=== PATIENT | female | born 1975 | race Caucasian/White ===

== ENCOUNTER → 2016-07-06 | Emergency (ER) | payer BC ==
[~2016-07-06] VITALS: Ht 167.6 cm; Wt 104.3 kg
[~2016-07-06] MED LIST: ASPI325T OR; ASPI81CH PO; ASPI81TA83 OR; ATOR1TAB21 PO; ESTR3TA OR; LIPI80TA OR; LOPR50TA OR; TRAM50TA2 OR
[2016-07-06 12:13] VITALS: BP 155/103
== END | disposition left against medical advice (07) ==
LOC: M ED 15:48
DX: R05 Cough (principal); Z53.29 Procedure and treatment not carried out because of patient's decision for other reasons

== ENCOUNTER → 2016-10-04 | Outpatient (CLI) | payer BC ==
--- NOTE | 2016-10-05 08:20 | REP ---
RIGHT FOOT, FOUR VIEWS: HISTORY: Sprain. There is no acute fracture or dislocation. The joint spaces are normal in appearance. IMPRESSION: There is no acute fracture or dislocation. Signed by Ag Sharma MD 10/05/2016 08:35 A
== END ==
LOC: M WUC 10:56
PROVIDERS: ATTEND Physician Assistant
DX: S93.601A Unspecified sprain of right foot, initial encounter (principal); W18.30XA Fall on same level, unspecified, initial encounter; Y92.009 Unspecified place in unspecified non-institutional (private) residence as the place of occurrence of the external cause

== ENCOUNTER 2016-12-19 13:51 | Emergency (ER) | payer BC ==
[~2016-12-19] VITALS: Ht 167.6 cm; Wt 110.7 kg
[2016-12-19] MEDS ORDERED: CIPR-250 PO (14:12)
[2016-12-19] MEDS ORDERED: NORCO, ANEXSIA 5/325MG TABLET (HYDROcodone/ACETAMINOPHEN) PO ONE (16:45)
[2016-12-19] MEDS ORDERED: ONDANSETRON 4 MG ORAL DISINTEGRATING TAB (S0181) PO ONE (16:45)
[2016-12-19 16:54] LABS: BASO % 0.5 % (0.0-1.0); EOS # 0.2 K/mm3 (0.0-0.50); EOS % 2.6 % (0.0-3.0); LARGE UNSTAINED CELL # 0.2 K/mm3 (0.0-0.4); LARGE UNSTAINED CELL % 1.9 % (0.0-4.0); LYMPH # 2.9 K/mm3 (1.5-4.5); LYMPH % 27.5 % (24.0-44.0); MEAN CORPUSCULAR HGB CONC 35.2 g/dl (32.0-36.5); MEAN CORPUSCULAR VOLUME 93.9 fl (80.0-96.0); MONO # 0.7 K/mm3 (0.0-0.8); MONO % 6.7 % (0.0-5.0); NEUTROPHILS % 60.8 % (36.0-66.0); PLATELET COUNT, AUTOMATED 378 k/mm3 (150-450); RED CELL DISTRIBUTION WIDTH 13.5 % (11.5-14.5); WHITE BLOOD COUNT 9.8 K/mm3 (4.0-10.0)
[2016-12-19 17:34] LABS: ANION GAP 10 MEQ/L (8-16); BLOOD UREA NITROGEN 9 MG/DL (7-18); CALCIUM LEVEL 8.8 MG/DL (8.5-10.1); CARBON DIOXIDE LEVEL 23 MEQ/L (21-32); CHLORIDE LEVEL 110 MEQ/L (98-107); CREATININE FOR GFR 0.68 MG/DL (0.55-1.02); GLOMERULAR FILTRATION RATE > 60.0 (>58); GLUCOSE, FASTING 105 MG/DL (70-105); POTASSIUM SERUM 4.2 MEQ/L (3.5-5.1); SODIUM LEVEL 143 MEQ/L (136-145)
[2016-12-19 17:47] VITALS: BP 124/85
[2016-12-19] MEDS ORDERED: ULTR50TA8 PO (18:33)
--- NOTE | 2016-12-19 19:02 | REP ---
Left upper quadrant sonography: History: Evaluate spleen, left kidney. History of splenic cyst. Comparison is made with the CT study of the abdomen from 12/18/2015, [facility] exam. This study showed a 14 mm left adrenal nodule and some irregularity which appears to be old post-traumatic in the spleen along its superior surface. Sonographic findings: Renal cortical echogenicity pattern is normal in the left kidney. Left renal dimensions are 10.6 x 5.6 x 5.4 cm. No renal cyst, hydronephrosis, or mass is seen. The spleen appears homogeneous sonographically measuring 9.9 x 9.2 x 5.1 cm. No splenic irregularity can be resolved sonographically to correspond with the CT finding. The left adrenal gland could not be seen. Signed by Saúl Fernandez MD 12/19/2016 07:41 P
== END 2016-12-19 18:41 | disposition home or self-care (01) ==
LOC: M ED 13:51
DX: R10.9 Unspecified abdominal pain (principal); I25.2 Old myocardial infarction; I10 Essential (primary) hypertension; E78.00 Pure hypercholesterolemia, unspecified; F32.9 Major depressive disorder, single episode, unspecified; Z79.82 Long term (current) use of aspirin; Z79.899 Other long term (current) drug therapy; Z88.0 Allergy status to penicillin; Z91.040 Latex allergy status; Z90.49 Acquired absence of other specified parts of digestive tract; Z90.79 Acquired absence of other genital organ(s)

== ENCOUNTER 2017-01-02 21:25 | Emergency (ER) | payer BC ==
[~2017-01-02] VITALS: Ht 167.6 cm; Wt 92.7 kg
[2017-01-02 21:25] VITALS: BP 136/92
[~2017-01-02 21:25] MED LIST changes: +CIPR-250 PO; +ULTR50TA8 PO
[2017-01-02] MEDS ORDERED: BACTRIM 160MG/800MG DS TAB PO ONE (22:15)
[2017-01-02] MEDS ORDERED: CLINDAMYCIN 150 MG CAP PO ONE (22:15)
[2017-01-02] MEDS ORDERED: SULF1TAB23 PO (22:30)
[2017-01-02] MEDS ORDERED: CLIN150C14 PO (22:30)
== END 2017-01-02 22:39 | disposition home or self-care (01) ==
LOC: M ED 21:25
DX: S61.232A Puncture wound without foreign body of right middle finger without damage to nail, initial encounter (principal); S61.252A Open bite of right middle finger without damage to nail, initial encounter; W55.01XA Bitten by cat, initial encounter; Y92.019 Unspecified place in single-family (private) house as the place of occurrence of the external cause; Y93.89 Activity, other specified; Y99.8 Other external cause status; Z79.899 Other long term (current) drug therapy; Z79.82 Long term (current) use of aspirin; Z91.040 Latex allergy status; Z88.0 Allergy status to penicillin

== ENCOUNTER 2017-10-16 08:42 | Day surgery (SDC) | payer BC ==
[2017-10-16] MEDS: NS 1,000 ML IV (09:30)
[2017-10-16] MEDS ORDERED: LIDOCAINE 2% INJ 100 MG/5 ML SDV (FOR ANES.) As Ordered (10:09)
[2017-10-16] MEDS ORDERED: PROPOFOL 200 MG/20 ML VIAL As Ordered (10:09)
== END 2017-10-16 11:36 | disposition home or self-care (01) ==
LOC: M OPP 08:42
DX: K64.8 Other hemorrhoids (principal); D12.4 Benign neoplasm of descending colon; K52.9 Noninfective gastroenteritis and colitis, unspecified; R93.3 Abnormal findings on diagnostic imaging of other parts of digestive tract; E78.00 Pure hypercholesterolemia, unspecified; F17.210 Nicotine dependence, cigarettes, uncomplicated; Z79.82 Long term (current) use of aspirin; Z79.899 Other long term (current) drug therapy; Z91.040 Latex allergy status; Z88.0 Allergy status to penicillin; Z90.49 Acquired absence of other specified parts of digestive tract; Z90.711 Acquired absence of uterus with remaining cervical stump; Z87.59 Personal history of other complications of pregnancy, childbirth and the puerperium
CPT/HCPCS: 45385

== ENCOUNTER 2017-11-30 17:18 | Emergency (ER) | payer BC | END 2017-11-30 20:18 | disposition home or self-care (01) | LOC: M ED 17:18 | DX: M54.5 Low back pain (principal); I10 Essential (primary) hypertension; I25.2 Old myocardial infarction; F32.9 Major depressive disorder, single episode, unspecified; F17.200 Nicotine dependence, unspecified, uncomplicated; Z88.0 Allergy status to penicillin; Z91.040 Latex allergy status; Z79.899 Other long term (current) drug therapy; Z79.82 Long term (current) use of aspirin | CPT/HCPCS: 72131 ==

== ENCOUNTER 2017-12-06 14:05 | Emergency (ER) | payer BC | END 2017-12-06 15:13 | disposition home or self-care (01) | LOC: M ED 14:05 | DX: M54.41 Lumbago with sciatica, right side (principal); M51.36 Other intervertebral disc degeneration, lumbar region; I10 Essential (primary) hypertension; I25.2 Old myocardial infarction; E78.00 Pure hypercholesterolemia, unspecified; Z91.040 Latex allergy status; Z88.0 Allergy status to penicillin; Z79.899 Other long term (current) drug therapy; Z79.82 Long term (current) use of aspirin | CPT/HCPCS: 99282 ==

== ENCOUNTER 2018-01-10 12:34 | Emergency (ER) | payer BC ==
[2018-01-10] MEDS: KETOROLAC 60 MG/2 ML VIAL (J1885) IM (13:42)
[2018-01-10] MEDS: predniSONE 20 MG TAB PO (13:42)
== END 2018-01-10 14:10 | disposition home or self-care (01) ==
LOC: M ED 12:34
DX: M54.5 Low back pain (principal); M51.9 Unspecified thoracic, thoracolumbar and lumbosacral intervertebral disc disorder; I25.10 Atherosclerotic heart disease of native coronary artery without angina pectoris; I25.2 Old myocardial infarction; Z88.0 Allergy status to penicillin; Z91.040 Latex allergy status; Z79.899 Other long term (current) drug therapy; Z79.82 Long term (current) use of aspirin
CPT/HCPCS: J1885

== ENCOUNTER 2018-02-09 10:50 | Emergency (ER) | payer BC ==
[2018-02-09 11:50] LABS: BASO # 0.1 10^3/uL (0.0-0.2); BASO % 0.5 % (0.0-1.0); EOS # 0.2 10^3/uL (0.0-0.50); EOS % 1.5 % (0.0-3.0); HEMATOCRIT 41.8 % (36.0-47.0); HEMOGLOBIN 14.4 g/dl (12.0-15.5); IMMATURE GRANULOCYTE % 0.4 % (0-3.0); LYMPH % 26.9 % (24.0-44.0); MEAN CORPUSCULAR HEMOGLOBIN 32.1 pg (27.0-33.0); MEAN CORPUSCULAR HGB CONC 34.4 g/dl (32.0-36.5); MEAN CORPUSCULAR VOLUME 93.3 fl (80.0-96.0); MONO # 0.9 10^3/uL (0.0-0.8); MONO % 8.4 % (0.0-5.0); NEUTROPHILS % 62.3 % (36.0-66.0); PLATELET COUNT, AUTOMATED 366 10^3/uL (150-450); RED BLOOD COUNT 4.48 10^6/uL (4.00-5.40); RED CELL DISTRIBUTION WIDTH 13.3 % (11.5-14.5); WHITE BLOOD COUNT 11.3 10^3/uL (4.0-10.0)
[2018-02-09 12:03] LABS: INR 0.96; PROTHROMBIN TIME 12.9 SECONDS (12.1-14.4)
[2018-02-09 12:04] LABS: PARTIAL THROMBOPLASTIN TIME 28.1 SECONDS (25.4-37.6)
[2018-02-09 12:28] LABS: ALBUMIN 3.2 GM/DL (3.2-5.2); ALKALINE PHOSPHATASE 94 U/L (45-117); ALT/SGPT 22 U/L (12-78); ANION GAP 7 MEQ/L (8-16); AST/SGOT 19 U/L (7-37); BILIRUBIN,DIRECT < 0.1 MG/DL (0.0-0.2); BILIRUBIN,TOTAL 0.2 MG/DL (0.2-1.0); BLOOD UREA NITROGEN 11 MG/DL (7-18); CALCIUM LEVEL 8.5 MG/DL (8.5-10.1); CARBON DIOXIDE LEVEL 25 MEQ/L (21-32); CHLORIDE LEVEL 109 MEQ/L (98-107); CPK CREATINE PHOSPHOKINASE 120 U/L (26-192); GLOMERULAR FILTRATION RATE > 60.0 (>58); GLUCOSE, FASTING 97 MG/DL (70-100); MB/CK RELATIVE INDEX 0.83 (< OR =4); POTASSIUM SERUM 3.7 MEQ/L (3.5-5.1); SODIUM LEVEL 141 MEQ/L (136-145); TOTAL PROTEIN 7.2 GM/DL (6.4-8.2); TROPONIN I < 0.02 NG/ML (< 0.10)
[2018-02-09 14:48] LABS: KETONE, URINE AUTO RFX NEGATIVE (NEGATIVE)
[2018-02-09 14:49] LABS: LEUKOCYTE ESTERASE UR AUTO RFX NEGATIVE (NEGATIVE); MICROSCOPIC INDICATED? RFX NO (NO); NITRITE, URINE AUTO RFX NEGATIVE (NEGATIVE); RBC, URINE AUTO RFX 0 /HPF (0-3); WBC, URINE AUTO RFX 1 /HPF (0-3)
[2018-02-09 17:42] LABS: CK-MB VALUE MASS < 1.0 NG/ML (<3.6); CPK CREATINE PHOSPHOKINASE 115 U/L (26-192); MB/CK RELATIVE INDEX 0.87 (< OR =4); TROPONIN I < 0.02 NG/ML (< 0.10)
== END 2018-02-09 18:29 | disposition home or self-care (01) ==
LOC: M ED 10:50
DX: R42 Dizziness and giddiness (principal); R20.2 Paresthesia of skin; I25.2 Old myocardial infarction; M48.00 Spinal stenosis, site unspecified; M51.9 Unspecified thoracic, thoracolumbar and lumbosacral intervertebral disc disorder; Z72.0 Tobacco use; Z79.82 Long term (current) use of aspirin; Z79.899 Other long term (current) drug therapy; Z88.0 Allergy status to penicillin; Z91.040 Latex allergy status
CPT/HCPCS: 70551

== ENCOUNTER → 2018-02-24 | Outpatient (REF) | payer BC ==
[2018-02-24 17:37] LABS: PLATELET COUNT, AUTOMATED 451 10^3/uL (150-450)
[2018-02-24 17:39] LABS: INR 0.95; PROTHROMBIN TIME 12.8 SECONDS (12.1-14.4)
[2018-02-24 17:40] LABS: PARTIAL THROMBOPLASTIN TIME 29.1 SECONDS (25.4-37.6)
== END ==
LOC: M LABNEURO 12:03
DX: Z01.812 Encounter for preprocedural laboratory examination (principal); D69.1 Qualitative platelet defects

== ENCOUNTER 2018-04-07 21:13 | Emergency (ER) | payer MEDICAID, BC | END 2018-04-07 22:37 | disposition home or self-care (01) | LOC: M ED 21:13 | DX: M48.00 Spinal stenosis, site unspecified (principal); W19.XXXA Unspecified fall, initial encounter; Y92.090 Kitchen in other non-institutional residence as the place of occurrence of the external cause; M54.9 Dorsalgia, unspecified; F17.210 Nicotine dependence, cigarettes, uncomplicated; Z88.0 Allergy status to penicillin; Z91.040 Latex allergy status | CPT/HCPCS: 99284 ==

== ENCOUNTER 2018-05-12 13:01 | Emergency (ER) | payer BC, OTHER ==
[~2018-05-12] VITALS: Ht 167.6 cm; Wt 109.1 kg
[~2018-05-12 13:01] MED LIST changes: +ATOR80TA59 PO; +CLIN150C14 PO; +GABA-843 PO; +MOBI4TAB PO; +NORCOTAB PO; +PRED10TA2 PO; +PRED20TA PO; +SULF1TAB93 PO; +VARE1TA PO; +ZANA4TAB PO
--- NOTE | 2018-05-12 13:32 | REP ---
Portable chest x-ray: Single view. History: Chest pain. Comparison chest x-ray: February 09, 2018. Findings: EKG monitoring electrodes overlie the chest. The lungs are well inflated and clear. The pleural angles are sharp. Heart size is normal. Pulmonary vasculature is not increased. No significant bony abnormality is seen. Impression: No active disease. Electronically Signed by Saúl Fernandez MD 05/12/2018 01:24 P
[2018-05-12 13:45] LABS: BASO # 0.1 10^3/uL (0.0-0.2); BASO % 0.5 % (0.0-1.0); EOS # 0.2 10^3/uL (0.0-0.50); EOS % 1.6 % (0.0-3.0); HEMATOCRIT 42.9 % (36.0-47.0); HEMOGLOBIN 14.9 g/dl (12.0-15.5); LYMPH # 3.1 10^3/uL (1.5-4.5); LYMPH % 25.4 % (24.0-44.0); MEAN CORPUSCULAR HEMOGLOBIN 32.5 pg (27.0-33.0); MEAN CORPUSCULAR HGB CONC 34.7 g/dl (32.0-36.5); MEAN CORPUSCULAR VOLUME 93.5 fl (80.0-96.0); MONO # 0.9 10^3/uL (0.0-0.8); NEUTROPHILS # 7.8 10^3/uL (1.8-7.7); PLATELET COUNT, AUTOMATED 428 10^3/uL (150-450); RED BLOOD COUNT 4.59 10^6/uL (4.00-5.40); WHITE BLOOD COUNT 12.1 10^3/uL (4.0-10.0)
[2018-05-12 13:54] LABS: INR 0.91; PROTHROMBIN TIME 12.3 SECONDS (12.1-14.4)
[2018-05-12] MEDS ORDERED: methylPREDNISolone INJ 125 MG/2 ML VIAL (J2930) IV ONE (14:00)
[2018-05-12] MEDS ORDERED: IPRATROPIUM 0.5MG/ALBUTEROL 2.5MG INH SOL UD 3ML (DUONEB)(J7620) NEB ONE (14:00)
[2018-05-12 14:25] LABS: ALBUMIN 3.4 GM/DL (3.2-5.2); ALT/SGPT 27 U/L (12-78); BILIRUBIN,DIRECT < 0.1 MG/DL (0.0-0.2); BILIRUBIN,TOTAL 0.3 MG/DL (0.2-1.0); BLOOD UREA NITROGEN 8 MG/DL (7-18); CALCIUM LEVEL 8.3 MG/DL (8.5-10.1); CARBON DIOXIDE LEVEL 24 MEQ/L (21-32); CHLORIDE LEVEL 105 MEQ/L (98-107); CK-MB VALUE MASS < 1.0 NG/ML (<3.6); CPK CREATINE PHOSPHOKINASE 130 U/L (26-192); CREATININE FOR GFR 0.74 MG/DL (0.55-1.30); GLOMERULAR FILTRATION RATE > 60.0 (>58); GLUCOSE, FASTING 119 MG/DL (70-100); LIPASE 88 U/L (73-393); MB/CK RELATIVE INDEX 0.77 (< OR =4); NT-PRO BNP 20 PG/ML (<125); POTASSIUM SERUM 4.3 MEQ/L (3.5-5.1); SODIUM LEVEL 136 MEQ/L (136-145); TROPONIN I < 0.02 NG/ML (< 0.10)
[2018-05-12] MEDS ORDERED: ISOVUE-370 76% 100ML VIAL (Q9967) As Ordered ONE (14:36)
[2018-05-12] MEDS ORDERED: ALBU17IN2 INH (15:31)
[2018-05-12] MEDS ORDERED: ZITHTAB PO (15:31)
[2018-05-12] MEDS ORDERED: PRED10TA2 PO (15:31)
--- NOTE | 2018-05-12 15:36 | REP ---
CT pulmonary angiogram: With IV contrast. History: Chest pain. Tachycardia. Rule out pulmonary embolus. Comparison studies: Comparison CT study July 11, 2011 Contrast dose: 75 cc's of Isovue [address] technique: Helical scanning is acquired and overlapping 1.5 mm and contiguous 3 mm axial images are reformatted. In addition, maximum intensity projection and multiplanar re-formation images are generated in sagittal and coronal imaging projections. CT pulmonary angiographic findings: There is good opacification of the pulmonary arterial tree and there is no CT evidence of pulmonary embolism. The thoracic aorta enhances homogeneously. It is normal in coarse and caliber. No aneurysm or dissection is seen. No hilar or mediastinal mass or adenopathy is observed. No pleural or pericardial effusion is seen. There is some vascular calcification including left coronary artery vascular calcification. There are several noncalcified tiny subcentimeter pulmonary nodules all of which are unchanged from the [address] The largest of these is in the left lower lobe measuring 5 mm in diameter. No infiltrate is seen. No bony destructive lesion. Impression: No CT evidence of pulmonary embolus. Some vascular calcification. Stable pulmonary nodules. No active disease. Electronically Signed by Saúl Fernandez MD 05/12/2018 05:56 P
--- NOTE | 2018-05-12 15:39 | ECGEPIP ---
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
[2018-05-12 15:50] VITALS: BP 135/59
--- NOTE | 2018-05-13 15:46 | ED PDOC ---
Post-Departure Follow-Up dr uribe faxed formal report of cta for fu Keo Hernandez MD May 13, 2018 15:46
== END 2018-05-12 15:53 | disposition home or self-care (01) ==
LOC: M ED 13:01
DX: J40 Bronchitis, not specified as acute or chronic (principal); F17.210 Nicotine dependence, cigarettes, uncomplicated; E78.5 Hyperlipidemia, unspecified; Z88.0 Allergy status to penicillin; Z79.899 Other long term (current) drug therapy; Z79.82 Long term (current) use of aspirin; Z91.040 Latex allergy status
CPT/HCPCS: 71045; 71275; 80048; 80076; 82550; 82553; 83690; 83880; 84443; 84484; 85025; 85610; 93005; 93041; 94640; 94760; 96374; 99285; J2930; Q9967

== ENCOUNTER 2018-06-22 20:33 | Emergency (ER) | payer BC, OTHER ==
[~2018-06-22] VITALS: Ht 167.6 cm; Wt 109.1 kg
[~2018-06-22 20:33] MED LIST changes: +ALBU17IN2 INH; +ZITHTAB PO
[2018-06-22] MEDS ORDERED: PRED20TA PO (23:27)
[2018-06-22] MEDS ORDERED: predniSONE 20 MG TAB PO ONE (23:30)
[2018-06-22] MEDS ORDERED: tiZANidine 4 MG TAB PO ONE (23:30)
[2018-06-22 23:53] VITALS: BP 138/72
== END 2018-06-22 23:53 | disposition home or self-care (01) ==
LOC: M ED 20:33
DX: M54.42 Lumbago with sciatica, left side (principal); I10 Essential (primary) hypertension; I25.2 Old myocardial infarction; G47.33 Obstructive sleep apnea (adult) (pediatric); M48.00 Spinal stenosis, site unspecified; M51.9 Unspecified thoracic, thoracolumbar and lumbosacral intervertebral disc disorder; F17.200 Nicotine dependence, unspecified, uncomplicated; Z88.0 Allergy status to penicillin; Z91.040 Latex allergy status; Z79.82 Long term (current) use of aspirin; Z79.899 Other long term (current) drug therapy

== ENCOUNTER 2018-07-08 12:03 | Emergency (ER) | payer BC ==
[~2018-07-08] VITALS: Ht 167.6 cm; Wt 109.1 kg
[2018-07-08] MEDS ORDERED: GABA800T4 (12:15)
[2018-07-08 13:41] LABS: BASO # 0.1 10^3/uL (0.0-0.2); BASO % 0.5 % (0.0-1.0); EOS # 0.1 10^3/uL (0.0-0.50); EOS % 1.3 % (0.0-3.0); HEMATOCRIT 43.5 % (36.0-47.0); HEMOGLOBIN 14.6 g/dl (12.0-15.5); LYMPH # 2.6 10^3/uL (1.5-4.5); MEAN CORPUSCULAR HGB CONC 33.6 g/dl (32.0-36.5); MEAN CORPUSCULAR VOLUME 95.4 fl (80.0-96.0); MONO # 0.7 10^3/uL (0.0-0.8); MONO % 6.8 % (0.0-5.0); NEUTROPHILS # 6.8 10^3/uL (1.8-7.7); NEUTROPHILS % 66.1 % (36.0-66.0); PLATELET COUNT, AUTOMATED 394 10^3/uL (150-450); RED BLOOD COUNT 4.56 10^6/uL (4.00-5.40); WHITE BLOOD COUNT 10.3 10^3/uL (4.0-10.0)
--- NOTE | 2018-07-08 14:10 | REP ---
Acute abdominal series: Three views. History: Abdomen pain. Comparison chest x-rays from May 12, 2018. Findings: Today's upright chest radiograph is normal. There is no evidence of infiltrate or free subdiaphragmatic air. Heart is not enlarged. Supine and erect views of the abdomen show clips in the right upper quadrant consistent with previous cholecystectomy. There is some mild vascular calcification. Degenerative spondylosis changes are noted in the lumbar spine. No other bony abnormality is seen. Flank stripes and psoas margins are symmetric. Bowel gas pattern is normal. Impression: Unremarkable acute abdominal series. Clips in right upper quadrant post cholecystectomy. Electronically Signed by Saúl Fernandez MD 07/08/2018 02:02 P
[2018-07-08 14:12] LABS: BLOOD UREA NITROGEN 13 MG/DL (7-18); CALCIUM LEVEL 8.6 MG/DL (8.5-10.1); CARBON DIOXIDE LEVEL 24 MEQ/L (21-32); CHLORIDE LEVEL 107 MEQ/L (98-107); CPK CREATINE PHOSPHOKINASE 108 U/L (26-192); CREATININE FOR GFR 0.65 MG/DL (0.55-1.30); GLOMERULAR FILTRATION RATE > 60.0 (>58); GLUCOSE, FASTING 107 MG/DL (70-100); LIPASE 119 U/L (73-393); MB/CK RELATIVE INDEX 0.93 (< OR =4); POTASSIUM SERUM 4.3 MEQ/L (3.5-5.1); SODIUM LEVEL 139 MEQ/L (136-145); TROPONIN I < 0.02 NG/ML (< 0.10)
[2018-07-08 15:27] VITALS: BP 130/84
--- NOTE | 2018-07-09 07:00 | ECGEPIP ---
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
== END 2018-07-08 15:29 | disposition home or self-care (01) ==
LOC: M ED 12:03
DX: R10.12 Left upper quadrant pain (principal); R11.0 Nausea; E78.5 Hyperlipidemia, unspecified; I25.2 Old myocardial infarction; K57.92 Diverticulitis of intestine, part unspecified, without perforation or abscess without bleeding; F17.210 Nicotine dependence, cigarettes, uncomplicated; Z88.0 Allergy status to penicillin; Z91.040 Latex allergy status; Z79.899 Other long term (current) drug therapy; Z79.82 Long term (current) use of aspirin

== ENCOUNTER → 2018-09-17 | Outpatient (REF) | payer BC ==
[~2018-09-17] MED LIST changes: -ASPI81CH PO; +ASPI81CH49 PO; +GABA800T4; +HYDR-3715 PO; -NORCOTAB PO
[2018-09-17 14:55] LABS: ALBUMIN 3.3 GM/DL (3.2-5.2); ALT/SGPT 17 U/L (12-78); BILIRUBIN,TOTAL 0.5 MG/DL (0.2-1.0); BLOOD UREA NITROGEN 8 MG/DL (7-18); CALCIUM LEVEL 8.3 MG/DL (8.5-10.1); CARBON DIOXIDE LEVEL 23 MEQ/L (21-32); CHLORIDE LEVEL 108 MEQ/L (98-107); CHOLESTEROL LEVEL 138 MG/DL (<200); CHOLESTEROL RISK RATIO 4.058 (<5); CREATININE FOR GFR 0.67 MG/DL (0.55-1.30); GLOMERULAR FILTRATION RATE > 60.0 (>58); GLUCOSE, FASTING 108 MG/DL (70-100); HDL CHOLESTEROL 34 MG/DL (>40); LDL CHOLESTEROL 71 MG/DL (<100); NON-HDL-C 104 MG/DL; POTASSIUM SERUM 3.9 MEQ/L (3.5-5.1); SODIUM LEVEL 139 MEQ/L (136-145); TOTAL PROTEIN 7.1 GM/DL (6.4-8.2); TRIGLYCERIDES LEVEL 164 MG/DL (<150)
== END ==
LOC: M LAB REF 12:54
PROVIDERS: ATTEND Family Medicine Addiction Medicine
DX: I25.2 Old myocardial infarction (principal)

== ENCOUNTER 2018-10-08 07:44 | Day surgery (SDC) | payer BC ==
[~2018-10-08] VITALS: Ht 167.6 cm; Wt 115.2 kg
[~2018-10-08 07:44] MED LIST changes: +CYMB1CAP4 PO; +LR 1,000 ML IV ONE; +LevoFLOXacin IV 500 MG in APPROPRIATE DILUENT 1 EA IV ONE
[2018-10-08] MEDS ORDERED: LIDOCAINE 1% SDV INJ 30 ML VIAL As Ordered ONE (09:37)
[2018-10-08] MEDS ORDERED: BUPIVACAINE HCL 0.25% 30 ML VIAL As Ordered ONE ×2 (09:37→10:27)
[2018-10-08] MEDS ORDERED: MIDAZOLAM INJ 2 MG/2 ML VIAL (J2250) As Ordered ONE (10:17)
[2018-10-08] MEDS ORDERED: dexameTHASONE 4 MG/ML 1ML VIAL (J1100) As Ordered ONE (10:17)
[2018-10-08] MEDS ORDERED: ROCURONIUM BROMIDE 50 MG/5 ML VIAL As Ordered ONE ×2 (10:17→10:24)
[2018-10-08] MEDS ORDERED: PROPOFOL 200 MG/20 ML VIAL As Ordered ONE (10:17)
[2018-10-08] MEDS ORDERED: LIDOCAINE 2% INJ 100 MG/5 ML SDV (FOR ANES.) As Ordered ONE (10:17)
[2018-10-08] MEDS ORDERED: fentaNYL 100 MCG/2 ML INJECTION (J3010) As Ordered ONE ×2 (10:17→10:24)
[2018-10-08] MEDS ORDERED: ONDANSETRON 4MG/2ML VIAL (J2405) As Ordered ONE ×3 (10:19→11:34)
[2018-10-08] MEDS ORDERED: PHENYLephrine HCL 500 MCG/5 ML (100MCG/ML) SYRINGE (J2370) As Ordered ONE (10:25)
[2018-10-08] MEDS ORDERED: SUGAMMADEX SODIUM 500 MG/5 ML VIAL (BRIDION) As Ordered ONE (10:51)
[2018-10-08] MEDS ORDERED: KETOROLAC 60 MG/2 ML VIAL (J1885) As Ordered ONE (10:51)
[2018-10-08] MEDS ORDERED: PERCOCET 5MG/325MG TAB As Ordered ONE (11:34)
[2018-10-08] MEDS: PERCOCET 5MG/325MG TAB PO PRN ×2 (11:40→12:22)
[2018-10-08] MEDS ORDERED: KETOROLAC 30 MG/ML VIAL (J1885) IV PRN (12:00)
[2018-10-08] MEDS ORDERED: NORCO, ANEXSIA 5/325MG TABLET (HYDROcodone/ACETAMINOPHEN) PO PRN ×2 (12:00)
[2018-10-08] MEDS ORDERED: ONDANSETRON 4MG/2ML VIAL (J2405) IV PRN ×2 (12:00→12:15)
[2018-10-08] MEDS ORDERED: LR 1,000 ML IV SCH (12:15)
[2018-10-08] MEDS ORDERED: fentaNYL 100 MCG/2 ML INJECTION (J3010) IV PRN (12:15)
[2018-10-08 12:50] VITALS: BP 137/84
== END 2018-10-08 12:53 | disposition home or self-care (01) ==
LOC: M SDC 07:44
PROVIDERS: ATTEND Surgery
DX: K42.9 Umbilical hernia without obstruction or gangrene (principal); E78.00 Pure hypercholesterolemia, unspecified; I25.2 Old myocardial infarction; F32.9 Major depressive disorder, single episode, unspecified; F17.210 Nicotine dependence, cigarettes, uncomplicated; G47.30 Sleep apnea, unspecified; Z88.0 Allergy status to penicillin; Z91.040 Latex allergy status; Z79.82 Long term (current) use of aspirin; Z79.899 Other long term (current) drug therapy
CPT/HCPCS: 49652; C1781; J1100; J1885; J1956; J2250; J2370; J2405; J3010

== ENCOUNTER 2018-10-15 17:25 | Emergency (ER) | payer BC ==
[~2018-10-15] VITALS: Ht 167.6 cm; Wt 111.4 kg
[~2018-10-15 17:25] MED LIST changes: -LR 1,000 ML IV ONE; -LevoFLOXacin IV 500 MG in APPROPRIATE DILUENT 1 EA IV ONE
[2018-10-15] MEDS ORDERED: HYDR-3713 PO (17:48)
[2018-10-15] MEDS ORDERED: DULO1CAP PO (17:48)
[2018-10-15] MEDS ORDERED: ACET-861 PO (17:48)
[2018-10-15] MEDS ORDERED: NITR0.4S14 SL (17:48)
[2018-10-15] MEDS ORDERED: NORT10CA2 PO (17:48)
[2018-10-15] MEDS ORDERED: NS 1,000 ML IV ONE (18:30)
[2018-10-15 18:38] LABS: BASO # 0.1 10^3/uL (0.0-0.2); BASO % 0.5 % (0.0-1.0); EOS # 0.2 10^3/uL (0.0-0.50); EOS % 1.7 % (0.0-3.0); HEMATOCRIT 43.8 % (36.0-47.0); HEMOGLOBIN 15.2 g/dl (12.0-15.5); LYMPH # 3.5 10^3/uL (1.5-4.5); LYMPH % 26.1 % (24.0-44.0); MEAN CORPUSCULAR HEMOGLOBIN 33.3 pg (27.0-33.0); MEAN CORPUSCULAR HGB CONC 34.7 g/dl (32.0-36.5); MEAN CORPUSCULAR VOLUME 96.1 fl (80.0-96.0); MONO % 7.1 % (0.0-5.0); NEUTROPHILS # 8.5 10^3/uL (1.8-7.7); NEUTROPHILS % 64.1 % (36.0-66.0); PLATELET COUNT, AUTOMATED 394 10^3/uL (150-450); RED BLOOD COUNT 4.56 10^6/uL (4.00-5.40); WHITE BLOOD COUNT 13.3 10^3/uL (4.0-10.0)
[2018-10-15 19:14] LABS: BLOOD UREA NITROGEN 13 MG/DL (7-18); CARBON DIOXIDE LEVEL 29 MEQ/L (21-32); CHLORIDE LEVEL 102 MEQ/L (98-107); CREATININE FOR GFR 0.78 MG/DL (0.55-1.30); GLOMERULAR FILTRATION RATE > 60.0 (>58); GLUCOSE, FASTING 113 MG/DL (70-100); POTASSIUM SERUM 3.5 MEQ/L (3.5-5.1); SODIUM LEVEL 138 MEQ/L (136-145)
[2018-10-15 19:15] LABS: ALBUMIN 3.4 GM/DL (3.2-5.2); ALT/SGPT 19 U/L (12-78); AMYLASE 28 U/L (25-115); BILIRUBIN,DIRECT < 0.1 MG/DL (0.0-0.2); BILIRUBIN,TOTAL 0.2 MG/DL (0.2-1.0); CALCIUM LEVEL 8.7 MG/DL (8.5-10.1); LIPASE 78 U/L (73-393); TOTAL PROTEIN 7.7 GM/DL (6.4-8.2)
[2018-10-15] MEDS ORDERED: ISOVUE-370 76% 100ML VIAL (Q9967) As Ordered ONE (19:18)
--- NOTE | 2018-10-15 20:07 | REPVR ---
EXAM: CT Abdomen and Pelvis With Contrast EXAM DATE/TIME: 10/15/2018 7:20 PM CLINICAL HISTORY: 43 years old, female; Abdominal pain; Periumbilical; Additional info: Right abd pain pod 7 umbilical hernia repair TECHNIQUE: Imaging protocol: Axial computed tomography images of the abdomen and pelvis with intravenous contrast. Coronal and sagittal reformatted images were created and reviewed. Radiation optimization: All CT scans at this facility use at least one of these dose optimization techniques: automated exposure control; mA and/or kV adjustment per patient size (includes targeted exams where dose is matched to clinical indication); or iterative reconstruction. Contrast material: ISOVUE 370; Contrast volume: 100 ml; Contrast route: IV; COMPARISON: No relevant prior studies available. FINDINGS: ABDOMEN: Liver: There is a diffuse decrease in hepatic parenchymal density, consistent with fatty infiltration. Gallbladder and bile ducts: There has been a cholecystectomy. Pancreas: Normal. No ductal dilation. Spleen: Normal. No splenomegaly. Adrenals: There is a focal hypodense mass in the left adrenal gland measures 1.8 x 1.6 cm in, consistent in appearance and density with a benign adrenal adenoma. Kidneys and ureters: Normal. No hydronephrosis. Stomach and bowel: Normal. No obstruction. No mucosal thickening. Appendix: No evidence of appendicitis. PELVIS: Bladder: Unremarkable as visualized. Reproductive: There has been a hysterectomy. ABDOMEN and PELVIS: Intraperitoneal space: Normal. No free air. No significant fluid collection. Bones/joints: This moderate to severe central spinal stenosis L3-4, and mild to moderate central spinal stenosis at L4-5. Soft tissues: Postoperative changes demonstrated in the anterior abdominal wall status post umbilical hernia repair. A small narrow neck umbilical hernia appears to be present. Vasculature: The aorta demonstrates mild atherosclerotic calcification. Lymph nodes: Normal. No enlarged lymph nodes. IMPRESSION: 1. There has been a hysterectomy. 2. There is a diffuse decrease in hepatic parenchymal density, consistent with fatty infiltration. 3. There has been a cholecystectomy. 4. Postoperative changes demonstrated in the anterior abdominal wall status post umbilical hernia repair. A small narrow neck umbilical hernia appears to be present, which should be correlated clinically. Electronically signed by: Mayco Riggins On 10/15/2018 20:07:21 PM
[2018-10-15 20:31] VITALS: BP 112/59
--- NOTE | 2018-10-18 12:35 | ED PDOC ---
Post-Departure Follow-Up dr uribe and dr arias faxed formal report of ct abd/p for fu Keo Hernandez MD Oct 18, 2018 12:35
== END 2018-10-15 21:00 | disposition home or self-care (01) ==
LOC: M ED 18:12
DX: G89.18 Other acute postprocedural pain (principal); K76.0 Fatty (change of) liver, not elsewhere classified; Z88.0 Allergy status to penicillin; Z91.040 Latex allergy status; Z79.899 Other long term (current) drug therapy; Z79.82 Long term (current) use of aspirin
CPT/HCPCS: 36415; 74177; 80048; 80076; 82150; 83605; 83690; 85025; 99284; Q9967

== ENCOUNTER → 2018-12-20 | Outpatient (REF) | payer BC, MEDICAID ==
[~2018-12-20] MED LIST changes: +ACET-861 PO; -ALBU17IN2 INH; +DULO1CAP4 PO; +HYDR-3713 PO; +NITR0.4S14 SL; +NORT10CA2 PO; +PROV108A INH
[2018-12-20 13:28] LABS: BASO # 0.1 10^3/uL (0.0-0.2); BASO % 0.5 % (0.0-1.0); EOS # 0.2 10^3/uL (0.0-0.50); EOS % 1.6 % (0.0-3.0); HEMATOCRIT 44.6 % (36.0-47.0); HEMOGLOBIN 14.6 g/dl (12.0-15.5); LYMPH # 2.8 10^3/uL (1.5-4.5); LYMPH % 25.4 % (24.0-44.0); MEAN CORPUSCULAR HEMOGLOBIN 32.1 pg (27.0-33.0); MEAN CORPUSCULAR HGB CONC 32.7 g/dl (32.0-36.5); MONO # 0.8 10^3/uL (0.0-0.8); MONO % 7.5 % (0.0-5.0); NEUTROPHILS % 64.5 % (36.0-66.0); PLATELET COUNT, AUTOMATED 419 10^3/uL (150-450); RED BLOOD COUNT 4.55 10^6/uL (4.00-5.40); WHITE BLOOD COUNT 10.9 10^3/uL (4.0-10.0)
[2018-12-20 13:41] LABS: ALBUMIN 3.3 GM/DL (3.2-5.2); ALT/SGPT 15 U/L (12-78); BILIRUBIN,TOTAL 0.2 MG/DL (0.2-1.0); BLOOD UREA NITROGEN 14 MG/DL (7-18); CALCIUM LEVEL 8.9 MG/DL (8.5-10.1); CARBON DIOXIDE LEVEL 24 MEQ/L (21-32); CHLORIDE LEVEL 109 MEQ/L (98-107); CHOLESTEROL LEVEL 139 MG/DL (<200); CHOLESTEROL RISK RATIO 4.633 (<5); CREATININE FOR GFR 0.74 MG/DL (0.55-1.30); FREE T4 0.87 NG/DL (0.76-1.46); GLOMERULAR FILTRATION RATE > 60.0 (>58); GLUCOSE, FASTING 107 MG/DL (70-100); HDL CHOLESTEROL 30 MG/DL (>40); LDL CHOLESTEROL 54 MG/DL (<100); NON-HDL-C 109 MG/DL; POTASSIUM SERUM 4.2 MEQ/L (3.5-5.1); SODIUM LEVEL 140 MEQ/L (136-145); TOTAL PROTEIN 6.8 GM/DL (6.4-8.2); TRIGLYCERIDES LEVEL 277 MG/DL (<150)
[2018-12-20 13:45] LABS: HEMOGLOBIN A1c 6.4 %
[2018-12-20 13:56] LABS: TOTAL 25(OH) VITAMIN D 22.5 NG/ML (30.0-100.0)
== END ==
LOC: M LAB REF 12:42
PROVIDERS: ATTEND Nurse Practitioner Family
DX: Z00.01 Encounter for general adult medical examination with abnormal findings (principal)

== ENCOUNTER → 2019-03-22 | Outpatient (REF) | payer MEDICAID ==
[2019-03-22 12:19] LABS: BASO # 0.1 10^3/uL (0.0-0.2); BASO % 0.5 % (0.0-1.0); EOS # 0.2 10^3/uL (0.0-0.5); EOS % 2.1 % (0.0-3.0); HEMATOCRIT 44.4 % (36.0-47.0); HEMOGLOBIN 14.6 g/dl (12.0-15.5); LYMPH # 2.9 10^3/uL (1.5-5.0); LYMPH % 26.3 % (24.0-44.0); MEAN CORPUSCULAR HEMOGLOBIN 31.9 pg (27.0-33.0); MEAN CORPUSCULAR HGB CONC 32.9 g/dl (32.0-36.5); MEAN CORPUSCULAR VOLUME 96.9 fl (80.0-96.0); MONO # 0.8 10^3/uL (0.0-0.8); MONO % 7.3 % (0.0-5.0); NEUTROPHILS # 6.9 10^3/uL (1.5-8.5); NEUTROPHILS % 63.3 % (36.0-66.0); PLATELET COUNT, AUTOMATED 448 10^3/uL (150-450); RED BLOOD COUNT 4.58 10^6/uL (4.00-5.40)
[2019-03-22 12:44] LABS: ALBUMIN 3.6 GM/DL (3.2-5.2); ALT/SGPT 21 U/L (12-78); BILIRUBIN,TOTAL 0.4 MG/DL (0.2-1.0); BLOOD UREA NITROGEN 10 MG/DL (7-18); CARBON DIOXIDE LEVEL 25 MEQ/L (21-32); CHLORIDE LEVEL 108 MEQ/L (98-107); CHOLESTEROL LEVEL 164 MG/DL (<200); CHOLESTEROL RISK RATIO 4.555 (<5); CREATININE FOR GFR 0.73 MG/DL (0.55-1.30); GLOMERULAR FILTRATION RATE > 60.0 (>58); GLUCOSE, FASTING 107 MG/DL (70-100); HDL CHOLESTEROL 36 MG/DL (>40); LDL CHOLESTEROL 78 MG/DL (<100); NON-HDL-C 128 MG/DL; POTASSIUM SERUM 4.5 MEQ/L (3.5-5.1); SODIUM LEVEL 139 MEQ/L (136-145); TOTAL PROTEIN 7.3 GM/DL (6.4-8.2); TRIGLYCERIDES LEVEL 251 MG/DL (<150)
== END ==
LOC: M LAB REF 11:46
PROVIDERS: ATTEND Nurse Practitioner Family
DX: Z00.01 Encounter for general adult medical examination with abnormal findings (principal)

== ENCOUNTER 2019-05-22 10:44 | Emergency (ER) | payer MEDICAID, OTHER ==
[~2019-05-22] VITALS: Ht 167.6 cm; Wt 109.1 kg
[2019-05-22] MEDS ORDERED: METF-791 (10:58)
[2019-05-22] MEDS ORDERED: PROAAER10 (10:58)
[2019-05-22] MEDS ORDERED: VOLT1GEL15 (10:58)
[2019-05-22] MEDS ORDERED: GABA-845 (10:58)
[2019-05-22] MEDS ORDERED: ACETAMINOPHEN 500 MG TAB PO ONE (11:15)
[2019-05-22] MEDS ORDERED: KETOROLAC 30 MG/ML VIAL (J1885) IM ONE (12:00)
[2019-05-22 12:10] VITALS: BP 130/76
== END 2019-05-22 12:12 | disposition home or self-care (01) ==
LOC: EDBD 10:44 → M ED 10:44
DX: S39.012A Strain of muscle, fascia and tendon of lower back, initial encounter (principal); Y93.29 Activity, other involving ice and snow; Y92.89 Other specified places as the place of occurrence of the external cause; G47.33 Obstructive sleep apnea (adult) (pediatric); E78.5 Hyperlipidemia, unspecified; I25.10 Atherosclerotic heart disease of native coronary artery without angina pectoris; M48.00 Spinal stenosis, site unspecified; Z88.0 Allergy status to penicillin; Z91.040 Latex allergy status; Z79.899 Other long term (current) drug therapy
CPT/HCPCS: 96372; 99284; J1885

== ENCOUNTER → 2019-11-30 03:02 | Emergency (ER) | payer OTHER ==
[~2019-11-30 03:02] MED LIST changes: +GABA-845; +METF-838; +PREG50CA PO; +PROAAER10; +VOLT1GEL15
[2020-01-08 08:18] LABS: APPEARANCE, URINE CLEAR (CLEAR); BACTERIA, URINE AUTO NEGATIVE (NEGATIVE); BILIRUBIN, URINE AUTO NEGATIVE (NEGATIVE); BLOOD, URINE BLOOD NEGATIVE (NEGATIVE); COLOR, URINE YELLOW (YELLOW); GLUCOSE, URINE (UA) AUTO NEGATIVE (NEGATIVE); KETONE, URINE AUTO NEGATIVE (NEGATIVE); LEUKOCYTE ESTERASE, URINE AUTO NEGATIVE (NEGATIVE); MUCUS, URINE SMALL (NEGATIVE); NITRITE, URINE AUTO NEGATIVE (NEGATIVE); PROTEIN, URINE AUTO NEGATIVE (NEGATIVE); RBC, URINE AUTO 2 /HPF (0-3); SPECIFIC GRAVITY URINE AUTO 1.019 (1.002-1.035); SQUAMOUS EPITHELIAL CELL UR AU 1 /HPF (0-6); UROBILINOGEN, URINE AUTO 0.2 mg/dL (0.0-2.0); WBC, URINE AUTO 3 /HPF (0-3)
== END | disposition left against medical advice (07) ==
LOC: M ED 03:02
DX: Z53.21 Procedure and treatment not carried out due to patient leaving prior to being seen by health care provider (principal)

== ENCOUNTER 2019-12-25 10:56 | Emergency (ER) | payer OTHER ==
[~2019-12-25] VITALS: Ht 167.6 cm; Wt 109.1 kg
[~2019-12-25 10:56] MED LIST changes: -PREG50CA PO
[2019-12-25] MEDS ORDERED: PREG50CA PO (11:12)
[2019-12-25 11:15] VITALS: BP 125/93
[2019-12-25] MEDS ORDERED: CYCLOBENZAPRINE 5MG TABLET PO ONE (12:15)
== END 2019-12-25 12:40 | disposition home or self-care (01) ==
LOC: EDBD 10:56 → M ED 10:56
DX: S39.012A Strain of muscle, fascia and tendon of lower back, initial encounter (principal); V48.5XXA Car driver injured in noncollision transport accident in traffic accident, initial encounter; Y92.410 Unspecified street and highway as the place of occurrence of the external cause; M54.5 Low back pain; G89.29 Other chronic pain; M19.90 Unspecified osteoarthritis, unspecified site; Z88.0 Allergy status to penicillin; Z91.040 Latex allergy status; Z79.899 Other long term (current) drug therapy; Z79.82 Long term (current) use of aspirin

== ENCOUNTER → 2020-02-23 | Outpatient (REF) | payer OTHER, MEDICAID ==
[~2020-02-23] MED LIST changes: +PREG50CA PO
[2020-02-23 12:19] LABS: BASO # 0.1 10^3/uL (0.0-0.2); BASO % 0.6 % (0.0-1.0); EOS # 0.2 10^3/uL (0.0-0.5); EOS % 2.1 % (0.0-3.0); HEMOGLOBIN 14.9 g/dl (12.0-15.5); LYMPH # 2.9 10^3/uL (1.5-5.0); LYMPH % 27.1 % (24.0-44.0); MEAN CORPUSCULAR HEMOGLOBIN 31.1 pg (27.0-33.0); MEAN CORPUSCULAR HGB CONC 32.4 g/dl (32.0-36.5); MONO # 0.8 10^3/uL (0.0-0.8); MONO % 7.5 % (0.0-5.0); NEUTROPHILS # 6.6 10^3/uL (1.5-8.5); NEUTROPHILS % 62.1 % (36.0-66.0); PLATELET COUNT, AUTOMATED 390 10^3/uL (150-450); RED BLOOD COUNT 4.79 10^6/uL (4.00-5.40); WHITE BLOOD COUNT 10.6 10^3/uL (4.0-10.0)
[2020-02-23 12:50] LABS: ALBUMIN 3.5 GM/DL (3.2-5.2); ALT/SGPT 20 U/L (12-78); BILIRUBIN,TOTAL 0.4 MG/DL (0.2-1.0); BLOOD UREA NITROGEN 11 MG/DL (7-18); CARBON DIOXIDE LEVEL 24 MEQ/L (21-32); CHLORIDE LEVEL 108 MEQ/L (98-107); CHOLESTEROL LEVEL 150 MG/DL (<200); CHOLESTEROL RISK RATIO 4.411 (<5); CREATININE FOR GFR 0.74 MG/DL (0.55-1.30); GLOMERULAR FILTRATION RATE > 60.0 (>58); GLUCOSE, FASTING 96 MG/DL (70-100); HDL CHOLESTEROL 34 MG/DL (>40); LDL CHOLESTEROL 77 MG/DL (<100); NON-HDL-C 116 MG/DL; POTASSIUM SERUM 4.5 MEQ/L (3.5-5.1); SODIUM LEVEL 140 MEQ/L (136-145); TOTAL 25(OH) VITAMIN D 27.8 NG/ML (30.0-100.0); TRIGLYCERIDES LEVEL 197 MG/DL (<150)
== END ==
LOC: M LAB REF 11:36
PROVIDERS: ATTEND Nurse Practitioner Family
DX: R73.9 Hyperglycemia, unspecified (principal); Z72.0 Tobacco use; F17.290 Nicotine dependence, other tobacco product, uncomplicated; E66.09 Other obesity due to excess calories; E55.9 Vitamin D deficiency, unspecified

== ENCOUNTER → 2020-02-23 | Outpatient (CLI) | payer OTHER ==
[2020-02-23 09:49] LABS: PLATELET COUNT, AUTOMATED 336 10^3/uL (150-450)
[2020-02-23 11:27] LABS: INR 0.89; PROTHROMBIN TIME 12.2 SECONDS (12.5-14.3)
[2020-02-23 11:28] LABS: PARTIAL THROMBOPLASTIN TIME 28.8 SECONDS (24.2-38.5)
== END ==
LOC: M LAB 09:03
PROVIDERS: ATTEND Physician Assistant
DX: M51.36 Other intervertebral disc degeneration, lumbar region (principal)

== ENCOUNTER → 2020-03-21 | Outpatient (CLI) | payer OTHER | LOC: M LABSMTC 09:26 | PROVIDERS: ATTEND Physical Medicine & Rehabilitation | DX: Z01.812 Encounter for preprocedural laboratory examination (principal); Z20.828 Contact with and (suspected) exposure to other viral communicable diseases ==

== ENCOUNTER → 2020-05-23 | Outpatient (REF) | payer OTHER ==
[~2020-05-23] MED LIST changes: -CLIN150C14 PO; +CLIN150C15 PO; +GABA-282 PO; -GABA-843 PO
[2020-05-23 13:22] LABS: BASO # 0.1 10^3/uL (0.0-0.2); BASO % 0.5 % (0.0-1.0); EOS # 0.2 10^3/uL (0.0-0.5); EOS % 1.4 % (0.0-3.0); HEMATOCRIT 44.8 % (36.0-47.0); HEMOGLOBIN 14.7 g/dl (12.0-15.5); LYMPH # 2.6 10^3/uL (1.5-5.0); LYMPH % 24.4 % (24.0-44.0); MEAN CORPUSCULAR HEMOGLOBIN 31.2 pg (27.0-33.0); MEAN CORPUSCULAR HGB CONC 32.8 g/dl (32.0-36.5); MEAN CORPUSCULAR VOLUME 95.1 fl (80.0-96.0); MONO # 0.8 10^3/uL (0.0-0.8); MONO % 7.5 % (0.0-5.0); NEUTROPHILS % 65.7 % (36.0-66.0); PLATELET COUNT, AUTOMATED 408 10^3/uL (150-450); RED BLOOD COUNT 4.71 10^6/uL (4.00-5.40); WHITE BLOOD COUNT 10.6 10^3/uL (4.0-10.0)
[2020-05-23 13:47] LABS: ALBUMIN 3.5 GM/DL (3.2-5.2); ALT/SGPT 19 U/L (12-78); BILIRUBIN,TOTAL 0.4 MG/DL (0.2-1.0); BLOOD UREA NITROGEN 11 MG/DL (7-18); CALCIUM LEVEL 8.8 MG/DL (8.5-10.1); CARBON DIOXIDE LEVEL 25 MEQ/L (21-32); CHLORIDE LEVEL 107 MEQ/L (98-107); CHOLESTEROL LEVEL 155 MG/DL (<200); CHOLESTEROL RISK RATIO 4.189 (<5); CREATININE FOR GFR 0.72 MG/DL (0.55-1.30); GLOMERULAR FILTRATION RATE > 60.0 (>58); GLUCOSE, FASTING 108 MG/DL (70-100); HDL CHOLESTEROL 37 MG/DL (>40); LDL CHOLESTEROL 72 MG/DL (<100); NON-HDL-C 118 MG/DL; POTASSIUM SERUM 4.4 MEQ/L (3.5-5.1); SODIUM LEVEL 139 MEQ/L (136-145); TOTAL PROTEIN 6.9 GM/DL (6.4-8.2); TRIGLYCERIDES LEVEL 228 MG/DL (<150)
[2020-05-23 14:16] LABS: HEMOGLOBIN A1c 6.1 %
== END ==
LOC: M LAB REF 12:12
PROVIDERS: ATTEND Nurse Practitioner Family
DX: E66.9 Obesity, unspecified (principal); Z68.38 Body mass index [BMI] 38.0-38.9, adult

== ENCOUNTER → 2020-08-09 | Outpatient (CLI) | payer OTHER | LOC: M PLARAD 10:45 | PROVIDERS: ATTEND Orthopaedic Surgery | DX: M51.36 Other intervertebral disc degeneration, lumbar region (principal) ==

== ENCOUNTER → 2020-08-27 | Outpatient (CLI) | payer OTHER ==
--- NOTE | 2020-08-27 18:58 | REPVR ---
PROCEDURE INFORMATION: Exam: MR Lumbar Spine Without Contrast Exam date and time: 08/27/2020 6:28 PM Age: 45 years old Clinical indication: Low back pain; Additional info: Disc degeneration TECHNIQUE: Imaging protocol: Multiplanar magnetic resonance images of the lumbar spine without intravenous contrast. COMPARISON: CT Spine, lumbar w/o contrast 11/30/2017 6:30 PM FINDINGS: Vertebral body height and AP alignment is preserved. Negative for discitis/osteomyelitis. Conus medullaris terminates at T12-L1. No epidural fluid collection. Incidental note of Gladis at L2 measuring 2.1 cm. L1-L2: No central or foraminal stenosis. L2-L3: No central or foraminal stenosis. L3-L4: Mild disc bulge with superimposed right foraminal protrusion. There is oyjf-sa-nauhlbri bilateral facet joint arthropathy. No significant central canal stenosis. There is mild right foraminal stenosis. L4-L5: Mild bilateral facet joint arthropathy without significant central or foraminal stenosis. L5-S1: Sdkx-gw-qamasqrk bilateral facet joint arthropathy contributing to mild bilateral foraminal stenosis. No significant central canal stenosis. IMPRESSION: 1. No acute abnormality involving the lumbar spine. 2. Mild degenerative findings as above without significant central canal compromise. Electronically signed by: Jamel Callejas On 08/27/2020 18:58:08 PM
== END ==
LOC: M RAD 17:45
PROVIDERS: ATTEND Orthopaedic Surgery
DX: M51.36 Other intervertebral disc degeneration, lumbar region (principal)

== ENCOUNTER → 2020-10-02 | Outpatient (REF) | payer OTHER ==
[~2020-10-02] MED LIST changes: +BACTDSTA PO; +GABA-283; -GABA-845; -SULF1TAB93 PO
[2020-10-02 18:49] LABS: BASO # 0.1 10^3/uL (0.0-0.2); BASO % 0.7 % (0.0-1.0); EOS # 0.2 10^3/uL (0.0-0.5); EOS % 1.9 % (0.0-3.0); HEMATOCRIT 46.1 % (36.0-47.0); HEMOGLOBIN 15.1 g/dl (12.0-15.5); LYMPH % 26.7 % (24.0-44.0); MEAN CORPUSCULAR HEMOGLOBIN 31.9 pg (27.0-33.0); MEAN CORPUSCULAR HGB CONC 32.8 g/dl (32.0-36.5); MEAN CORPUSCULAR VOLUME 97.5 fl (80.0-96.0); MONO # 0.9 10^3/uL (0.0-0.8); MONO % 7.7 % (2.0-8.0); NEUTROPHILS # 7.1 10^3/uL (1.5-8.5); NEUTROPHILS % 62.6 % (36.0-66.0); PLATELET COUNT, AUTOMATED 459 10^3/uL (150-450); RED BLOOD COUNT 4.73 10^6/uL (4.00-5.40); WHITE BLOOD COUNT 11.3 10^3/uL (4.0-10.0)
[2020-10-02 18:59] LABS: HEMOGLOBIN A1c 6.1 %
[2020-10-02 19:15] LABS: ALBUMIN 3.5 GM/DL (3.2-5.2); ALT/SGPT 20 U/L (12-78); BILIRUBIN,TOTAL 0.3 MG/DL (0.2-1.0); BLOOD UREA NITROGEN 8 MG/DL (7-18); CALCIUM LEVEL 8.9 MG/DL (8.5-10.1); CARBON DIOXIDE LEVEL 26 MEQ/L (21-32); CHLORIDE LEVEL 107 MEQ/L (98-107); CHOLESTEROL LEVEL 144 MG/DL (<200); CHOLESTEROL RISK RATIO 4.114 (<5); CREATININE FOR GFR 0.67 MG/DL (0.55-1.30); GLOMERULAR FILTRATION RATE > 60.0 (>58); GLUCOSE, FASTING 119 MG/DL (70-100); HDL CHOLESTEROL 35 MG/DL (>40); LDL CHOLESTEROL 47 MG/DL (<100); NON-HDL-C 109 MG/DL; POTASSIUM SERUM 4.3 MEQ/L (3.5-5.1); SODIUM LEVEL 140 MEQ/L (136-145); TOTAL PROTEIN 7.2 GM/DL (6.4-8.2); TRIGLYCERIDES LEVEL 309 MG/DL (<150)
== END ==
LOC: M LAB REF 17:29
PROVIDERS: ATTEND Nurse Practitioner Family
DX: E66.9 Obesity, unspecified (principal); F17.200 Nicotine dependence, unspecified, uncomplicated

== ENCOUNTER 2021-03-01 17:47 | Emergency (ER) | payer OTHER ==
[~2021-03-01] VITALS: Ht 167.6 cm; Wt 120.9 kg
[~2021-03-01 17:47] MED LIST changes: -ASPE4PAD TOP; -ISOVUE-300 61% 50ML VIAL As Ordered ONE; -LIDOCAINE 1% MDV 20ML VIAL As Ordered ONE; -METH-1165 PO; -methylPREDNISolone SUSP 40MG/ML 1ML VIAL (DEPO MEDROL) As Ordered ONE
--- OUTSIDE RECORDS SUMMARY | 2021-03-01 17:56 | CCD | Continuity of Care Document ---
Author Author Nanda RAIN PA Organization Unknown Address [address] [facility] [place] [address] Phone [phone] Care Team Providers Care Corporate Health Consultant Name Role Phone Ada Camara MD AUTM [phone] Lo Hernandez AUTM [phone] Problems Description No Information Available Social History Type Date Description Comments Sex Unknown ETOH Use Denies alcohol use Tobacco Use Start: Unknown Patient is a current smoker, smo kes every day smokes half a pack a day Allergies, Adverse Reactions, Alerts Active Allergies Criticality Reaction | Severity Comments Date Latex Unable to assess criticality Rash From Gloves | Mild 10/09/2017 Penicillins Unable to assess criticality Swelling | Moderate 10/09/2017 Medications Active Medications SIG Qnty Indications Ordering Provide r Date Cyclobenzaprine HCL 5mg Tablets 2 by mouth twice a day 60tabs Matthew Bianchi MD 07/16/2020 Pregabalin 75mg Capsules take one capsule by mouth three times a day, maximum daily dose = 3 90caps M51.36 Vick Benoit MD 07/06/[address] Part 1 by mouth every morning 30caps M51.36 Vick Benoit MD 04/10/2020 Diclofenac Sodium 1% Gel apply 4 grams to the lumbar spine three times a day 100units Rene mitchell MD 06/08/2018 Nortriptyline HCL 10mg Capsules take 1-2 capsules by mouth at bedtime 30caps Vick Benoit MD 06/08/2018 Aspirin 81 Low Dose 81mg [place] Daily 30units Unknown 03/05/2016 Atorvastatin Calcium 80mg Tablets Daily Unknown Nitroglycerin 0.3mg Tablets Sub Unknown Duloxetine HCL 60mg Caps DR Part Unknown Immunizations Description No Information Available Vital Signs Date Vital Result Comment 01/29/2021 8:27am Body Temperature 96.9 F Height 66 inches 5'6" Weight 265.38 lb BMI (Body Mass Index) 42.8 kg/m2 05/15/2020 1:48pm Body Temperature 96.4 F Results Description No Information Available Procedures Date Code Description Status 01/29/2021 70024 X-Ray Hip Unilateral With Pelvis 2-3 Views Completed 01/29/2021 55585 Office/Outpatient Established Mo d MDM 30-39 Min Completed 01/18/2021 22490 Therapeutic Procedure, Each 15 M inutes Completed 01/14/2021 73153 Manual Therapy Each 15 Minutes C ompleted 01/14/2021 34491 Therapeutic Procedure, Each 15 M inutes Completed 01/11/2021 72050 Manual Therapy Each 15 Minutes C ompleted 01/11/2021 00568 Therapeutic Procedure, Each 15 M inutes Completed 01/09/2021 46889 Manual Therapy Each 15 Minutes C ompleted 01/09/2021 54228 Therapeutic Procedure, Each 15 M inutes Completed 01/04/2021 56423 Manual Therapy Each 15 Minutes C ompleted 01/04/2021 09882 Therapeutic Procedure, Each 15 M inutes Completed 01/01/2021 14627 Manual Therapy Each 15 Minutes C ompleted 01/01/2021 59453 Therapeutic Procedure, Each 15 M inutes Completed 12/27/2020 74601 Manual Therapy Each 15 Minutes C ompleted 12/27/2020 20766 Therapeutic Procedure, Each 15 M inutes Completed 12/24/2020 72996 Manual Therapy Each 15 Minutes C ompleted 12/24/2020 92237 Therapeutic Procedure, Each 15 M inutes Completed 12/19/2020 62620 Manual Therapy Each 15 Minutes C ompleted 12/19/2020 36401 Therapeutic Procedure, Each 15 M inutes Completed 12/12/2020 83345 Manual Therapy Each 15 Minutes C ompleted 12/12/2020 93398 Therapeutic Procedure, Each 15 M inutes Completed 12/10/2020 05467 Physical Therapy Eval - Low Comp lexity Completed 11/28/2020 73631 Office/Outpatient Established Lo w MDM 20-29 Min Completed 10/16/2020 99659 Office/Outpatient Established Mo d MDM 30-39 Min Completed 10/16/202085820 Inject/Drain Joint/Bursa Major C ompleted 09/17/2020 25272 Office/Outpatient Established SF MDM 10-19 Min Completed Medical Devices Description No Information Available Encounters Type Date Location Provider Dx Diagnosis Office Visit 01/29/2021 8:30a NICK Ruff M70.61 Trochanteric bursitis, right hip M51.36 Other intervertebral disc de generation, lumbar region M16.11 Unilateral primary osteoarth ritis, right hip Office Visit 11/28/2020 8:30a Tiffanie Whiteside PA-C M5 1.36 Other intervertebral disc degeneration, lumbar region M70.61 Trochanteric bursitis, right hip Office Visit 10/16/2020 8:45a Tiffanie Whiteside PA-C M5 1.36 Other intervertebral disc degeneration, lumbar region M70.61 Trochanteric bursitis, right hip Office Visit 09/17/2020 10:45a Tiffanie Whiteside PA-C M5 1.36 Other intervertebral disc degeneration, lumbar region M70.61 Trochanteric bursitis, right hip Assessments Date Code Description Provider 01/29/2021 M70.61 Trochanteric bursitis, right hip NICK Singh 01/29/2021 M51.36 Other intervertebral disc degene ration, lumbar region NICK Singh 01/29/2021 M16.11 Unilateral primary osteoarthriti s, right hip NICK Singh 01/18/2021 M51.36 Other intervertebral disc degene ration, lumbar region Shaed Winter P.T. 01/18/2021 M70.61 Trochanteric bursitis, right hip Shade Winter P.T. 01/14/2021 M51.36 Other intervertebral disc degene ration, lumbar region Agnieszka Myerse P.T.A. 01/14/2021 M70.61 Trochanteric bursitis, right hip Agnieszka Scee P.T.A. 01/11/2021 M51.36 Other intervertebral disc degene ration, lumbar region Danamarie Ortolano, PASTE THINNER 01/11/2021 M70.61 Trochanteric bursitis, right hip Danamarie Ortolano, PASTE THINNER 01/09/2021 M51.36 Other intervertebral disc degene ration, lumbar region Danamarie Ortolano, PASTE THINNER 01/09/2021 M70.61 Trochanteric bursitis, right hip Danamarie Ortolano, PASTE THINNER 01/04/2021 M51.36 Other intervertebral disc degene ration, lumbar region Agnieszka Scee P.T.A. 01/04/2021 M70.61 Trochanteric bursitis, right hip Agnieszka Scee P.T.A. 01/01/2021 M51.36 Other intervertebral disc degene ration, lumbar region Danamarie Ortolano, PASTE THINNER 01/01/2021 M70.61 Trochanteric bursitis, right hip Danamarie Ortolano, PASTE THINNER 12/27/2020 M51.36 Other intervertebral disc degene ration, lumbar region Shade Flora Winter P.T. 12/27/2020 M70.61 Trochanteric bursitis, right hip Shade Winter P.T. 12/24/2020 M51.36 Other intervertebral disc degene ration, lumbar region Shade Flora Winter P.T. 12/24/2020 M70.61 Trochanteric bursitis, right hip Sahde Winter P.T. 12/19/2020 M51.36 Other intervertebral disc degene ration, lumbar region Roxanna Lea Watkins, PASTE THINNER 12/19/2020 M70.61 Trochanteric bursitis, right hip Roxanna Watkins, PASTE THINNER 12/12/2020 M51.36 Other intervertebral disc degene ration, lumbar region Agnieszka Scee P.T.A. 12/12/2020 M70.61 Trochanteric bursitis, right hip Agnieszka Scee P.T.A. 12/10/2020 M51.36 Other intervertebral disc degene ration, lumbar region Shade CarsonMary Winter P.T. 12/10/2020 M70.61 Trochanteric bursitis, right hip Shade Winter P.T. 11/28/2020 M51.36 Other intervertebral disc degene ration, lumbar region Alexis Whiteside PA-C 11/28/2020 M70.61 Trochanteric bursitis, right hip Alexis Whiteside PA-C 10/16/2020 M51.36 Other intervertebral disc degene ration, lumbar region Alexis Whiteside PA-C 10/16/2020 M70.61 Trochanteric bursitis, right hip Alexis Whiteside PA-C 09/17/2020 M51.36 Other intervertebral disc degene ration, lumbar region Alexis Whiteside PA-C 09/17/2020 M70.61 Trochanteric bursitis, right hip Alexis Whiteside PA-C Plan of Treatment 01/29/2021 - NICK Singh* M70.61 Trochanteric bursitis, right hip* Follow up:* after rt hip inj with IID * M51.36 Other intervertebral disc degeneration, lumbar region * M16.11 Unilateral primary osteoarthritis, right hip Functional Status Description No Information Available Mental Status Description No Information Available Referrals Refer to Dr Reason for Referral Status Appt Date Alexis Whiteside PA-C FLUORO INJ NO AUTH REQUIRED PER MODESTA Ramírez FOR FLUOROSCOPIC INJECTION TO RIGHT HIP ([id number], [id number]) TO HILDA NoeMary DG Created [address] [place] [address] [phone] Alexis Whiteside PA-C PT - 10 VISITS OK'D FOR LS/R HIP FROM 12/10-03/10/21, AUTH# [id number], RES# [id number]. SS Created [address] [place] [address] [phone] Alexis Whiteside PA-C Physical Therapy Right Hip,p atient allowed eval then needs auth to PT dept, patient is going to [facility], passed to PT dept sw. Created [address] [place] [address] [phone]
--- OUTSIDE RECORDS SUMMARY | 2021-03-01 17:56 | CCD | Continuity of Care Document ---
Author Author Nanda SOTO P.A.-C. Organization Unknown Address [address] [place] [address] Phone [phone] Care Team Providers Care Aluminum Boat Inspector Name Role Phone Lo Hernandez AUTM [phone] Problems Active Problems Provider Date Chronic low back pain Juan Solo M.D. Onset: 11/30/2017 Lumbosacral radiculopathy Juan Solo M.D. Onset: 018 Social History Type Date Description Comments Sex Unknown Tobacco Use Start: Unknown Patient is a current smoker, smo kes every day Allergies and adverse reactions Active Allergies Criticality Reaction | Severity Comments Date Penicillin Unable to assess criticality 11/30/2017 Medications Active Medications SIG Qnty Indications Ordering Provide r Date Cpap Mask And Supplies g47.33 1units Beryl Solo M.D. 07/18/2019 Immunizations Description No Information Available Vital Signs Date Vital Result Comment 02/05/2021 6:16am BP Systolic 118 mmHg BP Diastolic 80 mmHg Heart Rate 116 /min Respiratory Rate 20 /min 09/20/2020 8:48am BP Systolic 120 mmHg BP Diastolic 80 mmHg Heart Rate 76 /min Respiratory Rate 16 /min Results Description No Information Available Procedures Date Code Description Status 02/05/2021 23262 Office/Outpatient Established Mo d MDM 30-39 Min Completed 09/20/2020 68220 Office/Outpatient Established Mo d MDM 30-39 Min Completed Medical Devices Description No Information Available Encounters Type Date Location Provider Dx Diagnosis Office Visit 02/05/2021 11:45a Main office - [facility] Neva nesbitt P.A.-C. G47.33 Obstructive sleep apnea (adult) (pediatr ic) R26.81 Unsteadiness on feet M79.604 Pain in right leg R20.2 Paresthesia of skin M54.50 Low back pain, unspecified M47.897 Other spondylosis, lumbosacr al region R00.0 Tachycardia, unspecified Office Visit 09/20/2020 2:30p Main office - [place] Neva nesbitt, P.A.-C. M54.5 Low back pain M47.897 Other spondylosis, lumbosacr al region M79.604 Pain in right leg R20.2 Paresthesia of skin R26.81 Unsteadiness on feet G47.33 Obstructive sleep apnea (roxana lt) (pediatric) Assessments Date Code Description Provider 02/05/2021 G47.33 Obstructive sleep apnea (adult) (pediatric) Neva Soto P.A.-C. 02/05/2021 R26.81 Unsteadiness on feet Neva abreu P.A.-C. 02/05/2021 M79.604 Pain in right leg Neva luevano P.A.-C. 02/05/2021 R20.2 Paresthesia of skin Neva nesbitt P.A.-C. 02/05/2021 M54.50 Low back pain, unspecified Neva Soto, P.A.-C. 02/05/2021 M47.897 Other spondylosis, lumbosacral r egion Neva Soto P.A.-C. 02/05/2021 R00.0 Tachycardia, unspecified Neva Soto, P.A.-C. 09/20/2020 M54.5 Low back pain Neva Soto P.A.-C. 09/20/2020 M47.897 Other spondylosis, lumbosacral r egion Neva Soto P.A.-C. 09/20/2020 M79.604 Pain in right leg Neva luevano P.A.-C. 09/20/2020 R20.2 Paresthesia of skin Neva nesbitt P.A.-C. 09/20/2020 R26.81 Unsteadiness on feet Neva abreu P.A.-C. 09/20/2020 G47.33 Obstructive sleep apnea (adult) (pediatric) Neva Soto P.A.-C. Plan of Treatment Future Appointment(s):* 05/07/2021 9:00 am - Neva Soto P.A.-C. at Main office - [place] 02/05/2021 - Neva Soto P.A.-C.* G47.33 Obstructive sleep apnea (adult) (pediatric)* Comments:* Continue CPAP. * R26.81 Unsteadiness on feet* Comments:* Continue use of cane or walker. * M79.604 Pain in right leg* Comments:* Follow up at [facility] or orthopedics. * R20.2 Paresthesia of skin* Comments:* She continues pregabalin, nortriptyline and Cymbalta. Her heart rate is elevated today, which may be related to Cymbalta or nortriptyline. She will contact her prescribing provider. * M54.50 Low back pain, unspecified* Comments:* Follow up at [facility]. * M47.897 Other spondylosis, lumbosacral region * R00.0 Tachycardia, unspecified* Comments:* Her heart rate is elevated today. She states that it was 120 recently at her PCP's office. This may be related to Cymbalta or nortriptyline. She will contact her prescribing provider. I also advised her to contact her surveillance technician for assessment. A copy of this office note will go to her surveillance technician as well. * Follow up:* 3 months Functional Status Description No Information Available Mental Status Description No Information Available Referrals Refer to Reason for Referral Status Appt Date Anam Esquivel M.D. LOW BACK PAIN Created 0 [facility] [id number] [place] [id number] [phone]
--- OUTSIDE RECORDS SUMMARY | 2021-03-01 17:56 | CCD | Continuity of Care Document ---
Author Author Nanda DENIS PA-C Organization Unknown Address [id number] [place] [address], [facility] [place] [address] Phone [phone] Care Team Providers Care Outpatient Facility Physical Therapist Name Role Phone Jeanmarie Fleming MD [facility] [phone] Beryl Solo MD [facility] [phone] Karoline Messer INTERMISSION COORDINATOR AUT[facility] [phone] oL Hernandez INTERMISSION COORDINATOR AUT[facility] [phone] Neva Soto AUTM [phone] Problems Active Problems Provider Date Coronary arteriosclerosis Katie Denis PA-C Onset: 2018 Old myocardial infarction Katie Deins PA-C Onset: 2018 Electrocardiogram abnormal Katie Denis PA-C Onset: 10/01 Mixed hyperlipidemia Katie eDnis PA-C Onset: 10/01/2018 Dietary management surveillance Katie Denis PA-C Onset: 10/01/2018 Nicotine dependence, cigarettes, with other nicotine-i nduced disorders Katie Denis PA-C Onset: 10/01/2018 Social History Type Date Description Comments Sex Unknown ETOH Use Rarely consumes alcohol Tobacco Use Start: Unknown Patient is a current smoker, smo kes every day Started smoking at age 17. Currently smoking <1/2ppd Smoking Status Reviewed: 02/06/21 Patient is a current smoker, smokes every day Started smoking at age 17. Currently smoking <1/2ppd Exercise Type/Frequency Does housework sporadica lly Exercise Type/Frequency Walks sporadically Exercise Type/Frequency Restricted: ambu latory, work of a light or sedentary nature Exercise Limitations Back Pain Allergies and adverse reactions Active Allergies Criticality Reaction | Severity Comments Date Penicillin Unable to assess criticality facial swell ing 02/02/2018 Medications Active Medications SIG Qnty Indications Ordering Provide r Date Pregabalin 75mg Capsules 1 by mouth three times daily mdd=3 Unknown 02/05/2021 Voltaren 1% Gel as needed Unknown 02/05/2021 Nicoderm CQ 7mg/24HR Patches 24HR apply one patch daily Lo Hernandez FNP 02/06/20 21 Nitrostat 0.4mg Tablets Sub 1 sl every 5min x3 as needed for chest pain 25tabs I25.10 Handy Croft MD 10/01/2018 Nortriptyline HCL 10mg Capsules 1 by mouth twice daily Unknown 09/30/[address] Part 1 by mouth twice every day Unknown 09/30/2018 Atorvastatin Calcium 80mg Tablets 1 by mouth every night at bedtime 90tabs Handy Croft MD 02/01/2018 Aspir-[address] 1 by mouth every day Unknown 02/01/2018 Acetaminophen 500mg Tablets 1-2 by mouth every 6 hours as needed Unknown 02/02/20 18 Immunizations Description No Information Available Vital Signs Date Vital Result Comment 02/06/2021 1:45pm Weight 261.00 lb Height 65.50 inches 5'5.50" BMI (Body Mass Index) 42.8 kg/m2 Heart Rate 100 /min Regular Respiratory Rate 16 /min BP Systolic Right Arm 118 mmHg sitting, large cuf f BP Diastolic Right Arm 68 mmHg sitting, large cu ff BP Systolic Left Arm 112 mmHg sitting BP Diastolic Left Arm 64 mmHg sitting 10/08/2020 8:57am Weight 265.00 lb Height 65.50 inches 5'5.50" BMI (Body Mass Index) 43.4 kg/m2 Heart Rate 96 /min Regular Respiratory Rate 16 /min BP Systolic Right Arm 114 mmHg sitting, large cuf f BP Diastolic Right Arm 64 mmHg sitting, large cu ff BP Systolic Left Arm 112 mmHg sitting BP Diastolic Left Arm 60 mmHg sitting Results Test Acquired Date Facility Test Result H/L Range Note CMP 10/02/2020 [facility] - Albumin Serum/Plasma 3.5 Alt - SGPT 20 Calcium Ser/Plasma Mass/Vol 8.9 Carbon Dioxide Ser/Plasm 26 Chloride Serum/Plasma 107 Alkaline Phosphatase 131 Potassium 4.3 Protein Total 7.2 Sodium 140 Ast - Sgot 10 BUN - Urea Nitrogen 8 Glucose 119 High 70-100 Creatinine For GFR 0.67 Lipid Profile/Cardiac Risk Pro 10/02/2020 [facility])- - Triglycerides 309 Cholesterol 144 <200 HDL 35 Low >40 LDL Cholesterol 47 Chol/HDL Ratio 4.114 Hemoglobin A1c 10/02/2020 [facility])- - Hemoglobin A1c 6.1 Procedures Date Code Description Status 02/06/2021 68193 Smoking & Tobacco Ce ssation Counseling Visit Intermediate 3-10Min Completed 02/06/2021 79625 Office/Outpatient Established Mo d MDM 30-39 Min Completed 02/06/2021 28075 ECG 12-Lead Completed 10/08/2020 80507 Smoking & Tobacco Ce ssation Counseling Visit Intermediate 3-10Min Completed 10/08/2020 95858 Office/Outpatient Established Mo d MDM 30-39 Min Completed 10/08/2020 54941 ECG 12-Lead Completed Medical Devices Description No Information Available Encounters Type Date Location Provider Dx Diagnosis Office Visit 02/06/2021 2:00p Main Office Katie Denis PA-C I25.1 0 [place] heart disease [place] coronary artery w/o ang pctrs I25.2 Old myocardial infarction R94.31 Abnormal electrocardiogram [ ECG] [EKG] E78.2 Mixed hyperlipidemia G47.33 Obstructive sleep apnea (roxana lt) (pediatric) F17.218 Nicotine dependence, cigaret maryellen, w oth disorders Z87.891 Personal history of nicotine dependence Z71.3 Dietary counseling and surve illance Z71.6 Tobacco abuse counseling Office Visit 10/08/2020 8:45a Main Office Katie Denis PA-C I25.1 0 [place]scl heart disease [place] coronary artery w/o ang pctrs I25.2 Old myocardial infarction R94.31 Abnormal electrocardiogram [ ECG] [EKG] E78.2 Mixed hyperlipidemia G47.33 Obstructive sleep apnea (roxana lt) (pediatric) F17.218 Nicotine dependence, cigaret maryellen, w oth disorders Z87.891 Personal history of nicotine dependence Z71.3 Dietary counseling and surve illance Z71.6 Tobacco abuse counseling Assessments Date Code Description Provider 02/06/2021 I25.10 Atherosclerotic heart disease [place] coronary artery with Katiepatrica Durontrinow, PA-C 02/06/2021 I25.2 Old myocardial infarction Katiepatrica Méndezw, PA-C 02/06/2021 R94.31 Abnormal electrocardiogram [ECG] [EKG] Katie Méndezw, PA-C 02/06/2021 E78.2 Mixed hyperlipidemia Katiepatrica Jauregui now, PA-C 02/06/2021 G47.33 Obstructive sleep apnea (adult) (pediatric) Katie Durontrinow, PA-C 02/06/2021 F17.218 Nicotine dependence, cigarettes, with other nicotine-induced Katiepatrica Méndezw, PA-C 02/06/2021 Z87.891 Personal history of nicotine dep endence Katie Méndezw, PA-C 02/06/2021 Z71.3 Dietary counseling and surveilla nce Katie Patrica Víctor, PA-C 02/06/2021 Z71.6 Tobacco abuse counseling Katie Patrica Víctor, PA-C 10/08/2020 I25.10 Atherosclerotic heart disease [place] coronary artery with Katie Duronenow, PA-C 10/08/2020 I25.2 Old myocardial infarction Katie Durontrinow, PA-C 10/08/2020 R94.31 Abnormal electrocardiogram [ECG] [EKG] Katie Méndezw, PA-C 10/08/2020 E78.2 Mixed hyperlipidemia Katie Jauregui now, PA-C 10/08/2020 G47.33 Obstructive sleep apnea (adult) (pediatric) Katie Méndezw, PA-C 10/08/2020 F17.218 Nicotine dependence, cigarettes, with other nicotine-induced Katie Méndezw, PA-C 10/08/2020 Z87.891 Personal history of nicotine dep endence Katie Denis, PA-C 10/08/2020 Z71.3 Dietary counseling and surveilla nce Katie Denis, PA-C 10/08/2020 Z71.6 Tobacco abuse counseling ISABELLE HugginsC Plan of Treatment Future Appointment(s):* 08/08/2021 8:45 am - Katie Denis PA-C at Main Office 02/06/2021 - Katie Denis PA-C* I25.10 Atherosclerotic heart disease [place] coronary artery with * I25.2 Old myocardial infarction * R94.31 Abnormal electrocardiogram [ECG] [EKG] * E78.2 Mixed hyperlipidemia * G47.33 Obstructive sleep apnea (adult) (pediatric) * F17.218 Nicotine dependence, cigarettes, with other nicotine-induced* Recommendations:* Smoke cessation is crucial. * Z87.891 Personal history of nicotine dependence * Z71.3 Dietary counseling and surveillance* Recommendations:* Follow a low fat/low cholesterol diet and do as much aerobic exercise as you can tolerate. * Z71.6 Tobacco abuse counseling * All * Follow up:* 6 month follow up. Functional Status Functional Condition Comment Date Status Independent with all ADL's Activ e Requires assistance with ambulating with cane or rolling walker on occasion Active Mental Status Description No Information Available Referrals Description No Information Available
--- OUTSIDE RECORDS SUMMARY | 2021-03-01 17:56 | CCD ---
Author Organization Unknown Address [address] [place] [address] Phone [phone] Care Team Providers Care Chief Clerk Name Role Phone [facility] 212 [phone] [facility] 2 [phone] [facility] 2 [phone] [facility] 2 [phone] Allergies Code Code System Name Reaction Severity Status Onset Penicillin Active 3 Penicillins Facial Swelling Mild to Moderate Activ e Notes: PCN - Reaction: facial swelling Some allergies listed in Documents: #[id number], #[id number], #[id number] could not be added to this patient's chart. Please review these documents and add these allergies to the patient's chart manually as needed. Medications Name Status Start Date Stop Date atorvastatin 80 mg tablet TAKE ONE TABLET BY MOUTH DAILY Active Not avai lable cyclobenzaprine 5 mg tablet TAKE TWO TABLETS BY MOUTH TWICE A DAY Completed 0 10/10/2020 duloxetine 20 mg capsule,delayed release TAKE TWO CAPSULES BY MOUTH EVERY MORNING Completed 10/10/2020 duloxetine 60 mg capsule,delayed release Active Not available gabapentin 400 mg capsule Completed 2019 gabapentin 800 mg tablet Completed 020 ibuprofen 800 mg tablet Completed 03/01/20 metformin 500 mg tablet Take 1 tablet twice a day by oral route. Completed 11/22/2020 nicotine 21 mg/24 hr daily transdermal p atch APPLY 1 PATCH TOPICALLY ONCE DAILY DIRECTED Active Not available nitrofurantoin monohydrate/macrocrystals 100 mg capsule TAKE ONE CAPSULE BY MOUTH TWICE A DAY FOR 7 DAYS Active Not available nitroglycerin 0.[address] ONE TABLET UNDER THE TONGUE EVERY 5 MINUTES FOR UP TO 3 DOSES NEEDED FOR CHEST PAIN Active Not available nortriptyline 10 mg capsule TAKE 1 TO 2 CAPSULES BY MOUTH ONCE DAILY AT BEDTIME Active Not available phenazopyridine 200 mg tablet TAKE ONE TABLET BY MOUTH THREE TIMES A DAY FOR 2 DAYS Active Not available pregabalin 50 mg capsule Completed 020 pregabalin 75 mg capsule Active Not elis ilable sulfamethoxazole 800 mg-trimethoprim 160 mg tablet TAKE ONE TABLET BY MOUTH EVERY 12 HOURS Active Not available Problems Name Status Onset Date Source Vitamin D Deficiency Active 05/17/2012 History Simple Obesity Active 10/08/2016 History Body Mass Index 30+ - Obesity Active 10/08/2016 Hi story Nicotine Dependence Active 10/08/2016 History Hypertensive Disorder Active 10/08/2016 History Endocrine/metabolic Screening Active 10/08/2016 Hi story Exposure to Second Hand Tobacco Smoke Active 10/08/2016 History Procedure by Method Active 10/08/2016 History Clinical Finding Active 10/08/2016 History Disorder of Abdomen Active 10/08/2016 History Impacted Cerumen of Bilateral Ears Active 10/08/2016 History Tobacco Use and Exposure - Finding Active 10/27/2016 History Ear and Auditory Finding Active 10/27/2016 History Pain Active 01/07/2017 History 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 History Distal Colitis Active 08/11/2017 History HIV Screening Active 08/11/2017 History Screening for Disorder Active 08/11/2017 History Evaluation Procedure Active 08/11/2017 History Inflammatory Disorder of Digestive Tract Active 018 History Breast Neoplasm Screening Status Active 08/11/2017 History Pyrexia of Unknown Origin Active 08/24/2017 Histor y Dysthymia Active 08/27/2017 History Lumbosacral Radiculopathy Active 11/09/2017 Histor y Chest Pain Active 01/22/2018 History Obstructive Sleep Apnea Syndrome Active 05/20/2018 History Irritable Bowel Syndrome with Diarrhea Active 9 History [place] Syndrome Active 08/12/2018 History Umbilical Hernia Active 09/03/2018 History Hyperglycemia Active 12/28/2018 History Left Upper Quadrant Pain Active 12/07/2019 History Hyperlipidemia Active 12/03/2020 Prediabetes Active 12/03/2020 Patient Asked to Attend Active 12/03/2020 Nicotine Dependence with Current Use Active 12/03/2020 Decreased Hearing Active 01/07/2021 Chronic Low Back Pain Active 01/07/2021 Body Mass Index 40+ - Severely Obese Active 01/07/2021 Screening Mammography of Bilateral Breasts Active 01/07 Notes: Some problems listed in Documents : #[id number], #[id number], #[id number] could not be added to this patient's chart. Please review these documents and add these problems to the patient's chart manually as needed. Procedures Date Name Performed by 05/04/2008 Cardiac Catheterization Information not available 05/04/2004 Section Information not avai lable 05/04/2001 Cholecystectomy Information not avai lable Injection of Cortisone Information not a vailable Hernia Repair Information not avai lable Total Abdominal Hysterectomy with Bilate ral Salpingo-oophorectomy Information not available 01/03/2021 MAMMO, Screening, Digital, Bilateral [facility] [address] [place] [address] (Work Place) Results Lab Results Date Name Specimen Result Interpretation Description Value Range Status Address 01/23/2021 Urinalysis, Dipstick, Auto Normal Bilirubin ne g Final [facility]: [address] [facility] ABNORMAL Blood 3+ Final [facility]: [address] [facility] Normal Glucose neg Final [facility]: [address] [facility] Normal Ketone neg Final [facility]: [address] [facility] ABNORMAL Leukocytes 3+ Final [facility]: [address] [facility] Normal Nitrite neg Final [facility]: [address] [facility] Normal Ph 6.0 Final [facility]: [address] [facility] ABNORMAL Protein 1+ Final [facility]: [address] [facility] Normal Specific [place] 1.020 Final [facility]: [address] [facility] Normal Urobilinogen 0.2 Final [facility]: [address] [facility] 10/02/2020 CBC W/ Auto Diff Blood venous High White Blood C ount 11.3 10 4.0-10.[address] [facility]: [address] 0 [facility] Blood venous Normal Red Blood Count 4.73 10 4.00- 5.[address] [facility]: [address] [facility] Blood venous Normal Hemoglobin 15.1 g/dL 12.0-15. 5 g/dL [facility]: [address] [facility] Blood venous Normal Hematocrit 46.1 % 36.0-47.0 % [facility]: [address] [place] [address] Blood venous High Mean Corpuscular Volume 97.5 fL 80.0-96.[address] [facility]: [address] [place] [address] Blood venous Normal Mean Corpuscular Hemoglob in 31.9 pg 27.0-33.[address] [facility]: [address] [place] [address] Blood venous Normal Mean Corpuscular HGB Conc 32.8 g/dL 32.0-36.5 g/dL [facility]: [address] [place] [address] Blood venous Normal Red Cell Distribution Wid th 13.5 % 11.5-14.5 % [facility]: [address] [place] [address] Blood venous High Platelet Count, Automated 459 10 150-[address] [facility]: [address] [place] [address] Blood venous Normal Neutrophils % 62.6 % 36.0-66. 0 % [facility]: [address] [place] [address] Blood venous Normal Lymph % 26.7 % 24.0-44.0 % [facility]: [address] [place] [address] Blood venous Normal [place] % 7.7 % 2.0-8.0 % [facility]: [address] [place] [address] Blood venous Normal Eos % 1.9 % 0.0-3.0 % [facility]: [address] [place] [address] Blood venous Normal Baso % 0.7 % 0.0-1.0 % [facility]: [address] [place] [address] Blood venous Normal Immature Granulocyte % 0.4 % 0-3.0 % [facility]: [address] [place] [address] Blood venous Normal Nucleated Red Blood Cell % 0. 0 % 0-0 % [facility]: [address] [place] [address] Blood venous Normal Neutrophils # 7.1 10 1.5-8.[address] [facility]: [address] [place] [address] Blood venous Normal Lymph # 3.0 10 1.5-5.0 10 [facility]: [address] [place] [address] Blood venous High [place] # 0.9 10 0.0-0.8 10 [facility]: [address] [place] [address] Blood venous Normal Eos # 0.2 10 0.0-0.[address] [facility]: [address] [place] [address] Blood venous Normal Baso # 0.1 10 0.0-0.2 10 [facility]: [address] [place] [address] 10/02/2020 HbA1C (Hemoglobin a1C), Blood Blood venous Normal Hemoglobin a1C 6.1 % [facility]: [address] [place] [address] Blood venous High Estimated Average Glucose 128 mg/dL 60-110 mg/dL [facility]: [address] [place] [address] 10/02/2020 CMP, Serum or Plasma Blood venous High Glu cose, Fasting 119 mg/dL 70-100 mg/dL [facility]: [address] [place] [address] Blood venous Normal Blood Urea Nitrogen 8 mg/dL 7 -18 mg/dL [facility]: [address] [place] [address] Blood venous Normal Creatinine for GFR 0.67 mg/dL 0.55-1.30 mg/dL [facility]: [address] [place] [address] Blood venous Normal Glomerular Filtration Rate > 60.0 >58 [facility]: [address] [place] [address] Blood venous Normal Sodium Level 140 mEq/L 136-14 5 mEq/L [facility]: [address] [place] [address] Blood venous Normal Potassium Serum 4.3 mEq/L 3.5 -5.1 mEq/L [facility]: [address] [place] [address] Blood venous Normal Chloride Level 107 mEq/L 98-1 07 mEq/L [facility]: [address] [place] [address] Blood venous Normal Carbon Dioxide Level 26 mEq/L 21-32 mEq/L [facility]: [address] [place] [address] Blood venous Low Anion Gap 7 mEq/L 8-16 mEq/L [facility]: [address] [place] [address] Blood venous Normal Calcium Level 8.9 mg/dL 8.5-1 0.1 mg/dL [facility]: [address] [facility] Blood venous Normal AST/SGOT 10 U/L 7-37 U/L Marilyn l [facility]: [address] [facility] Blood venous Normal ALT/SGPT 20 U/L 12-78 U/L [facility]: [address] [facility] Blood venous High Alkaline Phosphatase 131 U/L 45-117 U/L [facility]: [address] [facility] Blood venous Normal Bilirubin,total 0.3 mg/dL 0.2 -1.0 mg/dL [facility]: 0 [facility] Blood venous Normal Total Protein 7.2 gm/dL 6.4-8 .2 gm/dL [facility]: [address] [place] [address] Blood venous Normal Albumin 3.5 gm/dL 3.2-5.2 gm/ dL [facility]: [address] [place] [address] Blood venous Low Albumin/globulin Ratio 0.9 1.2-2.2 [facility]: [address] [place] [address] 10/02/2020 Lipid Panel, Blood Blood venous High Trigl ycerides Level 309 mg/dL <150 mg/dL [facility]: [address] [facility] Blood venous Normal Cholesterol Level 144 mg/dL < 200 mg/dL [facility]: [address] [place] [address] Blood venous Low HDL Cholesterol 35 mg/dL >40 mg/dL [facility]: [address] [place] [address] Blood venous Normal LDL Cholesterol 47 mg/dL <100 mg/dL [facility]: [address] [place] [address] Blood venous Normal Non-hdl-c 109 mg/dL [facility]: [address] [facility] Blood venous Normal Cholesterol Risk Ratio 4.[address] <5 [facility]: [address] [place] [address] 08/20/2020 SARS CoV 2 RdRp Gene, QL Probe, Respiratory Spec imen Nasopharyngeal Normal Sars-cov-2 negative negative Final [facility]: [address] [facility] 05/23/2020 CBC W/ Auto Diff Blood venous High White Blood C ount 10.6 10 4.0-10.[address] [facility]: 83 0 [facility] Blood venous Normal Red Blood Count 4.71 10 4.00- 5.[address] [facility]: [address] [facility] Blood venous Normal Hemoglobin 14.7 g/dL 12.0-15. 5 g/dL [facility]: [address] [facility] Blood venous Normal Hematocrit 44.8 % 36.0-47.0 % [facility]: [address] [facility] Blood venous Normal Mean Corpuscular Volume 95.1 fL 80.0-96.[address] [facility]: [address] [place] [address] Blood venous Normal Mean Corpuscular Hemoglob in 31.2 pg 27.0-33.[address] [facility]: [address] [facility] Blood venous Normal Mean Corpuscular HGB Conc 32.8 g/dL 32.0-36.5 g/dL [facility]: [address] [facility] Blood venous Normal Red Cell Distribution Wid th 13.4 % 11.5-14.5 % [facility]: [address] [facility] Blood venous Normal Platelet Count, Automated 408 10 150-[address] [facility]: [address] [facility] Blood venous Normal Neutrophils % 65.7 % 36.0-66. 0 % [facility]: [address] [facility] Blood venous Normal Lymph % 24.4 % 24.0-44.0 % Fi [facility]: [address] [facility] Blood venous High [place] % 7.5 % 0.0-5.0 % [facility]: 0 [facility] Blood venous Normal Eos % 1.4 % 0.0-3.0 % [facility]: [address] [facility] Blood venous Normal Baso % 0.5 % 0.0-1.0 % [facility]: [address] [place] [address] Blood venous Normal Immature Granulocyte % 0.5 % 0-3.0 % [facility]: [address] [place] [address] Blood venous Normal Nucleated Red Blood Cell % 0. 0 % 0-0 % [facility]: [address] [place] [address] Blood venous Normal Neutrophils # 7.0 10 1.5-8.[address] [facility]: [address] [place] [address] Blood venous Normal Lymph # 2.6 10 1.5-5.0 10 [facility]: [address] [place] [address] Blood venous Normal [place] # 0.8 10 0.0-0.8 10 [facility]: [address] [place] [address] Blood venous Normal Eos # 0.2 10 0.0-0.[address] [facility]: [address] [place] [address] Blood venous Normal Baso # 0.1 10 0.0-0.2 10 [facility]: [address] [place] [address] 05/23/2020 CMP, Serum or Plasma Blood capillary High Glucose, Fasting 108 mg/dL 70-100 mg/dL [facility]: [address] [place] [address] Blood capillary Normal Blood Urea Nitrogen 11 mg/ dL 7-18 mg/dL [facility]: [address] [place] [address] Blood capillary Normal Creatinine for GFR 0. 72 mg/dL 0.55-1.30 mg/dL [facility]: [address] [place] [address] Blood capillary Normal Glomerular Filtration Rate > 60.[address] >58 [facility]: [address] [place] [address] Blood capillary Normal Sodium Level 139 mEq/L 136 -145 mEq/L [facility]: [address] [place] [address] Blood capillary Normal Potassium Serum 4.4 mEq/L 3.5-5.1 mEq/L [facility]: [address] [place] [address] Blood capillary Normal Chloride Level 107 mEq/L 9 8-107 mEq/L [facility]: [address] [place] [address] Blood capillary Normal Carbon Dioxide Level 25 mE q/L 21-32 mEq/L [facility]: [address] [facility] Blood capillary Low Anion Gap 7 mEq/L 8-16 mEq /L [facility]: 830 [facility] Blood capillary Normal Calcium Level 8.8 mg/dL 8. 5-10.1 mg/dL [facility]: 8[address] [facility] Blood capillary Normal AST/SGOT 9 U/L 7-37 U/L F inal [facility]: [address] [facility] Blood capillary Normal ALT/SGPT 19 U/L 12-78 U/L [facility]: 8[address] [facility] Blood capillary High Alkaline Phosphatase 118 U /L 45-117 U/L [facility]: 0 [facility] Blood capillary Normal Bilirubin,total 0.4 mg/dL 0.2-1.0 mg/dL [facility]: [address] [facility] Blood capillary Normal Total Protein 6.9 gm/dL 6. 4-8.2 gm/dL [facility]: 0 [facility] Blood capillary Normal Albumin 3.5 gm/dL 3.2-5.2 gm/dL [facility]: [address] [place] [address] Blood capillary Low Albumin/globulin Ratio 1.0 1.2-2.2 [facility]: [address] [place] [address] 05/23/2020 Lipid Panel, Blood Blood venous High Trigl ycerides Level 228 mg/dL <150 mg/dL [facility]: [address] [facility] Blood venous Normal Cholesterol Level 155 mg/dL < 200 mg/dL [facility]: 0 [facility] Blood venous Low HDL Cholesterol 37 mg/dL >40 mg/dL [facility]: 0 [facility] Blood venous Normal LDL Cholesterol 72 mg/dL <100 mg/dL [facility]: [address] [facility] Blood venous Normal Non-hdl-c 118 mg/dL Fi [facility]: [address] [facility] Blood venous Normal Cholesterol Risk Ratio 4.[address] <5 [facility]: [address] [facility] 05/23/2020 HbA1C (Hemoglobin a1C), Blood Blood venous Normal Hemoglobin a1C 6.1 % [facility]: [address] [place] [address] Blood venous High Estimated Average Glucose 128 mg/dL 60-110 mg/dL [facility]: [address] [place] [address] 05/03/2020 SARS CoV 2 RdRp Gene, QL Probe, Respiratory Spec imen Nasopharyngeal Normal Sars-cov-2 negative negative Final [facility]: [address] [facility] 02/23/2020 CBC W/ Auto Diff High White Blood Count 10.6 10 4.0-10.[address] [facility]: 0 [facility] Normal Red Blood Count 4.79 10 4.00-5.[address] [facility]: [address] [place] [address] Normal Hemoglobin 14.9 g/dL 12.0-15.5 g/dL [facility]: 0 [facility] Normal Hematocrit 46.0 % 36.0-47.0 % [facility]: [address] [place] [address] Normal Mean Corpuscular Volume 96.0 fL 80.0 -96.[address] [facility]: [address] [place] [address] Normal Mean Corpuscular Hemoglobin 31.1 pg 27.0-33.[address] [facility]: [address] [place] [address] Normal Mean Corpuscular HGB Conc 32.4 g/dL 32.0-36.5 g/dL [facility]: 0 [facility] Normal Red Cell Distribution Width 13.7 % 1 1.5-14.5 % [facility]: 0 [facility] Normal Platelet Count, Automated 390 10 150 -[address] [facility]: 0 [facility] Normal Neutrophils % 62.1 % 36.0-66.0 % [facility]: [address] [facility] Normal Lymph % 27.1 % 24.0-44.0 % [facility]: [address] [facility] High [place] % 7.5 % 0.0-5.0 % [facility]: [address] [facility] Normal Eos % 2.1 % 0.0-3.0 % [facility]: [address] [facility] Normal Baso % 0.6 % 0.0-1.0 % [facility]: [address] [facility] Normal Immature Granulocyte % 0.6 % 0-3.0 % [facility]: 8[address] [facility] Normal Nucleated Red Blood Cell % 0.0 % 0- 0 % [facility]: [address] [facility] Normal Neutrophils # 6.6 10 1.5-8.5 10 Marilyn [facility]: [address] [facility] Normal Lymph # 2.9 10 1.5-5.0 10 [facility]: [address] [facility] Normal [place] # 0.8 10 0.0-0.[address] [facility]: [address] [facility] Normal Eos # 0.2 10 0.0-0.5 10 [facility]: [address] [facility] Normal Baso # 0.1 10 0.0-0.[address] [facility]: 8[address] [facility] 02/23/2020 CMP, Serum or Plasma Normal Glucose, Fastin g 96 mg/dL 70-100 mg/dL [facility]: 83 0 [facility] Normal Blood Urea Nitrogen 11 mg/dL 7-18 mg /dL [facility]: 8[address] [facility] Normal Creatinine for GFR 0.74 mg/dL 0.55-1 .30 mg/dL [facility]: 0 [facility] Normal Glomerular Filtration Rate > 60.0 >[address] [facility]: 8[address] [facility] Normal Sodium Level 140 mEq/L 136-145 mEq/L [facility]: 830 [facility] Normal Potassium Serum 4.5 mEq/L 3.5-5.1 mE q/L [facility]: [address] [facility] High Chloride Level 108 mEq/L 98-107 mEq/ L [facility]: [address] [facility] Normal Carbon Dioxide Level 24 mEq/L 21-32 mEq/L [facility]: [address] [facility] Normal Anion Gap 8 mEq/L 8-16 mEq/L [facility]: 8[address] [facility] Normal Calcium Level 9.0 mg/dL 8.5-10.1 mg/ dL [facility]: 8[address] [facility] Normal AST/SGOT 9 U/L 7-37 U/L [facility]: 8[address] [facility] Normal ALT/SGPT 20 U/L 12-78 U/L [facility]: [address] [facility] High Alkaline Phosphatase 128 U/L 45-117 U/L [facility]: [address] [facility] Normal Bilirubin,total 0.4 mg/dL 0.2-1.0 mg /dL [facility]: [address] [facility] Normal Total Protein 7.0 gm/dL 6.4-8.2 gm/d L [facility]: [address] [facility] Normal Albumin 3.5 gm/dL 3.2-5.2 gm/dL Marilyn l [facility]: [address] [facility] Low Albumin/globulin Ratio 1.0 1.2-2. 2 [facility]: 8[address] [facility] 02/23/2020 Lipid Panel, Blood High Triglycerides Lev el 197 mg/dL <150 mg/dL [facility]: 83 0 [facility] Normal Cholesterol Level 150 mg/dL <200 mg/ dL [facility]: [address] [facility] Low HDL Cholesterol 34 mg/dL >40 mg/dL F inal [facility]: [address] [facility] Normal LDL Cholesterol 77 mg/dL <100 mg/dL [facility]: 8[address] [facility] Normal Non-hdl-c 116 mg/dL Final [facility]: [address] [facility] Normal Cholesterol Risk Ratio 4.411 <5 Final [facility]: [address] [facility] 02/23/2020 Vitamin D, 25-Hydroxy, Total, Serum Low Total 25(Oh) Vitamin D 27.8 NG/mL 30.0-100.0 NG/mL Final [facility]ter: [address] [facility] 02/23/2020 HbA1C (Hemoglobin a1C), Blood Normal Hemogl obin a1C 6.0 % Final [facility]: [address] [facility] High Estimated Average Glucose 126 mg/dL 60-110 mg/dL Final [facility]: [address] [facility] Lipid Panel, Serum Cholesterol, Total tnp Final [facility]: [address] [facility] HDL Cholesterol tnp Final [facility]: [address] [facility] Triglycerides tnp Final [facility]: [address] [facility] LDL-cholesterol tnp Final [facility]: [address] [facility] Chol/hdlc Ratio tnp Final [facility]: [address] [facility] Non HDL Cholesterol tnp Fi nal [facility]: [address] [facility] Urinalysis Complete, Reflex Culture Normal Color y ellow yellow Final [facility]: [address] [facility] ABNORMAL Appearance cloudy clear Final [facility]: [address] [place] [facility] System Normal Specific [place] 1.015 1.001-1.035 Final [facility]: [address] [facility] Normal Ph 6.0 5.0-8.0 Final [facility]: [address] [facility] Normal Glucose negative negative Final Que st [facility]: [address] [facility] Normal Bilirubin negative negative Final [facility]: [address] [facility] Normal Ketones negative negative Final Que st [facility]: [address] [facility] ABNORMAL Occult Blood 2+ negative Final [facility] [address] [facility] Protein 1+ negative Final [facility]: [address] [place] Normal Nitrite negative negative Final [facility]: [address] [place] ABNORMAL Leukocyte Esterase 3+ negative Final [facility]: [address] [place] ABNORMAL Wbc > or = 60 /hpf < or = 5 /hpf Final [facility]: [address] [place] ABNORMAL Rbc 3-10 /hpf < or = 2 /hpf Final [facility]: [address] [facility] Squamous Epithelial Cells 0-5 /hpf < or = 5 /hpf Final [facility]: [address] [place] ABNORMAL Bacteria few /hpf none seen /hpf F inal [facility]: [address] [place] Normal Amorphous Sediment few /hpf none or few /hpf Final [facility]: [address] [place] Normal Hyaline Cast none seen /lpf none see n /lpf Final [facility]: [address] [facility] Culture, Urine Reflexive Urine Culture Final [facility]: [address] [facility] TSH, Serum or Plasma TSH W/reflex to FT4 tn p Final [facility]: [address] [facility] Culture, Urine ABNORMAL Culture, Urine, Routine se e note [facility]: [address] [place] Past Encounters 02/22/[address]: [address] [place] [address], Ph. 01/23/2021 Dysuria; Body Mass Index 30+ - Obesity; Hyperglycemia Jeanmarie Fleming MD: [address] [place] [address], Ph. 01/03/2021 Body Mass Index 40+ - Severely Obese; Hypertensive Disorder; Chronic Low Back Pain; Screening Mammography of Bilateral Breasts; Decreased Hearing; Prediabetes; Patient Asked to Attend REGULO Hanson: [address] [place] [address], Ph. 12/11/2020 Elevated Blood-pressure Reading without Diagnosis of Hypertension; Counseling Kevin Us, RPA-C: [address] [facility], [address] [address], Ph. 11/29/2020 Nicotine Dependence with Current Use; Patient Asked to Attend; Hyperlipidemia; Prediabetes [facility]: [address] [place] [address], Ph. 11/22/2020 Elevated Blood-pressure Reading without Diagnosis of Hypertension; Severe Obesity; Body Mass Index 40+ - Severely Obese; Nicotine Dependence with Current Use [facility]: [address] [place] [address], Ph. 10/10/2020 Nicotine Dependence with Current Use; Patient Asked to Attend; Obesity [facility]: [address] [place] [address], Ph. 10/02/2020 [facility]: [address] [place] [address], Ph. 08/20/2020 Exposure to SARS-CoV-2 Jeanmarie Fleming MD: [address] [place] [address], Ph. 05/31/2020 Nicotine Dependence with Current Use; Obesity; Prediabetes; Patient Asked to Attend [facility]: [address] [place] [address], Ph. 05/23/2020 Hyperlipidemia [facility]: [address] [place] [address], Ph. 05/03/2020 Exposure to SARS-CoV-2 Jeanmarie Fleming MD: [address] [place] [address], Ph. 03/01/2020 Patient Asked to Attend; Mixed Hyperlipidemia; Hypertensive Disorder; Lumbosacral Radiculopathy; Nicotine Dependence [facility]: [address] [place] [address], Ph. Social History Tobacco Smoking Status Heavy Tobacco Smoker (1/2 pack per a day) Vaccine List Vaccine Type COVID-19, mRNA, LNP-S, PF, 30 mcg/0.3 mL dose 12/25/2020 01/15/2021 Notes: Pt declined flu shot Plan of Care Patient Goals Goal # 1: Over the next two months, incr ease fluid intake using Allison to 3-4 cups per day. Goal # 2: Over the next two months, choose convenience foods that are low in sodium, high in protein (10+grams per serving), and contain fruit or vegetable for each dinner meal. Patient Instructions Lab results reviewed and discussed with you today. Please continue medications as prescribed. Please try to maintain good nutrition, adequate rest, adequate physical activities and adequate intake of water daily. We have made a referral for you today, We will contact you to set this up. Lab results reviewed and discussed with you today. Please continue medications as prescribed. Please try to maintain good nutrition, adequate rest and adequate physical activities and adequate intake of water daily. Lab results reviewed and discussed with you today. Please continue medications as prescribed. Please try to maintain good nutrition, adequate rest and adequate physical activities and adequate intake of water daily. Lab results reviewed and discussed with you today. Please continue medications as prescribed. Please try to maintain good nutrition, adequate rest, adequate physical activities and adequate intake of water daily. Lab results reviewed and discussed with you today. Please continue medications as prescribed. Please try to maintain good nutrition, adequate rest, adequate physical activities and adequate intake of water daily. Reminders Provider Appointments None recorded. Lab None recorded. Referral None recorded. Procedures None recorded. Surgeries None recorded. Imaging None recorded. Vitals 01/23/2021 11:20AM ESTABLISHED [id number] Height Weight BMI Blood Pressure 66 in 270 lbs 43.6 kg/m2 (1) 141/93 mm[H g] (2) 126/83 mm[Hg] 01/03/2021 03:40PM ESTABLISHED [id number] Height Weight BMI Blood Pressure 66 in 265 lbs 16 oz 42.9 kg/m2 129/87 mm[Hg] 12/11/2020 12:00PM SAME DAY 20 Height Weight BMI Blood Pressure 66 in 261 lbs 9.6 oz 42.2 kg/m2 (1) 136/82 m m[Hg] (2) 130/80 mm[Hg] 11/29/2020 09:20AM TELEHEALTH 20 Height 66 in 11/22/2020 11:40AM ESTABLISHED [id number] Height Weight BMI Blood Pressure 66 in 271 lbs 4 oz 43.8 kg/m2 121/80 mm[Hg] 10/10/2020 09:40AM TELEHEALTH 20 Height 66 in 10/02/2020 11:00AM NURSE LAB COLLECTION Height 66 in 05/31/2020 11:00AM ESTABLISHED [id number] Height Weight BMI Blood Pressure 66 in 258 lbs 16 oz 41.8 kg/m2 132/87 mm[Hg] 03/01/2020 11:20AM ESTABLISHED [id number] Height Weight BMI Blood Pressure 66 in 244 lbs 6 oz 39.4 kg/m2 107/72 mm[Hg] 12/07/2019 Height Weight BMI Blood Pressure 66 in 242 lbs 3.04 oz 39.23 kg/m2 126/87 mm[H g] 03/29/2019 Height Weight BMI Blood Pressure 66 in 254 lbs 8 oz 41.23 kg/m2 112/78 mm[Hg] 12/28/2018 Height Weight BMI Blood Pressure 66 in 253 lbs 6.08 oz 41.04 kg/m2 122/85 mm[H g] 11/29/2018 Height Weight BMI Blood Pressure 66 in 256 lbs 41.47 kg/m2 131/82 mm[Hg] 09/29/2018 Height Weight BMI Blood Pressure 66 in 254 lbs 3.04 oz 41.18 kg/m2 127/92 mm[H g] 09/03/2018 Height Weight BMI Blood Pressure 66 in 258 lbs 41.79 kg/m2 129/85 mm[Hg] 08/12/2018 Height Weight BMI Blood Pressure 66 in 256 lbs 4 oz 41.51 kg/m2 138/88 mm[Hg] 07/12/2018 Height Weight BMI Blood Pressure 66 in 260 lbs 42.12 kg/m2 172/96 mm[Hg] 05/20/2018 Height Weight BMI Blood Pressure 66 in 254 lbs 41.14 kg/m2 119/87 mm[Hg]
--- OUTSIDE RECORDS SUMMARY | 2021-03-01 17:56 | CCD | Continuity of Care Document ---
Author Author Nanda DENIS PA-C Organization Unknown Address [address] [place] [address], [place] [address] Phone [phone] Care Team Providers Care Sales Associate Name Role Phone Jeanmarie Fleming MD AUTM [phone] Beryl Solo MD AUTM [phone] Karoline Messer MARKETING CONTENT MANAGER AUTM [phone] Lo Hernandez MARKETING CONTENT MANAGER AUTM [phone] Neva Soto AUTM [phone] Problems Active Problems Provider Date Coronary arteriosclerosis Katie Denis PA-C Onset: 2018 Old myocardial infarction Ktaie Denis PA-C Onset: 2018 Electrocardiogram abnormal Katie Denis PA-C Onset: 10/01 Mixed hyperlipidemia Katie Denis PA-C Onset: 10/01/2018 Dietary management surveillance Katie [...] 6.1 Procedures Date Code Description Status 02/06/2021 54426 Smoking & Tobacco Ce ssation Counseling Visit Intermediate 3-10Min Completed 02/06/2021 17443 Office/Outpatient Established Mo d MDM 30-39 Min Completed 02/06/2021 89606 ECG 12-Lead Completed 10/08/2020 93094 Smoking & Tobacco Ce ssation Counseling Visit Intermediate 3-10Min Completed 10/08/2020 73125 Office/Outpatient Established Mo d MDM 30-39 Min Completed 10/08/2020 19312 ECG 12-Lead Completed Medical Devices Description No Information Available Encounters Type Date Location Provider Dx Diagnosis Office Visit 02/06/2021 2:00p Main Office Katie Denis PA-C I25.1 0 [place]scl heart disease [place] coronary artery w/o ang pctrs I25.2 Old myocardial infarction R94.31 Abnormal electrocardiogram [ ECG] [EKG] E78.2 Mixed hyperlipidemia G47.33 Obstructive sleep apnea (roxana lt) (pediatric) F17.218 Nicotine dependence, cigaret maryellen, w oth disorders Z71.3 Dietary counseling and surve illance Office Visit 10/08/2020 8:45a Main Office Katie Denis PA-C I25.1 0 Athscl heart disease of [place] coronary artery w/o ang pctrs I25.2 Old myocardial infarction R94.31 Abnormal electrocardiogram [ ECG] [EKG] E78.2 Mixed hyperlipidemia G47.33 Obstructive sleep apnea (roxana lt) (pediatric) F17.218 Nicotine dependence, cigaret maryellen, w oth disorders Z87.891 Personal history of nicotine dependence Z71.3 Dietary counseling and surve illance Z71.6 Tobacco abuse counseling Assessments Date Code Description Provider 02/06/2021 I25.10 Atherosclerotic heart disease of [place] coronary artery with Katie Denis PA-C 02/06/2021 I25.2 Old myocardial infarction Katie E Honeyw, PA-C 02/06/2021 R94.31 Abnormal electrocardiogram [ECG] [EKG] Katie E Honeyw, PA-C 02/06/2021 E78.2 Mixed hyperlipidemia Katie Jauregui now, PA-C 02/06/2021 G47.33 Obstructive sleep apnea (adult) (pediatric) Katie Denis, PA-C 02/06/2021 F17.218 Nicotine dependence, cigarettes, with other nicotine-induced Katie Méndezw, PA-C 02/06/2021 Z71.3 Dietary counseling and surveilla nce Katie Méndezw, PA-C 10/08/2020 I25.10 Atherosclerotic heart disease of [place] coronary artery with Katie Méndezw, PA-C 10/08/2020 I25.2 Old myocardial infarction Katie Patrica Víctor, PA-C 10/08/2020 R94.31 Abnormal electrocardiogram [ECG] [EKG] Katie Denis, PA-C 10/08/2020 E78.2 Mixed hyperlipidemia Katie Patrica Juventino now, PA-C 10/08/2020 G47.33 Obstructive sleep apnea (adult) (pediatric) Katie Denis, PA-C 10/08/2020 F17.218 Nicotine dependence, cigarettes, with other nicotine-induced Katie Méndezw, PA-C 10/08/2020 Z87.891 Personal history of nicotine dep endence Katie Denis, PA-C 10/08/2020 Z71.3 Dietary counseling and surveilla nce Katie Denis, PA-C 10/08/2020 Z71.6 Tobacco abuse counseling Katie Denis PA-C Plan of Treatment Future Appointment(s):* 08/08/2021 8:45 am - Katie Denis PA-C at Main Office 02/06/2021 - Katie Denis PA-C* I25.10 Atherosclerotic heart disease of [place] coronary artery with * I25.2 Old myocardial infarction * R94.31 Abnormal electrocardiogram [ECG] [EKG] * E78.2 Mixed hyperlipidemia * G47.33 Obstructive sleep apnea (adult) (pediatric) * F17.218 Nicotine dependence, cigarettes, with other nicotine-induced* Recommendations:* Smoke cessation is crucial. * Z71.3 Dietary counseling and surveillance* Recommendations:* Follow a low fat/low cholesterol diet and do as much aerobic exercise as you can tolerate. * All * Follow up:* 6 month follow up. Functional Status Functional Condition Comment Date Status Independent with all ADL's Activ e Requires assistance with ambulating with cane or rolling walker on occasion Active Mental Status Description No Information Available Referrals Description No Information Available
--- OUTSIDE RECORDS SUMMARY | 2021-03-01 17:57 | CCD | Continuity of Care Document ---
Author Author Nanda WINTER P.T. Organization Unknown Address [address] [place] [address] [address] [place] [address] Phone [phone] Care Team Providers Care Security Installer Name Role Phone Ada Camara MD AUTM Lo Hernandez AUTM Problems Description No Information Available Social History [...] Matthew Bianchi MD 07/16/2020 Pregabalin 75mg Capsules Take One Capsule By Mouth Three Times A Day, Maximum Daily Dose = 3 90caps M51.36 Eugenia Dutton MD 07/06/[address] Part [...] Daily Unknown Nitroglycerin 0.3mg Tablets Sub Unknown Immunizations Description No Information Available Vital Signs Date Vital Result Comment 05/15/2020 1:48pm Body Temperature 96.4 F 04/10/2020 11:26am Body Temperature 97.5 F Results Description No Information Available Procedures Date Code Description Status 01/14/2021 90116 Therapeutic Procedure, Each 15 M inutes Completed 01/14/2021 92986 Manual Therapy Each 15 Minutes C ompleted 01/11/2021 80425 Manual Therapy Each 15 Minutes C ompleted 01/11/2021 27370 Therapeutic Procedure, Each 15 M inutes Completed 01/09/2021 11215 Manual Therapy Each 15 Minutes C ompleted 01/09/2021 89653 Therapeutic Procedure, Each 15 M inutes Completed 01/04/2021 80458 Manual Therapy Each 15 Minutes C ompleted 01/04/2021 72719 Therapeutic Procedure, Each 15 M inutes Completed 01/01/2021 12567 Manual Therapy Each 15 Minutes C ompleted 01/01/2021 01054 Therapeutic Procedure, Each 15 M inutes Completed 12/27/2020 88200 Therapeutic Procedure, Each 15 M inutes Completed 12/27/2020 83650 Manual Therapy Each 15 Minutes C ompleted 12/24/2020 91766 Manual Therapy Each 15 Minutes C ompleted 12/24/2020 35442 Therapeutic Procedure, Each 15 M inutes Completed 12/19/2020 92660 Manual Therapy Each 15 Minutes C ompleted 12/19/2020 08739 Therapeutic Procedure, Each 15 M inutes Completed 12/12/2020 50084 Manual Therapy Each 15 Minutes C ompleted 12/12/2020 45989 Therapeutic Procedure, Each 15 M inutes Completed 12/10/2020 83000 Physical Therapy Eval - Low Comp lexity Completed 11/28/2020 31822 Office/Outpatient Established Lo w MDM 20-29 Min Completed 10/16/2020 10769 Office/Outpatient Established Mo d MDM 30-39 Min Completed 10/16/2020 Inject/Drain Joint/Bursa Major C ompleted 09/17/2020 59723 Office/Outpatient Established SF MDM 10-19 Min Completed Medical Devices Description No Information Available Encounters Type Date Location Provider Dx Diagnosis Office Visit 11/28/2020 8:30a Tiffanie Whiteside PA-C M5 1.36 Other intervertebral disc degeneration, lumbar region M70.61 Trochanteric bursitis, right hip Office Visit 10/16/2020 8:45a Tiffanie hWiteside PA-C M5 1.36 Other intervertebral disc degeneration, lumbar region M70.61 Trochanteric bursitis, right hip Office Visit 09/17/2020 10:45a Tiffanie Whiteside PA-C M5 1.36 Other intervertebral disc degeneration, lumbar region M70.61 Trochanteric bursitis, right hip Assessments Date Code Description Provider 01/14/2021 M51.36 Other intervertebral disc degene ration, lumbar region Agnieszka Scee P.T.A. 01/14/2021 M70.61 Trochanteric bursitis, right hip Agnieszka Scee P.T.A. 01/11/2021 M51.36 Other intervertebral disc degene ration, lumbar region Danamarie Ortolano, SPIKEMAKING SUPERVISOR 01/11/2021 M70.61 Trochanteric bursitis, right hip Danamarie Ortolano, SPIKEMAKING SUPERVISOR 01/09/2021 M51.36 Other intervertebral disc degene ration, lumbar region Danamarie Ortolano, SPIKEMAKING SUPERVISOR 01/09/2021 M70.61 Trochanteric bursitis, right hip Danamarie Ortolano, SPIKEMAKING SUPERVISOR 01/04/2021 M51.36 Other intervertebral disc degene ration, lumbar region Agnieszka Scee P.T.A. 01/04/2021 M70.61 Trochanteric bursitis, right hip Agnieszka Scee P.T.A. 01/01/2021 M51.36 Other intervertebral disc degene ration, lumbar region Danamarie Ortolano, SPIKEMAKING SUPERVISOR 01/01/2021 M70.61 Trochanteric bursitis, right hip Danamarie Ortolano, SPIKEMAKING SUPERVISOR 12/27/2020 M51.36 Other intervertebral disc degene ration, lumbar region Shade Winter P.T. 12/27/2020 M70.61 Trochanteric bursitis, right hip Shade Winter P.T. 12/24/2020 M51.36 Other intervertebral disc degene ration, lumbar region Shade Hines Moy P.T. 12/24/2020 M70.61 Trochanteric bursitis, right hip Shade Hines Moy P.T. 12/19/2020 M51.36 Other intervertebral disc degene ration, lumbar region Roxanna Watkins, SPIKEMAKING SUPERVISOR 12/19/2020 M70.61 Trochanteric bursitis, right hip Roxanna Watkins, SPIKEMAKING SUPERVISOR 12/12/2020 M51.36 Other intervertebral disc degene ration, lumbar region Agnieszka Scee P.T.A. 12/12/2020 M70.61 Trochanteric bursitis, right hip Agnieszka Scee P.T.A. 12/10/2020 M51.36 Other intervertebral disc degene ration, lumbar region Shade Hines Moy P.T. 12/10/2020 M70.61 Trochanteric bursitis, right hip Shade Hines Moy P.T. 11/28/2020 M51.36 Other intervertebral disc degene [...] hip Alexis Whiteside PA-C Plan of Treatment Future Appointment(s):* 01/29/2021 8:30 am - NICK Singh at [place] Functional Status Description No Information Available Mental Status Description No Information Available Referrals Refer to Dr Reason for Referral Status Appt Date Alexis Whiteside PA-C PT - 10 VISITS OK'D FOR LS/R HIP FROM 12/10-03/10/21, AUTH# [id number], RES# [id number]. SS Created [facility] [place] [address] [phone] Alexis Whiteside, PA-C Physical Therapy Right Hip,p atient allowed eval then needs auth to PT dept, patient is going to [facility], passed to PT dept sw. Created [address] [place], [place] [id number] [place] [address] [phone] Matthew Bianchi MD MRI APPROVED PER [employer] FOR MRI OF L SPINE (80973) TO SERGEY JAUREGUI Created [address] [place] [address], [address] [place] [address] [phone]"
--- OUTSIDE RECORDS SUMMARY | 2021-03-01 17:57 | CCD | Continuity of Care Document ---
Author Author Nanda ROSALES Organization Unknown Address [address] [place] [address] [address] [place] [address] Phone [phone] Care Team Providers Care Rolling Up Machine Operator Name Role Phone Ada Camara MD AUTM [...] lumbar spine three times a day 100units Reen mitchell MD 06/08/2018 Nortriptyline HCL 10mg Capsules [...] Available Procedures Date Code Description Status 01/14/2021 19763 Therapeutic Procedure, Each 15 M inutes Completed 01/14/2021 85918 Manual Therapy Each 15 Minutes C ompleted 01/11/2021 79478 Manual Therapy Each 15 Minutes C ompleted 01/11/2021 07668 Therapeutic Procedure, Each 15 M inutes Completed 01/09/2021 95397 Manual Therapy Each 15 Minutes C ompleted 01/09/2021 90303 Therapeutic Procedure, Each 15 M inutes Completed 01/04/2021 36029 Manual Therapy Each 15 Minutes C ompleted 01/04/2021 03610 Therapeutic Procedure, Each 15 M inutes Completed 01/01/2021 90438 Manual Therapy Each 15 Minutes C ompleted 01/01/2021 87336 Therapeutic Procedure, Each 15 M inutes Completed 12/27/2020 14224 Therapeutic Procedure, Each 15 M inutes Completed 12/27/2020 43868 Manual Therapy Each 15 Minutes C ompleted 12/24/2020 84681 Manual Therapy Each 15 Minutes C ompleted 12/24/2020 58500 Therapeutic Procedure, Each 15 M inutes Completed 12/19/2020 45532 Manual Therapy Each 15 Minutes C ompleted 12/19/2020 04259 Therapeutic Procedure, Each 15 M inutes Completed 12/12/2020 69330 Manual Therapy Each 15 Minutes C ompleted 12/12/2020 96829 Therapeutic Procedure, Each 15 M inutes Completed 12/10/2020 65140 Physical Therapy Eval - Low Comp lexity Completed 11/28/2020 73447 Office/Outpatient Established Lo w MDM 20-29 Min Completed 10/16/2020 68359 Office/Outpatient Established Mo d MDM 30-39 Min Completed 10/16/202096590 Inject/Drain Joint/Bursa Major C ompleted 09/17/2020 83159 Office/Outpatient Established SF MDM 10-19 Min Completed [...] P.T.A. 01/14/2021 M70.61 Trochanteric bursitis, right hip Agineszka Scee P.T.A. 01/11/2021 M51.36 Other intervertebral disc degene ration, lumbar region Danamarie Ortolano, SUPERVISOR [employer]PER[employer] 01/11/2021 M70.61 Trochanteric bursitis, right hip Danamarie Ortolano, SUPERVISOR [employer]PER[employer] 01/09/2021 M51.36 Other intervertebral disc degene ration, lumbar region Danamarie Ortolano, SUPERVISOR [employer] 01/09/2021 M70.61 Trochanteric bursitis, right hip Danamarie Ortolano, SUPERVISOR [employer] 01/04/2021 M51.36 Other intervertebral disc degene ration, lumbar region Agnieszka Scee P.T.A. 01/04/2021 M70.61 Trochanteric bursitis, right hip Agnieszka Scee P.T.A. 01/01/2021 M51.36 Other intervertebral disc degene ration, lumbar region Danamarie Ortolano, SUPERVISOR [employer] 01/01/2021 M70.61 Trochanteric bursitis, right hip Danamarie Ortolano, SUPERVISOR [employer] 12/27/2020 M51.36 Other intervertebral disc degene ration, lumbar region Shade Winter P.T. 12/27/2020 M70.61 Trochanteric bursitis, right hip Shade Winter P.T. 12/24/2020 M51.36 Other intervertebral disc degene ration, lumbar region Shade Winter P.T. 12/24/2020 M70.61 Trochanteric bursitis, right hip Shade JMary Winter P.T. 12/19/2020 M51.36 Other intervertebral disc degene ration, lumbar region Roxanna Watkins, SUPERVISOR [employer]PER[employer] 12/19/2020 M70.61 Trochanteric bursitis, right hip Roxanna Watkins, SUPERVISOR [employer] 12/12/2020 M51.36 Other intervertebral disc degene ration, lumbar region Agnieszka Rosales P.T.A. 12/12/2020 M70.61 Trochanteric bursitis, right hip Agnieszka Scee P.T.A. 12/10/2020 M51.36 Other intervertebral disc degene ration, lumbar region Shade Marmolejo.T. 12/10/2020 M70.61 Trochanteric bursitis, right hip Shade [...] Whiteside PA-C Plan of Treatment Future Appointment(s):* 01/18/2021 8:30 am - Shade Winter P.T. at Physical Therapy * 01/29/2021 8:30 am - NICK Singh at [place] Functional Status Description No Information Available Mental Status Description No Information Available Referrals Refer to Dr Reason for Referral Status Appt Date Alexis Whiteside PA-C PT - 10 VISITS OK'D FOR LS/R HIP FROM 12/10-03/10/21, AUTH# [id number], RES# [id number]. SS Created [facility] [address] [place] [address] [phone] Alexis Whiteside, PAAnaliC Physical Therapy Right Hip,p atient allowed eval then needs auth to PT dept, [place] [facility] passed to PT dept sw. Created [address] [place] [address] [phone] Matthew Bianchi MD MRI APPROVED PER [employer] FOR MRI OF L SPINE (50767) TO SERGEY JAUREGUI Created [address] [place] [address], [address] [place] [address] [phone]"
--- OUTSIDE RECORDS SUMMARY | 2021-03-01 17:57 | CCD | Continuity of Care Document ---
Author Author Nanda WINTER P.T. Organization Unknown Address [address] [place] [address] [address] [place] [address] Phone [phone] Care Team Providers Care Nylon Winder Name Role Phone Ada Camara MD AUTM [...] Information Available Procedures Date Code Description Status 01/18/2021 67511 Therapeutic Procedure, Each 15 M inutes Completed 01/14/2021 27966 Manual Therapy Each 15 Minutes C ompleted 01/14/2021 48057 Therapeutic Procedure, Each 15 M inutes Completed 01/11/2021 04060 Manual Therapy Each 15 Minutes C ompleted 01/11/2021 65032 Therapeutic Procedure, Each 15 M inutes Completed 01/09/2021 06555 Manual Therapy Each 15 Minutes C ompleted 01/09/2021 10711 Therapeutic Procedure, Each 15 M inutes Completed 01/04/2021 07439 Manual Therapy Each 15 Minutes C ompleted 01/04/2021 40857 Therapeutic Procedure, Each 15 M inutes Completed 01/01/2021 59277 Manual Therapy Each 15 Minutes C ompleted 01/01/2021 59092 Therapeutic Procedure, Each 15 M inutes Completed 12/27/2020 04648 Therapeutic Procedure, Each 15 M inutes Completed 12/27/2020 02373 Manual Therapy Each 15 Minutes C ompleted 12/24/2020 45468 Manual Therapy Each 15 Minutes C ompleted 12/24/2020 74958 Therapeutic Procedure, Each 15 M inutes Completed 12/19/2020 86905 Manual Therapy Each 15 Minutes C ompleted 12/19/2020 79717 Therapeutic Procedure, Each 15 M inutes Completed 12/12/2020 12252 Manual Therapy Each 15 Minutes C ompleted 12/12/2020 84251 Therapeutic Procedure, Each 15 M inutes Completed 12/10/2020 76220 Physical Therapy Eval - Low Comp lexity Completed 11/28/2020 34169 Office/Outpatient Established Lo w MDM 20-29 Min Completed 10/16/2020 48039 Office/Outpatient Established Mo d MDM 30-39 Min Completed 10/16/202092738 Inject/Drain Joint/Bursa Major C ompleted 09/17/2020 11016 Office/Outpatient Established SF MDM 10-19 Min Completed [...] right hip Assessments Date Code Description Provider 01/18/2021 M51.36 Other intervertebral disc degene ration, lumbar region Shade Winter P.T. 01/18/2021 M70.61 Trochanteric bursitis, right hip Shade Winter P.T. 01/14/2021 M51.36 Other intervertebral disc degene ration, lumbar region Agnieszka Scee P.T.A. 01/14/2021 M70.61 Trochanteric bursitis, right hip Agnieszka Scee P.T.A. 01/11/2021 M51.36 Other intervertebral disc degene ration, lumbar region Danamarie Ortolano, SHIP UNLOADER 01/11/2021 M70.61 Trochanteric bursitis, right hip Danamarie Ortolano, SHIP UNLOADER 01/09/2021 M51.36 Other intervertebral disc degene ration, lumbar region Danamarie Ortolano, SHIP UNLOADER 01/09/2021 M70.61 Trochanteric bursitis, right hip Danamarie Ortolano, SHIP UNLOADER 01/04/2021 M51.36 Other intervertebral disc degene ration, lumbar region Agnieszka Scee P.T.A. 01/04/2021 M70.61 Trochanteric bursitis, right hip Agnieszka Scee P.T.A. 01/01/2021 M51.36 Other intervertebral disc degene ration, lumbar region Danamarie Ortolano, SHIP UNLOADER 01/01/2021 M70.61 Trochanteric bursitis, right hip Danamarie Ortolano, SHIP UNLOADER 12/27/2020 M51.36 Other intervertebral disc degene ration, lumbar region Shade Hines Moy P.T. 12/27/2020 M70.61 Trochanteric bursitis, right hip Shade Hines Moy P.T. 12/24/2020 M51.36 Other intervertebral disc degene ration, lumbar region Shade Hines Moy P.T. 12/24/2020 M70.61 Trochanteric bursitis, right hip Shade Hines Moy P.T. 12/19/2020 M51.36 Other intervertebral disc degene ration, lumbar region Roxanna Watkins, SHIP UNLOADER 12/19/2020 M70.61 Trochanteric bursitis, right hip Roxanna Watkins, SHIP UNLOADER 12/12/2020 M51.36 Other intervertebral disc degene ration, lumbar region Agnieszka Luciae P.T.A. 12/12/2020 M70.61 Trochanteric bursitis, right hip [...] 01/29/2021 8:30 am - NICK Singh at [place] Functional Status Description No Information Available Mental Status Description No Information Available Referrals Refer to Reason for Referral Status Appt Date Alexis Whiteside PA-C PT - 10 VISITS OK'D FOR LS/R HIP FROM 12/10-03/10/21, AUTH# [id number], RES# [id number]. SS Created [address] [facility] [address] [place] [address] [phone] Alexis Whiteside PA-C Physical Therapy Right Hip,p atient allowed eval then needs auth to PT dept, patient is going to [facility], passed to PT dept sw. Created [address] [place] [address] [address] [place] [address] [phone] Matthew Bianchi MD MRI APPROVED PER ARVIND CAMPOS FOR MRI OF L SPINE (89110) TO SERGEY JAUREGUI Created [facility], [address] [place] [id number] [phone]"
--- OUTSIDE RECORDS SUMMARY | 2021-03-01 17:57 | CCD | Continuity of Care Document ---
Author Author Nanda BATISTA PA Organization Unknown Address [address] [facility] [place] [address] Phone [phone] Care Team Providers Care Submarine Cable Equipment Technician Name Role Phone Ada Camara MD AUTM [...] 1 by mouth every morning 30caps M51.36 Vikc Benoit MD 04/10/2020 Diclofenac Sodium 1% Gel [...] Available Procedures Date Code Description Status 01/29/2021 91536 X-Ray Hip Unilateral With Pelvis 2-3 Views Completed 01/18/2021 35397 Therapeutic Procedure, Each 15 M inutes Completed 01/14/2021 06669 Manual Therapy Each 15 Minutes C ompleted 01/14/2021 60140 Therapeutic Procedure, Each 15 M inutes Completed 01/11/2021 58372 Manual Therapy Each 15 Minutes C ompleted 01/11/2021 46377 Therapeutic Procedure, Each 15 M inutes Completed 01/09/2021 29873 Manual Therapy Each 15 Minutes C ompleted 01/09/2021 03716 Therapeutic Procedure, Each 15 M inutes Completed 01/04/2021 51268 Manual Therapy Each 15 Minutes C ompleted 01/04/2021 22202 Therapeutic Procedure, Each 15 M inutes Completed 01/01/2021 39573 Manual Therapy Each 15 Minutes C ompleted 01/01/2021 36802 Therapeutic Procedure, Each 15 M inutes Completed 12/27/2020 09349 Manual Therapy Each 15 Minutes C ompleted 12/27/2020 44739 Therapeutic Procedure, Each 15 M inutes Completed 12/24/2020 34369 Manual Therapy Each 15 Minutes C ompleted 12/24/2020 14786 Therapeutic Procedure, Each 15 M inutes Completed 12/19/2020 21598 Manual Therapy Each 15 Minutes C ompleted 12/19/2020 84322 Therapeutic Procedure, Each 15 M inutes Completed 12/12/2020 17602 Manual Therapy Each 15 Minutes C ompleted 12/12/2020 85087 Therapeutic Procedure, Each 15 M inutes Completed 12/10/2020 73475 Physical Therapy Eval - Low Comp lexity Completed 11/28/2020 15040 Office/Outpatient Established Lo w MDM 20-29 Min Completed 10/16/2020 29822 Office/Outpatient Established Mo d MDM 30-39 Min Completed 10/16/2020 30741 Inject/Drain Joint/Bursa Major C ompleted 09/17/2020 93940 Office/Outpatient Established SF MDM 10-19 Min Completed [...] Provider 01/29/2021 M70.61 Trochanteric bursitis, right hip Christophe Batista, NICK 01/29/2021 M51.36 Other intervertebral disc degene ration, lumbar region Christophe Batista, NICK 01/29/2021 M16.11 Unilateral primary osteoarthriti s, right hip Christophe Batista, NICK 01/18/2021 M51.36 Other intervertebral disc degene ration, lumbar region Shade Winter P.T. 01/18/2021 M70.61 Trochanteric bursitis, right hip Shade Winter P.T. 01/14/2021 M51.36 Other intervertebral disc degene ration, lumbar region Agnieszka Scee P.T.A. 01/14/2021 M70.61 Trochanteric bursitis, right hip Agnieszka Scee P.T.A. 01/11/2021 M51.36 Other intervertebral disc degene ration, lumbar region Danamarie Ortolano, TRAFFIC CHIEF 01/11/2021 M70.61 Trochanteric bursitis, right hip Danamarie Ortolano, TRAFFIC CHIEF 01/09/2021 M51.36 Other intervertebral disc degene ration, lumbar region Danamarie Ortolano, TRAFFIC CHIEF 01/09/2021 M70.61 Trochanteric bursitis, right hip Danamarie Ortolano, TRAFFIC CHIEF 01/04/2021 M51.36 Other intervertebral disc degene ration, lumbar region Agnieszka Scee P.T.A. 01/04/2021 M70.61 Trochanteric bursitis, right hip Agnieszka Scee P.T.A. 01/01/2021 M51.36 Other intervertebral disc degene ration, lumbar region Danamarie Ortolano, TRAFFIC CHIEF 01/01/2021 M70.61 Trochanteric bursitis, right hip Danamarie Ortolano, TRAFFIC CHIEF 12/27/2020 M51.36 Other intervertebral disc degene ration, lumbar region Shade CarsonMary Winter P.T. 12/27/2020 M70.61 Trochanteric bursitis, right hip Shade CarsonMary Winter P.T. 12/24/2020 M51.36 Other intervertebral disc degene ration, lumbar region Shade Flora Winter P.T. 12/24/2020 M70.61 Trochanteric bursitis, right hip Shade CarsonMary Winter P.T. 12/19/2020 M51.36 Other intervertebral disc degene ration, lumbar region Roxanna Watkins, TRAFFIC CHIEF 12/19/2020 M70.61 Trochanteric bursitis, right hip Roxanna Watkins, TRAFFIC CHIEF 12/12/2020 M51.36 Other intervertebral disc degene ration, lumbar region Agnieszka Scee P.T.A. 12/12/2020 M70.61 Trochanteric bursitis, right hip Agnieszka Scee P.T.A. 12/10/2020 M51.36 Other intervertebral disc degene ration, lumbar region Shade CarsonMary Winter P.T. 12/10/2020 M70.61 Trochanteric bursitis, right hip Shade AlliMary Winter P.T. 11/28/2020 M51.36 Other intervertebral disc [...] NICK Singh* M70.61 Trochanteric bursitis, right hip* New Xrays:* Fluoroscopic Xray Guided Rt Hip Steroid Injection, Ordered: 01/29/21 * Follow up:* after rt hip inj with IID * M51.36 Other intervertebral disc degeneration, lumbar region * M16.11 Unilateral primary osteoarthritis, right hip Functional Status Description No Information Available Mental Status Description No Information Available Referrals Refer to Dr Reason for Referral Status Appt Date Alexis Whiteside PA-C PT - 10 VISITS OK'D FOR LS/R HIP FROM 12/10-03/10/21, AUTH# [id number], RES# [id number]. SS Created [address] [place] [address] [phone] Alexis Whiteside PA-C Physical Therapy Right Hip,p atient allowed eval then needs auth to PT dept, patient is going to [facility], passed to PT dept sw. Created [address] [place] [address] [phone]
--- OUTSIDE RECORDS SUMMARY | 2021-03-01 17:57 | CCD | Continuity of Care Document ---
Author Author Nanda SOTO P.A.-C. Organization Unknown Address [address] [place] [address] Phone [phone] Care Team Providers Care Spooler Rubber Strand Name Role Phone Lo Hernandez AUTM [phone] Problems Active Problems Provider Date Chronic low [...] Supplies g47.33 1units Beryl Solo M.D. 07/18/2019 Tylenol 8 Hour 650mg Tablets ER Juan Solo M.D. 11/30/2017 Immunizations Description No Information Available Vital Signs Date Vital Result Comment 09/20/2020 8:48am BP Systolic 120 mmHg BP Diastolic 80 mmHg Heart Rate 76 /min Respiratory Rate 16 /min 01/03/2020 6:28am BP Systolic 110 mmHg BP Diastolic 80 mmHg Heart Rate 88 /min Respiratory Rate 20 /min Results Description No Information Available Procedures Date Code Description Status 02/05/2021 92019 Office/Outpatient Established Mo d MDM 30-39 Min Completed 09/20/2020 62101 Office/Outpatient Established Mo d MDM 30-39 Min Completed Medical Devices Description No Information Available Encounters Type Date Location Provider Dx Diagnosis Office Visit 02/05/2021 11:45a [place] Goldman.A[place]. G47.33 Obstructive sleep apnea (adult) (pediatr ic) R26.81 Unsteadiness on feet M79.604 Pain in right leg R20.2 Paresthesia of skin M54.50 Low back pain, unspecified M47.897 Other spondylosis, lumbosacr al region Office Visit 09/20/2020 2:30p Main office - [place] Francie Calle.A.-C. M54.5 Low back pain M47.897 Other spondylosis, lumbosacr al region M79.604 Pain in right leg R20.2 Paresthesia of skin R26.81 Unsteadiness on feet G47.33 Obstructive sleep apnea (roxana lt) (pediatric) Assessments Date Code Description Provider 02/05/2021 G47.33 Obstructive sleep apnea (adult) (pediatric) Francie Camacho.A.-C. 02/05/2021 R26.81 Unsteadiness on feet Francie Sanches.A.-C. 02/05/2021 M79.604 Pain in right leg Neva luevano, P.A.-C. 02/05/2021 R20.2 Paresthesia of skin Francie Calle.A.-C. 02/05/2021 M54.50 Low back pain, unspecified Neva Soto P.A.-C. 02/05/2021 M47.897 Other spondylosis, lumbosacral r egion Neva Soto P.A.-C. 09/20/2020 M54.5 Low back pain Neva Soto P.A.-C. 09/20/2020 M47.897 Other spondylosis, lumbosacral r egion Neva Soto P.A.-C. 09/20/2020 M79.604 Pain in right leg Neva luevano, P.A.-C. 09/20/2020 R20.2 Paresthesia of skin Francie Calle.A.-C. 09/20/2020 R26.81 Unsteadiness on feet Neva abreu P.A.-C. 09/20/2020 G47.33 Obstructive sleep apnea (adult) (pediatric) Neva Soto P.A.-C. Plan of Treatment Future Appointment(s):* 05/07/2021 9:00 am - Neva Soto P.A.-C. at Main office - [place] 02/05/2021 - Neva Soto P.A.-C.* G47.33 Obstructive sleep apnea (adult) (pediatric) * R26.81 Unsteadiness on feet * M79.604 Pain in right leg * R20.2 Paresthesia of skin * M54.50 Low back pain, unspecified * M47.897 Other spondylosis, lumbosacral region Functional Status Description No Information Available Mental Status Description No Information Available Referrals Refer to Dr Reason for Referral Status Appt Date Anam Esquivel M.D. LOW BACK PAIN Created [facility] [address] [address] [phone]"
--- OUTSIDE RECORDS SUMMARY | 2021-03-01 17:57 | CCD ---
Author Organization Unknown Address [address] [place] [address] Phone [phone] Care Team Providers Care Batch Attendant Name Role Phone [facility] 212 [phone] [facility] 2 [phone] [facility] 2 [phone] [facility] 2 [phone] Allergies Code Code System Name Reaction Severity Status Onset Penicillin Active 3 Penicillins Facial Swelling Mild to Moderate Activ e Notes: PCN - Reaction: facial swelling Some allergies listed in Documents: #[id number], #[id number] could not be added to this patient's chart. Please review these documents and add these allergies to the patient's chart manually as needed. Medications Name Status Start Date Stop Date atorvastatin 80 mg tablet TAKE ONE TABLET BY MOUTH DAILY Active Not avai lable Bactrim DS 800 mg-160 mg tablet Take 1 tablet every 12 hours by oral route. Active Not available cyclobenzaprine 5 mg tablet TAKE TWO TABLETS BY MOUTH TWICE A DAY Completed 0 10/10/2020 duloxetine 20 mg capsule,delayed release TAKE TWO CAPSULES BY MOUTH EVERY MORNING Completed 10/10/2020 duloxetine 60 mg capsule,delayed release Active Not available gabapentin 400 mg capsule Completed 2019 gabapentin 800 mg tablet Completed ibuprofen 800 mg tablet Completed 03/01/20 metformin 500 mg tablet Take 1 tablet twice a day by oral route. 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 [...] Notes: Some problems listed in Documents : #[id number], #[id number] could not be added to this patient's [...] [facility] [address], [place] [id number] (Work Place) Results Lab Results Date Name Specimen Result Interpretation Description Value Range Status Address 01/23/2021 Urinalysis, Dipstick, Auto Normal Bilirubin ne g Final [facility] Medical: [address] [facility] ABNORMAL Blood 3+ Final [facility]: [address] [facility] Normal Glucose neg Final Main [facility] Medical: [address] [facility] Normal Ketone neg Final Main [facility] Medical: [address] [facility] ABNORMAL Leukocytes 3+ Final [facility] [place] [facility]: [address] [facility] Normal Nitrite neg Final Main [facility] Medical: [address] [facility] Normal Ph 6.0 Final [facility] Medical: [address] [facility] ABNORMAL Protein 1+ Final [facility] Medical: [address] [facility] Normal Specific [place] 1.020 Final [facility] Medical: [address] [facility] Normal Urobilinogen 0.2 Final [facility] [place] [facility]: [address] [facility] 10/02/2020 CBC W/ Auto Diff Blood venous High White Blood C ount 11.3 10 4.0-10.0 10 [facility]: 83 0 [facility] Blood venous Normal Red Blood Count 4.73 10 4.00- 5.40 10 [facility]: [address] [facility] Blood venous Normal Hemoglobin 15.1 g/dL 12.0-15. 5 g/dL [facility]: [address] [facility] Blood venous Normal Hematocrit 46.1 % 36.0-47.0 % [facility]: [address] [facility] Blood venous High Mean Corpuscular Volume 97.5 fL 80.0-96.0 fL [facility]: [address] [place] [address] Blood venous Normal Mean Corpuscular Hemoglob in 31.9 pg 27.0-33.0 pg [facility]: [address] [place] [address] Blood venous Normal Mean Corpuscular HGB Conc 32.8 g/dL 32.0-36.5 g/dL [facility]: [address] [place] [address] Blood venous Normal Red Cell Distribution Wid th 13.5 % 11.5-14.5 % [facility]: [address] [place] [address] Blood venous High Platelet Count, Automated 459 10 150-450 10 [facility]: [address] [place] [address] Blood venous Normal Neutrophils % 62.6 % 36.0-66. 0 % [facility]: [address] [place] [address] Blood venous Normal Lymph % 26.7 % 24.0-44.0 % [facility]: [address] [place] [address] Blood venous Normal Smith % 7.7 % 2.0-8.0 % [facility]: [address] [place] [address] Blood venous Normal Eos % 1.9 % 0.0-3.0 % [facility]: [address] [place] [address] Blood venous Normal Baso % 0.7 % 0.0-1.0 % [facility]: [address] [place] [address] Blood venous Normal Immature Granulocyte % 0.4 % 0-3.0 % [facility]: [address] [place] [address] Blood venous Normal Nucleated Red Blood Cell % 0. 0 % 0-0 % [facility]: [address] [place] [address] Blood venous Normal Neutrophils # 7.1 10 1.5-8.5 10 [facility]: [address] [place] [address] Blood venous Normal Lymph # 3.0 10 1.5-5.0 10 [facility]: [address] [place] [address] Blood venous High Smith # 0.9 10 0.0-0.8 10 Marilyn pandya [facility]: [address] [place] [address] Blood venous Normal Eos # 0.2 10 0.0-0.5 10 [facility]: [address] [place] [address] Blood venous Normal Baso # 0.1 10 0.0-0.2 10 [facility]: [address] [place] [address] 10/02/2020 HbA1C (Hemoglobin a1C), Blood Blood venous Normal Hemoglobin a1C 6.1 % [facility]: [address] [place] [address] Blood venous High Estimated Average Glucose 128 mg/dL 60-110 mg/dL [facility]: [address] [place] [address] 10/02/2020 CMP, Serum or Plasma Blood venous High Glu cose, Fasting 119 mg/dL 70-100 mg/dL [facility] nter: [address] [place] [address] Blood venous Normal Blood Urea Nitrogen 8 mg/dL 7 -18 mg/dL [facility]: [address] [place] [address] Blood venous Normal Creatinine for GFR 0.67 mg/dL 0.55-1.30 mg/dL [facility]: [address] [place] [address] Blood venous Normal Glomerular Filtration Rate > 60.0 >58 [facility]: [address] [place] [address] Blood venous Normal Sodium Level 140 mEq/L 136-14 5 mEq/L [facility]: [address] [place] [address] Blood venous Normal Potassium Serum 4.3 mEq/L 3.5 -5.1 mEq/L [facility]: [address] [place] [address] Blood venous Normal Chloride Level 107 mEq/L 98-1 07 mEq/L [facility]: [address] [place] [address] Blood venous Normal Carbon Dioxide Level 26 mEq/L 21-32 mEq/L [facility]: [address] [place] [address] Blood venous Low Anion Gap 7 mEq/L 8-16 mEq/L [facility]: [address] [place] [address] Blood venous Normal Calcium Level 8.9 mg/dL 8.5-1 0.1 mg/dL [facility]: [address] [place] [address] Blood venous Normal AST/SGOT 10 U/L 7-37 U/L [facility]: [address] [facility] Blood venous Normal ALT/SGPT 20 U/L 12-78 U/L [facility]: [address] [facility] Blood venous High Alkaline Phosphatase 131 U/L 45-117 U/L [facility]: [address] [facility] Blood venous Normal Bilirubin,total 0.3 mg/dL 0.2 -1.0 mg/dL [facility]: [address] [facility] Blood venous Normal Total Protein 7.2 gm/dL 6.4-8 .2 gm/dL [facility]: [address] [facility] Blood venous Normal Albumin 3.5 gm/dL 3.2-5.2 gm/ dL [facility]: [address] [facility] Blood venous Low Albumin/globulin Ratio 0.9 1.2-2.2 [facility]: [address] [facility] 10/02/2020 Lipid Panel, Blood Blood venous High Trigl ycerides Level 309 mg/dL <150 mg/dL [facility] nter: [address] [facility] Blood venous Normal Cholesterol Level 144 mg/dL < 200 mg/dL [facility]: [address] [facility] Blood venous Low HDL Cholesterol 35 mg/dL >40 mg/dL [facility]: [address] [facility] Blood venous Normal LDL Cholesterol 47 mg/dL <100 mg/dL [facility]: [address] [facility] Blood venous Normal Non-hdl-c 109 mg/dL [facility]: [address] [facility] Blood venous Normal Cholesterol Risk Ratio 4.114 <5 [facility]: [address] [facility] 08/20/2020 SARS CoV 2 RdRp Gene, QL Probe, Respiratory Spec imen Nasopharyngeal Normal Sars-cov-2 negative negative Final [facility] Medical: [address] [facility] 05/23/2020 CBC W/ Auto Diff Blood venous High White Blood C ount 10.6 10 4.0-10.0 10 [facility]: 83 0 [facility] Blood venous Normal Red Blood Count 4.71 10 4.00- 5.40 10 [facility]: [address] [facility] Blood venous Normal Hemoglobin 14.7 g/dL 12.0-15. 5 g/dL [facility]: [address] [place] [address] Blood venous Normal Hematocrit 44.8 % 36.0-47.0 % [facility]: [address] [place] [address] Blood venous Normal Mean Corpuscular Volume 95.1 fL 80.0-96.0 fL [facility]: [address] [place] [address] venous Normal Mean Corpuscular Hemoglob in 31.2 pg 27.0-33.0 pg [facility]: [address] [place] [address] Blood venous Normal Mean Corpuscular HGB Conc 32.8 g/dL 32.0-36.5 g/dL [facility]: [address] [place] [address] Blood venous Normal Red Cell Distribution Wid th 13.4 % 11.5-14.5 % [facility]: [address] [place] [address] Blood venous Normal Platelet Count, Automated 408 10 150-450 10 [facility]: 0 [facility] Blood venous Normal Neutrophils % 65.7 % 36.0-66. 0 % [facility]: [address] [place] [address] Blood venous Normal Lymph % 24.4 % 24.0-44.0 % [facility]: [address] [place] [address] Blood venous High Smith % 7.5 % 0.0-5.0 % [facility]: [address] [place] [address] Blood venous Normal Eos % 1.4 % 0.0-3.0 % [facility]: [address] [place] [address] Blood venous Normal Baso % 0.5 % 0.0-1.0 % [facility]: [address] [place] [address] Blood venous Normal Immature Granulocyte % 0.5 % 0-3.0 % [facility]: [address] [place] [address] Blood venous Normal Nucleated Red Blood Cell % 0. 0 % 0-0 % [facility]: [address] [place] [address] Blood venous Normal Neutrophils # 7.0 10 1.5-8.5 10 [facility]: [address] [place] [address] Blood venous Normal Lymph # 2.6 10 1.5-5.0 10 [facility]: [address] [place] [address] Blood venous Normal Smith # 0.8 10 0.0-0.8 10 [facility]: [address] [place] [address] Blood venous Normal Eos # 0.2 10 0.0-0.5 10 [facility]: [address] [place] [address] Blood venous Normal Baso # 0.1 10 0.0-0.2 10 [facility]: [address] [place] [address] 05/23/2020 CMP, Serum or Plasma Blood capillary High Glucose, Fasting 108 mg/dL 70-100 mg/dL [facility] nter: [address] [place] [address] Blood capillary Normal Blood Urea Nitrogen 11 mg/ dL 7-18 mg/dL [facility]: [address] [place] [address] Blood capillary Normal Creatinine for GFR 0. 72 mg/dL 0.55-1.30 mg/dL [facility]: [address] [place] [address] Blood capillary Normal Glomerular Filtration Rate > 60.0 >58 [facility]: [address] [place] [address] Blood capillary Normal Sodium Level 139 mEq/L 136 -145 mEq/L [facility]: [address] [place] [address] Blood capillary Normal Potassium Serum 4.4 mEq/L 3.5-5.1 mEq/L [facility]: [address] [place] [address] Blood capillary Normal Chloride Level 107 mEq/L 9 8-107 mEq/L [facility]: [address] [place] [address] Blood capillary Normal Carbon Dioxide Level 25 mE q/L 21-32 mEq/L [facility]: [address] [place] [address] Blood capillary Low Anion Gap 7 mEq/L 8-16 mEq /L [facility]: [address] [place] [address] Blood capillary Normal Calcium Level 8.8 mg/dL 8. 5-10.1 mg/dL [facility]: [address] [facility] Blood capillary Normal AST/SGOT 9 U/L 7-37 U/L F [place] [facility]: [address] [facility] Blood capillary Normal ALT/SGPT 19 U/L 12-78 U/L [facility]: [address] [place] [address] Blood capillary High Alkaline Phosphatase 118 U /L 45-117 U/L [facility]: [address] [facility] Blood capillary Normal Bilirubin,total 0.4 mg/dL 0.2-1.0 mg/dL [facility]: [address] [place] [address] Blood capillary Normal Total Protein 6.9 gm/dL 6. 4-8.2 gm/dL [facility]: [address] [place] [address] Blood capillary Normal Albumin 3.5 gm/dL 3.2-5.2 gm/dL [facility]: [address] [place] [address] Blood capillary Low Albumin/globulin Ratio 1.0 1.2-2.2 [facility]: [address] [place] [address] 05/23/2020 Lipid Panel, Blood Blood venous High Trigl ycerides Level 228 mg/dL <150 mg/dL [facility] nter: [address] [place] [address] Blood venous Normal Cholesterol Level 155 mg/dL < 200 mg/dL [facility]: [address] [place] [address] Blood venous Low HDL Cholesterol 37 mg/dL >40 mg/dL [facility]: [address] [place] [address] Blood venous Normal LDL Cholesterol 72 mg/dL <100 mg/dL [facility]: [address] [place] [address] Blood venous Normal Non-hdl-c 118 mg/dL [facility]: [address] [place] [address] Blood venous Normal Cholesterol Risk Ratio 4.189 <5 [facility]: [address] [place] [address] 05/23/2020 HbA1C (Hemoglobin a1C), Blood Blood venous Normal Hemoglobin a1C 6.1 % [facility]: [address] [facility] Blood venous High Estimated Average Glucose 128 mg/dL 60-110 mg/dL [facility]: [address] [facility] 05/03/2020 SARS CoV 2 RdRp Gene, QL Probe, Respiratory Spec imen Nasopharyngeal Normal Sars-cov-2 negative negative Final [facility] Medical: [address] [facility] 02/23/2020 CBC W/ Auto Diff High White Blood Count 10.6 10 4.0-10.0 10 Final [facility]: [address] [facility] Normal Red Blood Count 4.79 10 4.00-5.40 10 [facility]: [address] [facility] Normal Hemoglobin 14.9 g/dL 12.0-15.5 g/dL [facility]: 0 [facility] Normal Hematocrit 46.0 % 36.0-47.0 % [facility]: [address] [facility] Normal Mean Corpuscular Volume 96.0 fL 80.0 -96.0 fL [facility]: [address] [facility] Normal Mean Corpuscular Hemoglobin 31.1 pg 27.0-33.0 pg [facility]: 0 [facility] Normal Mean Corpuscular HGB Conc 32.4 g/dL 32.0-36.5 g/dL [facility]: [address] [facility] Normal Red Cell Distribution Width 13.7 % 1 1.5-14.5 % [facility]: [address] [facility] Normal Platelet Count, Automated 390 10 150 -450 10 [facility]: [address] [facility] Normal Neutrophils % 62.1 % 36.0-66.0 % [facility]: [address] [facility] Normal Lymph % 27.1 % 24.0-44.0 % [facility]: [address] [facility] High Smith % 7.5 % 0.0-5.0 % [facility]: [address] [facility] Normal Eos % 2.1 % 0.0-3.0 % [facility]: [address] [facility] Normal Baso % 0.6 % 0.0-1.0 % [facility]: [address] [facility] Normal Immature Granulocyte % 0.6 % 0-3.0 % [facility]: [address] [facility] Normal Nucleated Red Blood Cell % 0.0 % 0- 0 % [facility]: [address] [facility] Normal Neutrophils # 6.6 10 1.5-8.5 10 [facility] [address] [facility] Normal Lymph # 2.9 10 1.5-5.0 10 [facility]: [address] [facility] Normal Smith # 0.8 10 0.0-0.[address] [facility]: [address] [facility] Normal Eos # 0.2 10 0.0-0.5 10 [facility]: [address] [facility] Normal Baso # 0.1 10 0.0-0.[address] [facility]: [address] [facility] 02/23/2020 CMP, Serum or Plasma Normal Glucose, Fastin g 96 mg/dL 70-100 mg/dL [facility]: 83 0 [facility] Normal Blood Urea Nitrogen 11 mg/dL 7-18 mg /dL [facility]: 0 [facility] Normal Creatinine for GFR 0.74 mg/dL 0.55-1 .30 mg/dL [facility]: [address] [facility] Normal Glomerular Filtration Rate > 60.0 >5 8 [facility]: [address] [facility] Normal Sodium Level 140 mEq/L 136-145 mEq/L [facility]: 0 [facility] Normal Potassium Serum 4.5 mEq/L 3.5-5.1 mE q/L [facility]: 0 [facility] High Chloride Level 108 mEq/L 98-107 mEq/ L [facility]: [address] [facility] Normal Carbon Dioxide Level 24 mEq/L 21-32 mEq/L [facility]: [address] [facility] Normal Anion Gap 8 mEq/L 8-16 mEq/L [facility]: [address] [facility] Normal Calcium Level 9.0 mg/dL 8.5-10.1 mg/ dL [facility]: [address] [facility] Normal AST/SGOT 9 U/L 7-37 U/L Final [facility]: [address] [facility] Normal ALT/SGPT 20 U/L 12-78 U/L [facility]: [address] [facility] High Alkaline Phosphatase 128 U/L 45-117 U/L [facility]: [address] [facility] Normal Bilirubin,total 0.4 mg/dL 0.2-1.0 mg /dL [facility]: [address] [facility] Normal Total Protein 7.0 gm/dL 6.4-8.2 gm/d L [facility]: [address] [facility] Normal Albumin 3.5 gm/dL 3.2-5.2 gm/dL [facility] [address] [facility] Low Albumin/globulin Ratio 1.0 1.2-2. 2 [facility]: [address] [facility] 02/23/2020 Lipid Panel, Blood High Triglycerides Lev el 197 mg/dL <150 mg/dL [facility]: 83 0 [facility] Normal Cholesterol Level 150 mg/dL <200 mg/ dL [facility]: [address] [facility] Low HDL Cholesterol 34 mg/dL >40 mg/dL F inal [facility]: [address] [facility] Normal LDL Cholesterol 77 mg/dL <100 mg/dL [facility]: [address] [facility] Normal Non-hdl-c 116 mg/dL [facility]: [address] [facility] Normal Cholesterol Risk Ratio 4.411 <5 [facility]: [address] [facility] 02/23/2020 Vitamin D, 25-Hydroxy, Total, Serum Low Total 25(Oh) Vitamin D 27.8 NG/mL 30.0-100.0 NG/mL [facility] nter: [address] [facility] 02/23/2020 HbA1C (Hemoglobin a1C), Blood Normal Hemogl obin a1C 6.0 % [facility]: [address] [facility] High Estimated Average Glucose 126 mg/dL 60-110 mg/dL Final [facility]: [address] [facility] Past Encounters 01/23/2021 Dysuria; Body Mass Index 30+ - Obesity; Hyperglycemia Jeanmarie Fleming MD: [address] [place] [phone], Ph. 01/03/2021 Body Mass Index 40+ - Severely Obese; Hypertensive Disorder; Chronic Low Back Pain; Screening Mammography of Bilateral Breasts; Decreased Hearing; Prediabetes; Patient Asked to Attend [facility] [address] [place] [phone], Ph. 12/11/2020 Elevated Blood-pressure Reading without Diagnosis of Hypertension; Counseling Kevin Us, [facility]: [address] [place] [address], [address] [phone], Ph. 11/29/2020 Nicotine Dependence with Current Use; Patient Asked to Attend; Hyperlipidemia; Prediabetes [facility]: [address] [place] [phone], Ph. 11/22/2020 Elevated Blood-pressure Reading without Diagnosis of Hypertension; Severe Obesity; Body Mass Index 40+ - Severely Obese; Nicotine Dependence with Current Use [facility]: [address] [place] [phone], Ph. 10/10/2020 Nicotine Dependence with Current Use; Patient Asked to Attend; Obesity [facility]: [address] [place] [phone], Ph. 10/02/2020 Lora Hernandez [facility]: [address] [place] [phone], Ph. 08/20/2020 Exposure to SARS-CoV-2 Jeanmarie Fleming MD: [address] [place] [phone], Ph. 05/31/2020 Nicotine Dependence with Current Use; Obesity; Prediabetes; Patient Asked to Attend Augusta David [facility]: [address] [place] [phone], Ph. 05/23/2020 Hyperlipidemia Lora Hernandez [facility]: [address] [place] [phone], Ph. 05/03/2020 Exposure to SARS-CoV-2 Jeanmarie Fleming MD: [address] [place] [phone], Ph. 03/01/2020 Patient Asked to Attend; Mixed Hyperlipidemia; Hypertensive Disorder; Lumbosacral Radiculopathy; Nicotine Dependence [facility]: [address] [place] [phone], Ph. Social History Tobacco Smoking Status Heavy Tobacco Smoker (1/2 pack per a day) Vaccine List Vaccine Type COVID-19, mRNA, LNP-S, PF, 30 mcg/0.3 mL dose 12/25/2020 01/15/2021 Notes: Pt declined flu shot Plan of Care Patient Instructions Lab results reviewed and discussed [...] Imaging None recorded. Vitals 01/23/2021 11:20AM ESTABLISHED [id number] Height Weight BMI Blood Pressure 66 in 270 lbs 43.6 kg/m2 (1) 141/93 mm[H g] (2) 126/83 mm[Hg] 01/03/2021 03:40PM ESTABLISHED [id number] Height Weight BMI Blood Pressure 66 in 265 lbs 16 oz 42.9 kg/m2 129/87 mm[Hg] 12/11/2020 12:00PM SAME DAY 20 Height Weight BMI Blood Pressure 66 in 261 lbs 9.6 oz 42.2 kg/m2 (1) 136/82 m m[Hg] (2) 130/80 mm[Hg] 11/29/2020 09:20AM TELEHEALTH 20 Height 66 in 11/22/2020 11:40AM ESTABLISHED [id number] Height Weight BMI Blood Pressure 66 in 271 lbs 4 oz 43.8 kg/m2 121/80 mm[Hg] 10/10/2020 09:40AM TELEHEALTH 20 Height 66 in 10/02/2020 11:00AM NURSE LAB COLLECTION Height 66 in 05/31/2020 11:00AM ESTABLISHED [id number] Height Weight BMI Blood Pressure 66 in 258 lbs 16 oz 41.8 kg/m2 132/87 mm[Hg] 03/01/2020 11:20AM ESTABLISHED [id number] Height Weight BMI Blood Pressure 66 in [...]
--- OUTSIDE RECORDS SUMMARY | 2021-03-01 17:58 | CCD | Continuity of Care Document ---
Author Author Nanda GARCIA [facility] Organization Unknown Address [address] [place] [address] Phone [phone] Care Team Providers Care Strap Maker Name Role Phone Ada Camara MD AUTM [phone] Lo Hernandez AUTM Problems Description No Information [...] Available Procedures Date Code Description Status 01/14/2021 84955 Therapeutic Procedure, Each 15 M inutes Completed 01/14/2021 51858 Manual Therapy Each 15 Minutes C ompleted 01/11/2021 86362 Manual Therapy Each 15 Minutes C ompleted 01/11/2021 31443 Therapeutic Procedure, Each 15 M inutes Completed 01/09/2021 79824 Manual Therapy Each 15 Minutes C ompleted 01/09/2021 19154 Therapeutic Procedure, Each 15 M inutes Completed 01/04/2021 20307 Manual Therapy Each 15 Minutes C ompleted 01/04/2021 74670 Therapeutic Procedure, Each 15 M inutes Completed 01/01/2021 71042 Manual Therapy Each 15 Minutes C ompleted 01/01/2021 72866 Therapeutic Procedure, Each 15 M inutes Completed 12/27/2020 82375 Therapeutic Procedure, Each 15 M inutes Completed 12/27/2020 43624 Manual Therapy Each 15 Minutes C ompleted 12/24/2020 19913 Manual Therapy Each 15 Minutes C ompleted 12/24/2020 50023 Therapeutic Procedure, Each 15 M inutes Completed 12/19/2020 96383 Manual Therapy Each 15 Minutes C ompleted 12/19/2020 82558 Therapeutic Procedure, Each 15 M inutes Completed 12/12/2020 78282 Manual Therapy Each 15 Minutes C ompleted 12/12/2020 93738 Therapeutic Procedure, Each 15 M inutes Completed 12/10/2020 44219 Physical Therapy Eval - Low Comp lexity Completed 11/28/2020 82997 Office/Outpatient Established Lo w MDM 20-29 Min Completed 10/16/2020 13556 Office/Outpatient Established Mo d MDM 30-39 Min Completed 10/16/2020 Inject/Drain Joint/Bursa Major C ompleted 09/17/2020 70895 Office/Outpatient Established SF MDM 10-19 Min Completed [...] disc degene ration, lumbar region Danamarie Ortolano, FOOD TECHNICIAN 01/11/2021 M70.61 Trochanteric bursitis, right hip Danamarie Ortolano, FOOD TECHNICIAN 01/09/2021 M51.36 Other intervertebral disc degene ration, lumbar region Danamarie Ortolano, FOOD TECHNICIAN 01/09/2021 M70.61 Trochanteric bursitis, right hip Danamarie Ortolano, FOOD TECHNICIAN 01/04/2021 M51.36 Other intervertebral disc degene ration, lumbar region Agnieszka Scee P.T.A. 01/04/2021 M70.61 Trochanteric bursitis, right hip Agnieszka Scee P.T.A. 01/01/2021 M51.36 Other intervertebral disc degene ration, lumbar region Danamarie Ortolano, FOOD TECHNICIAN 01/01/2021 M70.61 Trochanteric bursitis, right hip Danamarie Ortolano, FOOD TECHNICIAN 12/27/2020 M51.36 Other intervertebral disc degene ration, lumbar region Shade Winter P.T. 12/27/2020 M70.61 Trochanteric bursitis, right hip Shade Winter P.T. 12/24/2020 M51.36 Other intervertebral disc degene ration, lumbar region Shade Flora Winter P.T. 12/24/2020 M70.61 Trochanteric bursitis, right hip Shade Flora Winter P.T. 12/19/2020 M51.36 Other intervertebral disc degene ration, lumbar region Roxanna Watkins, FOOD TECHNICIAN 12/19/2020 M70.61 Trochanteric bursitis, right hip Roxanna Watkins, FOOD TECHNICIAN 12/12/2020 M51.36 Other intervertebral disc degene ration, lumbar region Agnieszka Connie P.T.A. 12/12/2020 M70.61 Trochanteric bursitis, right hip [...] 01/29/2021 8:30 am - NICK Singh at [place] Functional Status Description No Information Available Mental Status Description No Information Available Referrals Refer to Dr Reason for Referral Status Appt Date Alexis Whiteside PA-C PT - 10 VISITS OK'D FOR LS/R HIP FROM 12/10-03/10/21, AUTH# [id number], RES# [id number]. SS Created [address] [place] [address] [address] [place] [address] [phone] Alexis Whiteside, PA-C Physical Therapy Right Hip,p atient allowed eval then needs auth to PT dept, patient is going to [facility] [place], passed to PT dept sw. Created [address] [place] [address] [phone] Matthew Bianchi MD MRI APPROVED PER [employer] FOR MRI OF L SPINE (93253) TO SERGEY JAUREGUI Created [address] [place] [address], [address] [place] [address] [phone]"
--- OUTSIDE RECORDS SUMMARY | 2021-03-01 17:58 | CCD | Continuity of Care Document ---
Author Author Nanda GARCIA [facility] Organization Unknown Address [address] [place] [address] Phone [phone] Care Team Providers Care Apartment Maintenance Worker Name Role Phone Ada Camara MD AUTM [...] Information Available Procedures Date Code Description Status 01/09/2021 22069 Therapeutic Procedure, Each 15 M inutes Completed 01/09/2021 39167 Manual Therapy Each 15 Minutes C ompleted 01/04/2021 86567 Manual Therapy Each 15 Minutes C ompleted 01/04/2021 78657 Therapeutic Procedure, Each 15 M inutes Completed 01/01/2021 94588 Manual Therapy Each 15 Minutes C ompleted 01/01/2021 21100 Therapeutic Procedure, Each 15 M inutes Completed 12/27/2020 87967 Manual Therapy Each 15 Minutes C ompleted 12/27/2020 63422 Therapeutic Procedure, Each 15 M inutes Completed 12/24/2020 34628 Manual Therapy Each 15 Minutes C ompleted 12/24/2020 78580 Therapeutic Procedure, Each 15 M inutes Completed 12/19/2020 48070 Manual Therapy Each 15 Minutes C ompleted 12/19/2020 49538 Therapeutic Procedure, Each 15 M inutes Completed 12/12/2020 48834 Manual Therapy Each 15 Minutes C ompleted 12/12/2020 47602 Therapeutic Procedure, Each 15 M inutes Completed 12/10/2020 33603 Physical Therapy Eval - Low Comp lexity Completed 11/28/2020 98091 Office/Outpatient Established Lo w MDM 20-29 Min Completed 10/16/2020 04310 Office/Outpatient Established Mo d MDM 30-39 Min Completed 10/16/2020 29759 Inject/Drain Joint/Bursa Major C ompleted 09/17/2020 05402 Office/Outpatient Established SF MDM 10-19 Min Completed 07/16/2020 44018 Office/Outpatient Established Mo d MDM 30-39 Min [...] M70.61 Trochanteric bursitis, right hip Office Visit 07/16/2020 1:30p Tiffanie Bianchi MD M51.36 Other intervertebral disc degeneration, lumbar region M54.31 Sciatica, right side Assessments Date Code Description Provider 01/09/2021 M51.36 Other intervertebral disc degene ration, lumbar region Danamarie Ortolano, HISTORY TUTOR 01/09/2021 M70.61 Trochanteric bursitis, right hip Danamarie Ortolano, HISTORY TUTOR 01/04/2021 M51.36 Other intervertebral disc degene ration, lumbar region Agnieszka Scee P.T.A. 01/04/2021 M70.61 Trochanteric bursitis, right hip Agnieszka Scee P.T.A. 01/01/2021 M51.36 Other intervertebral disc degene ration, lumbar region Danamarie Ortolano, HISTORY TUTOR 01/01/2021 M70.61 Trochanteric bursitis, right hip Danamarie Ortolano, HISTORY TUTOR 12/27/2020 M51.36 Other intervertebral disc degene ration, lumbar region Shade Winter P.T. 12/27/2020 M70.61 Trochanteric bursitis, right hip Shade Hines Cook P.T. 12/24/2020 M51.36 Other intervertebral disc degene ration, lumbar region Shade Hines Cook P.T. 12/24/2020 M70.61 Trochanteric bursitis, right hip Shade Winter P.T. 12/19/2020 M51.36 Other intervertebral disc degene ration, lumbar region Roxanna Lea Watkins, HISTORY TUTOR 12/19/2020 M70.61 Trochanteric bursitis, right hip Roxanna Watkins, HISTORY TUTOR 12/12/2020 M51.36 Other intervertebral disc degene ration, lumbar region Agnieszka Scee P.T.A. 12/12/2020 M70.61 Trochanteric bursitis, right hip Agnieszka Rosales P.T.A. 12/10/2020 M51.36 Other intervertebral disc degene ration, lumbar region Shade Marmolejo.TMary 12/10/2020 M70.61 Trochanteric bursitis, right hip Shade Marmolejo.T. 11/28/2020 M51.36 Other intervertebral disc degene ration, lumbar region Alexis Whiteside PA-C 11/28/2020 M70.61 Trochanteric bursitis, right hip Alexis Whiteside, [place] 10/16/2020 M51.36 Other intervertebral disc degene ration, lumbar region Alexis Whiteside PA-C 10/16/2020 M70.61 Trochanteric bursitis, right hip Alexis Whiteside PA-C 09/17/2020 M51.36 Other intervertebral disc degene ration, lumbar region Alexis Whiteside PA-C 09/17/2020 M70.61 Trochanteric bursitis, right hip Alexis Whiteside PA-C 07/16/2020 M51.36 Other intervertebral disc degene ration, lumbar region Matthew Bianchi MD 07/16/2020 M54.31 Sciatica, right side Matthew contreras MD Plan of Treatment Future Appointment(s):* 01/18/2021 8:30 am - Shade Winter P.T. at Physical Therapy * 01/14/2021 8:30 am - Agnieszka Rosales P.T.AMary at Physical Therapy * 01/29/2021 8:30 am - NICK Singh at [place] Functional Status Description No Information Available Mental Status Description No Information Available Referrals Refer to Dr Reason for Referral Status Appt Date Alexis Whiteside PA-C PT - 10 VISITS OK'D FOR LS/R HIP FROM 12/10-03/10/21, AUTH# [id number], RES# [id number]. SS Created [address] [facility] [address] [place] [id number] [phone] Alexis Whiteside, PAAnaliC Physical Therapy Right Hip,p atient allowed eval then needs auth to PT dept, patient [place] going [place] [facility] passed to PT dept sw. Created [address] [place] [address] [address] [place] [address] [phone] Matthew Bianchi MD MRI APPROVED PER [employer] FOR MRI OF L SPINE (00611) TO SERGEY JAUREGUI Created [address] [place] [address], [address] [place] [address] [phone]"
--- OUTSIDE RECORDS SUMMARY | 2021-03-01 17:58 | CCD | Continuity of Care Document ---
Author Author Nanda GARCIA [facility] Organization Unknown Address [address] [place] [address] Phone [phone] Care Team Providers Care Senior Director Insight Name Role Phone Ada Camara MD AUTM [phone] Lo Hernandez AUTM [phone] Problems Description No Information Available Social [...] Available Procedures Date Code Description Status 01/14/2021 61344 Therapeutic Procedure, Each 15 M inutes Completed 01/14/2021 47594 Manual Therapy Each 15 Minutes C ompleted 01/11/2021 59322 Manual Therapy Each 15 Minutes C ompleted 01/11/2021 14396 Therapeutic Procedure, Each 15 M inutes Completed 01/09/2021 10301 Manual Therapy Each 15 Minutes C ompleted 01/09/2021 62723 Therapeutic Procedure, Each 15 M inutes Completed 01/04/2021 98843 Manual Therapy Each 15 Minutes C ompleted 01/04/2021 94170 Therapeutic Procedure, Each 15 M inutes Completed 01/01/2021 72920 Manual Therapy Each 15 Minutes C ompleted 01/01/2021 07572 Therapeutic Procedure, Each 15 M inutes Completed 12/27/2020 30750 Therapeutic Procedure, Each 15 M inutes Completed 12/27/2020 24733 Manual Therapy Each 15 Minutes C ompleted 12/24/2020 75280 Manual Therapy Each 15 Minutes C ompleted 12/24/2020 88143 Therapeutic Procedure, Each 15 M inutes Completed 12/19/2020 75855 Manual Therapy Each 15 Minutes C ompleted 12/19/2020 85284 Therapeutic Procedure, Each 15 M inutes Completed 12/12/2020 19522 Manual Therapy Each 15 Minutes C ompleted 12/12/2020 06928 Therapeutic Procedure, Each 15 M inutes Completed 12/10/2020 55808 Physical Therapy Eval - Low Comp lexity Completed 11/28/2020 61115 Office/Outpatient Established Lo w MDM 20-29 Min Completed 10/16/2020 25991 Office/Outpatient Established Mo d MDM 30-39 Min Completed 10/16/2020 Inject/Drain Joint/Bursa Major C ompleted 09/17/2020 05562 Office/Outpatient Established SF MDM 10-19 Min Completed [...] disc degene ration, lumbar region Danamarie Ortolano, CANDY PACKER 01/11/2021 M70.61 Trochanteric bursitis, right hip Danamarie Ortolano, CANDY PACKER 01/09/2021 M51.36 Other intervertebral disc degene ration, lumbar region Danamarie Ortolano, CANDY PACKER 01/09/2021 M70.61 Trochanteric bursitis, right hip Danamarie Ortolano, CANDY PACKER 01/04/2021 M51.36 Other intervertebral disc degene ration, lumbar region Agnieszka Scee P.T.A. 01/04/2021 M70.61 Trochanteric bursitis, right hip Agnieszka Scee P.T.A. 01/01/2021 M51.36 Other intervertebral disc degene ration, lumbar region Danamarie Ortolano, CANDY PACKER 01/01/2021 M70.61 Trochanteric bursitis, right hip Danamarie Ortolano, CANDY PACKER 12/27/2020 M51.36 Other intervertebral disc degene ration, lumbar region Shade Winter P.T. 12/27/2020 M70.61 Trochanteric bursitis, right hip Shade Winter P.T. 12/24/2020 M51.36 Other intervertebral disc degene ration, lumbar region Shade Flora Winter P.T. 12/24/2020 M70.61 Trochanteric bursitis, right hip Shade Flora Winter P.T. 12/19/2020 M51.36 Other intervertebral disc degene ration, lumbar region Roxanna Watkins, CANDY PACKER 12/19/2020 M70.61 Trochanteric bursitis, right hip Roxanna Watkins, CANDY PACKER 12/12/2020 M51.36 Other intervertebral disc degene ration, [...] 01/29/2021 8:30 am - NICK Singh at [place] Functional Status Description No Information Available Mental Status Description No Information Available Referrals Refer to Dr Reason for Referral Status Appt Date Alexis Whiteside PA-C PT - 10 VISITS OK'D FOR LS/R HIP FROM 12/10-03/10/21, AUTH# [id number], RES# [id number]. SS Created [address] [place] [address] [address] [place] [address] [phone] Alexis Whiteside, PA-C Physical Therapy Right Hip,p atient allowed eval then needs auth to PT dept, patient is going to [facility], passed to PT dept sw. Created [address] [place] [address] [phone] Matthew Bianchi MD MRI APPROVED PER [employer] FOR MRI OF L SPINE (69399) TO SERGEY JAUREGUI Created [address] [place] [address], [address] [place] [address] [phone]"
--- OUTSIDE RECORDS SUMMARY | 2021-03-01 17:58 | CCD | Continuity of Care Document ---
Author Author Nanda [facility] Organization Unknown Address [address] [place] [address] [address] [place] [address] Phone [phone] Care Team Providers Care Quality Director Name Role Phone Ada Camara MD AUTM Lo Hernandez AUTM [phone] Problems Description No Information Available Social History Type Date Description Comments Sex Unknown ETOH Use Denies alcohol use Tobacco Use Start: Unknown Patient is a current smoker, smo kes every day smokes half a pack a day Smoking Status Reviewed: 01/11/19 Patient is a current smoker, smokes every day smokes half a pack a [...] Bianchi MD 07/16/2020 Pregabalin 75mg Capsules take 1 capsule by mouth three times a day 90caps M51.36 Eugenia Dutton MD 07/06/2020 Cymbalta [...] Information Available Procedures Date Code Description Status 12/27/2020 51446 Manual Therapy Each 15 Minutes C ompleted 12/27/2020 50751 Therapeutic Procedure, Each 15 M inutes Completed 12/24/2020 47522 Manual Therapy Each 15 Minutes C ompleted 12/24/2020 22502 Therapeutic Procedure, Each 15 M inutes Completed 12/19/2020 86901 Manual Therapy Each 15 Minutes C ompleted 12/19/2020 49569 Therapeutic Procedure, Each 15 M inutes Completed 12/12/2020 11775 Manual Therapy Each 15 Minutes C ompleted 12/12/2020 20859 Therapeutic Procedure, Each 15 M inutes Completed 12/10/2020 28006 Physical Therapy Eval - Low Comp lexity Completed 11/28/2020 65250 Office/Outpatient Established Lo w MDM 20-29 Min Completed 10/16/2020 38179 Office/Outpatient Established Mo d MDM 30-39 Min Completed 10/16/2020 03575 Inject/Drain Joint/Bursa Major C ompleted 09/17/2020 34584 Office/Outpatient Established SF MDM 10-19 Min Completed 07/16/2020 46837 Office/Outpatient Established Mo d MDM 30-39 Min [...] bursitis, right hip Office Visit 07/16/2020 1:30p [place] Bian[place] MD M51.36 Other intervertebral disc degeneration, lumbar region M54.31 Sciatica, right side Office Visit 07/05/2020 1:00p [place] NICK Sahu M51.36 Other intervertebral disc degeneration, lumbar region M48.061 Spinal stenosis, lumbar deondre on without neurogenic ginette 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 12/24/2020 M70.61 Trochanteric bursitis, right hip Shade Winter P.T. 12/19/2020 M51.36 Other intervertebral disc degene ration, lumbar region Roxanna Lea Watkins, PARKING METER ATTENDANT 12/19/2020 M70.61 Trochanteric bursitis, right hip Roxanna Watkins, PARKING METER ATTENDANT 12/12/2020 M51.36 Other intervertebral disc degene ration, lumbar region Agnieszka Scee P.T.A. 12/12/2020 M70.61 Trochanteric bursitis, right hip Agnieszka Scee P.T.A. 12/10/2020 M51.36 Other intervertebral disc degene ration, lumbar region Shade Winter P.T. 12/10/2020 M70.61 Trochanteric bursitis, right [...] M54.31 Sciatica, right side Matthew contreras MD 07/05/2020 M51.36 Other intervertebral disc degene ration, lumbar region NICK Sahu 07/05/2020 M48.061 Spinal stenosis, lumbar region w ithout neurogenic claudicati NICK Sahu 07/05/2020 M47.816 Spondylosis without myelopathy o r radiculopathy, lumbar deondre NICK Sahu 07/05/2020 M79.18 Myalgia, other site Jose F roach PA Plan of Treatment Future Appointment(s):* 01/04/2021 10:00 am - Agnieszka Rosales P.T.A. at Physical Therapy * 01/01/2021 8:30 am - Allison Marcus PTA at Physical Therapy * 01/29/2021 8:30 am - NICK Singh at [place] Functional Status Description No Information Available Mental Status Description No Information Available Referrals Refer to Dr Reason for Referral Status Appt Date Alexis Whiteside PA-C PT - 10 VISITS OK'D FOR LS/R HIP FROM 12/10-03/10/21, AUTH# [id number], RES# [id number]. SS Created [address] [place] [address] [phone] Alexis Whiteside PA-C Physical Therapy Right Hip,p atient allowed eval then needs auth to PT dept, patient is going to [facility], passed to PT dept sw. Created [address] [place] [address] [phone] Matthew Bianchi MD MRI APPROVED PER [employer] FOR MRI OF L SPINE (30422) TO SERGEY JAUREGUI Created [address] [place] [address], [address] [place] [address] [phone]"
--- OUTSIDE RECORDS SUMMARY | 2021-03-01 17:58 | CCD | Continuity of Care Document ---
Author Author Nanda GARCIA [facility] Organization Unknown Address [address] [place] [address] Phone [phone] Care Team Providers Care Consumer Loan Officer Name Role Phone Ada Camara MD AUTM [phone] Lo Hernandez AUTM [phone] Problems Description No Information Available Social [...] Information Available Procedures Date Code Description Status 01/04/2021 39046 Therapeutic Procedure, Each 15 M inutes Completed 01/04/2021 72490 Manual Therapy Each 15 Minutes C ompleted 01/01/2021 15201 Manual Therapy Each 15 Minutes C ompleted 01/01/2021 64516 Therapeutic Procedure, Each 15 M inutes Completed 12/27/2020 69204 Manual Therapy Each 15 Minutes C ompleted 12/27/2020 70005 Therapeutic Procedure, Each 15 M inutes Completed 12/24/2020 60353 Manual Therapy Each 15 Minutes C ompleted 12/24/2020 99339 Therapeutic Procedure, Each 15 M inutes Completed 12/19/2020 93245 Therapeutic Procedure, Each 15 M inutes Completed 12/19/2020 66693 Manual Therapy Each 15 Minutes C ompleted 12/12/2020 55981 Manual Therapy Each 15 Minutes C ompleted 12/12/2020 63178 Therapeutic Procedure, Each 15 M inutes Completed 12/10/2020 08343 Physical Therapy Eval - Low Comp lexity Completed 11/28/2020 59473 Office/Outpatient Established Lo w MDM 20-29 Min Completed 10/16/2020 77587 Office/Outpatient Established Mo d MDM 30-39 Min Completed 10/16/2020 15409 Inject/Drain Joint/Bursa Major C ompleted 09/17/2020 00583 Office/Outpatient Established SF MDM 10-19 Min Completed 07/16/2020 05079 Office/Outpatient Established Mo d MDM 30-39 Min [...] bursitis, right hip Office Visit 07/16/2020 1:30p [place] Bian[place] MD M51.36 Other intervertebral disc degeneration, lumbar region M54.31 Sciatica, right side Assessments Date Code Description Provider 01/04/2021 M51.36 Other intervertebral disc degene ration, lumbar region Agnieszka Scee P.T.A. 01/04/2021 M70.61 Trochanteric bursitis, right hip Agnieszka Scee P.T.A. 01/01/2021 M51.36 Other intervertebral disc degene ration, lumbar region Danamarie Ortolano, CUSTOMER RELATIONS SPECIALIST 01/01/2021 M70.61 Trochanteric bursitis, right hip Danamarie Ortolano, CUSTOMER RELATIONS SPECIALIST 12/27/2020 M51.36 Other intervertebral disc degene ration, lumbar region Shade Winter P.T. 12/27/2020 M70.61 Trochanteric bursitis, right hip Shade Winter P.T. 12/24/2020 M51.36 Other intervertebral disc degene ration, lumbar region Shade Winter P.T. 12/24/2020 M70.61 Trochanteric bursitis, right hip Shade Winter P.T. 12/19/2020 M51.36 Other intervertebral disc degene ration, lumbar region Roxanna Lea Watkins, CUSTOMER RELATIONS SPECIALIST 12/19/2020 M70.61 Trochanteric bursitis, right hip Roxanna Watkins, CUSTOMER RELATIONS SPECIALIST 12/12/2020 M51.36 Other intervertebral disc degene ration, lumbar region Agnieszka Scee P.T.A. 12/12/2020 M70.61 Trochanteric bursitis, right hip Agnieszka Scee P.T.A. 12/10/2020 M51.36 Other intervertebral disc degene ration, lumbar region Shadebassem Winter P.T. 12/10/2020 M70.61 Trochanteric bursitis, right hip Shade Winter P.T. 11/28/2020 M51.36 Other intervertebral disc degene ration, lumbar region Alexis Whiteside PA-C 11/28/2020 M70.61 Trochanteric bursitis, right hip Alexis Whiteside, ISABELLEC 10/16/2020 M51.36 Other intervertebral disc degene ration, lumbar region Alexis Whiteside PA-C 10/16/2020 M70.61 Trochanteric bursitis, right hip Alexis Whiteside, ISABELLEC 09/17/2020 M51.36 Other intervertebral disc degene ration, lumbar region Alexis Whiteside, [place] 09/17/2020 M70.61 Trochanteric bursitis, right hip Alexis Whiteside, ISABELLEC 07/16/2020 M51.36 Other intervertebral disc degene ration, lumbar region Matthew Bianchi MD 07/16/2020 M54.31 Sciatica, right side Matthew contreras MD Plan of Treatment Future Appointment(s):* 01/18/2021 8:30 am - Shade Winter P.T. at Physical Therapy * 01/14/2021 8:30 am - Agnieszka Rosales P.T.A. at Physical Therapy * 01/11/2021 8:30 am - Allison Garcia PTA at Physical Therapy * 01/29/2021 8:30 am - NICK Singh at [place] Functional Status Description No Information Available Mental Status Description No Information Available Referrals Refer to Dr Reason for Referral Status Appt Date Alexis Whiteside PA-C PT - 10 VISITS OK'D FOR LS/R HIP FROM 12/10-03/10/21, AUTH# [id number], RES# [id number]. SS Created [address] [place] [address] [address] [place], [place] [id number] [phone] Alexis Whiteside PA-C Physical Therapy Right Hip,p atient allowed eval then needs auth to PT dept, patient is going to [facility], passed to PT dept sw. Created [address] [facility] [address] [place] [address] [phone] Matthew Bianchi MD MRI APPROVED PER ARVIND CAMPOS FOR MRI OF L SPINE (11188) TO SERGEY JAUREGUI Created [address] [facility], [address] [place] [address] [phone]
--- OUTSIDE RECORDS SUMMARY | 2021-03-01 17:58 | CCD | Continuity of Care Document ---
Author Author Nanda ROSALES Organization Unknown Address [address] [place] [address] [address] [place] [address] Phone [phone] Care Team Providers Care Blending Tank Helper Name Role Phone Ada Camara MD AUTM [...] Available Procedures Date Code Description Status 01/14/2021 44117 Therapeutic Procedure, Each 15 M inutes Completed 01/14/2021 55898 Manual Therapy Each 15 Minutes C ompleted 01/11/2021 74009 Manual Therapy Each 15 Minutes C ompleted 01/11/2021 08165 Therapeutic Procedure, Each 15 M inutes Completed 01/09/2021 68413 Manual Therapy Each 15 Minutes C ompleted 01/09/2021 88850 Therapeutic Procedure, Each 15 M inutes Completed 01/04/2021 29445 Manual Therapy Each 15 Minutes C ompleted 01/04/2021 96436 Therapeutic Procedure, Each 15 M inutes Completed 01/01/2021 68088 Manual Therapy Each 15 Minutes C ompleted 01/01/2021 40011 Therapeutic Procedure, Each 15 M inutes Completed 12/27/2020 35363 Therapeutic Procedure, Each 15 M inutes Completed 12/27/2020 36352 Manual Therapy Each 15 Minutes C ompleted 12/24/2020 73445 Manual Therapy Each 15 Minutes C ompleted 12/24/2020 81052 Therapeutic Procedure, Each 15 M inutes Completed 12/19/2020 30762 Manual Therapy Each 15 Minutes C ompleted 12/19/2020 45201 Therapeutic Procedure, Each 15 M inutes Completed 12/12/2020 46474 Manual Therapy Each 15 Minutes C ompleted 12/12/2020 46494 Therapeutic Procedure, Each 15 M inutes Completed 12/10/2020 94562 Physical Therapy Eval - Low Comp lexity Completed 11/28/2020 56400 Office/Outpatient Established Lo w MDM 20-29 Min Completed 10/16/2020 31139 Office/Outpatient Established Mo d MDM 30-39 Min Completed 10/16/202015007 Inject/Drain Joint/Bursa Major C ompleted 09/17/2020 74713 Office/Outpatient Established SF MDM 10-19 Min Completed [...] disc degene ration, lumbar region Danamarie Ortolano, PAID SEARCH MARKETING STRATEGIST 01/11/2021 M70.61 Trochanteric bursitis, right hip Danamarie Ortolano, PAID SE[employer] MARKETING STRATEGIST 01/09/2021 M51.36 Other intervertebral disc degene ration, lumbar region Danamarie Ortolano, PAID SEARCH MARKETING STRATEGIST 01/09/2021 M70.61 Trochanteric bursitis, right hip Danamarie Ortolano, PAID SEARCH MARKETING STRATEGIST 01/04/2021 M51.36 Other intervertebral disc degene ration, lumbar region Agnieszka Scee P.T.A. 01/04/2021 M70.61 Trochanteric bursitis, right hip Agnieszka Scee P.T.A. 01/01/2021 M51.36 Other intervertebral disc degene ration, lumbar region Danamarie Ortolano, PAID SEARCH MARKETING STRATEGIST 01/01/2021 M70.61 Trochanteric bursitis, right hip Danamarie Ortolano, PAID SEARCH MARKETING STRATEGIST 12/27/2020 M51.36 Other intervertebral disc degene ration, lumbar region Shade Wniter P.T. 12/27/2020 M70.61 Trochanteric bursitis, right hip Shade Winter P.T. 12/24/2020 M51.36 Other intervertebral disc degene ration, lumbar region Shade Winter P.T. 12/24/2020 M70.61 Trochanteric bursitis, right hip Shade JMary Winter P.T. 12/19/2020 M51.36 Other intervertebral disc degene ration, lumbar region Roxanna Watkins, PAID SEARCH MARKETING STRATEGIST 12/19/2020 M70.61 Trochanteric bursitis, right hip Roxanna Watkins, PAID SEARCH MARKETING STRATEGIST 12/12/2020 M51.36 Other intervertebral disc degene ration, [...] 01/29/2021 8:30 am - [facility] at [place] Functional Status Description No Information Available Mental Status Description No Information Available Referrals Refer to Dr Reason for Referral Status Appt Date Alexis Whiteside PA-C PT - 10 VISITS OK'D FOR LS/R HIP FROM 12/10-03/10/21, AUTH# [id number], RES# [id number]. SS Created [facility] [address] [place] [address] [phone] Alexis Whiteside, PAAnaliC Physical Therapy Right Hip,p atient allowed eval then needs auth to PT dept, [place] [facility] [place] passed to PT dept sw. Created [address] [place] [address] [phone] Matthew Bianchi MD MRI APPROVED PER [employer] FOR MRI OF L SPINE (88894) TO SERGEY JAUREGUI Created [address] [place] [address], [address] [place] [address] [phone]"
--- OUTSIDE RECORDS SUMMARY | 2021-03-01 17:58 | CCD | Continuity of Care Document ---
Author Author Nanda [facility] Organization Unknown Address [address] [place] [address] Phone [phone] Care Team Providers Care Erisa Attorney Name Role Phone Ada Camara MD AUTM [phone] Lo Hernandez AUTM Problems Description No [...] Available Procedures Date Code Description Status 01/14/2021 97088 Therapeutic Procedure, Each 15 M inutes Completed 01/14/2021 58861 Manual Therapy Each 15 Minutes C ompleted 01/11/2021 28649 Manual Therapy Each 15 Minutes C ompleted 01/11/2021 58231 Therapeutic Procedure, Each 15 M inutes Completed 01/09/2021 02590 Manual Therapy Each 15 Minutes C ompleted 01/09/2021 94441 Therapeutic Procedure, Each 15 M inutes Completed 01/04/2021 90849 Manual Therapy Each 15 Minutes C ompleted 01/04/2021 47656 Therapeutic Procedure, Each 15 M inutes Completed 01/01/2021 98684 Manual Therapy Each 15 Minutes C ompleted 01/01/2021 29284 Therapeutic Procedure, Each 15 M inutes Completed 12/27/2020 06618 Therapeutic Procedure, Each 15 M inutes Completed 12/27/2020 17716 Manual Therapy Each 15 Minutes C ompleted 12/24/2020 33188 Manual Therapy Each 15 Minutes C ompleted 12/24/2020 15505 Therapeutic Procedure, Each 15 M inutes Completed 12/19/2020 09299 Manual Therapy Each 15 Minutes C ompleted 12/19/2020 55738 Therapeutic Procedure, Each 15 M inutes Completed 12/12/2020 95858 Manual Therapy Each 15 Minutes C ompleted 12/12/2020 48891 Therapeutic Procedure, Each 15 M inutes Completed 12/10/2020 53448 Physical Therapy Eval - Low Comp lexity Completed 11/28/2020 18127 Office/Outpatient Established Lo w MDM 20-29 Min Completed 10/16/2020 25616 Office/Outpatient Established Mo d MDM 30-39 Min Completed 10/16/2020 Inject/Drain Joint/Bursa Major C ompleted 09/17/2020 12780 Office/Outpatient Established SF MDM 10-19 Min Completed [...] disc degene ration, lumbar region Danamarie Ortolano, COREROOM FOUNDRY LABORER 01/11/2021 M70.61 Trochanteric bursitis, right hip Danamarie Ortolano, COREROOM FOUNDRY LABORER 01/09/2021 M51.36 Other intervertebral disc degene ration, lumbar region Danamarie Ortolano, COREROOM FOUNDRY LABORER 01/09/2021 M70.61 Trochanteric bursitis, right hip Danamarie Ortolano, COREROOM FOUNDRY LABORER 01/04/2021 M51.36 Other intervertebral disc degene ration, lumbar region Agnieszka Scee P.T.A. 01/04/2021 M70.61 Trochanteric bursitis, right hip Agnieszka Scee P.T.A. 01/01/2021 M51.36 Other intervertebral disc degene ration, lumbar region Danamarie Ortolano, COREROOM FOUNDRY LABORER 01/01/2021 M70.61 Trochanteric bursitis, right hip Danamarie Ortolano, COREROOM FOUNDRY LABORER 12/27/2020 M51.36 Other intervertebral disc degene ration, lumbar region Shade Winter P.T. 12/27/2020 M70.61 Trochanteric bursitis, right hip Shade Winter P.T. 12/24/2020 M51.36 Other intervertebral disc degene ration, lumbar region Shade Flora Winter P.T. 12/24/2020 M70.61 Trochanteric bursitis, right hip Shade Flora Winter P.T. 12/19/2020 M51.36 Other intervertebral disc degene ration, lumbar region Roxanna Watkins, COREROOM FOUNDRY LABORER 12/19/2020 M70.61 Trochanteric bursitis, right hip Roxanna Watkins, COREROOM FOUNDRY LABORER 12/12/2020 M51.36 Other intervertebral disc degene ration, [...] 01/29/2021 8:30 am - [facility] at [place] Functional Status Description No Information Available Mental Status Description No Information Available Referrals Refer to Dr Reason for Referral Status Appt Date Alexis Whiteside PA-C PT - 10 VISITS OK'D FOR LS/R HIP FROM 12/10-03/10/21, AUTH# [id number], RES# [id number]. SS Created [address] [place] [address] [place] [address] [phone] Alexis Whiteside, PA-C Physical Therapy Right Hip,p atient allowed eval then needs auth to PT dept, patient is going to [facility] [place], passed to PT dept sw. Created [address] [place] [address] [phone] Matthew Bianchi MD MRI APPROVED PER [employer] FOR MRI OF L SPINE (75425) TO SERGEY JAUREGUI Created [address] [place] [address], [address] [place] [address] [phone]"
--- OUTSIDE RECORDS SUMMARY | 2021-03-01 17:58 | CCD ---
Author Organization Unknown Address [address] [place] [address] Phone [phone] Care Team Providers Care Regional Office Coordinator Name Role Phone [facility] 212 [phone] [facility] 2 [phone] [facility] 2 [phone] [facility] 2 [phone] Allergies Code Code System Name Reaction Severity Status Onset Penicillin Active 3 Penicillins Facial Swelling Mild to Moderate Activ e Notes: PCN - Reaction: facial swelling Some allergies listed in Documents: #[id number], #[id number] could not be added to this patient's chart. Please review these documents and add these allergies to the patient's chart manually as needed. 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 History Umbilical Hernia [...] Notes: Some problems listed in Documents : #[id number], #[id number] could not be added to this patient's [...] not available 01/03/2021 MAMMO, Screening, Digital, Bilateral Inf ormation not available Results Lab Results Date Name Specimen Result Interpretation Description Value Range Status Address 10/02/2020 CBC W/ Auto Diff Blood venous High White Blood C ount 11.3 10 4.0-10.0 10 [facility]: 83 0 [facility] Blood venous Normal Red Blood Count 4.73 10 4.00- 5.40 10 [facility]: 830 [facility] Blood venous Normal Hemoglobin 15.1 g/dL 12.0-15. 5 g/dL [facility]: 830 [facility] Blood venous Normal Hematocrit 46.1 % 36.0-47.0 % [facility]: 830 [facility] Blood venous High Mean Corpuscular Volume 97.5 fL 80.0-96.0 fL [facility]: 830 [facility] Blood venous Normal Mean Corpuscular Hemoglob in 31.9 pg 27.0-33.0 pg [facility]: 830 [facility] Blood venous Normal Mean Corpuscular HGB Conc 32.8 g/dL 32.0-36.5 g/dL [facility]: 830 [facility] Blood venous Normal Red Cell Distribution Wid th 13.5 % 11.5-14.5 % [facility]: 830 [facility] Blood venous High Platelet Count, Automated 459 10 150-450 10 [facility]: 830 [facility] Blood venous Normal Neutrophils % 62.6 % 36.0-66. 0 % [facility]: 830 [facility] Blood venous Normal Lymph % 26.7 % 24.0-44.0 % [facility]: 830 [facility] Blood venous Normal Evans % 7.7 % 2.0-8.0 % [facility]: 830 [facility] Blood venous Normal Eos % 1.9 % 0.0-3.0 % [facility]: [address] [place] [address] Blood venous Normal Baso % 0.7 % 0.0-1.0 % [facility]: [address] [place] [address] Blood venous Normal Immature Granulocyte % 0.4 % 0-3.0 % [facility]: [address] [place] [address] Blood venous Normal Nucleated Red Blood Cell % 0. 0 % 0-0 % [facility]: [address] [place] [address] Blood venous Normal Neutrophils # 7.1 10 1.5-8.5 10 [facility]: [address] [place] [address] Blood venous Normal Lymph # 3.0 10 1.5-5.0 10 [facility]: [address] [place] [address] Blood venous High Evans # 0.9 10 0.0-0.8 10 [facility]: [address] [place] [address] Blood venous Normal Eos # 0.2 10 0.0-0.5 10 [facility]: [address] [place] [address] Blood venous Normal Baso # 0.1 10 0.0-0.2 10 [facility]: [address] [place] [address] 10/02/2020 HbA1C (Hemoglobin a1C), Blood Blood venous Normal Hemoglobin a1C 6.1 % [facility]: [address] [place] [address] Blood venous High Estimated Average Glucose 128 mg/dL 60-110 mg/dL [facility]: [address] [place] [address] 10/02/2020 CMP, Serum or Plasma Blood venous High Glu cose, Fasting 119 mg/dL 70-100 mg/dL [facility] nter: [address] [place] [address] Blood venous Normal Blood Urea Nitrogen 8 mg/dL 7 -18 mg/dL [facility]: [address] [place] [address] Blood venous Normal Creatinine for GFR 0.67 mg/dL 0.55-1.30 mg/dL [facility]: [address] [place] [address] Blood venous Normal Glomerular Filtration Rate > 60.0 >58 [facility]: 830 [facility] Blood venous Normal Sodium Level 140 mEq/L 136-14 5 mEq/L [facility]: 0 [facility] Blood venous Normal Potassium Serum 4.3 mEq/L 3.5 -5.1 mEq/L [facility]: [address] [place] [address] Blood venous Normal Chloride Level 107 mEq/L 98-1 07 mEq/L [facility]: [address] [place] [address] Blood venous Normal Carbon Dioxide Level 26 mEq/L 21-32 mEq/L [facility]: [address] [place] [address] Blood venous Low Anion Gap 7 mEq/L 8-16 mEq/L [facility]: [address] [place] [address] Blood venous Normal Calcium Level 8.9 mg/dL 8.5-1 0.1 mg/dL [facility]: [address] [place] [address] Blood venous Normal AST/SGOT 10 U/L 7-37 U/L [facility]: [address] [place] [address] Blood venous Normal ALT/SGPT 20 U/L 12-78 U/L [facility]: [address] [place] [address] Blood venous High Alkaline Phosphatase 131 U/L 45-117 U/L [facility]: [address] [place] [address] Blood venous Normal Bilirubin,total 0.3 mg/dL 0.2 -1.0 mg/dL [facility]: [address] [place] [address] Blood venous Normal Total Protein 7.2 gm/dL 6.4-8 .2 gm/dL [facility]: [address] [place] [address] Blood venous Normal Albumin 3.5 gm/dL 3.2-5.2 gm/ dL [facility]: [address] [place] [address] Blood venous Low Albumin/globulin Ratio 0.9 1.2-2.2 [facility]: [address] [place] [address] 10/02/2020 Lipid Panel, Blood Blood venous High Trigl ycerides Level 309 mg/dL <150 mg/dL [facility] nter: [address] [place], [place] [address] Blood venous Normal Cholesterol Level 144 mg/dL < 200 mg/dL [facility]: 830 [facility] Blood venous Low HDL Cholesterol 35 mg/dL >40 mg/dL [facility]: 830 [facility] Blood venous Normal LDL Cholesterol 47 mg/dL <100 mg/dL [facility]: 830 [facility] Blood venous Normal Non-hdl-c 109 mg/dL [facility]: 8[address] [facility] Blood venous Normal Cholesterol Risk Ratio 4.114 <5 [facility]: 830 [facility] 08/20/2020 SARS CoV 2 RdRp Gene, QL Probe, Respiratory Spec imen Nasopharyngeal Normal Sars-cov-2 negative negative Final [facility] Medical: [address] [facility] 05/23/2020 CBC W/ Auto Diff Blood venous High White Blood C ount 10.6 10 4.0-10.0 10 [facility]: 83 0 [facility] Blood venous Normal Red Blood Count 4.71 10 4.00- 5.40 10 [facility]: 830 [facility] Blood venous Normal Hemoglobin 14.7 g/dL 12.0-15. 5 g/dL [facility]: 830 [facility] Blood venous Normal Hematocrit 44.8 % 36.0-47.0 % [facility]: 830 [facility] Blood venous Normal Mean Corpuscular Volume 95.1 fL 80.0-96.0 fL [facility]: 830 [facility] Blood venous Normal Mean Corpuscular Hemoglob in 31.2 pg 27.0-33.0 pg [facility]: 830 [facility] Blood venous Normal Mean Corpuscular HGB Conc 32.8 g/dL 32.0-36.5 g/dL [facility]: 830 [facility] Blood venous Normal Red Cell Distribution Wid th 13.4 % 11.5-14.5 % [facility]: 830 [facility] Blood venous Normal Platelet Count, Automated 408 10 150-450 10 [facility]: [address] [place] [address] Blood venous Normal Neutrophils % 65.7 % 36.0-66. 0 % [facility]: [address] [place] [address] Blood venous Normal Lymph % 24.4 % 24.0-44.0 % [facility]: [address] [place] [address] Blood venous High Evans % 7.5 % 0.0-5.0 % [facility]: [address] [place] [address] Blood venous Normal Eos % 1.4 % 0.0-3.0 % [facility]: [address] [place] [address] Blood venous Normal Baso % 0.5 % 0.0-1.0 % [facility]: [address] [place] [address] Blood venous Normal Immature Granulocyte % 0.5 % 0-3.0 % [facility]: [address] [place] [address] Blood venous Normal Nucleated Red Blood Cell % 0. 0 % 0-0 % [facility]: [address] [place] [address] Blood venous Normal Neutrophils # 7.0 10 1.5-8.5 10 [facility]: [address] [place] [address] Blood venous Normal Lymph # 2.6 10 1.5-5.0 10 [facility]: [address] [place] [address] Blood venous Normal Evans # 0.8 10 0.0-0.8 10 [facility]: [address] [place] [address] Blood venous Normal Eos # 0.2 10 0.0-0.5 10 [facility]: [address] [place] [address] Blood venous Normal Baso # 0.1 10 0.0-0.2 10 [facility]: [address] [place] [address] 05/23/2020 CMP, Serum or Plasma Blood capillary High Glucose, Fasting 108 mg/dL 70-100 mg/dL [facility] nter: [address] [place] [address] Blood capillary Normal Blood Urea Nitrogen 11 mg/ dL 7-18 mg/dL [facility]: [address] [place], [place] [address] Blood capillary Normal Creatinine for GFR 0. 72 mg/dL 0.55-1.30 mg/dL [facility]: 830 [facility] Blood capillary Normal Glomerular Filtration Rate > 60.0 >58 [facility]: 8[address] [facility] Blood capillary Normal Sodium Level 139 mEq/L 136 -145 mEq/L [facility]: [address] [facility] Blood capillary Normal Potassium Serum 4.4 mEq/L 3.5-5.1 mEq/L [facility]: 8[address] [facility] Blood capillary Normal Chloride Level 107 mEq/L 9 8-107 mEq/L [facility]: [address] [facility] Blood capillary Normal Carbon Dioxide Level 25 mE q/L 21-32 mEq/L [facility]: [address] [facility] Blood capillary Low Anion Gap 7 mEq/L 8-16 mEq /L [facility]: 8[address] [facility] Blood capillary Normal Calcium Level 8.8 mg/dL 8. 5-10.1 mg/dL [facility]: 830 [facility] Blood capillary Normal AST/SGOT 9 U/L 7-37 U/L [facility]: [address] [facility] Blood capillary Normal ALT/SGPT 19 U/L 12-78 U/L [facility]: 830 [facility] Blood capillary High Alkaline Phosphatase 118 U /L 45-117 U/L [facility]: 8[address] [facility] Blood capillary Normal Bilirubin,total 0.4 mg/dL 0.2-1.0 mg/dL [facility]: [address] [facility] Blood capillary Normal Total Protein 6.9 gm/dL 6. 4-8.2 gm/dL [facility]: 0 [facility] Blood capillary Normal Albumin 3.5 gm/dL 3.2-5.2 gm/dL [facility]: 0 [facility] Blood capillary Low Albumin/globulin Ratio 1.0 1.2-2.2 [facility]: [address] [place] [address] 05/23/2020 Lipid Panel, Blood Blood venous High Trigl ycerides Level 228 mg/dL <150 mg/dL [facility] nter: [address] [place] [address] Blood venous Normal Cholesterol Level 155 mg/dL < 200 mg/dL [facility]: [address] [place] [address] Blood venous Low HDL Cholesterol 37 mg/dL >40 mg/dL [facility]: [address] [place] [address] Blood venous Normal LDL Cholesterol 72 mg/dL <100 mg/dL [facility]: [address] [place] [address] Blood venous Normal Non-hdl-c 118 mg/dL [facility]: [address] [place] [address] Blood venous Normal Cholesterol Risk Ratio 4.189 <5 [facility]: [address] [place] [address] 05/23/2020 HbA1C (Hemoglobin a1C), Blood Blood venous Normal Hemoglobin a1C 6.1 % [facility]: [address] [place] [address] Blood venous High Estimated Average Glucose 128 mg/dL 60-110 mg/dL [facility]: [address] [place] [address] 05/03/2020 SARS CoV 2 RdRp Gene, QL Probe, Respiratory Spec imen Nasopharyngeal Normal Sars-cov-2 negative negative Final [facility] Medical: [address] [facility] 02/23/2020 CBC W/ Auto Diff High White Blood Count 10.6 10 4.0-10.0 10 [facility]: [address] [place] [address] Normal Red Blood Count 4.79 10 4.00-5.40 10 [facility]: [address] [place] [address] Normal Hemoglobin 14.9 g/dL 12.0-15.5 g/dL [facility]: [address] [place] [address] Normal Hematocrit 46.0 % 36.0-47.0 % [facility]: [address] [place] [address] Normal Mean Corpuscular Volume 96.0 fL 80.0 -96.0 fL [facility]: [address] [place] [address] Normal Mean Corpuscular Hemoglobin 31.1 pg 27.0-33.0 pg Final [facility]: [address] [facility] Normal Mean Corpuscular HGB Conc 32.4 g/dL 32.0-36.5 g/dL Final [facility]: [address] [facility] Normal Red Cell Distribution Width 13.7 % 1 1.5-14.5 % [facility]: [address] [facility] Normal Platelet Count, Automated 390 10 150 -450 10 [facility]: [address] [facility] Normal Neutrophils % 62.1 % 36.0-66.0 % [facility]: [address] [facility] Normal Lymph % 27.1 % 24.0-44.0 % Final [facility]: [address] [facility] High Evans % 7.5 % 0.0-5.0 % Final [facility]: [address] [facility] Normal Eos % 2.1 % 0.0-3.0 % [facility]: [address] [facility] Normal Baso % 0.6 % 0.0-1.0 % Final [facility]: [address] [facility] Normal Immature Granulocyte % 0.6 % 0-3.0 % [facility]: 8[address] [facility] Normal Nucleated Red Blood Cell % 0.0 % 0- 0 % [facility]: [address] [facility] Normal Neutrophils # 6.6 10 1.5-8.5 10 [facility]: [address] [facility] Normal Lymph # 2.9 10 1.5-5.0 10 Final [facility]: [address] [facility] Normal Evans # 0.8 10 0.0-0.8 10 [facility]: [address] [facility] Normal Eos # 0.2 10 0.0-0.5 10 [facility]: [address] [facility] Normal Baso # 0.1 10 0.0-0.2 10 [facility]: [address] [facility] 02/23/2020 CMP, Serum or Plasma Normal Glucose, Fastin g 96 mg/dL 70-100 mg/dL [facility]: 83 0 [facility] Normal Blood Urea Nitrogen 11 mg/dL 7-18 mg /dL [facility]: 8[address] [facility] Normal Creatinine for GFR 0.74 mg/dL 0.55-1 .30 mg/dL [facility]: 8[address] [facility] Normal Glomerular Filtration Rate > 60.0 >5 8 [facility]: 8[address] [facility] Normal Sodium Level 140 mEq/L 136-145 mEq/L [facility]: [address] [facility] Normal Potassium Serum 4.5 mEq/L 3.5-5.1 mE q/L [facility]: [address] [facility] High Chloride Level 108 mEq/L 98-107 mEq/ L [facility]: [address] [facility] Normal Carbon Dioxide Level 24 mEq/L 21-32 mEq/L [facility]: [address] [facility] Normal Anion Gap 8 mEq/L 8-16 mEq/L [facility]: [address] [facility] Normal Calcium Level 9.0 mg/dL 8.5-10.1 mg/ dL [facility]: [address] [facility] Normal AST/SGOT 9 U/L 7-37 U/L [facility]: [address] [facility] Normal ALT/SGPT 20 U/L 12-78 U/L [facility]: [address] [facility] High Alkaline Phosphatase 128 U/L 45-117 U/L [facility]: [address] [facility] Normal Bilirubin,total 0.4 mg/dL 0.2-1.0 mg /dL [facility]: [address] [facility] Normal Total Protein 7.0 gm/dL 6.4-8.2 gm/d L [facility]: [address] [facility] Normal Albumin 3.5 gm/dL 3.2-5.2 gm/dL Marilyn l [facility]: [address] [facility] Low Albumin/globulin Ratio 1.0 1.2-2. 2 [facility]: [address] [facility] 02/23/2020 Lipid Panel, Blood High Triglycerides Lev el 197 mg/dL <150 mg/dL Final [facility]: 83 0 [facility] Normal Cholesterol Level 150 mg/dL <200 mg/ dL [facility]: [address] [facility] Low HDL Cholesterol 34 mg/dL >40 mg/dL F inal [facility]: [address] [facility] Normal LDL Cholesterol 77 mg/dL <100 mg/dL [facility]: 0 [facility] Normal Non-hdl-c 116 mg/dL [facility]: [address] [facility] Normal Cholesterol Risk Ratio 4.411 <5 [facility]: [address] [facility] 02/23/2020 Vitamin D, 25-Hydroxy, Total, Serum Low Total 25(Oh) Vitamin D 27.8 NG/mL 30.0-100.0 NG/mL [facility] nter: 0 [facility] 02/23/2020 HbA1C (Hemoglobin a1C), Blood Normal Hemogl obin a1C 6.0 % [facility]: 0 [facility] High Estimated Average Glucose 126 mg/dL 60-110 mg/dL [facility]: [address] [facility] Past Encounters 01/03/2021 Body Mass Index 40+ - Severely Obese; Hypertensive Disorder; Chronic Low Back Pain; Screening Mammography of Bilateral Breasts; Decreased Hearing; Prediabetes; Patient Asked to Attend KENDELL Hanson-BC: [address] [place] [address], Ph. 12/11/2020 Elevated Blood-pressure Reading without Diagnosis of Hypertension; Counseling Kevin Us, RPA-C: [address] [facility], [facility] [address] [address], Ph. 11/29/2020 Nicotine Dependence with Current Use; Patient Asked to Attend; Hyperlipidemia; Prediabetes [facility]: [address] [place] [address], Ph. 11/22/2020 Elevated Blood-pressure Reading without Diagnosis of Hypertension; Severe Obesity; Body Mass Index 40+ - Severely Obese; Nicotine Dependence with Current Use [facility]: [address] [place] [address], Ph. 10/10/2020 Nicotine Dependence with Current Use; Patient Asked to Attend; Obesity [facility]: [address] [place] [address], Ph. 10/02/2020 [facility]: [address] [place] [address], Ph. 08/20/2020 Exposure to SARS-CoV-2 Jeanmarie Fleming MD: [address] [place] [address], Ph. 05/31/2020 Nicotine Dependence with Current Use; Obesity; Prediabetes; Patient Asked to Attend [facility]: [address] [place] [phone], Ph. 05/23/2020 Hyperlipidemia [facility]: [address] [place] [address], Ph. 05/03/2020 Exposure to SARS-CoV-2 Jeanmarie Fleming MD: [address] [place] [address], Ph. 03/01/2020 Patient Asked to Attend; Mixed Hyperlipidemia; Hypertensive Disorder; Lumbosacral Radiculopathy; Nicotine Dependence [facility]: [address] [place] [address], Ph. Social History Tobacco Smoking Status Heavy Tobacco Smoker (1/2 pack per a day) Vaccine List Notes: Pt declined flu shot Plan of [...] Surgeries None recorded. Imaging None recorded. Vitals 01/03/2021 03:40PM ESTABLISHED [id number] Height Weight BMI Blood Pressure 66 in 265 lbs 16 oz 42.9 kg/m2 129/87 mm[Hg] 12/11/2020 12:00PM SAME DAY 20 Height Weight BMI Blood Pressure 66 in 261 lbs 9.6 oz 42.2 kg/m2 (1) 136/82 m m[Hg] (2) 130/80 mm[Hg] 11/29/2020 09:20AM TELEHEALTH 20 Height 66 in 11/22/2020 11:40AM ESTABLISHED [id number] Height Weight BMI Blood Pressure 66 in 271 lbs 4 oz 43.8 kg/m2 121/80 mm[Hg] 10/10/2020 09:40AM TELEHEALTH 20 Height 66 in 10/02/2020 11:00AM NURSE LAB COLLECTION Height 66 in 05/31/2020 11:00AM ESTABLISHED [id number] Height Weight BMI Blood Pressure 66 in 258 lbs 16 oz 41.8 kg/m2 132/87 mm[Hg] 03/01/2020 11:20AM ESTABLISHED [id number] Height Weight BMI Blood Pressure 66 in [...]
--- OUTSIDE RECORDS SUMMARY | 2021-03-01 17:58 | CCD ---
Author Organization Unknown Address [address] [place] [address] Phone [phone] Care Team Providers Care Well Shooter Name Role Phone [facility] [phone] [facility] 2 [phone] 2 [phone] [facility] 2 [phone] Allergies Code Code System Name Reaction Severity Status Onset Penicillin Active 3 Penicillins Facial Swelling Mild to Moderate Activ e Notes: PCN - Reaction: facial swelling Some allergies listed in Documents: #[id number], #[id number] could not be added to this patient's [...] Bowel Syndrome with Diarrhea Active 9 History [place] Syndrome Active 08/12/2018 History Umbilical Hernia [...] Notes: Some problems listed in Documents : #[id number], #[id number] could not be added to this patient's [...] Blood C ount 11.3 10 4.0-10.0 10 [facility]: 83 0 [facility] Blood venous Normal Red Blood Count 4.73 10 4.00- 5.40 10 [facility]: 830 [facility] Blood venous Normal Hemoglobin 15.1 g/dL 12.0-15. 5 g/dL [facility]: 830 [facility] Blood venous Normal Hematocrit 46.1 % 36.0-47.0 % [facility]: 830 [facility] Blood venous High Mean Corpuscular Volume 97.5 fL 80.0-96.0 fL [facility]: 830 [facility] Blood venous Normal Mean Corpuscular Hemoglob in 31.9 pg 27.0-33.0 pg [facility]: 830 [facility] Blood venous Normal Mean Corpuscular HGB Conc 32.8 g/dL 32.0-36.5 g/dL [facility]: 830 [facility] Blood venous Normal Red Cell Distribution Wid th 13.5 % 11.5-14.5 % [facility]: 830 [facility] Blood venous High Platelet Count, Automated 459 10 150-450 10 [facility]: 830 [facility] Blood venous Normal Neutrophils % 62.6 % 36.0-66. 0 % [facility]: 830 [facility] Blood venous Normal Lymph % 26.7 % 24.0-44.0 % [facility]: 830 [facility] Blood venous Normal [place] % 7.7 % 2.0-8.0 % [facility]: 830 [facility] Blood venous Normal Eos % 1.9 % 0.0-3.0 % [facility]: [address] [place] [address] Blood venous Normal Baso % 0.7 % 0.0-1.0 % [facility]: [address] [place] [address] Blood venous Normal Immature Granulocyte % 0.4 % 0-3.0 % [facility]: [address] [place] [address] Blood venous Normal Nucleated Red Blood Cell % 0. 0 % 0-0 % [facility]: [address] [place] [address] Blood venous Normal Neutrophils # 7.1 10 1.5-8.5 10 [facility]: [address] [place] [address] Blood venous Normal Lymph # 3.0 10 1.5-5.0 10 [facility]: [address] [place] [address] Blood venous High [place] # 0.9 10 0.0-0.8 10 [facility]: [address] [place] [address] Blood venous Normal Eos # 0.2 10 0.0-0.5 10 [facility]: [address] [place] [address] Blood venous Normal Baso # 0.1 10 0.0-0.2 10 [facility]: [address] [place] [address] 10/02/2020 HbA1C (Hemoglobin a1C), Blood Blood venous Normal Hemoglobin a1C 6.1 % [facility]: [address] [place] [address] Blood venous High Estimated Average Glucose 128 mg/dL 60-110 mg/dL [facility]: [address] [place] [address] 10/02/2020 CMP, Serum or Plasma Blood venous High Glu cose, Fasting 119 mg/dL 70-100 mg/dL [facility] nter: [address] [place] [address] Blood venous Normal Blood Urea Nitrogen 8 mg/dL 7 -18 mg/dL [facility]: [address] [place] [address] Blood venous Normal Creatinine for GFR 0.67 mg/dL 0.55-1.30 mg/dL [facility]: [address] [place] [address] Blood venous Normal Glomerular Filtration Rate > 60.0 >58 [facility]: 830 [facility] Blood venous Normal Sodium Level 140 mEq/L 136-14 5 mEq/L [facility]: 0 [facility] Blood venous Normal Potassium Serum 4.3 mEq/L 3.5 -5.1 mEq/L [facility]: [address] [place] [address] Blood venous Normal Chloride Level 107 mEq/L 98-1 07 mEq/L [facility]: [address] [place] [address] Blood venous Normal Carbon Dioxide Level 26 mEq/L 21-32 mEq/L [facility]: [address] [place] [address] Blood venous Low Anion Gap 7 mEq/L 8-16 mEq/L [facility]: [address] [place] [address] Blood venous Normal Calcium Level 8.9 mg/dL 8.5-1 0.1 mg/dL [facility]: [address] [place] [address] Blood venous Normal AST/SGOT 10 U/L 7-37 U/L [facility]: [address] [place] [address] Blood venous Normal ALT/SGPT 20 U/L 12-78 U/L [facility]: [address] [place] [address] Blood venous High Alkaline Phosphatase 131 U/L 45-117 U/L [facility]: [address] [place] [address] Blood venous Normal Bilirubin,total 0.3 mg/dL 0.2 -1.0 mg/dL [facility]: [address] [place] [address] Blood venous Normal Total Protein 7.2 gm/dL 6.4-8 .2 gm/dL [facility]: [address] [place] [address] Blood venous Normal Albumin 3.5 gm/dL 3.2-5.2 gm/ dL [facility]: [address] [place] [address] Blood venous Low Albumin/globulin Ratio 0.9 1.2-2.2 [facility]: [address] [place] [address] 10/02/2020 Lipid Panel, Blood Blood venous High Trigl ycerides Level 309 mg/dL <150 mg/dL [facility] nter: [address] [place], [place] [address] Blood venous Normal Cholesterol Level 144 mg/dL < 200 mg/dL [facility]: 830 [facility] Blood venous Low HDL Cholesterol 35 mg/dL >40 mg/dL [facility]: 830 [facility] Blood venous Normal LDL Cholesterol 47 mg/dL <100 mg/dL [facility]: 830 [facility] Blood venous Normal Non-hdl-c 109 mg/dL [facility]: 830 [facility] Blood venous Normal Cholesterol Risk Ratio 4.114 <5 [facility]: 830 [facility] 08/20/2020 SARS CoV 2 RdRp Gene, QL Probe, Respiratory Spec imen Nasopharyngeal Normal Sars-cov-2 negative negative Final [facility]: [address] [facility] 05/23/2020 CBC W/ Auto Diff Blood venous High White Blood C ount 10.6 10 4.0-10.0 10 [facility]: 83 0 [facility] Blood venous Normal Red Blood Count 4.71 10 4.00- 5.40 10 [facility]: 830 [facility] Blood venous Normal Hemoglobin 14.7 g/dL 12.0-15. 5 g/dL [facility]: 830 [facility] Blood venous Normal Hematocrit 44.8 % 36.0-47.0 % [facility]: 830 [facility] Blood venous Normal Mean Corpuscular Volume 95.1 fL 80.0-96.0 fL [facility]: 830 [facility] Blood venous Normal Mean Corpuscular Hemoglob in 31.2 pg 27.0-33.0 pg [facility]: 830 [facility] Blood venous Normal Mean Corpuscular HGB Conc 32.8 g/dL 32.0-36.5 g/dL [facility]: 830 [facility] Blood venous Normal Red Cell Distribution Wid th 13.4 % 11.5-14.5 % [facility]: 830 [facility] Blood venous Normal Platelet Count, Automated 408 10 150-450 10 [facility]: [address] [place] [address] Blood venous Normal Neutrophils % 65.7 % 36.0-66. 0 % [facility]: [address] [place] [address] Blood venous Normal Lymph % 24.4 % 24.0-44.0 % [facility]: [address] [place] [address] Blood venous High [place] % 7.5 % 0.0-5.0 % [facility]: [address] [place] [address] Blood venous Normal Eos % 1.4 % 0.0-3.0 % [facility]: [address] [place] [address] Blood venous Normal Baso % 0.5 % 0.0-1.0 % [facility]: [address] [place] [address] Blood venous Normal Immature Granulocyte % 0.5 % 0-3.0 % [facility]: [address] [place] [address] Blood venous Normal Nucleated Red Blood Cell % 0. 0 % 0-0 % [facility]: [address] [place] [address] Blood venous Normal Neutrophils # 7.0 10 1.5-8.5 10 [facility]: [address] [place] [address] Blood venous Normal Lymph # 2.6 10 1.5-5.0 10 [facility]: [address] [place] [address] Blood venous Normal [place] # 0.8 10 0.0-0.8 10 [facility]: [address] [place] [address] Blood venous Normal Eos # 0.2 10 0.0-0.5 10 [facility]: [address] [place] [address] Blood venous Normal Baso # 0.1 10 0.0-0.2 10 [facility]: [address] [place] [address] 05/23/2020 CMP, Serum or Plasma Blood capillary High Glucose, Fasting 108 mg/dL 70-100 mg/dL [facility] nter: [address] [place] [address] Blood capillary Normal Blood Urea Nitrogen 11 mg/ dL 7-18 mg/dL [facility]: [address] [place], [place] [id number] Blood capillary Normal Creatinine for GFR 0. 72 mg/dL 0.55-1.30 mg/dL [facility]: 830 [facility] Blood capillary Normal Glomerular Filtration Rate > 60.0 >58 [facility]: 830 [facility] Blood capillary Normal Sodium Level 139 mEq/L 136 -145 mEq/L [facility]: 830 [facility] Blood capillary Normal Potassium Serum 4.4 mEq/L 3.5-5.1 mEq/L [facility]: 830 [facility] Blood capillary Normal Chloride Level 107 mEq/L 9 8-107 mEq/L [facility]: 830 [facility] Blood capillary Normal Carbon Dioxide Level 25 mE q/L 21-32 mEq/L [facility]: 830 [facility] Blood capillary Low Anion Gap 7 mEq/L 8-16 mEq /L [facility]: 830 [facility] Blood capillary Normal Calcium Level 8.8 mg/dL 8. 5-10.1 mg/dL [facility]: 830 [facility] Blood capillary Normal AST/SGOT 9 U/L 7-37 U/L [facility]: 830 [facility] Blood capillary Normal ALT/SGPT 19 U/L 12-78 U/L [facility]: 830 [facility] Blood capillary High Alkaline Phosphatase 118 U /L 45-117 U/L [facility]: 830 [facility] Blood capillary Normal Bilirubin,total 0.4 mg/dL 0.2-1.0 mg/dL [facility]: 830 [facility] Blood capillary Normal Total Protein 6.9 gm/dL 6. 4-8.2 gm/dL [facility]: 0 [facility] Blood capillary Normal Albumin 3.5 gm/dL 3.2-5.2 gm/dL [facility]: 0 [facility] Blood capillary Low Albumin/globulin Ratio 1.0 1.2-2.2 [facility]: [address] [place] [address] 05/23/2020 Lipid Panel, Blood Blood venous High Trigl ycerides Level 228 mg/dL <150 mg/dL [facility] nter: [address] [place] [address] Blood venous Normal Cholesterol Level 155 mg/dL < 200 mg/dL [facility]: [address] [place] [address] Blood venous Low HDL Cholesterol 37 mg/dL >40 mg/dL [facility]: [address] [place] [address] Blood venous Normal LDL Cholesterol 72 mg/dL <100 mg/dL [facility]: [address] [place] [address] Blood venous Normal Non-hdl-c 118 mg/dL [facility]: [address] [place] [address] Blood venous Normal Cholesterol Risk Ratio 4.189 <5 [facility]: [address] [place] [address] 05/23/2020 HbA1C (Hemoglobin a1C), Blood Blood venous Normal Hemoglobin a1C 6.1 % [facility]: [address] [place] [address] Blood venous High Estimated Average Glucose 128 mg/dL 60-110 mg/dL [facility]: [address] [place] [address] 05/03/2020 SARS CoV 2 RdRp Gene, QL Probe, Respiratory Spec imen Nasopharyngeal Normal Sars-cov-2 negative negative Final [facility]: [address] [facility] 02/23/2020 CBC W/ Auto Diff High White Blood Count 10.6 10 4.0-10.0 10 [facility]: [address] [place] [address] Normal Red Blood Count 4.79 10 4.00-5.40 10 [facility]: [address] [place] [address] Normal Hemoglobin 14.9 g/dL 12.0-15.5 g/dL [facility]: [address] [place] [address] Normal Hematocrit 46.0 % 36.0-47.0 % [facility]: [address] [place] [address] Normal Mean Corpuscular Volume 96.0 fL 80.0 -96.0 fL [facility]: [address] [place] [address] Normal Mean Corpuscular Hemoglobin 31.1 pg 27.0-33.0 pg [facility]: [address] [facility] Normal Mean Corpuscular HGB Conc 32.4 g/dL 32.0-36.5 g/dL [facility]: [address] [facility] Normal Red Cell Distribution Width 13.7 % 1 1.5-14.5 % [facility]: 830 [facility] Normal Platelet Count, Automated 390 10 150 -450 10 [facility]: [address] [facility] Normal Neutrophils % 62.1 % 36.0-66.0 % [facility]: 8[address] [facility] Normal Lymph % 27.1 % 24.0-44.0 % [facility]: [address] [facility] High [place] % 7.5 % 0.0-5.0 % Final [facility]: [address] [facility] Normal Eos % 2.1 % 0.0-3.0 % [facility]: 8[address] [facility] Normal Baso % 0.6 % 0.0-1.0 % Final [facility]: 830 [facility] Normal Immature Granulocyte % 0.6 % 0-3.0 % [facility]: 830 [facility] Normal Nucleated Red Blood Cell % 0.0 % 0- 0 % [facility]: 830 [facility] Normal Neutrophils # 6.6 10 1.5-8.5 10 [facility]: 8[address] [facility] Normal Lymph # 2.9 10 1.5-5.0 10 Final [facility]: [address] [facility] Normal [place] # 0.8 10 0.0-0.8 10 [facility]: [address] [facility] Normal Eos # 0.2 10 0.0-0.5 10 [facility]: 8[address] [facility] Normal Baso # 0.1 10 0.0-0.2 10 [facility]: 830 [facility] 02/23/2020 CMP, Serum or Plasma Normal Glucose, Fastin g 96 mg/dL 70-100 mg/dL [facility]: 83 0 [facility] Normal Blood Urea Nitrogen 11 mg/dL 7-18 mg /dL [facility]: 830 [facility] Normal Creatinine for GFR 0.74 mg/dL 0.55-1 .30 mg/dL [facility]: 830 [facility] Normal Glomerular Filtration Rate > 60.0 >5 8 [facility]: 8[address] [facility] Normal Sodium Level 140 mEq/L 136-145 mEq/L [facility]: [address] [facility] Normal Potassium Serum 4.5 mEq/L 3.5-5.1 mE q/L [facility]: [address] [facility] High Chloride Level 108 mEq/L 98-107 mEq/ L [facility]: 830 [facility] Normal Carbon Dioxide Level 24 mEq/L 21-32 mEq/L [facility]: [address] [facility] Normal Anion Gap 8 mEq/L 8-16 mEq/L [facility]: 8[address] [facility] Normal Calcium Level 9.0 mg/dL 8.5-10.1 mg/ dL [facility]: 830 [facility] Normal AST/SGOT 9 U/L 7-37 U/L [facility]: 830 [facility] Normal ALT/SGPT 20 U/L 12-78 U/L [facility]: 830 [facility] High Alkaline Phosphatase 128 U/L 45-117 U/L [facility]: 830 [facility] Normal Bilirubin,total 0.4 mg/dL 0.2-1.0 mg /dL [facility]: 8[address] [facility] Normal Total Protein 7.0 gm/dL 6.4-8.2 gm/d L [facility]: 8[address] [facility] Normal Albumin 3.5 gm/dL 3.2-5.2 gm/dL [facility]: [address] [facility] Low Albumin/globulin Ratio 1.0 1.2-2. 2 [facility]: 830 [facility] 02/23/2020 Lipid Panel, Blood High Triglycerides Lev el 197 mg/dL <150 mg/dL [facility]: 83 0 [facility] Normal Cholesterol Level 150 mg/dL <200 mg/ dL [facility]: [address] [facility] Low HDL Cholesterol 34 mg/dL >40 mg/dL [facility]: [address] [facility] Normal LDL Cholesterol 77 mg/dL <100 mg/dL [facility]: 0 [facility] Normal Non-hdl-c 116 mg/dL [facility]: [address] [facility] Normal Cholesterol Risk Ratio 4.411 <5 [facility]: 8[address] [facility] 02/23/2020 Vitamin D, 25-Hydroxy, Total, Serum Low Total 25(Oh) Vitamin D 27.8 NG/mL 30.0-100.0 NG/mL [facility] nter: 0 [facility] 02/23/2020 HbA1C (Hemoglobin a1C), Blood Normal Hemogl obin a1C 6.0 % [facility]: 0 [facility] High Estimated Average Glucose 126 mg/dL 60-110 mg/dL [facility]: [address] [facility] Past Encounters 01/03/2021 Body Mass Index 40+ - Severely Obese; Hypertensive Disorder; Chronic Low Back Pain; Screening Mammography of Bilateral Breasts; Decreased Hearing; Prediabetes; Patient Asked to Attend KENDELL Hanson-BC: [address] [place] [address], Ph. 12/11/2020 Elevated Blood-pressure Reading without Diagnosis of Hypertension; Counseling Kevin Us, RPA-C: [address] [facility], [facility] [address] [address], Ph. 11/29/2020 Nicotine Dependence with Current Use; Patient Asked to Attend; Hyperlipidemia; Prediabetes [facility]: [address] [place] [address], Ph. 11/22/2020 Elevated Blood-pressure Reading without Diagnosis of Hypertension; Severe Obesity; Body Mass Index 40+ - Severely Obese; Nicotine Dependence with Current Use [facility]: [address] [place] [address], Ph. 10/10/2020 Nicotine Dependence with Current Use; Patient Asked to Attend; Obesity [facility]: [address] [place] [address], Ph. 10/02/2020 [facility]: [address] [place] [address], Ph. 08/20/2020 Exposure to SARS-CoV-2 Jeanmarie Fleming MD: [address] [place] [address], Ph. 05/31/2020 Nicotine Dependence with Current Use; Obesity; Prediabetes; Patient Asked to Attend [facility]: [address] [place] [id number], Ph. 05/23/2020 Hyperlipidemia [facility]: [address] [place] [address], Ph. 05/03/2020 Exposure to SARS-CoV-2 Jeanmarie Fleming MD: [address] [place] [address], Ph. 03/01/2020 Patient Asked to Attend; Mixed Hyperlipidemia; Hypertensive Disorder; Lumbosacral Radiculopathy; Nicotine Dependence [facility]: [address] [place] [address], Ph. Social History Tobacco Smoking Status Heavy [...] Imaging None recorded. Vitals 01/03/2021 03:40PM ESTABLISHED [id number] Height Weight BMI Blood Pressure 66 in 265 lbs 16 oz 42.9 kg/m2 129/87 mm[Hg] 12/11/2020 12:00PM SAME DAY 20 Height Weight BMI Blood Pressure 66 in 261 lbs 9.6 oz 42.2 kg/m2 (1) 136/82 m m[Hg] (2) 130/80 mm[Hg] 11/29/2020 09:20AM TELEHEALTH 20 Height 66 in 11/22/2020 11:40AM ESTABLISHED [id number] Height Weight BMI Blood Pressure 66 in 271 lbs 4 oz 43.8 kg/m2 121/80 mm[Hg] 10/10/2020 09:40AM TELEHEALTH 20 Height 66 in 10/02/2020 11:00AM NURSE LAB COLLECTION Height 66 in 05/31/2020 11:00AM ESTABLISHED [id number] Height Weight BMI Blood Pressure 66 in 258 lbs 16 oz 41.8 kg/m2 132/87 mm[Hg] 03/01/2020 11:20AM ESTABLISHED [id number] Height Weight BMI Blood Pressure 66 in [...]
--- OUTSIDE RECORDS SUMMARY | 2021-03-01 17:58 | CCD | Continuity of Care Document ---
Author Author Nanda SHINE Organization Unknown Address [address] [place] [address] [address] [place] [address] Phone [phone] Care Team Providers Care Customer Engagement Analyst Name Role Phone Ada Camara MD AUTM Lo Hernandez AUTM [phone] Problems Description No Information Available Social [...] Available Procedures Date Code Description Status 01/14/2021 30805 Therapeutic Procedure, Each 15 M inutes Completed 01/14/2021 40109 Manual Therapy Each 15 Minutes C ompleted 01/11/2021 82148 Manual Therapy Each 15 Minutes C ompleted 01/11/2021 94742 Therapeutic Procedure, Each 15 M inutes Completed 01/09/2021 64450 Manual Therapy Each 15 Minutes C ompleted 01/09/2021 88062 Therapeutic Procedure, Each 15 M inutes Completed 01/04/2021 46561 Manual Therapy Each 15 Minutes C ompleted 01/04/2021 54130 Therapeutic Procedure, Each 15 M inutes Completed 01/01/2021 21174 Manual Therapy Each 15 Minutes C ompleted 01/01/2021 29076 Therapeutic Procedure, Each 15 M inutes Completed 12/27/2020 43618 Manual Therapy Each 15 Minutes C ompleted 12/27/2020 29231 Therapeutic Procedure, Each 15 M inutes Completed 12/24/2020 32902 Manual Therapy Each 15 Minutes C ompleted 12/24/2020 60885 Therapeutic Procedure, Each 15 M inutes Completed 12/19/2020 09552 Manual Therapy Each 15 Minutes C ompleted 12/19/2020 54478 Therapeutic Procedure, Each 15 M inutes Completed 12/12/2020 74556 Manual Therapy Each 15 Minutes C ompleted 12/12/2020 02777 Therapeutic Procedure, Each 15 M inutes Completed 12/10/2020 27466 Physical Therapy Eval - Low Comp lexity Completed 11/28/2020 85934 Office/Outpatient Established Lo w MDM 20-29 Min Completed 10/16/2020 30701 Office/Outpatient Established Mo d MDM 30-39 Min Completed 10/16/202050226 Inject/Drain Joint/Bursa Major C ompleted 09/17/2020 12416 Office/Outpatient Established SF MDM 10-19 Min Completed 07/16/2020 86456 Office/Outpatient Established Mo d MDM 30-39 Min [...] right side Assessments Date Code Description Provider 01/14/2021 M51.36 Other intervertebral disc degene ration, lumbar region Agnieszka Scee P.T.A. 01/14/2021 M70.61 Trochanteric bursitis, right hip Agnieszka Scee P.T.A. 01/11/2021 M51.36 Other intervertebral disc degene ration, lumbar region Danamarie Ortolano, [employer] 01/11/2021 M70.61 Trochanteric bursitis, right hip Danamarie Ortolano, T[employer] WORKER 01/09/2021 M51.36 Other intervertebral disc degene ration, lumbar region Danamarie Ortolano, T[employer] WORKER 01/09/2021 M70.61 Trochanteric bursitis, right hip Danamarie Ortolano, TANK WORKER 01/04/2021 M51.36 Other intervertebral disc degene ration, lumbar region Agnieszka Scee P.T.A. 01/04/2021 M70.61 Trochanteric bursitis, right hip Agnieszka Scee P.T.A. 01/01/2021 M51.36 Other intervertebral disc degene ration, lumbar region Danamarie Ortolano, TANK WORKER 01/01/2021 M70.61 Trochanteric bursitis, right hip Danamarie Ortolano, TANK WORKER 12/27/2020 M51.36 Other intervertebral disc degene ration, lumbar region Shade Hines Cook P.T. 12/27/2020 M70.61 Trochanteric bursitis, right hip Shade Hines Cook P.T. 12/24/2020 M51.36 Other intervertebral disc degene ration, lumbar region Shade Hines Cook P.T. 12/24/2020 M70.61 Trochanteric bursitis, right hip Shade Hines Cook P.T. 12/19/2020 M51.36 Other intervertebral disc degene ration, lumbar region Roxanna Watkins, T[employer] WORKER 12/19/2020 M70.61 Trochanteric bursitis, right hip Roxanna Watkins, TANK WORKER 12/12/2020 M51.36 Other intervertebral disc degene ration, lumbar region Agnieszka Scee P.T.A. 12/12/2020 M70.61 Trochanteric bursitis, right hip Agnieszka Scee P.T.A. 12/10/2020 M51.36 Other intervertebral disc degene ration, lumbar region Shade Hines Cook P.T. 12/10/2020 M70.61 Trochanteric bursitis, right hip Shade Hines Cook P.T. 11/28/2020 M51.36 Other intervertebral disc degene ration, lumbar region Alexis Whiteside, PA-C 11/28/2020 M70.61 Trochanteric bursitis, right hip Alexis Whiteside, PA-C 10/16/2020 M51.36 Other intervertebral disc degene ration, lumbar region Alexis Whiteside, PA-C 10/16/2020 M70.61 Trochanteric bursitis, right hip Alexis Whiteside, PA-C 09/17/2020 M51.36 Other intervertebral disc degene ration, lumbar region Alexis Whiteside, PA-C 09/17/2020 M70.61 Trochanteric bursitis, right hip Alexis Whiteside, PA-C 07/16/2020 M51.36 Other intervertebral disc degene ration, lumbar region Matthew Bianchi MD 07/16/2020 M54.31 Sciatica, right side Matthew contreras MD Plan of Treatment Future Appointment(s):* 01/18/2021 8:30 am - [facility] P[facility] at [facility] Therapy * 01/29/2021 8:30 am - N[facility] at [facility] Functional Status Description No Information Available Mental Status Description No Information Available Referrals Refer to Dr Reason for Referral Status Appt Date Alexis Whiteside, [place] PT - 10 VISITS OK'D FOR LS/R HIP FROM 12/10-03/10/21, AUTH# [id number], RES# [id number]. SS Created [facility] [address] [place] [address] [phone] Alexis Whiteside, PAAnaliC Physical Therapy Right Hip,p atient allowed eval then needs auth to PT dept, patient is going to [facility], passed to PT dept sw. Created [address] [place] [address] [phone] Matthew Bianchi MD MRI APPROVED PER ARVIND CAMPOS FOR MRI OF L SPINE (83479) TO SERGEY JAUREGUI Created [address] [place] [address], [address] [place] [address] [phone]"
--- OUTSIDE RECORDS SUMMARY | 2021-03-01 18:02 | CCD ---
Author Author [facility] Organization [facility] Address Unknown Phone Unavailable Support Name Relationship Address Phone U Next Of Kin Unknown Unavailable NO, PER PATIENT ONE Next Of Kin [address] [place] [address] Evelyn Roberts Next Of Kin Unknown Unavailable Karoline Ibanez Next Of Kin [address] [place] [address] DISABLED Next Of Kin Unknown Unavailable Desirae Dunn MD Next Of Kin [address] [place], [place] [id number] [employer] HEREDIA Next Of Kin [id number] [place] [address] Cale RDZ, Marija Next Of Kin [address] [place] [address] 315 ANNA DELEON Next Of Kin [address] [place] [address] KENDELL Madsen, Marija Next Of Kin [address] [place] [address] Jeanmarie Fleming MD Next Of Kin [address] [place] [address] [employer] BRYANNA Next Of Kin [id number] [place] [address] UE Next Of Kin Unknown Unavailable EVELYN ROBERTS Next Of Kin [address] [place] [id number] EVELYN ROBERTS Next Of Kin [address] [facility] [address] [place] [address] Belle Roberts [facility] [id number] [address] Unavailable Care Team Providers Care Client Service Associate Name Role Phone Dayron Fleming MD Unavailable Unavailable Dayron Fleming MD Unavailable Unavailable Dayron Fleming MD Unavailable Unavailable Dayron Fleming MD Unavailable Unavailable Dayron Fleming MD Unavailable Unavailable Dayron Fleming MD Unavailable Unavailable Dayron Fleming MD Unavailable Unavailable Dayron Fleming MD Unavailable Unavailable Dayron Fleming MD Unavailable Unavailable Dayron Fleming MD Unavailable Unavailable Dayron Fleming MD Unavailable Unavailable Dayron Fleming MD Unavailable Unavailable Dayron Fleming MD Unavailable Unavailable Dayron Fleming MD Unavailable Unavailable Dayron Fleming MD Unavailable Unavailable Dayron Fleming MD Unavailable Unavailable Dayron Fleming MD Unavailable Unavailable Dayron Fleming MD Unavailable Unavailable Dayron Fleming MD Unavailable Unavailable Dayron Fleming MD Unavailable Unavailable Dayron Fleming MD Unavailable Unavailable Dayron Fleming MD Unavailable Unavailable Dayron Fleming MD Unavailable Unavailable Dayron Fleming MD Unavailable Unavailable Dayron Fleming MD Unavailable Unavailable Dayron Fleming MD Unavailable Unavailable Dayron Fleming MD Unavailable Unavailable Dayron Fleming MD Unavailable Unavailable Dayron Fleming MD Unavailable Unavailable Dayron Fleming MD Unavailable Unavailable Dayron Fleming MD Unavailable Unavailable Dayron Fleming MD Unavailable Unavailable Dayron Fleming MD Unavailable Unavailable Dayron Fleming MD Unavailable Unavailable Dayron Fleming MD Unavailable Unavailable Dayron Fleming MD Unavailable Unavailable Dayron Fleming MD Unavailable Unavailable Dayron Fleming MD Unavailable Unavailable Dayron Fleming MD Unavailable Unavailable Dayron Fleming MD Unavailable Unavailable Dayron Fleming MD Unavailable Unavailable Dayron Fleming MD Unavailable Unavailable Dayron Fleming MD Unavailable Unavailable Dayron Fleming MD Unavailable Unavailable Dayron Fleming MD Unavailable Unavailable Dayron Fleming MD Unavailable Unavailable Dayron Fleming MD Unavailable Unavailable Dayron Fleming MD Unavailable Unavailable Dayron Fleming MD Unavailable Unavailable Dayron Fleming MD Unavailable Unavailable Dayron Fleming MD Unavailable Unavailable Dayron Fleming MD Unavailable Unavailable Dayron Fleming MD Unavailable Unavailable Dayron Fleming MD Unavailable Unavailable Dayron Fleming MD Unavailable Unavailable Dayron Fleming MD Unavailable Unavailable Dayron Fleming MD Unavailable Unavailable Dayron Fleming MD Unavailable Unavailable Dayron Fleming MD Unavailable Unavailable Dayron Fleming MD Unavailable Unavailable Dayron Fleming MD Unavailable Unavailable Dayron Fleming MD Unavailable Unavailable Dayron Fleming MD Unavailable Unavailable Dayron Fleming MD Unavailable Unavailable Dayron Fleming MD Unavailable Unavailable Dayron Fleming MD Unavailable Unavailable Dayron Fleming MD Unavailable Unavailable Dayron Fleming MD Unavailable Unavailable Dayron Fleming MD Unavailable Unavailable Dayron Fleming MD Unavailable Unavailable Dayron Fleming MD Unavailable Unavailable Dayron Fleming MD Unavailable Unavailable Dayron Fleming MD Unavailable Unavailable Dayron Fleming MD Unavailable Unavailable Dayron Fleming MD Unavailable Unavailable Dayron Fleming MD Unavailable Unavailable Dayron Fleming MD Unavailable Unavailable Dayron Fleming MD Unavailable Unavailable Dayron Fleming MD Unavailable Unavailable Dayron Fleming MD Unavailable Unavailable Dayron Fleming MD Unavailable Unavailable Dayron Fleming MD Unavailable Unavailable Dayron Fleming MD Unavailable Unavailable Dayron Fleming MD Unavailable Unavailable Dayron Fleming MD Unavailable Unavailable Dayron Fleming MD Unavailable Unavailable Dayron Fleming MD Unavailable Unavailable Dayron Fleming MD Unavailable Unavailable Dayron Fleming MD Unavailable Unavailable Dayron Fleming MD Unavailable Unavailable Dayron Fleming MD Unavailable Unavailable Dayron Fleming MD Unavailable Unavailable Dayron Fleming MD Unavailable Unavailable Karoline Messer TALEND ETL DEVELOPER Unavailable Unavailable PHYSICIAN, OTHER Unavailable Unavailable BALJIT, M CASANDRA PA Unavailable Unavailable BALJIT, M CASANDRA PA Unavailable Unavailable BALJIT, M CASANDRA PA Unavailable Unavailable BALJIT, M CASANDRA PA Unavailable Unavailable BALJIT, M CASANDRA PA Unavailable Unavailable BALJIT, M CASANDRA PA Unavailable Unavailable BALJIT, M CASANDRA PA Unavailable Unavailable BALJIT, M CASANDRA PA Unavailable Unavailable BALJIT, M CASANDRA PA Unavailable Unavailable BALJIT, M CASANDRA PA Unavailable Unavailable BALJIT, M CASANDRA PA Unavailable Unavailable BALJIT, M CASANDRA PA Unavailable Unavailable BALJIT, M CASANDRA PA Unavailable Unavailable BALJIT, M CASANDRA PA Unavailable Unavailable BALJIT, M CASANRDA PA Unavailable Unavailable BALJIT, M CASANDRA PA Unavailable Unavailable BALJIT, M CASANDRA PA Unavailable Unavailable BALJIT, M CASANDRA PA Unavailable Unavailable BALJIT, M CASANDRA PA Unavailable Unavailable BALJIT, M CASANDRA PA Unavailable Unavailable BALJIT, M CASANDRA PA Unavailable Unavailable BALJIT, M CASANDRA PA Unavailable Unavailable BALJIT, M CASANDRA PA Unavailable Unavailable BALJIT, M CASANDRA PA Unavailable Unavailable Trickey, J Neva PA Unavailable Unavailable Trickey, J Neva PA Unavailable Unavailable Trickey, J Neva PA Unavailable Unavailable Trickey, J Neva PA Unavailable Unavailable Trickey, J Neva PA Unavailable Unavailable Trickey, J Neva PA Unavailable Unavailable Trickey, J Neva PA Unavailable Unavailable Trickey, J Neva PA Unavailable Unavailable Trickey, J Neva PA Unavailable Unavailable Trickey, J Neva PA Unavailable Unavailable Trickey, J Neva PA Unavailable Unavailable Trickey, J Neva PA Unavailable Unavailable Trickey, J Neva PA Unavailable Unavailable Trickey, J Neva PA Unavailable Unavailable Trickey, J Neva PA Unavailable Unavailable Trickey, J Neva PA Unavailable Unavailable Trickey, J Neva PA Unavailable Unavailable Trickey, J Neva PA Unavailable Unavailable Trickey, J Neva PA Unavailable Unavailable Trickey, J Neva PA Unavailable Unavailable Trickey, J Neva PA Unavailable Unavailable Trickey, J Neva PA Unavailable Unavailable Trickey, J Neva PA Unavailable Unavailable Trickey, J Neva PA Unavailable Unavailable Trickey, J Neva PA Unavailable Unavailable Trickey, J Neva PA Unavailable Unavailable Trickey, J Neva PA Unavailable Unavailable Trickey, J Neva PA Unavailable Unavailable Trickey, J Neva PA Unavailable Unavailable Trickey, J Neva PA Unavailable Unavailable Trickey, J Neva PA Unavailable Unavailable Trickey, J Neva PA Unavailable Unavailable Trickey, J Neva PA Unavailable Unavailable Trickey, J Neva PA Unavailable Unavailable Trickey, J Neva PA Unavailable Unavailable Trickey, J Neva PA Unavailable Unavailable Trickey, J Neva PA Unavailable Unavailable Trickey, J Neva PA Unavailable Unavailable Trickey, J Neva PA Unavailable Unavailable Trickey, J Neva PA Unavailable Unavailable Trickey, J Neva PA Unavailable Unavailable Trickey, J Neva PA Unavailable Unavailable Trickey, J Neva PA Unavailable Unavailable Trickey, J Neva PA Unavailable Unavailable Trickey, J Neva PA Unavailable Unavailable Trickey, J Neva PA Unavailable Unavailable Trickey, J Neva PA Unavailable Unavailable Trickey, J Neva PA Unavailable Unavailable Trickey, J Neva PA Unavailable Unavailable Asher Bianchi MD Unavailable Unavailable Asher Bianchi MD Unavailable Unavailable Asher Bianchi MD Unavailable Unavailable Asher Bianchi MD Unavailable Unavailable Asher Bianchi MD Unavailable Unavailable Asher Bianchi MD Unavailable Unavailable Asher Bianchi MD Unavailable Unavailable Asher Bianchi MD Unavailable Unavailable Asher Bianchi MD Unavailable Unavailable Asher Bianchi MD Unavailable Unavailable Asher Bianchi MD Unavailable Unavailable Asher Bianchi MD Unavailable Unavailable Asher Bianchi MD Unavailable Unavailable Asher Bianchi MD Unavailable Unavailable Asher Bianchi MD Unavailable Unavailable Asher Bianchi MD Unavailable Unavailable Asher Bianchi MD Unavailable Unavailable Asher Bianchi MD Unavailable Unavailable Asher Bianchi MD Unavailable Unavailable Asher Bianchi MD Unavailable Unavailable Asher Bianchi MD Unavailable Unavailable Asher Bianchi MD Unavailable Unavailable Asher Bianchi MD Unavailable Unavailable Asher Bianchi MD Unavailable Unavailable Asher Bianchi MD Unavailable Unavailable Asher Bianhci MD Unavailable Unavailable Asher Bianchi MD Unavailable Unavailable Bianchi, Asher Castro MD Unavailable Unavailable Bianchi, Asher Castro MD Unavailable Unavailable Bianchi, Asher Castro MD Unavailable Unavailable Bianchi, Asher Castro MD Unavailable Unavailable Bianchi, Asher Castro MD Unavailable Unavailable Bianchi, Asher Castro MD Unavailable Unavailable Bianchi, Asher Castro MD Unavailable Unavailable Bianchi, Asher Castro MD Unavailable Unavailable Bianchi, Asher Castro MD Unavailable Unavailable Bianchi, Asher Castro MD Unavailable Unavailable Bianchi, Asher Castro MD Unavailable Unavailable Bianchi, Asher Castro MD Unavailable Unavailable Bianchi, Asher Castro MD Unavailable Unavailable Bianchi, L Matthew HAYWOOD Unavailable Unavailable Bianchi, Asher Castro MD Unavailable Unavailable Bianchi, Asher Castro MD Unavailable Unavailable Bianchi, Asher Castro MD Unavailable Unavailable Bianchi, Asher Castro MD Unavailable Unavailable Bianchi, L Matthew HAYWOOD Unavailable Unavailable Bianchi, Asher Castro MD Unavailable Unavailable Bianchi, L Matthew HAYWOOD Unavailable Unavailable Bianchi, Asher Castro MD Unavailable Unavailable Bianchi, Asher Castro MD Unavailable Unavailable Whiteside, M Barratt PA Unavailable Unavailable Whiteside, M Barratt PA Unavailable Unavailable Whiteside, M Barratt PA Unavailable Unavailable Whiteside, M Barratt PA Unavailable Unavailable Whiteside, M Barratt PA Unavailable Unavailable Whiteside, M Barratt PA Unavailable Unavailable Whiteside, M Barratt PA Unavailable Unavailable Whiteside, M Barratt PA Unavailable Unavailable Whiteside, M Barratt PA Unavailable Unavailable Whiteside, M Barratt PA Unavailable Unavailable Whiteside, M Barratt PA Unavailable Unavailable Whiteside, M Barratt PA Unavailable Unavailable Whiteside, M Barratt PA Unavailable Unavailable Whiteside, M Barratt PA Unavailable Unavailable Whiteside, M Barratt PA Unavailable Unavailable Whiteside, M Barratt PA Unavailable Unavailable Whiteside, M Barratt PA Unavailable Unavailable Whiteside, M Barratt PA Unavailable Unavailable Whiteside, M Barratt PA Unavailable Unavailable Whiteside, M Barratt PA Unavailable Unavailable Whiteside, M Barratt PA Unavailable Unavailable Whiteside, M Barratt PA Unavailable Unavailable Whiteside, M Barratt PA Unavailable Unavailable Whiteside, M Barratt PA Unavailable Unavailable Whiteside, M Barratt PA Unavailable Unavailable Whiteside, M Barratt PA Unavailable Unavailable Whiteside, M Barratt PA Unavailable Unavailable Whiteside, M Barratt PA Unavailable Unavailable Whiteside, M Barratt PA Unavailable Unavailable Jumalon, M Aure TALEND ETL DEVELOPER Unavailable Unavailable Jumalon, M Aure TALEND ETL DEVELOPER Unavailable Unavailable Jumalon, M Aure TALEND ETL DEVELOPER Unavailable Unavailable Jumalon, M Aure TALEND ETL DEVELOPER Unavailable Unavailable Jumalon, M Aure TALEND ETL DEVELOPER Unavailable Unavailable Jumalon, M Aure TALEND ETL DEVELOPER Unavailable Unavailable Jumalon, M Aure TALEND ETL DEVELOPER Unavailable Unavailable Jumalon, M Aure TALEND ETL DEVELOPER Unavailable Unavailable Jumalon, M Aure TALEND ETL DEVELOPER Unavailable Unavailable Jumalon, M Aure TALEND ETL DEVELOPER Unavailable Unavailable Jumalon, M Aure TALEND ETL DEVELOPER Unavailable Unavailable Jumalon, M Aure TALEND ETL DEVELOPER Unavailable Unavailable Jumalon, M Aure TALEND ETL DEVELOPER Unavailable Unavailable Jumalon, M Aure TALEND ETL DEVELOPER Unavailable Unavailable Jumalon, M Aure TALEND ETL DEVELOPER Unavailable Unavailable Jumalon, M Aure TALEND ETL DEVELOPER Unavailable Unavailable Jumalon, M Aure TALEND ETL DEVELOPER Unavailable Unavailable Jumalon, M Aure TALEND ETL DEVELOPER Unavailable Unavailable Jumalon, M Aure TALEND ETL DEVELOPER Unavailable Unavailable Jumalon, M Aure TALEND ETL DEVELOPER Unavailable Unavailable Jumalon, M Aure TALEND ETL DEVELOPER Unavailable Unavailable Jumalon, M Aure TALEND ETL DEVELOPER Unavailable Unavailable Jumalon, M Aure TALEND ETL DEVELOPER Unavailable Unavailable Jumalon, M Aure TALEND ETL DEVELOPER Unavailable Unavailable Jumalon, M Aure TALEND ETL DEVELOPER Unavailable Unavailable Jumalon, M Aure TALEND ETL DEVELOPER Unavailable Unavailable Jumalon, M Aure TALEND ETL DEVELOPER Unavailable Unavailable Jumalon, M Aure TALEND ETL DEVELOPER Unavailable Unavailable Jumalon, M Arue TALEND ETL DEVELOPER Unavailable Unavailable Jumalon, M Aure TALEND ETL DEVELOPER Unavailable Unavailable ELIZONDO, TAE TALEND ETL DEVELOPER Unavailable Unavailable ELIZONDO, TAE TALEND ETL DEVELOPER Unavailable Unavailable ELIZONDO, TAE TALEND ETL DEVELOPER Unavailable Unavailable ELIZONDO, TAE TALEND ETL DEVELOPER Unavailable Unavailable BALJIT, M CASANDRA PA Unavailable Unavailable BALJIT, M CASANDRA PA Unavailable Unavailable BALJIT, M CASANDRA PA Unavailable Unavailable BALJIT, M CASANDRA PA Unavailable Unavailable BALJIT, M CASANDRA PA Unavailable Unavailable BALJIT, M CASANDRA PA Unavailable Unavailable BALJIT, M CASANDRA PA Unavailable Unavailable BALJIT, M CASANDRA PA Unavailable Unavailable BALJIT, M CASANDRA PA Unavailable Unavailable BALJIT, M CASANDRA PA Unavailable Unavailable BALJIT, M CASANDRA PA Unavailable Unavailable BALJIT, M CASNADRA PA Unavailable Unavailable BALJIT, M CASANDRA PA Unavailable Unavailable BALJIT, M CASANDRA PA Unavailable Unavailable BALJIT, M CASANDRA PA Unavailable Unavailable BALJIT, M CASANDRA PA Unavailable Unavailable BALJIT, M CASANDRA PA Unavailable Unavailable BALJIT, M CASANDRA PA Unavailable Unavailable BALJIT, M CASANDRA PA Unavailable Unavailable BALJIT, M CASANDRA PA Unavailable Unavailable BALJIT, M CASANDRA PA Unavailable Unavailable BALJIT, M CASANDRA PA Unavailable Unavailable BALJIT, M CASANDRA PA Unavailable Unavailable BALJIT, M CASANDRA PA Unavailable Unavailable Maring, Lew PA Unavailable Unavailable Maring, Lew PA Unavailable Unavailable Maring, Lew PA Unavailable Unavailable Maring, Lew PA Unavailable Unavailable Maring, Lew PA Unavailable Unavailable Maring, Lew PA Unavailable Unavailable Maring, Lew PA Unavailable Unavailable Maring, Lew PA Unavailable Unavailable Maring, Lew PA Unavailable Unavailable Maring, Lew PA Unavailable Unavailable Maring, Lew PA Unavailable Unavailable Maring, Lew PA Unavailable Unavailable Maring, Lew PA Unavailable Unavailable Maring, Lew PA Unavailable Unavailable Maring, Lew PA Unavailable Unavailable Maring, Lew PA Unavailable Unavailable US, SAMIRA KEVIN RPA-C Unavailable Unavailable US, SAMIRA KEVIN RPA-C Unavailable Unavailable US, SAMIRA KEVIN RPA-C Unavailable Unavailable US, SAMIRA KEVIN RPA-C Unavailable Unavailable US, SAMIRA KEVIN RPA-C Unavailable Unavailable US, SAMIRA KEVIN RPA-C Unavailable Unavailable US, SAMIRA KEVIN RPA-C Unavailable Unavailable US, SAMIRA KEVIN RPA-C Unavailable Unavailable US, SAMIRA KEVIN RPA-C Unavailable Unavailable US, SAMIRA KEVIN RPA-C Unavailable Unavailable US, SAMIRA KEVIN RPA-C Unavailable Unavailable US, SAMIRA KEVIN RPA-C Unavailable Unavailable US, SAMIRA KEVIN RPA-C Unavailable Unavailable US, SAMIRA KEVIN RPA-C Unavailable Unavailable US, SAMIRA KEVIN RPA-C Unavailable Unavailable US, SAMIRA KEVIN RPA-C Unavailable Unavailable US, SAMIRA KEVIN RPA-C Unavailable Unavailable US, SAMIRA KEVIN RPA-C Unavailable Unavailable US, SAMIRA KEVIN RPA-C Unavailable Unavailable US, SAMIRA KEVIN RPA-C Unavailable Unavailable US, SAMIRA KEVIN RPA-C Unavailable Unavailable US, SAMIRA KEVIN RPA-C Unavailable Unavailable US, SAMIRA KEVIN RPA-C Unavailable Unavailable US, SAMIRA KEVIN RPA-C Unavailable Unavailable US, SAMIRA KEVIN RPA-C Unavailable Unavailable US, SAMIAR KEVIN RPA-C Unavailable Unavailable US, SAMIRA KEVIN RPA-C Unavailable Unavailable US, SAMIRA KEVIN RPA-C Unavailable Unavailable US, SAMIRA KEVIN RPA-C Unavailable Unavailable US, SAMIRA KEVIN RPA-C Unavailable Unavailable US, SAMIRA KEVIN RPA-C Unavailable Unavailable US, SAMIRA KEVIN RPA-C Unavailable Unavailable US, SAMIRA KEVIN RPA-C Unavailable Unavailable US, SAMIRA KEVIN RPA-C Unavailable Unavailable US, SAMIRA KEVIN RPA-C Unavailable Unavailable US, SAMIRA KEVIN RPA-C Unavailable Unavailable US, SAMIRA KEVIN RPA-C Unavailable Unavailable US, SAMIRA KEVIN RPA-C Unavailable Unavailable US, SAMIRA KEVIN RPA-C Unavailable Unavailable US, SAMIRA KEVIN RPA-C Unavailable Unavailable US, SAMIRA KEVIN RPA-C Unavailable Unavailable US, SAMIRA KEVIN RPA-C Unavailable Unavailable US, SAMIRA KEVIN RPA-C Unavailable Unavailable Leisa Esquivel MD Unavailable Unavailable BolLeisa butts MD Unavailable Unavailable BolLeisa butts MD Unavailable Unavailable BolLeisa butts MD Unavailable Unavailable BolLeisa butts MD Unavailable Unavailable BolLeisa butts MD Unavailable Unavailable BolLeisa butts MD Unavailable Unavailable BolLeisa butts MD Unavailable Unavailable Leisa Esquivel MD Unavailable Unavailable BolLeisa butts MD Unavailable Unavailable Leisa Esquivel MD Unavailable Unavailable BolLeisa butts MD Unavailable Unavailable Leisa Esquivel MD Unavailable Unavailable BolLeisa butts MD Unavailable Unavailable Leisa Esquivel MD Unavailable Unavailable BolLeisa butts MD Unavailable Unavailable BolLeisa butts MD Unavailable Unavailable BolLeisa butts MD Unavailable Unavailable BolLeisa butts MD Unavailable Unavailable BolLeisa butts MD Unavailable Unavailable BolLeisa butts MD Unavailable Unavailable Leisa Esquivel MD Unavailable Unavailable BolLeisa butts MD Unavailable Unavailable BolLeisa butts MD Unavailable Unavailable BolLeisa butts MD Unavailable Unavailable BolLeisa butts MD Unavailable Unavailable BolLeisa butts MD Unavailable Unavailable BolLeisa butts MD Unavailable Unavailable BolLeisa butts MD Unavailable Unavailable BolLeisa butts MD Unavailable Unavailable BolLeisa butts MD Unavailable Unavailable Bolla, Leisa Mendieta MD Unavailable Unavailable Bolbeckie, Leisa Mendieta MD Unavailable Unavailable [place], Leisa Mendieta MD Unavailable Unavailable Bolla, Leisa Mendieta MD Unavailable Unavailable [place], Leisa Mendieta MD Unavailable Unavailable [place], Leisa Mendieta MD Unavailable Unavailable Bolla, Leisa Mendieta MD Unavailable Unavailable [place], Leisa Mendieta MD Unavailable Unavailable [place], Leisa Mendieta MD Unavailable Unavailable [place], Leisa Mendieta MD Unavailable Unavailable Bolla, Leisa Mendieta MD Unavailable Unavailable [place], Leisa Mendieta MD Unavailable Unavailable Bolla, S Anam HAYWOOD Unavailable Unavailable [place]beckie, S Anam HAYWOOD Unavailable Unavailable Bolla, S Anam HAYWOOD Unavailable Unavailable Bolla, Leisa Mendieta MD Unavailable Unavailable Bolla, S Anam HAYWOOD Unavailable Unavailable [place]beckie, S Anam HAYWOOD Unavailable Unavailable Symenow, Amina Katie PA Unavailable Unavailable Symenow, Amina Katie PA Unavailable Unavailable Symenow, Amina Katie PA Unavailable Unavailable Symenow, Amina Katie PA Unavailable Unavailable Symenow, Amina Katie PA Unavailable Unavailable Symenow, Amina Katie PA Unavailable Unavailable Symenow, Amina Katie PA Unavailable Unavailable Symenow, Amina Katie PA Unavailable Unavailable Symenow, Amina Katie PA Unavailable Unavailable Symenow, Amina Katie PA Unavailable Unavailable Symenow, Amina Katie PA Unavailable Unavailable Symenow, Amina Katie PA Unavailable Unavailable Symenow, Amina Katie PA Unavailable Unavailable Symenow, Amina Katie PA Unavailable Unavailable Symenow, Amina Katie PA Unavailable Unavailable Symenow, Amina Katie PA Unavailable Unavailable Symenow, Amina Katie PA Unavailable Unavailable Symenow, Amina Katie PA Unavailable Unavailable Symenow, Amina Katie PA Unavailable Unavailable Symenow, Amina Katie PA Unavailable Unavailable Symenow, Amina Katie PA Unavailable Unavailable Symenow, Amina Katie PA Unavailable Unavailable Symenow, Amina Katie PA Unavailable Unavailable Symenow, Amina Katie PA Unavailable Unavailable Symenow, Amina Katie PA Unavailable Unavailable Symenow, Amina Katie PA Unavailable Unavailable Symenow, Amina Katie PA Unavailable Unavailable Symenow, Amina Katie PA Unavailable Unavailable Symenow, Amina Katie PA Unavailable Unavailable Symenow, Amina Katie PA Unavailable Unavailable Symenow, Amina Katie PA Unavailable Unavailable Symenow, Amina Katie PA Unavailable Unavailable Symenow, Amina Katie PA Unavailable Unavailable Symenow, Amina Katie PA Unavailable Unavailable David, A Lo TALEND ETL DEVELOPER Unavailable Unavailable [place], A Lo TALEND ETL DEVELOPER Unavailable Unavailable [place], A Lo TALEND ETL DEVELOPER Unavailable Unavailable [place], A Lo TALEND ETL DEVELOPER Unavailable Unavailable [place], A Lo TALEND ETL DEVELOPER Unavailable Unavailable [place], A Lo TALEND ETL DEVELOPER Unavailable Unavailable [place], A Lo TALEND ETL DEVELOPER Unavailable Unavailable [place], A Lo TALEND ETL DEVELOPER Unavailable Unavailable [place], A Lo TALEND ETL DEVELOPER Unavailable Unavailable [place], A Lo TALEND ETL DEVELOPER Unavailable Unavailable [place], A Lo TALEND ETL DEVELOPER Unavailable Unavailable [place], A Lo TALEND ETL DEVELOPER Unavailable Unavailable [place], A Lo TALEND ETL DEVELOPER Unavailable Unavailable [place], A Lo TALEND ETL DEVELOPER Unavailable Unavailable [place], A Lo TALEND ETL DEVELOPER Unavailable Unavailable [place], A Lo TALEND ETL DEVELOPER Unavailable Unavailable [place], A Lo TALEND ETL DEVELOPER Unavailable Unavailable [place], A Lo TALEND ETL DEVELOPER Unavailable Unavailable [place], A Lo TALEND ETL DEVELOPER Unavailable Unavailable [place], A Lo TALEND ETL DEVELOPER Unavailable Unavailable [place], A Lo TALEND ETL DEVELOPER Unavailable Unavailable [place], A Lo TALEND ETL DEVELOPER Unavailable Unavailable [place], A Lo TALEND ETL DEVELOPER Unavailable Unavailable [place], A Lo TALEND ETL DEVELOPER Unavailable Unavailable [place], A Lo TALEND ETL DEVELOPER Unavailable Unavailable [place], A Lo TALEND ETL DEVELOPER Unavailable Unavailable [place], A Lo TALEND ETL DEVELOPER Unavailable Unavailable [place], A Lo TALEND ETL DEVELOPER Unavailable Unavailable [place], A Lo TALEND ETL DEVELOPER Unavailable Unavailable [place], A Lo TALEND ETL DEVELOPER Unavailable Unavailable [place], A Lo TALEND ETL DEVELOPER Unavailable Unavailable DRAZEK, I MICHAEL PA Unavailable Unavailable DRAZEK, I MICHAEL PA Unavailable Unavailable DRAZEK, I MICHAEL PA Unavailable Unavailable DRAZEK, I MICHAEL PA Unavailable Unavailable DRAZEK, I MICHAEL PA Unavailable Unavailable DRAZEK, I MICHAEL PA Unavailable Unavailable DRAZEK, I MICHAEL PA Unavailable Unavailable DRAZEK, I MICHAEL PA Unavailable Unavailable DRAZEK, I MICHAEL PA Unavailable Unavailable DRAZEK, I MICHAEL PA Unavailable Unavailable DRAZEK, I MICHAEL PA Unavailable Unavailable DRAZEK, I MICHAEL PA Unavailable Unavailable DRAZEK, I MICHAEL PA Unavailable Unavailable DRAZEK, I MICHAEL PA Unavailable Unavailable DRAZEK, I MICHAEL PA Unavailable Unavailable DRAZEK, I MICHAEL PA Unavailable Unavailable DRAZEK, I MICHAEL PA Unavailable Unavailable DRAZEK, I MICHAEL PA Unavailable Unavailable DRAZEK, I MICHAEL PA Unavailable Unavailable DRAZEK, I MICHAEL PA Unavailable Unavailable DRAZEK, I MICHAEL PA Unavailable Unavailable DRAZEK, I MICHAEL PA Unavailable Unavailable DRAZEK, I MICHAEL PA Unavailable Unavailable DRAZEK, I MICHAEL PA Unavailable Unavailable DRAZEK, I MICHAEL PA Unavailable Unavailable DRAZEK, I MICHAEL PA Unavailable Unavailable DRAZEK, I MICHAEL PA Unavailable Unavailable DRAZEK, I MICHAEL PA Unavailable Unavailable DRAZEK, I MICHAEL PA Unavailable Unavailable DRAZEK, I MICHAEL PA Unavailable Unavailable [id number], [id number] Unavailable [phone] BUNKER, R CATHERINE PA Unavailable Unavailable BUNKER, R CATHERINE PA Unavailable Unavailable BUNKER, R CATHERINE PA Unavailable Unavailable BUNKER, R CATHERINE PA Unavailable Unavailable BUNKER, R CATHERINE PA Unavailable Unavailable BUNKER, R CATHERINE PA Unavailable Unavailable BUNKER, R CATHERINE PA Unavailable Unavailable BUNKER, R CATHERINE PA Unavailable Unavailable BUNKER, R CATHERINE PA Unavailable Unavailable BUNKER, R CATHERINE PA Unavailable Unavailable BUNKER, R CATHERINE PA Unavailable Unavailable BUNKER, R CATHERINE PA Unavailable Unavailable BUNKER, R CATHERINE PA Unavailable Unavailable BUNKER, R CATHERINE PA Unavailable Unavailable BUNKER, R CATHERINE PA Unavailable Unavailable BUNKER, R CATHERINE PA Unavailable Unavailable BUNKER, R CATHERINE PA Unavailable Unavailable BUNKER, R CATHERINE PA Unavailable Unavailable BUNKER, R CATHERINE PA Unavailable Unavailable BUNKER, R CATHERINE PA Unavailable Unavailable BUNKER, R CATHERINE PA Unavailable Unavailable BUNKER, R CATHERINE PA Unavailable Unavailable BUNKER, R CATHERINE PA Unavailable Unavailable BUNKER, R CATHERINE PA Unavailable Unavailable BUNKER, R CATHERINE PA Unavailable Unavailable BUNKER, R CATHERINE PA Unavailable Unavailable BUNKER, R CATHERINE PA Unavailable Unavailable BUNKER, R CATHERINE PA Unavailable Unavailable BUNKER, R CATHERINE PA Unavailable Unavailable BUNKER, R CATHERINE PA Unavailable Unavailable BUNKER, R CATHERINE PA Unavailable Unavailable BUNKER, R CATHERINE PA Unavailable Unavailable BUNKER, R CATHERINE PA Unavailable Unavailable BUNKER, R CATHERINE PA Unavailable Unavailable BUNKER, R CATHERINE PA Unavailable Unavailable BUNKER, R CATHERINE PA Unavailable Unavailable BUNKER, R CATHERINE PA Unavailable Unavailable BUNKER, R CATHERINE PA Unavailable Unavailable BUNKER, R CATHERINE PA Unavailable Unavailable BUNKER, R CATHERINE PA Unavailable Unavailable BUNKER, R CATHERINE PA Unavailable Unavailable BUNKER, R CATHERINE PA Unavailable Unavailable BUNKER, R CATHERINE PA Unavailable Unavailable BUNKER, R CATHERINE PA Unavailable Unavailable BUNKER, R CATHERINE PA Unavailable Unavailable BUNKER, R CATHERINE PA Unavailable Unavailable BUNKER, R CATHERINE PA Unavailable Unavailable BUNKER, R CATHERINE PA Unavailable Unavailable BUNKER, R CATHERINE PA Unavailable Unavailable BUNKER, R CATHERINE PA Unavailable Unavailable BUNKER, R CATHERINE PA Unavailable Unavailable BUNKER, R CATHERINE PA Unavailable Unavailable BUNKER, R CATHERINE PA Unavailable Unavailable BUNKER, R CATHERINE PA Unavailable Unavailable BUNKER, R CATHERINE PA Unavailable Unavailable BUNKER, R CATHERINE PA Unavailable Unavailable Re-disclosure Warning The records that you are about to access may contain information from federally-assisted alcohol or drug abuse programs. If such information is present, then the following federally mandated warning applies: This information has been disclosed to you from records protected by federal confidentiality rules (42 CFR part 2). The federal rules prohibit you from making any further disclosure of this information unless further disclosure is expressly permitted by the written consent of the person to whom it pertains or as otherwise permitted by 42 CFR part 2. A general authorization for the release of medical or other information is NOT sufficient for this purpose. The Federal rules restrict any use of the information to criminally investigate or prosecute any alcohol or drug abuse patient.The records that you are about to access may contain highly sensitive health information, the redisclosure of which is protected by Article 27-F of the [facility] Public Health law. If you continue you may have access to information: Regarding HIV / AIDS; Provided by facilities licensed or operated by the [facility] Office of Mental Health; or Provided by the [place] Office for People With Developmental Disabilities. If such information is present, then the following [facility] mandated warning applies: This information has been disclosed to you from confidential records which are protected by state law. State law prohibits you from making any further disclosure of this information without the specific written consent of the person to whom it pertains, or as otherwise permitted by law. Any unauthorized further disclosure in violation of state law may result in a fine or long term sentence or both. A general authorization for the release of medical or other information is NOT sufficient authorization for further disc losure. Family History Family Member Name Family Member Gender Family Member Status Date o f Status Description Data Source(s) Unknown Male Problem MEDENT ([facility]) Encounters Encounter Providers Location Date Indications Data Source(s ) Yuliya Penaloza RD: [address] [place] [phone], Ph. Attender: [id number] [facility] Medical 02/22/2021 12:00:00 AM EDT RADHA ([facility]) Outpatient Attender: Lew ROMERO 02/08/20 09:42:05 AM EDT - 02/07/2021 10:29:27 AM EDT DocuTap ([facility] ) Outpatient Attender: Katie ROMERO Main Office 02/06/2021 02:00:00 PM EDT MEDENT ([facility]) Outpatient Attender: Neva ROMERO Main office [facility] 02/05/2021 11:45:00 AM EDT MEDENT ([facility]) Outpatient Attender: MICHAEL ROMERO Physical Therapy 01/29/2021 0 8:30:00 AM EDT MEDENT ([facility]) Jeanmarie Fleming MD: [address] [place] [phone], Ph. Attender: Jeanmarie Fleming MD [facility] Medical 01/23/2021 12:00:00 AM EDT RADHA ([facility]) Jeanmarie Fleming MD: [address] [place] [address] [phone], Ph. Attender: Jeanmarie Fleming MD [facility] Medical 01/23/2021 12:00:00 AM EDT [place] ([facility]) Lo Hernandez [facility]: [address], [place] [address], Ph. Attender: Lo Hernandez [facility] Medical 01/03/2021 12:00:00 AM EDT [place] ([facility]) Lo Hernandez [facility]: [address], [place] [address], Ph. Attender: Lo Hernandez [facility] Medical 01/03/2021 12:00:00 AM EDT [place] ([facility]) oL Hernandez [facility]: [address], [place] [address], Ph. Attender: Lo Hernandez [facility] Medical 01/03/2021 12:00:00 AM EDT [place] ([facility]) Lo Hernandez [facility]: [address], [place] [address], Ph. Attender: Lo Hernandez [facility] Medical 01/03/2021 12:00:00 AM EDT [place] ([facility]) Kevin Us RPA-C: [address], [place] [address], Ph. Attender: KEVIN US RPA-C [facility] Medical 12/11/2020 12:00:00 AM EDT RDAHA ([facility]) CHAPITO IgnacioC: [address], [place] [address], Ph. Attender: KEVIN GATICA [facility] Medical 12/11/2020 12:00:00 AM EDT RADHA ([facility]) Kevin Us RPA-C: [address], [place] [address], Ph. Attender: KEVIN US RPA-C [facility] Medical 12/11/2020 12:00:00 AM EDT RADHA ([facility]) Kevin Us RPA-C: [address], [place] [address], Ph. Attender: KEVIN GATICA [facility] Medical 12/11/2020 12:00:00 AM EDT RADHA ([facility]) Aure Grigsbyjayjohn, COOK DESSERT: [address], [place] [address], Ph. Attender: Aure Nayak [facility] - Main Office 12/11/2020 12:00:00 AM EDT AMANDEEP CALI ([facility]) [facility]: [address] [place] [address], Ph. Attender: Lo Hernandez [facility] Medical 11/29/2020 12:00:00 AM EDT RADHA ([facility]) REGULO Hanson: [address], [place] [address], Ph. Attender: Lo Hernandez [facility] Medical 11/29/2020 12:00:00 AM EDT RADHA ([facility]) Lo Hernandez [facility]: [address], [place] [address], Ph. Attender: Lo Hernandez [facility] Medical 11/29/2020 12:00:00 AM EDT RADHA ([facility]) Lo Hernandez [facility]: [address], [place] [address], Ph. Attender: Lo Hernandez [facility] Medical 11/29/2020 12:00:00 AM EDT RADHA ([facility]) Lo Hernandez [facility]: [address], [place] [address], Ph. Attender: Lo Hernandez [facility] Medical 11/29/2020 12:00:00 AM EDT [place] ([facility]) OFFICE OUTPATIENT VISIT 15 MINUTES Attender: Alexis ROMERO Physical Therapy 11/28/2020 08:30:00 AM EDT CAL[place] ([facility] ) Lo Hernandez [facility]: [address], [place] [address], Ph. Attender: Lo Hernandez [facility] Medical 11/22/2020 12:00:00 AM EDT RADHA ([facility]) Lo Hernandez [facility]: [address], [place] [address], Ph. Attender: Lo Hernandez [facility] Medical 11/22/2020 12:00:00 AM EDT RADHA ([facility]) Lo Hernandez [facility]: [address], [place] [address], Ph. Attender: Lo RDZ [facility] Medical 11/22/2020 12:00:00 AM EDT RADHA ([facility]) [facility]: [address], [place] [address], Ph. Attender: [facility]L [facility] 11/22/2020 12:00:00 AM EDT RADHA ([facility]) Anam Esquivel MD: [address], [place] [address], Ph. Attender: Anam Esquivel MD [place] - [facility] - Main Office 11/22/2020 12:00:00 AM EDT RADHA ([facility]) [facility]: [address], [place] [address], Ph. Attender: Lo [facility] 11/22/2020 12:00:00 AM EDT RADHA ([facility]) [facility]: [address], [place] [address], Ph. Attender: Lo [facility] 11/22/2020 12:00:00 AM EDT RADHA ([facility]) Anam Esquivel MD: [address], [place] [address], Ph. Attender: Anam Esquivel MD [place] - [facility] - [facility] Office 11/22/2020 12:00:00 AM EDT RADHA ([facility]) Outpatient Attender: TAE ELIZONDO [facility] 08:20:25 AM EDT - 11/20/2020 08:55:28 AM EDT [facility] ([facility]) Anam Esquivel MD: [address], [place] [address], Ph. [phone] Attender: Anam BUCKLEY - [facility] 11/19/2020 12:00:00 AM EDT RADHA ([facility]) Anam Esquivel MD: [address], [place] [address], Ph. [phone] Attender: Anam BUCKLEY - [facility] 11/19/2020 12:00:00 AM EDT RADHA ([facility]) Anam Esquivel MD: [address], [place] [address], Ph. [phone] Attender: Anam BUCKLEY - [facility] 11/19/2020 12:00:00 AM EDT RADHA ([facility]) Anam Esquivel MD: [address], [place] [address], Ph. Attender: Anam BUCKLEY - [facility] 10/31/2020 12:00:00 AM EDT RADHA ([facility]) Anam Esquivel MD: [address], [place] [address], Ph. Attender: Anam BUCKLEY - [facility] 10/31/2020 12:00:00 AM EDT RADHA ([facility]) Anam Esquivel MD: [address], [place] [address], Ph. Attender: Anam BUCKLYE - [facility] 10/31/2020 12:00:00 AM EDT RADHA ([facility]) Anam Esquivel MD: [address], [place] [address], Ph. Attender: Anam Esquivel [place] [facility] - [facility] 10/31/2020 12:00:00 AM EDT RADHA ([facility]) Anam Esquivel MD: [address], [place] [address], Ph. [phone] Attender: Anam Esquivel [place] [facility] - [facility] 10/26/2020 12:00:00 AM EDT RADHA ([facility]) Anam Esquivel MD: [address], [place] [address], Ph. [phone] Attender: Anam Esquivel [place] - [facility] 10/26/2020 12:00:00 AM EDT RADHA ([facility]) Anam Esquivel MD: [address], [place] [address], Ph. [phone] Attender: Anam Esquivel [place] - [facility] 10/26/2020 12:00:00 AM EDT RADHA ([facility]) Anam Esquivel MD: [address], [place] [address], Ph. [phone] Attender: Anam Esquivel [place] - [facility] 10/26/2020 12:00:00 AM EDT RAD[facility] ([facility]) Anam Esquivel MD: [address], [place] [address], Ph. [phone] Attender: Anam Esquivel [place] - [facility] 10/26/2020 12:00:00 AM EDT RAD[facility] ([facility]) Anam Esquivel MD: [address], [place] [address], Ph. Attender: Anam Esquivel [place] - [facility] 10/18/2020 12:00:00 AM EDT RAD[facility] ([facility]) Anam Esquivel MD: [address], [place] [address], Ph. Attender: Anam Esquivel [place] - [facility] 10/18/2020 12:00:00 AM EDT RAD[facility] ([facility]) Anam Esquivel MD: [address], [place] [address], Ph. Attender: Anam BUCKLEY - [facility] 10/18/2020 12:00:00 AM EDT RAD[facility] ([facility]) Anam Esquivel MD: [address], [place] [address], Ph. Attender: Anam BUCKLEY - [facility] 10/18/2020 12:00:00 AM EDT RADHA ([facility]) Anam Esquivel MD: [address], [place] [address], Ph. Attender: Anam BUCKLEY - [facility] 10/18/2020 12:00:00 AM EDT RADHA ([facility]) Anam Esquivel MD: [address], [place] [address], Ph. Attender: Anam BUCKLEY - [facility] 10/18/2020 12:00:00 AM EDT RADHA ([facility]) Outpatient Attender: Alexis ROMERO Physical Therapy 08:45:00 AM EDT MEDENT ([facility]) Anam Esquivel MD: [address], [place] [address], Ph. [phone] Attender: Anam Esquivel MD [place] [facility] Office 10/15/2020 12:00:00 AM EDT RADHA ([facility]) Anam Esquivel MD: [address], [place] [address], Ph. [phone] Attender: Anam Esquivel [place] - [facility] 10/15/2020 12:00:00 AM EDT RADHA ([facility]) Anam Esquivel MD: [address], [place] [address], Ph. [phone] Attender: Anam Esquivel [place] - [facility] 10/15/2020 12:00:00 AM EDT RADHA ([facility]) Anam Esquivel MD: [address], [place] [address], Ph. [phone] Attender: Anam Esquivel [place] - [facility] 10/15/2020 12:00:00 AM EDT RADHA ([facility]) Anam Esquivel MD: [address], [place] [address], Ph. [phone] Attender: Anam Esquivel [place] - [facility] 10/15/2020 12:00:00 AM EDT RADHA ([facility]) Anam Esquivel MD: [address], [place] [address], Ph. [phone] Attender: Anam Esquivel [place] [facility] Office 10/15/2020 12:00:00 AM EDT RADHA ([facility]) Anam Esquivel MD: [address] [facility] [address], [place] [address], Ph. [phone] Attender: Anam Esquivel MD [facility] - Main Office 10/15/2020 12:00:00 AM EDT RADHA ([facility]) Lo Hernandez [facility]: [address], [place] [address], Ph. Attender: Lo Hernandez [facility] Medical 10/10/2020 12:00:00 AM EDT RADHA ([facility]) [facility]: [address], [place] [address], Ph. Attender: Lo Hernandez [facility] Medical 10/10/2020 12:00:00 AM EDT RADHA ([facility]) [facility]: [address], [place] [address], Ph. Attender: Lo Hernandez [facility] Medical 10/10/2020 12:00:00 AM EDT [place] ([facility]) MARIN HansonPAnali: [address], [place] [address], Ph. Attender: Lo Hernandez [facility] Medical 10/10/2020 12:00:00 AM EDT RAD[facility] ([facility]) [facility]: [address], [place] [address], Ph. Attender: Lo Hernandez [facility] Medical 10/10/2020 12:00:00 AM EDT RADHA ([facility]) KENDELL Hanson-BC: [address], [place] [address], Ph. Attender: Lo Hernandez [facility] Medical 10/10/2020 12:00:00 AM EDT RAD[facility] ([facility]) Lo Hernandez [facility]: [address], [place] [address], Ph. Attender: Lo Hernandez [facility] Medical 10/10/2020 12:00:00 AM EDT RADHA ([facility]) Outpatient Attender: Katie ORMERO Main Office 10/08/2020 08:45:00 AM EDT [place] ([facility]) Lo Hernandez [facility]: [address], [place] [address], Ph. Attender: Lo Hernandez [facility] Medical 10/02/2020 12:00:00 AM EDT RADHA ([facility]) Lo Hernandez [facility]: [address], [place] [address], Ph. Attender: Lo Hernandez [facility] Medical 10/02/2020 12:00:00 AM EDT RADHA ([facility]) Lo Hernandez [facility]: [address], [place] [address], Ph. Attender: Lo Hernandez [facility] Medical 10/02/2020 12:00:00 AM EDT RAD[facility] ([facility]) Lo Hernandez [facility]: [address], [place] [address], Ph. Attender: Lo Hernandez [facility] Medical 10/02/2020 12:00:00 AM EDT RADHA ([facility]) Anam Esquivel MD: [address], [address], [place] [address], Ph. Attender: Anam Esquivel MD [place] - [facility] 10/02/2020 12:00:00 AM EDT RADHA ([facility]) [facility]: [address], [place] [address], Ph. Attender: Lo Hernandez [facility] Medical 10/02/2020 12:00:00 AM EDT RADHA ([facility]) [facility]: [address], [place] [address], Ph. Attender: Lo Hernandez [facility] Medical 10/02/2020 12:00:00 AM EDT RADHA ([facility]) Anam Esquivel MD: [address], [address], [place] [address], Ph. Attender: Anam Esquivel MD [place] - [facility] 10/02/2020 12:00:00 AM EDT RADHA ([facility]) Anam Esquivel MD: [address], [address], [place] [address], Ph. Attender: Anam BUCKLEY - [facility] 10/02/2020 12:00:00 AM EDT RADHA ([facility]) Anam Esquivel MD: [address], [address], [place] [address], Ph. Attender: Anam BUCKLEY - [facility] - [facility] Office 10/02/2020 12:00:00 AM EDT RADHA ([facility]) Anam Esquivel MD: [address], [address], [place] [address], Ph. Attender: Anam Esquivel [place] - [facility] Office 10/02/2020 12:00:00 AM EDT RADHA ([facility]) Anam Esquivel MD: [address], [address], [place] [address], Ph. Attender: Anam Esquivel [place] [facility] - [facility] Office 10/02/2020 12:00:00 AM EDT RAD[facility] ([facility]) Anam Esquivel MD: [address], [place] [address], Ph. Attender: Anam Esquivel [place] - [facility] - [facility] 10/02/2020 12:00:00 AM EDT [facility] ([facility] [facility]) [facility]: [address] [place] [address], Ph. Attender: Lo RDZ [facility] Medical 10/02/2020 12:00:00 AM EDT RADHA ([facility]) Anam Esquivel MD: [id number], [place] [address], Ph. Attender: Anam Esquivel MD [place] - [facility] 10/02/2020 12:00:00 AM EDT RADHA ([facility]) Outpatient Attender: Neva ROMERO [facility] 09/20/2020 02:30:00 PM EDT [place] ([facility], JAYSON) Outpatient Attender: Alexis ROMERO Physical Therapy 10:45:00 AM EDT MEDENT ([facility]) Jeanmarie Fleming MD: [address] [place] [address], Ph. Attender: Jeanmarie Fleming MD [facility] Medical 08/20/2020 12:00:00 AM EDT RADHA ([facility]) Jeanmarie Fleming MD: [address] [place] [address], Ph. Attender: Jeanmarie Fleming MD [facility] Medical 08/20/2020 12:00:00 AM EDT RADHA ([facility]) Jeanmarie Fleming MD: [address] [place] [address], Ph. Attender: Jeanmarie Fleming MD [facility] Medical 08/20/2020 12:00:00 AM EDT RADHA ([facility]) Jeanmarie Fleming MD: [address] [place] [address], Ph. Attender: Jeanmarie Fleming MD [facility] Medical 08/20/2020 12:00:00 AM EDT RADHA ([facility]) Jeanmarie Fleming MD: [address] [place] [address], Ph. Attender: Jeanmarie Fleming MD [facility] Medical 08/20/2020 12:00:00 AM EDT RADHA ([facility]) Jeanmarie Fleming MD: [address] [place] [address], Ph. Attender: Jeanmarie Fleming MD [facility] Medical 08/20/2020 12:00:00 AM EDT RADHA ([facility]) Jeanmarie Fleming MD: [address] [place] [address], Ph. Attender: Jeanmarie Fleming MD [facility] Medical 08/20/2020 12:00:00 AM EDT RADHA ([facility]) Jeanmarie Fleming MD: [address] [place] [address], Ph. Attender: Jeanmarie Fleming MD [facility] Medical 08/20/2020 12:00:00 AM EDT RADHA ([facility]) Outpatient Attender: Matthew Bianchi MD Physical Therapy 07/16/2020 0 1:30:00 PM EDT MEDENT ([facility]) Office Visit Attender: CASANDRA ROMERO Physical Therapy 08/2020 12:00:00 PM EST MEDENT ([facility]) Office Visit Attender: Neva ROMERO Main office - [facility] 07/02/2020 07:30:00 AM EST MEDENT ([facility]) Preadmit Attender: OTHER PHYSICIANConsultant: CATHERINE ROMERO 07/02/2020 12:11:00 AM [facility] Outpatient Attender: CASANDRA Lambert tender: OTHER PHYSICIANConsultant: CATHERINE ROMERO 06/06/2020 03:38:00 PM EST - 07/01/2020 12:00:00 AM [facility] Patient discharged. REGULO HansonBC: [address] [place] [address], Ph. Attender: Lo Hernandez [facility] Medical 05/31/2020 12:00:00 AM EST RADHA ([facility]) REGULO HansonBC: [address] [place] [address], Ph. Attender: Lo Hernandez [facility] Medical 05/31/2020 12:00:00 AM EST RADHA ([facility]) REGULO HansonBC: [address] [place] [address], Ph. Attender: Lo Hernandez [facility] Medical 05/31/2020 12:00:00 AM EST RADHA ([facility]) [facility] [address], [place] [address], Ph. Attender: Lo Hernandez [facility] Medical 05/31/2020 12:00:00 AM EST RADHA ([facility]) [facility] [address], [place] [address], Ph. Attender: Lo Hernandez [facility] Medical 05/31/2020 12:00:00 AM EST RADHA ([facility]) MARIN HansonPAnali: [address], [place] [address], Ph. Attender: Lo Hernandez [facility] Medical 05/31/2020 12:00:00 AM EST RADHA ([facility]) MARIN HansonPAnali: [address], [place] [address], Ph. Attender: Lo Hernandez [facility] Medical 05/31/2020 12:00:00 AM EST RADHA ([facility]) [facility] [address], [place] [address], Ph. Attender: Lo Hernandez [facility] Medical 05/31/2020 12:00:00 AM EST RADHA ([facility]) MARIN HansonPAnali: [address], [place] [address], Ph. Attender: Lo Hernandez [facility] Medical 05/31/2020 12:00:00 AM EST RADHA ([facility]) Lo Hernandez [facility]: [address], [place] [address], Ph. Attender: Lo Hernandez [facility] Medical 05/23/2020 12:00:00 AM EST RADHA ([facility]) Lo Hernandez [facility]: [address], [place] [address], Ph. Attender: Lo Hernandez [facility] Medical 05/23/2020 12:00:00 AM EST RADHA ([facility]) Lo Hernandez [facility]: [address], [place] [address], Ph. Attender: Lo Hernandez [facility] Medical 05/23/2020 12:00:00 AM EST RADHA ([facility]) Lo Hernandez [facility]: [address], [place] [address], Ph. Attender: Lo Hernandez [facility] Medical 05/23/2020 12:00:00 AM EST RADHA ([facility]) Lo Hernandez [facility]: [address], [place] [address], Ph. Attender: Lo Hernandez [facility] Medical 05/23/2020 12:00:00 AM EST RADHA ([facility]) Lo Hernandez [facility]: [address], [place] [address], Ph. Attender: Lo Hernandez [facility] Medical 05/23/2020 12:00:00 AM EST RADHA ([facility]) Lo Hernandez [facility]: [address], [place] [address], Ph. Attender: Lo Hernandez [facility] Medical 05/23/2020 12:00:00 AM EST RADHA ([facility]) Lo Hernandez [facility]: [address], [place] [address], Ph. Attender: Lo Hernandez [facility] Medical 05/23/2020 12:00:00 AM EST RADHA ([facility]) Lo Hernandez [facility]: [address] [place] [address], Ph. Attender: Lo Hernandez [facility] Medical 05/23/2020 12:00:00 AM EST RADHA ([facility]) Lo Hernandez [facility]: [address] [place] [address], Ph. Attender: Lo Hernandez [facility] Medical 05/23/2020 12:00:00 AM EST RADHA ([facility]) Outpatient Attender: CASANDRA ROMERO Physical Therapy 05/04 12:45:00 PM EST MEDENT ([facility]) Jeanmarie Fleming MD: [address] [place] [address], Ph. Attender: Jeanmarie Fleming MD [facility] Medical 05/03/2020 12:00:00 AM EST RADHA ([facility]) Jeanmarie Fleming MD: [address] [place] [address], Ph. Attender: Jeanmarie Fleming MD [facility] Medical 05/03/2020 12:00:00 AM EST RADHA ([facility]) Jeanmarie Fleming MD: [address] [place] [address], Ph. Attender: Jeanmarie Fleming MD [facility] Medical 05/03/2020 12:00:00 AM EST RADHA ([facility]) Jeanmarie Fleming MD: [address] [place] [address], Ph. Attender: Jeanmarie Fleming MD [facility] Medical 05/03/2020 12:00:00 AM EST RADHA ([facility]) Jeanmarie Fleming MD: [address] [place] [address], Ph. Attender: Jeanmarie Fleming MD [facility] Medical 05/03/2020 12:00:00 AM EST RADHA ([facility]) Jeanmarie Fleming MD: [address] [place] [address], Ph. Attender: Jeanmarie Fleming MD [facility] Medical 05/03/2020 12:00:00 AM EST RADHA ([facility]) Jeanmarie Fleming MD: [address] [place] [address], Ph. Attender: Jeanmarie Fleming MD [facility] Medical 05/03/2020 12:00:00 AM EST RADHA ([facility]) Jeanmarie Fleming MD: [address] [place] [address], Ph. Attender: Jeanmarie Fleming MD [facility] Medical 05/03/2020 12:00:00 AM EST RADHA ([facility]) Jeanmarie Fleming MD: [address] [place] [address], Ph. Attender: Jeanmarie Fleming MD [facility] Medical 05/03/2020 12:00:00 AM EST RADHA ([facility]) Jeanmarie Fleming MD: [address] [place] [address], Ph. Attender: Jeanmarie Fleming MD [facility] Medical 05/03/2020 12:00:00 AM EST RADHA ([facility]) Jeanmarie Fleming MD: [address] [place] [address], Ph. Attender: Jeanmarie Fleming MD [facility] Medical 05/03/2020 12:00:00 AM EST RADHA ([facility]) OFFICE OUTPATIENT VISIT 15 MINUTES Attender: CASANDRA ROMERO Ph ysical Therapy 04/10/2020 10:00:00 AM EST MEDENT ([facility]) REGULO Hanson: [address], [place] [address], Ph. Attender: Lo Hernandez [facility] Medical 03/01/2020 12:00:00 AM EDT RADHA ([facility]) REGULO HansonBC: [address], [place] [address], Ph. Attender: Lo Hernandez [facility] Medical 03/01/2020 12:00:00 AM EDT RADHA ([facility]) REGULO Hanson: [address], [place] [address], Ph. Attender: Lo Hernandez [facility] Medical 03/01/2020 12:00:00 AM EDT RADHA ([facility]) REGULO HansonBC: [address], [place] [address], Ph. Attender: Lo Hernandez [facility] Medical 03/01/2020 12:00:00 AM EDT RADHA ([facility]) Lo Hernandez [facility]: [address], [place] [address], Ph. Attender: Lo Hernandez [facility] Medical 03/01/2020 12:00:00 AM EDT RADHA ([facility]) Lo Hernandez [facility]: [address], [place] [address], Ph. Attender: Lo Hernandez [facility] Medical 03/01/2020 12:00:00 AM EDT [place] ([facility]) Lo Hernandez [facility]: [address], [place] [address], Ph. Attender: Lo Hernandez [facility] Medical 03/01/2020 12:00:00 AM EDT [place] ([facility]) Lo Hernandez [facility]: [address], [place] [address], Ph. Attender: Lo Hernandez [facility] Medical 03/01/2020 12:00:00 AM EDT RADHA ([facility]) Lo Hernandez [facility]: [address], [place] [address], Ph. Attender: Lo Hernandez [facility] Medical 03/01/2020 12:00:00 AM EDT [place] ([facility]) Lo Hernandez [facility]: [address], [place] [address], Ph. Attender: Lo RDZ [facility] Medical 03/01/2020 12:00:00 AM EDT [facility]) [facility]: [address], [place] [address], Ph. Att[facility]: [facility] 03/01/2020 12:00:00 AM EDT [facility]) [facility]: [address], [place] [address], Ph. Att[facility]: [facility] 03/01/2020 12:00:00 AM EDT [place] ([facility]) Outpatient Attender: KENDELL RDZ 02/22/2020 03:12:01 PM EDT [facility] OFFICE OUTPATIENT VISIT 15 MINUTES Attender: CASANDRA ROMERO Ph ysical Therapy 02/03/2020 10:00:00 AM EDT MEDENT ([facility]) OFFICE OUTPATIENT VISIT 15 MINUTES Attender: CASANDRA ROMERO Ph ysical Therapy 01/13/2020 09:30:00 AM EDT MEDENT ([facility]) Outpatient Attender: Neva ROMERO Main office - [facility] 01/03/2020 08:30:00 AM EDT MEDENT ([facility]) Immunizations Vaccine Date Status Description Data Source(s) COVID-19, mRNA, LNP-S, PF, 30 mcg/0.3 mL dose 01/15/2021 12: 00:00 AM EDT completed 01/15/2021 [place] ([facility]) COVID-19, mRNA, LNP-S, PF, 30 mcg/0.3 mL dose 01/15/2021 12: 00:00 AM EDT completed 01/15/2021 [place] ([facility]) COVID-19 VACCINE Pfizer 01/15/2021 12:00:00 AM EDT completed [facility] Vaccine Series Complete: YESThis Data wa s Submitted to [facility] Via [employer]. COVID-19, mRNA, LNP-S, PF, 30 mcg/0.3 mL dose 12/25/2020 12: 00:00 AM EDT completed 12/25/2020 [place] ([facility]) COVID-19, mRNA, LNP-S, PF, 30 mcg/0.3 mL dose 12/25/2020 12: 00:00 AM EDT completed 12/25/2020 RADHA ([facility]) COVID-19 VACCINE Pfizer 12/25/2020 12:00:00 AM EDT completed [facility] Vaccine Series Complete: NOThis Data was Submitted to [facility] [employer]. Medications Medication Brand Name Start Date Product Form Dose Route Admi nistrative Instructions Pharmacy Instructions Status Indications Reaction Description Data Source(s) Diclofenac Sodium 0.01 MG/MG Topical Gel [Voltaren] Voltaren 02/05/2021 12:00:00 AM EDT active [facility] ([facility]) pregabalin 75 MG Oral Capsule Pregabalin 02/05/2021 12:00:00 AM EDT ORAL active [facility] ([facility]) 24 HR Nicotine 0.292 MG/HR Transdermal Patch [Nicoderm C-Q] Nicoderm CQ 02/05/2021 12:00:00 AM EDT active MEDENT ([facility]) pregabalin 75 MG Oral Capsule pregabalin 75 mg capsule prega balin 75 mg capsule 12/11/2020 12:00:00 AM EDT completed pregabalin 75 MG Oral Capsule RADHA ([facility]) Cyclobenzaprine hydrochloride 5 MG Oral Tablet Cyclobenzapri ne HCL 07/16/2020 12:00:00 AM EDT ORAL active M EDENT ([facility] ) pregabalin 75 MG Oral Capsule Pregabalin 07/06/2020 12:00:00 AM EST ORAL active MEDENT ([facility] ) duloxetine 60 MG Delayed Release Oral Capsule [Cymbalta] Cym harika 04/10/2020 12:00:00 AM EST ORAL active M EDENT ([facility] ) pregabalin 75 MG Oral Capsule Pregabalin 04/04/2020 12:00:00 AM EST ORAL active [facility] ([facility]) pregabalin 75 MG Oral Capsule Pregabalin 01/19/2020 12:00:00 AM EDT ORAL completed [facility]ENT ([facility] ) pregabalin 50 MG Oral Capsule Pregabalin 11/18/2019 12:00:00 AM EDT ORAL completed MEDENT ([facility] ) Metformin hydrochloride 500 MG Oral Tabl et metformin 500 mg tablet Take 1 tablet twice a day by oral route. metformin 500 mg tablet Take 1 tablet tw ice a day by oral route. 1 completed m etformin hydrochloride 500 MG Oral Tablet RADHA ([facility]) Metformin hydrochloride 500 MG Oral Tabl et metformin 500 mg tablet Take 1 tablet every day by oral route. metformin 500 mg tablet Take 1 tablet ev franklin day by oral route. 1 completed me tformin hydrochloride 500 MG Oral Tablet RADHA ([facility]) gabapentin 400 MG Oral Capsule gabapentin 400 mg capsu le gabapentin 400 mg capsule completed gabapentin 400 MG Oral Capsule RAD[facility] ([facility]) Ibuprofen 800 MG Oral Tablet ibuprofen 800 mg tablet ibuprofen 8 00 mg tablet completed ibuprofen 800 MG Oral Tablet RAD[facility] ([facility]) pregabalin 50 MG Oral Capsule pregabalin 50 mg capsule prega balin 50 mg capsule completed pregabalin 50 MG Oral Capsule [facility] ([facility]) Cyclobenzaprine hydrochloride 5 MG Oral Tablet cyclobenzaprine 5 mg tablet TAKE TWO TABLETS BY MOUTH TWICE A DAY cyclobenzaprine 5 mg tablet TAKE TWO TAB LETS BY MOUTH TWICE A DAY completed cyclobenzaprine hydrochloride 5 MG Oral Tablet RADHA ([facility]) gabapentin 400 MG Oral Capsule gabapenti n 400 mg capsule TAKE ONE CAPSULE BY MOUTH THREE TIMES A DAY IN ADDITION TO 800MG gabapentin 400 mg capsule TAKE ONE CAPSULE BY MOUTH THREE TIMES A DAY IN ADDITION TO 800MG completed gabapentin 400 MG Oral Capsule RADHA ([facility]) Cyclobenzaprine hydrochloride 5 MG Oral Tablet cyclobenzaprine 5 mg tablet TAKE TWO TABLETS BY MOUTH TWICE A DAY cyclobenzaprine 5 mg tablet TAKE TWO TAB LETS BY MOUTH TWICE A DAY completed cyclobenzaprine hydrochloride 5 MG Oral Tablet RADHA ([facility]) Cyclobenzaprine hydrochloride 5 MG Oral Tablet cyclobenzaprine 5 mg tablet TAKE TWO TABLETS BY MOUTH TWICE A DAY cyclobenzaprine 5 mg tablet TAKE TWO TAB LETS BY MOUTH TWICE A DAY completed cyclobenzaprine hydrochloride 5 MG Oral Tablet RADHA ([facility]) duloxetine 20 MG Delayed Release Oral Ca psule duloxetine 20 mg capsule,delayed release TAKE TWO CAPSULES BY MOUTH EVERY MORNING duloxetine 20 mg capsule,delayed release TAKE TWO CAPSULES BY MOUTH EVERY MORNING completed duloxetine 20 MG Delayed Release Oral Capsule [facility] ([facility]) gabapentin 400 MG Oral Capsule gabapentin 400 mg capsu le gabapentin 400 mg capsule completed gabapentin 400 MG Oral Capsule RAD[facility] ([facility]) gabapentin 400 MG Oral Capsule gabapentin 400 mg capsu le gabapentin 400 mg capsule completed gabapentin 400 MG Oral Capsule RADHA ([facility]) gabapentin 400 MG Oral Capsule gabapentin 400 mg capsu le gabapentin 400 mg capsule completed gabapentin 400 MG Oral Capsule RADHA ([facility]) gabapentin 800 MG Oral Tablet gabapentin 800 mg tablet gabap entin 800 mg tablet completed gabapentin 800 MG Oral Tablet RADHA ([facility]) gabapentin 400 MG Oral Capsule gabapenti n 400 mg capsule TAKE ONE CAPSULE BY MOUTH THREE TIMES A DAY IN ADDITION TO 800MG gabapentin 400 mg capsule TAKE ONE CAPSULE BY MOUTH THREE TIMES A DAY IN ADDITION TO 800MG completed gabapentin 400 MG Oral Capsule [facility] ([facility]) gabapentin 800 MG Oral Tablet gabapentin 800 mg tablet TAKE ONE TABLET BY MOUTH THREE TIMES A DAY gabapentin 800 mg tablet TAKE ONE TABLET BY MOUTH THREE TIMES A DAY completed gabapentin 800 M G Oral Tablet RADHA ([facility]) duloxetine 20 MG Delayed Release Oral Ca psule duloxetine 20 mg capsule,delayed release TAKE TWO CAPSULES BY MOUTH EVERY MORNING duloxetine 20 mg capsule,delayed release TAKE TWO CAPSULES BY MOUTH EVERY MORNING completed duloxetine 20 MG Delayed Release Oral Capsule RADHA ([facility]) gabapentin 400 MG Oral Capsule gabapenti n 400 mg capsule TAKE ONE CAPSULE BY MOUTH THREE TIMES A DAY IN ADDITION TO 800MG gabapentin 400 mg capsule TAKE ONE CAPSULE BY MOUTH THREE TIMES A DAY IN ADDITION TO 800MG completed gabapentin 400 MG Oral Capsule [facility] ([facility]) Cyclobenzaprine hydrochloride 5 MG Oral Tablet cyclobenzaprine 5 mg tablet TAKE TWO TABLETS BY MOUTH TWICE A DAY cyclobenzaprine 5 mg tablet TAKE TWO TAB LETS BY MOUTH TWICE A DAY completed cyclobenzaprine hydrochloride 5 MG Oral Tablet [facility] ([facility]) Ibuprofen 800 MG Oral Tablet ibuprofen 800 mg tablet ibuprofen 8 00 mg tablet completed ibuprofen 800 MG Oral Tablet RAD[facility] ([facility]) duloxetine 20 MG Delayed Release Oral Ca psule duloxetine 20 mg capsule,delayed release TAKE TWO CAPSULES BY MOUTH EVERY MORNING duloxetine 20 mg capsule,delayed release TAKE TWO CAPSULES BY MOUTH EVERY MORNING completed duloxetine 20 MG Delayed Release Oral Capsule [facility] ([facility]) Cyclobenzaprine hydrochloride 5 MG Oral Tablet cyclobenzaprine 5 mg tablet TAKE TWO TABLETS BY MOUTH TWICE A DAY cyclobenzaprine 5 mg tablet TAKE TWO TAB LETS BY MOUTH TWICE A DAY completed cyclobenzaprine hydrochloride 5 MG Oral Tablet [facility] ([facility]) duloxetine 20 MG Delayed Release Oral Ca psule duloxetine 20 mg capsule,delayed release TAKE TWO CAPSULES BY MOUTH EVERY MORNING duloxetine 20 mg capsule,delayed release TAKE TWO CAPSULES BY MOUTH EVERY MORNING completed duloxetine 20 MG Delayed Release Oral Capsule [place] ([facility]) pregabalin 50 MG Oral Capsule pregabalin 50 mg capsule prega balin 50 mg capsule completed pregabalin 50 MG Oral Capsule [place] ([facility]) gabapentin 800 MG Oral Tablet gabapentin 800 mg tablet TAKE ONE TABLET BY MOUTH THREE TIMES A DAY gabapentin 800 mg tablet TAKE ONE TABLET BY MOUTH THREE TIMES A DAY completed gabapentin 800 M G Oral Tablet [facility] ([facility]) gabapentin 400 MG Oral Capsule gabapenti n 400 mg capsule TAKE ONE CAPSULE BY MOUTH THREE TIMES A DAY IN ADDITION TO 800MG gabapentin 400 mg capsule TAKE ONE CAPSULE BY MOUTH THREE TIMES A DAY IN ADDITION TO 800MG completed gabapentin 400 MG Oral Capsule [facility] ([facility]) pregabalin 50 MG Oral Capsule pregabalin 50 mg capsule prega balin 50 mg capsule completed pregabalin 50 MG Oral Capsule [facility] ([facility]) pregabalin 50 MG Oral Capsule pregabalin 50 mg capsule prega balin 50 mg capsule completed pregabalin 50 MG Oral Capsule [place] ([facility]) Metformin hydrochloride 500 MG Oral Tabl et metformin 500 mg tablet Take 1 tablet twice a day by oral route. metformin 500 mg tablet Take 1 tablet tw ice a day by oral route. 1 completed m etformin hydrochloride 500 MG Oral Tablet [facility] ([facility]) Ibuprofen 800 MG Oral Tablet ibuprofen 800 mg tablet ibuprofen 8 00 mg tablet completed ibuprofen 800 MG Oral Tablet [facility] ([facility]) gabapentin 400 MG Oral Capsule gabapenti n 400 mg capsule TAKE ONE CAPSULE BY MOUTH THREE TIMES A DAY IN ADDITION TO 800MG gabapentin 400 mg capsule TAKE ONE CAPSULE BY MOUTH THREE TIMES A DAY IN ADDITION TO 800MG completed gabapentin 400 MG Oral Capsule [place] ([facility]) gabapentin 800 MG Oral Tablet gabapentin 800 mg tablet gabap entin 800 mg tablet completed gabapentin 800 MG Oral Tablet [place] ([facility]) gabapentin 400 MG Oral Capsule gabapentin 400 mg capsu le gabapentin 400 mg capsule completed gabapentin 400 MG Oral Capsule [place] ([facility]) Cyclobenzaprine hydrochloride 5 MG Oral Tablet cyclobenzaprine 5 mg tablet TAKE TWO TABLETS BY MOUTH TWICE A DAY cyclobenzaprine 5 mg tablet TAKE TWO TAB LETS BY MOUTH TWICE A DAY completed cyclobenzaprine hydrochloride 5 MG Oral Tablet [place]) Cyclobenzaprine hydrochloride 5 MG Oral Tablet cyclobenzaprine 5 mg tablet TAKE TWO TABLETS BY MOUTH TWICE A DAY cyclobenzaprine 5 mg tablet TAKE TWO TAB LETS BY MOUTH TWICE A DAY completed cyclobenzaprine hydrochloride 5 MG Oral Tablet [place] ([facility]) duloxetine 20 MG Delayed Release Oral Ca psule duloxetine 20 mg capsule,delayed release TAKE TWO CAPSULES BY MOUTH EVERY MORNING duloxetine 20 mg capsule,delayed release TAKE TWO CAPSULES BY MOUTH EVERY MORNING completed duloxetine 20 MG Delayed Release Oral Capsule [place] ([facility]) pregabalin 50 MG Oral Capsule pregabalin 50 mg capsule TAKE ONE CAPSULE BY MOUTH TWICE A DAY MAXIMUM DAILY DOSE 2 DO NOT START UNTIL WEANED OFF OF GABAPENTIN pregabalin 50 mg capsule TAKE ONE CAPSUL E BY MOUTH TWICE A DAY MAXIMUM DAILY DOSE 2 DO NOT START UNTIL WEANED OFF OF GABAPENTIN completed pregabalin 50 MG Oral Capsule AT [facility] ([facility]) pregabalin 50 MG Oral Capsule pregabalin 50 mg capsule prega balin 50 mg capsule completed pregabalin 50 MG Oral Capsule [place] ([facility]) pregabalin 50 MG Oral Capsule pregabalin 50 mg capsule prega balin 50 mg capsule completed pregabalin 50 MG Oral Capsule [place] ([facility]) gabapentin 800 MG Oral Tablet gabapentin 800 mg tablet gabap entin 800 mg tablet completed gabapentin 800 MG Oral Tablet [place] ([facility]) Metformin hydrochloride 500 MG Oral Tabl et metformin 500 mg tablet Take 1 tablet every day by oral route. metformin 500 mg tablet Take 1 tablet by oral route. 1 completed me tformin hydrochloride 500 MG Oral Tablet [facility] ([facility]) gabapentin 800 MG Oral Tablet gabapentin 800 mg tablet TAKE ONE TABLET BY MOUTH THREE TIMES A DAY gabapentin 800 mg tablet TAKE ONE TABLET BY MOUTH THREE TIMES A DAY completed gabapentin 800 M G Oral Tablet [facility] ([facility]) gabapentin 400 MG Oral Capsule gabapentin 400 mg capsu le gabapentin 400 mg capsule completed gabapentin 400 MG Oral Capsule [facility] ([facility]) Ibuprofen 800 MG Oral Tablet ibuprofen 800 mg tablet ibuprofen 8 00 mg tablet completed ibuprofen 800 MG Oral Tablet [facility] ([facility]) duloxetine 20 MG Delayed Release Oral Ca psule duloxetine 20 mg capsule,delayed release TAKE TWO CAPSULES BY MOUTH EVERY MORNING duloxetine 20 mg capsule,delayed release TAKE TWO CAPSULES BY MOUTH EVERY MORNING completed duloxetine 20 MG Delayed Release Oral Capsule [facility] ([facility]) Ibuprofen 800 MG Oral Tablet ibuprofen 800 mg tablet ibuprofen 8 00 mg tablet completed ibuprofen 800 MG Oral Tablet [place] ([facility]) duloxetine 20 MG Delayed Release Oral Ca psule duloxetine 20 mg capsule,delayed release TAKE TWO CAPSULES BY MOUTH EVERY MORNING duloxetine 20 mg capsule,delayed release TAKE TWO CAPSULES BY MOUTH EVERY MORNING completed duloxetine 20 MG Delayed Release Oral Capsule [place] ([facility]) gabapentin 800 MG Oral Tablet gabapentin 800 mg tablet gabap entin 800 mg tablet completed gabapentin 800 MG Oral Tablet [place] ([facility]) gabapentin 800 MG Oral Tablet gabapentin 800 mg tablet gabap entin 800 mg tablet completed gabapentin 800 MG Oral Tablet [place] ([facility]) duloxetine 20 MG Delayed Release Oral Ca psule duloxetine 20 mg capsule,delayed release TAKE TWO CAPSULES BY MOUTH EVERY MORNING duloxetine 20 mg capsule,delayed release TAKE TWO CAPSULES BY MOUTH EVERY MORNING completed duloxetine 20 MG Delayed Release Oral Capsule [place] ([facility]) Cyclobenzaprine hydrochloride 5 MG Oral Tablet cyclobenzaprine 5 mg tablet TAKE TWO TABLETS BY MOUTH TWICE A DAY cyclobenzaprine 5 mg tablet TAKE TWO TAB LETS BY MOUTH TWICE A DAY completed [facility]ide [facility]alin 50 MG Oral Capsule pregabalin 50 mg capsule prega balin 50 mg capsule completed pregabalin 50 MG Oral Capsule [facility] ([facility]) Cyclobenzaprine hydrochloride 5 MG Oral Tablet cyclobe nzaprine 5 mg tablet cyclobenzaprine 5 mg tablet completed cyclobenzaprine hydrochloride 5 MG Oral Tablet [facility] ([facility]) Metformin hydrochloride 500 MG Oral Tabl et metformin 500 mg tablet Take 1 tablet every day by oral route. metformin 500 mg tablet Take 1 tablet ev [place] day by oral route. 1 completed me tformin hydrochloride 500 MG Oral Tablet [facility] ([facility]) gabapentin 800 MG Oral Tablet gabapentin 800 mg tablet TAKE ONE TABLET BY MOUTH THREE TIMES A DAY gabapentin 800 mg tablet TAKE ONE TABLET BY MOUTH THREE TIMES A DAY completed gabapentin 800 M G Oral Tablet [facility] ([facility]) gabapentin 800 MG Oral Tablet gabapentin 800 mg tablet TAKE ONE TABLET BY MOUTH THREE TIMES A DAY gabapentin 800 mg tablet TAKE ONE TABLET BY MOUTH THREE TIMES A DAY completed gabapentin 800 M G Oral Tablet [place] ([facility]) Ibuprofen 800 MG Oral Tablet ibuprofen 800 mg tablet ibuprofen 8 00 mg tablet completed ibuprofen 800 MG Oral Tablet [place] ([facility]) pregabalin 50 MG Oral Capsule pregabalin 50 mg capsule TAKE ONE CAPSULE BY MOUTH TWICE A DAY MAXIMUM DAILY DOSE 2 DO NOT START UNTIL WEANED OFF OF GABAPENTIN pregabalin 50 mg capsule TAKE ONE CAPSUL E BY MOUTH TWICE A DAY MAXIMUM DAILY DOSE 2 DO NOT START UNTIL WEANED OFF OF GABAPENTIN completed [facility]abalin [facility] Met[facility]ide 500 MG Oral Tabl et metformin 500 mg tablet Take 1 tablet every day by oral route. metformin 500 mg tablet Take 1 tablet ev [place] day by oral route. 1 completed me tformin hydrochloride 500 MG Oral Tablet [place] ([facility]) duloxetine 20 MG Delayed Release Oral Ca psule duloxetine 20 mg capsule,delayed release TAKE TWO CAPSULES BY MOUTH EVERY MORNING duloxetine 20 mg capsule,delayed release TAKE TWO CAPSULES BY MOUTH EVERY MORNING completed duloxetine 20 MG Delayed Release Oral Capsule [place] ([facility]) pregabalin 50 MG Oral Capsule pregabalin 50 mg capsule TAKE ONE CAPSULE BY MOUTH TWICE A DAY MAXIMUM DAILY DOSE 2 DO NOT START UNTIL WEANED OFF OF GABAPENTIN pregabalin 50 mg capsule TAKE ONE CAPSUL E BY MOUTH TWICE A DAY MAXIMUM DAILY DOSE 2 DO NOT START UNTIL WEANED OFF OF GABAPENTIN completed pregabalin 50 MG Oral Capsule AT [facility] ([facility]) Cyclobenzaprine hydrochloride 5 MG Oral Tablet cyclobe nzaprine 5 mg tablet cyclobenzaprine 5 mg tablet completed cyclobenzaprine hydrochloride 5 MG Oral Tablet [place] ([facility]) duloxetine 20 MG Delayed Release Oral Ca psule duloxetine 20 mg capsule,delayed release TAKE TWO CAPSULES BY MOUTH EVERY MORNING duloxetine 20 mg capsule,delayed release TAKE TWO CAPSULES BY MOUTH EVERY MORNING completed duloxetine 20 MG Delayed Release Oral Capsule [place] ([facility]) gabapentin 800 MG Oral Tablet gabapentin 800 mg tablet gabap entin 800 mg tablet completed gabapentin 800 MG Oral Tablet [place] ([facility]) gabapentin 400 MG Oral Capsule gabapenti n 400 mg capsule TAKE ONE CAPSULE BY MOUTH THREE TIMES A DAY IN ADDITION TO 800MG gabapentin 400 mg capsule TAKE ONE CAPSULE BY MOUTH THREE TIMES A DAY IN ADDITION TO 800MG completed gabapentin 400 MG Oral Capsule [place] ([facility]) pregabalin 50 MG Oral Capsule pregabalin 50 mg capsule TAKE ONE CAPSULE BY MOUTH TWICE A DAY MAXIMUM DAILY DOSE 2 DO NOT START UNTIL WEANED OFF OF GABAPENTIN pregabalin 50 mg capsule TAKE ONE CAPSUL E BY MOUTH TWICE A DAY MAXIMUM DAILY DOSE 2 DO NOT START UNTIL WEANED OFF OF GABAPENTIN completed pregabalin 50 MG Oral Capsule AT [facility] ([facility]) Cyclobenzaprine hydrochloride 5 MG Oral Tablet cyclobenzaprine 5 mg tablet TAKE TWO TABLETS BY MOUTH TWICE A DAY cyclobenzaprine 5 mg tablet TAKE TWO TAB LETS BY MOUTH TWICE A DAY completed cyclobenzaprine hydrochloride 5 MG Oral Tablet [place] ([facility]) pregabalin 50 MG Oral Capsule pregabalin 50 mg capsule prega balin 50 mg capsule completed pregabalin 50 MG Oral Capsule [facility]) duloxetine 20 MG Delayed Release Oral Ca psule duloxetine 20 mg capsule,delayed release TAKE TWO CAPSULES BY MOUTH EVERY MORNING duloxetine 20 mg capsule,delayed release TAKE TWO CAPSULES BY MOUTH EVERY MORNING completed duloxetine 20 MG Delayed Release Oral Capsule [place] ([facility]) gabapentin 400 MG Oral Capsule gabapentin 400 mg capsu le gabapentin 400 mg capsule completed gabapentin 400 MG Oral Capsule [place] ([facility]) gabapentin 400 MG Oral Capsule gabapentin 400 mg capsu le gabapentin 400 mg capsule completed gabapentin 400 MG Oral Capsule [facility]) pregabalin 50 MG Oral Capsule pregabalin 50 mg capsule TAKE ONE CAPSULE BY MOUTH TWICE A DAY MAXIMUM DAILY DOSE 2 DO NOT START UNTIL WEANED OFF OF GABAPENTIN pregabalin 50 mg capsule TAKE ONE CAPSUL E BY MOUTH TWICE A DAY MAXIMUM DAILY DOSE 2 DO NOT START UNTIL WEANED OFF OF GABAPENTIN completed pregabalin 50 MG Oral Capsule AT [facility] ([facility]) gabapentin 400 MG Oral Capsule gabapentin 400 mg capsu le gabapentin 400 mg capsule completed gabapentin 400 MG Oral Capsule [place] ([facility]) gabapentin 800 MG Oral Tablet gabapentin 800 mg tablet gabap entin 800 mg tablet completed gabapentin 800 MG Oral Tablet [place] ([facility]) Ibuprofen 800 MG Oral Tablet ibuprofen 800 mg tablet ibuprofen 8 00 mg tablet completed ibuprofen 800 MG Oral Tablet [place] ([facility]) Ibuprofen 800 MG Oral Tablet ibuprofen 800 mg tablet ibuprofen 8 00 mg tablet completed ibuprofen 800 MG Oral Tablet [place] ([facility]) pregabalin 50 MG Oral Capsule pregabalin 50 mg capsule prega balin 50 mg capsule completed pregabalin 50 MG Oral Capsule [place] ([facility]) pregabalin 50 MG Oral Capsule pregabalin 50 mg capsule prega balin 50 mg capsule completed pregabalin 50 MG Oral Capsule [place] ([facility]) duloxetine 20 MG Delayed Release Oral Ca psule duloxetine 20 mg capsule,delayed release TAKE TWO CAPSULES BY MOUTH EVERY MORNING duloxetine 20 mg capsule,delayed release TAKE TWO CAPSULES BY MOUTH EVERY MORNING completed duloxetine 20 MG Delayed Release Oral Capsule [place] ([facility]) gabapentin 800 MG Oral Tablet gabapentin 800 mg tablet gabap entin 800 mg tablet completed gabapentin 800 MG Oral Tablet [place] ([facility]) Cyclobenzaprine hydrochloride 5 MG Oral Tablet cyclobe nzaprine 5 mg tablet cyclobenzaprine 5 mg tablet completed cyclobenzaprine hydrochloride 5 MG Oral Tablet [place] [facility]) Metformin hydrochloride 500 MG Oral Tabl et metformin 500 mg tablet Take 1 tablet twice a day by oral route. metformin 500 mg tablet Take 1 tablet tw ice a day by oral route. 1 completed m etformin hydrochloride 500 MG Oral Tablet [place] ([facility]) Ibuprofen 800 MG Oral Tablet ibuprofen 800 mg tablet ibuprofen 8 00 mg tablet completed ibuprofen 800 MG Oral Tablet [place] ([facility]) Ibuprofen 800 MG Oral Tablet ibuprofen 800 mg tablet ibuprofen 8 00 mg tablet completed ibuprofen 800 MG Oral Tablet [place] ([facility]) gabapentin 400 MG Oral Capsule gabapentin 400 mg capsu le gabapentin 400 mg capsule completed gabapentin 400 MG Oral Capsule [place] ([facility]) duloxetine 20 MG Delayed Release Oral Ca psule duloxetine 20 mg capsule,delayed release TAKE TWO CAPSULES BY MOUTH EVERY MORNING duloxetine 20 mg capsule,delayed release TAKE TWO CAPSULES BY MOUTH EVERY MORNING completed duloxetine 20 MG Delayed Release Oral Capsule [place] ([facility]) Ibuprofen 800 MG Oral Tablet ibuprofen 800 mg tablet ibuprofen 8 00 mg tablet completed ibuprofen 800 MG Oral Tablet [place] ([facility]) gabapentin 800 MG Oral Tablet gabapentin 800 mg tablet TAKE ONE TABLET BY MOUTH THREE TIMES A DAY gabapentin 800 mg tablet TAKE ONE TABLET BY MOUTH THREE TIMES A DAY completed gabapentin 800 M G Oral Tablet [place] ([facility]) gabapentin 800 MG Oral Tablet gabapentin 800 mg tablet gabap entin 800 mg tablet completed gabapentin 800 MG Oral Tablet [place] ([facility]) Ibuprofen 800 MG Oral Tablet ibuprofen 800 mg tablet ibuprofen 8 00 mg tablet completed ibuprofen 800 MG Oral Tablet [facility]) 24 HR Nicotine 0.875 MG/HR Transdermal P atch nicotine 21 mg/24 hr daily transdermal patch APPLY 1 PATCH TOPICALLY ONCE DAILY DIRECTED nicotine 21 mg/24 hr daily transdermal patch APPLY 1 PATCH TOPICALLY ONCE DAILY DIRECTED completed 24 HR nicotine 0.875 MG/HR Transdermal System [facility]) duloxetine 20 MG Delayed Release Oral Ca psule duloxetine 20 mg capsule,delayed release TAKE TWO CAPSULES BY MOUTH EVERY MORNING duloxetine 20 mg capsule,delayed release TAKE TWO CAPSULES BY MOUTH EVERY MORNING completed duloxetine 20 MG Delayed Release [facility] Cyclobenzaprine hydrochloride 5 MG Oral Tablet cyclobenzaprine 5 mg tablet TAKE TWO TABLETS BY MOUTH TWICE A DAY cyclobenzaprine 5 mg tablet TAKE TWO TAB LETS BY MOUTH TWICE A DAY completed cyclobenzaprine hydrochloride 5 MG Oral Tablet [place] ([facility]) gabapentin 800 MG Oral Tablet gabapentin 800 mg tablet gabap entin 800 mg tablet completed gabapentin 800 MG Oral Tablet [facility]) gabapentin 800 MG Oral Tablet gabapentin 800 mg tablet gabap entin 800 mg tablet completed gabapentin 800 MG Oral Tablet [facility]) Cyclobenzaprine hydrochloride 5 MG Oral Tablet cyclobenzaprine 5 mg tablet TAKE TWO TABLETS BY MOUTH TWICE A DAY cyclobenzaprine 5 mg tablet TAKE TWO TAB LETS BY MOUTH TWICE A DAY completed cyclobenzaprine hydrochloride 5 MG Oral Tablet [place] ([facility]) gabapentin 400 MG Oral Capsule gabapenti n 400 mg capsule TAKE ONE CAPSULE BY MOUTH THREE TIMES A DAY IN ADDITION TO 800MG gabapentin 400 mg capsule TAKE ONE CAPSULE BY MOUTH THREE TIMES A DAY IN ADDITION TO 800MG completed gabapentin 400 MG Oral Capsule [place] ([facility]) pregabalin 50 MG Oral Capsule pregabalin 50 mg capsule prega balin 50 mg capsule completed pregabalin 50 MG Oral Capsule [place] ([facility]) Metformin hydrochloride 500 MG Oral Tabl et metformin 500 mg tablet Take 1 tablet twice a day by oral route. metformin 500 mg tablet Take 1 tablet tw ice a day by oral route. 1 completed m etformin hydrochloride 500 MG Oral Tablet [facility] ([facility]) pregabalin 50 MG Oral Capsule pregabalin 50 mg capsule TAKE ONE CAPSULE BY MOUTH TWICE A DAY MAXIMUM DAILY DOSE 2 DO NOT START UNTIL WEANED OFF OF GABAPENTIN pregabalin 50 mg capsule TAKE ONE CAPSUL E BY MOUTH TWICE A DAY MAXIMUM DAILY DOSE 2 DO NOT START UNTIL WEANED OFF OF GABAPENTIN completed pregabalin 50 MG Oral Capsule AT [facility] ([facility]) Cyclobenzaprine hydrochloride 5 MG Oral Tablet cyclobenzaprine 5 mg tablet TAKE TWO TABLETS BY MOUTH TWICE A DAY cyclobenzaprine 5 mg tablet TAKE TWO TAB LETS BY MOUTH TWICE A DAY completed cyclobenzaprine hydrochloride 5 MG Oral Tablet [place] ([facility]) Metformin hydrochloride 500 MG Oral Tabl et metformin 500 mg tablet Take 1 tablet every day by oral route. metformin 500 mg tablet Take 1 tablet ev [place] day by oral route. 1 completed me tformin hydrochloride 500 MG Oral Tablet [facility] ([facility]) gabapentin 400 MG Oral Capsule gabapentin 400 mg capsu le gabapentin 400 mg capsule completed gabapentin 400 MG Oral Capsule [place] ([facility]) gabapentin 400 MG Oral Capsule gabapentin 400 mg capsu le gabapentin 400 mg capsule completed gabapentin 400 MG Oral Capsule [place] ([facility]) gabapentin 800 MG Oral Tablet gabapentin 800 mg tablet TAKE ONE TABLET BY MOUTH THREE TIMES A DAY gabapentin 800 mg tablet TAKE ONE TABLET BY MOUTH THREE TIMES A DAY completed gabapentin 800 M G Oral Tablet [place] ([facility]) Metformin hydrochloride 500 MG Oral Tabl et metformin 500 mg tablet Take 1 tablet every day by oral route. metformin 500 mg tablet Take 1 tablet ev [place] day by oral route. 1 completed me tformin hydrochloride 500 MG Oral Tablet [facility] ([facility]) Metformin hydrochloride 500 MG Oral Tabl et metformin 500 mg tablet Take 1 tablet every day by oral route. metformin 500 mg tablet Take 1 tablet ev [place] day by oral route. 1 completed me tformin hydrochloride 500 MG Oral Tablet [facility] ([facility]) gabapentin 800 MG Oral Tablet gabapentin 800 mg tablet gabap entin 800 mg tablet completed gabapentin 800 MG Oral Tablet [facility] ([facility]) duloxetine 20 MG Delayed Release Oral Ca psule duloxetine 20 mg capsule,delayed release TAKE TWO CAPSULES BY MOUTH EVERY MORNING duloxetine 20 mg capsule,delayed release TAKE TWO CAPSULES BY MOUTH EVERY MORNING completed duloxetine 20 MG Delayed Release Oral Capsule [facility] ([facility]) Metformin hydrochloride 500 MG Oral Tabl et metformin 500 mg tablet Take 1 tablet every day by oral route. metformin 500 mg tablet Take 1 tablet ev [place] day by oral route. 1 completed me tformin hydrochloride 500 MG Oral Tablet [facility] ([facility]) duloxetine 20 MG Delayed Release Oral Ca psule duloxetine 20 mg capsule,delayed release TAKE TWO CAPSULES BY MOUTH EVERY MORNING duloxetine 20 mg capsule,delayed release TAKE TWO CAPSULES BY MOUTH EVERY MORNING completed duloxetine 20 MG Delayed Release Oral Capsule [place] ([facility]) gabapentin 800 MG Oral Tablet gabapentin 800 mg tablet TAKE ONE TABLET BY MOUTH THREE TIMES A DAY gabapentin 800 mg tablet TAKE ONE TABLET BY MOUTH THREE TIMES A DAY completed gabapentin 800 M G Oral Tablet [facility] ([facility]) Cyclobenzaprine hydrochloride 5 MG Oral Tablet cyclobenzaprine 5 mg tablet TAKE TWO TABLETS BY MOUTH TWICE A DAY cyclobenzaprine 5 mg tablet TAKE TWO TAB LETS BY MOUTH TWICE A DAY completed cyclobenzaprine hydrochloride 5 MG Oral Tablet [facility] ([facility]) Cyclobenzaprine hydrochloride 5 MG Oral Tablet cyclobenzaprine 5 mg tablet TAKE TWO TABLETS BY MOUTH TWICE A DAY cyclobenzaprine 5 mg tablet TAKE TWO TAB LETS BY MOUTH TWICE A DAY completed cyclobenzaprine hydrochloride 5 MG Oral Tablet [facility] ([facility]) Metformin hydrochloride 500 MG Oral Tabl et metformin 500 mg tablet Take 1 tablet twice a day by oral route. metformin 500 mg tablet Take 1 tablet tw ice a day by oral route. 1 completed m etformin hydrochloride 500 MG Oral Tablet [facility] ([facility]) pregabalin 50 MG Oral Capsule pregabalin 50 mg capsule TAKE ONE CAPSULE BY MOUTH TWICE A DAY MAXIMUM DAILY DOSE 2 DO NOT START UNTIL WEANED OFF OF GABAPENTIN pregabalin 50 mg capsule TAKE ONE CAPSUL E BY MOUTH TWICE A DAY MAXIMUM DAILY DOSE 2 DO NOT START UNTIL WEANED OFF OF GABAPENTIN completed pregabalin 50 MG Oral Capsule AT [facility] ([facility]) Cyclobenzaprine hydrochloride 5 MG Oral Tablet cyclobe nzaprine 5 mg tablet cyclobenzaprine 5 mg tablet completed cyclobenzaprine hydrochloride 5 MG Oral Tablet [facility] ([facility]) Cyclobenzaprine hydrochloride 5 MG Oral Tablet cyclobenzaprine 5 mg tablet TAKE TWO TABLETS BY MOUTH TWICE A DAY cyclobenzaprine 5 mg tablet TAKE TWO TAB LETS BY MOUTH TWICE A DAY completed cyclobenzaprine hydrochloride 5 MG Oral Tablet [facility] ([facility]) pregabalin 50 MG Oral Capsule pregabalin 50 mg capsule TAKE ONE CAPSULE BY MOUTH TWICE A DAY MAXIMUM DAILY DOSE 2 DO NOT START UNTIL WEANED OFF OF GABAPENTIN pregabalin 50 mg capsule TAKE ONE CAPSUL E BY MOUTH TWICE A DAY MAXIMUM DAILY DOSE 2 DO NOT START UNTIL WEANED OFF OF GABAPENTIN completed pregabalin 50 MG Oral Capsule AT [facility] ([facility]) gabapentin 400 MG Oral Capsule gabapenti n 400 mg capsule TAKE ONE CAPSULE BY MOUTH THREE TIMES A DAY IN ADDITION TO 800MG gabapentin 400 mg capsule TAKE ONE CAPSULE BY MOUTH THREE TIMES A DAY IN ADDITION TO 800MG completed gabapentin 400 MG Oral [facility]ule [facility] pregabalin 50 MG Oral Capsule pregabalin 50 mg capsule prega balin 50 mg capsule completed pregabalin 50 MG Oral Capsule [place] ([facility]) Metformin hydrochloride 500 MG Oral Tabl et metformin 500 mg tablet Take 1 tablet twice a day by oral route. metformin 500 mg tablet Take 1 tablet tw ice a day by oral route. 1 completed m etformin hydrochloride 500 MG Oral Tablet [place] ([facility]) Insurance Providers Payer name Policy type / Coverage type Policy ID Covered republican ID Covered republican's relationship to avalos Policy [employer] Plan Information MEDICAID [id number] SP [id number] Medicaid S [id number] S [id number] [employer] BCYO P [id number] S HDY [id number] EX[employer] C [id number] Self [id number] CARLO [id number] SP [id number] [place] PPO 302/307 [id number] SP [id number] MEDICAID [id number] SP [id number] BLUE CARD C [id number] Self [id number] [employer] P [id number] S [id number] [id number] [employer] P [id number] S [id number] Medicaid S [id number] S [id number] [employer] P [id number] S HDY [id number] BS [employer] [id number] Self [id number] BS [employer] Medigap Part B [id number] Self [id number] BS [employer] [id number] Self [id number] Medicaid [place] Medigap Part B [id number] Self [id number] [place] Med[place] [id number] Self [id number] [place] Med[place] Part [place] [id number] Self [id number] [place] Med[place] Part [place] [id number] Self [id number] [facility] [id number] Self [id number] [facility] [id number] Self [id number] [facility] [id number] Self [id number] BS [place] [employer] [id number] Self [id number] BS [place] [employer] [id number] Self [id number] Managed Care [place] S [id number] S [id number] [place] Medicaid/CHP/FHP Commercial [id number] Self [id number] [employer] BCBS P [id number] S HDY [id number] [employer] BCYO P [id number] S HDY [id number] BS [place] Medigap Part B [id number] Self [id number] [employer] BCYO P [id number] S HDY [id number] [place]BS [place] PPO 302/307 [id number] SP [id number] BS [place] [employer] [id number] Self [id number] Medicaid P [id number] S [id number] Managed [facility] [place] P [id number] S [id number] Medicaid S [id number] S [id number] [place] [employer]. [id number] Self [id number] [place] [employer]. [id number] Self [id number] RPR- Needs Payer Match [id number] Self [id number] BLUE CROSS BLUE SHIELD -O/P [id number] 18 [id number] BLUE CROSS BLUE SHIELD -PHYSICIAN [id number] 18 [id number] [facility] [id number] [employer] BCYO P [id number] S HDY [id number] Self Pay P [id number] S [id number] BCBS/Blue Card Commercial [id number] Self [id number] BCBS [place] PPO 302/307 [id number] SP [id number] BCBS/Blue Card Commercial [id number] Self [id number] [employer] BCBS B [id number] S HDY [id number] Managed Care - [facility] P UNAVAILABLE S UNAVAILABLE SELF PAY UNAVAILABLE SP UNAVAILA BLE [facility] COMMUNITY PLAN [facility] [id number] SP [id number] [facility] AMERICHOICE XIX -[facility] [id number] 18 [id number] Managed Care [facility] P [id number] S [id number] [place] [id number] SP [id number] [facility] [id number] 18 [id number] [place] MEDICAID [id number] S [id number] SELF PAY ONLY [id number] SP [id number] [place] [id number] SP [id number] Managed Care [place] P [id number] S [id number] [place] [id number] 18 [id number] [place] O [id number] S [id number] MEDICAID [id number] SP [id number] [place] Medicaid/CHP/FHP Medigap Part B [id number] Self [id number] [place] [id number] [id number] Self [id number] BCBS [employer] U/W Medigap Part B [id number] Self [id number] [place] - Medicaid o Health Maintenance Organization (HMO) [id number] [id number] Self [id number] Medicaid Medigap Part B [id number] [id number] Self [id number] BCBS [employer] U/W Commercial [id number] Self [id number] [employer] BS Health Maintenance Organization (HMO) [id number] [id number] Self [id number] [employer] Health Maintenance Organization (O) [id number] [id number] Self [id number] BCBS [place] PPO 302/307 [id number] SP [id number] BCBS [employer] U/W Medigap Part B [id number] Self [id number] [place] - Medicaid Hmo Health Maintenance Organization ([facility]) [facility] [id number] Self [id number] Medicaid Medigap Part B [id number] Self [id number] BCBS [employer] U/W Commercial [id number] Self [id number] BCBS [employer] U/W Medigap Part B [id number] Self [id number] [place] - Medicaid Hmo Health Maintenance [facility] ([facility]) [facility] [id number] Self [id number] Medicaid Medigap Part B [id number] Self [id number] BCBS [employer] U/W Commercial [id number] Self [id number] [place] Medicaid/CHP/FHP Medigap Part B [id number] Self [id number] [place] Medicaid/CHP/FHP Medigap Part B [id number] Self [id number] [place] Medicaid/CHP/FHP Medigap Part B [id number] Self [id number] BCBS [place] PPO 302/307 [id number] SP [id number] [place] Medicaid/CHP/FHP Medigap Part B [id number] Self [id number] BCBS [employer] U/W Medigap Part B [id number] Self [id number] [place] - Medicaid o Health Maintenance Organization (HMO) [id number] Self [id number] BCBS [employer] U/W Commercial [id number] Self [id number] [employer] BCBS B [id number] S HDY [id number] BCBS [employer] U/W Commercial [id number] Self [id number] BCBS [employer] U/W Commercial [id number] Self [id number] BCBS [place] PPO 302/307 [id number] SP [id number] [employer] BCBS Health Maintenance Organization (HMO) [id number] Self [id number] Problems, Conditions, and Diagnoses Code Display Name Description Problem Type Effective Dates Data Source(s) M79.18 MYALGIA, OTHER SITE MYALGIA, OTHER SITE Diagnosis 0 06/06/2020 08:04:00 AM [facility] M47.816 Spondylosis without myelopathy or radicu lopathy, 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 elvis M51.36 Other intervertebral disc degeneration, lumbar region OTHER INTERVERTEBRAL DISC DEGENERATION, Diagnosis 06/06/2020 08:04:00 AM [facility] Z51.89 Encounter for other specified aftercare ENCOUNTER FOR OTHER SPECIFIED AFTERCARE Diagnosis 06/06/2020 08:04:00 AM [facility] [id number] Screening mammography of bilateral breas ts Screening Mammography of Bilateral Breasts Problem 01/07/2021 12:00:00 AM EDT [facility]) [id number] Body mass index 40+ - severely obese Bod y Mass Index 40+ - Severely Obese Problem 01/07/2021 12:00:00 AM EDT [facility]) 596515929 Chronic low back pain Chronic Low Back Pain Problem 01/07/2021 12:00:00 AM [place]T [place] [facility]) 400336657 Decreased hearing Decreased Hearing Problem 01/07 12:00:00 AM EDT [place]) [id number] Screening mammography of bilateral breas ts Screening Mammography of Bilateral Breasts Problem 01/07/2021 12:00:00 AM EDT [facility]) 601915525 Body mass index 40+ - severely obese Bod y Mass Index 40+ - Severely Obese Problem 01/07/2021 12:00:00 AM EDT [facility]) 786500540 Chronic low back pain Chronic Low Back Pain Problem 01/07/2021 12:00:00 AM EDT [facility] ([facility]) 331832048 Decreased hearing Decreased Hearing Problem 01/07 12:00:00 AM EDT [facility] ([facility]) [id number] Screening mammography of bilateral breas ts Screening Mammography of Bilateral Breasts Problem 01/07/2021 [facility] 1658[facility]43 Body mass index 40+ - severely obese Bod y Mass Index 40+ - Severely Obese Problem 01/07/2021 12:00:00 AM EDT [facility] ([facility]) 942429929 Chronic low back pain Chronic Low Back Pain Problem 01/07/2021 12:00:00 AM EDT [facility] ([facility]) 527721455 Decreased hearing Decreased Hearing Problem 01/07 12:00:00 AM EDT [facility] ([facility]) [id number] Screening mammography of bilateral breas ts Screening Mammography of Bilateral Breasts Problem 01/07/2021 12:00:00 AM EDT [facility] ([facility]) 524064940 Body mass index 40+ - severely obese Bod y Mass Index 40+ - Severely Obese Problem 01/07/2021 12:00:00 AM EDT [facility] ([facility]) 847496382 Chronic low back pain Chronic Low Back Pain Problem 01/07/2021 12:00:00 AM EDT [facility] ([facility]) 528583207 Decreased hearing Decreased Hearing Problem 01/07 12:00:00 AM EDT [facility] ([facility]) 086727516 Nicotine dependence with current use Tylor otine Dependence with Current Use Problem 12/03/2020 12:00:00 AM EDT [place]) 244490652 Patient asked to attend Patient Asked to Attend Proble 12/03/2020 12:00:00 AM EDT [facility] ([facility]) 916174653 Prediabetes Prediabetes Problem 12/03/2020 12:00:00 AM EDT [facility] ([facility]) 58705566 Hyperlipidemia Hyperlipidemia Problem 12/03/2020 12:00: 00 AM EDT [facility] ([facility]) 703660786 Nicotine dependence with current use Tylor otine Dependence with Current Use Problem 12/03/2020 12:00:00 AM EDT [place]) 451258114 Patient asked to attend Patient Asked to Attend Proble 12/03/2020 12:00:00 AM EDT [facility] ([facility]) 308494586 Prediabetes Prediabetes Problem 12/03/2020 12:00:00 AM EDT [facility] ([facility]) 27099431 Hyperlipidemia Hyperlipidemia Problem 12/03/2020 12:00: 00 AM EDT [place]) 250777998 Nicotine dependence with current use Tylor otine Dependence with Current Use Problem 12/03/2020 12:00:00 AM EDT [place] ([facility]) 564609539 Patient asked to attend Patient Asked to Attend [facility] 12/03/2020 12:00:00 AM EDT [facility] ([facility]) 579606935 Prediabetes Prediabetes Problem 12/03/2020 12:00:00 AM EDT [place] ([facility]) 75441680 Hyperlipidemia Hyperlipidemia Problem 12/03/2020 12:00: 00 AM EDT [facility] ([facility]) 114919945 Nicotine dependence with current use Tylor otine Dependence with Current Use Problem 12/03/2020 12:00:00 AM EDT [place]) 687206379 Patient asked to attend Patient Asked to Attend Proble 12/03/2020 12:00:00 AM EDT [facility] ([facility]) 239585573 Prediabetes Prediabetes Problem 12/03/2020 12:00:00 AM EDT [facility] ([facility]) 53965841 Hyperlipidemia Hyperlipidemia Problem 12/03/2020 12:00: 00 AM EDT [facility] ([facility]) 504723918 Nicotine dependence with current use Tylor otine Dependence with Current Use Problem 12/03/2020 12:00:00 AM EDT [facility] ([facility]) 254694537 Patient asked to attend Patient Asked to Attend Proble m 12/03/2020 12:00:00 AM EDT [facility] ([facility]) 285615074 Prediabetes Prediabetes Problem 12/03/2020 12:00:00 AM EDT [facility] ([facility]) 87400164 Hyperlipidemia Hyperlipidemia Problem 12/03/2020 12:00: 00 AM EDT [place] [facility]) Surgeries/Procedures Procedure Description Date Indications Data Source(s) ECG ROUTINE ECG W/LEAST 12 LDS W/I&R 02/06/2021 12:00: 00 AM EDT [facility] ([facility]) OFFICE OUTPATIENT VISIT 25 MINUTES 02/06/2021 12:00:00 AM EDT [facility] ([facility]) TOBACCO USE CESSATION INTERMEDIATE 3-10 MINUTES 2020 12:00:00 AM EDT [facility] ([facility]) OFFICE OUTPATIENT VISIT 25 MINUTES 02/05/2021 12:00:00 AM EDT [facility] ([facility]) OFFICE OUTPATIENT VISIT 25 MINUTES 01/29/2021 12:00:00 AM EDT [facility] ([facility] ) X-Ray Hip Unilateral With Pelvis 2-3 Views 01/29/2021 12:00:00 AM EDT [facility] ([facility] ) THERAPEUTIC PX 1/> AREAS EACH 15 MIN EXERCISES 12:00:00 AM EDT [facility] ([facility]) THERAPEUTIC PX 1/> AREAS EACH 15 MIN EXERCISES 12:00:00 AM EDT [facility] ([facility] ) MANUAL THERAPY TQS 1/> REGIONS EACH 15 MINUTES 12:00:00 AM EDT [facility] ([facility]) THERAPEUTIC PX 1/> AREAS EACH 15 MIN EXERCISES 12:00:00 AM EDT [facility] ([facility]) MANUAL THERAPY TQS 1/> REGIONS EACH 15 MINUTES 12:00:00 AM EDT [facility] ([facility]) THERAPEUTIC PX 1/> AREAS EACH 15 MIN EXERCISES 12:00:00 AM EDT [facility] ([facility] ) MANUAL THERAPY TQS 1/> REGIONS EACH 15 MINUTES 09/08/2 021 12:00:00 AM EDT [facility] ([facility]) THERAPEUTIC PX 1/> AREAS EACH 15 MIN EXERCISES 12:00:00 AM EDT [facility] ([facility]) MANUAL THERAPY TQS 1/> REGIONS EACH 15 MINUTES 021 12:00:00 AM EDT [facility] ([facility] ) MAMMO, screening, digital, bilateral 01/03/2021 12:00: 00 AM EDT [facility] ([facility]) MAMMO, screening, digital, bilateral 01/03/2021 12:00: 00 AM EDT [facility] ([facility]) THERAPEUTIC PX 1/> AREAS EACH 15 MIN EXERCISES 12:00:00 AM EDT [facility] ([facility] ) MANUAL THERAPY TQS 1/> REGIONS EACH 15 MINUTES 021 12:00:00 AM EDT [facility] ([facility] ) THERAPEUTIC PX 1/> AREAS EACH 15 MIN EXERCISES 021 12:00:00 AM EDT [facility] ([facility] ) MANUAL THERAPY TQS 1/> REGIONS EACH 15 MINUTES 021 12:00:00 AM EDT [facility] ([facility] ) THERAPEUTIC PX 1/> AREAS EACH 15 MIN EXERCISES 12:00:00 AM EDT [facility] ([facility] ) MANUAL THERAPY TQS 1/> REGIONS EACH 15 MINUTES 021 12:00:00 AM EDT [facility] ([facility]) THERAPEUTIC PX 1/> AREAS EACH 15 MIN EXERCISES 021 12:00:00 AM EDT [facility] ([facility]) MANUAL THERAPY TQS 1/> REGIONS EACH 15 MINUTES 021 12:00:00 AM EDT [facility] ([facility]) THERAPEUTIC PX 1/> AREAS EACH 15 MIN EXERCISES 021 12:00:00 AM EDT [facility] ([facility]) MANUAL THERAPY TQS 1/> REGIONS EACH 15 MINUTES 021 12:00:00 AM EDT [facility] ([facility] ) Physical Therapy Eval - Low Complexity 12/10/2020 12:0 0:00 AM EDT [facility] ([facility]) OFFICE OUTPATIENT VISIT 15 MINUTES 11/28/2020 12:00:00 AM EDT [facility] ([facility]) OFFICE OUTPATIENT VISIT 25 MINUTES 11/28/2020 12:00:00 AM EDT [facility] ([facility]) ARTHROCENTESIS ASPIR&/INJECTION MAJOR JT/BURSA 021 12:00:00 AM EDT [facility] ([facility]) OFFICE OUTPATIENT VISIT 25 MINUTES 10/16/2020 12:00:00 AM EDT [facility] ([facility]) ECG ROUTINE ECG W/LEAST 12 LDS W/I&R 10/08/2020 12:00: 00 AM EDT [facility] ([facility]) OFFICE OUTPATIENT VISIT 25 MINUTES 10/08/2020 12:00:00 AM EDT [facility] ([facility]) TOBACCO USE CESSATION INTERMEDIATE 3-10 MINUTES 2020 12:00:00 AM EDT [facility] ([facility]) OFFICE OUTPATIENT VISIT 25 MINUTES 09/20/2020 12:00:00 AM EDT [facility] ([facility]) OFFICE OUTPATIENT VISIT 10 MINUTES 09/17/2020 12:00:00 AM EDT [facility] ([facility]) OFFICE OUTPATIENT VISIT 25 MINUTES 07/16/2020 12:00:00 AM EDT [facility] ([facility]) OFFICE OUTPATIENT VISIT 25 MINUTES 05/15/2020 12:00:00 AM EST [facility] ([facility]) NJX ANES&/STRD W/IMG TFRML EDRL LMBR/SAC 1 LVL 020 12:00:00 AM EST [facility] ([facility]) Epidurography Radiological Supervision & Interpretation 03/26/2020 12:00:00 AM EST [facility] ([facility]) Moderate Sedation Services; Same Phys Intl 15 Mins; PT >= 5 Years 03/26/2020 12:00:00 AM EST [facility] ([facility]) Results ID Date Data Source [id number] 01/26/2021 12:00:00 AM EDT [facility] ([facility]) Name Value Range Interpretation Code Description Data Mora rce(s) Supporting Document(s) Bacteria identified in Urine by Culture see note Abnormal (applies to non- numeric results) Culture, Urine, Routine [facility] ([facility]) ID Date Data Source [id number] 01/26/2021 12:00:00 AM EDT [place] ([facility]) Name Value Range Interpretation Code Description Data Mora rce(s) Supporting Document(s) Thyrotropin [Units/volume] in Serum or Plasma tnp TSH W/reflex to FT4 [facility] ([facility]) ID Date Data Source [id number] 01/26/2021 12:00:00 AM EDT [place] ([facility]) Name Value Range Interpretation Code Description Data Mora rce(s) Supporting Document(s) Cholesterol [Mass/volume] in Serum or Plasma tnp Cholesterol, Total [facility] ([facility]) Cholesterol in LDL [Mass/volume] in Serum or Plasma by calculation tnp LDL-cholesterol [facility] ([facility]) Cholesterol in HDL [Mass/volume] in Serum or Plasma tnp HDL Cholesterol [facility] ([facility]) Cholesterol.total/Cholesterol in HDL [Mass Ratio] in Serum or Plasm a tnp Chol/hdlc Ratio [facility] ([facility]) Triglyceride [Mass/volume] in Serum or Plasma tnp Triglycerides [facility] ([facility]) Cholesterol non HDL [Mass/volume] in Serum or Plasma tnp Non HDL Cholesterol [facility] ([facility]) ID Date Data Source [id number] 01/25/2021 12:00:00 AM EDT [place] ([facility]) Name Value Range Interpretation Code Description Data Mora rce(s) Supporting Document(s) Bacteria identified in Urine by Culture [facility] ID Date Data Source [id number] 01/25/2021 12:00:00 AM EDT [facility]) Name Value Range Interpretation Code Description Data Mora rce(s) Supporting Document(s) Color of Urine yellow yellow Color [facility] ([facility]) Appearance of Urine cloudy clear Abnormal (applies to non-numeric results) Appearance [facility] ([facility]) Glucose [Presence] in Urine by Test strip negative negative Glucose [facility] ([facility]) Specific gravity of Urine by Test strip 1.001-1.035 Specific Parker [facility] ([facility]) Bilirubin.total [Presence] in Urine by Test strip negative negative Bilirubin [facility] ([facility]) pH of Urine by Test strip 5.0-8.0 Ph [facility] ([facility]) Ketones [Presence] in Urine by Test strip negative negative Ketones [facility] ([facility]) Leukocyte esterase [Presence] in Urine by Test strip 3+ negative Abnormal (applies to non-numeric results) Leukocyte Esterase [facility] ([facility]) Hemoglobin [Presence] in Urine by Test strip 2+ neg ative Abnormal (applies to non-numeric results) Occult Blood [facility] ([facility]) Nitrite [Presence] in Urine by Test strip negative negative Nitrite [facility] ([facility]) Protein [Presence] in Urine by Test strip 1+ negati ve Abnormal (applies to non- numeric results) Protein [facility] ([facility]) Leukocytes [#/area] in Urine sediment by Microscopy high pow er field > or = 60 < or = 5 Abnormal (applies to non-numeric results) Wbc [facility] ([facility]) Erythrocytes [#/area] in Urine sediment by Microscopy high p ower field 3-10 < or = 2 Abnormal (applies to non-numeric results) Rbc [facility] ([facility]) Epithelial cells.squamous [#/area] in Ur ine sediment by Microscopy high power field 0-5 < or = 5 Squamous Epithelial Cells AT AIME [facility]) Amorphous sediment [Presence] in Urine sediment by Light anne roscopy few none or few Amorphous Sediment [facility] ([facility]) Bacteria [#/area] in Urine sediment by Microscopy high power field few none seen Abnormal (applies to non-numeric results) Bacteria [facility] ([facility]) Hyaline casts [#/area] in Urine sediment by Microscopy low power field none seen none seen Hyaline Cast [facility] ([facility]) ID Date Data Source [id number] 01/23/2021 11:53:00 AM EDT [facility] ([facility]) Name Value Range Interpretation Code Description Data Mora rce(s) Supporting Document(s) bilirubin neg Bilirubin [facility] ([facility]) blood 3+ Abnormal (applies to non-numeric res ults) Blood [facility] ([facility]) glucose neg Glucose [facility] ([facility]) ketone neg Ketone [facility] ([facility]) nitrite neg Nitrite [facility] ([facility]) leukocytes 3+ Abnormal (applies to non-numeric res ults) Leukocytes [facility] ([facility]) pH Ph [facility] ([facility]) protein 1+ Abnormal (applies to non-numeric res ults) Protein [facility] ([facility]) specific gravity Specific [place] [facility]) urobilinogen Urobilinogen [facility]) ID Date Data Source [id number] 01/23/2021 11:53:00 AM EDT [facility] ([facility]) Name Value Range Interpretation Code Description Data Mora rce(s) Supporting Document(s) bilirubin neg Bilirubin [facility] ([facility]) glucose neg Glucose [facility] ([facility]) blood 3+ Abnormal (applies to non-numeric res ults) Blood [facility] ([facility]) ketone neg Ketone [facility] ([facility]) leukocytes 3+ Abnormal (applies to non-numeric res ults) Leukocytes [facility] ([facility]) nitrite neg Nitrite [facility] ([facility]) pH Ph [facility] ([facility]) protein 1+ Abnormal (applies to non-numeric res ults) Protein RADHA ([facility]) specific gravity Specific [place] AT [facility]) [facility] ID Date Data Source [id number] 11/19/2020 12:00:00 AM EDT RADHA ([facility]) Name Value Range Interpretation Code Description Data Mora rce(s) Supporting Document(s) SARS-CoV-2 (COVID-19) RNA [Presence] in Respiratory specimen by ISSA with probe detection negative negative Sars-cov-2 RADHA ([facility]) ID Date Data Source [id number] 11/19/2020 12:00:00 AM EDT RADHA ([facility]) Name Value Range Interpretation Code Description Data Mora rce(s) Supporting Document(s) ID Date Data Source [id number] 11/19/2020 12:00:00 AM EDT [facility] Name Value Range Interpretation Code Description Data Mora rce(s) Supporting Document(s) SARS-CoV-2 NEGATIVE [facility] This lab was ordered by [employer] [facility]-COVID19 and reported by HAUL. ID Date Data Source [id number] 11/19/2020 12:00:00 AM EDT RADHA ([facility]) Name Value Range Interpretation Code Description Data Mora rce(s) Supporting Document(s) SARS-CoV-2 (COVID-19) RNA [Presence] in Respiratory specimen by ISSA with probe detection negative negative [facility] ID Date Data Source [id number] 11/19/2020 12:00:00 AM EDT RADHA ([facility]) Name Value Range Interpretation Code Description Data Mora rce(s) Supporting Document(s) ID Date Data Source [id number] 10/26/2020 12:00:00 AM EDT RADHA ([facility]) Name Value Range Interpretation Code Description Data Mora rce(s) Supporting Document(s) SARS-CoV-2 (COVID-19) RNA [Presence] in Respiratory specimen by ISSA with probe detection negative negative Sars-cov-2 RADHA ([facility]) ID Date Data Source [id number] 10/26/2020 12:00:00 AM EDT [place] ([facility]) Name Value Range Interpretation Code Description Data Mora rce(s) Supporting Document(s) ID Date Data Source [id number] 10/26/2020 12:00:00 AM EDT RADHA ([facility]) Name Value Range Interpretation Code Description Data Mora rce(s) Supporting Document(s) SARS-CoV-2 (COVID-19) RNA [Presence] in Respiratory specimen by ISSA with probe detection negative negative Sars-cov-2 [place] ([facility]) ID Date Data Source [id number] 10/26/2020 12:00:00 AM EDT [place] ([facility]) Name Value Range Interpretation Code Description Data Mora rce(s) Supporting Document(s) ID Date Data Source [id number] 10/26/2020 12:00:00 AM EDT RADHA ([facility]) Name Value Range Interpretation Code Description Data Mora rce(s) Supporting Document(s) SARS-CoV-2 (COVID-19) RNA [Presence] in Respiratory specimen by ISSA with probe detection negative negative Sars-cov-2 [place] ([facility]) ID Date Data Source [id number] 10/26/2020 12:00:00 AM EDT RADHA ([facility]) Name Value Range Interpretation Code Description Data Mora rce(s) Supporting Document(s) ID Date Data Source [id number] 10/26/2020 12:00:00 AM EDT [facility] Name Value Range Interpretation Code Description Data Mora rce(s) Supporting Document(s) SARS-CoV-2 NEGATIVE [facility] This lab was ordered by [employer] [facility] and reported by HAUL. ID Date Data Source [id number] 10/26/2020 12:00:00 AM EDT [place] ([facility]) Name Value Range Interpretation Code Description Data Mora rce(s) Supporting Document(s) SARS-CoV-2 (COVID-19) RNA [Presence] in Respiratory specimen by ISSA with probe detection negative negative Sars-cov-2 [place] ([facility]) ID Date Data Source [id number] 10/26/2020 12:00:00 AM EDT [place] ([facility]) Name Value Range Interpretation Code Description Data Mora rce(s) Supporting Document(s) ID Date Data Source [id number] 10/15/2020 12:00:00 AM EDT [place] ([facility]) Name Value Range Interpretation Code Description Data Mora rce(s) Supporting Document(s) ID Date Data Source [id number] 10/15/2020 12:00:00 AM EDT [place] ([facility]) Name Value Range Interpretation Code Description Data Mora rce(s) Supporting Document(s) SARS-CoV-2 (COVID-19) RNA [Presence] in Respiratory specimen by ISSA with probe detection negative negative Sars-cov-2 RADHA ([facility]) ID Date Data Source [id number] 10/15/2020 12:00:00 AM EDT [place] ([facility]) Name Value Range Interpretation Code Description Data Mora rce(s) Supporting Document(s) ID Date Data Source [id number] 10/15/2020 12:00:00 AM EDT [place] ([facility]) Name Value Range Interpretation Code Description Data Mora rce(s) Supporting Document(s) SARS-CoV-2 (COVID-19) RNA [Presence] in Respiratory specimen by ISSA with probe detection negative negative Sars-cov-2 [facility] ([facility]) ID Date Data Source [id number] 10/15/2020 12:00:00 AM EDT [place] ([facility]) Name Value Range Interpretation Code Description Data Mora rce(s) Supporting Document(s) ID Date Data Source [id number] 10/15/2020 12:00:00 AM EDT RADHA ([facility]) Name Value Range Interpretation Code Description Data Mora rce(s) Supporting Document(s) SARS-CoV-2 (COVID-19) RNA [Presence] in Respiratory specimen by ISSA with probe detection negative negative Sars-cov-2 [place] ([facility]) ID Date Data Source [id number] 10/15/2020 12:00:00 AM EDT RADHA ([facility]) Name Value Range Interpretation Code Description Data Mora rce(s) Supporting Document(s) ID Date Data Source [id number] 10/15/2020 12:00:00 AM EDT RADHA ([facility]) Name Value Range Interpretation Code Description Data Mora rce(s) Supporting Document(s) SARS-CoV-2 (COVID-19) RNA [Presence] in Respiratory specimen by ISSA with probe detection negative negative Sars-cov-2 RADHA ([facility]) ID Date Data Source [id number] 10/15/2020 12:00:00 AM EDT RADHA ([facility]) Name Value Range Interpretation Code Description Data Mora rce(s) Supporting Document(s) ID Date Data Source [id number] 10/15/2020 12:00:00 AM EDT [facility] Name Value Range Interpretation Code Description Data Mora rce(s) Supporting Document(s) SARS-CoV-2 NEGATIVE [facility] This lab was ordered by [employer] [facility] and reported by HAUL. ID Date Data Source [id number] 10/15/2020 12:00:00 AM EDT RAD[facility] ([facility]) Name Value Range Interpretation Code Description Data Mora rce(s) Supporting Document(s) SARS-CoV-2 (COVID-19) RNA [Presence] in Respiratory specimen by ISSA with probe detection negative negative Sars-cov-2 RAD[facility] ([facility]) ID Date Data Source [id number] 10/15/2020 12:00:00 AM EDT RAD[facility] ([facility]) Name Value Range Interpretation Code Description Data Mora rce(s) Supporting Document(s) ID Date Data Source [id number] 10/15/2020 12:00:00 AM EDT RAD[facility] ([facility]) Name Value Range Interpretation Code Description Data Mora rce(s) Supporting Document(s) SARS-CoV-2 (COVID-19) RNA [Presence] in Respiratory specimen by ISSA with probe detection negative negative Sars-cov-2 RADHA ([facility]) ID Date Data Source [id number] 10/02/2020 02:38:00 PM EDT [facility] ([facility]) Name Value Range Interpretation Code Description Data Mora rce(s) Supporting Document(s) Alanine aminotransferase [Enzymatic activity/volume] in Serum or Pl asma 20 [facility] ([facility]) Albumin [Mass/volume] in Serum or Plasma 3.5 [facility] ([facility]) Calcium [Mass/volume] in Serum or Plasma 8.9 [facility] ([facility]) Carbon dioxide, total [Moles/volume] in Serum or Plasma 26 [facility] ([facility]) Chloride [Moles/volume] in Serum or Plasma 107 [facility] ([facility]) Alkaline phosphatase [Enzymatic activity/volume] in Serum or Plasma 1 31 [facility] ([facility]) Sodium 140 [facility] Potassium [Moles/volume] in Serum or Plasma 4.3 [facility] ([facility]) Protein [Mass/volume] in Serum or Plasma 7.2 [facility] ([facility]) Aspartate aminotransferase [Enzymatic activity/volume] in Serum or Plasma 10 [facility] ([facility]) Glucose 119 70-100 [facility] Urea nitrogen [Mass/volume] in Serum or Plasma 8 [facility] ([facility]) Creatinine For GFR 0.67 [facility] ([facility]) ID Date Data Source [id number] 10/02/2020 02:38:00 PM EDT [facility] ([facility]) Name Value Range Interpretation Code Description Data Mora rce(s) Supporting Document(s) Hemoglobin A1c/Hemoglobin.total in Blood 6.1 [facility] ([facility]) ID Date Data Source [id number] 10/02/2020 02:38:00 PM EDT [facility] ([facility]) Name Value Range Interpretation Code Description Data Mora rce(s) Supporting Document(s) Triglycerides 309 [facility] ([facility]) Cholesterol 144 [facility] ([facility]) HDL 35 [facility] Cholesterol in LDL [Mass/volume] in Serum or Plasma by calculation 47 [facility] ([facility]) Chol/HDL Ratio 4.114 [facility] ([facility]) ID Date Data Source [id number] 10/02/2020 10:49:00 AM EDT RADHA ([facility]) Name Value Range Interpretation Code Description Data Mora rce(s) Supporting Document(s) white blood count 11.3 10 4.0-10.0 Above high normal White Blood Count RADHA ([facility]) hemoglobin 15.1 g/dL 12.0-15.5 Hemoglobin RAD[facility] ([facility]) red blood count 4.73 10 4.00-5.40 Red Blood Count [facility] ([facility]) hematocrit 46.1 % 36.0-47.0 Hematocrit RADHA ([facility]) mean corpuscular volume 97.5 fL 80.0-96.0 Above high normal Mean Corpuscular Volume RADHA ([facility]) mean corpuscular hemoglobin 31.9 pg 27.0-33.0 Mean Cor puscular Hemoglobin RAD[facility] ([facility]) mean corpuscular HGB conc 32.8 g/dL 32.0-36.5 Mean Corpu scular HGB Conc RADHA ([facility]) red cell distribution width 13.5 % 11.5-14.5 Red Cell Distribution Width RADHA ([facility]) platelet count, automated 459 10 150-450 Above high norm al Platelet Count, Automated RADHA ([facility]) neutrophils % 62.6 % 36.0-66.0 Neutrophils % [facility] ( [facility]) lymph % 26.7 % 24.0-44.0 Lymph % [place] ([facility]) mono % 7.7 % 2.0-8.0 [place] % [place] ([facility]) eos % 1.9 % 0.0-3.0 Eos % RADHA ([facility]) baso % 0.7 % 0.0-1.0 Baso % [place] ([facility]) immature granulocyte % 0.4 % 0-3.0 Immature Gran ulocyte % RADHA ([facility]) nucleated red blood cell % 0.0 % 0-0 Nucleated Red Blood Cell % RADHA ([facility]) neutrophils # 7.1 10 1.5-8.5 Neutrophils # RAD[facility] ( [facility]) lymph # 3.0 10 1.5-5.0 Lymph # RAD[facility] ([facility]) mono # 0.9 10 0.0-0.[address] [facility] # RAD[facility] ([facility]) eos # 0.2 10 0.0-0.5 Eos # RAD[facility] ([facility]) baso # 0.1 10 0.0-0.2 Baso # RADHA ([facility]) ID Date Data Source [id number] 10/02/2020 10:49:00 AM EDT RADHA ([facility]) Name Value Range Interpretation Code Description Data Mora rce(s) Supporting Document(s) triglycerides level 309 mg/dL <150 Above high normal Triglycer ides Level RADHA ([facility]) cholesterol level 144 mg/dL <200 Cholesterol Level RAD[facility] ([facility]) Cholesterol in LDL [Mass/volume] in Serum or Plasma 47 mg/dL <1 00 LDL Cholesterol RAD[facility] ([facility]) non-HDL-C 109 mg/dL Non-hdl-c RAD[facility] ([facility]) HDL cholesterol 35 mg/dL >40 Below low normal HDL Cholestero l RADHA ([facility]) cholesterol risk ratio <5 Cholesterol R isk Ratio RADHA ([facility]) ID Date Data Source [id number] 10/02/2020 10:49:00 AM EDT [facility]) Name Value Range Interpretation Code Description Data Mora rce(s) Supporting Document(s) blood urea nitrogen 8 mg/dL 7-18 Blood Urea Nitro gen RADHA ([facility]) glucose, fasting 119 mg/dL 70-100 Above high normal Glucose, Fas ting RADHA ([facility]) glomerular filtration rate > 60.0 >58 Glomer[place] r Filtration Rate RADHA ([facility]) creatinine for GFR 0.67 mg/dL 0.55-1.30 Creatinine for GF R RADHA ([facility]) potassium serum 4.3 mEq/L 3.5-5.1 Potassium Serum ATHE NA ([facility]) chloride level 107 mEq/L 98-107 Chloride Level RAD[facility] ([facility]) sodium level 140 mEq/L 136-145 Sodium Level RAD[facility] ([facility]) anion gap 7 mEq/L 8-16 Below low normal Anion Gap RAD[facility] ( [facility]) carbon dioxide level 26 mEq/L 21-32 Carbon Dioxide Level RAD[facility] ([facility]) AST/SGOT 10 U/L 7-37 AST/SGOT [facility] ([facility]) ALT/SGPT 20 U/L 12-78 ALT/SGPT [facility] ([facility]) calcium level 8.9 mg/dL 8.5-10.1 Calcium Level RAD[facility] ( [facility]) bilirubin,total 0.3 mg/dL 0.2-1.0 Bilirubin,total [facility] ([facility]) alkaline phosphatase 131 U/L 45-117 Above high normal Alkaline Phosphatase RAD[facility] ([facility]) albumin 3.5 gm/dL 3.2-5.2 Albumin RAD[facility] ([facility]) total protein 7.2 gm/dL 6.4-8.2 Total Protein [facility] ( [facility]) albumin/globulin ratio 1.2-2.2 Below low normal Albumin /globulin Ratio RAD[facility] ([facility]) ID Date Data Source [id number] 10/02/2020 10:49:00 AM EDT RAD[facility] ([facility]) Name Value Range Interpretation Code Description Data Mora rce(s) Supporting Document(s) estimated average glucose 128 mg/dL 60-110 Above high norm al Estimated Average Glucose [facility] ([facility]) Hemoglobin A1c/Hemoglobin.total in Blood 6.1 % Hemoglobin a1C [facility] ([facility]) ID Date Data Source [id number] 10/02/2020 10:49:00 AM EDT [facility] ([facility]) Name Value Range Interpretation Code Description Data Mora rce(s) Supporting Document(s) white blood count 11.3 10 4.0-10.0 Above high normal White Blood Count [facility] ([facility]) red blood count 4.73 10 4.00-5.40 Red Blood Count ATHE NA ([facility]) hematocrit 46.1 % 36.0-47.0 Hematocrit RAD[facility] ([facility]) hemoglobin 15.1 g/dL 12.0-15.5 Hemoglobin RAD[facility] ([facility]) mean corpuscular volume 97.5 fL 80.0-96.0 Above high normal Mean Corpuscular Volume RADHA ([facility]) mean corpuscular hemoglobin 31.9 pg 27.0-33.0 Mean Cor puscular Hemoglobin RAD[facility] ([facility]) mean corpuscular HGB conc 32.8 g/dL 32.0-36.5 Mean Corpu scular HGB Conc RAD[facility] ([facility]) red cell distribution width 13.5 % 11.5-14.5 Red Cell Distribution Width RAD[facility] ([facility]) neutrophils % 62.6 % 36.0-66.0 Neutrophils % RAD[facility] ( [facility]) platelet count, automated 459 10 150-450 Above high norm al Platelet Count, Automated RAD[facility] ([facility]) mono % 7.7 % 2.0-8.0 [facility] % [place] ([facility]) lymph % 26.7 % 24.0-44.0 Lymph % [place] ([facility]) eos % 1.9 % 0.0-3.0 Eos % [place] ([facility]) immature granulocyte % 0.4 % 0-3.0 Immature Gran ulocyte % RAD[facility] ([facility]) baso % 0.7 % 0.0-1.0 Baso % [facility] ([facility]) neutrophils # 7.1 10 1.5-8.5 Neutrophils # [place] ( [facility]) nucleated red blood cell % 0.0 % 0-0 Nucleated Red Blood Cell % RAD[facility] ([facility]) lymph # 3.0 10 1.5-5.0 Lymph # [facility] ([facility]) mono # 0.9 10 0.0-0.[address] [facility] # [facility] ([facility]) baso # 0.1 10 0.0-0.2 Baso # [facility] ([facility]) eos # 0.2 10 0.0-0.5 Eos # RAD[facility] ([facility]) ID Date Data Source [id number] 10/02/2020 10:49:00 AM EDT [place] ([facility]) Name Value Range Interpretation Code Description Data Mora rce(s) Supporting Document(s) cholesterol level 144 mg/dL <200 Cholesterol Level [place] ([facility]) triglycerides level 309 mg/dL <150 Above high normal Triglycer ides Level [facility] ([facility]) HDL cholesterol 35 mg/dL >40 Below low normal HDL Cholestero l RAD[facility] ([facility]) Cholesterol in LDL [Mass/volume] in Serum or Plasma 47 mg/dL <1 00 LDL Cholesterol [facility] ([facility]) non-HDL-C 109 mg/dL Non-hdl-c [facility] ([facility]) cholesterol risk ratio <5 Cholesterol R isk Ratio RAD[facility] ([facility]) ID Date Data Source [id number] 10/02/2020 10:49:00 AM EDT [place] ([facility]) Name Value Range Interpretation Code Description Data Mora rce(s) Supporting Document(s) glucose, fasting 119 mg/dL 70-100 Above high normal Glucose, Fas ting RADHA ([facility]) creatinine for GFR 0.67 mg/dL 0.55-1.30 Creatinine for GF R RAD[facility] ([facility]) blood urea nitrogen 8 mg/dL 7-18 Blood Urea Nitro gen [facility] ([facility]) sodium level 140 mEq/L 136-145 Sodium Level [facility] ([facility]) potassium serum 4.3 mEq/L 3.5-5.1 Potassium Serum ATHE NA ([facility]) glomerular filtration rate > 60.0 >58 Glomerula r Filtration Rate RAD[facility] ([facility]) carbon dioxide level 26 mEq/L 21-32 Carbon Dioxide Level [facility] ([facility]) chloride level 107 mEq/L 98-107 Chloride Level [facility] ([facility]) anion gap 7 mEq/L 8-16 Below low normal Anion Gap [facility] ( [facility]) calcium level 8.9 mg/dL 8.5-10.1 Calcium Level [facility] ( [facility]) AST/SGOT 10 U/L 7-37 AST/SGOT [facility] ([facility]) ALT/SGPT 20 U/L 12-78 ALT/SGPT [facility] ([facility]) alkaline phosphatase 131 U/L 45-117 Above high normal Alkaline Phosphatase [facility] ([facility]) bilirubin,total 0.3 mg/dL 0.2-1.0 Bilirubin,total ATHE NA ([facility]) total protein 7.2 gm/dL 6.4-8.2 Total Protein [facility] ( [facility]) albumin 3.5 gm/dL 3.2-5.2 Albumin [facility] ([facility]) albumin/globulin ratio 1.2-2.2 Below low normal Albumin /globulin Ratio [facility] ([facility]) ID Date Data Source [id number] 10/02/2020 10:49:00 AM EDT [facility] ([facility]) Name Value Range Interpretation Code Description Data Mora rce(s) Supporting Document(s) estimated average glucose 128 mg/dL 60-110 Above high norm al Estimated Average Glucose [facility] ([facility]) Hemoglobin A1c/Hemoglobin.total in Blood 6.1 % Hemoglobin a1C [facility] ([facility]) ID Date Data Source [id number] 10/02/2020 10:49:00 AM EDT [facility] ([facility]) Name Value Range Interpretation Code Description Data Mora rce(s) Supporting Document(s) white blood count 11.3 10 4.0-10.0 Above high normal White Blood Count [facility] ([facility]) red blood count 4.73 10 4.00-5.40 Red Blood Count [facility] ([facility]) hemoglobin 15.1 g/dL 12.0-15.5 Hemoglobin [facility] ([facility]) hematocrit 46.1 % 36.0-47.0 Hematocrit [facility] ([facility]) mean corpuscular hemoglobin 31.9 pg 27.0-33.0 Mean Cor puscular Hemoglobin [facility] ([facility]) mean corpuscular volume 97.5 fL 80.0-96.0 Above high normal Mean Corpuscular Volume [facility] ([facility]) red cell distribution width 13.5 % 11.5-14.5 Red Cell Distribution Width [facility] ([facility]) mean corpuscular HGB conc 32.8 g/dL 32.0-36.5 Mean Corpu scular HGB Conc [facility] ([facility]) platelet count, automated 459 10 150-450 Above high norm al Platelet Count, Automated [facility] ([facility]) neutrophils % 62.6 % 36.0-66.0 Neutrophils % RAD[facility] ( [facility]) lymph % 26.7 % 24.0-44.0 Lymph % RAD[facility] ([facility]) mono % 7.7 % 2.0-8.0 [facility] % [facility] ([facility]) baso % 0.7 % 0.0-1.0 Baso % [place]) eos % 1.9 % 0.0-3.0 Eos % [place] ([facility]) nucleated red blood cell % 0.0 % 0-0 Nucleated Red Blood Cell % [place] ([facility]) immature granulocyte % 0.4 % 0-3.0 Immature Gran ulocyte % [place] ([facility]) lymph # 3.0 10 1.5-5.0 Lymph # [place] ([facility]) neutrophils # 7.1 10 1.5-8.5 Neutrophils # [place] ( [facility]) mono # 0.9 10 0.0-0.[address] [facility] # [facility] ([facility]) baso # 0.1 10 0.0-0.2 Baso # [facility] ([facility]) eos # 0.2 10 0.0-0.5 Eos # [facility] ([facility]) ID Date Data Source [id number] 10/02/2020 10:49:00 AM EDT [place] ([facility]) Name Value Range Interpretation Code Description Data Mora rce(s) Supporting Document(s) triglycerides level 309 mg/dL <150 Above high normal Triglycer ides Level [facility] ([facility]) cholesterol level 144 mg/dL <200 Cholesterol Level [facility] ([facility]) HDL cholesterol 35 mg/dL >40 Below low normal HDL Cholestero l [facility] ([facility]) non-HDL-C 109 mg/dL Non-hdl-c [place] ([facility]) Cholesterol in LDL [Mass/volume] in Serum or Plasma 47 mg/dL <1 00 LDL Cholesterol [facility] ([facility]) cholesterol risk ratio <5 Cholesterol R isk Ratio [facility] ([facility]) ID Date Data Source [id number] 10/02/2020 10:49:00 AM EDT [place] ([facility]) Name Value Range Interpretation Code Description Data Mora rce(s) Supporting Document(s) glucose, fasting 119 mg/dL 70-100 Above high normal Glucose, Fas ting [facility] ([facility]) blood urea nitrogen 8 mg/dL 7-18 Blood Urea Nitro gen [facility] ([facility]) glomerular filtration rate > 60.0 >58 Glomerula r Filtration Rate RAHDA ([facility]) sodium level 140 mEq/L 136-145 Sodium Level [facility] ([facility]) creatinine for GFR 0.67 mg/dL 0.55-1.30 Creatinine for GF R [facility] ([facility]) potassium serum 4.3 mEq/L 3.5-5.1 Potassium Serum ATHE NA ([facility]) chloride level 107 mEq/L 98-107 Chloride Level [facility] ([facility]) anion gap 7 mEq/L 8-16 Below low normal Anion Gap [facility] ( [facility]) carbon dioxide level 26 mEq/L 21-32 Carbon Dioxide Level [facility] ([facility]) calcium level 8.9 mg/dL 8.5-10.1 Calcium Level [facility] ( [facility]) ALT/SGPT 20 U/L 12-78 ALT/SGPT [facility] ([facility]) AST/SGOT 10 U/L 7-37 AST/SGOT [facility] ([facility]) alkaline phosphatase 131 U/L 45-117 Above high normal Alkaline Phosphatase [facility] ([facility]) bilirubin,total 0.3 mg/dL 0.2-1.0 Bilirubin,total ATHE ([facility]) total protein 7.2 gm/dL 6.4-8.2 Total Protein RDAHA ( [facility]) albumin 3.5 gm/dL 3.2-5.2 Albumin [facility] ([facility]) albumin/globulin ratio 1.2-2.2 Below low normal Albumin /globulin Ratio [facility] ([facility]) ID Date Data Source [id number] 10/02/2020 10:49:00 AM EDT [facility]) Name Value Range Interpretation Code Description Data Mora rce(s) Supporting Document(s) Hemoglobin A1c/Hemoglobin.total in Blood 6.1 % Hemoglobin a1C [facility] ([facility]) estimated average glucose 128 mg/dL 60-110 Above high norm al Estimated Average Glucose [place] ([facility]) ID Date Data Source [id number] 10/02/2020 10:49:00 AM EDT [place] ([facility]) Name Value Range Interpretation Code Description Data Mora rce(s) Supporting Document(s) white blood count 11.3 10 4.0-10.0 Above high normal White Blood Count [facility] ([facility]) red blood count 4.73 10 4.00-5.40 Red Blood Count ATHE ([facility]) hematocrit 46.1 % 36.0-47.0 Hematocrit [facility] ([facility]) hemoglobin 15.1 g/dL 12.0-15.5 Hemoglobin [facility] ([facility]) mean corpuscular volume 97.5 fL 80.0-96.0 Above high normal Mean Corpuscular Volume [facility] ([facility]) mean corpuscular hemoglobin 31.9 pg 27.0-33.0 Mean Cor puscular Hemoglobin [facility] ([facility]) mean corpuscular HGB conc 32.8 g/dL 32.0-36.5 Mean Corpu scular HGB Conc [facility] ([facility]) platelet count, automated 459 10 150-450 Above high norm al Platelet Count, Automated [facility] ([facility]) red cell distribution width 13.5 % 11.5-14.5 Red Cell Distribution Width [facility] ([facility]) neutrophils % 62.6 % 36.0-66.0 Neutrophils % [facility] ( [facility]) lymph % 26.7 % 24.0-44.0 Lymph % [facility] ([facility]) mono % 7.7 % 2.0-8.0 [facility] % [facility] ([facility]) baso % 0.7 % 0.0-1.0 Baso % [facility] ([facility]) eos % 1.9 % 0.0-3.0 Eos % [facility] ([facility]) nucleated red blood cell % 0.0 % 0-0 Nucleated Red Blood Cell % [facility] ([facility]) immature granulocyte % 0.4 % 0-3.0 Immature Gran ulocyte % [facility] ([facility]) neutrophils # 7.1 10 1.5-8.5 Neutrophils # [facility] ( [facility]) lymph # 3.0 10 1.5-5.0 Lymph # [facility] ([facility]) mono # 0.9 10 0.0-0.[address] [facility] # [facility] ([facility]) eos # 0.2 10 0.0-0.5 Eos # [facility] ([facility]) baso # 0.1 10 0.0-0.2 Baso # [facility] ([facility]) ID Date Data Source [id number] 10/02/2020 10:49:00 AM EDT [place] ([facility]) Name Value Range Interpretation Code Description Data Mora rce(s) Supporting Document(s) cholesterol level 144 mg/dL <200 Cholesterol Level [facility] ([facility]) triglycerides level 309 mg/dL <150 Above high normal Triglycer ides Level [facility] ([facility]) Cholesterol in LDL [Mass/volume] in Serum or Plasma 47 mg/dL <1 00 LDL Cholesterol [facility] ([facility]) HDL cholesterol 35 mg/dL >40 Below low normal HDL Cholestero l [facility] ([facility]) non-HDL-C 109 mg/dL Non-hdl-c [facility] ([facility]) cholesterol risk ratio <5 Cholesterol R isk Ratio [facility] ([facility]) ID Date Data Source [id number] 10/02/2020 10:49:00 AM EDT [facility] ([facility]) Name Value Range Interpretation Code Description Data Mora rce(s) Supporting Document(s) glucose, fasting 119 mg/dL 70-100 Above high normal Glucose, Fas ting [facility] ([facility]) blood urea nitrogen 8 mg/dL 7-18 Blood Urea Nitro gen [facility] ([facility]) creatinine for GFR 0.67 mg/dL 0.55-1.30 Creatinine for GF R [facility] ([facility]) glomerular filtration rate > 60.0 >58 Glomerula r Filtration Rate [facility] ([facility]) potassium serum 4.3 mEq/L 3.5-5.1 Potassium Serum ATHE NA ([facility]) sodium level 140 mEq/L 136-145 Sodium Level [facility] ([facility]) chloride level 107 mEq/L 98-107 Chloride Level [facility] ([facility]) carbon dioxide level 26 mEq/L 21-32 Carbon Dioxide Level [facility] ([facility]) anion gap 7 mEq/L 8-16 Below low normal Anion Gap [facility] ( [facility]) calcium level 8.9 mg/dL 8.5-10.1 Calcium Level [place] ( [facility]) AST/SGOT 10 U/L 7-37 AST/SGOT [facility] ([facility]) ALT/SGPT 20 U/L 12-78 ALT/SGPT [facility] ([facility]) alkaline phosphatase 131 U/L 45-117 Above high normal Alkaline Phosphatase [facility] ([facility]) bilirubin,total 0.3 mg/dL 0.2-1.0 Bilirubin,total ATHE NA ([facility]) total protein 7.2 gm/dL 6.4-8.2 Total Protein [facility] ( [facility]) albumin 3.5 gm/dL 3.2-5.2 Albumin [facility] ([facility]) albumin/globulin ratio 1.2-2.2 Below low normal Albumin /globulin Ratio [facility] ([facility]) ID Date Data Source [id number] 10/02/2020 10:49:00 AM EDT [place] ([facility]) Name Value Range Interpretation Code Description Data Mora rce(s) Supporting Document(s) Hemoglobin A1c/Hemoglobin.total in Blood 6.1 % Hemoglobin a1C [facility] ([facility]) estimated average glucose 128 mg/dL 60-110 Above high norm al Estimated Average Glucose [facility] ([facility]) ID Date Data Source [id number] 10/02/2020 10:49:00 AM EDT [facility] ([facility]) Name Value Range Interpretation Code Description Data Mora rce(s) Supporting Document(s) white blood count 11.3 10 4.0-10.0 Above high normal White Blood Count [facility] ([facility]) red blood count 4.73 10 4.00-5.40 Red Blood Count ATHE ([facility]) hemoglobin 15.1 g/dL 12.0-15.5 Hemoglobin [facility] ([facility]) hematocrit 46.1 % 36.0-47.0 Hematocrit [facility] ([facility]) mean corpuscular volume 97.5 fL 80.0-96.0 Above high normal Mean Corpuscular Volume [place] ([facility]) mean corpuscular HGB conc 32.8 g/dL 32.0-36.5 Mean Corpu scular HGB Conc [facility] ([facility]) mean corpuscular hemoglobin 31.9 pg 27.0-33.0 Mean Cor puscular Hemoglobin [facility] ([facility]) platelet count, automated 459 10 150-450 Above high norm al Platelet Count, Automated [facility] ([facility]) red cell distribution width 13.5 % 11.5-14.5 Red Cell Distribution Width [facility] ([facility]) neutrophils % 62.6 % 36.0-66.0 Neutrophils % [facility] ( [facility]) lymph % 26.7 % 24.0-44.0 Lymph % [facility] ([facility]) mono % 7.7 % 2.0-8.0 [facility] % [facility] ([facility]) eos % 1.9 % 0.0-3.0 Eos % [facility] ([facility]) baso % 0.7 % 0.0-1.0 Baso % [facility] ([facility]) immature granulocyte % 0.4 % 0-3.0 Immature Gran ulocyte % [facility] ([facility]) neutrophils # 7.1 10 1.5-8.5 Neutrophils # [facility] ( [facility]) nucleated red blood cell % 0.0 % 0-0 Nucleated Red Blood Cell % [facility] ([facility]) mono # 0.9 10 0.0-0.[address] [facility] # [facility] ([facility]) lymph # 3.0 10 1.5-5.0 Lymph # [facility] ([facility]) eos # 0.2 10 0.0-0.5 Eos # [facility] ([facility]) baso # 0.1 10 0.0-0.2 Baso # [facility] ([facility]) ID Date Data Source [id number] 10/02/2020 10:49:00 AM EDT [place] ([facility]) Name Value Range Interpretation Code Description Data Mora rce(s) Supporting Document(s) triglycerides level 309 mg/dL <150 Above high normal Triglycer ides Level [facility] ([facility]) cholesterol level 144 mg/dL <200 Cholesterol Level [facility] ([facility]) HDL cholesterol 35 mg/dL >40 Below low normal HDL Cholestero l [facility] ([facility]) Cholesterol in LDL [Mass/volume] in Serum or Plasma 47 mg/dL <1 00 LDL Cholesterol [facility] ([facility]) non-HDL-C 109 mg/dL Non-hdl-c [facility] ([facility]) cholesterol risk ratio <5 Cholesterol R isk Ratio [place] ([facility]) ID Date Data Source [id number] 10/02/2020 10:49:00 AM EDT [facility] ([facility]) Name Value Range Interpretation Code Description Data Mora rce(s) Supporting Document(s) glucose, fasting 119 mg/dL 70-100 Above high normal Glucose, Fas ting [facility] ([facility]) blood urea nitrogen 8 mg/dL 7-18 Blood Urea Nitro gen [facility] ([facility]) creatinine for GFR 0.67 mg/dL 0.55-1.30 Creatinine for GF R [facility] ([facility]) sodium level 140 mEq/L 136-145 Sodium Level [facility] ([facility]) glomerular filtration rate > 60.0 >58 Glomerula r Filtration Rate [facility] ([facility]) potassium serum 4.3 mEq/L 3.5-5.1 Potassium Serum ATHE NA ([facility]) chloride level 107 mEq/L 98-107 Chloride Level [place] ([facility]) carbon dioxide level 26 mEq/L 21-32 Carbon Dioxide Level [facility] ([facility]) anion gap 7 mEq/L 8-16 Below low normal Anion Gap [facility] ( [facility]) calcium level 8.9 mg/dL 8.5-10.1 Calcium Level [facility] ( [facility]) AST/SGOT 10 U/L 7-37 AST/SGOT [facility] ([facility]) ALT/SGPT 20 U/L 12-78 ALT/SGPT [place] ([facility]) bilirubin,total 0.3 mg/dL 0.2-1.0 Bilirubin,total ATHE [facility]) alkaline phosphatase 131 U/L 45-117 Above high normal Alkaline Phosphatase [facility] ([facility]) total protein 7.2 gm/dL 6.4-8.2 Total Protein [facility] ( [facility]) albumin 3.5 gm/dL 3.2-5.2 Albumin [facility] ([facility]) albumin/globulin ratio 1.2-2.2 Below low normal Albumin /globulin Ratio [facility] ([facility]) ID Date Data Source [id number] 10/02/2020 10:49:00 AM EDT [facility] ([facility]) Name Value Range Interpretation Code Description Data Mora rce(s) Supporting Document(s) Hemoglobin A1c/Hemoglobin.total in Blood 6.1 % Hemoglobin a1C [facility] ([facility]) estimated average glucose 128 mg/dL 60-110 Above high norm al Estimated Average Glucose [facility] ([facility]) ID Date Data Source [id number] 10/02/2020 10:49:00 AM EDT [facility] ([facility]) Name Value Range Interpretation Code Description Data Mora rce(s) Supporting Document(s) white blood count 11.3 10 4.0-10.0 Above high normal White Blood Count [facility] ([facility]) red blood count 4.73 10 4.00-5.40 Red Blood Count ATHE ([facility]) hematocrit 46.1 % 36.0-47.0 Hematocrit [facility] ([facility]) hemoglobin 15.1 g/dL 12.0-15.5 Hemoglobin [facility] ([facility]) mean corpuscular volume 97.5 fL 80.0-96.0 Above high normal Mean Corpuscular Volume [facility] ([facility]) mean corpuscular hemoglobin 31.9 pg 27.0-33.0 Mean Cor puscular Hemoglobin [facility] ([facility]) mean corpuscular HGB conc 32.8 g/dL 32.0-36.5 Mean Corpu scular HGB Conc [facility] ([facility]) red cell distribution width 13.5 % 11.5-14.5 Red Cell Distribution Width [facility] ([facility]) platelet count, automated 459 10 150-450 Above high norm al Platelet Count, Automated [facility] ([facility]) lymph % 26.7 % 24.0-44.0 Lymph % [facility] ([facility]) neutrophils % 62.6 % 36.0-66.0 Neutrophils % [facility] ( [facility]) eos % 1.9 % 0.0-3.0 Eos % [facility] ([facility]) mono % 7.7 % 2.0-8.0 [facility] % [facility] ([facility]) baso % 0.7 % 0.0-1.0 Baso % [facility] ([facility]) immature granulocyte % 0.4 % 0-3.0 Immature Gran ulocyte % [facility] ([facility]) nucleated red blood cell % 0.0 % 0-0 Nucleated Red Blood Cell % [facility] ([facility]) neutrophils # 7.1 10 1.5-8.5 Neutrophils # [facility] ( [facility]) eos # 0.2 10 0.0-0.5 Eos # [facility] ([facility]) mono # 0.9 10 0.0-0.[address] [facility] # [facility] ([facility]) lymph # 3.0 10 1.5-5.0 Lymph # [facility] ([facility]) baso # 0.1 10 0.0-0.2 Baso # [facility] ([facility]) ID Date Data Source [id number] 10/02/2020 10:49:00 AM EDT [place] ([facility]) Name Value Range Interpretation Code Description Data Mora rce(s) Supporting Document(s) triglycerides level 309 mg/dL <150 Above high normal Triglycer ides Level [facility] ([facility]) HDL cholesterol 35 mg/dL >40 Below low normal HDL Cholestero l [facility] ([facility]) cholesterol level 144 mg/dL <200 Cholesterol Level [facility] ([facility]) non-HDL-C 109 mg/dL Non-hdl-c [facility] ([facility]) Cholesterol in LDL [Mass/volume] in Serum or Plasma 47 mg/dL <1 00 LDL Cholesterol [facility] ([facility]) cholesterol risk ratio <5 Cholesterol R isk Ratio [place] ([facility]) ID Date Data Source [id number] 10/02/2020 10:49:00 AM EDT [place] ([facility]) Name Value Range Interpretation Code Description Data Mora rce(s) Supporting Document(s) glucose, fasting 119 mg/dL 70-100 Above high normal Glucose, Fas ting [facility] ([facility]) blood urea nitrogen 8 mg/dL 7-18 Blood Urea Nitro gen [facility] ([facility]) creatinine for GFR 0.67 mg/dL 0.55-1.30 Creatinine for GF R [facility] ([facility]) glomerular filtration rate > 60.0 >58 Glomerula r Filtration Rate [facility] ([facility]) sodium level 140 mEq/L 136-145 Sodium Level [facility] ([facility]) potassium serum 4.3 mEq/L 3.5-5.1 Potassium Serum ATHE NA ([facility]) chloride level 107 mEq/L 98-107 Chloride Level [facility] ([facility]) carbon dioxide level 26 mEq/L 21-32 Carbon Dioxide Level [facility] ([facility]) anion gap 7 mEq/L 8-16 Below low normal Anion Gap [facility] ( [facility]) AST/SGOT 10 U/L 7-37 AST/SGOT [facility] ([facility]) calcium level 8.9 mg/dL 8.5-10.1 Calcium Level [facility] ( [facility]) alkaline phosphatase 131 U/L 45-117 Above high normal Alkaline Phosphatase [facility] ([facility]) ALT/SGPT 20 U/L 12-78 ALT/SGPT [facility] ([facility]) total protein 7.2 gm/dL 6.4-8.2 Total Protein [facility] ( [facility]) bilirubin,total 0.3 mg/dL 0.2-1.0 Bilirubin,total ATHE ([facility]) albumin 3.5 gm/dL 3.2-5.2 Albumin [facility] ([facility]) albumin/globulin ratio 1.2-2.2 Below low normal Albumin /globulin Ratio [facility] ([facility]) ID Date Data Source [id number] 10/02/2020 10:49:00 AM EDT [facility] ([facility]) Name Value Range Interpretation Code Description Data Mora rce(s) Supporting Document(s) Hemoglobin A1c/Hemoglobin.total in Blood 6.1 % Hemoglobin a1C [facility] ([facility]) estimated average glucose 128 mg/dL 60-110 Above high norm al Estimated Average Glucose [facility] ([facility]) ID Date Data Source [id number] 08/20/2020 01:14:00 PM EDT [facility]) Name Value Range Interpretation Code Description Data Mora rce(s) Supporting Document(s) sars-cov-2 negative negative Sars-cov-2 [place] ([facility]) ID Date Data Source [id number] 08/20/2020 01:14:00 PM EDT [facility]) Name Value Range Interpretation Code Description Data Mora rce(s) Supporting Document(s) sars-cov-2 negative negative Sars-cov-2 [facility]) ID Date Data Source [id number] 08/20/2020 01:14:00 PM EDT [facility]) Name Value Range Interpretation Code Description Data Mora rce(s) Supporting Document(s) sars-cov-2 negative negative Sars-cov-2 [facility]) ID Date Data Source [id number] 08/20/2020 01:14:00 PM EDT [facility]) Name Value Range Interpretation Code Description Data Mora rce(s) Supporting Document(s) sars-cov-2 negative negative Sars-cov-2 [facility]) ID Date Data Source [id number] 08/20/2020 01:14:00 PM EDT [facility]) Name Value Range Interpretation Code Description Data Mora rce(s) Supporting Document(s) sars-cov-2 negative negative Sars-cov-2 [facility]) ID Date Data Source [id number] 08/20/2020 01:14:00 PM EDT [facility]) Name Value Range Interpretation Code Description Data Mora rce(s) Supporting Document(s) sars-cov-2 negative negative Sars-cov-2 [place] ([facility]) ID Date Data Source [id number] 08/20/2020 01:14:00 PM EDT [facility] ([facility]) Name Value Range Interpretation Code Description Data Mora rce(s) Supporting Document(s) sars-cov-2 negative negative Sars-cov-2 [place] ([facility]) ID Date Data Source [id number] 08/20/2020 01:14:00 PM EDT [place] ([facility]) Name Value Range Interpretation Code Description Data Mroa rce(s) Supporting Document(s) sars-cov-2 negative negative Sars-cov-2 [place] ([facility]) ID Date Data Source [id number] 08/20/2020 01:10:00 PM EDT [facility] Name Value Range Interpretation Code Description Data Mora rce(s) Supporting Document(s) SARS coronavirus 2 RdRp gene [Presence] in Respiratory specimen by ISSA with probe detection Not detected [facility] This lab was ordered by [facility] and reported by [facility]. ID Date Data Source [id number] 05/23/2020 09:00:00 AM EST [place] ([facility]) Name Value Range Interpretation Code Description Data Mora rce(s) Supporting Document(s) Hemoglobin A1c/Hemoglobin.total in Blood 6.1 % Hemoglobin a1C [place] ([facility]) estimated average glucose 128 mg/dL 60-110 Above high norm al Estimated Average Glucose [place] ([facility]) ID Date Data Source [id number] 05/23/2020 09:00:00 AM EST [place] ([facility]) Name Value Range Interpretation Code Description Data Mora rce(s) Supporting Document(s) HDL cholesterol 37 mg/dL >40 Below low normal HDL Cholestero l [place] ([facility]) cholesterol level 155 mg/dL <200 Cholesterol Level [facility] ([facility]) triglycerides level 228 mg/dL <150 Above high normal Triglycer ides Level [facility] ([facility]) non-HDL-C 118 mg/dL Non-hdl-c [facility] ([facility]) cholesterol risk ratio <5 Cholesterol R isk Ratio [facility] ([facility]) Cholesterol in LDL [Mass/volume] in Serum or Plasma 72 mg/dL <1 00 LDL Cholesterol [facility] ([facility]) ID Date Data Source [id number] 05/23/2020 09:00:00 AM EST [facility] ([facility]) Name Value Range Interpretation Code Description Data Mora rce(s) Supporting Document(s) blood urea nitrogen 11 mg/dL 7-18 Blood Urea Nitro gen [facility] ([facility]) glucose, fasting 108 mg/dL 70-100 Above high normal Glucose, Fas ting [facility] ([facility]) creatinine for GFR 0.72 mg/dL 0.55-1.30 Creatinine for GF R [facility] ([facility]) glomerular filtration rate > 60.0 >58 Glomerula r Filtration Rate [facility] ([facility]) sodium level 139 mEq/L 136-145 Sodium Level [facility] ([facility]) carbon dioxide level 25 mEq/L 21-32 Carbon Dioxide Level [facility] ([facility]) chloride level 107 mEq/L 98-107 Chloride Level [facility] ([facility]) potassium serum 4.4 mEq/L 3.5-5.1 Potassium Serum [facility] NA ([facility]) anion gap 7 mEq/L 8-16 Below low normal Anion Gap [facility] ( [facility]) calcium level 8.8 mg/dL 8.5-10.1 Calcium Level [facility] ( [facility]) AST/SGOT 9 U/L 7-37 AST/SGOT [facility] ([facility]) ALT/SGPT 19 U/L 12-78 ALT/SGPT [facility] ([facility]) alkaline phosphatase 118 U/L 45-117 Above high normal Alkaline Phosphatase [facility] ([facility]) bilirubin,total 0.4 mg/dL 0.2-1.0 Bilirubin,total [facility] NA ([facility]) albumin 3.5 gm/dL 3.2-5.2 Albumin [facility] ([facility]) total protein 6.9 gm/dL 6.4-8.2 Total Protein [facility] ( [facility]) albumin/globulin ratio 1.2-2.2 Below low normal Albumin /globulin Ratio [facility] ([facility]) ID Date Data Source [id number] 05/23/2020 09:00:00 AM EST [facility] ([facility]) Name Value Range Interpretation Code Description Data Mora rce(s) Supporting Document(s) white blood count 10.6 10 4.0-10.0 Above high normal White Blood Count [facility] ([facility]) red blood count 4.71 10 4.00-5.40 Red Blood Count [facility] ([facility]) mean corpuscular volume 95.1 fL 80.0-96.0 Mean Corpusc ular Volume [facility] ([facility]) hemoglobin 14.7 g/dL 12.0-15.5 Hemoglobin [facility] ([facility]) hematocrit 44.8 % 36.0-47.0 Hematocrit [facility] ([facility]) mean corpuscular hemoglobin 31.2 pg 27.0-33.0 Mean Cor puscular Hemoglobin [facility] ([facility]) mean corpuscular HGB conc 32.8 g/dL 32.0-36.5 Mean Corpu scular HGB Conc [facility] ([facility]) neutrophils % 65.7 % 36.0-66.0 Neutrophils % [facility] ( [facility]) red cell distribution width 13.4 % 11.5-14.5 Red Cell Distribution Width [facility] ([facility]) platelet count, automated 408 10 150-450 Platelet C ount, Automated [facility] ([facility]) eos % 1.4 % 0.0-3.0 Eos % [facility] ([facility]) lymph % 24.4 % 24.0-44.0 Lymph % [facility] ([facility]) mono % 7.5 % 0.0-5.[address] [facility] % [facility] ([facility]) nucleated red blood cell % 0.0 % 0-0 Nucleated Red Blood Cell % [facility] ([facility]) immature granulocyte % 0.5 % 0-3.0 Immature Gran ulocyte % [facility] ([facility]) baso % 0.5 % 0.0-1.0 Baso % [facility] ([facility]) neutrophils # 7.0 10 1.5-8.5 Neutrophils # [facility] ( [facility]) lymph # 2.6 10 1.5-5.0 Lymph # [facility] ([facility]) baso # 0.1 10 0.0-0.2 Baso # [facility] ([facility]) mono # 0.8 10 0.0-0.8 [facility] # [facility] ([facility]) eos # 0.2 10 0.0-0.5 Eos # [facility] ([facility]) ID Date Data Source [id number] 05/23/2020 09:00:00 AM EST [facility] ([facility]) Name Value Range Interpretation Code Description Data Mora rce(s) Supporting Document(s) Hemoglobin A1c/Hemoglobin.total in Blood 6.1 % Hemoglobin a1C [facility] ([facility]) estimated average glucose 128 mg/dL 60-110 Above high norm al Estimated Average Glucose [place] ([facility]) ID Date Data Source [id number] 05/23/2020 09:00:00 AM EST [facility] ([facility]) Name Value Range Interpretation Code Description Data Mora rce(s) Supporting Document(s) triglycerides level 228 mg/dL <150 Above high normal Triglycer ides Level [facility] ([facility]) HDL cholesterol 37 mg/dL >40 Below low normal HDL Cholestero l [facility] ([facility]) cholesterol level 155 mg/dL <200 Cholesterol Level [facility] ([facility]) non-HDL-C 118 mg/dL Non-hdl-c [facility] ([facility]) Cholesterol in LDL [Mass/volume] in Serum or Plasma 72 mg/dL <1 00 LDL Cholesterol [facility] ([facility]) cholesterol risk ratio <5 Cholesterol R isk Ratio [facility] ([facility]) ID Date Data Source [id number] 05/23/2020 09:00:00 AM EST [facility] ([facility]) Name Value Range Interpretation Code Description Data Mora rce(s) Supporting Document(s) glucose, fasting 108 mg/dL 70-100 Above high normal Glucose, Fas ting [facility] ([facility]) creatinine for GFR 0.72 mg/dL 0.55-1.30 Creatinine for GF R [facility] ([facility]) blood urea nitrogen 11 mg/dL 7-18 Blood Urea Nitro gen [facility] ([facility]) sodium level 139 mEq/L 136-145 Sodium Level [facility] ([facility]) potassium serum 4.4 mEq/L 3.5-5.1 Potassium Serum [facility] NA ([facility]) glomerular filtration rate > 60.0 >58 Glomerula r Filtration Rate [facility] ([facility]) chloride level 107 mEq/L 98-107 Chloride Level [place] ([facility]) carbon dioxide level 25 mEq/L 21-32 Carbon Dioxide Level [facility] ([facility]) calcium level 8.8 mg/dL 8.5-10.1 Calcium Level [facility] ( [facility]) AST/SGOT 9 U/L 7-37 AST/SGOT [facility] ([facility]) anion gap 7 mEq/L 8-16 Below low normal Anion Gap [facility] ( [facility]) ALT/SGPT 19 U/L 12-78 ALT/SGPT [facility] ([facility]) bilirubin,total 0.4 mg/dL 0.2-1.0 Bilirubin,total [facility] ([facility]) alkaline phosphatase 118 U/L 45-117 Above high normal Alkaline Phosphatase [facility] ([facility]) albumin 3.5 gm/dL 3.2-5.2 Albumin [facility] ([facility]) albumin/globulin ratio 1.2-2.2 Below low normal Albumin /globulin Ratio [facility] ([facility]) total protein 6.9 gm/dL 6.4-8.2 Total Protein [facility] ( [facility]) ID Date Data Source [id number] 05/23/2020 09:00:00 AM EST [facility] ([facility]) Name Value Range Interpretation Code Description Data Mora rce(s) Supporting Document(s) white blood count 10.6 10 4.0-10.0 Above high normal White Blood Count [facility] ([facility]) red blood count 4.71 10 4.00-5.40 Red Blood Count [facility] ([facility]) hematocrit 44.8 % 36.0-47.0 Hematocrit [facility] ([facility]) hemoglobin 14.7 g/dL 12.0-15.5 Hemoglobin [facility] ([facility]) mean corpuscular volume 95.1 fL 80.0-96.0 Mean Corpusc ular Volume [facility] ([facility]) mean corpuscular HGB conc 32.8 g/dL 32.0-36.5 Mean Corpu scular HGB Conc [facility] ([facility]) mean corpuscular hemoglobin 31.2 pg 27.0-33.0 Mean Cor puscular Hemoglobin [facility] ([facility]) red cell distribution width 13.4 % 11.5-14.5 Red Cell Distribution Width [facility] ([facility]) platelet count, automated 408 10 150-450 Platelet C ount, Automated [facility] ([facility]) mono % 7.5 % 0.0-5.[address] [facility] [place] % [facility] ([facility]) lymph % 24.4 % 24.0-44.0 Lymph % [facility] ([facility]) neutrophils % 65.7 % 36.0-66.0 Neutrophils % [facility] ( [facility]) eos % 1.4 % 0.0-3.0 Eos % [facility] ([facility]) baso % 0.5 % 0.0-1.0 Baso % [facility] ([facility]) immature granulocyte % 0.5 % 0-3.0 Immature Gran ulocyte % [facility] ([facility]) nucleated red blood cell % 0.0 % 0-0 Nucleated Red Blood Cell % [facility] ([facility]) neutrophils # 7.0 10 1.5-8.5 Neutrophils # [facility] ( [facility]) mono # 0.8 10 0.0-0.8 [facility] [place] # [facility] ([facility]) eos # 0.2 10 0.0-0.5 Eos # [facility] ([facility]) lymph # 2.6 10 1.5-5.0 Lymph # [facility] ([facility]) baso # 0.1 10 0.0-0.2 Baso # [facility] ([facility]) ID Date Data Source [id number] 05/23/2020 09:00:00 AM EST [facility] ([facility]) Name Value Range Interpretation Code Description Data Mora rce(s) Supporting Document(s) Hemoglobin A1c/Hemoglobin.total in Blood 6.1 % Hemoglobin a1C [facility] ([facility]) estimated average glucose 128 mg/dL 60-110 Above high norm al Estimated Average Glucose [facility] ([facility]) ID Date Data Source [id number] 05/23/2020 09:00:00 AM EST [facility] ([facility]) Name Value Range Interpretation Code Description Data Mora rce(s) Supporting Document(s) triglycerides level 228 mg/dL <150 Above high normal Triglycer ides Level [facility] ([facility]) cholesterol level 155 mg/dL <200 Cholesterol Level [facility] ([facility]) HDL cholesterol 37 mg/dL >40 Below low normal HDL Cholestero l [facility] ([facility]) non-HDL-C 118 mg/dL Non-hdl-c [facility] ([facility]) Cholesterol in LDL [Mass/volume] in Serum or Plasma 72 mg/dL <1 00 LDL Cholesterol [facility] ([facility]) cholesterol risk ratio <5 Cholesterol R isk Ratio [facility] ([facility]) ID Date Data Source [id number] 05/23/2020 09:00:00 AM EST [facility] ([facility]) Name Value Range Interpretation Code Description Data Mora rce(s) Supporting Document(s) glucose, fasting 108 mg/dL 70-100 Above high normal Glucose, Fas ting [facility] ([facility]) blood urea nitrogen 11 mg/dL 7-18 Blood Urea Nitro gen [facility] ([facility]) creatinine for GFR 0.72 mg/dL 0.55-1.30 Creatinine for GF R [facility] ([facility]) potassium serum 4.4 mEq/L 3.5-5.1 Potassium Serum [facility] NA ([facility]) sodium level 139 mEq/L 136-145 Sodium Level [facility] ([facility]) glomerular filtration rate > 60.0 >58 Glomerula r Filtration Rate [facility] ([facility]) chloride level 107 mEq/L 98-107 Chloride Level [facility] ([facility]) carbon dioxide level 25 mEq/L 21-32 Carbon Dioxide Level [facility] ([facility]) anion gap 7 mEq/L 8-16 Below low normal Anion Gap [facility] ( [facility]) ALT/SGPT 19 U/L 12-78 ALT/SGPT [facility] ([facility]) AST/SGOT 9 U/L 7-37 AST/SGOT [facility] ([facility]) calcium level 8.8 mg/dL 8.5-10.1 Calcium Level [facility] ( [facility]) bilirubin,total 0.4 mg/dL 0.2-1.0 Bilirubin,total ATHE NA ([facility]) alkaline phosphatase 118 U/L 45-117 Above high normal Alkaline Phosphatase [facility] ([facility]) total protein 6.9 gm/dL 6.4-8.2 Total Protein [facility] ( [facility]) albumin 3.5 gm/dL 3.2-5.2 Albumin [facility] ([facility]) albumin/globulin ratio 1.2-2.2 Below low normal Albumin /globulin Ratio [facility] ([facility]) ID Date Data Source [id number] 05/23/2020 09:00:00 AM EST [facility] ([facility]) Name Value Range Interpretation Code Description Data Mora rce(s) Supporting Document(s) red blood count 4.71 10 4.00-5.40 Red Blood Count [facility] NA ([facility]) white blood count 10.6 10 4.0-10.0 Above high normal White Blood Count [facility] ([facility]) hemoglobin 14.7 g/dL 12.0-15.5 Hemoglobin [facility] ([facility]) mean corpuscular volume 95.1 fL 80.0-96.0 Mean Corpusc ular Volume [facility] ([facility]) hematocrit 44.8 % 36.0-47.0 Hematocrit [facility] ([facility]) mean corpuscular HGB conc 32.8 g/dL 32.0-36.5 Mean Corpu scular HGB Conc [facility] ([facility]) mean corpuscular hemoglobin 31.2 pg 27.0-33.0 Mean Cor puscular Hemoglobin [facility] ([facility]) red cell distribution width 13.4 % 11.5-14.5 Red Cell Distribution Width [place] ([facility]) platelet count, automated 408 10 150-450 Platelet C ount, Automated [facility] ([facility]) neutrophils % 65.7 % 36.0-66.0 Neutrophils % [facility] ( [facility]) lymph % 24.4 % 24.0-44.0 Lymph % [facility] ([facility]) mono % 7.5 % 0.0-5.[address] [facility] % [facility] ([facility]) baso % 0.5 % 0.0-1.0 Baso % [facility] ([facility]) eos % 1.4 % 0.0-3.0 Eos % [place] ([facility]) immature granulocyte % 0.5 % 0-3.0 Immature Gran ulocyte % [facility] ([facility]) nucleated red blood cell % 0.0 % 0-0 Nucleated Red Blood Cell % [facility] ([facility]) lymph # 2.6 10 1.5-5.0 Lymph # [facility] ([facility]) neutrophils # 7.0 10 1.5-8.5 Neutrophils # [facility] ( [facility]) eos # 0.2 10 0.0-0.5 Eos # [facility] ([facility]) mono # 0.8 10 0.0-0.8 [facility] # [facility] ([facility]) baso # 0.1 10 0.0-0.2 Baso # [facility] ([facility]) ID Date Data Source [id number] 05/23/2020 09:00:00 AM EST [facility] ([facility]) Name Value Range Interpretation Code Description Data Mora rce(s) Supporting Document(s) Hemoglobin A1c/Hemoglobin.total in Blood 6.1 % Hemoglobin a1C [facility] ([facility]) estimated average glucose 128 mg/dL 60-110 Above high norm al Estimated Average Glucose [facility] ([facility]) ID Date Data Source [id number] 05/23/2020 09:00:00 AM EST [facility] ([facility]) Name Value Range Interpretation Code Description Data Mora rce(s) Supporting Document(s) triglycerides level 228 mg/dL <150 Above high normal Triglycer ides Level [facility] ([facility]) cholesterol level 155 mg/dL <200 Cholesterol Level [facility] ([facility]) non-HDL-C 118 mg/dL Non-hdl-c [facility] ([facility]) Cholesterol in LDL [Mass/volume] in Serum or Plasma 72 mg/dL <1 00 LDL Cholesterol [facility] ([facility]) HDL cholesterol 37 mg/dL >40 Below low normal HDL Cholestero l [facility] ([facility]) cholesterol risk ratio <5 Cholesterol R isk Ratio [facility] ([facility]) ID Date Data Source [id number] 05/23/2020 09:00:00 AM EST [facility] ([facility]) Name Value Range Interpretation Code Description Data Mora rce(s) Supporting Document(s) glucose, fasting 108 mg/dL 70-100 Above high normal Glucose, Fas ting [facility] ([facility]) creatinine for GFR 0.72 mg/dL 0.55-1.30 Creatinine for GF R [facility] ([facility]) blood urea nitrogen 11 mg/dL 7-18 Blood Urea Nitro gen [facility] ([facility]) potassium serum 4.4 mEq/L 3.5-5.1 Potassium Serum ATHE NA ([facility]) sodium level 139 mEq/L 136-145 Sodium Level [facility] ([facility]) chloride level 107 mEq/L 98-107 Chloride Level [facility] ([facility]) glomerular filtration rate > 60.0 >58 Glomerula r Filtration Rate [facility] ([facility]) carbon dioxide level 25 mEq/L 21-32 Carbon Dioxide Level [facility] ([facility]) anion gap 7 mEq/L 8-16 Below low normal Anion Gap [facility] ( [facility]) calcium level 8.8 mg/dL 8.5-10.1 Calcium Level [facility] ( [facility]) AST/SGOT 9 U/L 7-37 AST/SGOT [facility] ([facility]) ALT/SGPT 19 U/L 12-78 ALT/SGPT [facility] ([facility]) alkaline phosphatase 118 U/L 45-117 Above high normal Alkaline Phosphatase [facility] ([facility]) bilirubin,total 0.4 mg/dL 0.2-1.0 Bilirubin,total [facility] ([facility]) total protein 6.9 gm/dL 6.4-8.2 Total Protein [facility] ( [facility]) albumin/globulin ratio 1.2-2.2 Below low normal Albumin /globulin Ratio [facility] ([facility]) albumin 3.5 gm/dL 3.2-5.2 Albumin [facility] ([facility]) ID Date Data Source [id number] 05/23/2020 09:00:00 AM EST [facility] ([facility]) Name Value Range Interpretation Code Description Data Mora rce(s) Supporting Document(s) white blood count 10.6 10 4.0-10.0 Above high normal White Blood Count [facility] ([facility]) hemoglobin 14.7 g/dL 12.0-15.5 Hemoglobin [facility] ([facility]) red blood count 4.71 10 4.00-5.40 Red Blood Count ATHE NA ([facility]) hematocrit 44.8 % 36.0-47.0 Hematocrit [facility] ([facility]) mean corpuscular hemoglobin 31.2 pg 27.0-33.0 Mean Cor puscular Hemoglobin [facility] ([facility]) mean corpuscular volume 95.1 fL 80.0-96.0 Mean Corpusc ular Volume [facility] ([facility]) mean corpuscular HGB conc 32.8 g/dL 32.0-36.5 Mean Corpu scular HGB Conc [facility] ([facility]) red cell distribution width 13.4 % 11.5-14.5 Red Cell Distribution Width [facility] ([facility]) platelet count, automated 408 10 150-450 Platelet C ount, Automated [facility] ([facility]) neutrophils % 65.7 % 36.0-66.0 Neutrophils % [facility] ( [facility]) mono % 7.5 % 0.0-5.[address] [facility] % [facility] ([facility]) lymph % 24.4 % 24.0-44.0 Lymph % [facility] ([facility]) baso % 0.5 % 0.0-1.0 Baso % [facility] ([facility]) eos % 1.4 % 0.0-3.0 Eos % [facility] ([facility]) immature granulocyte % 0.5 % 0-3.0 Immature Gran ulocyte % [facility] ([facility]) nucleated red blood cell % 0.0 % 0-0 Nucleated Red Blood Cell % [facility] ([facility]) neutrophils # 7.0 10 1.5-8.5 Neutrophils # [facility] ( [facility]) lymph # 2.6 10 1.5-5.0 Lymph # [facility] ([facility]) eos # 0.2 10 0.0-0.5 Eos # [facility] ([facility]) mono # 0.8 10 0.0-0.8 [facility] # [facility] ([facility]) baso # 0.1 10 0.0-0.2 Baso # [facility] ([facility]) ID Date Data Source [id number] 05/23/2020 09:00:00 AM EST [facility] ([facility]) Name Value Range Interpretation Code Description Data Mora rce(s) Supporting Document(s) Hemoglobin A1c/Hemoglobin.total in Blood 6.1 % Hemoglobin a1C [place] ([facility]) estimated average glucose 128 mg/dL 60-110 Above high norm al Estimated Average Glucose [place] ([facility]) ID Date Data Source [id number] 05/23/2020 09:00:00 AM EST [facility] ([facility]) Name Value Range Interpretation Code Description Data Mora rce(s) Supporting Document(s) triglycerides level 228 mg/dL <150 Above high normal Triglycer ides Level [facility] ([facility]) cholesterol level 155 mg/dL <200 Cholesterol Level [place] ([facility]) Cholesterol in LDL [Mass/volume] in Serum or Plasma 72 mg/dL <1 00 LDL Cholesterol [place] ([facility]) HDL cholesterol 37 mg/dL >40 Below low normal HDL Cholestero l [place] ([facility]) non-HDL-C 118 mg/dL Non-hdl-c [facility] ([facility]) cholesterol risk ratio <5 Cholesterol R isk Ratio [place] ([facility]) ID Date Data Source [id number] 05/23/2020 09:00:00 AM EST [place] ([facility]) Name Value Range Interpretation Code Description Data Mora rce(s) Supporting Document(s) glucose, fasting 108 mg/dL 70-100 Above high normal Glucose, Fas ting [place] ([facility]) creatinine for GFR 0.72 mg/dL 0.55-1.30 Creatinine for GF R [place] ([facility]) blood urea nitrogen 11 mg/dL 7-18 Blood Urea Nitro gen [facility] ([facility]) potassium serum 4.4 mEq/L 3.5-5.1 Potassium Serum [facility] NA ([facility]) glomerular filtration rate > 60.0 >58 Glomer[place] r Filtration Rate [facility] ([facility]) sodium level 139 mEq/L 136-145 Sodium Level [facility] ([facility]) chloride level 107 mEq/L 98-107 Chloride Level [facility] ([facility]) anion gap 7 mEq/L 8-16 Below low normal Anion Gap [facility] ( [facility]) carbon dioxide level 25 mEq/L 21-32 Carbon Dioxide Level [facility] ([facility]) AST/SGOT 9 U/L 7-37 AST/SGOT [facility] ([facility]) calcium level 8.8 mg/dL 8.5-10.1 Calcium Level [facility] ( [facility]) ALT/SGPT 19 U/L 12-78 ALT/SGPT [facility] ([facility]) alkaline phosphatase 118 U/L 45-117 Above high normal Alkaline Phosphatase [facility] ([facility]) bilirubin,total 0.4 mg/dL 0.2-1.0 Bilirubin,total [facility] ([facility]) total protein 6.9 gm/dL 6.4-8.2 Total Protein [facility] ( [facility]) albumin 3.5 gm/dL 3.2-5.2 Albumin [facility] ([facility]) albumin/globulin ratio 1.2-2.2 Below low normal Albumin /globulin Ratio [facility] ([facility]) ID Date Data Source [id number] 05/23/2020 09:00:00 AM EST [facility] ([facility]) Name Value Range Interpretation Code Description Data Mora rce(s) Supporting Document(s) white blood count 10.6 10 4.0-10.0 Above high normal White Blood Count [facility] ([facility]) red blood count 4.71 10 4.00-5.40 Red Blood Count [facility] ([facility]) hemoglobin 14.7 g/dL 12.0-15.5 Hemoglobin [facility] ([facility]) mean corpuscular volume 95.1 fL 80.0-96.0 Mean Corpusc ular Volume [facility] ([facility]) mean corpuscular hemoglobin 31.2 pg 27.0-33.0 Mean Cor puscular Hemoglobin [facility] ([facility]) hematocrit 44.8 % 36.0-47.0 Hematocrit [facility] ([facility]) red cell distribution width 13.4 % 11.5-14.5 Red Cell Distribution Width [facility] ([facility]) mean corpuscular HGB conc 32.8 g/dL 32.0-36.5 Mean Corpu scular HGB Conc [facility] ([facility]) platelet count, automated 408 10 150-450 Platelet C ount, Automated [facility] ([facility]) lymph % 24.4 % 24.0-44.0 Lymph % [place] ([facility]) neutrophils % 65.7 % 36.0-66.0 Neutrophils % [facility] ( [facility]) eos % 1.4 % 0.0-3.0 Eos % [facility] ([facility]) baso % 0.5 % 0.0-1.0 Baso % [place] ([facility]) mono % 7.5 % 0.0-5.[address] [facility] % [place] ([facility]) nucleated red blood cell % 0.0 % 0-0 Nucleated Red Blood Cell % [facility] ([facility]) immature granulocyte % 0.5 % 0-3.0 Immature Gran ulocyte % [facility] ([facility]) lymph # 2.6 10 1.5-5.0 Lymph # [facility] ([facility]) neutrophils # 7.0 10 1.5-8.5 Neutrophils # [facility] ( [facility]) mono # 0.8 10 0.0-0.8 [facility] # [facility] ([facility]) eos # 0.2 10 0.0-0.5 Eos # [facility] ([facility]) baso # 0.1 10 0.0-0.2 Baso # [facility] ([facility]) ID Date Data Source [id number] 05/23/2020 09:00:00 AM EST [place] ([facility]) Name Value Range Interpretation Code Description Data Mora rce(s) Supporting Document(s) Hemoglobin A1c/Hemoglobin.total in Blood 6.1 % Hemoglobin a1C [facility] ([facility]) estimated average glucose 128 mg/dL 60-110 Above high norm al Estimated Average Glucose [place] ([facility]) ID Date Data Source [id number] 05/23/2020 09:00:00 AM EST [facility] ([facility]) Name Value Range Interpretation Code Description Data Mora rce(s) Supporting Document(s) cholesterol level 155 mg/dL <200 Cholesterol Level [place] ([facility]) triglycerides level 228 mg/dL <150 Above high normal Triglycer ides Level [place] ([facility]) HDL cholesterol 37 mg/dL >40 Below low normal HDL Cholestero l [place] ([facility]) non-HDL-C 118 mg/dL Non-hdl-c [facility] ([facility]) Cholesterol in LDL [Mass/volume] in Serum or Plasma 72 mg/dL <1 00 LDL Cholesterol [place] ([facility]) cholesterol risk ratio <5 Cholesterol R isk Ratio [place] ([facility]) ID Date Data Source [id number] 05/23/2020 09:00:00 AM EST [place] ([facility]) Name Value Range Interpretation Code Description Data Mora rce(s) Supporting Document(s) glucose, fasting 108 mg/dL 70-100 Above high normal Glucose, Fas ting [facility] ([facility]) blood urea nitrogen 11 mg/dL 7-18 Blood Urea Nitro gen [facility] ([facility]) glomerular filtration rate > 60.0 >58 Glomerula r Filtration Rate [facility] ([facility]) creatinine for GFR 0.72 mg/dL 0.55-1.30 Creatinine for GF R [facility] ([facility]) sodium level 139 mEq/L 136-145 Sodium Level [facility] ([facility]) potassium serum 4.4 mEq/L 3.5-5.1 Potassium Serum [facility] ([facility]) chloride level 107 mEq/L 98-107 Chloride Level [facility] ([facility]) carbon dioxide level 25 mEq/L 21-32 Carbon Dioxide Level [facility] ([facility]) calcium level 8.8 mg/dL 8.5-10.1 Calcium Level [facility] ( [facility]) AST/SGOT 9 U/L 7-37 AST/SGOT [facility] ([facility]) anion gap 7 mEq/L 8-16 Below low normal Anion Gap [facility] ( [facility]) ALT/SGPT 19 U/L 12-78 ALT/SGPT [facility] ([facility]) total protein 6.9 gm/dL 6.4-8.2 Total Protein [facility] ( [facility]) bilirubin,total 0.4 mg/dL 0.2-1.0 Bilirubin,total [facility] ([facility]) alkaline phosphatase 118 U/L 45-117 Above high normal Alkaline Phosphatase [facility] ([facility]) albumin/globulin ratio 1.2-2.2 Below low normal Albumin /globulin Ratio [facility] ([facility]) albumin 3.5 gm/dL 3.2-5.2 Albumin [facility] ([facility]) ID Date Data Source [id number] 05/23/2020 09:00:00 AM EST [facility] ([facility]) Name Value Range Interpretation Code Description Data Mora rce(s) Supporting Document(s) white blood count 10.6 10 4.0-10.0 Above high normal White Blood Count [facility] ([facility]) red blood count 4.71 10 4.00-5.40 Red Blood Count [facility] ([facility]) hemoglobin 14.7 g/dL 12.0-15.5 Hemoglobin [facility] ([facility]) hematocrit 44.8 % 36.0-47.0 Hematocrit [facility] ([facility]) mean corpuscular volume 95.1 fL 80.0-96.0 Mean Corpusc ular Volume [facility] ([facility]) mean corpuscular hemoglobin 31.2 pg 27.0-33.0 Mean Cor puscular Hemoglobin [facility] ([facility]) red cell distribution width 13.4 % 11.5-14.5 Red Cell Distribution Width [facility] ([facility]) mean corpuscular HGB conc 32.8 g/dL 32.0-36.5 Mean Corpu scular HGB Conc [facility] ([facility]) neutrophils % 65.7 % 36.0-66.0 Neutrophils % [facility] ( [facility]) platelet count, automated 408 10 150-450 Platelet C ount, Automated [facility] ([facility]) lymph % 24.4 % 24.0-44.0 Lymph % [place] ([facility]) eos % 1.4 % 0.0-3.0 Eos % [place] ([facility]) mono % 7.5 % 0.0-5.[address] [facility] % [place] ([facility]) nucleated red blood cell % 0.0 % 0-0 Nucleated Red Blood Cell % [facility] ([facility]) baso % 0.5 % 0.0-1.0 Baso % [place] ([facility]) immature granulocyte % 0.5 % 0-3.0 Immature Gran ulocyte % [place] ([facility]) neutrophils # 7.0 10 1.5-8.5 Neutrophils # [facility] ( [facility]) lymph # 2.6 10 1.5-5.0 Lymph # [facility] ([facility]) mono # 0.8 10 0.0-0.8 [facility] # [facility] ([facility]) eos # 0.2 10 0.0-0.5 Eos # [facility] ([facility]) baso # 0.1 10 0.0-0.2 Baso # [facility] ([facility]) ID Date Data Source [id number] 05/23/2020 09:00:00 AM EST [place] ([facility]) Name Value Range Interpretation Code Description Data Mora rce(s) Supporting Document(s) Hemoglobin A1c/Hemoglobin.total in Blood 6.1 % Hemoglobin a1C [facility] ([facility]) estimated average glucose 128 mg/dL 60-110 Above high norm al Estimated Average Glucose [facility] ([facility]) ID Date Data Source [id number] 05/23/2020 09:00:00 AM EST [facility] ([facility]) Name Value Range Interpretation Code Description Data Mora rce(s) Supporting Document(s) triglycerides level 228 mg/dL <150 Above high normal Triglycer ides Level [facility] ([facility]) cholesterol level 155 mg/dL <200 Cholesterol Level [facility] ([facility]) HDL cholesterol 37 mg/dL >40 Below low normal HDL Cholestero l [facility] ([facility]) non-HDL-C 118 mg/dL Non-hdl-c [facility] ([facility]) Cholesterol in LDL [Mass/volume] in Serum or Plasma 72 mg/dL <1 00 LDL Cholesterol [facility] ([facility]) cholesterol risk ratio <5 Cholesterol R isk Ratio [place] ([facility]) ID Date Data Source [id number] 05/23/2020 09:00:00 AM EST [place] ([facility]) Name Value Range Interpretation Code Description Data Mora rce(s) Supporting Document(s) glucose, fasting 108 mg/dL 70-100 Above high normal Glucose, Fas ting [facility] ([facility]) creatinine for GFR 0.72 mg/dL 0.55-1.30 Creatinine for GF R [facility] ([facility]) blood urea nitrogen 11 mg/dL 7-18 Blood Urea Nitro gen [facility] ([facility]) glomerular filtration rate > 60.0 >58 Glomerula r Filtration Rate [facility] ([facility]) potassium serum 4.4 mEq/L 3.5-5.1 Potassium Serum [facility] NA ([facility]) sodium level 139 mEq/L 136-145 Sodium Level [facility] ([facility]) chloride level 107 mEq/L 98-107 Chloride Level [facility] ([facility]) anion gap 7 mEq/L 8-16 Below low normal Anion Gap [facility] ( [facility]) carbon dioxide level 25 mEq/L 21-32 Carbon Dioxide Level [facility] ([facility]) AST/SGOT 9 U/L 7-37 AST/SGOT [facility] ([facility]) calcium level 8.8 mg/dL 8.5-10.1 Calcium Level [facility] ( [facility]) ALT/SGPT 19 U/L 12-78 ALT/SGPT [facility] ([facility]) bilirubin,total 0.4 mg/dL 0.2-1.0 Bilirubin,total [facility] NA ([facility]) total protein 6.9 gm/dL 6.4-8.2 Total Protein [facility] ( [facility]) alkaline phosphatase 118 U/L 45-117 Above high normal Alkaline Phosphatase [facility] ([facility]) albumin 3.5 gm/dL 3.2-5.2 Albumin [facility] ([facility]) albumin/globulin ratio 1.2-2.2 Below low normal Albumin /globulin Ratio [facility] ([facility]) ID Date Data Source [id number] 05/23/2020 09:00:00 AM EST [facility] ([facility]) Name Value Range Interpretation Code Description Data Mora rce(s) Supporting Document(s) white blood count 10.6 10 4.0-10.0 Above high normal White Blood Count [facility] ([facility]) red blood count 4.71 10 4.00-5.40 Red Blood Count [facility] NA ([facility]) hematocrit 44.8 % 36.0-47.0 Hematocrit [facility] ([facility]) hemoglobin 14.7 g/dL 12.0-15.5 Hemoglobin [facility] ([facility]) mean corpuscular volume 95.1 fL 80.0-96.0 Mean Corpusc ular Volume [facility] ([facility]) mean corpuscular hemoglobin 31.2 pg 27.0-33.0 Mean Cor puscular Hemoglobin [facility] ([facility]) mean corpuscular HGB conc 32.8 g/dL 32.0-36.5 Mean Corpu scular HGB Conc [facility] ([facility]) platelet count, automated 408 10 150-450 Platelet C ount, Automated [facility] ([facility]) red cell distribution width 13.4 % 11.5-14.5 Red Cell Distribution Width [facility] ([facility]) lymph % 24.4 % 24.0-44.0 Lymph % [facility] ([facility]) neutrophils % 65.7 % 36.0-66.0 Neutrophils % [facility] ( [facility]) baso % 0.5 % 0.0-1.0 Baso % [facility] ([facility]) mono % 7.5 % 0.0-5.[address] [facility] % [facility] ([facility]) eos % 1.4 % 0.0-3.0 Eos % [place] ([facility]) immature granulocyte % 0.5 % 0-3.0 Immature Gran ulocyte % [place] ([facility]) nucleated red blood cell % 0.0 % 0-0 Nucleated Red Blood Cell % [facility] ([facility]) neutrophils # 7.0 10 1.5-8.5 Neutrophils # [facility] ( [facility]) mono # 0.8 10 0.0-0.8 [facility] [place] # [facility] ([facility]) lymph # 2.6 10 1.5-5.0 Lymph # [facility] ([facility]) eos # 0.2 10 0.0-0.5 Eos # [place] ([facility]) baso # 0.1 10 0.0-0.2 Baso # [facility] ([facility]) ID Date Data Source [id number] 05/23/2020 09:00:00 AM EST [place] ([facility]) Name Value Range Interpretation Code Description Data Mora rce(s) Supporting Document(s) Hemoglobin A1c/Hemoglobin.total in Blood 6.1 % Hemoglobin a1C [facility] ([facility]) estimated average glucose 128 mg/dL 60-110 Above high norm al Estimated Average Glucose [facility] ([facility]) ID Date Data Source [id number] 05/23/2020 09:00:00 AM EST [facility] ([facility]) Name Value Range Interpretation Code Description Data Mora rce(s) Supporting Document(s) triglycerides level 228 mg/dL <150 Above high normal Triglycer ides Level [facility] ([facility]) cholesterol level 155 mg/dL <200 Cholesterol Level [facility] ([facility]) HDL cholesterol 37 mg/dL >40 Below low normal HDL Cholestero l [facility] ([facility]) Cholesterol in LDL [Mass/volume] in Serum or Plasma 72 mg/dL <1 00 LDL Cholesterol [facility] ([facility]) non-HDL-C 118 mg/dL Non-hdl-c [facility] ([facility]) cholesterol risk ratio <5 Cholesterol R isk Ratio [facility] ([facility]) ID Date Data Source [id number] 05/23/2020 09:00:00 AM EST [facility] ([facility]) Name Value Range Interpretation Code Description Data Mroa rce(s) Supporting Document(s) glucose, fasting 108 mg/dL 70-100 Above high normal Glucose, Fas ting [facility] ([facility]) blood urea nitrogen 11 mg/dL 7-18 Blood Urea Nitro gen [facility] ([facility]) sodium level 139 mEq/L 136-145 Sodium Level [facility] ([facility]) glomerular filtration rate > 60.0 >58 Glomerula r Filtration Rate [facility] ([facility]) creatinine for GFR 0.72 mg/dL 0.55-1.30 Creatinine for GF R [facility] ([facility]) carbon dioxide level 25 mEq/L 21-32 Carbon Dioxide Level [facility] ([facility]) chloride level 107 mEq/L 98-107 Chloride Level [facility] ([facility]) potassium serum 4.4 mEq/L 3.5-5.1 Potassium Serum [facility] NA ([facility]) anion gap 7 mEq/L 8-16 Below low normal Anion Gap [facility] ( [facility]) AST/SGOT 9 U/L 7-37 AST/SGOT [facility] ([facility]) calcium level 8.8 mg/dL 8.5-10.1 Calcium Level [facility] ( [facility]) bilirubin,total 0.4 mg/dL 0.2-1.0 Bilirubin,total AT[facility] NA ([facility]) ALT/SGPT 19 U/L 12-78 ALT/SGPT [facility] ([facility]) alkaline phosphatase 118 U/L 45-117 Above high normal Alkaline Phosphatase [facility] ([facility]) total protein 6.9 gm/dL 6.4-8.2 Total Protein [facility] ( [facility]) albumin/globulin ratio 1.2-2.2 Below low normal Albumin /globulin Ratio [facility] ([facility]) albumin 3.5 gm/dL 3.2-5.2 Albumin [facility] ([facility]) ID Date Data Source [id number] 05/23/2020 09:00:00 AM EST [facility] ([facility]) Name Value Range Interpretation Code Description Data Mora rce(s) Supporting Document(s) white blood count 10.6 10 4.0-10.0 Above high normal White Blood Count [facility] ([facility]) hemoglobin 14.7 g/dL 12.0-15.5 Hemoglobin [facility] ([facility]) red blood count 4.71 10 4.00-5.40 Red Blood Count AT[facility] NA ([facility]) hematocrit 44.8 % 36.0-47.0 Hematocrit [facility] ([facility]) mean corpuscular volume 95.1 fL 80.0-96.0 Mean Corpusc ular Volume [facility] ([facility]) mean corpuscular hemoglobin 31.2 pg 27.0-33.0 Mean Cor puscular Hemoglobin [facility] ([facility]) mean corpuscular HGB conc 32.8 g/dL 32.0-36.5 Mean Corpu scular HGB Conc [facility] ([facility]) red cell distribution width 13.4 % 11.5-14.5 Red Cell Distribution Width [facility] ([facility]) platelet count, automated 408 10 150-450 Platelet C ount, Automated [facility] ([facility]) lymph % 24.4 % 24.0-44.0 Lymph % [facility] ([facility]) mono % 7.5 % 0.0-5.[address] [facility] % [facility] ([facility]) neutrophils % 65.7 % 36.0-66.0 Neutrophils % [facility] ( [facility]) eos % 1.4 % 0.0-3.0 Eos % [facility] ([facility]) baso % 0.5 % 0.0-1.0 Baso % [place] ([facility]) nucleated red blood cell % 0.0 % 0-0 Nucleated Red Blood Cell % [facility] ([facility]) immature granulocyte % 0.5 % 0-3.0 Immature Gran ulocyte % [place] ([facility]) neutrophils # 7.0 10 1.5-8.5 Neutrophils # [facility] ( [facility]) eos # 0.2 10 0.0-0.5 Eos # [facility] [facility]) mono # 0.8 10 0.0-0.8 [facility] # [facility] ([facility]) lymph # 2.6 10 1.5-5.0 Lymph # [facility] ([facility]) baso # 0.1 10 0.0-0.2 Baso # [facility] ([facility]) ID Date Data Source [id number] 05/23/2020 09:00:00 AM EST [facility] ([facility]) Name Value Range Interpretation Code Description Data Mora rce(s) Supporting Document(s) estimated average glucose 128 mg/dL 60-110 Above high norm al Estimated Average Glucose [place] ([facility]) Hemoglobin A1c/Hemoglobin.total in Blood 6.1 % Hemoglobin a1C [place] ([facility]) ID Date Data Source [id number] 05/23/2020 09:00:00 AM EST [place] ([facility]) Name Value Range Interpretation Code Description Data Mora rce(s) Supporting Document(s) triglycerides level 228 mg/dL <150 Above high normal Triglycer ides Level [facility] ([facility]) cholesterol level 155 mg/dL <200 Cholesterol Level [facility] ([facility]) HDL cholesterol 37 mg/dL >40 Below low normal HDL Cholestero l [facility] ([facility]) Cholesterol in LDL [Mass/volume] in Serum or Plasma 72 mg/dL <1 00 LDL Cholesterol [facility] ([facility]) non-HDL-C 118 mg/dL Non-hdl-c [facility] ([facility]) cholesterol risk ratio <5 Cholesterol R isk Ratio [facility] ([facility]) ID Date Data Source [id number] 05/23/2020 09:00:00 AM EST [facility] ([facility]) Name Value Range Interpretation Code Description Data Mora rce(s) Supporting Document(s) glucose, fasting 108 mg/dL 70-100 Above high normal Glucose, Fas ting [facility] ([facility]) glomerular filtration rate > 60.0 >58 Glomerula r Filtration Rate [facility] ([facility]) creatinine for GFR 0.72 mg/dL 0.55-1.30 Creatinine for GF R [facility] ([facility]) blood urea nitrogen 11 mg/dL 7-18 Blood Urea Nitro gen [facility] ([facility]) potassium serum 4.4 mEq/L 3.5-5.1 Potassium Serum [facility] NA ([facility]) sodium level 139 mEq/L 136-145 Sodium Level [facility] ([facility]) anion gap 7 mEq/L 8-16 Below low normal Anion Gap [facility] ( [facility]) carbon dioxide level 25 mEq/L 21-32 Carbon Dioxide Level [facility] ([facility]) chloride level 107 mEq/L 98-107 Chloride Level [facility] ([facility]) calcium level 8.8 mg/dL 8.5-10.1 Calcium Level [facility] ( [facility]) AST/SGOT 9 U/L 7-37 AST/SGOT [facility] ([facility]) alkaline phosphatase 118 U/L 45-117 Above high normal Alkaline Phosphatase [facility] ([facility]) ALT/SGPT 19 U/L 12-78 ALT/SGPT [facility] ([facility]) bilirubin,total 0.4 mg/dL 0.2-1.0 Bilirubin,total ATHE NA ([facility]) total protein 6.9 gm/dL 6.4-8.2 Total Protein [facility] ( [facility]) albumin 3.5 gm/dL 3.2-5.2 Albumin [facility] ([facility]) albumin/globulin ratio 1.2-2.2 Below low normal Albumin /globulin Ratio [facility] ([facility]) ID Date Data Source [id number] 05/23/2020 09:00:00 AM EST [facility] ([facility]) Name Value Range Interpretation Code Description Data Mora rce(s) Supporting Document(s) white blood count 10.6 10 4.0-10.0 Above high normal White Blood Count [facility] ([facility]) red blood count 4.71 10 4.00-5.40 Red Blood Count [facility] ([facility]) hemoglobin 14.7 g/dL 12.0-15.5 Hemoglobin [facility] ([facility]) hematocrit 44.8 % 36.0-47.0 Hematocrit [facility] ([facility]) mean corpuscular hemoglobin 31.2 pg 27.0-33.0 Mean Cor puscular Hemoglobin [facility] ([facility]) mean corpuscular volume 95.1 fL 80.0-96.0 Mean Corpusc ular Volume [facility] ([facility]) red cell distribution width 13.4 % 11.5-14.5 Red Cell Distribution Width [facility] ([facility]) mean corpuscular HGB conc 32.8 g/dL 32.0-36.5 Mean Corpu scular HGB Conc [facility] ([facility]) platelet count, automated 408 10 150-450 Platelet C ount, Automated [facility] ([facility]) neutrophils % 65.7 % 36.0-66.0 Neutrophils % [facility] ( [facility]) lymph % 24.4 % 24.0-44.0 Lymph % [facility] ([facility]) mono % 7.5 % 0.0-5.[address] [facility] % [facility] ([facility]) baso % 0.5 % 0.0-1.0 Baso % [facility] ([facility]) eos % 1.4 % 0.0-3.0 Eos % [facility] ([facility]) immature granulocyte % 0.5 % 0-3.0 Immature Gran ulocyte % [facility] ([facility]) nucleated red blood cell % 0.0 % 0-0 Nucleated Red Blood Cell % [facility] ([facility]) lymph # 2.6 10 1.5-5.0 Lymph # [facility] ([facility]) neutrophils # 7.0 10 1.5-8.5 Neutrophils # [facility] ( [facility]) eos # 0.2 10 0.0-0.5 Eos # [facility] ([facility]) baso # 0.1 10 0.0-0.2 Baso # [facility] ([facility]) mono # 0.8 10 0.0-0.8 [facility] # [facility] ([facility]) ID Date Data Source [id number] 05/23/2020 09:00:00 AM EST [facility] ([facility]) Name Value Range Interpretation Code Description Data Mora rce(s) Supporting Document(s) Hemoglobin A1c/Hemoglobin.total in Blood 6.1 % Hemoglobin a1C [facility] ([facility]) estimated average glucose 128 mg/dL 60-110 Above high norm al Estimated Average Glucose [facility] ([facility]) ID Date Data Source [id number] 05/23/2020 09:00:00 AM EST [place] ([facility]) Name Value Range Interpretation Code Description Data Mora rce(s) Supporting Document(s) triglycerides level 228 mg/dL <150 Above high normal Triglycer ides Level [facility] ([facility]) cholesterol level 155 mg/dL <200 Cholesterol Level [facility] ([facility]) Cholesterol in LDL [Mass/volume] in Serum or Plasma 72 mg/dL <1 00 LDL Cholesterol [facility] ([facility]) HDL cholesterol 37 mg/dL >40 Below low normal HDL Cholestero l [facility] ([facility]) cholesterol risk ratio <5 Cholesterol R isk Ratio [facility] ([facility]) non-HDL-C 118 mg/dL Non-hdl-c [facility] ([facility]) ID Date Data Source [id number] 05/23/2020 09:00:00 AM EST [facility] ([facility]) Name Value Range Interpretation Code Description Data Mora rce(s) Supporting Document(s) blood urea nitrogen 11 mg/dL 7-18 Blood Urea Nitro gen [facility] ([facility]) glucose, fasting 108 mg/dL 70-100 Above high normal Glucose, Fas ting [facility] ([facility]) creatinine for GFR 0.72 mg/dL 0.55-1.30 Creatinine for GF R [facility] ([facility]) glomerular filtration rate > 60.0 >58 Glomerula r Filtration Rate [facility] ([facility]) sodium level 139 mEq/L 136-145 Sodium Level [facility] ([facility]) potassium serum 4.4 mEq/L 3.5-5.1 Potassium Serum [facility] ([facility]) carbon dioxide level 25 mEq/L 21-32 Carbon Dioxide Level [facility] ([facility]) anion gap 7 mEq/L 8-16 Below low normal Anion Gap [facility] ( [facility]) chloride level 107 mEq/L 98-107 Chloride Level [facility] ([facility]) ALT/SGPT 19 U/L 12-78 ALT/SGPT [facility] ([facility]) calcium level 8.8 mg/dL 8.5-10.1 Calcium Level [facility] ( [facility]) AST/SGOT 9 U/L 7-37 AST/SGOT [facility] ([facility]) alkaline phosphatase 118 U/L 45-117 Above high normal Alkaline Phosphatase [facility] ([facility]) bilirubin,total 0.4 mg/dL 0.2-1.0 Bilirubin,total [facility] ([facility]) total protein 6.9 gm/dL 6.4-8.2 Total Protein [facility] ( [facility]) albumin/globulin ratio 1.2-2.2 Below low normal Albumin /globulin Ratio [facility] ([facility]) albumin 3.5 gm/dL 3.2-5.2 Albumin [facility] ([facility]) ID Date Data Source [id number] 05/23/2020 09:00:00 AM EST [facility] ([facility]) Name Value Range Interpretation Code Description Data Mora rce(s) Supporting Document(s) red blood count 4.71 10 4.00-5.40 Red Blood Count [facility] ([facility]) white blood count 10.6 10 4.0-10.0 Above high normal White Blood Count [facility] ([facility]) hemoglobin 14.7 g/dL 12.0-15.5 Hemoglobin [facility] ([facility]) hematocrit 44.8 % 36.0-47.0 Hematocrit [facility] ([facility]) mean corpuscular hemoglobin 31.2 pg 27.0-33.0 Mean Cor puscular Hemoglobin [facility] ([facility]) mean corpuscular volume 95.1 fL 80.0-96.0 Mean Corpusc ular Volume [facility] ([facility]) mean corpuscular HGB conc 32.8 g/dL 32.0-36.5 Mean Corpu scular HGB Conc [facility] ([facility]) red cell distribution width 13.4 % 11.5-14.5 Red Cell Distribution Width [facility] ([facility]) platelet count, automated 408 10 150-450 Platelet C ount, Automated [facility] ([facility]) neutrophils % 65.7 % 36.0-66.0 Neutrophils % [facility] ( [facility]) lymph % 24.4 % 24.0-44.0 Lymph % [facility] ([facility]) mono % 7.5 % 0.0-5.[address] [facility] % [facility] ([facility]) baso % 0.5 % 0.0-1.0 Baso % [facility] ([facility]) eos % 1.4 % 0.0-3.0 Eos % [place] ([facility]) neutrophils # 7.0 10 1.5-8.5 Neutrophils # [place] ( [facility]) immature granulocyte % 0.5 % 0-3.0 Immature Gran ulocyte % [place] ([facility]) nucleated red blood cell % 0.0 % 0-0 Nucleated Red Blood Cell % [place] ([facility]) lymph # 2.6 10 1.5-5.0 Lymph # [facility] ([facility]) eos # 0.2 10 0.0-0.5 Eos # [facility] ([facility]) mono # 0.8 10 0.0-0.8 [facility] # [facility] ([facility]) baso # 0.1 10 0.0-0.2 Baso # [facility] ([facility]) ID Date Data Source [id number] 05/03/2020 09:48:00 AM EST [facility] Name Value Range Interpretation Code Description Data Mora rce(s) Supporting Document(s) SARS coronavirus 2 RdRp gene [Presence] in Respiratory specimen by ISSA with probe detection [facility] This lab was ordered by [facility] and reported by [facility]. ID Date Data Source [id number] 05/03/2020 09:43:00 AM EST [place] ([facility]) Name Value Range Interpretation Code Description Data Mora rce(s) Supporting Document(s) sars-cov-2 negative negative Sars-cov-2 [place] ([facility]) ID Date Data Source [id number] 05/03/2020 09:43:00 AM EST [place] ([facility]) Name Value Range Interpretation Code Description Data Mora rce(s) Supporting Document(s) sars-cov-2 negative negative Sars-cov-2 [facility]) ID Date Data Source [id number] 05/03/2020 09:43:00 AM EST [place] ([facility]) Name Value Range Interpretation Code Description Data Mora rce(s) Supporting Document(s) sars-cov-2 negative negative Sars-cov-2 [facility] ([facility]) ID Date Data Source [id number] 05/03/2020 09:43:00 AM EST [place] ([facility]) Name Value Range Interpretation Code Description Data Mora rce(s) Supporting Document(s) sars-cov-2 negative negative Sars-cov-2 [facility] ([facility]) ID Date Data Source [id number] 05/03/2020 09:43:00 AM EST [facility]) Name Value Range Interpretation Code Description Data Mora rce(s) Supporting Document(s) sars-cov-2 negative negative Sars-cov-2 [place] ([facility]) ID Date Data Source [id number] 05/03/2020 09:43:00 AM EST [facility]) Name Value Range Interpretation Code Description Data Mora rce(s) Supporting Document(s) sars-cov-2 negative negative Sars-cov-2 [facility] ([facility]) ID Date Data Source [id number] 05/03/2020 09:43:00 AM EST [facility]) Name Value Range Interpretation Code Description Data Mora rce(s) Supporting Document(s) sars-cov-2 negative negative Sars-cov-2 [facility] ([facility]) ID Date Data Source [id number] 05/03/2020 09:43:00 AM [facility] Name Value Range Interpretation Code Description Data Mora rce(s) Supporting Document(s) sars-cov-2 negative negative Sars-cov-2 [facility]) ID Date Data Source [id number] 05/03/2020 09:43:00 AM EST [facility] ([facility]) Name Value Range Interpretation Code Description Data Mora rce(s) Supporting Document(s) sars-cov-2 negative negative Sars-cov-2 [place] ([facility]) ID Date Data Source [id number] 05/03/2020 09:43:00 AM EST [facility] ([facility]) Name Value Range Interpretation Code Description Data Mora rce(s) Supporting Document(s) sars-cov-2 negative negative Sars-cov-2 [place] ([facility]) ID Date Data Source [id number] 05/03/2020 09:43:00 AM EST [facility] ([facility]) Name Value Range Interpretation Code Description Data Mora rce(s) Supporting Document(s) sars-cov-2 negative negative Sars-cov-2 [place] ([facility]) ID Date Data Source [id number] 03/21/2020 10:30:00 AM EST [facility] ([facility]) Name Value Range Interpretation Code Description Data Mora rce(s) Supporting Document(s) Coronavirus 2019 Nasopharygeal Laboratory test result [facility] ([facility]) This nucleic acid amplification test was developed and its performance characteristics determined by [facility]. Nucleic acid amplification tests include PCR and TMA. This test has not been FDA cleared or approved. This test has been authorized by FDA under an Emergency Use Authorization (EUA). This test is only authorized for the duration of time the declaration that circumstances exist justifying the authorization of the emergency use of in vitro diagnostic tests for detection of SARS-CoV-2 virus and/or diagnosis of COVID-19 infection under section 564(b)(1) of the Act, 21 U.S.C. 360bbb-3 (b) (1), unless the authorization is terminated or revoked sooner. When diagnostic testing is negative, the possibility of a false negative result should be considered in the context of a patient's recent exposures and the presence of clinical signs and symptoms consistent with COVID-19. An individual without symptoms of COVID-19 and who is not shedding SARS-CoV-2 virus would expect to have a negative (not detected) result in this assay. Performed at: [facility] [address] [place] [address], [place] [id number] [employer] Micro[employer]ist: Snow Melendrez PhD, Phone: [phone] Not Detected ID Date Data Source [id number] 03/21/2020 10:30:00 AM EST [facility] Name Value Range Interpretation Code Description Data Mora rce(s) Supporting Document(s) SARS coronavirus 2 RNA [facility] This lab was ordered by [facility] and reported by [facility]. ID Date Data Source [id number] 02/23/2020 10:48:00 AM EDT [facility] ([facility]) Name Value Range Interpretation Code Description Data Mora rce(s) Supporting Document(s) Prothrombin time (PT) 28.8 s 24.2-38.5 [facility] ([facility]) ID Date Data Source [id number] 02/23/2020 10:48:00 AM EDT [facility] ([facility]) Name Value Range Interpretation Code Description Data Mora rce(s) Supporting Document(s) Inr 0.89 [facility] ([facility]) THERAPUTIC HUMAN INR VALUES INDICATIONS NORMAL RANGES PROPHYLAXIS/TREATMENT OF: VENOUS THROMBOSIS 2.0-3.0 PULMONARY EMBOLISM 2.0-3.0 PREVENTION OF SYSTEMIC EMBOLISM FROM: TISSUE HEART VALVES 2.0-3.0 ACUTE MYOCARDIAL INFARCTION 2.0-3.0 VALVULAR HEART DISEASE 2.0-3.0 ATRIAL FIBRILLATION 2.0-3.0 MECHANICAL VALVES(HIGH RISK) 2.5-3.5 RECURRENT MYOCARDIAL INFARCTION 2.5-3.5 Prothrombin Time 12.2 s 12.5-14.3 [facility] ([facility]) ID Date Data Source [id number] 02/23/2020 09:16:00 AM EDT [facility] ([facility]) Name Value Range Interpretation Code Description Data Mora rce(s) Supporting Document(s) Platelets [#/volume] in Blood by Automated count 336 10 150-450 [facility] ([facility]) Prothrombin time (PT) Laboratory test result [facility] ([facility]) ID Date Data Source [id number] 02/23/2020 08:53:00 AM EDT [facility] ([facility]) Name Value Range Interpretation Code Description Data Mora rce(s) Supporting Document(s) Triglycerides 197 [facility] ([facility]) Cholesterol in LDL [Mass/volume] in Serum or Plasma by calculation 77 [facility] ([facility]) Chol/HDL Ratio 4.411 [facility] ([facility]) Cholesterol 150 [facility] ([facility]) HDL 34 [facility] ID Date Data Source [id number] 02/23/2020 08:53:00 AM EDT [facility] ([facility]) Name Value Range Interpretation Code Description Data Mora rce(s) Supporting Document(s) Hemoglobin 14.9 12.0-15.5 [facility] ([facility]) Platelets 390 150-450 [facility] White Blood Count 10.6 4.0-10.0 [facility] ([facility]) Red Blood Count 4.79 4.00-5.40 [facility] ([facility]) Hematocrit 46.0 36.0-47.0 [facility] ([facility]) ID Date Data Source [id number] 02/23/2020 08:53:00 AM EDT [facility] Name Value Range Interpretation Code Description Data Mora rce(s) Supporting Document(s) Hemoglobin A1c/Hemoglobin.total in Blood 6.0 [facility] ([facility]) ID Date Data Source [id number] 02/23/2020 08:53:00 AM EDT [facility] Name Value Range Interpretation Code Description Data Mora rce(s) Supporting Document(s) Albumin [Mass/volume] in Serum or Plasma 3.5 [facility] ([facility]) Alanine aminotransferase [Enzymatic activity/volume] in Serum or Pl asma 20 [facility] ([facility]) Calcium [Mass/volume] in Serum or Plasma 9.0 [facility] ([facility]) Carbon dioxide, total [Moles/volume] in Serum or Plasma 24 [facility] ([facility]) Chloride [Moles/volume] in Serum or Plasma 108 [facility] ([facility]) Potassium [Moles/volume] in Serum or Plasma 4.5 [facility] ([facility]) Alkaline phosphatase [Enzymatic activity/volume] in Serum or Plasma 1 28 [facility] ([facility]) Urea nitrogen [Mass/volume] in Serum or Plasma 11 [facility] ([facility]) Sodium 140 [facility] ([facility]) Protein [Mass/volume] in Serum or Plasma 7.0 [facility] ([facility]) Aspartate aminotransferase [Enzymatic activity/volume] in Serum or Plasma 9 [facility] ([facility] Glucose 96 70-100 [facility] ([facility]) Creatinine For GFR 0.74 [facility] ([facility]) ID Date Data Source [id number] 02/23/2020 08:15:00 AM EDT [facility]) Name Value Range Interpretation Code Description Data Mora rce(s) Supporting Document(s) estimated average glucose 126 mg/dL 60-110 Above high norm al Estimated Average Glucose [facility]) Hemoglobin A1c/Hemoglobin.total in Blood 6.0 % Hemoglobin a1C [facility]) ID Date Data Source [id number] 02/23/2020 08:15:00 AM EDT [facility]) Name Value Range Interpretation Code Description Data Mora rce(s) Supporting Document(s) total 25(oh) vitamin D 27.8 NG/mL 30.0-100.0 Below low normal T otal 25(Oh) Vitamin D [facility]) ID Date Data Source [id number] 02/23/2020 08:15:00 AM EDT [facility]) Name Value Range Interpretation Code Description Data Mora rce(s) Supporting Document(s) HDL cholesterol 34 mg/dL >40 Below low normal HDL Cholestero l [facility] ([facility]) cholesterol level 150 mg/dL <200 Cholesterol Level [facility] ([facility]) triglycerides level 197 mg/dL <150 Above high normal Triglycer ides Level [place] ([facility]) non-HDL-C 116 mg/dL Non-hdl-c [facility] ([facility]) cholesterol risk ratio <5 Cholesterol R isk Ratio [facility] ([facility]) Cholesterol in LDL [Mass/volume] in Serum or Plasma 77 mg/dL <1 00 LDL Cholesterol [facility] ([facility]) ID Date Data Source [id number] 02/23/2020 08:15:00 AM EDT [facility] ([facility]) Name Value Range Interpretation Code Description Data Mora rce(s) Supporting Document(s) glucose, fasting 96 mg/dL 70-100 Glucose, Fasting AT [facility] ([facility]) blood urea nitrogen 11 mg/dL 7-18 Blood Urea Nitro gen [facility] ([facility]) glomerular filtration rate > 60.0 >58 Glomerula r Filtration Rate [facility] ([facility]) creatinine for GFR 0.74 mg/dL 0.55-1.30 Creatinine for GF R [facility] ([facility]) chloride level 108 mEq/L 98-107 Above high normal Chloride Level [facility] ([facility]) sodium level 140 mEq/L 136-145 Sodium Level [facility] ([facility]) carbon dioxide level 24 mEq/L 21-32 Carbon Dioxide Level [facility] ([facility]) potassium serum 4.5 mEq/L 3.5-5.1 Potassium Serum AT[facility] ([facility]) AST/SGOT 9 U/L 7-37 AST/SGOT [facility] ([facility]) ALT/SGPT 20 U/L 12-78 ALT/SGPT [facility] ([facility]) anion gap 8 mEq/L 8-16 Anion Gap [facility] ([facility]) calcium level 9.0 mg/dL 8.5-10.1 Calcium Level [facility] ( [facility]) alkaline phosphatase 128 U/L 45-117 Above high normal Alkaline Phosphatase [facility] ([facility]) bilirubin,total 0.4 mg/dL 0.2-1.0 Bilirubin,total ATHE NA ([facility]) total protein 7.0 gm/dL 6.4-8.2 Total Protein [facility] ( [facility]) albumin 3.5 gm/dL 3.2-5.2 Albumin [facility] ([facility]) albumin/globulin ratio 1.2-2.2 Below low normal Albumin /globulin Ratio [facility] ([facility]) ID Date Data Source [id number] 02/23/2020 08:15:00 AM EDT [facility] ([facility]) Name Value Range Interpretation Code Description Data Mora rce(s) Supporting Document(s) white blood count 10.6 10 4.0-10.0 Above high normal White Blood Count [facility] ([facility]) red blood count 4.79 10 4.00-5.40 Red Blood Count AT[facility] ([facility]) hemoglobin 14.9 g/dL 12.0-15.5 Hemoglobin [facility] ([facility]) hematocrit 46.0 % 36.0-47.0 Hematocrit [facility] ([facility]) mean corpuscular volume 96.0 fL 80.0-96.0 Mean Corpusc ular Volume [facility] ([facility]) red cell distribution width 13.7 % 11.5-14.5 Red Cell Distribution Width [facility] ([facility]) mean corpuscular hemoglobin 31.1 pg 27.0-33.0 Mean Cor puscular Hemoglobin [facility] ([facility]) mean corpuscular HGB conc 32.4 g/dL 32.0-36.5 Mean Corpu scular HGB Conc [facility] ([facility]) neutrophils % 62.1 % 36.0-66.0 Neutrophils % [facility] ( [facility]) lymph % 27.1 % 24.0-44.0 Lymph % [facility] ([facility]) platelet count, automated 390 10 150-450 Platelet C ount, Automated [facility] ([facility]) immature granulocyte % 0.6 % 0-3.0 Immature Gran ulocyte % [facility] ([facility]) eos % 2.1 % 0.0-3.0 Eos % [facility] ([facility]) mono % 7.5 % 0.0-5.[address] [facility] % [facility] ([facility]) baso % 0.6 % 0.0-1.0 Baso % [facility] ([facility]) nucleated red blood cell % 0.0 % 0-0 Nucleated Red Blood Cell % [facility] ([facility]) lymph # 2.9 10 1.5-5.0 Lymph # [facility] ([facility]) neutrophils # 6.6 10 1.5-8.5 Neutrophils # [facility] ( [facility]) eos # 0.2 10 0.0-0.5 Eos # [facility] ([facility]) baso # 0.1 10 0.0-0.2 Baso # [facility] ([facility]) mono # 0.8 10 0.0-0.8 [facility] [place] # [facility] ([facility]) ID Date Data Source [id number] 02/23/2020 08:15:00 AM EDT [place] ([facility]) Name Value Range Interpretation Code Description Data Mora rce(s) Supporting Document(s) Hemoglobin A1c/Hemoglobin.total in Blood 6.0 % Hemoglobin a1C [facility] ([facility]) estimated average glucose 126 mg/dL 60-110 Above high norm al Estimated Average Glucose [place] ([facility]) ID Date Data Source [id number] 02/23/2020 08:15:00 AM EDT [facility] ([facility]) Name Value Range Interpretation Code Description Data Mora rce(s) Supporting Document(s) total 25(oh) vitamin D 27.8 NG/mL 30.0-100.0 Below low normal T otal 25(Oh) Vitamin D [facility] ([facility]) ID Date Data Source [id number] 02/23/2020 08:15:00 AM EDT [facility]) Name Value Range Interpretation Code Description Data Mora rce(s) Supporting Document(s) triglycerides level 197 mg/dL <150 Above high normal Triglycer ides Level [facility] ([facility]) Cholesterol in LDL [Mass/volume] in Serum or Plasma 77 mg/dL <1 00 LDL Cholesterol [facility] ([facility]) HDL cholesterol 34 mg/dL >40 Below low normal HDL Cholestero l [facility] ([facility]) cholesterol level 150 mg/dL <200 Cholesterol Level [facility] ([facility]) cholesterol risk ratio <5 Cholesterol R isk Ratio [facility] ([facility]) non-HDL-C 116 mg/dL Non-hdl-c [facility] ([facility]) ID Date Data Source [id number] 02/23/2020 08:15:00 AM EDT [facility] ([facility]) Name Value Range Interpretation Code Description Data Mora rce(s) Supporting Document(s) creatinine for GFR 0.74 mg/dL 0.55-1.30 Creatinine for GF R [facility] ([facility]) glomerular filtration rate > 60.0 >58 Glomerula r Filtration Rate [facility] ([facility]) blood urea nitrogen 11 mg/dL 7-18 Blood Urea Nitro gen [facility] ([facility]) glucose, fasting 96 mg/dL 70-100 Glucose, Fasting AT [facility]) potassium serum 4.5 mEq/L 3.5-5.1 Potassium Serum ATHE NA ([facility]) chloride level 108 mEq/L 98-107 Above high normal Chloride Level [facility] ([facility]) sodium level 140 mEq/L 136-145 Sodium Level [facility] ([facility]) anion gap 8 mEq/L 8-16 Anion Gap [facility] ([facility]) ALT/SGPT 20 U/L 12-78 ALT/SGPT [facility] ([facility]) AST/SGOT 9 U/L 7-37 AST/SGOT [facility] ([facility]) calcium level 9.0 mg/dL 8.5-10.1 Calcium Level [facility] ( [facility]) carbon dioxide level 24 mEq/L 21-32 Carbon Dioxide Level [facility] ([facility]) alkaline phosphatase 128 U/L 45-117 Above high normal Alkaline Phosphatase [facility] ([facility]) bilirubin,total 0.4 mg/dL 0.2-1.0 Bilirubin,total ATHE NA ([facility]) total protein 7.0 gm/dL 6.4-8.2 Total Protein [facility] ( [facility]) albumin 3.5 gm/dL 3.2-5.2 Albumin [facility] ([facility]) albumin/globulin ratio 1.2-2.2 Below low normal Albumin /globulin Ratio [facility] ([facility]) ID Date Data Source [id number] 02/23/2020 08:15:00 AM EDT [facility] ([facility]) Name Value Range Interpretation Code Description Data Mora rce(s) Supporting Document(s) white blood count 10.6 10 4.0-10.0 Above high normal White Blood Count [facility] ([facility]) hematocrit 46.0 % 36.0-47.0 Hematocrit [facility] ([facility]) hemoglobin 14.9 g/dL 12.0-15.5 Hemoglobin [facility] ([facility]) red blood count 4.79 10 4.00-5.40 Red Blood Count [facility] ([facility]) mean corpuscular hemoglobin 31.1 pg 27.0-33.0 Mean Cor puscular Hemoglobin [facility] ([facility]) mean corpuscular volume 96.0 fL 80.0-96.0 Mean Corpusc ular Volume [facility] ([facility]) platelet count, automated 390 10 150-450 Platelet C ount, Automated [facility] ([facility]) red cell distribution width 13.7 % 11.5-14.5 Red Cell Distribution Width [facility] ([facility]) mean corpuscular HGB conc 32.4 g/dL 32.0-36.5 Mean Corpu scular HGB Conc [facility] ([facility]) mono % 7.5 % 0.0-5.[address] [facility] % [facility] ([facility]) neutrophils % 62.1 % 36.0-66.0 Neutrophils % [facility] ( [facility]) lymph % 27.1 % 24.0-44.0 Lymph % [facility] ([facility]) immature granulocyte % 0.6 % 0-3.0 Immature Gran ulocyte % [facility] ([facility]) nucleated red blood cell % 0.0 % 0-0 Nucleated Red Blood Cell % [facility] ([facility]) baso % 0.6 % 0.0-1.0 Baso % [facility] ([facility]) eos % 2.1 % 0.0-3.0 Eos % [facility] ([facility]) neutrophils # 6.6 10 1.5-8.5 Neutrophils # [facility] ( [facility]) mono # 0.8 10 0.0-0.8 [facility] [place] # [facility] ([facility]) lymph # 2.9 10 1.5-5.0 Lymph # [facility] ([facility]) eos # 0.2 10 0.0-0.5 Eos # [facility] ([facility]) baso # 0.1 10 0.0-0.2 Baso # [facility] ([facility]) ID Date Data Source [id number] 02/23/2020 08:15:00 AM EDT [facility] ([facility]) Name Value Range Interpretation Code Description Data Mora rce(s) Supporting Document(s) Hemoglobin A1c/Hemoglobin.total in Blood 6.0 % Hemoglobin a1C [place] ([facility]) estimated average glucose 126 mg/dL 60-110 Above high norm al Estimated Average Glucose [place] ([facility]) ID Date Data Source [id number] 02/23/2020 08:15:00 AM EDT [place] ([facility]) Name Value Range Interpretation Code Description Data Mora rce(s) Supporting Document(s) total 25(oh) vitamin D 27.8 NG/mL 30.0-100.0 Below low normal T otal 25(Oh) Vitamin D [place] ([facility]) ID Date Data Source [id number] 02/23/2020 08:15:00 AM EDT [facility] ([facility]) Name Value Range Interpretation Code Description Data Mora rce(s) Supporting Document(s) triglycerides level 197 mg/dL <150 Above high normal Triglycer ides Level [facility] ([facility]) HDL cholesterol 34 mg/dL >40 Below low normal HDL Cholestero l [facility] ([facility]) cholesterol level 150 mg/dL <200 Cholesterol Level [facility] ([facility]) cholesterol risk ratio <5 Cholesterol R isk Ratio [facility] ([facility]) Cholesterol in LDL [Mass/volume] in Serum or Plasma 77 mg/dL <1 00 LDL Cholesterol [facility] ([facility]) non-HDL-C 116 mg/dL Non-hdl-c [facility] ([facility]) ID Date Data Source [id number] 02/23/2020 08:15:00 AM EDT [facility]) Name Value Range Interpretation Code Description Data Mora rce(s) Supporting Document(s) glucose, fasting 96 mg/dL 70-100 Glucose, Fasting AT [facility]) blood urea nitrogen 11 mg/dL 7-18 Blood Urea Nitro gen [facility] ([facility]) creatinine for GFR 0.74 mg/dL 0.55-1.30 Creatinine for GF R [facility] ([facility]) potassium serum 4.5 mEq/L 3.5-5.1 Potassium Serum A[facility] NA ([facility]) sodium level 140 mEq/L 136-145 Sodium Level [facility] ([facility]) glomerular filtration rate > 60.0 >58 Glomerula r Filtration Rate [facility] ([facility]) anion gap 8 mEq/L 8-16 Anion Gap [facility] ([facility]) chloride level 108 mEq/L 98-107 Above high normal Chloride Level [facility] ([facility]) calcium level 9.0 mg/dL 8.5-10.1 Calcium Level [facility] ( [facility]) carbon dioxide level 24 mEq/L 21-32 Carbon Dioxide Level [facility] ([facility]) AST/SGOT 9 U/L 7-37 AST/SGOT [facility] ([facility]) ALT/SGPT 20 U/L 12-78 ALT/SGPT [facility] ([facility]) bilirubin,total 0.4 mg/dL 0.2-1.0 Bilirubin,total ATHE NA ([facility]) alkaline phosphatase 128 U/L 45-117 Above high normal Alkaline Phosphatase [facility] ([facility]) albumin 3.5 gm/dL 3.2-5.2 Albumin [facility] ([facility]) albumin/globulin ratio 1.2-2.2 Below low normal Albumin /globulin Ratio [facility] ([facility]) total protein 7.0 gm/dL 6.4-8.2 Total Protein [facility] ( [facility]) ID Date Data Source [id number] 02/23/2020 08:15:00 AM EDT [place] ([facility]) Name Value Range Interpretation Code Description Data Mora rce(s) Supporting Document(s) white blood count 10.6 10 4.0-10.0 Above high normal White Blood Count [facility] ([facility]) hemoglobin 14.9 g/dL 12.0-15.5 Hemoglobin [facility] ([facility]) red blood count 4.79 10 4.00-5.40 Red Blood Count [facility] ([facility]) mean corpuscular volume 96.0 fL 80.0-96.0 Mean Corpusc ular Volume [facility] ([facility]) mean corpuscular HGB conc 32.4 g/dL 32.0-36.5 Mean Corpu scular HGB Conc [facility] ([facility]) mean corpuscular hemoglobin 31.1 pg 27.0-33.0 Mean Cor puscular Hemoglobin [facility] ([facility]) hematocrit 46.0 % 36.0-47.0 Hematocrit [facility] ([facility]) neutrophils % 62.1 % 36.0-66.0 Neutrophils % [facility] ( [facility]) red cell distribution width 13.7 % 11.5-14.5 Red Cell Distribution Width [facility] ([facility]) platelet count, automated 390 10 150-450 Platelet C ount, Automated [facility] ([facility]) lymph % 27.1 % 24.0-44.0 Lymph % [facility] ([facility]) mono % 7.5 % 0.0-5.[address] [facility] % [facility] ([facility]) eos % 2.1 % 0.0-3.0 Eos % [facility] ([facility]) immature granulocyte % 0.6 % 0-3.0 Immature Gran ulocyte % [facility] ([facility]) baso % 0.6 % 0.0-1.0 Baso % [facility] ([facility]) nucleated red blood cell % 0.0 % 0-0 Nucleated Red Blood Cell % [facility] ([facility]) neutrophils # 6.6 10 1.5-8.5 Neutrophils # [facility] ( [facility]) mono # 0.8 10 0.0-0.8 [facility] [place] # [facility] ([facility]) lymph # 2.9 10 1.5-5.0 Lymph # [facility] ([facility]) eos # 0.2 10 0.0-0.5 Eos # [facility] ([facility]) baso # 0.1 10 0.0-0.2 Baso # [facility] ([facility]) ID Date Data Source [id number] 02/23/2020 08:15:00 AM EDT [place] ([facility]) Name Value Range Interpretation Code Description Data Mora rce(s) Supporting Document(s) Hemoglobin A1c/Hemoglobin.total in Blood 6.0 % Hemoglobin a1C [facility] ([facility]) estimated average glucose 126 mg/dL 60-110 Above high norm al Estimated Average Glucose [place] ([facility]) ID Date Data Source [id number] 02/23/2020 08:15:00 AM EDT [place] ([facility]) Name Value Range Interpretation Code Description Data Mora rce(s) Supporting Document(s) total 25(oh) vitamin D 27.8 NG/mL 30.0-100.0 Below low normal T otal 25(Oh) Vitamin D [facility] ([facility]) ID Date Data Source [id number] 02/23/2020 08:15:00 AM EDT [place] ([facility]) Name Value Range Interpretation Code Description Data Mora rce(s) Supporting Document(s) HDL cholesterol 34 mg/dL >40 Below low normal HDL Cholestero l [facility] ([facility]) cholesterol level 150 mg/dL <200 Cholesterol Level [facility] ([facility]) triglycerides level 197 mg/dL <150 Above high normal Triglycer ides Level [facility] ([facility]) Cholesterol in LDL [Mass/volume] in Serum or Plasma 77 mg/dL <1 00 LDL Cholesterol [facility] ([facility]) non-HDL-C 116 mg/dL Non-hdl-c [facility] ([facility]) cholesterol risk ratio <5 Cholesterol R isk Ratio [facility] ([facility]) ID Date Data Source [id number] 02/23/2020 08:15:00 AM EDT [facility] ([facility]) Name Value Range Interpretation Code Description Data Mora rce(s) Supporting Document(s) blood urea nitrogen 11 mg/dL 7-18 Blood Urea Nitro gen [facility] ([facility]) creatinine for GFR 0.74 mg/dL 0.55-1.30 Creatinine for GF R [facility] ([facility]) glucose, fasting 96 mg/dL 70-100 Glucose, Fasting [place] ([facility]) sodium level 140 mEq/L 136-145 Sodium Level [facility] ([facility]) chloride level 108 mEq/L 98-107 Above high normal Chloride Level [facility] ([facility]) glomerular filtration rate > 60.0 >58 Glomerula r Filtration Rate [facility] ([facility]) potassium serum 4.5 mEq/L 3.5-5.1 Potassium Serum ATHE NA ([facility]) AST/SGOT 9 U/L 7-37 AST/SGOT [facility] ([facility]) calcium level 9.0 mg/dL 8.5-10.1 Calcium Level [facility] ( [facility]) anion gap 8 mEq/L 8-16 Anion Gap [facility] ([facility]) carbon dioxide level 24 mEq/L 21-32 Carbon Dioxide Level [facility] ([facility]) ALT/SGPT 20 U/L 12-78 ALT/SGPT [facility] ([facility]) albumin 3.5 gm/dL 3.2-5.2 Albumin [facility] ([facility]) alkaline phosphatase 128 U/L 45-117 Above high normal Alkaline Phosphatase [facility] ([facility]) bilirubin,total 0.4 mg/dL 0.2-1.0 Bilirubin,total ATHE NA ([facility]) total protein 7.0 gm/dL 6.4-8.2 Total Protein [facility] ( [facility]) albumin/globulin ratio 1.2-2.2 Below low normal Albumin /globulin Ratio [facility] ([facility]) ID Date Data Source [id number] 02/23/2020 08:15:00 AM EDT [facility] ([facility]) Name Value Range Interpretation Code Description Data Mora rce(s) Supporting Document(s) white blood count 10.6 10 4.0-10.0 Above high normal White Blood Count [facility] ([facility]) red blood count 4.79 10 4.00-5.40 Red Blood Count AT[facility] ([facility]) hemoglobin 14.9 g/dL 12.0-15.5 Hemoglobin [facility] ([facility]) hematocrit 46.0 % 36.0-47.0 Hematocrit [facility] ([facility]) mean corpuscular volume 96.0 fL 80.0-96.0 Mean Corpusc ular Volume [facility] ([facility]) mean corpuscular HGB conc 32.4 g/dL 32.0-36.5 Mean Corpu scular HGB Conc [facility] ([facility]) mean corpuscular hemoglobin 31.1 pg 27.0-33.0 Mean Cor puscular Hemoglobin [facility] ([facility]) lymph % 27.1 % 24.0-44.0 Lymph % [facility] ([facility]) platelet count, automated 390 10 150-450 Platelet C ount, Automated [facility] ([facility]) red cell distribution width 13.7 % 11.5-14.5 Red Cell Distribution Width [facility] ([facility]) neutrophils % 62.1 % 36.0-66.0 Neutrophils % [facility] ( [facility]) immature granulocyte % 0.6 % 0-3.0 Immature Gran ulocyte % [facility] ([facility]) mono % 7.5 % 0.0-5.[address] [facility] % [facility] ([facility]) baso % 0.6 % 0.0-1.0 Baso % [facility] ([facility]) eos % 2.1 % 0.0-3.0 Eos % [facility] ([facility]) lymph # 2.9 10 1.5-5.0 Lymph # [facility] ([facility]) nucleated red blood cell % 0.0 % 0-0 Nucleated Red Blood Cell % [facility] ([facility]) mono # 0.8 10 0.0-0.8 [facility] [place] # [facility] ([facility]) neutrophils # 6.6 10 1.5-8.5 Neutrophils # [facility] ( [facility]) eos # 0.2 10 0.0-0.5 Eos # [facility] ([facility]) baso # 0.1 10 0.0-0.2 Baso # [facility] ([facility]) ID Date Data Source [id number] 02/23/2020 08:15:00 AM EDT [place] ([facility]) Name Value Range Interpretation Code Description Data Mora rce(s) Supporting Document(s) estimated average glucose 126 mg/dL 60-110 Above high norm al Estimated Average Glucose [place] ([facility]) Hemoglobin A1c/Hemoglobin.total in Blood 6.0 % Hemoglobin a1C [place] ([facility]) ID Date Data Source [id number] 02/23/2020 08:15:00 AM EDT [place] ([facility]) Name Value Range Interpretation Code Description Data Mora rce(s) Supporting Document(s) total 25(oh) vitamin D 27.8 NG/mL 30.0-100.0 Below low normal T otal 25(Oh) Vitamin D [facility] ([facility]) ID Date Data Source [id number] 02/23/2020 08:15:00 AM EDT [place] ([facility]) Name Value Range Interpretation Code Description Data Mora rce(s) Supporting Document(s) Cholesterol in LDL [Mass/volume] in Serum or Plasma 77 mg/dL <1 00 LDL Cholesterol [facility] ([facility]) HDL cholesterol 34 mg/dL >40 Below low normal HDL Cholestero l [facility] ([facility]) triglycerides level 197 mg/dL <150 Above high normal Triglycer ides Level [facility] ([facility]) cholesterol level 150 mg/dL <200 Cholesterol Level [facility] ([facility]) cholesterol risk ratio <5 Cholesterol R isk Ratio [facility] ([facility]) non-HDL-C 116 mg/dL Non-hdl-c [facility] ([facility]) ID Date Data Source [id number] 02/23/2020 08:15:00 AM EDT [facility]) Name Value Range Interpretation Code Description Data Mora rce(s) Supporting Document(s) creatinine for GFR 0.74 mg/dL 0.55-1.30 Creatinine for GF R [facility] ([facility]) blood urea nitrogen 11 mg/dL 7-18 Blood Urea Nitro gen [facility] ([facility]) glucose, fasting 96 mg/dL 70-100 Glucose, Fasting AT [facility] ([facility]) potassium serum 4.5 mEq/L 3.5-5.1 Potassium Serum ATHE NA ([facility]) glomerular filtration rate > 60.0 >58 Glomerula r Filtration Rate [facility] ([facility]) sodium level 140 mEq/L 136-145 Sodium Level [facility] ([facility]) chloride level 108 mEq/L 98-107 Above high normal Chloride Level [facility] ([facility]) AST/SGOT 9 U/L 7-37 AST/SGOT [facility] ([facility]) calcium level 9.0 mg/dL 8.5-10.1 Calcium Level [facility] ( [facility]) carbon dioxide level 24 mEq/L 21-32 Carbon Dioxide Level [facility] ([facility]) ALT/SGPT 20 U/L 12-78 ALT/SGPT [facility] ([facility]) anion gap 8 mEq/L 8-16 Anion Gap [facility] ([facility]) alkaline phosphatase 128 U/L 45-117 Above high normal Alkaline Phosphatase [facility] ([facility]) albumin 3.5 gm/dL 3.2-5.2 Albumin [facility] ([facility]) albumin/globulin ratio 1.2-2.2 Below low normal Albumin /globulin Ratio [facility] ([facility]) total protein 7.0 gm/dL 6.4-8.2 Total Protein [facility] ( [facility]) bilirubin,total 0.4 mg/dL 0.2-1.0 Bilirubin,total ATHE ([facility]) ID Date Data Source [id number] 02/23/2020 08:15:00 AM EDT [facility] ([facility]) Name Value Range Interpretation Code Description Data Mora rce(s) Supporting Document(s) white blood count 10.6 10 4.0-10.0 Above high normal White Blood Count [facility] ([facility]) red blood count 4.79 10 4.00-5.40 Red Blood Count ATHE NA ([facility]) hemoglobin 14.9 g/dL 12.0-15.5 Hemoglobin [facility] ([facility]) hematocrit 46.0 % 36.0-47.0 Hematocrit [facility] ([facility]) mean corpuscular volume 96.0 fL 80.0-96.0 Mean Corpusc ular Volume [facility] ([facility]) mean corpuscular hemoglobin 31.1 pg 27.0-33.0 Mean Cor puscular Hemoglobin [facility] ([facility]) red cell distribution width 13.7 % 11.5-14.5 Red Cell Distribution Width [facility] ([facility]) mean corpuscular HGB conc 32.4 g/dL 32.0-36.5 Mean Corpu scular HGB Conc [facility] ([facility]) platelet count, automated 390 10 150-450 Platelet C ount, Automated [facility] ([facility]) lymph % 27.1 % 24.0-44.0 Lymph % [facility] ([facility]) mono % 7.5 % 0.0-5.[address] [facility] % [facility] ([facility]) neutrophils % 62.1 % 36.0-66.0 Neutrophils % [facility] ( [facility]) baso % 0.6 % 0.0-1.0 Baso % [facility] ([facility]) eos % 2.1 % 0.0-3.0 Eos % [place] ([facility]) nucleated red blood cell % 0.0 % 0-0 Nucleated Red Blood Cell % [place] ([facility]) immature granulocyte % 0.6 % 0-3.0 Immature Gran ulocyte % [facility] ([facility]) eos # 0.2 10 0.0-0.5 Eos # [facility] ([facility]) lymph # 2.9 10 1.5-5.0 Lymph # [facility] ([facility]) mono # 0.8 10 0.0-0.8 [facility] # [facility] ([facility]) neutrophils # 6.6 10 1.5-8.5 Neutrophils # [facility] ( [facility]) baso # 0.1 10 0.0-0.2 Baso # [facility] ([facility]) ID Date Data Source [id number] 02/23/2020 08:15:00 AM EDT [place] ([facility]) Name Value Range Interpretation Code Description Data Mora rce(s) Supporting Document(s) Hemoglobin A1c/Hemoglobin.total in Blood 6.0 % Hemoglobin a1C [facility] ([facility]) estimated average glucose 126 mg/dL 60-110 Above high norm al Estimated Average Glucose [facility] ([facility]) ID Date Data Source [id number] 02/23/2020 08:15:00 AM EDT [place] ([facility]) Name Value Range Interpretation Code Description Data Mora rce(s) Supporting Document(s) total 25(oh) vitamin D 27.8 NG/mL 30.0-100.0 Below low normal T otal 25(Oh) Vitamin D [facility] ([facility]) ID Date Data Source [id number] 02/23/2020 08:15:00 AM EDT [facility] Name Value Range Interpretation Code Description Data Mora rce(s) Supporting Document(s) cholesterol level 150 mg/dL <200 Cholesterol Level [facility] ([facility]) triglycerides level 197 mg/dL <150 Above high normal Triglycer ides Level [facility] ([facility]) non-HDL-C 116 mg/dL Non-hdl-c [facility] ([facility]) HDL cholesterol 34 mg/dL >40 Below low normal HDL Cholestero l [facility] ([facility]) Cholesterol in LDL [Mass/volume] in Serum or Plasma 77 mg/dL <1 00 LDL Cholesterol [facility] ([facility]) cholesterol risk ratio <5 Cholesterol R isk Ratio [place] ([facility]) ID Date Data Source [id number] 02/23/2020 08:15:00 AM EDT [facility]) Name Value Range Interpretation Code Description Data Mora rce(s) Supporting Document(s) glomerular filtration rate > 60.0 >58 Glomerula r Filtration Rate [facility] ([facility]) glucose, fasting 96 mg/dL 70-100 Glucose, Fasting AT [facility] ([facility]) creatinine for GFR 0.74 mg/dL 0.55-1.30 Creatinine for GF R [facility] ([facility]) blood urea nitrogen 11 mg/dL 7-18 Blood Urea Nitro gen [facility] ([facility]) sodium level 140 mEq/L 136-145 Sodium Level [facility] ([facility]) carbon dioxide level 24 mEq/L 21-32 Carbon Dioxide Level [place] ([facility]) potassium serum 4.5 mEq/L 3.5-5.1 Potassium Serum ATHE NA ([facility]) anion gap 8 mEq/L 8-16 Anion Gap [facility] ([facility]) chloride level 108 mEq/L 98-107 Above high normal Chloride Level [facility] ([facility]) calcium level 9.0 mg/dL 8.5-10.1 Calcium Level [facility] ( [facility]) AST/SGOT 9 U/L 7-37 AST/SGOT [facility] ([facility]) alkaline phosphatase 128 U/L 45-117 Above high normal Alkaline Phosphatase [facility] ([facility]) ALT/SGPT 20 U/L 12-78 ALT/SGPT [facility] ([facility]) total protein 7.0 gm/dL 6.4-8.2 Total Protein [facility] ( [facility]) albumin/globulin ratio 1.2-2.2 Below low normal Albumin /globulin Ratio [facility] ([facility]) bilirubin,total 0.4 mg/dL 0.2-1.0 Bilirubin,total AT[facility] ([facility]) albumin 3.5 gm/dL 3.2-5.2 Albumin [facility] ([facility]) ID Date Data Source [id number] 02/23/2020 08:15:00 AM EDT [facility] ([facility]) Name Value Range Interpretation Code Description Data Mora rce(s) Supporting Document(s) red blood count 4.79 10 4.00-5.40 Red Blood Count AT[facility] ([facility]) white blood count 10.6 10 4.0-10.0 Above high normal White Blood Count [facility] ([facility]) hemoglobin 14.9 g/dL 12.0-15.5 Hemoglobin [facility] ([facility]) mean corpuscular volume 96.0 fL 80.0-96.0 Mean Corpusc ular Volume [facility] ([facility]) hematocrit 46.0 % 36.0-47.0 Hematocrit [facility] ([facility]) red cell distribution width 13.7 % 11.5-14.5 Red Cell Distribution Width [facility] ([facility]) mean corpuscular hemoglobin 31.1 pg 27.0-33.0 Mean Cor puscular Hemoglobin [facility] ([facility]) mean corpuscular HGB conc 32.4 g/dL 32.0-36.5 Mean Corpu scular HGB Conc [facility] ([facility]) platelet count, automated 390 10 150-450 Platelet C ount, Automated [facility] ([facility]) lymph % 27.1 % 24.0-44.0 Lymph % [facility] ([facility]) mono % 7.5 % 0.0-5.[address] [facility] % [place] ([facility]) neutrophils % 62.1 % 36.0-66.0 Neutrophils % [place] ( [facility]) eos % 2.1 % 0.0-3.0 Eos % [place] ([facility]) neutrophils # 6.6 10 1.5-8.5 Neutrophils # [place] ( [facility]) immature granulocyte % 0.6 % 0-3.0 Immature Gran ulocyte % [place] ([facility]) baso % 0.6 % 0.0-1.0 Baso % [place] ([facility]) nucleated red blood cell % 0.0 % 0-0 Nucleated Red Blood Cell % [place] ([facility]) eos # 0.2 10 0.0-0.5 Eos # [facility] ([facility]) baso # 0.1 10 0.0-0.2 Baso # [facility] ([facility]) mono # 0.8 10 0.0-0.8 [facility] # [facility] ([facility]) lymph # 2.9 10 1.5-5.0 Lymph # [place] ([facility]) ID Date Data Source [id number] 02/23/2020 08:15:00 AM EDT [place] ([facility]) Name Value Range Interpretation Code Description Data Mora rce(s) Supporting Document(s) Hemoglobin A1c/Hemoglobin.total in Blood 6.0 % Hemoglobin a1C [place] ([facility]) estimated average glucose 126 mg/dL 60-110 Above high norm al Estimated Average Glucose [facility] ([facility]) ID Date Data Source [id number] 02/23/2020 08:15:00 AM EDT [facility] ([facility]) Name Value Range Interpretation Code Description Data Mora rce(s) Supporting Document(s) total 25(oh) vitamin D 27.8 NG/mL 30.0-100.0 Below low normal T otal 25(Oh) Vitamin D [facility] ([facility]) ID Date Data Source [id number] 02/23/2020 08:15:00 AM EDT [facility] ([facility]) Name Value Range Interpretation Code Description Data Mora rce(s) Supporting Document(s) HDL cholesterol 34 mg/dL >40 Below low normal HDL Cholestero l [facility] ([facility]) triglycerides level 197 mg/dL <150 Above high normal Triglycer ides Level [facility] ([facility]) cholesterol level 150 mg/dL <200 Cholesterol Level [facility] ([facility]) non-HDL-C 116 mg/dL Non-hdl-c [facility] ([facility]) Cholesterol in LDL [Mass/volume] in Serum or Plasma 77 mg/dL <1 00 LDL Cholesterol [facility] ([facility]) cholesterol risk ratio <5 Cholesterol R isk Ratio [facility] ([facility]) ID Date Data Source [id number] 02/23/2020 08:15:00 AM EDT [place] ([facility]) Name Value Range Interpretation Code Description Data Mroa rce(s) Supporting Document(s) glucose, fasting 96 mg/dL 70-100 Glucose, Fasting AT [facility] ([facility]) creatinine for GFR 0.74 mg/dL 0.55-1.30 Creatinine for GF R [facility] ([facility]) glomerular filtration rate > 60.0 >58 Glomerula r Filtration Rate [facility] ([facility]) sodium level 140 mEq/L 136-145 Sodium Level [facility] ([facility]) blood urea nitrogen 11 mg/dL 7-18 Blood Urea Nitro gen [facility] ([facility]) potassium serum 4.5 mEq/L 3.5-5.1 Potassium Serum AT[facility] ([facility]) chloride level 108 mEq/L 98-107 Above high normal Chloride Level [facility] ([facility]) anion gap 8 mEq/L 8-16 Anion Gap [facility] ([facility]) carbon dioxide level 24 mEq/L 21-32 Carbon Dioxide Level [facility] ([facility]) calcium level 9.0 mg/dL 8.5-10.1 Calcium Level [facility] ( [facility]) ALT/SGPT 20 U/L 12-78 ALT/SGPT [facility] ([facility]) AST/SGOT 9 U/L 7-37 AST/SGOT [facility] ([facility]) alkaline phosphatase 128 U/L 45-117 Above high normal Alkaline Phosphatase [facility] ([facility]) total protein 7.0 gm/dL 6.4-8.2 Total Protein [facility] ( [facility]) bilirubin,total 0.4 mg/dL 0.2-1.0 Bilirubin,total ATHE ([facility]) albumin/globulin ratio 1.2-2.2 Below low normal Albumin /globulin Ratio [facility] ([facility]) albumin 3.5 gm/dL 3.2-5.2 Albumin [facility] ([facility]) ID Date Data Source [id number] 02/23/2020 08:15:00 AM EDT [facility] ([facility]) Name Value Range Interpretation Code Description Data Mora rce(s) Supporting Document(s) red blood count 4.79 10 4.00-5.40 Red Blood Count AT[facility] ([facility]) white blood count 10.6 10 4.0-10.0 Above high normal White Blood Count [facility] ([facility]) hemoglobin 14.9 g/dL 12.0-15.5 Hemoglobin [facility] ([facility]) mean corpuscular volume 96.0 fL 80.0-96.0 Mean Corpusc ular Volume [facility] ([facility]) hematocrit 46.0 % 36.0-47.0 Hematocrit [facility] ([facility]) mean corpuscular hemoglobin 31.1 pg 27.0-33.0 Mean Cor puscular Hemoglobin [facility] ([facility]) red cell distribution width 13.7 % 11.5-14.5 Red Cell Distribution Width [facility] ([facility]) mean corpuscular HGB conc 32.4 g/dL 32.0-36.5 Mean Corpu scular HGB Conc [facility] ([facility]) platelet count, automated 390 10 150-450 Platelet C ount, Automated [facility] ([facility]) neutrophils % 62.1 % 36.0-66.0 Neutrophils % [facility] ( [facility]) mono % 7.5 % 0.0-5.[address] [facility] % [place] ([facility]) lymph % 27.1 % 24.0-44.0 Lymph % [place] ([facility]) eos % 2.1 % 0.0-3.0 Eos % [place] ([facility]) baso % 0.6 % 0.0-1.0 Baso % [place] ([facility]) immature granulocyte % 0.6 % 0-3.0 Immature Gran ulocyte % [place] ([facility]) nucleated red blood cell % 0.0 % 0-0 Nucleated Red Blood Cell % [place] ([facility]) neutrophils # 6.6 10 1.5-8.5 Neutrophils # [facility] ( [facility]) mono # 0.8 10 0.0-0.8 [facility] # [facility] ([facility]) lymph # 2.9 10 1.5-5.0 Lymph # [facility] ([facility]) eos # 0.2 10 0.0-0.5 Eos # [facility] ([facility]) baso # 0.1 10 0.0-0.2 Baso # [facility] ([facility]) ID Date Data Source [id number] 02/23/2020 08:15:00 AM EDT [place] ([facility]) Name Value Range Interpretation Code Description Data Mora rce(s) Supporting Document(s) Hemoglobin A1c/Hemoglobin.total in Blood 6.0 % Hemoglobin a1C [facility] ([facility]) estimated average glucose 126 mg/dL 60-110 Above high norm al Estimated Average Glucose [place] ([facility]) ID Date Data Source [id number] 02/23/2020 08:15:00 AM EDT [place] ([facility]) Name Value Range Interpretation Code Description Data Mora rce(s) Supporting Document(s) total 25(oh) vitamin D 27.8 NG/mL 30.0-100.0 Below low normal T otal 25(Oh) Vitamin D [place] ([facility]) ID Date Data Source [id number] 02/23/2020 08:15:00 AM EDT [place] ([facility]) Name Value Range Interpretation Code Description Data Mora rce(s) Supporting Document(s) triglycerides level 197 mg/dL <150 Above high normal Triglycer ides Level [facility] ([facility]) HDL cholesterol 34 mg/dL >40 Below low normal HDL Cholestero l [place] ([facility]) Cholesterol in LDL [Mass/volume] in Serum or Plasma 77 mg/dL <1 00 LDL Cholesterol [facility] ([facility]) cholesterol level 150 mg/dL <200 Cholesterol Level [place] ([facility]) cholesterol risk ratio <5 Cholesterol R isk Ratio [place] ([facility]) non-HDL-C 116 mg/dL Non-hdl-c [facility] ([facility]) ID Date Data Source [id number] 02/23/2020 08:15:00 AM EDT [facility]) Name Value Range Interpretation Code Description Data Mora rce(s) Supporting Document(s) creatinine for GFR 0.74 mg/dL 0.55-1.30 Creatinine for GF R [place] ([facility]) glomerular filtration rate > 60.0 >58 Glomerula r Filtration Rate [facility] ([facility]) glucose, fasting 96 mg/dL 70-100 Glucose, Fasting AT [facility] ([facility]) blood urea nitrogen 11 mg/dL 7-18 Blood Urea Nitro gen [facility] ([facility]) chloride level 108 mEq/L 98-107 Above high normal Chloride Level [facility] ([facility]) sodium level 140 mEq/L 136-145 Sodium Level [facility] ([facility]) potassium serum 4.5 mEq/L 3.5-5.1 Potassium Serum ATHE NA ([facility]) carbon dioxide level 24 mEq/L 21-32 Carbon Dioxide Level [facility] ([facility]) alkaline phosphatase 128 U/L 45-117 Above high normal Alkaline Phosphatase [facility] ([facility]) anion gap 8 mEq/L 8-16 Anion Gap [facility] ([facility]) calcium level 9.0 mg/dL 8.5-10.1 Calcium Level [facility] ( [facility]) ALT/SGPT 20 U/L 12-78 ALT/SGPT [facility] ([facility]) AST/SGOT 9 U/L 7-37 AST/SGOT [facility] ([facility]) albumin/globulin ratio 1.2-2.2 Below low normal Albumin /globulin Ratio [facility] ([facility]) albumin 3.5 gm/dL 3.2-5.2 Albumin [facility] ([facility]) bilirubin,total 0.4 mg/dL 0.2-1.0 Bilirubin,total AT[facility] ([facility]) total protein 7.0 gm/dL 6.4-8.2 Total Protein [facility] ( [facility]) ID Date Data Source [id number] 02/23/2020 08:15:00 AM EDT [facility] ([facility]) Name Value Range Interpretation Code Description Data Mora rce(s) Supporting Document(s) red blood count 4.79 10 4.00-5.40 Red Blood Count [facility] ([facility]) white blood count 10.6 10 4.0-10.0 Above high normal White Blood Count [facility] ([facility]) mean corpuscular hemoglobin 31.1 pg 27.0-33.0 Mean Cor puscular Hemoglobin [facility] ([facility]) hematocrit 46.0 % 36.0-47.0 Hematocrit [facility] ([facility]) mean corpuscular volume 96.0 fL 80.0-96.0 Mean Corpusc ular Volume [facility] ([facility]) hemoglobin 14.9 g/dL 12.0-15.5 Hemoglobin [facility] ([facility]) red cell distribution width 13.7 % 11.5-14.5 Red Cell Distribution Width [facility] ([facility]) mean corpuscular HGB conc 32.4 g/dL 32.0-36.5 Mean Corpu scular HGB Conc [facility] ([facility]) platelet count, automated 390 10 150-450 Platelet C ount, Automated [facility] ([facility]) lymph % 27.1 % 24.0-44.0 Lymph % [facility] ([facility]) neutrophils % 62.1 % 36.0-66.0 Neutrophils % [place] ( [facility]) mono % 7.5 % 0.0-5.[address] [facility] % [facility] ([facility]) immature granulocyte % 0.6 % 0-3.0 Immature Gran ulocyte % [facility] ([facility]) baso % 0.6 % 0.0-1.0 Baso % [facility] ([facility]) nucleated red blood cell % 0.0 % 0-0 Nucleated Red Blood Cell % [facility] ([facility]) eos % 2.1 % 0.0-3.0 Eos % [facility] ([facility]) neutrophils # 6.6 10 1.5-8.5 Neutrophils # [facility] ( [facility]) eos # 0.2 10 0.0-0.5 Eos # [facility] ([facility]) mono # 0.8 10 0.0-0.8 [place] # [facility] ([facility]) lymph # 2.9 10 1.5-5.0 Lymph # [facility] ([facility]) baso # 0.1 10 0.0-0.2 Baso # [facility] ([facility]) ID Date Data Source [id number] 02/23/2020 08:15:00 AM EDT [place] ([facility]) Name Value Range Interpretation Code Description Data Mora rce(s) Supporting Document(s) estimated average glucose 126 mg/dL 60-110 Above high norm al Estimated Average Glucose [place] ([facility]) Hemoglobin A1c/Hemoglobin.total in Blood 6.0 % Hemoglobin a1C [place] ([facility]) ID Date Data Source [id number] 02/23/2020 08:15:00 AM EDT [place] ([facility]) Name Value Range Interpretation Code Description Data Mora rce(s) Supporting Document(s) total 25(oh) vitamin D 27.8 NG/mL 30.0-100.0 Below low normal T otal 25(Oh) Vitamin D [place] ([facility]) ID Date Data Source [id number] 02/23/2020 08:15:00 AM EDT [place] ([facility]) Name Value Range Interpretation Code Description Data Mora rce(s) Supporting Document(s) triglycerides level 197 mg/dL <150 Above high normal Triglycer ides Level [facility] ([facility]) cholesterol level 150 mg/dL <200 Cholesterol Level [place] ([facility]) Cholesterol in LDL [Mass/volume] in Serum or Plasma 77 mg/dL <1 00 LDL Cholesterol [facility] ([facility]) HDL cholesterol 34 mg/dL >40 Below low normal HDL Cholestero l [facility] ([facility]) cholesterol risk ratio <5 Cholesterol R isk Ratio [facility] ([facility]) non-HDL-C 116 mg/dL Non-hdl-c [facility] ([facility]) ID Date Data Source [id number] 02/23/2020 08:15:00 AM EDT [facility]) Name Value Range Interpretation Code Description Data Mora rce(s) Supporting Document(s) glucose, fasting 96 mg/dL 70-100 Glucose, Fasting AT [facility]) blood urea nitrogen 11 mg/dL 7-18 Blood Urea Nitro gen [facility] ([facility]) creatinine for GFR 0.74 mg/dL 0.55-1.30 Creatinine for GF R [facility] ([facility]) potassium serum 4.5 mEq/L 3.5-5.1 Potassium Serum [facility] NA ([facility]) glomerular filtration rate > 60.0 >58 Glomerula r Filtration Rate [place] ([facility]) sodium level 140 mEq/L 136-145 Sodium Level [facility] ([facility]) chloride level 108 mEq/L 98-107 Above high normal Chloride Level [facility] ([facility]) carbon dioxide level 24 mEq/L 21-32 Carbon Dioxide Level [facility] ([facility]) anion gap 8 mEq/L 8-16 Anion Gap [facility] ([facility]) ALT/SGPT 20 U/L 12-78 ALT/SGPT [facility] ([facility]) AST/SGOT 9 U/L 7-37 AST/SGOT [facility] ([facility]) calcium level 9.0 mg/dL 8.5-10.1 Calcium Level [facility] ( [facility]) bilirubin,total 0.4 mg/dL 0.2-1.0 Bilirubin,total [facility] ([facility]) alkaline phosphatase 128 U/L 45-117 Above high normal Alkaline Phosphatase [facility] ([facility]) albumin/globulin ratio 1.2-2.2 Below low normal Albumin /globulin Ratio [facility] ([facility]) total protein 7.0 gm/dL 6.4-8.2 Total Protein [facility] ( [facility]) albumin 3.5 gm/dL 3.2-5.2 Albumin [facility] ([facility]) ID Date Data Source [id number] 02/23/2020 08:15:00 AM EDT [facility] ([facility]) Name Value Range Interpretation Code Description Data Mora rce(s) Supporting Document(s) white blood count 10.6 10 4.0-10.0 Above high normal White Blood Count [facility] ([facility]) red blood count 4.79 10 4.00-5.40 Red Blood Count AT[facility] NA ([facility]) hemoglobin 14.9 g/dL 12.0-15.5 Hemoglobin [facility] ([facility]) hematocrit 46.0 % 36.0-47.0 Hematocrit [facility] ([facility]) mean corpuscular hemoglobin 31.1 pg 27.0-33.0 Mean Cor puscular Hemoglobin [facility] ([facility]) mean corpuscular volume 96.0 fL 80.0-96.0 Mean Corpusc ular Volume [facility] ([facility]) mean corpuscular HGB conc 32.4 g/dL 32.0-36.5 Mean Corpu scular HGB Conc [facility] ([facility]) neutrophils % 62.1 % 36.0-66.0 Neutrophils % [facility] ( [facility]) platelet count, automated 390 10 150-450 Platelet C ount, Automated [facility] ([facility]) red cell distribution width 13.7 % 11.5-14.5 Red Cell Distribution Width [facility] ([facility]) mono % 7.5 % 0.0-5.[address] [facility] % [facility] ([facility]) lymph % 27.1 % 24.0-44.0 Lymph % [facility] ([facility]) eos % 2.1 % 0.0-3.0 Eos % [facility] ([facility]) baso % 0.6 % 0.0-1.0 Baso % [facility] ([facility]) immature granulocyte % 0.6 % 0-3.0 Immature Gran ulocyte % [facility] ([facility]) lymph # 2.9 10 1.5-5.0 Lymph # [facility] ([facility]) neutrophils # 6.6 10 1.5-8.5 Neutrophils # [place] ( [facility]) nucleated red blood cell % 0.0 % 0-0 Nucleated Red Blood Cell % [facility] ([facility]) eos # 0.2 10 0.0-0.5 Eos # [place] ([facility]) baso # 0.1 10 0.0-0.2 Baso # [facility] ([facility]) mono # 0.8 10 0.0-0.8 [facility] # [facility] ([facility]) ID Date Data Source [id number] 02/23/2020 08:15:00 AM EDT [place] ([facility]) Name Value Range Interpretation Code Description Data Mora rce(s) Supporting Document(s) Hemoglobin A1c/Hemoglobin.total in Blood 6.0 % Hemoglobin a1C [facility] ([facility]) estimated average glucose 126 mg/dL 60-110 Above high norm al Estimated Average Glucose [place] ([facility]) ID Date Data Source [id number] 02/23/2020 08:15:00 AM [facility] Name Value Range Interpretation Code Description Data Mora rce(s) Supporting Document(s) total 25(oh) vitamin D 27.8 NG/mL 30.0-100.0 Below low normal T otal 25(Oh) Vitamin D [facility]) ID Date Data Source [id number] 02/23/2020 08:15:00 AM EDT [facility]) Name Value Range Interpretation Code Description Data Mora rce(s) Supporting Document(s) HDL cholesterol 34 mg/dL >40 Below low normal HDL Cholestero l [facility] ([facility]) Cholesterol in LDL [Mass/volume] in Serum or Plasma 77 mg/dL <1 00 LDL Cholesterol [facility] ([facility]) cholesterol level 150 mg/dL <200 Cholesterol Level [facility] ([facility]) triglycerides level 197 mg/dL <150 Above high normal Triglycer ides Level [facility] ([facility]) non-HDL-C 116 mg/dL Non-hdl-c [facility] ([facility]) cholesterol risk ratio <5 Cholesterol R isk Ratio [place] ([facility]) ID Date Data Source [id number] 02/23/2020 08:15:00 AM EDT [facility]) Name Value Range Interpretation Code Description Data Mora rce(s) Supporting Document(s) glucose, fasting 96 mg/dL 70-100 Glucose, Fasting AT [place] ([facility]) blood urea nitrogen 11 mg/dL 7-18 Blood Urea Nitro gen [facility] ([facility]) glomerular filtration rate > 60.0 >58 Glomerula r Filtration Rate [facility] ([facility]) creatinine for GFR 0.74 mg/dL 0.55-1.30 Creatinine for GF R [facility] ([facility]) chloride level 108 mEq/L 98-107 Above high normal Chloride Level [facility] ([facility]) carbon dioxide level 24 mEq/L 21-32 Carbon Dioxide Level [facility] ([facility]) potassium serum 4.5 mEq/L 3.5-5.1 Potassium Serum [place] ([facility]) sodium level 140 mEq/L 136-145 Sodium Level [facility] ([facility]) ALT/SGPT 20 U/L 12-78 ALT/SGPT [place] ([facility]) anion gap 8 mEq/L 8-16 Anion Gap [facility] ([facility]) calcium level 9.0 mg/dL 8.5-10.1 Calcium Level [place] ( [facility]) AST/SGOT 9 U/L 7-37 AST/SGOT [place] ([facility]) alkaline phosphatase 128 U/L 45-117 Above high normal Alkaline Phosphatase [facility] ([facility]) bilirubin,total 0.4 mg/dL 0.2-1.0 Bilirubin,total [place] ([facility]) albumin 3.5 gm/dL 3.2-5.2 Albumin [place] ([facility]) total protein 7.0 gm/dL 6.4-8.2 Total Protein [place] ( [facility]) albumin/globulin ratio 1.2-2.2 Below low normal Albumin /globulin Ratio [facility] ([facility]) ID Date Data Source [id number] 02/23/2020 08:15:00 AM EDT [place] ([facility]) Name Value Range Interpretation Code Description Data Mora rce(s) Supporting Document(s) white blood count 10.6 10 4.0-10.0 Above high normal White Blood Count [facility] ([facility]) red blood count 4.79 10 4.00-5.40 Red Blood Count [facility] NA ([facility]) hemoglobin 14.9 g/dL 12.0-15.5 Hemoglobin [facility] ([facility]) hematocrit 46.0 % 36.0-47.0 Hematocrit [facility] ([facility]) mean corpuscular hemoglobin 31.1 pg 27.0-33.0 Mean Cor puscular Hemoglobin [facility] ([facility]) mean corpuscular volume 96.0 fL 80.0-96.0 Mean Corpusc ular Volume [facility] ([facility]) mean corpuscular HGB conc 32.4 g/dL 32.0-36.5 Mean Corpu scular HGB Conc [facility] ([facility]) lymph % 27.1 % 24.0-44.0 Lymph % [facility] ([facility]) neutrophils % 62.1 % 36.0-66.0 Neutrophils % [place] ( [facility]) platelet count, automated 390 10 150-450 Platelet C ount, Automated [place] ([facility]) red cell distribution width 13.7 % 11.5-14.5 Red Cell Distribution Width [facility] ([facility]) eos % 2.1 % 0.0-3.0 Eos % [place] ([facility]) baso % 0.6 % 0.0-1.0 Baso % [facility] ([facility]) mono % 7.5 % 0.0-5.[address] [facility] % [facility] ([facility]) lymph # 2.9 10 1.5-5.0 Lymph # [facility] ([facility]) nucleated red blood cell % 0.0 % 0-0 Nucleated Red Blood Cell % [facility] ([facility]) immature granulocyte % 0.6 % 0-3.0 Immature Gran ulocyte % [facility] ([facility]) neutrophils # 6.6 10 1.5-8.5 Neutrophils # [place] ( [facility]) baso # 0.1 10 0.0-0.2 Baso # [facility] ([facility]) eos # 0.2 10 0.0-0.5 Eos # [facility] ([facility]) mono # 0.8 10 0.0-0.8 [facility] # [facility] ([facility]) ID Date Data Source [id number] 02/23/2020 08:15:00 AM EDT [place] ([facility]) Name Value Range Interpretation Code Description Data Mora rce(s) Supporting Document(s) Hemoglobin A1c/Hemoglobin.total in Blood 6.0 % Hemoglobin a1C [facility] ([facility]) estimated average glucose 126 mg/dL 60-110 Above high norm al Estimated Average Glucose [place] ([facility]) ID Date Data Source [id number] 02/23/2020 08:15:00 AM EDT [place] ([facility]) Name Value Range Interpretation Code Description Data Mora rce(s) Supporting Document(s) total 25(oh) vitamin D 27.8 NG/mL 30.0-100.0 Below low normal T otal 25(Oh) Vitamin D [place] ([facility]) ID Date Data Source [id number] 02/23/2020 08:15:00 AM EDT [place] ([facility]) Name Value Range Interpretation Code Description Data Mora rce(s) Supporting Document(s) cholesterol level 150 mg/dL <200 Cholesterol Level [facility] ([facility]) triglycerides level 197 mg/dL <150 Above high normal Triglycer ides Level [facility] ([facility]) Cholesterol in LDL [Mass/volume] in Serum or Plasma 77 mg/dL <1 00 LDL Cholesterol [facility] ([facility]) non-HDL-C 116 mg/dL Non-hdl-c [facility] ([facility]) HDL cholesterol 34 mg/dL >40 Below low normal HDL Cholestero l [facility] ([facility]) cholesterol risk ratio <5 Cholesterol R isk Ratio [facility] ([facility]) ID Date Data Source [id number] 02/23/2020 08:15:00 AM EDT [place] ([facility]) Name Value Range Interpretation Code Description Data Mora rce(s) Supporting Document(s) glucose, fasting 96 mg/dL 70-100 Glucose, Fasting AT [facility] ([facility]) blood urea nitrogen 11 mg/dL 7-18 Blood Urea Nitro gen [facility] ([facility]) creatinine for GFR 0.74 mg/dL 0.55-1.30 Creatinine for GF R [facility] ([facility]) sodium level 140 mEq/L 136-145 Sodium Level [facility] ([facility]) glomerular filtration rate > 60.0 >58 Glomerula r Filtration Rate [facility] ([facility]) chloride level 108 mEq/L 98-107 Above high normal Chloride Level [facility] ([facility]) potassium serum 4.5 mEq/L 3.5-5.1 Potassium Serum [facility] ([facility]) anion gap 8 mEq/L 8-16 Anion Gap [facility] ([facility]) carbon dioxide level 24 mEq/L 21-32 Carbon Dioxide Level [facility] ([facility]) AST/SGOT 9 U/L 7-37 AST/SGOT [facility] ([facility]) ALT/SGPT 20 U/L 12-78 ALT/SGPT [facility] ([facility]) calcium level 9.0 mg/dL 8.5-10.1 Calcium Level [facility] ( [facility]) alkaline phosphatase 128 U/L 45-117 Above high normal Alkaline Phosphatase [facility] ([facility]) albumin 3.5 gm/dL 3.2-5.2 Albumin [facility] ([facility]) bilirubin,total 0.4 mg/dL 0.2-1.0 Bilirubin,total ATHE NA ([facility]) total protein 7.0 gm/dL 6.4-8.2 Total Protein [facility] ( [facility]) albumin/globulin ratio 1.2-2.2 Below low normal Albumin /globulin Ratio [facility] ([facility]) ID Date Data Source [id number] 02/23/2020 08:15:00 AM EDT [place] ([facility]) Name Value Range Interpretation Code Description Data Mora rce(s) Supporting Document(s) red blood count 4.79 10 4.00-5.40 Red Blood Count [facility] NA ([facility]) white blood count 10.6 10 4.0-10.0 Above high normal White Blood Count [facility] ([facility]) mean corpuscular volume 96.0 fL 80.0-96.0 Mean Corpusc ular Volume [facility] ([facility]) hemoglobin 14.9 g/dL 12.0-15.5 Hemoglobin [facility] ([facility]) hematocrit 46.0 % 36.0-47.0 Hematocrit [facility] ([facility]) mean corpuscular HGB conc 32.4 g/dL 32.0-36.5 Mean Corpu scular HGB Conc [facility] ([facility]) mean corpuscular hemoglobin 31.1 pg 27.0-33.0 Mean Cor puscular Hemoglobin [facility] ([facility]) neutrophils % 62.1 % 36.0-66.0 Neutrophils % [place] ( [facility]) platelet count, automated 390 10 150-450 Platelet C ount, Automated [place] ([facility]) red cell distribution width 13.7 % 11.5-14.5 Red Cell Distribution Width [facility] ([facility]) lymph % 27.1 % 24.0-44.0 Lymph % [facility] ([facility]) mono % 7.5 % 0.0-5.[address] [facility] % [facility] ([facility]) eos % 2.1 % 0.0-3.0 Eos % [place] ([facility]) immature granulocyte % 0.6 % 0-3.0 Immature Gran ulocyte % [facility] ([facility]) baso % 0.6 % 0.0-1.0 Baso % [facility] ([facility]) neutrophils # 6.6 10 1.5-8.5 Neutrophils # [place] ( [facility]) nucleated red blood cell % 0.0 % 0-0 Nucleated Red Blood Cell % [facility] ([facility]) lymph # 2.9 10 1.5-5.0 Lymph # [facility] ([facility]) mono # 0.8 10 0.0-0.8 [facility] # [facility] ([facility]) eos # 0.2 10 0.0-0.5 Eos # [place] ([facility]) baso # 0.1 10 0.0-0.2 Baso # [place] ([facility]) ID Date Data Source [id number] 02/23/2020 08:15:00 AM EDT [place] ([facility]) Name Value Range Interpretation Code Description Data Mora rce(s) Supporting Document(s) estimated average glucose 126 mg/dL 60-110 Above high norm al Estimated Average Glucose [facility] ([facility]) Hemoglobin A1c/Hemoglobin.total in Blood 6.0 % Hemoglobin a1C [facility] ([facility]) ID Date Data Source [id number] 02/23/2020 08:15:00 AM EDT [place] ([facility]) Name Value Range Interpretation Code Description Data Mora rce(s) Supporting Document(s) total 25(oh) vitamin D 27.8 NG/mL 30.0-100.0 Below low normal T otal 25(Oh) Vitamin D [place] ([facility]) ID Date Data Source [id number] 02/23/2020 08:15:00 AM EDT [place] ([facility]) Name Value Range Interpretation Code Description Data Mora rce(s) Supporting Document(s) triglycerides level 197 mg/dL <150 Above high normal Triglycer ides Level [facility] ([facility]) cholesterol level 150 mg/dL <200 Cholesterol Level [facility] ([facility]) HDL cholesterol 34 mg/dL >40 Below low normal HDL Cholestero l [facility] ([facility]) non-HDL-C 116 mg/dL Non-hdl-c [facility] ([facility]) Cholesterol in LDL [Mass/volume] in Serum or Plasma 77 mg/dL <1 00 LDL Cholesterol [facility] ([facility]) cholesterol risk ratio <5 Cholesterol R isk Ratio [facility] ([facility]) ID Date Data Source [id number] 02/23/2020 08:15:00 AM EDT [place] ([facility]) Name Value Range Interpretation Code Description Data Mora rce(s) Supporting Document(s) blood urea nitrogen 11 mg/dL 7-18 Blood Urea Nitro gen [facility] ([facility]) creatinine for GFR 0.74 mg/dL 0.55-1.30 Creatinine for GF R [facility] ([facility]) glomerular filtration rate > 60.0 >58 Glomerula r Filtration Rate [facility] ([facility]) glucose, fasting 96 mg/dL 70-100 Glucose, Fasting AT [facility] ([facility]) sodium level 140 mEq/L 136-145 Sodium Level [facility] ([facility]) chloride level 108 mEq/L 98-107 Above high normal Chloride Level [facility] ([facility]) potassium serum 4.5 mEq/L 3.5-5.1 Potassium Serum ATHE NA ([facility]) carbon dioxide level 24 mEq/L 21-32 Carbon Dioxide Level [facility] ([facility]) calcium level 9.0 mg/dL 8.5-10.1 Calcium Level [facility] ( [facility]) ALT/SGPT 20 U/L 12-78 ALT/SGPT [facility] ([facility]) AST/SGOT 9 U/L 7-37 AST/SGOT [facility] ([facility]) anion gap 8 mEq/L 8-16 Anion Gap [facility] ([facility]) bilirubin,total 0.4 mg/dL 0.2-1.0 Bilirubin,total AT[facility] ([facility]) alkaline phosphatase 128 U/L 45-117 Above high normal Alkaline Phosphatase [facility] ([facility]) total protein 7.0 gm/dL 6.4-8.2 Total Protein [facility] ( [facility]) albumin 3.5 gm/dL 3.2-5.2 Albumin [facility] ([facility]) albumin/globulin ratio 1.2-2.2 Below low normal Albumin /globulin Ratio [facility] ([facility]) ID Date Data Source [id number] 02/23/2020 08:15:00 AM EDT [facility] ([facility]) Name Value Range Interpretation Code Description Data Mora rce(s) Supporting Document(s) red blood count 4.79 10 4.00-5.40 Red Blood Count ATHE NA ([facility]) white blood count 10.6 10 4.0-10.0 Above high normal White Blood Count [facility] ([facility]) mean corpuscular volume 96.0 fL 80.0-96.0 Mean Corpusc ular Volume [facility] ([facility]) hemoglobin 14.9 g/dL 12.0-15.5 Hemoglobin [facility] ([facility]) hematocrit 46.0 % 36.0-47.0 Hematocrit [facility] ([facility]) platelet count, automated 390 10 150-450 Platelet C ount, Automated [facility] ([facility]) mean corpuscular hemoglobin 31.1 pg 27.0-33.0 Mean Cor puscular Hemoglobin [facility] ([facility]) mean corpuscular HGB conc 32.4 g/dL 32.0-36.5 Mean Corpu scular HGB Conc [facility] ([facility]) red cell distribution width 13.7 % 11.5-14.5 Red Cell Distribution Width [facility] ([facility]) neutrophils % 62.1 % 36.0-66.0 Neutrophils % [facility] ( [facility]) mono % 7.5 % 0.0-5.[address] [facility] % [facility] [facility]) lymph % 27.1 % 24.0-44.0 Lymph % RADHA ([facility]) baso % 0.6 % 0.0-1.0 Baso % RADHA ([facility]) eos % 2.1 % 0.0-3.0 Eos % RADHA ([facility]) immature granulocyte % 0.6 % 0-3.0 Immature Gran ulocyte % RADHA ([facility]) mono # 0.8 10 0.0-0.8 [facility] [place] # RADHA ([facility]) neutrophils # 6.6 10 1.5-8.5 Neutrophils # RADHA ( [facility]) lymph # 2.9 10 1.5-5.0 Lymph # RADHA ([facility]) nucleated red blood cell % 0.0 % 0-0 Nucleated Red Blood Cell % RADHA ([facility]) eos # 0.2 10 0.0-0.5 Eos # RADHA ([facility]) baso # 0.1 10 0.0-0.2 Baso # RADHA ([facility]) Procedure Social History No Information Vital Signs ID Date Data Source UNK Name Value Range Interpretation Code Description Data Source(s) Diastolic blood pressure 64 mm[Hg] 64 mm[Hg] MEDENT ([facility]) sitting Body weight 261.00 [lb_av] 261.00 [lb_av] MEDEN T ([facility]) Body height 65.50 [in_i] 65.50 [in_i] MEDENT ([facility]) 5'5.50" Body mass index (BMI) [Ratio] 42.8 kg/m2 42.8 k g/m2 MEDENT ([facility]) Heart rate 100 /min 100 /min MEDENT ([facility]) Regular Respiratory rate 16 /min 16 /min MEDENT ( [facility]) Systolic blood pressure 118 mm[Hg] 118 mm[Hg] M EDENT ([facility]) sitting, large cuff Diastolic blood pressure 68 mm[Hg] 68 mm[Hg] MEDENT ([facility]) sitting, large cuff Systolic blood pressure 112 mm[Hg] 112 mm[Hg] M EDENT ([facility]) sitting Diastolic blood pressure 80 mm[Hg] 80 mm[Hg] MEDENT ([facility] ) Systolic blood pressure 118 mm[Hg] 118 mm[Hg] M EDENT ([facility] ) Respiratory rate 20 /min 20 /min MEDENT ( [facility] ) Heart rate 116 /min 116 /min MEDENT ([facility] ) Body mass index (BMI) [Ratio] 42.8 kg/m2 42.8 k g/m2 MEDENT ([facility]) Body weight 265.38 [lb_av] 265.38 [lb_av] MEDEN T ([facility]) Body height 66 [in_i] 66 [in_i] MEDENT ([facility]) 5'6" Body temperature 96.9 [degF] 96.9 [degF] MEDENT ([facility]) Diastolic blood pressure 83 mm[Hg] 83 mm[Hg] RADHA ([facility]) Diastolic blood pressure 93 mm[Hg] 93 mm[Hg] RADHA ([facility]) Body height 66 [in_i] 66 [in_i] RADHA ([facility]) Body mass index (BMI) [Ratio] 43.6 kg/m2 43.6 k g/m2 RADHA ([facility]) Systolic blood pressure 126 mm[Hg] 126 mm[Hg] [facility] Systolic blood pressure 141 mm[Hg] 141 mm[Hg] A [facility] ([facility]) Body weight 4320 [oz_av] 4320 [oz_av] RADHA ([facility]) Diastolic blood pressure 83 mm[Hg] 83 mm[Hg] RADHA ([facility]) Diastolic blood pressure 93 mm[Hg] 93 mm[Hg] RADHA ([facility]) Body height 66 [in_i] 66 [in_i] RADHA ([facility]) Body mass index (BMI) [Ratio] 43.6 kg/m2 43.6 k g/m2 RADHA ([facility]) Systolic blood pressure 126 mm[Hg] 126 mm[Hg] A THENA ([facility]) Systolic blood pressure 141 mm[Hg] 141 mm[Hg] A THENA ([facility]) Body weight 4320 [oz_av] 4320 [oz_av] RADHA ([facility]) Diastolic blood pressure 87 mm[Hg] 87 mm[Hg] RADHA ([facility]) Body height 66 [in_i] 66 [in_i] RADHA ([facility]) Body mass index (BMI) [Ratio] 42.9 kg/m2 42.9 k g/m2 RADHA ([facility]) Systolic blood pressure 129 mm[Hg] 129 mm[Hg] A THENA ([facility]) Body weight 4256 [oz_av] 4256 [oz_av] RADHA ([facility]) Diastolic blood pressure 87 mm[Hg] 87 mm[Hg] RADHA ([facility]) Body height 66 [in_i] 66 [in_i] RADHA ([facility]) Body mass index (BMI) [Ratio] 42.9 kg/m2 42.9 k g/m2 RADHA ([facility]) Systolic blood pressure 129 mm[Hg] 129 mm[Hg] [facility] Body weight 4256 [oz_av] 4256 [oz_av] RADHA ([facility]) Body weight 4256 [oz_av] 4256 [oz_av] RADHA ([facility]) Diastolic blood pressure 87 mm[Hg] 87 mm[Hg] RADHA ([facility]) Body height 66 [in_i] 66 [in_i] RADHA ([facility]) Body mass index (BMI) [Ratio] 42.9 kg/m2 42.9 k g/m2 RADHA ([facility]) Systolic blood pressure 129 mm[Hg] 129 mm[Hg] [facility] Diastolic blood pressure 87 mm[Hg] 87 mm[Hg] RADHA ([facility]) Body height 66 [in_i] 66 [in_i] RADHA ([facility]) Body mass index (BMI) [Ratio] 42.9 kg/m2 42.9 k g/m2 RADHA ([facility]) Systolic blood pressure 129 mm[Hg] 129 mm[Hg] A THENA ([facility]) Body weight 4256 [oz_av] 4256 [oz_av] RADHA ([facility]) Body weight 268 [lb_av] 268 [lb_av] RADHA ([facility]) Diastolic blood pressure 91 mm[Hg] 91 mm[Hg] RADHA ([facility]) Body height 66 [in_i] 66 [in_i] RADHA ([facility]) Body mass index (BMI) [Ratio] 43.3 kg/m2 43.3 k g/m2 RADHA ([facility]) Systolic blood pressure 141 mm[Hg] 141 mm[Hg] A THENA ([facility]) Diastolic blood pressure 80 mm[Hg] 80 mm[Hg] RADHA ([facility]) Diastolic blood pressure 82 mm[Hg] 82 mm[Hg] RADHA ([facility]) Body height 66 [in_i] 66 [in_i] RADHA ([facility]) Body mass index (BMI) [Ratio] 42.2 kg/m2 42.2 k g/m2 RADHA ([facility]) Systolic blood pressure 130 mm[Hg] 130 mm[Hg] A THENA ([facility]) Systolic blood pressure 136 mm[Hg] 136 mm[Hg] A THENA ([facility]) Body weight 4185.6 [oz_av] 4185.6 [oz_av] ATHEN A ([facility]) Diastolic blood pressure 80 mm[Hg] 80 mm[Hg] RADHA ([facility]) Diastolic blood pressure 82 mm[Hg] 82 mm[Hg] RADHA ([facility]) Body height 66 [in_i] 66 [in_i] RADHA ([facility]) Body mass index (BMI) [Ratio] 42.2 kg/m2 42.2 k g/m2 RADHA ([facility]) Systolic blood pressure 130 mm[Hg] 130 mm[Hg] A THENA ([facility]) Systolic blood pressure 136 mm[Hg] 136 mm[Hg] A THENA ([facility]) Body weight 4185.6 [oz_av] 4185.6 [oz_av] ATHEN A ([facility]) Diastolic blood pressure 80 mm[Hg] 80 mm[Hg] RADHA ([facility]) Diastolic blood pressure 82 mm[Hg] 82 mm[Hg] RADHA ([facility]) Body height 66 [in_i] 66 [in_i] RADHA ([facility]) Body mass index (BMI) [Ratio] 42.2 kg/m2 42.2 k g/m2 RADHA ([facility]) Systolic blood pressure 130 mm[Hg] 130 mm[Hg] [facility] Systolic blood pressure 136 mm[Hg] 136 mm[Hg] [facility]) Body weight 4185.6 [oz_av] 4185.6 [oz_av] ATHEN A ([facility]) Diastolic blood pressure 80 mm[Hg] 80 mm[Hg] RADHA ([facility]) Diastolic blood pressure 82 mm[Hg] 82 mm[Hg] RADHA ([facility]) Body height 66 [in_i] 66 [in_i] RADHA ([facility]) Body mass index (BMI) [Ratio] 42.2 kg/m2 42.2 k g/m2 RADHA ([facility]) Systolic blood pressure 130 mm[Hg] 130 mm[Hg] [facility] Systolic blood pressure 136 mm[Hg] 136 mm[Hg] A THENA ([facility]) Body weight 4185.6 [oz_av] 4185.6 [oz_av] ATHEN A ([facility]) Body height 66 [in_i] 66 [in_i] RADHA ([facility]) Body height 66 [in_i] 66 [in_i] RADHA ([facility]) Body height 66 [in_i] 66 [in_i] RADHA ([facility]) Body height 66 [in_i] 66 [in_i] RADHA ([facility]) Body height 66 [in_i] 66 [in_i] RADHA ([facility]) Diastolic blood pressure 80 mm[Hg] 80 mm[Hg] RADHA ([facility]) Body height 66 [in_i] 66 [in_i] RADHA ([facility]) Body mass index (BMI) [Ratio] 43.8 kg/m2 43.8 k g/m2 RADHA ([facility]) Systolic blood pressure 121 mm[Hg] 121 mm[Hg] A THENA ([facility]) Body weight 4340 [oz_av] 4340 [oz_av] RADHA ([facility]) Diastolic blood pressure 80 mm[Hg] 80 mm[Hg] RADHA ([facility]) Body height 66 [in_i] 66 [in_i] RADHA ([facility]) Body mass index (BMI) [Ratio] 43.8 kg/m2 43.8 k g/m2 RADHA ([facility]) Systolic blood pressure 121 mm[Hg] 121 mm[Hg] [facility] Body weight 4340 [oz_av] 4340 [oz_av] RADHA ([facility]) Diastolic blood pressure 80 mm[Hg] 80 mm[Hg] RADHA ([facility]) Body height 66 [in_i] 66 [in_i] RADHA ([facility]) Body mass index (BMI) [Ratio] 43.8 kg/m2 43.8 k g/m2 RADHA ([facility]) Systolic blood pressure 121 mm[Hg] 121 mm[Hg] A THENA ([facility]) Body weight 4340 [oz_av] 4340 [oz_av] RADHA ([facility]) Diastolic blood pressure 80 mm[Hg] 80 mm[Hg] RADHA ([facility]) Body height 66 [in_i] 66 [in_i] RADHA ([facility]) Body mass index (BMI) [Ratio] 43.8 kg/m2 43.8 k g/m2 RADHA ([facility]) Systolic blood pressure 121 mm[Hg] 121 mm[Hg] A THENA ([facility]) Body weight 4340 [oz_av] 4340 [oz_av] RADHA ([facility]) Diastolic blood pressure 80 mm[Hg] 80 mm[Hg] RADHA ([facility]) Body height 66 [in_i] 66 [in_i] RADHA ([facility]) Body mass index (BMI) [Ratio] 43.8 kg/m2 43.8 k g/m2 RADHA ([facility]) Systolic blood pressure 121 mm[Hg] 121 mm[Hg] A THENA ([facility]) Body weight 4340 [oz_av] 4340 [oz_av] RADHA ([facility]) Diastolic blood pressure 80 mm[Hg] 80 mm[Hg] RADHA ([facility]) Body height 66 [in_i] 66 [in_i] RADHA ([facility]) Body mass index (BMI) [Ratio] 43.8 kg/m2 43.8 k g/m2 RADHA ([facility]) Systolic blood pressure 121 mm[Hg] 121 mm[Hg] A THENA ([facility]) Body weight 4340 [oz_av] 4340 [oz_av] RADHA ([facility]) Body height 66 [in_i] 66 [in_i] RADHA ([facility]) Body height 66 [in_i] 66 [in_i] RADHA ([facility]) Body height 66 [in_i] 66 [in_i] RADHA ([facility]) Body height 66 [in_i] 66 [in_i] RADHA ([facility]) Body height 66 [in_i] 66 [in_i] RADHA ([facility]) Body height 66 [in_i] 66 [in_i] RADHA ([facility]) Body height 66 [in_i] 66 [in_i] RADHA ([facility]) Body height 65.50 [in_i] 65.50 [in_i] CALVIN ([facility] 5'5.50" Body weight 265.00 [lb_av] 265.00 [lb_av] MEDEN T ([facility]) Body mass index (BMI) [Ratio] 43.4 kg/m2 43.4 k g/m2 MEDENT ([facility]) Heart rate 96 /min 96 /min MEDENT ([facility]) Regular Respiratory rate 16 /min 16 /min MEDENT ( [facility]) Systolic blood pressure 114 mm[Hg] 114 mm[Hg] M EDENT ([facility]) sitting, large cuff Diastolic blood pressure 64 mm[Hg] 64 mm[Hg] MEDENT ([facility]) sitting, large cuff Systolic blood pressure 112 mm[Hg] 112 mm[Hg] M EDENT ([facility]) sitting Diastolic blood pressure 60 mm[Hg] 60 mm[Hg] CALVIN ([facility]) sitting Body height 66 [in_i] 66 [in_i] RADHA ([facility]) Diastolic blood pressure 80 mm[Hg] 80 mm[Hg] RADHA ([facility]) Body height 66 [in_i] 66 [in_i] RADHA ([facility]) Body mass index (BMI) [Ratio] 43.3 kg/m2 43.3 k g/m2 RADHA ([facility]) Systolic blood pressure 128 mm[Hg] 128 mm[Hg] A THENA ([facility]) Body weight 268.3 [lb_av] 268.3 [lb_av] RADHA ([facility]) Diastolic blood pressure 80 mm[Hg] 80 mm[Hg] RADHA ([facility]) Body height 66 [in_i] 66 [in_i] RADHA ([facility]) Body height 66 [in_i] 66 [in_i] RADHA ([facility]) Body mass index (BMI) [Ratio] 43.3 kg/m2 43.3 k g/m2 RADHA ([facility]) Systolic blood pressure 128 mm[Hg] 128 mm[Hg] A THENA ([facility]) Body weight 268.3 [lb_av] 268.3 [lb_av] RADHA ([facility]) Diastolic blood pressure 80 mm[Hg] 80 mm[Hg] RADHA ([facility]) Body height 66 [in_i] 66 [in_i] RADHA ([facility]) Body mass index (BMI) [Ratio] 43.3 kg/m2 43.3 k g/m2 RADHA ([facility]) Systolic blood pressure 128 mm[Hg] 128 mm[Hg] A THENA ([facility]) Body weight 268.3 [lb_av] 268.3 [lb_av] RADHA ([facility]) Body height 66 [in_i] 66 [in_i] RADHA ([facility]) Diastolic blood pressure 80 mm[Hg] 80 mm[Hg] RADHA ([facility]) Body height 66 [in_i] 66 [in_i] RADHA ([facility]) Body mass index (BMI) [Ratio] 43.3 kg/m2 43.3 k g/m2 RADAH ([facility]) Systolic blood pressure 128 mm[Hg] 128 mm[Hg] A THENA ([facility]) Body weight 268.3 [lb_av] 268.3 [lb_av] RADHA ([facility]) Diastolic blood pressure 80 mm[Hg] 80 mm[Hg] RADHA ([facility]) Body height 66 [in_i] 66 [in_i] RADHA ([facility]) Body mass index (BMI) [Ratio] 43.3 kg/m2 43.3 k g/m2 RADHA ([facility]) Systolic blood pressure 128 mm[Hg] 128 mm[Hg] A THENA ([facility]) Body weight 268.3 [lb_av] 268.3 [lb_av] RADHA ([facility]) Diastolic blood pressure 80 mm[Hg] 80 mm[Hg] RADHA ([facility]) Body height 66 [in_i] 66 [in_i] RADHA ([facility]) Body mass index (BMI) [Ratio] 43.3 kg/m2 43.3 k g/m2 RADHA ([facility]) Systolic blood pressure 128 mm[Hg] 128 mm[Hg] A THENA ([facility]) Body weight 268.3 [lb_av] 268.3 [lb_av] RADHA ([facility]) Diastolic blood pressure 80 mm[Hg] 80 mm[Hg] RADHA ([facility]) Body height 66 [in_i] 66 [in_i] RADHA ([facility]) Body mass index (BMI) [Ratio] 43.3 kg/m2 43.3 k g/m2 RADHA ([facility]) Systolic blood pressure 128 mm[Hg] 128 mm[Hg] A THENA ([facility]) Body weight 268.3 [lb_av] 268.3 [lb_av] RADHA ([facility]) Diastolic blood pressure 80 mm[Hg] 80 mm[Hg] RADHA ([facility]) Body height 66 [in_i] 66 [in_i] RADHA ([facility]) Body mass index (BMI) [Ratio] 43.3 kg/m2 43.3 k g/m2 RADHA ([facility]) Systolic blood pressure 128 mm[Hg] 128 mm[Hg] A THENA ([facility]) Body weight 268.3 [lb_av] 268.3 [lb_av] RADHA ([facility]) Body height 66 [in_i] 66 [in_i] RADHA ([facility]) Body height 66 [in_i] 66 [in_i] RADHA ([facility]) Body height 66 [in_i] 66 [in_i] RADHA ([facility]) Body height 66 [in_i] 66 [in_i] RADHA ([facility]) Systolic blood pressure 120 mm[Hg] 120 mm[Hg] M EDENT ([facility]) Diastolic blood pressure 80 mm[Hg] 80 mm[Hg] MEDENT ([facility]) Heart rate 76 /min 76 /min MEDENT ([facility]) Respiratory rate 16 /min 16 /min MEDENT ( [facility]) Diastolic blood pressure 87 mm[Hg] 87 mm[Hg] RADHA ([facility]) Body height 66 [in_i] 66 [in_i] RADHA ([facility]) Body weight 4144 [oz_av] 4144 [oz_av] RADHA ([facility]) Systolic blood pressure 132 mm[Hg] 132 mm[Hg] A THENA ([facility]) Body mass index (BMI) [Ratio] 41.8 kg/m2 41.8 k g/m2 RADHA ([facility]) Body weight 4144 [oz_av] 4144 [oz_av] RADHA ([facility]) Diastolic blood pressure 87 mm[Hg] 87 mm[Hg] RADHA ([facility]) Body height 66 [in_i] 66 [in_i] RADHA ([facility]) Body mass index (BMI) [Ratio] 41.8 kg/m2 41.8 k g/m2 RADHA ([facility]) Systolic blood pressure 132 mm[Hg] 132 mm[Hg] [facility] Diastolic blood pressure 87 mm[Hg] 87 mm[Hg] RADHA ([facility]) Body height 66 [in_i] 66 [in_i] RADHA ([facility]) Body mass index (BMI) [Ratio] 41.8 kg/m2 41.8 k g/m2 RADHA ([facility]) Systolic blood pressure 132 mm[Hg] 132 mm[Hg] A THENA ([facility]) Body weight 4144 [oz_av] 4144 [oz_av] RADHA ([facility]) Body mass index (BMI) [Ratio] 41.8 kg/m2 41.8 k g/m2 RADHA ([facility]) Systolic blood pressure 132 mm[Hg] 132 mm[Hg] [facility] Body weight 4144 [oz_av] 4144 [oz_av] RDAHA ([facility]) Diastolic blood pressure 87 mm[Hg] 87 mm[Hg] RADHA ([facility]) Body height 66 [in_i] 66 [in_i] RADHA ([facility]) Diastolic blood pressure 87 mm[Hg] 87 mm[Hg] RADHA ([facility]) Body height 66 [in_i] 66 [in_i] RADHA ([facility]) Body mass index (BMI) [Ratio] 41.8 kg/m2 41.8 k g/m2 RADHA ([facility]) Systolic blood pressure 132 mm[Hg] 132 mm[Hg] A THENA ([facility]) Body weight 4144 [oz_av] 4144 [oz_av] RADHA ([facility]) Diastolic blood pressure 87 mm[Hg] 87 mm[Hg] RADHA ([facility]) Body height 66 [in_i] 66 [in_i] RADHA ([facility]) Body mass index (BMI) [Ratio] 41.8 kg/m2 41.8 k g/m2 RADHA ([facility]) Systolic blood pressure 132 mm[Hg] 132 mm[Hg] A THENA ([facility]) Body weight 4144 [oz_av] 4144 [oz_av] RADHA ([facility]) Body height 66 [in_i] 66 [in_i] RADHA ([facility]) Body mass index (BMI) [Ratio] 41.8 kg/m2 41.8 k g/m2 RADHA ([facility]) Systolic blood pressure 132 mm[Hg] 132 mm[Hg] [facility] Body weight 4144 [oz_av] 4144 [oz_av] RADHA ([facility]) Diastolic blood pressure 87 mm[Hg] 87 mm[Hg] RADHA ([facility]) Diastolic blood pressure 87 mm[Hg] 87 mm[Hg] RADHA ([facility]) Body height 66 [in_i] 66 [in_i] RADHA ([facility]) Body mass index (BMI) [Ratio] 41.8 kg/m2 41.8 k g/m2 RADHA ([facility]) Systolic blood pressure 132 mm[Hg] 132 mm[Hg] A THENA ([facility]) Body weight 4144 [oz_av] 4144 [oz_av] RADHA ([facility]) Diastolic blood pressure 87 mm[Hg] 87 mm[Hg] RADHA ([facility]) Body height 66 [in_i] 66 [in_i] RADHA ([facility]) Body mass index (BMI) [Ratio] 41.8 kg/m2 41.8 k g/m2 RADHA ([facility]) Systolic blood pressure 132 mm[Hg] 132 mm[Hg] A THENA ([facility]) Body weight 4144 [oz_av] 4144 [oz_av] RADHA ([facility]) Body temperature 96.4 [degF] 96.4 [degF] MEDENT ([facility]) Body temperature 97.5 [degF] 97.5 [degF] MEDENT ([facility]) Heart rate 76 /min 76 /min MEDENT ([facility]) Regular Respiratory rate 16 /min 16 /min MEDENT ( [facility] [facility]) Systolic blood pressure 122 mm[Hg] 122 mm[Hg] M EDENT ([facility]) sitting, large cuff Diastolic blood pressure 66 mm[Hg] 66 mm[Hg] MEDBISI ([facility]) sitting, large cuff Systolic blood pressure 124 mm[Hg] 124 mm[Hg] M MADDI ([facility]) sitting Diastolic blood pressure 66 mm[Hg] 66 mm[Hg] CALVIN ([facility]) sitting Body weight 253.00 [lb_av] 253.00 [lb_av] NAVIN T ([facility]) Body height 65.50 [in_i] 65.50 [in_i] CALVIN ([facility]) 5'5.50" Body mass index (BMI) [Ratio] 41.5 kg/m2 41.5 k g/m2 MEDBISI ([facility]) Diastolic blood pressure 72 mm[Hg] 72 mm[Hg] RADHA ([facility]) Body height 66 [in_i] 66 [in_i] RADHA ([facility]) Body mass index (BMI) [Ratio] 39.4 kg/m2 39.4 k g/m2 RADHA ([facility]) Systolic blood pressure 107 mm[Hg] 107 mm[Hg] [facility] Body weight 3910 [oz_av] 3910 [oz_av] RADHA ([facility]) Diastolic blood pressure 72 mm[Hg] 72 mm[Hg] RADHA ([facility]) Body height 66 [in_i] 66 [in_i] RADHA ([facility]) Body mass index (BMI) [Ratio] 39.4 kg/m2 39.4 k g/m2 RADHA ([facility]) Systolic blood pressure 107 mm[Hg] 107 mm[Hg] A THENA ([facility]) Body weight 3910 [oz_av] 3910 [oz_av] RADHA ([facility]) Body height 66 [in_i] 66 [in_i] RADHA ([facility]) Body mass index (BMI) [Ratio] 39.4 kg/m2 39.4 k g/m2 RADHA ([facility]) Diastolic blood pressure 72 mm[Hg] 72 mm[Hg] RADHA ([facility]) Systolic blood pressure 107 mm[Hg] 107 mm[Hg] A THENA ([facility]) Body weight 3910 [oz_av] 3910 [oz_av] RADHA ([facility]) Diastolic blood pressure 72 mm[Hg] 72 mm[Hg] RADHA ([facility]) Body height 66 [in_i] 66 [in_i] RADHA ([facility]) Body mass index (BMI) [Ratio] 39.4 kg/m2 39.4 k g/m2 RADHA ([facility]) Systolic blood pressure 107 mm[Hg] 107 mm[Hg] A THENA ([facility]) Body weight 3910 [oz_av] 3910 [oz_av] RADHA ([facility]) Diastolic blood pressure 72 mm[Hg] 72 mm[Hg] RADHA ([facility]) Body height 66 [in_i] 66 [in_i] RADHA ([facility]) Body mass index (BMI) [Ratio] 39.4 kg/m2 39.4 k g/m2 RADHA ([facility]) Systolic blood pressure 107 mm[Hg] 107 mm[Hg] A THENA ([facility]) Body weight 3910 [oz_av] 3910 [oz_av] RADHA ([facility]) Diastolic blood pressure 72 mm[Hg] 72 mm[Hg] RADHA ([facility]) Body height 66 [in_i] 66 [in_i] RADHA ([facility]) Body mass index (BMI) [Ratio] 39.4 kg/m2 39.4 k g/m2 RADHA ([facility]) Systolic blood pressure 107 mm[Hg] 107 mm[Hg] A THENA ([facility]) Body weight 3910 [oz_av] 3910 [oz_av] RADHA ([facility]) Diastolic blood pressure 72 mm[Hg] 72 mm[Hg] RADHA ([facility]) Body height 66 [in_i] 66 [in_i] RADHA ([facility]) Body mass index (BMI) [Ratio] 39.4 kg/m2 39.4 k g/m2 RADHA ([facility]) Systolic blood pressure 107 mm[Hg] 107 mm[Hg] A THENA ([facility]) Body weight 3910 [oz_av] 3910 [oz_av] RADHA ([facility]) Diastolic blood pressure 72 mm[Hg] 72 mm[Hg] RADHA ([facility]) Body height 66 [in_i] 66 [in_i] RADHA ([facility]) Body mass index (BMI) [Ratio] 39.4 kg/m2 39.4 k g/m2 RADHA ([facility]) Systolic blood pressure 107 mm[Hg] 107 mm[Hg] A THENA ([facility]) Body weight 3910 [oz_av] 3910 [oz_av] RADHA ([facility]) Diastolic blood pressure 72 mm[Hg] 72 mm[Hg] RADHA ([facility]) Body height 66 [in_i] 66 [in_i] RADHA ([facility]) Body mass index (BMI) [Ratio] 39.4 kg/m2 39.4 k g/m2 RADHA ([facility]) Systolic blood pressure 107 mm[Hg] 107 mm[Hg] A THENA ([facility]) Body weight 3910 [oz_av] 3910 [oz_av] RADHA ([facility]) Diastolic blood pressure 72 mm[Hg] 72 mm[Hg] RADHA ([facility]) Body height 66 [in_i] 66 [in_i] RADHA ([facility]) Body mass index (BMI) [Ratio] 39.4 kg/m2 39.4 k g/m2 RADHA ([facility]) Systolic blood pressure 107 mm[Hg] 107 mm[Hg] A THENA ([facility]) Body weight 3910 [oz_av] 3910 [oz_av] RADHA ([facility]) Diastolic blood pressure 72 mm[Hg] 72 mm[Hg] RADHA ([facility]) Body height 66 [in_i] 66 [in_i] RADHA ([facility]) Body mass index (BMI) [Ratio] 39.4 kg/m2 39.4 k g/m2 RADHA ([facility]) Systolic blood pressure 107 mm[Hg] 107 mm[Hg] A THENA ([facility]) Body weight 3910 [oz_av] 3910 [oz_av] RADHA ([facility]) Diastolic blood pressure 72 mm[Hg] 72 mm[Hg] RADHA ([facility]) Body height 66 [in_i] 66 [in_i] RADHA ([facility]) Body mass index (BMI) [Ratio] 39.4 kg/m2 39.4 k g/m2 RADHA ([facility]) Systolic blood pressure 107 mm[Hg] 107 mm[Hg] A THENA ([facility]) Body weight 3910 [oz_av] 3910 [oz_av] RADHA ([facility]) Body height 65 [in_i] 65 [in_i] MEDENT ([facility] ) 5'5" Body weight 230.00 [lb_av] 230.00 [lb_av] MEDEN T ([facility] ) Body mass index (BMI) [Ratio] 38.3 kg/m2 38.3 k g/m2 MEDENT ([facility] ) Systolic blood pressure 110 mm[Hg] 110 mm[Hg] M EDENT ([facility] ) Diastolic blood pressure 80 mm[Hg] 80 mm[Hg] MEDENT ([facility] ) Heart rate 88 /min 88 /min MEDENT ([facility]) Respiratory rate 20 /min 20 /min MEDENT ( [facility] ) Patient Treatment Plan of Care Planned Activity Planned Date Details Description Data Source (s) pregabalin 75 MG Oral Capsule 12/11/2020 12:00:00 AM EDT RADHA ([facility]) pregabalin 50 MG Oral Capsule RADHA ([facility]) Metformin hydrochloride 500 MG Oral Tablet RADHA ([facility]) Ibuprofen 800 MG Oral Tablet RADHA ([facility]) gabapentin 800 MG Oral Tablet RADHA ([facility]) gabapentin 400 MG Oral Capsule RADHA ([facility]) duloxetine 20 MG Delayed Release Oral Capsule RADHA ([facility]) Cyclobenzaprine hydrochloride 5 MG Oral Tablet RADHA ([facility]) pregabalin 50 MG Oral Capsule RADHA ([facility]) Metformin hydrochloride 500 MG Oral Tablet RADHA ([facility]) Ibuprofen 800 MG Oral Tablet RADHA ([facility]) gabapentin 800 MG Oral Tablet RADHA ([facility]) gabapentin 400 MG Oral Capsule RADHA ([facility]) duloxetine 20 MG Delayed Release Oral Capsule RADHA ([facility] Cyclobenzaprine hydrochloride 5 MG Oral Tablet RADHA ([facility]) Metformin hydrochloride 500 MG Oral Tablet RADHA ([facility]) Ibuprofen 800 MG Oral Tablet RADHA ([facility]) gabapentin 800 MG Oral Tablet RADHA ([facility]) gabapentin 400 MG Oral Capsule RADHA ([facility]) duloxetine 20 MG Delayed Release Oral Capsule RADHA ([facility]) Cyclobenzaprine hydrochloride 5 MG Oral Tablet RADHA ([facility]) pregabalin 50 MG Oral Capsule RADHA ([facility]) Metformin hydrochloride 500 MG Oral Tablet RADHA ([facility] Ibuprofen 800 MG Oral Tablet RADHA ([facility]) gabapentin 800 MG Oral Tablet RADHA ([facility]) gabapentin 400 MG Oral Capsule RADHA ([facility]) duloxetine 20 MG Delayed Release Oral Capsule RADHA ([facility]) Cyclobenzaprine hydrochloride 5 MG Oral Tablet RADHA ([facility]) pregabalin 50 MG Oral Capsule RADHA ([facility]) 24 HR Nicotine 0.875 MG/HR Transdermal Patch RADHA ([facility]) Metformin hydrochloride 500 MG Oral Tablet RADHA ([facility]) gabapentin 800 MG Oral Tablet RADHA ([facility]) gabapentin 400 MG Oral Capsule RADHA ([facility]) duloxetine 20 MG Delayed Release Oral Capsule RADHA ([facility]) Cyclobenzaprine hydrochloride 5 MG Oral Tablet RADHA ([facility]) pregabalin 50 MG Oral Capsule RADHA ([facility]) Metformin hydrochloride 500 MG Oral Tablet RADHA ([facility]) Ibuprofen 800 MG Oral Tablet RADHA ([facility]) gabapentin 800 MG Oral Tablet RADHA ([facility]) gabapentin 400 MG Oral Capsule RADHA ([facility]) duloxetine 20 MG Delayed Release Oral Capsule RADHA ([facility]) Cyclobenzaprine hydrochloride 5 MG Oral Tablet RADHA ([facility]) pregabalin 50 MG Oral Capsule RADHA ([facility]) Metformin hydrochloride 500 MG Oral Tablet RADHA ([facility]) Ibuprofen 800 MG Oral Tablet RADHA ([facility]) gabapentin 800 MG Oral Tablet RADHA ([facility]) gabapentin 400 MG Oral Capsule RADHA ([facility]) duloxetine 20 MG Delayed Release Oral Capsule RADHA ([facility]) Cyclobenzaprine hydrochloride 5 MG Oral Tablet RADHA ([facility]) pregabalin 50 MG Oral Capsule RADHA ([facility]) Metformin hydrochloride 500 MG Oral Tablet RADHA ([facility]) gabapentin 800 MG Oral Tablet RADHA ([facility]) gabapentin 400 MG Oral Capsule RADHA ([facility]) duloxetine 20 MG Delayed Release Oral Capsule RADHA ([facility]) Cyclobenzaprine hydrochloride 5 MG Oral Tablet RADHA ([facility]) pregabalin 50 MG Oral Capsule RADHA ([facility]) Metformin hydrochloride 500 MG Oral Tablet RADHA ([facility]) gabapentin 800 MG Oral Tablet RADHA ([facility]) gabapentin 400 MG Oral Capsule RADHA ([facility]) duloxetine 20 MG Delayed Release Oral Capsule RADHA ([facility]) Cyclobenzaprine hydrochloride 5 MG Oral Tablet RADHA ([facility]) pregabalin 50 MG Oral Capsule RADHA ([facility]) Metformin hydrochloride 500 MG Oral Tablet RADHA ([facility]) gabapentin 800 MG Oral Tablet RADHA ([facility]) gabapentin 400 MG Oral Capsule RADHA ([facility]) duloxetine 20 MG Delayed Release Oral Capsule RADHA ([facility]) Cyclobenzaprine hydrochloride 5 MG Oral Tablet RADHA ([facility]) pregabalin 50 MG Oral Capsule RADHA ([facility]) Metformin hydrochloride 500 MG Oral Tablet RADHA ([facility]) gabapentin 800 MG Oral Tablet RADHA ([facility]) gabapentin 400 MG Oral Capsule RADHA ([facility]) duloxetine 20 MG Delayed Release Oral Capsule RADHA ([facility]) Cyclobenzaprine hydrochloride 5 MG Oral Tablet RADHA ([facility]) pregabalin 50 MG Oral Capsule RADHA ([facility]) Metformin hydrochloride 500 MG Oral Tablet RADHA ([facility]) gabapentin 800 MG Oral Tablet RADHA ([facility]) gabapentin 400 MG Oral Capsule RADHA ([facility]) duloxetine 20 MG Delayed Release Oral Capsule RADHA ([facility]) Cyclobenzaprine hydrochloride 5 MG Oral Tablet RADHA ([facility]) pregabalin 50 MG Oral Capsule RADHA ([facility]) Metformin hydrochloride 500 MG Oral Tablet RADHA ([facility]) gabapentin 800 MG Oral Tablet RADHA ([facility]) gabapentin 400 MG Oral Capsule RADHA ([facility]) duloxetine 20 MG Delayed Release Oral Capsule RADHA ([facility]) Cyclobenzaprine hydrochloride 5 MG Oral Tablet RADHA ([facility]) pregabalin 50 MG Oral Capsule RADHA ([facility]) Ibuprofen 800 MG Oral Tablet RADHA ([facility]) gabapentin 800 MG Oral Tablet RADHA ([facility]) gabapentin 400 MG Oral Capsule RADHA ([facility]) duloxetine 20 MG Delayed Release Oral Capsule RADHA ([facility]) Cyclobenzaprine hydrochloride 5 MG Oral Tablet RADHA ([facility]) pregabalin 50 MG Oral Capsule RADHA ([facility]) Metformin hydrochloride 500 MG Oral Tablet RADHA ([facility]) gabapentin 800 MG Oral Tablet RADHA ([facility]) gabapentin 400 MG Oral Capsule RADHA ([facility]) duloxetine 20 MG Delayed Release Oral Capsule RADHA ([facility]) Cyclobenzaprine hydrochloride 5 MG Oral Tablet RADHA ([facility]) pregabalin 50 MG Oral Capsule RADHA ([facility]) Ibuprofen 800 MG Oral Tablet RADHA ([facility]) gabapentin 800 MG Oral Tablet RADHA ([facility]) gabapentin 400 MG Oral Capsule RADHA ([facility]) pregabalin 50 MG Oral Capsule RADHA ([facility] Ibuprofen 800 MG Oral Tablet RADHA ([facility]) gabapentin 800 MG Oral Tablet RADHA ([facility]) gabapentin 400 MG Oral Capsule RADHA ([facility]) duloxetine 20 MG Delayed Release Oral Capsule RADHA ([facility]) Cyclobenzaprine hydrochloride 5 MG Oral Tablet RADHA ([facility]) pregabalin 50 MG Oral Capsule RADHA ([facility]) Ibuprofen 800 MG Oral Tablet RADHA ([facility]) gabapentin 800 MG Oral Tablet RADHA ([facility]) gabapentin 400 MG Oral Capsule RADHA ([facility]) Cyclobenzaprine hydrochloride 5 MG Oral Tablet RADHA ([facility]) pregabalin 50 MG Oral Capsule RADHA ([facility]) Ibuprofen 800 MG Oral Tablet RADHA ([facility]) gabapentin 800 MG Oral Tablet RADHA ([facility]) gabapentin 400 MG Oral Capsule RADHA ([facility] Cyclobenzaprine hydrochloride 5 MG Oral Tablet RADHA ([facility]) pregabalin 50 MG Oral Capsule RADHA ([facility]) Ibuprofen 800 MG Oral Tablet RADHA ([facility]) gabapentin 800 MG Oral Tablet RADHA ([facility]) gabapentin 400 MG Oral Capsule RADHA ([facility]) Cyclobenzaprine hydrochloride 5 MG Oral Tablet RADHA ([facility]) pregabalin 50 MG Oral Capsule RADHA ([facility])
--- OUTSIDE RECORDS SUMMARY | 2021-03-01 20:06 | CCD ---
Author Author [facility] Organization [facility] Address Unknown Phone Unavailable Care Team Providers Care Mechanical Systems Control Engineer Name Role Phone Dayron Fleming MD Unavailable [...] Unavailable Dayron Fleming MD Unavailable Unavailable Dayron Flemnig MD Unavailable Unavailable Dayron Fleming MD Unavailable [...] Unavailable Unavailable Dayron Fleming MD Unavailable Unavailable aDyron Fleming MD Unavailable Unavailable Dayron Fleming MD [...] Dayron Fleming MD Unavailable Unavailable Karoline Messer TIER OVER Unavailable Unavailable PHYSICIAN, OTHER Unavailable Unavailable BALJIT, [...] Barratt PA Unavailable Unavailable Jumalon, M Aure TIER OVER Unavailable Unavailable Jumalon, M Aure TIER OVER Unavailable Unavailable Jumalon, M Aure TIER OVER Unavailable Unavailable Jumalon, M Aure TIER OVER Unavailable Unavailable Jumalon, M Aure TIER OVER Unavailable Unavailable Jumalon, M Aure TIER OVER Unavailable Unavailable Jumalon, M Aure TIER OVER Unavailable Unavailable Jumalon, M Aure TIER OVER Unavailable Unavailable Jumalon, M Aure TIER OVER Unavailable Unavailable Jumalon, M Aure TIER OVER Unavailable Unavailable Jumalon, M Aure TIER OVER Unavailable Unavailable Jumalon, M Aure TIER OVER Unavailable Unavailable Jumalon, M Aure TIER OVER Unavailable Unavailable Jumalon, M Aure TIER OVER Unavailable Unavailable Jumalon, M Aure TIER OVER Unavailable Unavailable Jumalon, M Aure TIER OVER Unavailable Unavailable Jumalon, M Aure TIER OVER Unavailable Unavailable Jumalon, M Aure TIER OVER Unavailable Unavailable Jumalon, M Aure TIER OVER Unavailable Unavailable Jumalon, M Aure TIER OVER Unavailable Unavailable Jumalon, M Aure TIER OVER Unavailable Unavailable Jumalon, M Aure TIER OVER Unavailable Unavailable Jumalon, M Aure TIER OVER Unavailable Unavailable Jumalon, M Aure TIER OVER Unavailable Unavailable Jumalon, M Aure TIER OVER Unavailable Unavailable Jumalon, M Aure TIER OVER Unavailable Unavailable Jumalon, M Aure TIER OVER Unavailable Unavailable Jumalon, M Aure TIER OVER Unavailable Unavailable Jumalon, M Aure TIER OVER Unavailable Unavailable Jumalon, M Aure TIER OVER Unavailable Unavailable ELIZONDO, TAE TIER OVER Unavailable Unavailable ELIZONDO, TAE TIER OVER Unavailable Unavailable ELIZONDO, TAE TIER OVER Unavailable Unavailable ELIZONDO, TAE TIER OVER Unavailable Unavailable BALJIT, M CASANDRA PA Unavailable [...] US, SAMIRA KEVIN RPA-C Unavailable Unavailable US, ASMIRA KEVIN RPA-C Unavailable Unavailable US, SAMIRA KEVIN [...] Katie PA Unavailable Unavailable David, A Lo TIER OVER Unavailable Unavailable Lincoln, A Lo TIER OVER Unavailable Unavailable Lincoln, A Lo TIER OVER Unavailable Unavailable Lincoln, A Lo TIER OVER Unavailable Unavailable Lincoln, A Lo TIER OVER Unavailable Unavailable Lincoln, A Lo TIER OVER Unavailable Unavailable Lincoln, A Lo TIER OVER Unavailable Unavailable Lincoln, A Lo TIER OVER Unavailable Unavailable Lincoln, A Lo TIER OVER Unavailable Unavailable Lincoln, A Lo TIER OVER Unavailable Unavailable Lincoln, A Lo TIER OVER Unavailable Unavailable Lincoln, A Lo TIER OVER Unavailable Unavailable Lincoln, A Lo TIER OVER Unavailable Unavailable Lincoln, A Lo TIER OVER Unavailable Unavailable Lincoln, A Lo TIER OVER Unavailable Unavailable Lincoln, A Lo TIER OVER Unavailable Unavailable Lincoln, A Lo TIER OVER Unavailable Unavailable Lincoln, A Lo TIER OVER Unavailable Unavailable Lincoln, A Lo TIER OVER Unavailable Unavailable Lincoln, A Lo TIER OVER Unavailable Unavailable Lincoln, A Lo TIER OVER Unavailable Unavailable Lincoln, A Lo TIER OVER Unavailable Unavailable Lincoln, A Lo TIER OVER Unavailable Unavailable Lincoln, A Lo TIER OVER Unavailable Unavailable Lincoln, A Lo TIER OVER Unavailable Unavailable Lincoln, A Lo TIER OVER Unavailable Unavailable Lincoln, A Lo TIER OVER Unavailable Unavailable Lincoln, A Lo TIER OVER Unavailable Unavailable Lincoln, A Lo TIER OVER Unavailable Unavailable Lincoln, A Lo TIER OVER Unavailable Unavailable Lincoln, A Lo TIER OVER Unavailable Unavailable DRAZEK, I MICHAEL PA Unavailable [...] Unavailable DRAZEK, I MICHAEL PA Unavailable Unavailable BUNKER, R CATHERINE PA [...] Unavailable BUNKER, R CATHERINE PA Unavailable Unavailable [id number], [id number] Unavailable [phone] Re-disclosure Warning The records that you are [...] is protected by Article 27-F of the [facility] Public Health law. If you continue you may have access to information: Regarding HIV / AIDS; Provided by facilities licensed or operated by the [facility] Office of Mental Health; or Provided by the [place] Office for People With Developmental Disabilities. If such information is present, then the following [facility] mandated warning applies: This information has been [...] law may result in a fine or penitentiary sentence or both. A general authorization for the release of medical or other information is NOT sufficient authorization for further disc losure. Family History Family Member Name Family Member Gender Family Member Status Date o f Status Description Data Source(s) Unknown Male Problem MEDENT ([facility]) Encounters Encounter Providers Location Date Indications Data Source(s ) Yuliya Penaloza RD: [address] [place] [id number], Ph. Attender: [id number] [facility] Medical 02/22/2021 12:00:00 AM EDT RADHA ([facility]) Outpatient Attender: Lew ROMERO 02/08/20 09:42:05 AM EDT - 02/07/2021 10:29:27 AM EDT Docu[facility]ap ([facility] ) Outpatient Attender: Katie ROMERO Main Office 02/06/2021 02:00:00 PM EDT MEDENT ([facility]) Outpatient Attender: Neva ROMERO Main office [facility] 02/05/2021 11:45:00 AM EDT MEDENT ([facility]) Outpatient Attender: MICHAEL ROMERO Physical Therapy 01/29/2021 0 8:30:00 AM EDT MEDENT ([facility]) Jeanmarie Fleming MD: [address] [place] [phone], Ph. Attender: Jeanmarie Fleming MD [facility] Medical 01/23/2021 12:00:00 AM EDT RADHA ([facility]) Jeanmarie Fleming MD: [address] [place] [phone], Ph. Attender: Jeanmarie Fleming MD [facility] Medical 01/23/2021 12:00:00 AM EDT [place] ([facility]) Lo Hernandez [facility]: [address], [place] [address], Ph. Attender: Lo Hernandez [facility] Medical 01/03/2021 12:00:00 AM EDT [place] ([facility]) Lo Hernandez [facility]: [address], [place] [address], Ph. Attender: Lo Hernandez [facility] Medical 01/03/2021 12:00:00 AM EDT [place] ([facility]) Lo Hernandez [facility]: [address], [place] [address], Ph. Attender: Lo Hernandez [facility] Medical 01/03/2021 12:00:00 AM EDT [place] ([facility]) Lo Hernandez [facility]: [address], [place] [address], Ph. Attender: Lo Hernandez [facility] Medical 01/03/2021 12:00:00 AM EDT [place] ([facility]) Kevin Us RPA-C: [address], [place] [address], Ph. Attender: KEVIN US RPA-C [facility] Medical 12/11/2020 12:00:00 AM EDT RADHA ([facility]) CHAPITO IgnacioC: [address], [place] [address], Ph. Attender: KEVIN GATICA [facility] Medical 12/11/2020 12:00:00 AM EDT RADHA ([facility]) Kevin Us RPA-C: [address], [place] [address], Ph. Attender: KEVIN US RPA-C [facility] Medical 12/11/2020 12:00:00 AM EDT RADHA ([facility]) Kevin Us RPA-C: [address], [place] [address], Ph. Attender: KEVIN GATICA [facility] Medical 12/11/2020 12:00:00 AM EDT RADHA ([facility]) Aure Grigsbyjayjohn, PENETRATION TESTER: [address], [place] [address], Ph. Attender: Aure Nayak [facility] - Main Office 12/11/2020 12:00:00 AM EDT AMANDEEP CALI ([facility]) [facility] [address] [place] [address], Ph. Attender: Lo Hernandez [facility] Medical 11/29/2020 12:00:00 AM EDT RADHA ([facility]) REGULO Hanson: [address], [place] [address], Ph. Attender: Lo Hernandez [facility] Medical 11/29/2020 12:00:00 AM EDT RADHA ([facility]) Lo Hernandez [facility]: [address], [place] [address], Ph. Attender: Lo Hernandez [facility] Medical 11/29/2020 12:00:00 AM EDT RADHA ([facility]) Lo Hernandez [facility]: [address], [place] [address], Ph. Attender: Lo Hernandez [facility] Medical 11/29/2020 12:00:00 AM EDT RADHA ([facility]) Lo Hernandez [facility]: [address], [place] [address], Ph. Attender: Lo Hernandez [facility] Medical 11/29/2020 12:00:00 AM EDT [place] ([facility]) OFFICE OUTPATIENT VISIT 15 MINUTES Attender: Alexis ROMERO Physical Therapy 11/28/2020 08:30:00 AM EDT CALVIN ([facility] ) Lo Hernandez [facility]: [address], [place] [address], Ph. Attender: Lo Hernandez [facility] Medical 11/22/2020 12:00:00 AM EDT RADHA ([facility]) Lo Hernandez [facility]: [address], [place] [address], Ph. Attender: Lo Hernandez [facility] Medical 11/22/2020 12:00:00 AM EDT RADHA ([facility]) Lo Hernandez [facility]: [address], [place] [address], Ph. Attender: Lo RDZ [facility] Medical 11/22/2020 12:00:00 AM EDT RADHA ([facility]) [facility] [address], [place] [address], Ph. [facility]ender: [facility] 11/22/2020 12:00:00 AM EDT RADHA ([facility]) Anam Esquivel MD: [address], [place] [address], Ph. Attender: Anam Esquivel MD [place] - [facility] - Main Office 11/22/2020 12:00:00 AM EDT RADHA ([facility]) [facility] [address], [place] [address], Ph. [facility]ender: [facility] 11/22/2020 12:00:00 AM EDT RADAH ([facility]) [facility] [address], [place] [address], Ph. Attender: [facility] 11/22/2020 12:00:00 AM EDT RADHA ([facility]) Anam Esquivel MD: [address], [place] [address], Ph. Attender: Anam Esquivel MD [place] - [facility] - [facility] Office 11/22/2020 12:00:00 AM EDT RADHA ([facility]) Outpatient Attender: TAE ELIZONDO [facility] 08:20:25 AM EDT - 11/20/2020 08:55:28 AM EDT [facility] ([facility]) Anam Esquivel MD: [address], [place] [address], Ph. [phone] Attender: Anam BUCKLEY - [facility] 11/19/2020 12:00:00 AM EDT RADHA ([facility]) Anam Esquivel MD: [address], [place] [address], Ph. [phone] Attender: Anam BUCKLEY - [facility] 11/19/2020 12:00:00 AM EDT RADHA ([facility]) Anam Esquivel MD: [address], [place] [address], Ph. [phone] Attender: Anam BUCKLEY - [facility] 11/19/2020 12:00:00 AM EDT RADHA ([facility]) Anam Esquivel MD: [address], [place] [address], Ph. Attender: Anam BUCKLEY - [facility] 10/31/2020 12:00:00 AM EDT RADHA ([facility]) Anam Esquivel MD: [address], [place] [address], Ph. Attender: Anam BUCKLEY - [facility] 10/31/2020 12:00:00 AM EDT RADHA ([facility]) Anam Esquivel MD: [address], [place] [address], Ph. Attender: Anam BUCKLEY - [facility] 10/31/2020 12:00:00 AM EDT RADHA ([facility]) Anam Esquivel MD: [address], [place] [address], Ph. Attender: Anam Esquivel MD [place] - [facility] - [facility] 10/31/2020 12:00:00 AM EDT RADHA ([facility]) Anam Esquivel MD: [address], [place] [address], Ph. [phone] Attender: Anam Esquivel MD [place] - [facility] - [facility] 10/26/2020 12:00:00 AM EDT RADHA ([facility]) Anam Esquivel MD: [address], [place] [address], Ph. [phone] Attender: Anam Esquivel MD [place] - [facility] 10/26/2020 12:00:00 AM EDT RADHA ([facility]) Anam Esquivel MD: [address], [place] [address], Ph. [phone] Attender: Anam Esquivel MD [place] - [facility] 10/26/2020 12:00:00 AM EDT RADHA ([facility]) Anam Esquivel MD: [address], [place] [address], Ph. [phone] Attender: Anam Esquivel MD [place] - [facility] 10/26/2020 12:00:00 AM EDT RADHA ([facility]) Anam Esquivel MD: [address], [place] [address], Ph. [phone] Attender: Anam Esquivel MD [place] - [facility] 10/26/2020 12:00:00 AM EDT RADHA ([facility]) Anam Esquivel MD: [address], [place] [address], Ph. Attender: Anam Esquivel MD [place] - [facility] 10/18/2020 12:00:00 AM EDT RADHA ([facility]) Anam Esquivel MD: [address], [place] [address], Ph. Attender: Anam Esquivel MD [place] - [facility] 10/18/2020 12:00:00 AM EDT RADHA ([facility]) Anam Esquivel MD: [address], [place] [address], Ph. Attender: Anam BUCKLEY - [facility] 10/18/2020 12:00:00 AM EDT RADHA ([facility]) Anam Esquivel MD: [address], [place] [address], Ph. Attender: Anam BUCKLEY - [facility] 10/18/2020 12:00:00 AM EDT RADHA ([facility]) Anam Esquivel MD: [address], [place] [address], Ph. Attender: Anam BUCKLEY - [facility] 10/18/2020 12:00:00 AM EDT RADHA ([facility]) Anam Esquivel MD: [address], [address], [place] [address], Ph. Attender: Anam BUCKLEY - [facility] 10/18/2020 12:00:00 AM EDT RADHA ([facility]) Outpatient Attender: Alexis ROMERO Physical Therapy 08:45:00 AM EDT MEDENT ([facility]) Anam Esquivel MD: [address], [place] [address], Ph. [phone] Attender: Anam Esquivel MD [place] - [facility] Office 10/15/2020 12:00:00 AM EDT RADHA ([facility]) Anam Esquivel MD: [address], [place] [address], Ph. [phone] Attender: Anam Esquivel MD [place] - [facility] 10/15/2020 12:00:00 AM EDT RADHA ([facility]) Anam Esquivel MD: [address], [place] [address], Ph. [phone] Attender: Anam Esquivel MD [place] - [facility] 10/15/2020 12:00:00 AM EDT RADHA ([facility]) Anam Esquivel MD: [address], [place] [address], Ph. [phone] Attender: Anam Esquivel MD [place] - [facility] 10/15/2020 12:00:00 AM EDT RADHA ([facility]) Anam Esquivel MD: [address], [place] [address], Ph. [phone] Attender: Anam Esquivel MD [place] - [facility] 10/15/2020 12:00:00 AM EDT RADHA ([facility]) Anam Esquivel MD: [address], [place] [address], Ph. [phone] Attender: Anam Esquivel MD [place] - [facility] Office 10/15/2020 12:00:00 AM EDT RADHA ([facility]) Anam Esquivel MD: [address] [facility] [address], [address], [place] [address], Ph. [phone] Attender: Anam Esquivel MD [facility] - Main Office 10/15/2020 12:00:00 AM EDT RADHA ([facility]) Lo Hernandez [facility]: [address], [place] [address], Ph. Attender: Lo Hernandez [facility] Medical 10/10/2020 12:00:00 AM EDT RADHA ([facility]) [facility] [address], [place] [address], Ph. Attender: Lo Hernandez [facility] Medical 10/10/2020 12:00:00 AM EDT RADHA ([facility]) [facility]: [address], [place] [address], Ph. Attender: Lo Hernandez [facility] Medical 10/10/2020 12:00:00 AM EDT [place] ([facility]) MARIN HansonPAnali: [address], [place] [address], Ph. Attender: Lo Hernandez [facility] Medical 10/10/2020 12:00:00 AM EDT RADHA ([facility]) [facility]: [address], [place] [address], Ph. Attender: Lo Hernandez [facility] Medical 10/10/2020 12:00:00 AM EDT RADHA ([facility]) KENDELL Hanson-BC: [address], [place] [address], Ph. Attender: Lo Hernandez [facility] Medical 10/10/2020 12:00:00 AM EDT RADHA ([facility]) Lo Hernandez [facility]: [address], [place] [address], Ph. Attender: Lo Hernandez [facility] Medical 10/10/2020 12:00:00 AM EDT RADHA ([facility]) Outpatient Attender: Katie ROMERO Main Office 10/08/2020 08:45:00 AM EDT [facility] ([facility]) Lo Hernandez [facility]: [address], [place] [address], Ph. Attender: Lo Hernandez [facility] Medical 10/02/2020 12:00:00 AM EDT RADHA ([facility]) Lo Hernandez [facility]: [address], [place] [address], Ph. Attender: Lo Hernandez [facility] Medical 10/02/2020 12:00:00 AM EDT RADHA ([facility]) Lo Hernandez [facility]: [address], [place] [address], Ph. Attender: Lo Hernandez [facility] Medical 10/02/2020 12:00:00 AM EDT RADHA ([facility]) Lo Hernandez [facility]: [address], [place] [address], Ph. Attender: Lo Hernandez [facility] Medical 10/02/2020 12:00:00 AM EDT [facility] ([facility]) Anam Esquivel MD: [address], [address], [place] [address], Ph. Attender: Anam Esquivel MD [place] - [facility] 10/02/2020 12:00:00 AM EDT RADHA ([facility]) [facility]: [address], [place] [address], Ph. Attender: Lo Hernandez [facility] Medical 10/02/2020 12:00:00 AM EDT [facility] ([facility]) [facility] [address], [place] [address], Ph. Attender: Lo Hernandez [facility] Medical 10/02/2020 12:00:00 AM EDT RADHA ([facility]) Anam Esquivel MD: [address], [address], [place] [address], Ph. Attender: Anam Esquivel MD [place] - [facility] 10/02/2020 12:00:00 AM EDT RADHA ([facility]) Anam Esquivel MD: [address], [address], [place] [address], Ph. Attender: Anam BUCKLEY - [facility] 10/02/2020 12:00:00 AM EDT RADHA ([facility]) Anam Esquivel MD: [address], [address], [place] [address], Ph. Attender: Anam BUCKLEY - [facility] - [facility] Office 10/02/2020 12:00:00 AM EDT RADHA ([facility]) Anam Esquivel MD: [address], [address], [place] [address], Ph. Attender: Anam Esquivel MD [place] - [facility] - [facility] Office 10/02/2020 12:00:00 AM EDT RADHA ([facility]) Anam Esquivel MD: [address], [address], [place] [address], Ph. Attender: Anam Esquivel MD [place] - [facility] - [facility] Office 10/02/2020 12:00:00 AM EDT RADHA ([facility]) Anam Esquivel MD: [address], [place] [address], Ph. Attender: Anam Esquivel MD [place] - [facility] - [facility] 10/02/2020 12:00:00 AM EDT RADHA ([facility]) [facility] [address] [place] [address], Ph. Attender: Lo RDZ [facility] Medical 10/02/2020 12:00:00 AM EDT RADHA ([facility]) Anam Esquivel MD: [address], [place] [address], Ph. Attender: Anam Esquivel MD [place] - [facility] 10/02/2020 12:00:00 AM EDT RADHA ([facility]) Outpatient Attender: Neva ROMERO [facility] 09/20/2020 02:30:00 PM EDT [facility] ([facility]) Outpatient Attender: Alexis ROMERO Physical Therapy 10:45:00 AM EDT MEDENT ([facility]) Jeanmarie Fleming MD: [address] [place] [address], Ph. Attender: Jeanmaire Fleming MD [facility] Medical 08/20/2020 12:00:00 AM EDT RAD[facility] ([facility]) Jeanmarie Fleming MD: [address] [place] [address], Ph. Attender: Jeanmarie Fleming MD [facility] Medical 08/20/2020 12:00:00 AM EDT RADHA ([facility]) Jeanmarie Fleming MD: [address] [place] [address], Ph. Attender: Jeanmarie Fleming MD [facility] Medical 08/20/2020 12:00:00 AM EDT [facility] ([facility]) Jeanmarie Fleming MD: [address] [place] [address], Ph. Attender: Jeanmarie Fleming MD [facility] Medical 08/20/2020 12:00:00 AM EDT [facility] ([facility]) Jeanmarie Flmeing MD: [address] [place] [address], Ph. Attender: Jeanmarie Fleming MD [facility] Medical 08/20/2020 12:00:00 AM EDT [facility] ([facility]) Jeanmarie Fleming MD: [address] [place] [address], Ph. Attender: Jeanmarie Fleming MD [facility] Medical 08/20/2020 12:00:00 AM EDT [facility] ([facility]) Jeanmarie Fleming MD: [address] [place] [address], Ph. Attender: Jeanmarie Fleming MD [facility] Medical 08/20/2020 12:00:00 AM EDT [facility] ([facility]) Jeanmarie Fleming MD: [address] [place] [address], Ph. Attender: Jeanmarie Fleming MD [facility] Medical 08/20/2020 12:00:00 AM EDT [facility] ([facility]) Outpatient Attender: Matthew Bianchi MD Physical Therapy 07/16/2020 0 1:30:00 PM EDT [facility] ([facility]) Office Visit Attender: CASANDRA ROMERO Physical Therapy 08/2020 12:00:00 PM EST [facility] ([facility]) Office Visit Attender: Neva ROMERO Main office - [facility] 07/02/2020 07:30:00 AM EST [facility] ([facility]) Preadmit Attender: OTHER PHYSICIANConsultant: CATHERINE ROMERO 07/02/2020 12:11:00 AM [facility] Outpatient Attender: CASANDRA Lambert tender: OTHER PHYSICIANConsultant: CATHERINE ROMERO 06/06/2020 03:38:00 PM EST - 07/01/2020 12:00:00 AM [facility] Patient discharged. REGULO HansonBC: [address] [place] [address], Ph. Attender: Lo Hernandez [facility] Medical 05/31/2020 12:00:00 AM EST [facility] ([facility]) REGULO HansonBC: [address] [place] [address], Ph. Attender: Lo Hernandez [facility] Medical 05/31/2020 12:00:00 AM EST [facility] ([facility]) REGULO HansonBC: [address] [place] [address], Ph. Attender: Lo Hernandez [facility] Medical 05/31/2020 12:00:00 AM EST [facility] ([facility]) [facility] [address], [place] [address], Ph. Attender: Lo Hernandez [facility] Medical 05/31/2020 12:00:00 AM EST [facility] ([facility]) [facility] [address], [place] [address], Ph. Attender: Lo Hernandez [facility] Medical 05/31/2020 12:00:00 AM EST [facility] ([facility]) MARIN HansonPAnali: [address], [place] [address], Ph. Attender: Lo Hernandez [facility] Medical 05/31/2020 12:00:00 AM EST [facility] ([facility]) MARIN HansonPAnali: [address], [place] [address], Ph. Attender: Lo Hernandez [facility] Medical 05/31/2020 12:00:00 AM EST [facility] ([facility]) Lo Hernandez [facility]: [address], [place] [address], Ph. Attender: Lo Hernandez [facility] Medical 05/31/2020 12:00:00 AM EST [facility] ([facility]) MARIN HansonPAnali: [address], [place] [address], Ph. Attender: Lo Hernandez [facility] Medical 05/31/2020 12:00:00 AM EST [facility] ([facility]) Lo Hernandez [facility]: [address], [place] [address], Ph. Attender: Lo Hernandez [facility] Medical 05/23/2020 12:00:00 AM EST [facility] ([facility]) Lo Hernandez [facility]: [address], [place] [address], Ph. Attender: Lo Hernandez [facility] Medical 05/23/2020 12:00:00 AM EST [facility] ([facility]) Lo Hernandez [facility]: [address], [place] [address], Ph. Attender: Lo Hernandez [facility] Medical 05/23/2020 12:00:00 AM EST [facility] ([facility]) Lo Hernandez [facility]: [address], [place] [address], Ph. Attender: Lo Hernandez [facility] Medical 05/23/2020 12:00:00 AM EST [facility] ([facility]) Lo Hernandez [facility]: [address], [place] [address], Ph. Attender: Lo Hernandez [facility] Medical 05/23/2020 12:00:00 AM EST [facility] ([facility]) Lo Hernandez [facility]: [address], [place] [address], Ph. Attender: Lo Hernandez [facility] Medical 05/23/2020 12:00:00 AM EST [facility] ([facility]) Lo Hernandez [facility]: [address], [place] [address], Ph. Attender: Lo Hernandez [facility] Medical 05/23/2020 12:00:00 AM EST [facility] ([facility]) Lo Hernandez [facility]: [address], [place] [address], Ph. Attender: Lo Hernandez [facility] Medical 05/23/2020 12:00:00 AM EST [facility] ([facility]) Lo Hernandez [facility]: [address] [place] [address], Ph. Attender: Lo Hernandez [facility] Medical 05/23/2020 12:00:00 AM EST [facility] ([facility]) Lo Hernandez [facility]: [address] [place] [address], Ph. Attender: Lo Hernandez [facility] Medical 05/23/2020 12:00:00 AM EST [facility] ([facility]) Outpatient Attender: CASANDRA ROMERO Physical Therapy 05/04 12:45:00 PM EST [facility] ([facility]) Jeanmarie Fleming MD: [address] [place] [address], Ph. Attender: Jeanmarie Fleming MD [facility] Medical 05/03/2020 12:00:00 AM EST [facility] ([facility]) Jeanmarie Fleming MD: [address] [place] [address], Ph. Attender: Jeanmarie Fleming MD [facility] Medical 05/03/2020 12:00:00 AM EST [facility] ([facility]) Jeanmarie Fleming MD: [address] [place] [address], Ph. Attender: Jeanmarie Fleming MD [facility] Medical 05/03/2020 12:00:00 AM EST [facility] ([facility]) Jeanmarie Fleming MD: [address] [place] [address], Ph. Attender: Jeanmarie Fleming MD [facility] Medical 05/03/2020 12:00:00 AM EST [facility] ([facility]) Jeanmarie Fleming MD: [address] [place] [address], Ph. Attender: Jeanmarie Fleming MD [facility] Medical 05/03/2020 12:00:00 AM EST [facility] ([facility]) Jeanmarie Fleming MD: [address] [place] [address], Ph. Attender: Jeanmarie Fleming MD [facility] Medical 05/03/2020 12:00:00 AM EST [facility] ([facility]) Jeanmarie Fleming MD: [address] [place] [address], Ph. Attender: Jeanmarie Fleming MD [facility] Medical 05/03/2020 12:00:00 AM EST [facility] ([facility]) Jeanmarie Fleming MD: [address] [place] [address], Ph. Attender: Jeanmarie Fleming MD [facility] Medical 05/03/2020 12:00:00 AM EST [facility] ([facility]) Jeanmarie Fleming MD: [address] [place] [address], Ph. Attender: Jeanmarie Fleming MD [facility] Medical 05/03/2020 12:00:00 AM EST [facility] ([facility]) Jeanmarie Fleming MD: [address] [place] [address], Ph. Attender: Jeanmarie Fleming MD [facility] Medical 05/03/2020 12:00:00 AM EST [facility] ([facility]) Jeanmarie Fleming MD: [address] [place] [address], Ph. Attender: Jeanmarie Fleming MD [facility] Medical 05/03/2020 12:00:00 AM EST [facility] ([facility]) OFFICE OUTPATIENT VISIT 15 MINUTES Attender: CASANDRA ROMERO Ph ysical Therapy 04/10/2020 10:00:00 AM EST [facility] ([facility]) REGULO Hanson: [address], [place] [address], Ph. Attender: Lo Hernandez [facility] Medical 03/01/2020 12:00:00 AM EDT [facility] ([facility]) REGULO HansonBC: [address], [place] [address], Ph. Attender: Lo Hernandez [facility] Medical 03/01/2020 12:00:00 AM EDT [facility] ([facility]) REGULO Hanson: [address], [place] [address], Ph. Attender: Lo Hernandez [facility] Medical 03/01/2020 12:00:00 AM EDT [facility] ([facility]) REGULO HansonBC: [address], [place] [address], Ph. Attender: Lo Hernandez [facility] Medical 03/01/2020 12:00:00 AM EDT [facility] ([facility]) Lo Hernandez [facility]: [address], [place] [address], Ph. Attender: Lo Hernandez [facility] Medical 03/01/2020 12:00:00 AM EDT [facility] ([facility]) Lo Hernandez [facility]: [address], [place] [address], Ph. Attender: Lo Hernandez [facility] Medical 03/01/2020 12:00:00 AM EDT [place] ([facility]) Lo Hernandez [facility]: [address], [place] [address], Ph. Attender: Lo Hernandez [facility] Medical 03/01/2020 12:00:00 AM EDT [place] ([facility]) Lo Hernandez [facility]: [address], [place] [address], Ph. Attender: Lo Hernandez [facility] Medical 03/01/2020 12:00:00 AM EDT [facility] ([facility]) Lo Hernandez [facility]: [address], [place] [address], Ph. Attender: Lo Hernandez [facility] Medical 03/01/2020 12:00:00 AM EDT [place] ([facility]) Lo Hernandez [facility]: [address], [place] [address], Ph. Attender: Lo RDZ [facility] Medical 03/01/2020 12:00:00 AM EDT [facility]) [facility] [address], [place] [address], Ph. [facility]: [facility] 03[facility]01/2020 12:00:00 AM EDT [facility]) [facility] [address], [place] [address], Ph. [facility] 03/01/2020 12:00:00 AM EDT [place] ([facility]) Outpatient Attender: KENDELL RDZ 02/22/2020 03:12:01 PM EDT [facility] OFFICE OUTPATIENT VISIT 15 MINUTES Attender: CASANDRA ROMERO Ph ysical Therapy 02/03/2020 10:00:00 AM EDT [facility] ([facility]) OFFICE OUTPATIENT VISIT 15 MINUTES Attender: CASANDRA ROMERO Ph ysical Therapy 01/13/2020 09:30:00 AM EDT [facility] ([facility]) Outpatient Attender: Neva ROMERO Main office - [facility] 01/03/2020 08:30:00 AM EDT [facility] ([facility]) Immunizations Vaccine Date Status Description Data Source(s) COVID-19, mRNA, LNP-S, PF, 30 mcg/0.3 mL dose 01/15/2021 12: 00:00 AM EDT completed 01/15/2021 [place] ([facility]) COVID-19, mRNA, LNP-S, PF, 30 mcg/0.3 mL dose 01/15/2021 12: 00:00 AM EDT completed 01/15/2021 [place] ([facility]) COVID-19 VACCINE Pfizer 01/15/2021 12:00:00 AM EDT completed [facility] Vaccine Series Complete: YESThis Data wa s Submitted to [facility] [employer]. COVID-19, mRNA, LNP-S, PF, 30 mcg/0.3 mL dose 12/25/2020 12: 00:00 AM EDT completed 12/25/2020 [place] ([facility]) COVID-19, mRNA, LNP-S, PF, 30 mcg/0.3 mL dose 12/25/2020 12: 00:00 AM EDT completed 12/25/2020 [facility] ([facility]) COVID-19 VACCINE Pfizer 12/25/2020 12:00:00 AM EDT completed [facility] Vaccine Series Complete: NOThis Data was Submitted to [facility] [employer]. Medications Medication Brand Name Start Date Product Form Dose Route Admi nistrative Instructions Pharmacy Instructions Status Indications Reaction Description Data Source(s) Diclofenac Sodium 0.01 MG/MG Topical Gel [Voltaren] Voltaren 02/05/2021 12:00:00 AM EDT active [facility] ([facility]) pregabalin 75 MG Oral Capsule Pregabalin 02/05/2021 12:00:00 AM EDT ORAL active [facility] ([facility]) 24 HR Nicotine 0.292 MG/HR Transdermal Patch [Nicoderm C-Q] Nicoderm CQ 02/05/2021 12:00:00 AM EDT active [facility] ([facility]) pregabalin 75 MG Oral Capsule pregabalin 75 mg capsule prega balin 75 mg capsule 12/11/2020 12:00:00 AM EDT completed pregabalin 75 MG Oral Capsule [facility] ([facility]) Cyclobenzaprine hydrochloride 5 MG Oral Tablet Cyclobenzapri ne HCL 07/16/2020 12:00:00 AM EDT ORAL active M [facility] ([facility] ) pregabalin 75 MG Oral Capsule Pregabalin 07/06/2020 12:00:00 AM EST ORAL active [facility] ([facility] ) duloxetine 60 MG Delayed Release Oral Capsule [Cymbalta] Cym harika 04/10/2020 12:00:00 AM EST ORAL active M [facility] ([facility] ) pregabalin 75 MG Oral Capsule Pregabalin 04/04/2020 12:00:00 AM EST ORAL active [facility] ([facility]) pregabalin 75 MG Oral Capsule Pregabalin 01/19/2020 12:00:00 AM EDT ORAL completed [facility] ([facility] pregabalin 50 MG Oral Capsule Pregabalin 11/18/2019 12:00:00 AM EDT ORAL completed [facility] ([facility] Metformin hydrochloride 500 MG Oral Tabl et metformin 500 mg tablet Take 1 tablet twice a day by oral route. metformin 500 mg tablet Take 1 tablet tw ice a day by oral route. 1 completed m etformin hydrochloride 500 MG Oral Tablet [facility] ([facility]) Metformin hydrochloride 500 MG Oral Tabl et metformin 500 mg tablet Take 1 tablet every day by oral route. metformin 500 mg tablet Take 1 tablet ev franklin day by oral route. 1 completed me tformin hydrochloride 500 MG Oral Tablet [facility] ([facility]) gabapentin 400 MG Oral Capsule gabapentin 400 mg capsu le gabapentin 400 mg capsule completed gabapentin 400 MG Oral Capsule [facility] ([facility]) Ibuprofen 800 MG Oral Tablet ibuprofen 800 mg tablet ibuprofen 8 00 mg tablet completed ibuprofen 800 MG Oral Tablet [facility] ([facility]) pregabalin 50 MG Oral Capsule pregabalin 50 mg capsule prega balin 50 mg capsule completed pregabalin 50 MG Oral Capsule [facility] ([facility]) Cyclobenzaprine hydrochloride 5 MG Oral Tablet cyclobenzaprine 5 mg tablet TAKE TWO TABLETS BY MOUTH TWICE A DAY cyclobenzaprine 5 mg tablet TAKE TWO TAB LETS BY MOUTH TWICE A DAY completed cyclobenzaprine hydrochloride 5 MG Oral Tablet [facility] ([facility]) gabapentin 400 MG Oral Capsule gabapenti n 400 mg capsule TAKE ONE CAPSULE BY MOUTH THREE TIMES A DAY IN ADDITION TO 800MG gabapentin 400 mg capsule TAKE ONE CAPSULE BY MOUTH THREE TIMES A DAY IN ADDITION TO 800MG completed gabapentin 400 MG Oral Capsule [facility] ([facility]) Cyclobenzaprine hydrochloride 5 MG Oral Tablet cyclobenzaprine 5 mg tablet TAKE TWO TABLETS BY MOUTH TWICE A DAY cyclobenzaprine 5 mg tablet TAKE TWO TAB LETS BY MOUTH TWICE A DAY completed cyclobenzaprine hydrochloride 5 MG Oral Tablet [facility] ([facility]) Cyclobenzaprine hydrochloride 5 MG Oral Tablet cyclobenzaprine 5 mg tablet TAKE TWO TABLETS BY MOUTH TWICE A DAY cyclobenzaprine 5 mg tablet TAKE TWO TAB LETS BY MOUTH TWICE A DAY completed cyclobenzaprine hydrochloride 5 MG Oral Tablet [facility] ([facility]) duloxetine 20 MG Delayed Release Oral Ca psule duloxetine 20 mg capsule,delayed release TAKE TWO CAPSULES BY MOUTH EVERY MORNING duloxetine 20 mg capsule,delayed release TAKE TWO CAPSULES BY MOUTH EVERY MORNING completed duloxetine 20 MG Delayed Release Oral Capsule [facility] ([facility]) gabapentin 400 MG Oral Capsule gabapentin 400 mg capsu le gabapentin 400 mg capsule completed gabapentin 400 MG Oral Capsule [facility] ([facility]) gabapentin 400 MG Oral Capsule gabapentin 400 mg capsu le gabapentin 400 mg capsule completed gabapentin 400 MG Oral Capsule [facility] ([facility]) gabapentin 400 MG Oral Capsule gabapentin 400 mg capsu le gabapentin 400 mg capsule completed gabapentin 400 MG Oral Capsule [facility] ([facility]) gabapentin 800 MG Oral Tablet gabapentin 800 mg tablet gabap entin 800 mg tablet completed gabapentin 800 MG Oral Tablet [facility] ([facility]) gabapentin 400 MG Oral Capsule gabapenti n 400 mg capsule TAKE ONE CAPSULE BY MOUTH THREE TIMES A DAY IN ADDITION TO 800MG gabapentin 400 mg capsule TAKE ONE CAPSULE BY MOUTH THREE TIMES A DAY IN ADDITION TO 800MG completed gabapentin 400 MG Oral Capsule [facility] ([facility]) gabapentin 800 MG Oral Tablet gabapentin 800 mg tablet TAKE ONE TABLET BY MOUTH THREE TIMES A DAY gabapentin 800 mg tablet TAKE ONE TABLET BY MOUTH THREE TIMES A DAY completed gabapentin 800 M G Oral Tablet [facility] ([facility]) duloxetine 20 MG Delayed Release Oral Ca psule duloxetine 20 mg capsule,delayed release TAKE TWO CAPSULES BY MOUTH EVERY MORNING duloxetine 20 mg capsule,delayed release TAKE TWO CAPSULES BY MOUTH EVERY MORNING completed duloxetine 20 MG Delayed Release Oral Capsule [facility] ([facility]) gabapentin 400 MG Oral Capsule gabapenti n 400 mg capsule TAKE ONE CAPSULE BY MOUTH THREE TIMES A DAY IN ADDITION TO 800MG gabapentin 400 mg capsule TAKE ONE CAPSULE BY MOUTH THREE TIMES A DAY IN ADDITION TO 800MG completed gabapentin 400 MG Oral Capsule [facility] ([facility]) Cyclobenzaprine hydrochloride 5 MG Oral Tablet [...] completed ibuprofen 800 MG Oral Tablet [facility] ([facility]) duloxetine 20 MG Delayed Release Oral Ca psule duloxetine 20 mg capsule,delayed release TAKE TWO CAPSULES BY MOUTH EVERY MORNING duloxetine 20 mg capsule,delayed release TAKE TWO CAPSULES BY MOUTH EVERY MORNING completed duloxetine 20 MG Delayed Release Oral Capsule [facility] ([facility]) Cyclobenzaprine hydrochloride 5 MG Oral Tablet cyclobenzaprine 5 mg tablet TAKE TWO TABLETS BY MOUTH TWICE A DAY cyclobenzaprine 5 mg tablet TAKE TWO TAB LETS BY MOUTH TWICE A DAY completed cyclobenzaprine hydrochloride 5 MG Oral Tablet [facility] ([facility]) duloxetine 20 MG Delayed Release Oral Ca psule duloxetine 20 mg capsule,delayed release TAKE TWO CAPSULES BY MOUTH EVERY MORNING duloxetine 20 mg capsule,delayed release TAKE TWO CAPSULES BY MOUTH EVERY MORNING completed duloxetine 20 MG Delayed Release Oral Capsule [place] ([facility]) pregabalin 50 MG Oral Capsule pregabalin 50 mg capsule prega balin 50 mg capsule completed pregabalin 50 MG Oral Capsule [place] ([facility]) gabapentin 800 MG Oral Tablet gabapentin 800 mg tablet TAKE ONE TABLET BY MOUTH THREE TIMES A DAY gabapentin 800 mg tablet TAKE ONE TABLET BY MOUTH THREE TIMES A DAY completed gabapentin 800 M G Oral Tablet [facility] ([facility]) gabapentin 400 MG Oral Capsule gabapenti n 400 mg capsule TAKE ONE CAPSULE BY MOUTH THREE TIMES A DAY IN ADDITION TO 800MG gabapentin 400 mg capsule TAKE ONE CAPSULE BY MOUTH THREE TIMES A DAY IN ADDITION TO 800MG completed gabapentin 400 MG Oral Capsule [facility] ([facility]) pregabalin 50 MG Oral Capsule pregabalin 50 mg capsule prega balin 50 mg capsule completed pregabalin 50 MG Oral Capsule [facility] ([facility]) pregabalin 50 MG Oral Capsule pregabalin 50 mg capsule prega balin 50 mg capsule completed pregabalin 50 MG Oral Capsule [place] ([facility]) Metformin hydrochloride 500 MG Oral Tabl et metformin 500 mg tablet Take 1 tablet twice a day by oral route. metformin 500 mg tablet Take 1 tablet tw ice a day by oral route. 1 completed m etformin hydrochloride 500 MG Oral Tablet [facility] ([facility]) Ibuprofen 800 MG Oral Tablet ibuprofen 800 mg tablet ibuprofen 8 00 mg tablet completed ibuprofen 800 MG Oral Tablet [facility] ([facility]) gabapentin 400 MG Oral Capsule gabapenti n 400 mg capsule TAKE ONE CAPSULE BY MOUTH THREE TIMES A DAY IN ADDITION TO 800MG gabapentin 400 mg capsule TAKE ONE CAPSULE BY MOUTH THREE TIMES A DAY IN ADDITION TO 800MG completed gabapentin 400 MG Oral Capsule [place] ([facility]) gabapentin 800 MG Oral Tablet gabapentin 800 mg tablet gabap entin 800 mg tablet completed gabapentin 800 MG Oral Tablet [place] ([facility]) gabapentin 400 MG Oral Capsule gabapentin 400 mg capsu le gabapentin 400 mg capsule completed gabapentin 400 MG Oral Capsule [place] ([facility]) Cyclobenzaprine hydrochloride 5 MG Oral Tablet cyclobenzaprine 5 mg tablet TAKE TWO TABLETS BY MOUTH TWICE A DAY cyclobenzaprine 5 mg tablet TAKE TWO TAB LETS BY MOUTH TWICE A DAY completed cyclobenzaprine hydrochloride 5 MG Oral Tablet [place] ([facility]) Cyclobenzaprine hydrochloride 5 MG Oral Tablet cyclobenzaprine 5 mg tablet TAKE TWO TABLETS BY MOUTH TWICE A DAY cyclobenzaprine 5 mg tablet TAKE TWO TAB LETS BY MOUTH TWICE A DAY completed cyclobenzaprine hydrochloride 5 MG Oral Tablet [place] ([facility]) duloxetine 20 MG Delayed Release Oral Ca psule duloxetine 20 mg capsule,delayed release TAKE TWO CAPSULES BY MOUTH EVERY MORNING duloxetine 20 mg capsule,delayed release TAKE TWO CAPSULES BY MOUTH EVERY MORNING completed duloxetine 20 MG Delayed Release Oral Capsule [place] ([facility]) pregabalin 50 MG Oral Capsule pregabalin 50 mg capsule TAKE ONE CAPSULE BY MOUTH TWICE A DAY MAXIMUM DAILY DOSE 2 DO NOT START UNTIL WEANED OFF OF GABAPENTIN pregabalin 50 mg capsule TAKE ONE CAPSUL E BY MOUTH TWICE A DAY MAXIMUM DAILY DOSE 2 DO NOT START UNTIL WEANED OFF OF GABAPENTIN completed pregabalin 50 MG Oral Capsule AT [facility] ([facility]) pregabalin 50 MG Oral Capsule pregabalin 50 mg capsule prega balin 50 mg capsule completed pregabalin 50 MG Oral Capsule [place] ([facility]) pregabalin 50 MG Oral Capsule pregabalin 50 mg capsule prega balin 50 mg capsule completed pregabalin 50 MG Oral Capsule [place] ([facility]) gabapentin 800 MG Oral Tablet gabapentin 800 mg tablet gabap entin 800 mg tablet completed gabapentin 800 MG Oral Tablet [place] ([facility]) Metformin hydrochloride 500 MG Oral Tabl et metformin 500 mg tablet Take 1 tablet every day by oral route. metformin 500 mg tablet Take 1 tablet by oral route. 1 completed me tformin hydrochloride 500 MG Oral Tablet [facility] ([facility]) gabapentin 800 MG Oral Tablet gabapentin 800 mg tablet TAKE ONE TABLET BY MOUTH THREE TIMES A DAY gabapentin 800 mg tablet TAKE ONE TABLET BY MOUTH THREE TIMES A DAY completed gabapentin 800 M G Oral Tablet [facility] ([facility]) gabapentin 400 MG Oral Capsule gabapentin 400 mg capsu le gabapentin 400 mg capsule completed gabapentin 400 MG Oral Capsule [facility] ([facility]) Ibuprofen 800 MG Oral Tablet ibuprofen 800 mg tablet ibuprofen 8 00 mg tablet completed ibuprofen 800 MG Oral Tablet [facility] ([facility]) duloxetine 20 MG Delayed Release Oral Ca psule duloxetine 20 mg capsule,delayed release TAKE TWO CAPSULES BY MOUTH EVERY MORNING duloxetine 20 mg capsule,delayed release TAKE TWO CAPSULES BY MOUTH EVERY MORNING completed duloxetine 20 MG Delayed Release Oral Capsule [facility] ([facility]) Ibuprofen 800 MG Oral Tablet ibuprofen 800 mg tablet ibuprofen 8 00 mg tablet completed ibuprofen 800 MG Oral Tablet [facility] ([facility]) duloxetine 20 MG Delayed Release Oral Ca psule duloxetine 20 mg capsule,delayed release TAKE TWO CAPSULES BY MOUTH EVERY MORNING duloxetine 20 mg capsule,delayed release TAKE TWO CAPSULES BY MOUTH EVERY MORNING completed duloxetine 20 MG Delayed Release Oral Capsule [facility] ([facility]) gabapentin 800 MG Oral Tablet gabapentin 800 mg tablet gabap entin 800 mg tablet completed gabapentin 800 MG Oral Tablet [place] ([facility]) gabapentin 800 MG Oral Tablet gabapentin 800 mg tablet gabap entin 800 mg tablet completed gabapentin 800 MG Oral Tablet [place] ([facility]) duloxetine 20 MG Delayed Release Oral Ca psule duloxetine 20 mg capsule,delayed release TAKE TWO CAPSULES BY MOUTH EVERY MORNING duloxetine 20 mg capsule,delayed release TAKE TWO CAPSULES BY MOUTH EVERY MORNING completed duloxetine 20 MG Delayed Release Oral Capsule [place] ([facility]) Cyclobenzaprine hydrochloride 5 MG Oral Tablet cyclobenzaprine 5 mg tablet TAKE TWO TABLETS BY MOUTH TWICE A DAY cyclobenzaprine 5 mg tablet TAKE TWO TAB LETS BY MOUTH TWICE A DAY completed cyclobenzaprine hydrochloride 5 [facility]alin 50 MG Oral Capsule pregabalin 50 mg capsule prega balin 50 mg capsule completed pregabalin 50 MG Oral Capsule [facility] ([facility]) Cyclobenzaprine hydrochloride 5 MG Oral Tablet cyclobe nzaprine 5 mg tablet cyclobenzaprine 5 mg tablet completed cyclobenzaprine hydrochloride 5 MG Oral Tablet [facility] ([facility]) Metformin hydrochloride 500 MG Oral Tabl et metformin 500 mg tablet Take 1 tablet every day by oral route. metformin 500 mg tablet Take 1 tablet ev [place] day by oral route. 1 completed me tformin hydrochloride 500 MG Oral Tablet [facility] ([facility]) gabapentin 800 MG Oral Tablet gabapentin 800 mg tablet TAKE ONE TABLET BY MOUTH THREE TIMES A DAY gabapentin 800 mg tablet TAKE ONE TABLET BY MOUTH THREE TIMES A DAY completed gabapentin 800 M G Oral Tablet [facility] ([facility]) gabapentin 800 MG Oral Tablet gabapentin 800 mg tablet TAKE ONE TABLET BY MOUTH THREE TIMES A DAY gabapentin 800 mg tablet TAKE ONE TABLET BY MOUTH THREE TIMES A DAY completed gabapentin 800 M G Oral Tablet [place] ([facility]) Ibuprofen 800 MG Oral Tablet ibuprofen 800 mg tablet ibuprofen 8 00 mg tablet completed ibuprofen 800 MG Oral Tablet [place] ([facility]) pregabalin 50 MG Oral Capsule pregabalin 50 mg capsule TAKE ONE CAPSULE BY MOUTH TWICE A DAY MAXIMUM DAILY DOSE 2 DO NOT START UNTIL WEANED OFF OF GABAPENTIN pregabalin 50 mg capsule TAKE ONE CAPSUL E BY MOUTH TWICE A DAY MAXIMUM DAILY DOSE 2 DO NOT START UNTIL WEANED OFF OF GABAPENTIN completed [facility] Metformin hydrochloride 500 MG Oral Tabl et metformin 500 mg tablet Take 1 tablet every day by oral route. metformin 500 mg tablet Take 1 tablet ev [place] day by oral route. 1 completed me tformin hydrochloride 500 MG Oral Tablet [place] ([facility]) duloxetine 20 MG Delayed Release Oral Ca psule duloxetine 20 mg capsule,delayed release TAKE TWO CAPSULES BY MOUTH EVERY MORNING duloxetine 20 mg capsule,delayed release TAKE TWO CAPSULES BY MOUTH EVERY MORNING completed duloxetine 20 MG Delayed Release Oral Capsule [place] ([facility]) pregabalin 50 MG Oral Capsule pregabalin [...] 50 MG Oral Capsule AT [facility] ([facility]) Cyclobenzaprine hydrochloride 5 MG Oral Tablet cyclobe nzaprine 5 mg tablet cyclobenzaprine 5 mg tablet completed cyclobenzaprine hydrochloride 5 MG Oral Tablet [place] ([facility]) duloxetine 20 MG Delayed Release Oral Ca psule duloxetine 20 mg capsule,delayed release TAKE TWO CAPSULES BY MOUTH EVERY MORNING duloxetine 20 mg capsule,delayed release TAKE TWO CAPSULES BY MOUTH EVERY MORNING completed duloxetine 20 MG Delayed Release Oral Capsule [place] ([facility]) gabapentin 800 MG Oral Tablet gabapentin 800 mg tablet gabap entin 800 mg tablet completed gabapentin 800 MG Oral Tablet [place] ([facility]) gabapentin 400 MG Oral Capsule gabapenti n 400 mg capsule TAKE ONE CAPSULE BY MOUTH THREE TIMES A DAY IN ADDITION TO 800MG gabapentin 400 mg capsule TAKE ONE CAPSULE BY MOUTH THREE TIMES A DAY IN ADDITION TO 800MG completed gabapentin 400 MG Oral Capsule [place] ([facility]) pregabalin 50 MG Oral Capsule pregabalin 50 mg capsule TAKE ONE CAPSULE BY MOUTH TWICE A DAY MAXIMUM DAILY DOSE 2 DO NOT START UNTIL WEANED OFF OF GABAPENTIN pregabalin 50 mg capsule TAKE ONE CAPSUL E BY MOUTH TWICE A DAY MAXIMUM DAILY DOSE 2 DO NOT START UNTIL WEANED OFF OF GABAPENTIN completed pregabalin 50 MG Oral Capsule AT [facility] ([facility]) Cyclobenzaprine hydrochloride 5 MG Oral Tablet cyclobenzaprine 5 mg tablet TAKE TWO TABLETS BY MOUTH TWICE A DAY cyclobenzaprine 5 mg tablet TAKE TWO TAB LETS BY MOUTH TWICE A DAY completed cyclobenzaprine hydrochloride 5 MG Oral Tablet [place] ([facility]) pregabalin 50 MG Oral Capsule pregabalin 50 mg capsule prega balin 50 mg capsule completed pregabalin 50 MG Oral Capsule [facility]) duloxetine 20 MG Delayed Release Oral Ca psule duloxetine 20 mg capsule,delayed release TAKE TWO CAPSULES BY MOUTH EVERY MORNING duloxetine 20 mg capsule,delayed release TAKE TWO CAPSULES BY MOUTH EVERY MORNING completed duloxetine 20 MG Delayed Release Oral Capsule [place] ([facility]) gabapentin 400 MG Oral Capsule gabapentin 400 mg capsu le gabapentin 400 mg capsule completed gabapentin 400 MG Oral Capsule [place] ([facility]) gabapentin 400 MG Oral Capsule gabapentin 400 mg capsu le gabapentin 400 mg capsule completed gabapentin 400 MG Oral Capsule [facility]) pregabalin 50 MG Oral Capsule pregabalin 50 mg capsule TAKE ONE CAPSULE BY MOUTH TWICE A DAY MAXIMUM DAILY DOSE 2 DO NOT START UNTIL WEANED OFF OF GABAPENTIN pregabalin 50 mg capsule TAKE ONE CAPSUL E BY MOUTH TWICE A DAY MAXIMUM DAILY DOSE 2 DO NOT START UNTIL WEANED OFF OF GABAPENTIN completed pregabalin 50 MG Oral Capsule AT [facility] ([facility]) gabapentin 400 MG Oral Capsule gabapentin 400 mg capsu le gabapentin 400 mg capsule completed gabapentin 400 MG Oral Capsule [place] ([facility]) gabapentin 800 MG Oral Tablet gabapentin 800 mg tablet gabap entin 800 mg tablet completed gabapentin 800 MG Oral Tablet [place] ([facility]) Ibuprofen 800 MG Oral Tablet ibuprofen 800 mg tablet ibuprofen 8 00 mg tablet completed ibuprofen 800 MG Oral Tablet [facility] ([facility]) Ibuprofen 800 MG Oral Tablet ibuprofen 800 mg tablet ibuprofen 8 00 mg tablet completed ibuprofen 800 MG Oral Tablet [place] ([facility]) pregabalin 50 MG Oral Capsule pregabalin 50 mg capsule prega balin 50 mg capsule completed pregabalin 50 MG Oral Capsule [place] ([facility]) pregabalin 50 MG Oral Capsule pregabalin 50 mg capsule prega balin 50 mg capsule completed pregabalin 50 MG Oral Capsule [place] ([facility]) duloxetine 20 MG Delayed Release Oral Ca psule duloxetine 20 mg capsule,delayed release TAKE TWO CAPSULES BY MOUTH EVERY MORNING duloxetine 20 mg capsule,delayed release TAKE TWO CAPSULES BY MOUTH EVERY MORNING completed duloxetine 20 MG Delayed Release Oral Capsule [place] ([facility]) gabapentin 800 MG Oral Tablet gabapentin 800 mg tablet gabap entin 800 mg tablet completed gabapentin 800 MG Oral Tablet [place] ([facility]) Cyclobenzaprine hydrochloride 5 MG Oral Tablet cyclobe nzaprine 5 mg tablet cyclobenzaprine 5 mg tablet completed cyclobenzaprine hydrochloride 5 MG Oral Tablet [place] ([facility]) Metformin hydrochloride 500 MG Oral Tabl et metformin 500 mg tablet Take 1 tablet twice a day by oral route. metformin 500 mg tablet Take 1 tablet tw ice a day by oral route. 1 completed m etformin hydrochloride 500 MG Oral Tablet [place] ([facility]) Ibuprofen 800 MG Oral Tablet ibuprofen 800 mg tablet ibuprofen 8 00 mg tablet completed ibuprofen 800 MG Oral Tablet [place] ([facility]) Ibuprofen 800 MG Oral Tablet ibuprofen 800 mg tablet ibuprofen 8 00 mg tablet completed ibuprofen 800 MG Oral Tablet [place] ([facility]) gabapentin 400 MG Oral Capsule gabapentin 400 mg capsu le gabapentin 400 mg capsule completed gabapentin 400 MG Oral Capsule [place] ([facility]) duloxetine 20 MG Delayed Release Oral Ca psule duloxetine 20 mg capsule,delayed release TAKE TWO CAPSULES BY MOUTH EVERY MORNING duloxetine 20 mg capsule,delayed release TAKE TWO CAPSULES BY MOUTH EVERY MORNING completed duloxetine 20 MG Delayed Release Oral Capsule [place] ([facility]) Ibuprofen 800 MG Oral Tablet ibuprofen 800 mg tablet ibuprofen 8 00 mg tablet completed ibuprofen 800 MG Oral Tablet [place] ([facility]) gabapentin 800 MG Oral Tablet gabapentin 800 mg tablet TAKE ONE TABLET BY MOUTH THREE TIMES A DAY gabapentin 800 mg tablet TAKE ONE TABLET BY MOUTH THREE TIMES A DAY completed gabapentin 800 M G Oral Tablet [place] ([facility]) gabapentin 800 MG Oral Tablet gabapentin 800 mg tablet gabap entin 800 mg tablet completed gabapentin 800 MG Oral Tablet [place] ([facility]) Ibuprofen 800 MG Oral Tablet ibuprofen 800 mg tablet ibuprofen 8 00 mg tablet completed ibuprofen 800 MG Oral Tablet [facility]) 24 HR Nicotine 0.875 MG/HR Transdermal P atch nicotine 21 mg/24 hr daily transdermal patch APPLY 1 PATCH TOPICALLY ONCE DAILY DIRECTED nicotine 21 mg/24 hr daily transdermal patch APPLY 1 PATCH TOPICALLY ONCE DAILY DIRECTED completed 24 HR nicotine 0.875 MG/HR Transdermal System [facility]) duloxetine 20 MG Delayed Release Oral Ca psule duloxetine 20 mg capsule,delayed release TAKE TWO CAPSULES BY MOUTH EVERY MORNING duloxetine 20 mg capsule,delayed release TAKE TWO CAPSULES BY MOUTH EVERY MORNING completed duloxetine 20 MG Del[facility] Cyclobenzaprine hydrochloride 5 MG Oral Tablet cyclobenzaprine 5 mg tablet TAKE TWO TABLETS BY MOUTH TWICE A DAY cyclobenzaprine 5 mg tablet TAKE TWO TAB LETS BY MOUTH TWICE A DAY completed cyclobenzaprine hydrochloride 5 MG Oral Tablet [place] ([facility]) gabapentin 800 MG Oral Tablet gabapentin 800 mg tablet gabap entin 800 mg tablet completed gabapentin 800 MG Oral Tablet [facility]) gabapentin 800 MG Oral Tablet gabapentin 800 mg tablet gabap entin 800 mg tablet completed gabapentin 800 MG Oral Tablet [facility]) Cyclobenzaprine hydrochloride 5 MG Oral Tablet cyclobenzaprine 5 mg tablet TAKE TWO TABLETS BY MOUTH TWICE A DAY cyclobenzaprine 5 mg tablet TAKE TWO TAB LETS BY MOUTH TWICE A DAY completed cyclobenzaprine hydrochloride 5 MG Oral Tablet [facility] ([facility]) gabapentin 400 MG Oral Capsule gabapenti n 400 mg capsule TAKE ONE CAPSULE BY MOUTH THREE TIMES A DAY IN ADDITION TO 800MG gabapentin 400 mg capsule TAKE ONE CAPSULE BY MOUTH THREE TIMES A DAY IN ADDITION TO 800MG completed gabapentin 400 MG Oral Capsule [place] ([facility]) pregabalin 50 MG Oral Capsule pregabalin 50 mg capsule prega balin 50 mg capsule completed pregabalin 50 MG Oral Capsule [place] ([facility]) Metformin hydrochloride 500 MG Oral Tabl et metformin 500 mg tablet Take 1 tablet twice a day by oral route. metformin 500 mg tablet Take 1 tablet tw ice a day by oral route. 1 completed m etformin hydrochloride 500 MG Oral Tablet [facility] ([facility]) pregabalin 50 MG Oral Capsule pregabalin 50 mg capsule TAKE ONE CAPSULE BY MOUTH TWICE A DAY MAXIMUM DAILY DOSE 2 DO NOT START UNTIL WEANED OFF OF GABAPENTIN pregabalin 50 mg capsule TAKE ONE CAPSUL E BY MOUTH TWICE A DAY MAXIMUM DAILY DOSE 2 DO NOT START UNTIL WEANED OFF OF GABAPENTIN completed pregabalin 50 MG Oral Capsule AT [facility] ([facility]) Cyclobenzaprine hydrochloride 5 MG Oral Tablet cyclobenzaprine 5 mg tablet TAKE TWO TABLETS BY MOUTH TWICE A DAY cyclobenzaprine 5 mg tablet TAKE TWO TAB LETS BY MOUTH TWICE A DAY completed cyclobenzaprine hydrochloride 5 MG Oral Tablet [place] ([facility]) Metformin hydrochloride 500 MG Oral Tabl et metformin 500 mg tablet Take 1 tablet every day by oral route. metformin 500 mg tablet Take 1 tablet ev [place] day by oral route. 1 completed me tformin hydrochloride 500 MG Oral Tablet [facility] ([facility]) gabapentin 400 MG Oral Capsule gabapentin 400 mg capsu le gabapentin 400 mg capsule completed gabapentin 400 MG Oral Capsule [place] ([facility]) gabapentin 400 MG Oral Capsule gabapentin 400 mg capsu le gabapentin 400 mg capsule completed gabapentin 400 MG Oral Capsule [place] ([facility]) gabapentin 800 MG Oral Tablet gabapentin 800 mg tablet TAKE ONE TABLET BY MOUTH THREE TIMES A DAY gabapentin 800 mg tablet TAKE ONE TABLET BY MOUTH THREE TIMES A DAY completed gabapentin 800 M G Oral Tablet [place] ([facility]) Metformin hydrochloride 500 MG Oral Tabl et metformin 500 mg tablet Take 1 tablet every day by oral route. metformin 500 mg tablet Take 1 tablet ev [place] day by oral route. 1 completed me tformin hydrochloride 500 MG Oral Tablet [facility] ([facility]) Metformin hydrochloride 500 MG Oral Tabl et metformin 500 mg tablet Take 1 tablet every day by oral route. metformin 500 mg tablet Take 1 tablet ev [place] day by oral route. 1 completed me tformin hydrochloride 500 MG Oral Tablet [facility] ([facility]) gabapentin 800 MG Oral Tablet gabapentin 800 mg tablet gabap entin 800 mg tablet completed gabapentin 800 MG Oral Tablet [facility] ([facility]) duloxetine 20 MG Delayed Release Oral Ca psule duloxetine 20 mg capsule,delayed release TAKE TWO CAPSULES BY MOUTH EVERY MORNING duloxetine 20 mg capsule,delayed release TAKE TWO CAPSULES BY MOUTH EVERY MORNING completed duloxetine 20 MG Delayed Release Oral Capsule [facility] ([facility]) Metformin hydrochloride 500 MG Oral Tabl et metformin 500 mg tablet Take 1 tablet every day by oral route. metformin 500 mg tablet Take 1 tablet ev [place] day by oral route. 1 completed me tformin hydrochloride 500 MG Oral Tablet [facility] ([facility]) duloxetine 20 MG Delayed Release Oral Ca psule duloxetine 20 mg capsule,delayed release TAKE TWO CAPSULES BY MOUTH EVERY MORNING duloxetine 20 mg capsule,delayed release TAKE TWO CAPSULES BY MOUTH EVERY MORNING completed duloxetine 20 MG Delayed Release Oral Capsule [place] ([facility]) gabapentin 800 MG Oral Tablet gabapentin 800 mg tablet TAKE ONE TABLET BY MOUTH THREE TIMES A DAY gabapentin 800 mg tablet TAKE ONE TABLET BY MOUTH THREE TIMES A DAY completed gabapentin 800 M G Oral Tablet [facility] ([facility]) Cyclobenzaprine hydrochloride 5 MG Oral Tablet cyclobenzaprine 5 mg tablet TAKE TWO TABLETS BY MOUTH TWICE A DAY cyclobenzaprine 5 mg tablet TAKE TWO TAB LETS BY MOUTH TWICE A DAY completed cyclobenzaprine hydrochloride 5 MG Oral Tablet [facility] ([facility]) Cyclobenzaprine hydrochloride 5 MG Oral Tablet cyclobenzaprine 5 mg tablet TAKE TWO TABLETS BY MOUTH TWICE A DAY cyclobenzaprine 5 mg tablet TAKE TWO TAB LETS BY MOUTH TWICE A DAY completed cyclobenzaprine hydrochloride 5 MG Oral Tablet [facility] ([facility]) Metformin hydrochloride 500 MG Oral Tabl et metformin 500 mg tablet Take 1 tablet twice a day by oral route. metformin 500 mg tablet Take 1 tablet tw ice a day by oral route. 1 completed m etformin hydrochloride 500 MG Oral Tablet [facility] ([facility]) pregabalin 50 MG Oral Capsule pregabalin 50 mg capsule TAKE ONE CAPSULE BY MOUTH TWICE A DAY MAXIMUM DAILY DOSE 2 DO NOT START UNTIL WEANED OFF OF GABAPENTIN pregabalin 50 mg capsule TAKE ONE CAPSUL E BY MOUTH TWICE A DAY MAXIMUM DAILY DOSE 2 DO NOT START UNTIL WEANED OFF OF GABAPENTIN completed pregabalin 50 MG Oral Capsule AT [facility] ([facility]) Cyclobenzaprine hydrochloride 5 MG Oral Tablet cyclobe nzaprine 5 mg tablet cyclobenzaprine 5 mg tablet completed cyclobenzaprine hydrochloride 5 MG Oral Tablet [facility] ([facility]) Cyclobenzaprine hydrochloride 5 MG Oral Tablet cyclobenzaprine 5 mg tablet TAKE TWO TABLETS BY MOUTH TWICE A DAY cyclobenzaprine 5 mg tablet TAKE TWO TAB LETS BY MOUTH TWICE A DAY completed cyclobenzaprine hydrochloride 5 MG Oral Tablet [facility] ([facility]) pregabalin 50 MG Oral Capsule pregabalin 50 mg capsule TAKE ONE CAPSULE BY MOUTH TWICE A DAY MAXIMUM DAILY DOSE 2 DO NOT START UNTIL WEANED OFF OF GABAPENTIN pregabalin 50 mg capsule TAKE ONE CAPSUL E BY MOUTH TWICE A DAY MAXIMUM DAILY DOSE 2 DO NOT START UNTIL WEANED OFF OF GABAPENTIN completed pregabalin 50 MG Oral Capsule AT [facility] ([facility]) gabapentin 400 MG Oral Capsule gabapenti n 400 mg capsule TAKE ONE CAPSULE BY MOUTH THREE TIMES A DAY IN ADDITION TO 800MG gabapentin 400 mg capsule TAKE ONE CAPSULE BY MOUTH THREE TIMES A DAY IN ADDITION TO 800MG completed gabapentin 400 MG [facility] pregabalin 50 MG Oral Capsule pregabalin 50 mg capsule prega balin 50 mg capsule completed pregabalin 50 MG Oral Capsule [place] ([facility]) Metformin hydrochloride 500 MG Oral Tabl et metformin 500 mg tablet Take 1 tablet twice a day by oral route. metformin 500 mg tablet Take 1 tablet tw ice a day by oral route. 1 completed m etformin hydrochloride 500 MG Oral Tablet [place] ([facility]) Insurance Providers Payer name Policy type / Coverage type Policy ID Covered libertarian ID Covered libertarian's relationship to avalos Policy A[employer]os Plan Information MEDICAID [id number] SP [id number] Medicaid S [id number] S [id number] [employer] BCYO P [id number] S HDY [id number] EXCELL[employer] C [id number] Self [id number] [place] [id number] SP [id number] [place] PPO 302/307 [id number] SP [id number] MEDICAID [id number] SP [id number] BLUE CARD C [id number] Self [id number] [employer] BCYO P [id number] S [id number] [employer] P [id number] S [id number] Medicaid S [id number] S [id number] [employer] BCYO P [id number] S [id number] BS [place] Commercial [id number] Self [id number] BS [place] Medigap Part B [id number] Self [id number] BS [place] Commercial [id number] Self [id number] Medicaid [place] Medigap Part B [id number] Self [id number] [place] Medig[place] Part [place] [id number] Self [id number] [place] Medig[place] Part B [id number] Self [id number] [place] Med[place] Part [place] [id number] Self [id number] [facility] [id number] Self [id number] [facility] [id number] Self [id number] [facility] [id number] Self [id number] BS [place] Commercial [id number] Self [id number] BS [place] Commercial [id number] Self [id number] Managed Care [place] S [id number] S [id number] [place] Medicaid/CHP/FHP Commercial [id number] Self [id number] [employer] BCBS P [id number] S HDY [id number] [employer] BCYO P [id number] S HDY [id number] BS [place] Medigap Part B [id number] Self [id number] [employer] BCYO P [id number] S HDY [id number] [place] PPO 302/307 [id number] SP [id number] BS [place] Commercial [id number] Self [id number] Medicaid P [id number] S [id number] Managed [facility] [place] P [id number] S [id number] Medicaid S [id number] S [id number] [place] [employer] [id number] Self [id number] [place] [employer] [id number] Self [id number] RPR- Needs Payer Match [id number] Self [id number] BLUE CROSS BLUE SHIELD -O/P [id number] 18 [id number] BLUE CROSS BLUE SHIELD -PHYSICIAN [id number] 18 [id number] [facility] [place] [id number] [employer] BCYO P [id number] S HDY [id number] Self Pay P [id number] S [id number] BCBS/Blue Card Commercial [id number] Self [id number] [place] PPO 302/307 [id number] SP [id number] BCBS/Blue Card Commercial [id number] Self [id number] [employer] BCBS B [id number] S HDY [id number] Managed Care - Community Plan [facility] P UNAVAILABLE S UNAVAILABLE SELF PAY UNAVAILABLE SP UNAVAILA BLE [facility] COMMUNITY PLAN [facility] [id number] SP [id number] [facility] AMERICHOICE XIX -[facility] [id number] 18 [id number] Managed Care [facility] P [id number] S [id number] CARLO [id number] SP [id number] [facility] [id number] 18 [id number] CAR[place] MEDICAID [id number] S [id number] SELF PAY ONLY [id number] SP [id number] [place] [id number] SP [id number] Managed Care [place] P [id number] S [id number] [place]OP [id number] 18 [id number] [place] O [id number] S [id number] MEDICAID [id number] SP [id number] [place] Medicaid/CHP/FHP Medigap Part B [id number] Self [id number] [place] [id number] Self [id number] BCBS [employer] U/W Medigap Part B [id number] Self [id number] [place] - Medicaid o Health Maintenance Organization (HMO) [id number] Self [id number] Medicaid Medigap Part B [id number] Self [id number] BCBS [employer] U/W Commercial [id number] Self [id number] [employer] BS Health Maintenance Organization (HMO) [id number] Self [id number] [facility] Health Maintenance Organization (O) [id number] Self [id number] [place]BS [place] PPO 302/307 [id number] SP [id number] BCBS [employer] U/W Medigap Part B [id number] Self [id number] [place] - Medicaid Hmo Health Maintenance Organization ([facility]) [facility] [id number] Self [id number] Medicaid Medigap Part B [id number] [id number] Self [id number] BCBS [employer] U/W Commercial [id number] Self [id number] BCBS [employer] U/W Medigap Part B [id number] Self [id number] [place] - Medicaid Hmo Health Maintenance [facility] ([facility]) [facility] [id number] Self [id number] Medicaid Medigap Part B [id number] Self [id number] BCBS [employer] U/W Commercial [id number] Self [id number] [place] Medicaid/CHP/FHP Medigap Part B [id number] Self [id number] [place] Medicaid/CHP/FHP Medigap Part B [id number] Self [id number] [place] Medicaid/CHP/FHP Medigap Part B [id number] Self [id number] BCBS [place] PPO 302/307 [id number] SP [id number] [place] Medicaid/CHP/FHP Medigap Part B [id number] Self [id number] BCBS [facility] U/W Medigap Part B [id number] Self [id number] [place] - Medicaid o Health Maintenance Organization (HMO) [id number] Self [id number] BCBS [employer] U/W Commercial [id number] Self [id number] [employer] BCBS B [id number] S [id number] BCBS [employer] U/W Commercial [id number] Self [id number] BCBS [employer] U/W Commercial [id number] Self [id number] BCBS [place] PPO 302/307 [id number] SP [id number] [employer] BCBS Health Maintenance Organization (HMO) [id number] Self [id number] Problems, Conditions, and Diagnoses Code Display Name Description Problem Type Effective Dates Data Source(s) M79.18 MYALGIA, OTHER SITE MYALGIA, OTHER SITE Diagnosis 0 06/06/2020 08:04:00 AM [facility] M47.816 Spondylosis without myelopathy or radicu lopathy, 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 Diagnosis 06/06/2020 08:04:00 AM [facility] M48.061 SPINAL STENOSIS, LUMBAR REGION WITHOUT N SPINAL STENOSIS, LUMBAR REGION WITHOUT N Diagnosis 06/06/2020 08:04:00 AM [facility] M51.36 Other intervertebral disc degeneration, lumbar region OTHER INTERVERTEBRAL DISC DEGENERATION, Diagnosis 06/06/2020 08:04:00 AM [facility] Z51.89 Encounter for other specified aftercare ENCOUNTER FOR OTHER SPECIFIED AFTERCARE Diagnosis 06/06/2020 08:04:00 AM [facility] [id number] Screening mammography of bilateral breas ts Screening Mammography of Bilateral Breasts Problem 01/07/2021 12:00:00 AM EDT [facility]) [id number] Body mass index 40+ - severely obese Bod y Mass Index 40+ - Severely Obese Problem 01/07/2021 12:00:00 AM EDT [facility]) 142880013 Chronic low back pain Chronic Low Back Pain Problem 01/07/2021 12:00:00 AM [place] [facility]) 433239183 Decreased hearing Decreased Hearing Problem 01/07 12:00:00 AM EDT [place] ([facility]) [id number] Screening mammography of bilateral breas ts Screening Mammography of Bilateral Breasts Problem 01/07/2021 12:00:00 AM EDT [facility]) 283403589 Body mass index 40+ - severely obese Bod y Mass Index 40+ - Severely Obese Problem 01/07/2021 12:00:00 AM EDT [facility]) 216754294 Chronic low back pain Chronic Low Back Pain Problem 01/07/2021 12:00:00 AM EDT [facility] ([facility]) 713132853 Decreased hearing Decreased Hearing Problem 01/07 12:00:00 AM EDT [facility] ([facility]) [id number] Screening mammography of bilateral breas ts Screening Mammography of Bilateral Breasts Problem 01/07/2021 12:00:[facility] 765000133 Body mass index 40+ - severely obese Bod y Mass Index 40+ - Severely Obese Problem 01/07/2021 12:00:00 AM EDT [facility] ([facility]) 114333308 Chronic low back pain Chronic Low Back Pain Problem 01/07/2021 12:00:00 AM EDT [facility] ([facility]) 349794875 Decreased hearing Decreased Hearing Problem 01/07 12:00:00 AM EDT [facility] ([facility]) [id number] Screening mammography of bilateral breas ts Screening Mammography of Bilateral Breasts Problem 01/07/2021 12:00:00 AM EDT [facility] ([facility]) 957734672 Body mass index 40+ - severely obese Bod y Mass Index 40+ - Severely Obese Problem 01/07/2021 12:00:00 AM EDT [facility] ([facility]) 867422638 Chronic low back pain Chronic Low Back Pain Problem 01/07/2021 12:00:00 AM EDT [facility] ([facility]) 025413727 Decreased hearing Decreased Hearing Problem 01/07 12:00:00 AM EDT [facility] ([facility]) 243527730 Nicotine dependence with current use Tylor otine Dependence with Current Use Problem 12/03/2020 12:00:00 AM EDT [place] ([facility]) 360838581 Patient asked to attend Patient Asked to Attend Proble 12/03/2020 12:00:00 AM EDT [facility] ([facility]) 886361240 Prediabetes Prediabetes Problem 12/03/2020 12:00:00 AM EDT [facility] ([facility]) 54265934 Hyperlipidemia Hyperlipidemia Problem 12/03/2020 12:00: 00 AM EDT [facility] ([facility]) 447580023 Nicotine dependence with current use Tylor otine Dependence with Current Use Problem 12/03/2020 12:00:00 AM EDT [place] ([facility]) 112227143 Patient asked to attend Patient Asked to Attend Proble 12/03/2020 12:00:00 AM EDT [facility] ([facility]) 680422105 Prediabetes Prediabetes Problem 12/03/2020 12:00:00 AM EDT [facility] ([facility]) 22387014 Hyperlipidemia Hyperlipidemia Problem 12/03/2020 12:00: 00 AM EDT [place] ([facility]) 812688885 Nicotine dependence with current use Tylor otine Dependence with Current Use Problem 12/03/2020 12:00:00 AM EDT [place] ([facility]) 140405499 Patient asked to attend Patient Asked to Attend [facility] 12/03/2020 12:00:00 AM EDT [facility] ([facility]) 487673304 Prediabetes Prediabetes Problem 12/03/2020 12:00:00 AM EDT [place] ([facility]) 57366002 Hyperlipidemia Hyperlipidemia Problem 12/03/2020 12:00: 00 AM EDT [facility] ([facility]) 297505439 Nicotine dependence with current use Tylor otine Dependence with Current Use Problem 12/03/2020 12:00:00 AM EDT [place] ([facility]) 065739048 Patient asked to attend Patient Asked to Attend Proble 12/03/2020 12:00:00 AM EDT [facility] ([facility]) 312834360 Prediabetes Prediabetes Problem 12/03/2020 12:00:00 AM EDT [facility] ([facility]) 21339980 Hyperlipidemia Hyperlipidemia Problem 12/03/2020 12:00: 00 AM EDT [facility] ([facility]) 537213857 Nicotine dependence with current use Tylor otine Dependence with Current Use Problem 12/03/2020 12:00:00 AM EDT [facility] ([facility]) 217534115 Patient asked to attend Patient Asked to Attend Proble m 12/03/2020 12:00:00 AM EDT [facility] ([facility]) 932961900 Prediabetes Prediabetes Problem 12/03/2020 12:00:00 AM EDT [facility] ([facility]) 79024353 Hyperlipidemia Hyperlipidemia Problem 12/03/2020 12:00: 00 AM EDT [place] ([facility]) Surgeries/Procedures Procedure Description Date Indications Data Source(s) ECG ROUTINE ECG W/LEAST 12 LDS W/I&R 02/06/2021 12:00: 00 AM EDT [facility] ([facility]) OFFICE OUTPATIENT VISIT 25 MINUTES 02/06/2021 12:00:00 AM EDT [facility] ([facility]) TOBACCO USE CESSATION INTERMEDIATE 3-10 MINUTES 2020 12:00:00 AM EDT [facility] ([facility]) OFFICE OUTPATIENT VISIT 25 MINUTES 02/05/2021 12:00:00 AM EDT [facility] ([facility]) OFFICE OUTPATIENT VISIT 25 MINUTES 01/29/2021 12:00:00 AM EDT [facility] ([facility] ) X-Ray Hip Unilateral With Pelvis 2-3 Views 01/29/2021 12:00:00 AM EDT [facility] ([facility] ) THERAPEUTIC PX 1/> AREAS EACH 15 MIN EXERCISES 12:00:00 AM EDT [facility] ([facility]) THERAPEUTIC PX 1/> AREAS EACH 15 MIN EXERCISES 12:00:00 AM EDT [facility] ([facility] ) MANUAL THERAPY TQS 1/> REGIONS EACH 15 MINUTES 12:00:00 AM EDT [facility] ([facility]) THERAPEUTIC PX 1/> AREAS EACH 15 MIN EXERCISES 12:00:00 AM EDT [facility] ([facility]) MANUAL THERAPY TQS 1/> REGIONS EACH 15 MINUTES 12:00:00 AM EDT [facility] ([facility]) THERAPEUTIC PX 1/> AREAS EACH 15 MIN EXERCISES 12:00:00 AM EDT [facility] ([facility] ) MANUAL THERAPY TQS 1/> REGIONS EACH 15 MINUTES 09/08/2 021 12:00:00 AM EDT [facility] ([facility]) THERAPEUTIC PX 1/> AREAS EACH 15 MIN EXERCISES 12:00:00 AM EDT [facility] ([facility]) MANUAL THERAPY TQS 1/> REGIONS EACH 15 MINUTES 021 12:00:00 AM EDT [facility] ([facility] ) MAMMO, screening, digital, bilateral 01/03/2021 12:00: 00 AM EDT [facility] ([facility]) MAMMO, screening, digital, bilateral 01/03/2021 12:00: 00 AM EDT [facility] ([facility]) THERAPEUTIC PX 1/> AREAS EACH 15 MIN EXERCISES 12:00:00 AM EDT [facility] ([facility] ) MANUAL THERAPY TQS 1/> REGIONS EACH 15 MINUTES 021 12:00:00 AM EDT [facility] ([facility] ) THERAPEUTIC PX 1/> AREAS EACH 15 MIN EXERCISES 021 12:00:00 AM EDT [facility] ([facility] ) MANUAL THERAPY TQS 1/> REGIONS EACH 15 MINUTES 021 12:00:00 AM EDT [facility] ([facility] ) THERAPEUTIC PX 1/> AREAS EACH 15 MIN EXERCISES 12:00:00 AM EDT [facility] ([facility] ) MANUAL THERAPY TQS 1/> REGIONS EACH 15 MINUTES 021 12:00:00 AM EDT [facility] ([facility]) THERAPEUTIC PX 1/> AREAS EACH 15 MIN EXERCISES 021 12:00:00 AM EDT [facility] ([facility]) MANUAL THERAPY TQS 1/> REGIONS EACH 15 MINUTES 021 12:00:00 AM EDT [facility] ([facility]) THERAPEUTIC PX 1/> AREAS EACH 15 MIN EXERCISES 021 12:00:00 AM EDT [facility] ([facility]) MANUAL THERAPY TQS 1/> REGIONS EACH 15 MINUTES 021 12:00:00 AM EDT [facility] ([facility] ) Physical Therapy Eval - Low Complexity 12/10/2020 12:0 0:00 AM EDT [facility] ([facility]) OFFICE OUTPATIENT VISIT 15 MINUTES 11/28/2020 12:00:00 AM EDT [facility] ([facility]) OFFICE OUTPATIENT VISIT 25 MINUTES 11/28/2020 12:00:00 AM EDT [facility] ([facility]) ARTHROCENTESIS ASPIR&/INJECTION MAJOR JT/BURSA 021 12:00:00 AM EDT [facility] ([facility]) OFFICE OUTPATIENT VISIT 25 MINUTES 10/16/2020 12:00:00 AM EDT [facility] ([facility]) ECG ROUTINE ECG W/LEAST 12 LDS W/I&R 10/08/2020 12:00: 00 AM EDT [facility] ([facility]) OFFICE OUTPATIENT VISIT 25 MINUTES 10/08/2020 12:00:00 AM EDT [facility] ([facility]) TOBACCO USE CESSATION INTERMEDIATE 3-10 MINUTES 2020 12:00:00 AM EDT [facility] ([facility]) OFFICE OUTPATIENT VISIT 25 MINUTES 09/20/2020 12:00:00 AM EDT [facility] ([facility]) OFFICE OUTPATIENT VISIT 10 MINUTES 09/17/2020 12:00:00 AM EDT [facility] ([facility]) OFFICE OUTPATIENT VISIT 25 MINUTES 07/16/2020 12:00:00 AM EDT [facility] ([facility]) OFFICE OUTPATIENT VISIT 25 MINUTES 05/15/2020 12:00:00 AM EST [facility] ([facility]) NJX ANES&/STRD W/IMG TFRML EDRL LMBR/SAC 1 LVL 020 12:00:00 AM EST [facility] ([facility]) Epidurography Radiological Supervision & Interpretation 03/26/2020 12:00:00 AM EST [facility] ([facility]) Moderate Sedation Services; Same Phys Intl 15 Mins; PT >= 5 Years 03/26/2020 12:00:00 AM EST [facility] ([facility]) Results ID Date Data Source [id number] 01/26/2021 12:00:00 AM EDT [facility] ([facility]) Name Value Range Interpretation Code Description Data Mora rce(s) Supporting Document(s) Bacteria identified in Urine by Culture see note Abnormal (applies to non- numeric results) Culture, Urine, Routine [facility] ([facility]) ID Date Data Source [id number] 01/26/2021 12:00:00 AM EDT [place] ([facility]) Name Value Range Interpretation Code Description Data Mora rce(s) Supporting Document(s) Thyrotropin [Units/volume] in Serum or Plasma tnp TSH W/reflex to FT4 [facility] ([facility]) ID Date Data Source [id number] 01/26/2021 12:00:00 AM EDT [place] ([facility]) Name Value Range Interpretation Code Description Data Mora rce(s) Supporting Document(s) Cholesterol [Mass/volume] in Serum or Plasma tnp Cholesterol, Total [facility] ([facility]) Cholesterol in LDL [Mass/volume] in Serum or Plasma by calculation tnp LDL-cholesterol [facility] ([facility]) Cholesterol in HDL [Mass/volume] in Serum or Plasma tnp HDL Cholesterol [facility] ([facility]) Cholesterol.total/Cholesterol in HDL [Mass Ratio] in Serum or Plasm a tnp Chol/hdlc Ratio [facility] ([facility]) Triglyceride [Mass/volume] in Serum or Plasma tnp Triglycerides [facility] ([facility]) Cholesterol non HDL [Mass/volume] in Serum or Plasma tnp Non HDL Cholesterol [facility] ([facility]) ID Date Data Source [id number] 01/25/2021 12:00:00 AM EDT [place] ([facility]) Name Value Range Interpretation Code Description Data Mora rce(s) Supporting Document(s) Bacteria identified in Urine by Culture [facility] ID Date Data Source [id number] 01/25/2021 12:00:00 AM EDT [facility]) Name Value Range Interpretation Code Description Data Mora rce(s) Supporting Document(s) Color of Urine yellow yellow Color [facility] ([facility]) Appearance of Urine cloudy clear Abnormal (applies to non-numeric results) Appearance [facility] ([facility]) Glucose [Presence] in Urine by Test strip negative negative Glucose [facility] ([facility]) Specific gravity of Urine by Test strip 1.001-1.035 Specific [place] [facility] ([facility]) Bilirubin.total [Presence] in Urine by Test strip negative negative Bilirubin [facility] ([facility]) pH of Urine by Test strip 5.0-8.0 Ph [facility] ([facility]) Ketones [Presence] in Urine by Test strip negative negative Ketones [facility] ([facility]) Leukocyte esterase [Presence] in Urine by Test strip 3+ negative Abnormal (applies to non-numeric results) Leukocyte Esterase [facility] ([facility]) Hemoglobin [Presence] in Urine by Test strip 2+ neg ative Abnormal (applies to non-numeric results) Occult Blood [facility] ([facility]) Nitrite [Presence] in Urine by Test strip negative negative Nitrite [facility] ([facility]) Protein [Presence] in Urine by Test strip 1+ negati ve Abnormal (applies to non- numeric results) Protein [facility] ([facility]) Leukocytes [#/area] in Urine sediment by Microscopy high pow er field > or = 60 < or = 5 Abnormal (applies to non-numeric results) Wbc [facility] ([facility]) Erythrocytes [#/area] in Urine sediment by Microscopy high p ower field 3-10 < or = 2 Abnormal (applies to non-numeric results) Rbc [facility] ([facility]) Epithelial cells.squamous [#/area] in Ur ine sediment by Microscopy high power field 0-5 < or = 5 Squamous Epithelial Cells AT AIME [facility]) Amorphous sediment [Presence] in Urine sediment by Light anne roscopy few none or few Amorphous Sediment [facility] ([facility]) Bacteria [#/area] in Urine sediment by Microscopy high power field few none seen Abnormal (applies to non-numeric results) Bacteria [facility] ([facility]) Hyaline casts [#/area] in Urine sediment by Microscopy low power field none seen none seen Hyaline Cast [facility] ([facility]) ID Date Data Source [id number] 01/23/2021 11:53:00 AM EDT [facility] ([facility]) Name Value Range Interpretation Code Description Data Mora rce(s) Supporting Document(s) bilirubin neg Bilirubin [facility] ([facility]) blood 3+ Abnormal (applies to non-numeric res ults) Blood [facility] ([facility]) glucose neg Glucose [facility] ([facility]) ketone neg Ketone [facility] ([facility]) nitrite neg Nitrite [facility] ([facility]) leukocytes 3+ Abnormal (applies to non-numeric res ults) Leukocytes [facility] ([facility]) pH Ph [facility] ([facility]) protein 1+ Abnormal (applies to non-numeric res ults) Protein [facility] ([facility]) specific gravity Specific [place] [facility]) urobilinogen Urobilinogen [facility]) ID Date Data Source [id number] 01/23/2021 11:53:00 AM EDT [facility] ([facility]) Name Value Range Interpretation Code Description Data Mora rce(s) Supporting Document(s) bilirubin neg Bilirubin [facility] ([facility]) glucose neg Glucose [facility] ([facility]) blood 3+ Abnormal (applies to non-numeric res ults) Blood [facility] ([facility]) ketone neg Ketone [facility] ([facility]) leukocytes 3+ Abnormal (applies to non-numeric res ults) Leukocytes [facility] ([facility]) nitrite neg Nitrite [facility] ([facility]) pH Ph [facility] ([facility]) protein 1+ Abnormal (applies to non-numeric res ults) Protein [facility] ([facility]) specific gravity Specific [place] [facility]) urobilinogen [facility]ilinogen [facility] ID Date Data Source [id number] 11/19/2020 12:00:00 AM EDT [facility] ([facility]) Name Value Range Interpretation Code Description Data Mora rce(s) Supporting Document(s) SARS-CoV-2 (COVID-19) RNA [Presence] in Respiratory specimen by ISSA with probe detection negative negative Sars-cov-2 [facility] ([facility]) ID Date Data Source [id number] 11/19/2020 12:00:00 AM EDT [facility] ([facility]) Name Value Range Interpretation Code Description Data Mora rce(s) Supporting Document(s) ID Date Data Source [id number] 11/19/2020 12:00:00 AM EDT [facility] Name Value Range Interpretation Code Description Data Mora rce(s) Supporting Document(s) SARS-CoV-2 [facility] This lab was ordered by [facility] and reported by [facility]. ID Date Data Source [id number] 11/19/2020 12:00:00 AM EDT [facility] ([facility]) Name Value Range Interpretation Code Description Data Mora rce(s) Supporting Document(s) SARS-CoV-2 (COVID-19) RNA [Presence] in Respiratory specimen by ISSA with probe detection negative negative [facility] ID Date Data Source [id number] 11/19/2020 12:00:00 AM EDT [facility] ([facility]) Name Value Range Interpretation Code Description Data Omra rce(s) Supporting Document(s) ID Date Data Source [id number] 10/26/2020 12:00:00 AM EDT [facility] ([facility]) Name Value Range Interpretation Code Description Data Mora rce(s) Supporting Document(s) SARS-CoV-2 (COVID-19) RNA [Presence] in Respiratory specimen by ISSA with probe detection negative negative Sars-cov-2 [facility] ([facility]) ID Date Data Source [id number] 10/26/2020 12:00:00 AM EDT [place] ([facility]) Name Value Range Interpretation Code Description Data Mora rce(s) Supporting Document(s) ID Date Data Source [id number] 10/26/2020 12:00:00 AM EDT [facility] ([facility]) Name Value Range Interpretation Code Description Data Mora rce(s) Supporting Document(s) SARS-CoV-2 (COVID-19) RNA [Presence] in Respiratory specimen by ISSA with probe detection negative negative Sars-cov-2 [place] ([facility]) ID Date Data Source [id number] 10/26/2020 12:00:00 AM EDT [place] ([facility]) Name Value Range Interpretation Code Description Data Mora rce(s) Supporting Document(s) ID Date Data Source [id number] 10/26/2020 12:00:00 AM EDT [facility] ([facility]) Name Value Range Interpretation Code Description Data Mora rce(s) Supporting Document(s) SARS-CoV-2 (COVID-19) RNA [Presence] in Respiratory specimen by ISSA with probe detection negative negative Sars-cov-2 [place] ([facility]) ID Date Data Source [id number] 10/26/2020 12:00:00 AM EDT [facility] ([facility]) Name Value Range Interpretation Code Description Data Mora rce(s) Supporting Document(s) ID Date Data Source [id number] 10/26/2020 12:00:00 AM EDT [facility] Name Value Range Interpretation Code Description Data Mora rce(s) Supporting Document(s) SARS-CoV-2 NEGATIVE [facility] This lab was ordered by [facility] and reported by [facility]. ID Date Data Source [id number] 10/26/2020 12:00:00 AM EDT [place] [facility]) Name Value Range Interpretation Code Description Data Mora rce(s) Supporting Document(s) SARS-CoV-2 (COVID-19) RNA [Presence] in Respiratory specimen by ISSA with probe detection negative negative Sars-cov-2 [place] ([facility]) ID Date Data Source [id number] 10/26/2020 12:00:00 AM EDT [place] ([facility]) Name Value Range Interpretation Code Description Data Mora rce(s) Supporting Document(s) ID Date Data Source [id number] 10/15/2020 12:00:00 AM EDT [place] ([facility]) Name Value Range Interpretation Code Description Data Mora rce(s) Supporting Document(s) ID Date Data Source [id number] 10/15/2020 12:00:00 AM EDT [place] ([facility]) Name Value Range Interpretation Code Description Data Mora rce(s) Supporting Document(s) SARS-CoV-2 (COVID-19) RNA [Presence] in Respiratory specimen by ISSA with probe detection negative negative Sars-cov-2 [facility] ([facility]) ID Date Data Source [id number] 10/15/2020 12:00:00 AM EDT [place] ([facility]) Name Value Range Interpretation Code Description Data Mora rce(s) Supporting Document(s) ID Date Data Source [id number] 10/15/2020 12:00:00 AM EDT [place] ([facility]) Name Value Range Interpretation Code Description Data Mora rce(s) Supporting Document(s) SARS-CoV-2 (COVID-19) RNA [Presence] in Respiratory specimen by ISSA with probe detection negative negative Sars-cov-2 [facility] ([facility]) ID Date Data Source [id number] 10/15/2020 12:00:00 AM EDT [place] ([facility]) Name Value Range Interpretation Code Description Data Mora rce(s) Supporting Document(s) ID Date Data Source [id number] 10/15/2020 12:00:00 AM EDT [facility] ([facility]) Name Value Range Interpretation Code Description Data Mora rce(s) Supporting Document(s) SARS-CoV-2 (COVID-19) RNA [Presence] in Respiratory specimen by ISSA with probe detection negative negative Sars-cov-2 [place] ([facility]) ID Date Data Source [id number] 10/15/2020 12:00:00 AM EDT [facility] ([facility]) Name Value Range Interpretation Code Description Data Mora rce(s) Supporting Document(s) ID Date Data Source [id number] 10/15/2020 12:00:00 AM EDT [facility] ([facility]) Name Value Range Interpretation Code Description Data Mora rce(s) Supporting Document(s) SARS-CoV-2 (COVID-19) RNA [Presence] in Respiratory specimen by ISSA with probe detection negative negative Sars-cov-2 [facility] ([facility]) ID Date Data Source [id number] 10/15/2020 12:00:00 AM EDT [facility] ([facility]) Name Value Range Interpretation Code Description Data Mora rce(s) Supporting Document(s) ID Date Data Source [id number] 10/15/2020 12:00:00 AM EDT [facility] Name Value Range Interpretation Code Description Data Mora rce(s) Supporting Document(s) SARS-CoV-2 NEGATIVE [facility] This lab was ordered by [facility] and reported by [facility]. ID Date Data Source [id number] 10/15/2020 12:00:00 AM EDT [facility] ([facility]) Name Value Range Interpretation Code Description Data Mora rce(s) Supporting Document(s) SARS-CoV-2 (COVID-19) RNA [Presence] in Respiratory specimen by ISSA with probe detection negative negative Sars-cov-2 [facility] ([facility]) ID Date Data Source [id number] 10/15/2020 12:00:00 AM EDT [facility] ([facility]) Name Value Range Interpretation Code Description Data Mora rce(s) Supporting Document(s) ID Date Data Source [id number] 10/15/2020 12:00:00 AM EDT [facility] ([facility]) Name Value Range Interpretation Code Description Data Mora rce(s) Supporting Document(s) SARS-CoV-2 (COVID-19) RNA [Presence] in Respiratory specimen by ISSA with probe detection negative negative Sars-cov-2 [facility] ([facility]) ID Date Data Source [id number] 10/02/2020 02:38:00 PM EDT [facility] ([facility]) Name Value Range Interpretation Code Description Data Mora rce(s) Supporting Document(s) Alanine aminotransferase [Enzymatic activity/volume] in Serum or Pl asma 20 [facility] ([facility]) Albumin [Mass/volume] in Serum or Plasma 3.5 [facility] ([facility]) Calcium [Mass/volume] in Serum or Plasma 8.9 [facility] ([facility]) Carbon dioxide, total [Moles/volume] in Serum or Plasma 26 [facility] ([facility]) Chloride [Moles/volume] in Serum or Plasma 107 [facility] ([facility]) Alkaline phosphatase [Enzymatic activity/volume] in Serum or Plasma 1 31 [facility] ([facility]) Sodium 140 [facility] Potassium [Moles/volume] in Serum or Plasma 4.3 [facility] ([facility] Protein [Mass/volume] in Serum or Plasma 7.2 [facility] ([facility]) Aspartate aminotransferase [Enzymatic activity/volume] in Serum or Plasma 10 [facility] ([facility]) Glucose 119 70-100 [facility] Urea nitrogen [Mass/volume] in Serum or Plasma 8 [facility] ([facility]) Creatinine For GFR 0.67 [facility] ([facility]) ID Date Data Source [id number] 10/02/2020 02:38:00 PM EDT [facility] ([facility]) Name Value Range Interpretation Code Description Data Mora rce(s) Supporting Document(s) Hemoglobin A1c/Hemoglobin.total in Blood 6.1 [facility] ([facility]) ID Date Data Source [id number] 10/02/2020 02:38:00 PM EDT [facility] ([facility]) Name Value Range Interpretation Code Description Data Mora rce(s) Supporting Document(s) Triglycerides 309 [facility] ([facility]) Cholesterol 144 [facility] ([facility]) HDL 35 [facility] Cholesterol in LDL [Mass/volume] in Serum or Plasma by calculation 47 [facility] ([facility]) Chol/HDL Ratio 4.114 [facility] ([facility]) ID Date Data Source [id number] 10/02/2020 10:49:00 AM EDT [facility] ([facility]) Name Value Range Interpretation Code Description Data Mora rce(s) Supporting Document(s) white blood count 11.3 10 4.0-10.0 Above high normal White Blood Count [facility] ([facility]) hemoglobin 15.1 g/dL 12.0-15.5 Hemoglobin [facility] ([facility]) red blood count 4.73 10 4.00-5.40 Red Blood Count [facility] ([facility]) hematocrit 46.1 % 36.0-47.0 Hematocrit [facility] ([facility]) mean corpuscular volume 97.5 fL 80.0-96.0 Above high normal Mean Corpuscular Volume [facility] ([facility]) mean corpuscular hemoglobin 31.9 pg 27.0-33.0 Mean Cor puscular Hemoglobin [facility] ([facility]) mean corpuscular HGB conc 32.8 g/dL 32.0-36.5 Mean Corpu scular HGB Conc [facility] ([facility]) red cell distribution width 13.5 % 11.5-14.5 Red Cell Distribution Width [facility] ([facility]) platelet count, automated 459 10 150-450 Above high norm al Platelet Count, Automated [facility] ([facility]) neutrophils % 62.6 % 36.0-66.0 Neutrophils % [facility] ( [facility]) lymph % 26.7 % 24.0-44.0 Lymph % [place]) mono % 7.7 % 2.0-8.0 [place] % [place] ([facility]) eos % 1.9 % 0.0-3.0 Eos % [facility] ([facility]) baso % 0.7 % 0.0-1.0 Baso % [place] ([facility]) immature granulocyte % 0.4 % 0-3.0 Immature Gran ulocyte % [facility] ([facility]) nucleated red blood cell % 0.0 % 0-0 Nucleated Red Blood Cell % [facility] ([facility]) neutrophils # 7.1 10 1.5-8.5 Neutrophils # [facility] ( [facility]) lymph # 3.0 10 1.5-5.0 Lymph # [facility] ([facility]) mono # 0.9 10 0.0-0.8 Above high normal Parker # [facility] ([facility]) eos # 0.2 10 0.0-0.5 Eos # [facility] ([facility]) baso # 0.1 10 0.0-0.2 Baso # [facility] ([facility]) ID Date Data Source [id number] 10/02/2020 10:49:00 AM EDT [facility] ([facility]) Name Value Range Interpretation Code Description Data Mora rce(s) Supporting Document(s) triglycerides level 309 mg/dL <150 Above high normal Triglycer ides Level [facility] ([facility]) cholesterol level 144 mg/dL <200 Cholesterol Level [facility] ([facility]) Cholesterol in LDL [Mass/volume] in Serum or Plasma 47 mg/dL <1 00 LDL Cholesterol [facility] ([facility]) non-HDL-C 109 mg/dL Non-hdl-c [facility] ([facility]) HDL cholesterol 35 mg/dL >40 Below low normal HDL Cholestero l [facility] ([facility]) cholesterol risk ratio <5 Cholesterol R isk Ratio [facility] ([facility]) ID Date Data Source [id number] 10/02/2020 10:49:00 AM EDT [facility]) Name Value Range Interpretation Code Description Data Mora rce(s) Supporting Document(s) blood urea nitrogen 8 mg/dL 7-18 Blood Urea Nitro gen [facility] ([facility]) glucose, fasting 119 mg/dL 70-100 Above high normal Glucose, Fas ting [facility] ([facility]) glomerular filtration rate > 60.0 >58 Glomerula r Filtration Rate [facility] ([facility]) creatinine for GFR 0.67 mg/dL 0.55-1.30 Creatinine for GF R [facility] ([facility]) potassium serum 4.3 mEq/L 3.5-5.1 Potassium Serum ATHE NA ([facility]) chloride level 107 mEq/L 98-107 Chloride Level [facility] ([facility]) sodium level 140 mEq/L 136-145 Sodium Level [facility] ([facility]) anion gap 7 mEq/L 8-16 Below low normal Anion Gap [facility] ( [facility]) carbon dioxide level 26 mEq/L 21-32 Carbon Dioxide Level [facility] ([facility]) AST/SGOT 10 U/L 7-37 AST/SGOT [facility] ([facility]) ALT/SGPT 20 U/L 12-78 ALT/SGPT [facility] ([facility]) calcium level 8.9 mg/dL 8.5-10.1 Calcium Level [facility] ( [facility]) bilirubin,total 0.3 mg/dL 0.2-1.0 Bilirubin,total [facility] ([facility]) alkaline phosphatase 131 U/L 45-117 Above high normal Alkaline Phosphatase [facility] ([facility]) albumin 3.5 gm/dL 3.2-5.2 Albumin [facility] ([facility]) total protein 7.2 gm/dL 6.4-8.2 Total Protein [facility] ( [facility]) albumin/globulin ratio 1.2-2.2 Below low normal Albumin /globulin Ratio [facility] ([facility]) ID Date Data Source [id number] 10/02/2020 10:49:00 AM EDT [facility] ([facility]) Name Value Range Interpretation Code Description Data Mora rce(s) Supporting Document(s) estimated average glucose 128 mg/dL 60-110 Above high norm al Estimated Average Glucose [facility] ([facility]) Hemoglobin A1c/Hemoglobin.total in Blood 6.1 % Hemoglobin a1C [facility] ([facility]) ID Date Data Source [id number] 10/02/2020 10:49:00 AM EDT [facility] ([facility]) Name Value Range Interpretation Code Description Data Mora rce(s) Supporting Document(s) white blood count 11.3 10 4.0-10.0 Above high normal White Blood Count [facility] ([facility]) red blood count 4.73 10 4.00-5.40 Red Blood Count ATHE NA ([facility]) hematocrit 46.1 % 36.0-47.0 Hematocrit [facility] ([facility]) hemoglobin 15.1 g/dL 12.0-15.5 Hemoglobin [facility] ([facility]) mean corpuscular volume 97.5 fL 80.0-96.0 Above high normal Mean Corpuscular Volume [facility] ([facility]) mean corpuscular hemoglobin 31.9 pg 27.0-33.0 Mean Cor puscular Hemoglobin [facility] ([facility]) mean corpuscular HGB conc 32.8 g/dL 32.0-36.5 Mean Corpu scular HGB Conc [facility] ([facility]) red cell distribution width 13.5 % 11.5-14.5 Red Cell Distribution Width [facility] ([facility]) neutrophils % 62.6 % 36.0-66.0 Neutrophils % [facility] ( [facility]) platelet count, automated 459 10 150-450 Above high norm al Platelet Count, Automated [facility] ([facility]) mono % 7.7 % 2.0-8.0 [place] % [place] ([facility]) lymph % 26.7 % 24.0-44.0 Lymph % [place] ([facility]) eos % 1.9 % 0.0-3.0 Eos % [place] ([facility]) immature granulocyte % 0.4 % 0-3.0 Immature Gran ulocyte % [facility] ([facility]) baso % 0.7 % 0.0-1.0 Baso % [facility] ([facility]) neutrophils # 7.1 10 1.5-8.5 Neutrophils # [place] ( [facility]) nucleated red blood cell % 0.0 % 0-0 Nucleated Red Blood Cell % [facility] ([facility]) lymph # 3.0 10 1.5-5.0 Lymph # [facility] ([facility]) mono # 0.9 10 0.0-0.8 Above high normal Parker # [facility] ([facility]) baso # 0.1 10 0.0-0.2 Baso # [facility] ([facility]) eos # 0.2 10 0.0-0.5 Eos # [facility] ([facility]) ID Date Data Source [id number] 10/02/2020 10:49:00 AM EDT [place] ([facility]) Name Value Range Interpretation Code Description Data Mora rce(s) Supporting Document(s) cholesterol level 144 mg/dL <200 Cholesterol Level [place] ([facility]) triglycerides level 309 mg/dL <150 Above high normal Triglycer ides Level [facility] ([facility]) HDL cholesterol 35 mg/dL >40 Below low normal HDL Cholestero l [facility] ([facility]) Cholesterol in LDL [Mass/volume] in Serum or Plasma 47 mg/dL <1 00 LDL Cholesterol [facility] ([facility]) non-HDL-C 109 mg/dL Non-hdl-c [facility] ([facility]) cholesterol risk ratio <5 Cholesterol R isk Ratio [facility] ([facility]) ID Date Data Source [id number] 10/02/2020 10:49:00 AM EDT [place] ([facility]) Name Value Range Interpretation Code Description Data Mora rce(s) Supporting Document(s) glucose, fasting 119 mg/dL 70-100 Above high normal Glucose, Fas ting [facility] ([facility]) creatinine for GFR 0.67 mg/dL 0.55-1.30 Creatinine for GF R [facility] ([facility]) blood urea nitrogen 8 mg/dL 7-18 Blood Urea Nitro gen [facility] ([facility]) sodium level 140 mEq/L 136-145 Sodium Level [facility] ([facility]) potassium serum 4.3 mEq/L 3.5-5.1 Potassium Serum AT[facility] NA ([facility]) glomerular filtration rate > 60.0 >58 Glomerula r Filtration Rate [facility] ([facility]) carbon dioxide level 26 mEq/L 21-32 Carbon Dioxide Level [facility] ([facility]) chloride level 107 mEq/L 98-107 Chloride Level [facility] ([facility]) anion gap 7 mEq/L 8-16 Below low normal Anion Gap [facility] ( [facility]) calcium level 8.9 mg/dL 8.5-10.1 Calcium Level [facility] ( [facility]) AST/SGOT 10 U/L 7-37 AST/SGOT [facility] ([facility]) ALT/SGPT 20 U/L 12-78 ALT/SGPT [facility] ([facility]) alkaline phosphatase 131 U/L 45-117 Above high normal Alkaline Phosphatase [facility] ([facility]) bilirubin,total 0.3 mg/dL 0.2-1.0 Bilirubin,total ATHE NA ([facility]) total protein 7.2 gm/dL 6.4-8.2 Total Protein [facility] ( [facility]) albumin 3.5 gm/dL 3.2-5.2 Albumin [facility] ([facility]) albumin/globulin ratio 1.2-2.2 Below low normal Albumin /globulin Ratio [facility] ([facility]) ID Date Data Source [id number] 10/02/2020 10:49:00 AM EDT [facility] ([facility]) Name Value Range Interpretation Code Description Data Mora rce(s) Supporting Document(s) estimated average glucose 128 mg/dL 60-110 Above high norm al Estimated Average Glucose [facility] ([facility]) Hemoglobin A1c/Hemoglobin.total in Blood 6.1 % Hemoglobin a1C [facility] ([facility]) ID Date Data Source [id number] 10/02/2020 10:49:00 AM EDT [facility] ([facility]) Name Value Range Interpretation Code Description Data Mora rce(s) Supporting Document(s) white blood count 11.3 10 4.0-10.0 Above high normal White Blood Count [facility] ([facility]) red blood count 4.73 10 4.00-5.40 Red Blood Count [facility] ([facility]) hemoglobin 15.1 g/dL 12.0-15.5 Hemoglobin [facility] ([facility]) hematocrit 46.1 % 36.0-47.0 Hematocrit [facility] ([facility]) mean corpuscular hemoglobin 31.9 pg 27.0-33.0 Mean Cor puscular Hemoglobin [facility] ([facility]) mean corpuscular volume 97.5 fL 80.0-96.0 Above high normal Mean Corpuscular Volume [facility] ([facility]) red cell distribution width 13.5 % 11.5-14.5 Red Cell Distribution Width [facility] ([facility]) mean corpuscular HGB conc 32.8 g/dL 32.0-36.5 Mean Corpu scular HGB Conc [facility] ([facility]) platelet count, automated 459 10 150-450 Above high norm al Platelet Count, Automated [facility] ([facility]) neutrophils % 62.6 % 36.0-66.0 Neutrophils % [facility] ( [facility]) lymph % 26.7 % 24.0-44.0 Lymph % [facility] ([facility]) mono % 7.7 % 2.0-8.0 Parker % [facility] ([facility]) baso % 0.7 % 0.0-1.0 Baso % [place] ([facility]) eos % 1.9 % 0.0-3.0 Eos % [place] ([facility]) nucleated red blood cell % 0.0 % 0-0 Nucleated Red Blood Cell % [place] ([facility]) immature granulocyte % 0.4 % 0-3.0 Immature Gran ulocyte % [place] ([facility]) lymph # 3.0 10 1.5-5.0 Lymph # [place] ([facility]) neutrophils # 7.1 10 1.5-8.5 Neutrophils # [place] ( [facility]) mono # 0.9 10 0.0-0.8 Above high normal Parker # [facility] ([facility]) baso # 0.1 10 0.0-0.2 Baso # [facility] ([facility]) eos # 0.2 10 0.0-0.5 Eos # [facility] ([facility]) ID Date Data Source [id number] 10/02/2020 10:49:00 AM EDT [place] ([facility]) Name Value Range Interpretation Code Description Data Mora rce(s) Supporting Document(s) triglycerides level 309 mg/dL <150 Above high normal Triglycer ides Level [facility] ([facility]) cholesterol level 144 mg/dL <200 Cholesterol Level [facility] ([facility]) HDL cholesterol 35 mg/dL >40 Below low normal HDL Cholestero l [facility] ([facility]) non-HDL-C 109 mg/dL Non-hdl-c [place] ([facility]) Cholesterol in LDL [Mass/volume] in Serum or Plasma 47 mg/dL <1 00 LDL Cholesterol [facility] ([facility]) cholesterol risk ratio <5 Cholesterol R isk Ratio [facility] ([facility]) ID Date Data Source [id number] 10/02/2020 10:49:00 AM EDT [place] ([facility]) Name Value Range Interpretation Code Description Data Mora rce(s) Supporting Document(s) glucose, fasting 119 mg/dL 70-100 Above high normal Glucose, Fas ting [facility] ([facility]) blood urea nitrogen 8 mg/dL 7-18 Blood Urea Nitro gen [facility] ([facility]) glomerular filtration rate > 60.0 >58 Glomerula r Filtration Rate [facility] ([facility]) sodium level 140 mEq/L 136-145 Sodium Level [facility] ([facility]) creatinine for GFR 0.67 mg/dL 0.55-1.30 Creatinine for GF R [facility] ([facility]) potassium serum 4.3 mEq/L 3.5-5.1 Potassium Serum ATHE NA ([facility]) chloride level 107 mEq/L 98-107 Chloride Level [facility] ([facility]) anion gap 7 mEq/L 8-16 Below low normal Anion Gap [facility] ( [facility]) carbon dioxide level 26 mEq/L 21-32 Carbon Dioxide Level [facility] ([facility]) calcium level 8.9 mg/dL 8.5-10.1 Calcium Level [facility] ( [facility]) ALT/SGPT 20 U/L 12-78 ALT/SGPT [facility] ([facility]) AST/SGOT 10 U/L 7-37 AST/SGOT [facility] ([facility]) alkaline phosphatase 131 U/L 45-117 Above high normal Alkaline Phosphatase [facility] ([facility]) bilirubin,total 0.3 mg/dL 0.2-1.0 Bilirubin,total [facility] ([facility]) total protein 7.2 gm/dL 6.4-8.2 Total Protein [facility] ( [facility]) albumin 3.5 gm/dL 3.2-5.2 Albumin [facility] ([facility]) albumin/globulin ratio 1.2-2.2 Below low normal Albumin /globulin Ratio [facility] ([facility]) ID Date Data Source [id number] 10/02/2020 10:49:00 AM EDT [facility]) Name Value Range Interpretation Code Description Data Mora rce(s) Supporting Document(s) Hemoglobin A1c/Hemoglobin.total in Blood 6.1 % Hemoglobin a1C [facility] ([facility]) estimated average glucose 128 mg/dL 60-110 Above high norm al Estimated Average Glucose [place] ([facility]) ID Date Data Source [id number] 10/02/2020 10:49:00 AM EDT [place] ([facility]) Name Value Range Interpretation Code Description Data Mora rce(s) Supporting Document(s) white blood count 11.3 10 4.0-10.0 Above high normal White Blood Count [facility] ([facility]) red blood count 4.73 10 4.00-5.40 Red Blood Count [facility] ([facility]) hematocrit 46.1 % 36.0-47.0 Hematocrit [facility] ([facility]) hemoglobin 15.1 g/dL 12.0-15.5 Hemoglobin [facility] ([facility]) mean corpuscular volume 97.5 fL 80.0-96.0 Above high normal Mean Corpuscular Volume [facility] ([facility]) mean corpuscular hemoglobin 31.9 pg 27.0-33.0 Mean Cor puscular Hemoglobin [facility] ([facility]) mean corpuscular HGB conc 32.8 g/dL 32.0-36.5 Mean Corpu scular HGB Conc [facility] ([facility]) platelet count, automated 459 10 150-450 Above high norm al Platelet Count, Automated [facility] ([facility]) red cell distribution width 13.5 % 11.5-14.5 Red Cell Distribution Width [facility] ([facility]) neutrophils % 62.6 % 36.0-66.0 Neutrophils % [facility] ( [facility]) lymph % 26.7 % 24.0-44.0 Lymph % [facility] ([facility]) mono % 7.7 % 2.0-8.0 [place] % [facility] ([facility]) baso % 0.7 % 0.0-1.0 Baso % [facility] ([facility]) eos % 1.9 % 0.0-3.0 Eos % [facility] ([facility]) nucleated red blood cell % 0.0 % 0-0 Nucleated Red Blood Cell % [facility] ([facility]) immature granulocyte % 0.4 % 0-3.0 Immature Gran ulocyte % [facility] ([facility]) neutrophils # 7.1 10 1.5-8.5 Neutrophils # [facility] ( [facility]) lymph # 3.0 10 1.5-5.0 Lymph # [facility] ([facility]) mono # 0.9 10 0.0-0.8 Above high normal [place] # [facility] ([facility]) eos # 0.2 10 0.0-0.5 Eos # [facility] ([facility]) baso # 0.1 10 0.0-0.2 Baso # [facility] ([facility]) ID Date Data Source [id number] 10/02/2020 10:49:00 AM EDT [place] ([facility]) Name Value Range Interpretation Code Description Data Mora rce(s) Supporting Document(s) cholesterol level 144 mg/dL <200 Cholesterol Level [facility] ([facility]) triglycerides level 309 mg/dL <150 Above high normal Triglycer ides Level [facility] ([facility]) Cholesterol in LDL [Mass/volume] in Serum or Plasma 47 mg/dL <1 00 LDL Cholesterol [facility] ([facility]) HDL cholesterol 35 mg/dL >40 Below low normal HDL Cholestero l [facility] ([facility]) non-HDL-C 109 mg/dL Non-hdl-c [facility] ([facility]) cholesterol risk ratio <5 Cholesterol R isk Ratio [facility] ([facility]) ID Date Data Source [id number] 10/02/2020 10:49:00 AM EDT [facility] ([facility]) Name Value Range Interpretation Code Description Data Mora rce(s) Supporting Document(s) glucose, fasting 119 mg/dL 70-100 Above high normal Glucose, Fas ting [facility] ([facility]) blood urea nitrogen 8 mg/dL 7-18 Blood Urea Nitro gen [facility] ([facility]) creatinine for GFR 0.67 mg/dL 0.55-1.30 Creatinine for GF R [facility] ([facility]) glomerular filtration rate > 60.0 >58 Glomerula r Filtration Rate [facility] ([facility]) potassium serum 4.3 mEq/L 3.5-5.1 Potassium Serum ATHE NA ([facility]) sodium level 140 mEq/L 136-145 Sodium Level [facility] (No [facility], [facility]) chloride level 107 mEq/L 98-107 Chloride Level [facility] ([facility]) carbon dioxide level 26 mEq/L 21-32 Carbon Dioxide Level [facility] ([facility]) anion gap 7 mEq/L 8-16 Below low normal Anion Gap [facility] ( [facility]) calcium level 8.9 mg/dL 8.5-10.1 Calcium Level [place] ( [facility]) AST/SGOT 10 U/L 7-37 AST/SGOT [facility] ([facility]) ALT/SGPT 20 U/L 12-78 ALT/SGPT [facility] ([facility]) alkaline phosphatase 131 U/L 45-117 Above high normal Alkaline Phosphatase [facility] ([facility]) bilirubin,total 0.3 mg/dL 0.2-1.0 Bilirubin,total ATHE NA ([facility]) total protein 7.2 gm/dL 6.4-8.2 Total Protein [facility] ( [facility]) albumin 3.5 gm/dL 3.2-5.2 Albumin [facility] ([facility]) albumin/globulin ratio 1.2-2.2 Below low normal Albumin /globulin Ratio [facility] ([facility]) ID Date Data Source [id number] 10/02/2020 10:49:00 AM EDT [place] ([facility]) Name Value Range Interpretation Code Description Data Mora rce(s) Supporting Document(s) Hemoglobin A1c/Hemoglobin.total in Blood 6.1 % Hemoglobin a1C [facility] ([facility]) estimated average glucose 128 mg/dL 60-110 Above high norm al Estimated Average Glucose [facility] ([facility]) ID Date Data Source [id number] 10/02/2020 10:49:00 AM EDT [facility] ([facility]) Name Value Range Interpretation Code Description Data Mora rce(s) Supporting Document(s) white blood count 11.3 10 4.0-10.0 Above high normal White Blood Count [facility] ([facility]) red blood count 4.73 10 4.00-5.40 Red Blood Count [facility] ([facility]) hemoglobin 15.1 g/dL 12.0-15.5 Hemoglobin [facility] ([facility]) hematocrit 46.1 % 36.0-47.0 Hematocrit [facility] ([facility]) mean corpuscular volume 97.5 fL 80.0-96.0 Above high normal Mean Corpuscular Volume [place] ([facility]) mean corpuscular HGB conc 32.8 g/dL 32.0-36.5 Mean Corpu scular HGB Conc [facility] ([facility]) mean corpuscular hemoglobin 31.9 pg 27.0-33.0 Mean Cor puscular Hemoglobin [facility] ([facility]) platelet count, automated 459 10 150-450 Above high norm al Platelet Count, Automated [facility] ([facility]) red cell distribution width 13.5 % 11.5-14.5 Red Cell Distribution Width [facility] ([facility]) neutrophils % 62.6 % 36.0-66.0 Neutrophils % [facility] ( [facility]) lymph % 26.7 % 24.0-44.0 Lymph % [facility] ([facility]) mono % 7.7 % 2.0-8.0 [place] % [facility] ([facility]) eos % 1.9 % 0.0-3.0 Eos % [facility] ([facility]) baso % 0.7 % 0.0-1.0 Baso % [facility] ([facility]) immature granulocyte % 0.4 % 0-3.0 Immature Gran ulocyte % [facility] ([facility]) neutrophils # 7.1 10 1.5-8.5 Neutrophils # [facility] ( [facility]) nucleated red blood cell % 0.0 % 0-0 Nucleated Red Blood Cell % [facility] ([facility]) mono # 0.9 10 0.0-0.8 Above high normal [place] # [facility] ([facility]) lymph # 3.0 10 1.5-5.0 Lymph # [facility] ([facility]) eos # 0.2 10 0.0-0.5 Eos # [facility] ([facility]) baso # 0.1 10 0.0-0.2 Baso # [facility] ([facility]) ID Date Data Source [id number] 10/02/2020 10:49:00 AM EDT [place] ([facility]) Name Value Range Interpretation Code Description Data Mora rce(s) Supporting Document(s) triglycerides level 309 mg/dL <150 Above high normal Triglycer ides Level [facility] ([facility]) cholesterol level 144 mg/dL <200 Cholesterol Level [facility] ([facility]) HDL cholesterol 35 mg/dL >40 Below low normal HDL Cholestero l [facility] ([facility]) Cholesterol in LDL [Mass/volume] in Serum or Plasma 47 mg/dL <1 00 LDL Cholesterol [facility] ([facility]) non-HDL-C 109 mg/dL Non-hdl-c [facility] ([facility]) cholesterol risk ratio <5 Cholesterol R isk Ratio [place] ([facility]) ID Date Data Source [id number] 10/02/2020 10:49:00 AM EDT [facility] ([facility]) Name Value Range Interpretation Code Description Data Mora rce(s) Supporting Document(s) glucose, fasting 119 mg/dL 70-100 Above high normal Glucose, Fas ting [facility] ([facility]) blood urea nitrogen 8 mg/dL 7-18 Blood Urea Nitro gen [facility] ([facility]) creatinine for GFR 0.67 mg/dL 0.55-1.30 Creatinine for GF R [facility] ([facility]) sodium level 140 mEq/L 136-145 Sodium Level [facility] (No [facility], [facility]) glomerular filtration rate > 60.0 >58 Glomerula r Filtration Rate [facility] ([facility]) potassium serum 4.3 mEq/L 3.5-5.1 Potassium Serum ATHE NA ([facility]) chloride level 107 mEq/L 98-107 Chloride Level [place] ([facility]) carbon dioxide level 26 mEq/L 21-32 Carbon Dioxide Level [facility] ([facility]) anion gap 7 mEq/L 8-16 Below low normal Anion Gap [facility] ( [facility]) calcium level 8.9 mg/dL 8.5-10.1 Calcium Level [facility] ( [facility]) AST/SGOT 10 U/L 7-37 AST/SGOT [facility] ([facility]) ALT/SGPT 20 U/L 12-78 ALT/SGPT [place] ([facility]) bilirubin,total 0.3 mg/dL 0.2-1.0 Bilirubin,total AT[facility]) alkaline phosphatase 131 U/L 45-117 Above high normal Alkaline Phosphatase [facility] ([facility]) total protein 7.2 gm/dL 6.4-8.2 Total Protein [facility] ( [facility]) albumin 3.5 gm/dL 3.2-5.2 Albumin [facility] ([facility]) albumin/globulin ratio 1.2-2.2 Below low normal Albumin /globulin Ratio [facility] ([facility]) ID Date Data Source [id number] 10/02/2020 10:49:00 AM EDT [facility] ([facility]) Name Value Range Interpretation Code Description Data Mora rce(s) Supporting Document(s) Hemoglobin A1c/Hemoglobin.total in Blood 6.1 % Hemoglobin a1C [facility] ([facility]) estimated average glucose 128 mg/dL 60-110 Above high norm al Estimated Average Glucose [facility] ([facility]) ID Date Data Source [id number] 10/02/2020 10:49:00 AM EDT [facility] ([facility]) Name Value Range Interpretation Code Description Data Mora rce(s) Supporting Document(s) white blood count 11.3 10 4.0-10.0 Above high normal White Blood Count [facility] ([facility]) red blood count 4.73 10 4.00-5.40 Red Blood Count [facility] ([facility]) hematocrit 46.1 % 36.0-47.0 Hematocrit [facility] ([facility]) hemoglobin 15.1 g/dL 12.0-15.5 Hemoglobin [facility] ([facility]) mean corpuscular volume 97.5 fL 80.0-96.0 Above high normal Mean Corpuscular Volume [facility] ([facility]) mean corpuscular hemoglobin 31.9 pg 27.0-33.0 Mean Cor puscular Hemoglobin [facility] ([facility]) mean corpuscular HGB conc 32.8 g/dL 32.0-36.5 Mean Corpu scular HGB Conc [facility] ([facility]) red cell distribution width 13.5 % 11.5-14.5 Red Cell Distribution Width [facility] ([facility]) platelet count, automated 459 10 150-450 Above high norm al Platelet Count, Automated [facility] ([facility]) lymph % 26.7 % 24.0-44.0 Lymph % [facility] ([facility]) neutrophils % 62.6 % 36.0-66.0 Neutrophils % [facility] ( [facility]) eos % 1.9 % 0.0-3.0 Eos % [facility] ([facility]) mono % 7.7 % 2.0-8.0 [place] % [facility] ([facility]) baso % 0.7 % 0.0-1.0 Baso % [facility] ([facility]) immature granulocyte % 0.4 % 0-3.0 Immature Gran ulocyte % [facility] ([facility]) nucleated red blood cell % 0.0 % 0-0 Nucleated Red Blood Cell % [facility] ([facility]) neutrophils # 7.1 10 1.5-8.5 Neutrophils # [facility] ( [facility]) eos # 0.2 10 0.0-0.5 Eos # [facility] ([facility]) mono # 0.9 10 0.0-0.8 Above high normal [place] # [facility] ([facility]) lymph # 3.0 10 1.5-5.0 Lymph # [facility] ([facility]) baso # 0.1 10 0.0-0.2 Baso # [facility] ([facility]) ID Date Data Source [id number] 10/02/2020 10:49:00 AM EDT [place] ([facility]) Name Value Range Interpretation Code Description Data Mora rce(s) Supporting Document(s) triglycerides level 309 mg/dL <150 Above high normal Triglycer ides Level [facility] ([facility]) HDL cholesterol 35 mg/dL >40 Below low normal HDL Cholestero l [facility] ([facility]) cholesterol level 144 mg/dL <200 Cholesterol Level [facility] ([facility]) non-HDL-C 109 mg/dL Non-hdl-c [facility] ([facility]) Cholesterol in LDL [Mass/volume] in Serum or Plasma 47 mg/dL <1 00 LDL Cholesterol [facility] ([facility]) cholesterol risk ratio <5 Cholesterol R isk Ratio [place] ([facility]) ID Date Data Source [id number] 10/02/2020 10:49:00 AM EDT [place] ([facility]) Name Value Range Interpretation Code Description Data Mora rce(s) Supporting Document(s) glucose, fasting 119 mg/dL 70-100 Above high normal Glucose, Fas ting [facility] ([facility]) blood urea nitrogen 8 mg/dL 7-18 Blood Urea Nitro gen [facility] ([facility]) creatinine for GFR 0.67 mg/dL 0.55-1.30 Creatinine for GF R [facility] ([facility]) glomerular filtration rate > 60.0 >58 Glomerula r Filtration Rate [facility] ([facility]) sodium level 140 mEq/L 136-145 Sodium Level [facility] (No [facility], [facility]) potassium serum 4.3 mEq/L 3.5-5.1 Potassium Serum ATHE NA ([facility]) chloride level 107 mEq/L 98-107 Chloride Level [facility] ([facility]) carbon dioxide level 26 mEq/L 21-32 Carbon Dioxide Level [facility] ([facility]) anion gap 7 mEq/L 8-16 Below low normal Anion Gap [facility] ( [facility]) AST/SGOT 10 U/L 7-37 AST/SGOT [facility] ([facility]) calcium level 8.9 mg/dL 8.5-10.1 Calcium Level [facility] ( [facility]) alkaline phosphatase 131 U/L 45-117 Above high normal Alkaline Phosphatase [facility] ([facility]) ALT/SGPT 20 U/L 12-78 ALT/SGPT [facility] ([facility]) total protein 7.2 gm/dL 6.4-8.2 Total Protein [facility] ( [facility]) bilirubin,total 0.3 mg/dL 0.2-1.0 Bilirubin,total AT[facility] ([facility]) albumin 3.5 gm/dL 3.2-5.2 Albumin [facility] ([facility]) albumin/globulin ratio 1.2-2.2 Below low normal Albumin /globulin Ratio [facility] ([facility]) ID Date Data Source [id number] 10/02/2020 10:49:00 AM EDT [facility] ([facility]) Name Value Range Interpretation Code Description Data Mora rce(s) Supporting Document(s) Hemoglobin A1c/Hemoglobin.total in Blood 6.1 % Hemoglobin a1C [facility] ([facility]) estimated average glucose 128 mg/dL 60-110 Above high norm al Estimated Average Glucose [facility] ([facility]) ID Date Data Source [id number] 08/20/2020 01:14:00 PM EDT [facility]) Name Value Range Interpretation Code Description Data Mora rce(s) Supporting Document(s) sars-cov-2 negative negative Sars-cov-2 [place] ([facility]) ID Date Data Source [id number] 08/20/2020 01:14:00 PM EDT [facility]) Name Value Range Interpretation Code Description Data Mora rce(s) Supporting Document(s) sars-cov-2 negative negative Sars-cov-2 [facility]) ID Date Data Source [id number] 08/20/2020 01:14:00 PM EDT [facility]) Name Value Range Interpretation Code Description Data Mora rce(s) Supporting Document(s) sars-cov-2 negative negative Sars-cov-2 [facility]) ID Date Data Source [id number] 08/20/2020 01:14:00 PM EDT [facility]) Name Value Range Interpretation Code Description Data Mora rce(s) Supporting Document(s) sars-cov-2 negative negative Sars-cov-2 [facility]) ID Date Data Source [id number] 08/20/2020 01:14:00 PM EDT [facility]) Name Value Range Interpretation Code Description Data Mora rce(s) Supporting Document(s) sars-cov-2 negative negative Sars-cov-2 [facility]) ID Date Data Source [id number] 08/20/2020 01:14:00 PM EDT [facility]) Name Value Range Interpretation Code Description Data Mora rce(s) Supporting Document(s) sars-cov-2 negative negative Sars-cov-2 [place] ([facility]) ID Date Data Source [id number] 08/20/2020 01:14:00 PM EDT [facility] ([facility]) Name Value Range Interpretation Code Description Data Mora rce(s) Supporting Document(s) sars-cov-2 negative negative Sars-cov-2 [place] ([facility]) ID Date Data Source [id number] 08/20/2020 01:14:00 PM EDT [place] ([facility]) Name Value Range Interpretation Code Description Data Mora rce(s) Supporting Document(s) sars-cov-2 negative negative Sars-cov-2 [place] ([facility]) ID Date Data Source [id number] 08/20/2020 01:10:00 PM EDT [facility] Name Value Range Interpretation Code Description Data Mora rce(s) Supporting Document(s) SARS coronavirus 2 RdRp gene [Presence] in Respiratory specimen by [facility] with probe detection Not detected [facility] This lab was ordered by [facility] and reported by [facility]. ID Date Data Source [id number] 05/23/2020 09:00:00 AM EST [place] ([facility]) Name Value Range Interpretation Code Description Data Mora rce(s) Supporting Document(s) Hemoglobin A1c/Hemoglobin.total in Blood 6.1 % Hemoglobin a1C [place] ([facility]) estimated average glucose 128 mg/dL 60-110 Above high norm al Estimated Average Glucose [place] ([facility]) ID Date Data Source [id number] 05/23/2020 09:00:00 AM EST [place] ([facility]) Name Value Range Interpretation Code Description Data Mora rce(s) Supporting Document(s) HDL cholesterol 37 mg/dL >40 Below low normal HDL Cholestero l [place] ([facility]) cholesterol level 155 mg/dL <200 Cholesterol Level [facility] ([facility]) triglycerides level 228 mg/dL <150 Above high normal Triglycer ides Level [facility] ([facility]) non-HDL-C 118 mg/dL Non-hdl-c [facility] ([facility]) cholesterol risk ratio <5 Cholesterol R isk Ratio [facility] ([facility]) Cholesterol in LDL [Mass/volume] in Serum or Plasma 72 mg/dL <1 00 LDL Cholesterol [facility] ([facility]) ID Date Data Source [id number] 05/23/2020 09:00:00 AM EST [facility] ([facility]) Name Value Range Interpretation Code Description Data Mora rce(s) Supporting Document(s) blood urea nitrogen 11 mg/dL 7-18 Blood Urea Nitro gen [facility] ([facility]) glucose, fasting 108 mg/dL 70-100 Above high normal Glucose, Fas ting [facility] ([facility]) creatinine for GFR 0.72 mg/dL 0.55-1.30 Creatinine for GF R [facility] ([facility]) glomerular filtration rate > 60.0 >58 Glomerula r Filtration Rate [facility] ([facility]) sodium level 139 mEq/L 136-145 Sodium Level [facility] (No [facility]) carbon dioxide level 25 mEq/L 21-32 Carbon Dioxide Level [facility] ([facility]) chloride level 107 mEq/L 98-107 Chloride Level [facility] ([facility]) potassium serum 4.4 mEq/L 3.5-5.1 Potassium Serum ATHE NA ([facility]) anion gap 7 mEq/L 8-16 Below low normal Anion Gap [facility] ( [facility]) calcium level 8.8 mg/dL 8.5-10.1 Calcium Level [facility] ( [facility]) AST/SGOT 9 U/L 7-37 AST/SGOT [facility] ([facility]) ALT/SGPT 19 U/L 12-78 ALT/SGPT [facility] ([facility]) alkaline phosphatase 118 U/L 45-117 Above high normal Alkaline Phosphatase [facility] ([facility]) bilirubin,total 0.4 mg/dL 0.2-1.0 Bilirubin,total ATHE NA ([facility]) albumin 3.5 gm/dL 3.2-5.2 Albumin [facility] ([facility]) total protein 6.9 gm/dL 6.4-8.2 Total Protein [facility] ( [facility]) albumin/globulin ratio 1.2-2.2 Below low normal Albumin /globulin Ratio [facility] ([facility]) ID Date Data Source [id number] 05/23/2020 09:00:00 AM EST [facility] ([facility]) Name Value Range Interpretation Code Description Data Mora rce(s) Supporting Document(s) white blood count 10.6 10 4.0-10.0 Above high normal White Blood Count [facility] ([facility]) red blood count 4.71 10 4.00-5.40 Red Blood Count [facility] ([facility]) mean corpuscular volume 95.1 fL 80.0-96.0 Mean Corpusc ular Volume [facility] ([facility]) hemoglobin 14.7 g/dL 12.0-15.5 Hemoglobin [facility] ([facility]) hematocrit 44.8 % 36.0-47.0 Hematocrit [facility] ([facility]) mean corpuscular hemoglobin 31.2 pg 27.0-33.0 Mean Cor puscular Hemoglobin [facility] ([facility]) mean corpuscular HGB conc 32.8 g/dL 32.0-36.5 Mean Corpu scular HGB Conc [facility] ([facility]) neutrophils % 65.7 % 36.0-66.0 Neutrophils % [facility] ( [facility]) red cell distribution width 13.4 % 11.5-14.5 Red Cell Distribution Width [facility] ([facility]) platelet count, automated 408 10 150-450 Platelet C ount, Automated [facility] ([facility]) eos % 1.4 % 0.0-3.0 Eos % [facility] ([facility]) lymph % 24.4 % 24.0-44.0 Lymph % [facility] ([facility]) mono % 7.5 % 0.0-5.0 Above high normal [place] % [facility] ([facility]) nucleated red blood cell % 0.0 % 0-0 Nucleated Red Blood Cell % [facility] ([facility]) immature granulocyte % 0.5 % 0-3.0 Immature Gran ulocyte % [facility] ([facility]) baso % 0.5 % 0.0-1.0 Baso % [facility] ([facility]) neutrophils # 7.0 10 1.5-8.5 Neutrophils # [facility] ( [facility]) lymph # 2.6 10 1.5-5.0 Lymph # [facility] ([facility]) baso # 0.1 10 0.0-0.2 Baso # [facility] ([facility]) mono # 0.8 10 0.0-0.8 [place] # [facility] ([facility]) eos # 0.2 10 0.0-0.5 Eos # [facility] ([facility]) ID Date Data Source [id number] 05/23/2020 09:00:00 AM EST [facility] ([facility]) Name Value Range Interpretation Code Description Data Mora rce(s) Supporting Document(s) Hemoglobin A1c/Hemoglobin.total in Blood 6.1 % Hemoglobin a1C [facility] ([facility]) estimated average glucose 128 mg/dL 60-110 Above high norm al Estimated Average Glucose [place] ([facility]) ID Date Data Source [id number] 05/23/2020 09:00:00 AM EST [facility] ([facility]) Name Value Range Interpretation Code Description Data Mora rce(s) Supporting Document(s) triglycerides level 228 mg/dL <150 Above high normal Triglycer ides Level [facility] ([facility]) HDL cholesterol 37 mg/dL >40 Below low normal HDL Cholestero l [facility] ([facility]) cholesterol level 155 mg/dL <200 Cholesterol Level [facility] ([facility]) non-HDL-C 118 mg/dL Non-hdl-c [facility] ([facility]) Cholesterol in LDL [Mass/volume] in Serum or Plasma 72 mg/dL <1 00 LDL Cholesterol [facility] ([facility]) cholesterol risk ratio <5 Cholesterol R isk Ratio [facility] ([facility]) ID Date Data Source [id number] 05/23/2020 09:00:00 AM EST [facility] ([facility]) Name Value Range Interpretation Code Description Data Mora rce(s) Supporting Document(s) glucose, fasting 108 mg/dL 70-100 Above high normal Glucose, Fas ting [facility] ([facility]) creatinine for GFR 0.72 mg/dL 0.55-1.30 Creatinine for GF R [facility] ([facility]) blood urea nitrogen 11 mg/dL 7-18 Blood Urea Nitro gen [facility] ([facility]) sodium level 139 mEq/L 136-145 Sodium Level [facility] (No [facility]) potassium serum 4.4 mEq/L 3.5-5.1 Potassium Serum ATHE NA ([facility]) glomerular filtration rate > 60.0 >58 [place] r Filtration Rate [facility] ([facility]) chloride level 107 mEq/L 98-107 Chloride Level [place] ([facility]) carbon dioxide level 25 mEq/L 21-32 Carbon Dioxide Level [facility] ([facility]) calcium level 8.8 mg/dL 8.5-10.1 Calcium Level [facility] ( [facility]) AST/SGOT 9 U/L 7-37 AST/SGOT [facility] ([facility]) anion gap 7 mEq/L 8-16 Below low normal Anion Gap [facility] ( [facility]) ALT/SGPT 19 U/L 12-78 ALT/SGPT [facility] ([facility]) bilirubin,total 0.4 mg/dL 0.2-1.0 Bilirubin,total ATHE NA ([facility]) alkaline phosphatase 118 U/L 45-117 Above high normal Alkaline Phosphatase [facility] ([facility]) albumin 3.5 gm/dL 3.2-5.2 Albumin [facility] ([facility]) albumin/globulin ratio 1.2-2.2 Below low normal Albumin /globulin Ratio [facility] ([facility]) total protein 6.9 gm/dL 6.4-8.2 Total Protein [facility] ( [facility]) ID Date Data Source [id number] 05/23/2020 09:00:00 AM EST [facility] ([facility]) Name Value Range Interpretation Code Description Data Mora rce(s) Supporting Document(s) white blood count 10.6 10 4.0-10.0 Above high normal White Blood Count [facility] ([facility]) red blood count 4.71 10 4.00-5.40 Red Blood Count [facility] ([facility]) hematocrit 44.8 % 36.0-47.0 Hematocrit [facility] ([facility]) hemoglobin 14.7 g/dL 12.0-15.5 Hemoglobin [facility] ([facility]) mean corpuscular volume 95.1 fL 80.0-96.0 Mean Corpusc ular Volume [facility] ([facility]) mean corpuscular HGB conc 32.8 g/dL 32.0-36.5 Mean Corpu scular HGB Conc [facility] ([facility]) mean corpuscular hemoglobin 31.2 pg 27.0-33.0 Mean Cor puscular Hemoglobin [facility] ([facility]) red cell distribution width 13.4 % 11.5-14.5 Red Cell Distribution Width [facility] ([facility]) platelet count, automated 408 10 150-450 Platelet C ount, Automated [facility] ([facility]) mono % 7.5 % 0.0-5.0 Above high normal [place] % [facility] ([facility]) lymph % 24.4 % 24.0-44.0 Lymph % [facility] ([facility]) neutrophils % 65.7 % 36.0-66.0 Neutrophils % [facility] ( [facility]) eos % 1.4 % 0.0-3.0 Eos % [facility] ([facility]) baso % 0.5 % 0.0-1.0 Baso % [facility] ([facility]) immature granulocyte % 0.5 % 0-3.0 Immature Gran ulocyte % [facility] ([facility]) nucleated red blood cell % 0.0 % 0-0 Nucleated Red Blood Cell % [facility] ([facility]) neutrophils # 7.0 10 1.5-8.5 Neutrophils # [facility] ( [facility] [facility] mono # 0.8 10 0.0-0.8 [place] # RAD[facility] ([facility]) eos # 0.2 10 0.0-0.5 Eos # [facility] ([facility]) lymph # 2.6 10 1.5-5.0 Lymph # [facility] ([facility]) baso # 0.1 10 0.0-0.2 Baso # [facility] ([facility]) ID Date Data Source [id number] 05/23/2020 09:00:00 AM EST RAD[facility] ([facility]) Name Value Range Interpretation Code Description Data Mora rce(s) Supporting Document(s) Hemoglobin A1c/Hemoglobin.total in Blood 6.1 % Hemoglobin a1C [facility] ([facility]) estimated average glucose 128 mg/dL 60-110 Above high norm al Estimated Average Glucose [facility] ([facility]) ID Date Data Source [id number] 05/23/2020 09:00:00 AM EST [facility] ([facility]) Name Value Range Interpretation Code Description Data Mora rce(s) Supporting Document(s) triglycerides level 228 mg/dL <150 Above high normal Triglycer ides Level [facility] ([facility]) cholesterol level 155 mg/dL <200 Cholesterol Level [facility] ([facility]) HDL cholesterol 37 mg/dL >40 Below low normal HDL Cholestero l [facility] ([facility]) non-HDL-C 118 mg/dL Non-hdl-c [facility] ([facility]) Cholesterol in LDL [Mass/volume] in Serum or Plasma 72 mg/dL <1 00 LDL Cholesterol [facility] ([facility]) cholesterol risk ratio <5 Cholesterol R isk Ratio [facility] ([facility]) ID Date Data Source [id number] 05/23/2020 09:00:00 AM EST RAD[facility] ([facility]) Name Value Range Interpretation Code Description Data Mora rce(s) Supporting Document(s) glucose, fasting 108 mg/dL 70-100 Above high normal Glucose, Fas ting [facility] ([facility]) blood urea nitrogen 11 mg/dL 7-18 Blood Urea Nitro gen [facility] ([facility]) creatinine for GFR 0.72 mg/dL 0.55-1.30 Creatinine for GF R RAD[facility] ([facility]) potassium serum 4.4 mEq/L 3.5-5.1 Potassium Serum ATHE NA ([facility]) sodium level 139 mEq/L 136-145 Sodium Level RAD[facility] (No [facility], [facility]) glomerular filtration rate > 60.0 >58 Glomerula r Filtration Rate RAD[facility] ([facility]) chloride level 107 mEq/L 98-107 Chloride Level [facility] ([facility]) carbon dioxide level 25 mEq/L 21-32 Carbon Dioxide Level [facility] ([facility]) anion gap 7 mEq/L 8-16 Below low normal Anion Gap [facility] ( [facility]) ALT/SGPT 19 U/L 12-78 ALT/SGPT [facility] ([facility]) AST/SGOT 9 U/L 7-37 AST/SGOT [facility] ([facility]) calcium level 8.8 mg/dL 8.5-10.1 Calcium Level RAD[facility] ( [facility]) bilirubin,total 0.4 mg/dL 0.2-1.0 Bilirubin,total ATHE NA ([facility]) alkaline phosphatase 118 U/L 45-117 Above high normal Alkaline Phosphatase [facility] ([facility]) total protein 6.9 gm/dL 6.4-8.2 Total Protein [facility] ( [facility]) albumin 3.5 gm/dL 3.2-5.2 Albumin [facility] ([facility]) albumin/globulin ratio 1.2-2.2 Below low normal Albumin /globulin Ratio [facility] ([facility]) ID Date Data Source [id number] 05/23/2020 09:00:00 AM EST RAD[facility] ([facility]) Name Value Range Interpretation Code Description Data Mora rce(s) Supporting Document(s) red blood count 4.71 10 4.00-5.40 Red Blood Count ATHE NA ([facility]) white blood count 10.6 10 4.0-10.0 Above high normal White Blood Count [facility] ([facility]) hemoglobin 14.7 g/dL 12.0-15.5 Hemoglobin [facility] ([facility]) mean corpuscular volume 95.1 fL 80.0-96.0 Mean Corpusc ular Volume [facility] ([facility]) hematocrit 44.8 % 36.0-47.0 Hematocrit [facility] ([facility]) mean corpuscular HGB conc 32.8 g/dL 32.0-36.5 Mean Corpu scular HGB Conc [facility] ([facility]) mean corpuscular hemoglobin 31.2 pg 27.0-33.0 Mean Cor puscular Hemoglobin [facility] ([facility]) red cell distribution width 13.4 % 11.5-14.5 Red Cell Distribution Width [place] ([facility]) platelet count, automated 408 10 150-450 Platelet C ount, Automated [facility] ([facility]) neutrophils % 65.7 % 36.0-66.0 Neutrophils % RAD[facility] ( [facility]) lymph % 24.4 % 24.0-44.0 Lymph % [facility] ([facility]) mono % 7.5 % 0.0-5.0 Above high normal [place] % [facility] ([facility]) baso % 0.5 % 0.0-1.0 Baso % [facility] ([facility]) eos % 1.4 % 0.0-3.0 Eos % [place] ([facility]) immature granulocyte % 0.5 % 0-3.0 Immature Gran ulocyte % [facility] ([facility]) nucleated red blood cell % 0.0 % 0-0 Nucleated Red Blood Cell % [facility] ([facility]) lymph # 2.6 10 1.5-5.0 Lymph # [facility] ([facility]) neutrophils # 7.0 10 1.5-8.5 Neutrophils # [facility] ( [facility]) eos # 0.2 10 0.0-0.5 Eos # [facility] ([facility]) mono # 0.8 10 0.0-0.8 [place] # [facility] ([facility]) baso # 0.1 10 0.0-0.2 Baso # [facility] ([facility]) ID Date Data Source [id number] 05/23/2020 09:00:00 AM EST RAD[facility] ([facility]) Name Value Range Interpretation Code Description Data Mora rce(s) Supporting Document(s) Hemoglobin A1c/Hemoglobin.total in Blood 6.1 % Hemoglobin a1C [facility] ([facility]) estimated average glucose 128 mg/dL 60-110 Above high norm al Estimated Average Glucose [facility] ([facility]) ID Date Data Source [id number] 05/23/2020 09:00:00 AM EST [facility] ([facility]) Name Value Range Interpretation Code Description Data Mora rce(s) Supporting Document(s) triglycerides level 228 mg/dL <150 Above high normal Triglycer ides Level [facility] ([facility]) cholesterol level 155 mg/dL <200 Cholesterol Level [facility] ([facility]) non-HDL-C 118 mg/dL Non-hdl-c [facility] ([facility]) Cholesterol in LDL [Mass/volume] in Serum or Plasma 72 mg/dL <1 00 LDL Cholesterol [facility] ([facility]) HDL cholesterol 37 mg/dL >40 Below low normal HDL Cholestero l [facility] ([facility]) cholesterol risk ratio <5 Cholesterol R isk Ratio [facility] ([facility]) ID Date Data Source [id number] 05/23/2020 09:00:00 AM EST [facility] ([facility]) Name Value Range Interpretation Code Description Data Mora rce(s) Supporting Document(s) glucose, fasting 108 mg/dL 70-100 Above high normal Glucose, Fas ting [facility] ([facility]) creatinine for GFR 0.72 mg/dL 0.55-1.30 Creatinine for GF R [facility] ([facility]) blood urea nitrogen 11 mg/dL 7-18 Blood Urea Nitro gen [facility] ([facility]) potassium serum 4.4 mEq/L 3.5-5.1 Potassium Serum ATHE NA ([facility]) sodium level 139 mEq/L 136-145 Sodium Level [facility] ([facility]) chloride level 107 mEq/L 98-107 Chloride Level [facility] ([facility]) glomerular filtration rate > 60.0 >58 Glomerula r Filtration Rate [facility] ([facility]) carbon dioxide level 25 mEq/L 21-32 Carbon Dioxide Level [facility] ([facility]) anion gap 7 mEq/L 8-16 Below low normal Anion Gap [facility] ( [facility]) calcium level 8.8 mg/dL 8.5-10.1 Calcium Level [facility] ( [facility]) AST/SGOT 9 U/L 7-37 AST/SGOT [facility] ([facility]) ALT/SGPT 19 U/L 12-78 ALT/SGPT [facility] ([facility]) alkaline phosphatase 118 U/L 45-117 Above high normal Alkaline Phosphatase [facility] ([facility]) bilirubin,total 0.4 mg/dL 0.2-1.0 Bilirubin,total ATHE ([facility]) total protein 6.9 gm/dL 6.4-8.2 Total Protein [facility] ( [facility]) albumin/globulin ratio 1.2-2.2 Below low normal Albumin /globulin Ratio [facility] ([facility]) albumin 3.5 gm/dL 3.2-5.2 Albumin [facility] ([facility]) ID Date Data Source [id number] 05/23/2020 09:00:00 AM EST RAD[facility] ([facility]) Name Value Range Interpretation Code Description Data Mora rce(s) Supporting Document(s) white blood count 10.6 10 4.0-10.0 Above high normal White Blood Count [facility] ([facility]) hemoglobin 14.7 g/dL 12.0-15.5 Hemoglobin [facility] ([facility]) red blood count 4.71 10 4.00-5.40 Red Blood Count ATHE NA ([facility]) hematocrit 44.8 % 36.0-47.0 Hematocrit [facility] ([facility]) mean corpuscular hemoglobin 31.2 pg 27.0-33.0 Mean Cor puscular Hemoglobin [facility] ([facility]) mean corpuscular volume 95.1 fL 80.0-96.0 Mean Corpusc ular Volume [facility] ([facility]) mean corpuscular HGB conc 32.8 g/dL 32.0-36.5 Mean Corpu scular HGB Conc [facility] ([facility]) red cell distribution width 13.4 % 11.5-14.5 Red Cell Distribution Width [facility] ([facility]) platelet count, automated 408 10 150-450 Platelet C ount, Automated [facility] ([facility]) neutrophils % 65.7 % 36.0-66.0 Neutrophils % RAD[facility] ( [facility]) mono % 7.5 % 0.0-5.0 Above high normal [place] % [facility] ([facility]) lymph % 24.4 % 24.0-44.0 Lymph % [facility] ([facility]) baso % 0.5 % 0.0-1.0 Baso % [facility] ([facility]) eos % 1.4 % 0.0-3.0 Eos % [facility] ([facility]) immature granulocyte % 0.5 % 0-3.0 Immature Gran ulocyte % [facility] ([facility]) nucleated red blood cell % 0.0 % 0-0 Nucleated Red Blood Cell % [facility] ([facility]) neutrophils # 7.0 10 1.5-8.5 Neutrophils # RAD[facility] ( [facility]) lymph # 2.6 10 1.5-5.0 Lymph # [facility] ([facility]) eos # 0.2 10 0.0-0.5 Eos # [facility] ([facility]) mono # 0.8 10 0.0-0.8 [place] # [facility] ([facility]) baso # 0.1 10 0.0-0.2 Baso # [facility] ([facility]) ID Date Data Source [id number] 05/23/2020 09:00:00 AM EST [facility] ([facility]) Name Value Range Interpretation Code Description Data Mora rce(s) Supporting Document(s) Hemoglobin A1c/Hemoglobin.total in Blood 6.1 % Hemoglobin a1C [place] ([facility]) estimated average glucose 128 mg/dL 60-110 Above high norm al Estimated Average Glucose [place] ([facility]) ID Date Data Source [id number] 05/23/2020 09:00:00 AM EST RAD[facility] ([facility]) Name Value Range Interpretation Code Description Data Mora rce(s) Supporting Document(s) triglycerides level 228 mg/dL <150 Above high normal Triglycer ides Level [facility] ([facility]) cholesterol level 155 mg/dL <200 Cholesterol Level [place] ([facility]) Cholesterol in LDL [Mass/volume] in Serum or Plasma 72 mg/dL <1 00 LDL Cholesterol [place] ([facility]) HDL cholesterol 37 mg/dL >40 Below low normal HDL Cholestero l [place] ([facility]) non-HDL-C 118 mg/dL Non-hdl-c [facility] ([facility]) cholesterol risk ratio <5 Cholesterol R isk Ratio [place] ([facility]) ID Date Data Source [id number] 05/23/2020 09:00:00 AM EST [place] ([facility]) Name Value Range Interpretation Code Description Data Mora rce(s) Supporting Document(s) glucose, fasting 108 mg/dL 70-100 Above high normal Glucose, Fas ting [place] ([facility]) creatinine for GFR 0.72 mg/dL 0.55-1.30 Creatinine for GF R [place] ([facility]) blood urea nitrogen 11 mg/dL 7-18 Blood Urea Nitro gen [facility] ([facility]) potassium serum 4.4 mEq/L 3.5-5.1 Potassium Serum ATHE NA ([facility]) glomerular filtration rate > 60.0 >58 Glomerula r Filtration Rate [facility] ([facility]) sodium level 139 mEq/L 136-145 Sodium Level [facility] ([facility]) chloride level 107 mEq/L 98-107 Chloride Level [facility] ([facility]) anion gap 7 mEq/L 8-16 Below low normal Anion Gap [facility] ( [facility]) carbon dioxide level 25 mEq/L 21-32 Carbon Dioxide Level [facility] ([facility]) AST/SGOT 9 U/L 7-37 AST/SGOT [facility] ([facility]) calcium level 8.8 mg/dL 8.5-10.1 Calcium Level [facility] ( [facility]) ALT/SGPT 19 U/L 12-78 ALT/SGPT [facility] ([facility]) alkaline phosphatase 118 U/L 45-117 Above high normal Alkaline Phosphatase [facility] ([facility]) bilirubin,total 0.4 mg/dL 0.2-1.0 Bilirubin,total ATHE ([facility]) total protein 6.9 gm/dL 6.4-8.2 Total Protein [facility] ( [facility]) albumin 3.5 gm/dL 3.2-5.2 Albumin [facility] ([facility]) albumin/globulin ratio 1.2-2.2 Below low normal Albumin /globulin Ratio [facility] ([facility]) ID Date Data Source [id number] 05/23/2020 09:00:00 AM EST RAD[facility] ([facility]) Name Value Range Interpretation Code Description Data Mora rce(s) Supporting Document(s) white blood count 10.6 10 4.0-10.0 Above high normal White Blood Count [facility] ([facility]) red blood count 4.71 10 4.00-5.40 Red Blood Count ATHE ([facility]) hemoglobin 14.7 g/dL 12.0-15.5 Hemoglobin [facility] ([facility]) mean corpuscular volume 95.1 fL 80.0-96.0 Mean Corpusc ular Volume [facility] ([facility]) mean corpuscular hemoglobin 31.2 pg 27.0-33.0 Mean Cor puscular Hemoglobin [facility] ([facility]) hematocrit 44.8 % 36.0-47.0 Hematocrit [facility] ([facility]) red cell distribution width 13.4 % 11.5-14.5 Red Cell Distribution Width [facility] ([facility]) mean corpuscular HGB conc 32.8 g/dL 32.0-36.5 Mean Corpu scular HGB Conc [facility] ([facility]) platelet count, automated 408 10 150-450 Platelet C ount, Automated [facility] ([facility]) lymph % 24.4 % 24.0-44.0 Lymph % [place] ([facility]) neutrophils % 65.7 % 36.0-66.0 Neutrophils % [facility] ( [facility]) eos % 1.4 % 0.0-3.0 Eos % [facility] ([facility]) baso % 0.5 % 0.0-1.0 Baso % [place] ([facility]) mono % 7.5 % 0.0-5.0 Above high normal [place] % [place] ([facility]) nucleated red blood cell % 0.0 % 0-0 Nucleated Red Blood Cell % [facility] ([facility]) immature granulocyte % 0.5 % 0-3.0 Immature Gran ulocyte % [facility] ([facility]) lymph # 2.6 10 1.5-5.0 Lymph # [facility] ([facility]) neutrophils # 7.0 10 1.5-8.5 Neutrophils # [facility] ( [facility]) mono # 0.8 10 0.0-0.8 [place] # [facility] ([facility]) eos # 0.2 10 0.0-0.5 Eos # [facility] ([facility]) baso # 0.1 10 0.0-0.2 Baso # [facility] ([facility]) ID Date Data Source [id number] 05/23/2020 09:00:00 AM EST [place] ([facility]) Name Value Range Interpretation Code Description Data Mora rce(s) Supporting Document(s) Hemoglobin A1c/Hemoglobin.total in Blood 6.1 % Hemoglobin a1C [facility] ([facility]) estimated average glucose 128 mg/dL 60-110 Above high norm al Estimated Average Glucose [place] ([facility]) ID Date Data Source [id number] 05/23/2020 09:00:00 AM EST [facility] ([facility]) Name Value Range Interpretation Code Description Data Mora rce(s) Supporting Document(s) cholesterol level 155 mg/dL <200 Cholesterol Level [place] ([facility]) triglycerides level 228 mg/dL <150 Above high normal Triglycer ides Level [place] ([facility]) HDL cholesterol 37 mg/dL >40 Below low normal HDL Cholestero l [place] ([facility]) non-HDL-C 118 mg/dL Non-hdl-c [facility] ([facility]) Cholesterol in LDL [Mass/volume] in Serum or Plasma 72 mg/dL <1 00 LDL Cholesterol [place] ([facility]) cholesterol risk ratio <5 Cholesterol R isk Ratio [place] ([facility]) ID Date Data Source [id number] 05/23/2020 09:00:00 AM EST [place] ([facility]) Name Value Range Interpretation Code Description Data Mora rce(s) Supporting Document(s) glucose, fasting 108 mg/dL 70-100 Above high normal Glucose, Fas ting [facility] ([facility]) blood urea nitrogen 11 mg/dL 7-18 Blood Urea Nitro gen [facility] ([facility]) glomerular filtration rate > 60.0 >58 Glomerula r Filtration Rate [facility] ([facility]) creatinine for GFR 0.72 mg/dL 0.55-1.30 Creatinine for GF R [facility] ([facility]) sodium level 139 mEq/L 136-145 Sodium Level [facility] ([facility]) potassium serum 4.4 mEq/L 3.5-5.1 Potassium Serum AT[facility] ([facility]) chloride level 107 mEq/L 98-107 Chloride Level [facility] ([facility]) carbon dioxide level 25 mEq/L 21-32 Carbon Dioxide Level [facility] ([facility]) calcium level 8.8 mg/dL 8.5-10.1 Calcium Level [facility] ( [facility]) AST/SGOT 9 U/L 7-37 AST/SGOT [facility] ([facility]) anion gap 7 mEq/L 8-16 Below low normal Anion Gap [facility] ( [facility]) ALT/SGPT 19 U/L 12-78 ALT/SGPT [facility] ([facility]) total protein 6.9 gm/dL 6.4-8.2 Total Protein [facility] ( [facility]) bilirubin,total 0.4 mg/dL 0.2-1.0 Bilirubin,total [facility] ([facility]) alkaline phosphatase 118 U/L 45-117 Above high normal Alkaline Phosphatase [facility] ([facility]) albumin/globulin ratio 1.2-2.2 Below low normal Albumin /globulin Ratio [facility] ([facility]) albumin 3.5 gm/dL 3.2-5.2 Albumin [facility] ([facility]) ID Date Data Source [id number] 05/23/2020 09:00:00 AM EST [facility] ([facility]) Name Value Range Interpretation Code Description Data Mora rce(s) Supporting Document(s) white blood count 10.6 10 4.0-10.0 Above high normal White Blood Count [facility] ([facility]) red blood count 4.71 10 4.00-5.40 Red Blood Count [facility] ([facility]) hemoglobin 14.7 g/dL 12.0-15.5 Hemoglobin [facility] ([facility]) hematocrit 44.8 % 36.0-47.0 Hematocrit [facility] ([facility]) mean corpuscular volume 95.1 fL 80.0-96.0 Mean Corpusc ular Volume [facility] ([facility]) mean corpuscular hemoglobin 31.2 pg 27.0-33.0 Mean Cor puscular Hemoglobin [facility] ([facility]) red cell distribution width 13.4 % 11.5-14.5 Red Cell Distribution Width [facility] ([facility]) mean corpuscular HGB conc 32.8 g/dL 32.0-36.5 Mean Corpu scular HGB Conc [facility] ([facility]) neutrophils % 65.7 % 36.0-66.0 Neutrophils % [facility] ( [facility]) platelet count, automated 408 10 150-450 Platelet C ount, Automated [facility] ([facility]) lymph % 24.4 % 24.0-44.0 Lymph % [place] ([facility]) eos % 1.4 % 0.0-3.0 Eos % [place] ([facility]) mono % 7.5 % 0.0-5.0 Above high normal [place] % [place] ([facility]) nucleated red blood cell % 0.0 % 0-0 Nucleated Red Blood Cell % [facility] ([facility]) baso % 0.5 % 0.0-1.0 Baso % [place] ([facility]) immature granulocyte % 0.5 % 0-3.0 Immature Gran ulocyte % [place] ([facility]) neutrophils # 7.0 10 1.5-8.5 Neutrophils # [facility] ( [facility]) lymph # 2.6 10 1.5-5.0 Lymph # [facility] ([facility]) mono # 0.8 10 0.0-0.8 [place] # [facility] ([facility]) eos # 0.2 10 0.0-0.5 Eos # [facility] ([facility]) baso # 0.1 10 0.0-0.2 Baso # [facility] ([facility]) ID Date Data Source [id number] 05/23/2020 09:00:00 AM EST [place] ([facility]) Name Value Range Interpretation Code Description Data Mora rce(s) Supporting Document(s) Hemoglobin A1c/Hemoglobin.total in Blood 6.1 % Hemoglobin a1C [facility] ([facility]) estimated average glucose 128 mg/dL 60-110 Above high norm al Estimated Average Glucose [facility] ([facility]) ID Date Data Source [id number] 05/23/2020 09:00:00 AM EST [facility] ([facility]) Name Value Range Interpretation Code Description Data Mora rce(s) Supporting Document(s) triglycerides level 228 mg/dL <150 Above high normal Triglycer ides Level [facility] ([facility]) cholesterol level 155 mg/dL <200 Cholesterol Level [facility] ([facility]) HDL cholesterol 37 mg/dL >40 Below low normal HDL Cholestero l [facility] ([facility]) non-HDL-C 118 mg/dL Non-hdl-c [facility] ([facility]) Cholesterol in LDL [Mass/volume] in Serum or Plasma 72 mg/dL <1 00 LDL Cholesterol [facility] ([facility]) cholesterol risk ratio <5 Cholesterol R isk Ratio [place] ([facility]) ID Date Data Source [id number] 05/23/2020 09:00:00 AM EST [place] ([facility]) Name Value Range Interpretation Code Description Data Mora rce(s) Supporting Document(s) glucose, fasting 108 mg/dL 70-100 Above high normal Glucose, Fas ting [facility] ([facility]) creatinine for GFR 0.72 mg/dL 0.55-1.30 Creatinine for GF R [facility] ([facility]) blood urea nitrogen 11 mg/dL 7-18 Blood Urea Nitro gen [facility] ([facility]) glomerular filtration rate > 60.0 >58 Glomerula r Filtration Rate [facility] ([facility]) potassium serum 4.4 mEq/L 3.5-5.1 Potassium Serum ATHE NA ([facility]) sodium level 139 mEq/L 136-145 Sodium Level [facility] (No [facility]) chloride level 107 mEq/L 98-107 Chloride Level [facility] ([facility]) anion gap 7 mEq/L 8-16 Below low normal Anion Gap [facility] ( [facility]) carbon dioxide level 25 mEq/L 21-32 Carbon Dioxide Level [facility] ([facility]) AST/SGOT 9 U/L 7-37 AST/SGOT [facility] ([facility]) calcium level 8.8 mg/dL 8.5-10.1 Calcium Level [facility] ( [facility]) ALT/SGPT 19 U/L 12-78 ALT/SGPT [facility] ([facility]) bilirubin,total 0.4 mg/dL 0.2-1.0 Bilirubin,total ATHE NA ([facility]) total protein 6.9 gm/dL 6.4-8.2 Total Protein [facility] ( [facility]) alkaline phosphatase 118 U/L 45-117 Above high normal Alkaline Phosphatase [facility] ([facility]) albumin 3.5 gm/dL 3.2-5.2 Albumin [facility] ([facility]) albumin/globulin ratio 1.2-2.2 Below low normal Albumin /globulin Ratio [facility] ([facility]) ID Date Data Source [id number] 05/23/2020 09:00:00 AM EST [facility] ([facility]) Name Value Range Interpretation Code Description Data Mora rce(s) Supporting Document(s) white blood count 10.6 10 4.0-10.0 Above high normal White Blood Count [facility] ([facility]) red blood count 4.71 10 4.00-5.40 Red Blood Count ATHE NA ([facility]) hematocrit 44.8 % 36.0-47.0 Hematocrit [facility] ([facility]) hemoglobin 14.7 g/dL 12.0-15.5 Hemoglobin [facility] ([facility]) mean corpuscular volume 95.1 fL 80.0-96.0 Mean Corpusc ular Volume [facility] ([facility]) mean corpuscular hemoglobin 31.2 pg 27.0-33.0 Mean Cor puscular Hemoglobin [facility] ([facility]) mean corpuscular HGB conc 32.8 g/dL 32.0-36.5 Mean Corpu scular HGB Conc [facility] ([facility]) platelet count, automated 408 10 150-450 Platelet C ount, Automated [facility] ([facility]) red cell distribution width 13.4 % 11.5-14.5 Red Cell Distribution Width [facility] ([facility]) lymph % 24.4 % 24.0-44.0 Lymph % [facility] ([facility]) neutrophils % 65.7 % 36.0-66.0 Neutrophils % [facility] ( [facility]) baso % 0.5 % 0.0-1.0 Baso % [facility] ([facility]) mono % 7.5 % 0.0-5.0 Above high normal [place] % [facility] ([facility]) eos % 1.4 % 0.0-3.0 Eos % [place] ([facility]) immature granulocyte % 0.5 % 0-3.0 Immature Gran ulocyte % [place] ([facility]) nucleated red blood cell % 0.0 % 0-0 Nucleated Red Blood Cell % [facility] ([facility]) neutrophils # 7.0 10 1.5-8.5 Neutrophils # [facility] ( [facility]) mono # 0.8 10 0.0-0.8 [place] # [facility] ([facility]) lymph # 2.6 10 1.5-5.0 Lymph # [facility] ([facility]) eos # 0.2 10 0.0-0.5 Eos # [place] ([facility]) baso # 0.1 10 0.0-0.2 Baso # [facility] ([facility]) ID Date Data Source [id number] 05/23/2020 09:00:00 AM EST [place] ([facility]) Name Value Range Interpretation Code Description Data Mora rce(s) Supporting Document(s) Hemoglobin A1c/Hemoglobin.total in Blood 6.1 % Hemoglobin a1C [facility] ([facility]) estimated average glucose 128 mg/dL 60-110 Above high norm al Estimated Average Glucose [facility] ([facility]) ID Date Data Source [id number] 05/23/2020 09:00:00 AM EST [facility] ([facility]) Name Value Range Interpretation Code Description Data Mora rce(s) Supporting Document(s) triglycerides level 228 mg/dL <150 Above high normal Triglycer ides Level [facility] ([facility]) cholesterol level 155 mg/dL <200 Cholesterol Level [facility] ([facility]) HDL cholesterol 37 mg/dL >40 Below low normal HDL Cholestero l [facility] ([facility]) Cholesterol in LDL [Mass/volume] in Serum or Plasma 72 mg/dL <1 00 LDL Cholesterol [facility] ([facility]) non-HDL-C 118 mg/dL Non-hdl-c [facility] ([facility]) cholesterol risk ratio <5 Cholesterol R isk Ratio [facility] ([facility]) ID Date Data Source [id number] 05/23/2020 09:00:00 AM EST [facility] ([facility]) Name Value Range Interpretation Code Description Data Mora rce(s) Supporting Document(s) glucose, fasting 108 mg/dL 70-100 Above high normal Glucose, Fas ting [facility] ([facility]) blood urea nitrogen 11 mg/dL 7-18 Blood Urea Nitro gen [facility] ([facility]) sodium level 139 mEq/L 136-145 Sodium Level [facility] ([facility]) glomerular filtration rate > 60.0 >58 Glomerula r Filtration Rate [facility] ([facility]) creatinine for GFR 0.72 mg/dL 0.55-1.30 Creatinine for GF R [facility] ([facility]) carbon dioxide level 25 mEq/L 21-32 Carbon Dioxide Level [facility] ([facility]) chloride level 107 mEq/L 98-107 Chloride Level [facility] ([facility]) potassium serum 4.4 mEq/L 3.5-5.1 Potassium Serum ATHE NA ([facility]) anion gap 7 mEq/L 8-16 Below low normal Anion Gap [facility] ( [facility]) AST/SGOT 9 U/L 7-37 AST/SGOT [facility] ([facility]) calcium level 8.8 mg/dL 8.5-10.1 Calcium Level [facility] ( [facility]) bilirubin,total 0.4 mg/dL 0.2-1.0 Bilirubin,total ATHE NA ([facility]) ALT/SGPT 19 U/L 12-78 ALT/SGPT [facility] ([facility]) alkaline phosphatase 118 U/L 45-117 Above high normal Alkaline Phosphatase [facility] ([facility]) total protein 6.9 gm/dL 6.4-8.2 Total Protein [facility] ( [facility]) albumin/globulin ratio 1.2-2.2 Below low normal Albumin /globulin Ratio [facility] ([facility]) albumin 3.5 gm/dL 3.2-5.2 Albumin [facility] ([facility]) ID Date Data Source [id number] 05/23/2020 09:00:00 AM EST [facility] ([facility]) Name Value Range Interpretation Code Description Data Mora rce(s) Supporting Document(s) white blood count 10.6 10 4.0-10.0 Above high normal White Blood Count [facility] ([facility]) hemoglobin 14.7 g/dL 12.0-15.5 Hemoglobin [facility] ([facility]) red blood count 4.71 10 4.00-5.40 Red Blood Count ATHE NA ([facility]) hematocrit 44.8 % 36.0-47.0 Hematocrit [facility] ([facility]) mean corpuscular volume 95.1 fL 80.0-96.0 Mean Corpusc ular Volume [facility] ([facility]) mean corpuscular hemoglobin 31.2 pg 27.0-33.0 Mean Cor puscular Hemoglobin [facility] ([facility]) mean corpuscular HGB conc 32.8 g/dL 32.0-36.5 Mean Corpu scular HGB Conc [facility] ([facility]) red cell distribution width 13.4 % 11.5-14.5 Red Cell Distribution Width [facility] ([facility]) platelet count, automated 408 10 150-450 Platelet C ount, Automated [facility] ([facility]) lymph % 24.4 % 24.0-44.0 Lymph % [facility] ([facility]) mono % 7.5 % 0.0-5.0 Above high normal [place] % [facility] ([facility]) neutrophils % 65.7 % 36.0-66.0 Neutrophils % [facility] ( [facility]) eos % 1.4 % 0.0-3.0 Eos % [facility] ([facility]) baso % 0.5 % 0.0-1.0 Baso % [place] ([facility]) nucleated red blood cell % 0.0 % 0-0 Nucleated Red Blood Cell % [facility] ([facility]) immature granulocyte % 0.5 % 0-3.0 Immature Gran ulocyte % [place] ([facility]) neutrophils # 7.0 10 1.5-8.5 Neutrophils # [facility] ( [facility]) eos # 0.2 10 0.0-0.5 Eos # [facility] ([facility]) mono # 0.8 10 0.0-0.8 [place] # [facility] ([facility]) lymph # 2.6 10 1.5-5.0 Lymph # [facility] ([facility]) baso # 0.1 10 0.0-0.2 Baso # [facility] ([facility]) ID Date Data Source [id number] 05/23/2020 09:00:00 AM EST [facility] ([facility]) Name Value Range Interpretation Code Description Data Mora rce(s) Supporting Document(s) estimated average glucose 128 mg/dL 60-110 Above high norm al Estimated Average Glucose [place] ([facility]) Hemoglobin A1c/Hemoglobin.total in Blood 6.1 % Hemoglobin a1C [place] ([facility]) ID Date Data Source [id number] 05/23/2020 09:00:00 AM EST [place] ([facility]) Name Value Range Interpretation Code Description Data Mora rce(s) Supporting Document(s) triglycerides level 228 mg/dL <150 Above high normal Triglycer ides Level [facility] ([facility]) cholesterol level 155 mg/dL <200 Cholesterol Level [facility] ([facility]) HDL cholesterol 37 mg/dL >40 Below low normal HDL Cholestero l [facility] ([facility]) Cholesterol in LDL [Mass/volume] in Serum or Plasma 72 mg/dL <1 00 LDL Cholesterol [facility] ([facility]) non-HDL-C 118 mg/dL Non-hdl-c [facility] ([facility]) cholesterol risk ratio <5 Cholesterol R isk Ratio [facility] ([facility]) ID Date Data Source [id number] 05/23/2020 09:00:00 AM EST [facility] ([facility]) Name Value Range Interpretation Code Description Data Mora rce(s) Supporting Document(s) glucose, fasting 108 mg/dL 70-100 Above high normal Glucose, Fas ting [facility] ([facility]) glomerular filtration rate > 60.0 >58 Glomerula r Filtration Rate [facility] ([facility]) creatinine for GFR 0.72 mg/dL 0.55-1.30 Creatinine for GF R [facility] ([facility]) blood urea nitrogen 11 mg/dL 7-18 Blood Urea Nitro gen [facility] ([facility]) potassium serum 4.4 mEq/L 3.5-5.1 Potassium Serum ATHE NA ([facility]) sodium level 139 mEq/L 136-145 Sodium Level [facility] (No [facility]) anion gap 7 mEq/L 8-16 Below low normal Anion Gap [facility] ( [facility]) carbon dioxide level 25 mEq/L 21-32 Carbon Dioxide Level [facility] ([facility]) chloride level 107 mEq/L 98-107 Chloride Level [facility] ([facility]) calcium level 8.8 mg/dL 8.5-10.1 Calcium Level [facility] ( [facility]) AST/SGOT 9 U/L 7-37 AST/SGOT [facility] ([facility]) alkaline phosphatase 118 U/L 45-117 Above high normal Alkaline Phosphatase [facility] ([facility]) ALT/SGPT 19 U/L 12-78 ALT/SGPT [facility] ([facility]) bilirubin,total 0.4 mg/dL 0.2-1.0 Bilirubin,total ATHE NA ([facility]) total protein 6.9 gm/dL 6.4-8.2 Total Protein [facility] ( [facility]) albumin 3.5 gm/dL 3.2-5.2 Albumin [facility] ([facility]) albumin/globulin ratio 1.2-2.2 Below low normal Albumin /globulin Ratio [facility] ([facility]) ID Date Data Source [id number] 05/23/2020 09:00:00 AM EST [facility] ([facility]) Name Value Range Interpretation Code Description Data Mora rce(s) Supporting Document(s) white blood count 10.6 10 4.0-10.0 Above high normal White Blood Count [facility] ([facility]) red blood count 4.71 10 4.00-5.40 Red Blood Count [facility] ([facility]) hemoglobin 14.7 g/dL 12.0-15.5 Hemoglobin [facility] ([facility]) hematocrit 44.8 % 36.0-47.0 Hematocrit [facility] ([facility]) mean corpuscular hemoglobin 31.2 pg 27.0-33.0 Mean Cor puscular Hemoglobin [facility] ([facility]) mean corpuscular volume 95.1 fL 80.0-96.0 Mean Corpusc ular Volume [facility] ([facility]) red cell distribution width 13.4 % 11.5-14.5 Red Cell Distribution Width [facility] ([facility]) mean corpuscular HGB conc 32.8 g/dL 32.0-36.5 Mean Corpu scular HGB Conc [facility] ([facility]) platelet count, automated 408 10 150-450 Platelet C ount, Automated [facility] ([facility]) neutrophils % 65.7 % 36.0-66.0 Neutrophils % [facility] ( [facility]) lymph % 24.4 % 24.0-44.0 Lymph % [facility] ([facility]) mono % 7.5 % 0.0-5.0 Above high normal [place] % [facility] ([facility]) baso % 0.5 % 0.0-1.0 Baso % [facility] ([facility]) eos % 1.4 % 0.0-3.0 Eos % [facility] ([facility]) immature granulocyte % 0.5 % 0-3.0 Immature Gran ulocyte % [facility] ([facility]) nucleated red blood cell % 0.0 % 0-0 Nucleated Red Blood Cell % [facility] ([facility]) lymph # 2.6 10 1.5-5.0 Lymph # [facility] ([facility]) neutrophils # 7.0 10 1.5-8.5 Neutrophils # [facility] ( [facility]) eos # 0.2 10 0.0-0.5 Eos # [facility] ([facility]) baso # 0.1 10 0.0-0.2 Baso # [facility] ([facility]) mono # 0.8 10 0.0-0.8 [place] # [facility] ([facility]) ID Date Data Source [id number] 05/23/2020 09:00:00 AM EST [facility] ([facility]) Name Value Range Interpretation Code Description Data Mora rce(s) Supporting Document(s) Hemoglobin A1c/Hemoglobin.total in Blood 6.1 % Hemoglobin a1C [facility] ([facility]) estimated average glucose 128 mg/dL 60-110 Above high norm al Estimated Average Glucose [facility] ([facility]) ID Date Data Source [id number] 05/23/2020 09:00:00 AM EST [place] ([facility]) Name Value Range Interpretation Code Description Data Mora rce(s) Supporting Document(s) triglycerides level 228 mg/dL <150 Above high normal Triglycer ides Level [facility] ([facility]) cholesterol level 155 mg/dL <200 Cholesterol Level [facility] ([facility]) Cholesterol in LDL [Mass/volume] in Serum or Plasma 72 mg/dL <1 00 LDL Cholesterol [facility] ([facility]) HDL cholesterol 37 mg/dL >40 Below low normal HDL Cholestero l [facility] ([facility]) cholesterol risk ratio <5 Cholesterol R isk Ratio [facility] ([facility]) non-HDL-C 118 mg/dL Non-hdl-c [facility] ([facility]) ID Date Data Source [id number] 05/23/2020 09:00:00 AM EST [facility] ([facility]) Name Value Range Interpretation Code Description Data Mora rce(s) Supporting Document(s) blood urea nitrogen 11 mg/dL 7-18 Blood Urea Nitro gen [facility] ([facility]) glucose, fasting 108 mg/dL 70-100 Above high normal Glucose, Fas ting [facility] ([facility]) creatinine for GFR 0.72 mg/dL 0.55-1.30 Creatinine for GF R [facility] ([facility]) glomerular filtration rate > 60.0 >58 Glomerula r Filtration Rate [facility] ([facility]) sodium level 139 mEq/L 136-145 Sodium Level [facility] (No [facility]) potassium serum 4.4 mEq/L 3.5-5.1 Potassium Serum [facility] ([facility]) carbon dioxide level 25 mEq/L 21-32 Carbon Dioxide Level [facility] ([facility]) anion gap 7 mEq/L 8-16 Below low normal Anion Gap [facility] ( [facility]) chloride level 107 mEq/L 98-107 Chloride Level [facility] ([facility]) ALT/SGPT 19 U/L 12-78 ALT/SGPT [facility] ([facility]) calcium level 8.8 mg/dL 8.5-10.1 Calcium Level [facility] ( [facility]) AST/SGOT 9 U/L 7-37 AST/SGOT [facility] ([facility]) alkaline phosphatase 118 U/L 45-117 Above high normal Alkaline Phosphatase [facility] ([facility]) bilirubin,total 0.4 mg/dL 0.2-1.0 Bilirubin,total AT[facility] ([facility]) total protein 6.9 gm/dL 6.4-8.2 Total Protein [facility] ( [facility]) albumin/globulin ratio 1.2-2.2 Below low normal Albumin /globulin Ratio [facility] ([facility]) albumin 3.5 gm/dL 3.2-5.2 Albumin [facility] ([facility]) ID Date Data Source [id number] 05/23/2020 09:00:00 AM EST [facility] ([facility]) Name Value Range Interpretation Code Description Data Mora rce(s) Supporting Document(s) red blood count 4.71 10 4.00-5.40 Red Blood Count [facility] ([facility]) white blood count 10.6 10 4.0-10.0 Above high normal White Blood Count [facility] ([facility]) hemoglobin 14.7 g/dL 12.0-15.5 Hemoglobin [facility] ([facility]) hematocrit 44.8 % 36.0-47.0 Hematocrit [facility] ([facility]) mean corpuscular hemoglobin 31.2 pg 27.0-33.0 Mean Cor puscular Hemoglobin [facility] ([facility]) mean corpuscular volume 95.1 fL 80.0-96.0 Mean Corpusc ular Volume [facility] ([facility]) mean corpuscular HGB conc 32.8 g/dL 32.0-36.5 Mean Corpu scular HGB Conc [facility] ([facility]) red cell distribution width 13.4 % 11.5-14.5 Red Cell Distribution Width [facility] ([facility]) platelet count, automated 408 10 150-450 Platelet C ount, Automated [facility] ([facility]) neutrophils % 65.7 % 36.0-66.0 Neutrophils % [facility] ( [facility]) lymph % 24.4 % 24.0-44.0 Lymph % [facility] ([facility]) mono % 7.5 % 0.0-5.0 Above high normal [place] % [facility] ([facility]) baso % 0.5 % 0.0-1.0 Baso % [facility] ([facility]) eos % 1.4 % 0.0-3.0 Eos % [place] ([facility]) neutrophils # 7.0 10 1.5-8.5 Neutrophils # [place] ( [facility]) immature granulocyte % 0.5 % 0-3.0 Immature Gran ulocyte % [place] ([facility]) nucleated red blood cell % 0.0 % 0-0 Nucleated Red Blood Cell % [place] ([facility]) lymph # 2.6 10 1.5-5.0 Lymph # [facility] ([facility]) eos # 0.2 10 0.0-0.5 Eos # [facility] ([facility]) mono # 0.8 10 0.0-0.8 [place] # [facility] ([facility]) baso # 0.1 10 0.0-0.2 Baso # [facility] ([facility]) ID Date Data Source [id number] 05/03/2020 09:48:00 AM EST [facility] Name Value Range Interpretation Code Description Data Mora rce(s) Supporting Document(s) SARS coronavirus 2 RdRp gene [Presence] in Respiratory specimen by ISSA with probe detection [facility] This lab was ordered by [facility] and reported by [facility]. ID Date Data Source [id number] 05/03/2020 09:43:00 AM EST [place] ([facility]) Name Value Range Interpretation Code Description Data Mora rce(s) Supporting Document(s) sars-cov-2 negative negative Sars-cov-2 [place] ([facility]) ID Date Data Source [id number] 05/03/2020 09:43:00 AM EST [place] ([facility]) Name Value Range Interpretation Code Description Data Mora rce(s) Supporting Document(s) sars-cov-2 negative negative Sars-cov-2 [facility]) ID Date Data Source [id number] 05/03/2020 09:43:00 AM EST [place] ([facility]) Name Value Range Interpretation Code Description Data Mora rce(s) Supporting Document(s) sars-cov-2 negative negative Sars-cov-2 [facility] ([facility]) ID Date Data Source [id number] 05/03/2020 09:43:00 AM EST [place] ([facility]) Name Value Range Interpretation Code Description Data Mora rce(s) Supporting Document(s) sars-cov-2 negative negative Sars-cov-2 [facility] ([facility]) ID Date Data Source [id number] 05/03/2020 09:43:00 AM EST [facility]) Name Value Range Interpretation Code Description Data Mora rce(s) Supporting Document(s) sars-cov-2 negative negative Sars-cov-2 [place] ([facility]) ID Date Data Source [id number] 05/03/2020 09:43:00 AM EST [facility]) Name Value Range Interpretation Code Description Data Mora rce(s) Supporting Document(s) sars-cov-2 negative negative Sars-cov-2 [facility] ([facility]) ID Date Data Source [id number] 05/03/2020 09:43:00 AM EST [facility]) Name Value Range Interpretation Code Description Data Mora rce(s) Supporting Document(s) sars-cov-2 negative negative Sars-cov-2 [facility] ([facility]) ID Date Data Source [id number] 05/03/2020 09:43:00 AM [facility] Name Value Range Interpretation Code Description Data Mora rce(s) Supporting Document(s) sars-cov-2 negative negative Sars-cov-2 [facility]) ID Date Data Source [id number] 05/03/2020 09:43:00 AM EST [facility] ([facility]) Name Value Range Interpretation Code Description Data Mora rce(s) Supporting Document(s) sars-cov-2 negative negative Sars-cov-2 [place] ([facility]) ID Date Data Source [id number] 05/03/2020 09:43:00 AM EST [facility] ([facility]) Name Value Range Interpretation Code Description Data Mora rce(s) Supporting Document(s) sars-cov-2 negative negative Sars-cov-2 [place] ([facility]) ID Date Data Source [id number] 05/03/2020 09:43:00 AM EST [facility] ([facility]) Name Value Range Interpretation Code Description Data Mora rce(s) Supporting Document(s) sars-cov-2 negative negative Sars-cov-2 [place] ([facility]) ID Date Data Source [id number] 03/21/2020 10:30:00 AM EST [facility] ([facility]) Name Value Range Interpretation Code Description Data Mora rce(s) Supporting Document(s) Coronavirus 2019 Nasopharygeal Laboratory test result [facility] ([facility]) This nucleic acid amplification test was developed and its performance characteristics determined by [employer]. Nucleic acid amplification tests include PCR and [...] detected) result in this assay. Performed at: [facility] [address] [place] [address], [place] [address] [id number] Film Rental Clerk: Snow Melendrez PhD, Phone: [phone] Not Detected ID Date Data Source [id number] 03/21/2020 10:30:00 AM EST [facility] Name Value Range Interpretation Code Description Data Mora rce(s) Supporting Document(s) SARS coronavirus 2 RNA [facility] This lab was ordered by [facility] and reported by [facility]. ID Date Data Source [id number] 02/23/2020 10:48:00 AM EDT [facility] ([facility]) Name Value Range Interpretation Code Description Data Mora rce(s) Supporting Document(s) Prothrombin time (PT) 28.8 s 24.2-38.5 [facility] ([facility]) ID Date Data Source [id number] 02/23/2020 10:48:00 AM EDT [facility] ([facility]) Name Value Range Interpretation Code Description Data Mora rce(s) Supporting Document(s) Inr 0.89 [facility] ([facility]) THERAPUTIC HUMAN INR VALUES INDICATIONS NORMAL RANGES PROPHYLAXIS/TREATMENT OF: VENOUS THROMBOSIS 2.0-3.0 PULMONARY EMBOLISM 2.0-3.0 PREVENTION OF SYSTEMIC EMBOLISM FROM: TISSUE HEART VALVES 2.0-3.0 ACUTE MYOCARDIAL INFARCTION 2.0-3.0 VALVULAR HEART DISEASE 2.0-3.0 ATRIAL FIBRILLATION 2.0-3.0 MECHANICAL VALVES(HIGH RISK) 2.5-3.5 RECURRENT MYOCARDIAL INFARCTION 2.5-3.5 Prothrombin Time 12.2 s 12.5-14.3 [facility] ([facility]) ID Date Data Source [id number] 02/23/2020 09:16:00 AM EDT [facility] ([facility]) Name Value Range Interpretation Code Description Data Mora rce(s) Supporting Document(s) Platelets [#/volume] in Blood by Automated count 336 10 150-450 [facility] ([facility]) Prothrombin time (PT) Laboratory test result [facility] ([facility]) ID Date Data Source [id number] 02/23/2020 08:53:00 AM EDT [facility] ([facility] Name Value Range Interpretation Code Description Data Mora rce(s) Supporting Document(s) Triglycerides 197 [facility] ([facility]) Cholesterol in LDL [Mass/volume] in Serum or Plasma by calculation 77 [facility] ([facility]) Chol/HDL Ratio 4.411 [facility] ([facility]) Cholesterol 150 [facility] ([facility]) HDL 34 [facility] ID Date Data Source [id number] 02/23/2020 08:53:00 AM EDT [facility] ([facility]) Name Value Range Interpretation Code Description Data Mora rce(s) Supporting Document(s) Hemoglobin 14.9 12.0-15.5 [facility] ([facility]) Platelets 390 150-450 [facility] White Blood Count 10.6 4.0-10.0 [facility] ([facility]) Red Blood Count 4.79 4.00-5.40 [facility] ([facility]) Hematocrit 46.0 36.0-47.0 [facility] ([facility]) ID Date Data Source [id number] 02/23/2020 08:53:00 AM EDT [facility] Name Value Range Interpretation Code Description Data Mora rce(s) Supporting Document(s) Hemoglobin A1c/Hemoglobin.total in Blood 6.0 [facility] ([facility]) ID Date Data Source [id number] 02/23/2020 08:53:00 AM EDT [facility] ([facility]) Name Value Range Interpretation Code Description Data Mora rce(s) Supporting Document(s) Albumin [Mass/volume] in Serum or Plasma 3.5 [facility] ([facility]) Alanine aminotransferase [Enzymatic activity/volume] in Serum or Pl asma 20 [facility] ([facility]) Calcium [Mass/volume] in Serum or Plasma 9.0 [facility] ([facility]) Carbon dioxide, total [Moles/volume] in Serum or Plasma 24 [facility] ([facility]) Chloride [Moles/volume] in Serum or Plasma 108 [facility] ([facility]) Potassium [Moles/volume] in Serum or Plasma 4.5 [facility] ([facility]) Alkaline phosphatase [Enzymatic activity/volume] in Serum or Plasma 1 28 [facility] ([facility]) Urea nitrogen [Mass/volume] in Serum or Plasma 11 [facility] ([facility]) Sodium 140 [facility] ([facility]) Protein [Mass/volume] in Serum or Plasma 7.0 [facility] ([facility]) Aspartate aminotransferase [Enzymatic activity/volume] in Serum or Plasma 9 [facility] ([facility]) Glucose 96 70-100 [facility] ([facility]) Creatinine For GFR 0.74 [facility] ([facility]) ID Date Data Source [id number] 02/23/2020 08:15:00 AM EDT [facility]) Name Value Range Interpretation Code Description Data Mora rce(s) Supporting Document(s) estimated average glucose 126 mg/dL 60-110 Above high norm al Estimated Average Glucose [facility]) Hemoglobin A1c/Hemoglobin.total in Blood 6.0 % Hemoglobin a1C [facility]) ID Date Data Source [id number] 02/23/2020 08:15:00 AM EDT [facility]) Name Value Range Interpretation Code Description Data Mora rce(s) Supporting Document(s) total 25(oh) vitamin D 27.8 NG/mL 30.0-100.0 Below low normal T otal 25(Oh) Vitamin D [facility]) ID Date Data Source [id number] 02/23/2020 08:15:00 AM EDT [facility]) Name Value Range Interpretation Code Description Data Mora rce(s) Supporting Document(s) HDL cholesterol 34 mg/dL >40 Below low normal HDL Cholestero l [facility] ([facility]) cholesterol level 150 mg/dL <200 Cholesterol Level [facility] ([facility]) triglycerides level 197 mg/dL <150 Above high normal Triglycer ides Level [place] ([facility]) non-HDL-C 116 mg/dL Non-hdl-c [facility] ([facility]) cholesterol risk ratio <5 Cholesterol R isk Ratio [facility] ([facility]) Cholesterol in LDL [Mass/volume] in Serum or Plasma 77 mg/dL <1 00 LDL Cholesterol [facility] ([facility]) ID Date Data Source [id number] 02/23/2020 08:15:00 AM EDT [facility] ([facility]) Name Value Range Interpretation Code Description Data Mora rce(s) Supporting Document(s) glucose, fasting 96 mg/dL 70-100 Glucose, Fasting AT [facility] ([facility]) blood urea nitrogen 11 mg/dL 7-18 Blood Urea Nitro gen [facility] ([facility]) glomerular filtration rate > 60.0 >58 Glomerula r Filtration Rate [facility] ([facility]) creatinine for GFR 0.74 mg/dL 0.55-1.30 Creatinine for GF R [facility] ([facility]) chloride level 108 mEq/L 98-107 Above high normal Chloride Level [facility] ([facility]) sodium level 140 mEq/L 136-145 Sodium Level [facility] ([facility]) carbon dioxide level 24 mEq/L 21-32 Carbon Dioxide Level [facility] ([facility]) potassium serum 4.5 mEq/L 3.5-5.1 Potassium Serum [facility] ([facility]) AST/SGOT 9 U/L 7-37 AST/SGOT [facility] ([facility]) ALT/SGPT 20 U/L 12-78 ALT/SGPT [facility] ([facility]) anion gap 8 mEq/L 8-16 Anion Gap [facility] ([facility]) calcium level 9.0 mg/dL 8.5-10.1 Calcium Level [facility] ( [facility]) alkaline phosphatase 128 U/L 45-117 Above high normal Alkaline Phosphatase [facility] ([facility]) bilirubin,total 0.4 mg/dL 0.2-1.0 Bilirubin,total ATHE NA ([facility]) total protein 7.0 gm/dL 6.4-8.2 Total Protein [facility] ( [facility]) albumin 3.5 gm/dL 3.2-5.2 Albumin [facility] ([facility]) albumin/globulin ratio 1.2-2.2 Below low normal Albumin /globulin Ratio [facility] ([facility]) ID Date Data Source [id number] 02/23/2020 08:15:00 AM EDT [facility] ([facility]) Name Value Range Interpretation Code Description Data Mora rce(s) Supporting Document(s) white blood count 10.6 10 4.0-10.0 Above high normal White Blood Count [facility] ([facility]) red blood count 4.79 10 4.00-5.40 Red Blood Count [facility] ([facility]) hemoglobin 14.9 g/dL 12.0-15.5 Hemoglobin [facility] ([facility]) hematocrit 46.0 % 36.0-47.0 Hematocrit [facility] ([facility]) mean corpuscular volume 96.0 fL 80.0-96.0 Mean Corpusc ular Volume [facility] ([facility]) red cell distribution width 13.7 % 11.5-14.5 Red Cell Distribution Width [facility] ([facility]) mean corpuscular hemoglobin 31.1 pg 27.0-33.0 Mean Cor puscular Hemoglobin [facility] ([facility]) mean corpuscular HGB conc 32.4 g/dL 32.0-36.5 Mean Corpu scular HGB Conc [facility] ([facility]) neutrophils % 62.1 % 36.0-66.0 Neutrophils % [facility] ( [facility]) lymph % 27.1 % 24.0-44.0 Lymph % [facility] ([facility]) platelet count, automated 390 10 150-450 Platelet C ount, Automated [facility] ([facility]) immature granulocyte % 0.6 % 0-3.0 Immature Gran ulocyte % [facility] ([facility]) eos % 2.1 % 0.0-3.0 Eos % [facility] ([facility]) mono % 7.5 % 0.0-5.0 Above high normal [place] % [facility] ([facility]) baso % 0.6 % 0.0-1.0 Baso % [facility] ([facility]) nucleated red blood cell % 0.0 % 0-0 Nucleated Red Blood Cell % [facility] ([facility]) lymph # 2.9 10 1.5-5.0 Lymph # [facility] ([facility]) neutrophils # 6.6 10 1.5-8.5 Neutrophils # [facility] ( [facility]) eos # 0.2 10 0.0-0.5 Eos # [facility] ([facility]) baso # 0.1 10 0.0-0.2 Baso # [facility] ([facility]) mono # 0.8 10 0.0-0.8 [place] # [facility] ([facility]) ID Date Data Source [id number] 02/23/2020 08:15:00 AM EDT [place] ([facility]) Name Value Range Interpretation Code Description Data Mora rce(s) Supporting Document(s) Hemoglobin A1c/Hemoglobin.total in Blood 6.0 % Hemoglobin a1C [facility] ([facility]) estimated average glucose 126 mg/dL 60-110 Above high norm al Estimated Average Glucose [place] ([facility]) ID Date Data Source [id number] 02/23/2020 08:15:00 AM EDT [facility] ([facility]) Name Value Range Interpretation Code Description Data Mora rce(s) Supporting Document(s) total 25(oh) vitamin D 27.8 NG/mL 30.0-100.0 Below low normal T otal 25(Oh) Vitamin D [facility] ([facility]) ID Date Data Source [id number] 02/23/2020 08:15:00 AM EDT [facility]) Name Value Range Interpretation Code Description Data Mora rce(s) Supporting Document(s) triglycerides level 197 mg/dL <150 Above high normal Triglycer ides Level [facility] ([facility]) Cholesterol in LDL [Mass/volume] in Serum or Plasma 77 mg/dL <1 00 LDL Cholesterol [facility] ([facility]) HDL cholesterol 34 mg/dL >40 Below low normal HDL Cholestero l [facility] ([facility]) cholesterol level 150 mg/dL <200 Cholesterol Level [facility] ([facility]) cholesterol risk ratio <5 Cholesterol R isk Ratio [facility] ([facility]) non-HDL-C 116 mg/dL Non-hdl-c [facility] ([facility]) ID Date Data Source [id number] 02/23/2020 08:15:00 AM EDT [facility] ([facility]) Name Value Range Interpretation Code Description Data Mora rce(s) Supporting Document(s) creatinine for GFR 0.74 mg/dL 0.55-1.30 Creatinine for GF R [facility] ([facility]) glomerular filtration rate > 60.0 >58 Glomerula r Filtration Rate [facility] ([facility]) blood urea nitrogen 11 mg/dL 7-18 Blood Urea Nitro gen [facility] ([facility]) glucose, fasting 96 mg/dL 70-100 Glucose, Fasting AT [facility]) potassium serum 4.5 mEq/L 3.5-5.1 Potassium Serum ATHE NA ([facility]) chloride level 108 mEq/L 98-107 Above high normal Chloride Level [facility] ([facility]) sodium level 140 mEq/L 136-145 Sodium Level [facility] ([facility]) anion gap 8 mEq/L 8-16 Anion Gap [facility] ([facility]) ALT/SGPT 20 U/L 12-78 ALT/SGPT [facility] ([facility]) AST/SGOT 9 U/L 7-37 AST/SGOT [facility] ([facility]) calcium level 9.0 mg/dL 8.5-10.1 Calcium Level [facility] ( [facility]) carbon dioxide level 24 mEq/L 21-32 Carbon Dioxide Level [facility] ([facility]) alkaline phosphatase 128 U/L 45-117 Above high normal Alkaline Phosphatase [facility] ([facility]) bilirubin,total 0.4 mg/dL 0.2-1.0 Bilirubin,total ATHE NA ([facility]) total protein 7.0 gm/dL 6.4-8.2 Total Protein [facility] ( [facility]) albumin 3.5 gm/dL 3.2-5.2 Albumin [facility] ([facility]) albumin/globulin ratio 1.2-2.2 Below low normal Albumin /globulin Ratio [facility] ([facility]) ID Date Data Source [id number] 02/23/2020 08:15:00 AM EDT [facility] ([facility]) Name Value Range Interpretation Code Description Data Mora rce(s) Supporting Document(s) white blood count 10.6 10 4.0-10.0 Above high normal White Blood Count [facility] ([facility]) hematocrit 46.0 % 36.0-47.0 Hematocrit [facility] ([facility]) hemoglobin 14.9 g/dL 12.0-15.5 Hemoglobin [facility] ([facility]) red blood count 4.79 10 4.00-5.40 Red Blood Count [facility] ([facility]) mean corpuscular hemoglobin 31.1 pg 27.0-33.0 Mean Cor puscular Hemoglobin [facility] ([facility]) mean corpuscular volume 96.0 fL 80.0-96.0 Mean Corpusc ular Volume [facility] ([facility]) platelet count, automated 390 10 150-450 Platelet C ount, Automated [facility] ([facility]) red cell distribution width 13.7 % 11.5-14.5 Red Cell Distribution Width [facility] ([facility]) mean corpuscular HGB conc 32.4 g/dL 32.0-36.5 Mean Corpu scular HGB Conc [facility] ([facility]) mono % 7.5 % 0.0-5.0 Above high normal [place] % [facility] ([facility]) neutrophils % 62.1 % 36.0-66.0 Neutrophils % [facility] ( [facility]) lymph % 27.1 % 24.0-44.0 Lymph % [facility] ([facility]) immature granulocyte % 0.6 % 0-3.0 Immature Gran ulocyte % [facility] ([facility]) nucleated red blood cell % 0.0 % 0-0 Nucleated Red Blood Cell % [facility] ([facility]) baso % 0.6 % 0.0-1.0 Baso % [facility] ([facility]) eos % 2.1 % 0.0-3.0 Eos % [facility] ([facility]) neutrophils # 6.6 10 1.5-8.5 Neutrophils # [facility] ( [facility]) mono # 0.8 10 0.0-0.8 [place] # [facility] ([facility]) lymph # 2.9 10 1.5-5.0 Lymph # [facility] ([facility]) eos # 0.2 10 0.0-0.5 Eos # [facility] ([facility]) baso # 0.1 10 0.0-0.2 Baso # [facility] ([facility]) ID Date Data Source [id number] 02/23/2020 08:15:00 AM EDT [facility] ([facility]) Name Value Range Interpretation Code Description Data Mora rce(s) Supporting Document(s) Hemoglobin A1c/Hemoglobin.total in Blood 6.0 % Hemoglobin a1C [place] ([facility]) estimated average glucose 126 mg/dL 60-110 Above high norm al Estimated Average Glucose [place] ([facility]) ID Date Data Source [id number] 02/23/2020 08:15:00 AM EDT [place] ([facility]) Name Value Range Interpretation Code Description Data Mora rce(s) Supporting Document(s) total 25(oh) vitamin D 27.8 NG/mL 30.0-100.0 Below low normal T otal 25(Oh) Vitamin D [place] ([facility]) ID Date Data Source [id number] 02/23/2020 08:15:00 AM EDT [facility] ([facility]) Name Value Range Interpretation Code Description Data Mora rce(s) Supporting Document(s) triglycerides level 197 mg/dL <150 Above high normal Triglycer ides Level [facility] ([facility]) HDL cholesterol 34 mg/dL >40 Below low normal HDL Cholestero l [facility] ([facility]) cholesterol level 150 mg/dL <200 Cholesterol Level [facility] ([facility]) cholesterol risk ratio <5 Cholesterol R isk Ratio [facility] ([facility]) Cholesterol in LDL [Mass/volume] in Serum or Plasma 77 mg/dL <1 00 LDL Cholesterol [facility] ([facility]) non-HDL-C 116 mg/dL Non-hdl-c [facility] ([facility]) ID Date Data Source [id number] 02/23/2020 08:15:00 AM EDT [facility]) Name Value Range Interpretation Code Description Data Mora rce(s) Supporting Document(s) glucose, fasting 96 mg/dL 70-100 Glucose, Fasting AT [facility]) blood urea nitrogen 11 mg/dL 7-18 Blood Urea Nitro gen [facility] ([facility]) creatinine for GFR 0.74 mg/dL 0.55-1.30 Creatinine for GF R [facility] ([facility]) potassium serum 4.5 mEq/L 3.5-5.1 Potassium Serum [facility] NA ([facility]) sodium level 140 mEq/L 136-145 Sodium Level [facility] ([facility]) glomerular filtration rate > 60.0 >58 Glomerula r Filtration Rate [facility] ([facility]) anion gap 8 mEq/L 8-16 Anion Gap [facility] ([facility]) chloride level 108 mEq/L 98-107 Above high normal Chloride Level [facility] ([facility]) calcium level 9.0 mg/dL 8.5-10.1 Calcium Level [facility] ( [facility]) carbon dioxide level 24 mEq/L 21-32 Carbon Dioxide Level [facility] ([facility]) AST/SGOT 9 U/L 7-37 AST/SGOT [facility] ([facility]) ALT/SGPT 20 U/L 12-78 ALT/SGPT [facility] ([facility]) bilirubin,total 0.4 mg/dL 0.2-1.0 Bilirubin,total ATHE NA ([facility]) alkaline phosphatase 128 U/L 45-117 Above high normal Alkaline Phosphatase [facility] ([facility]) albumin 3.5 gm/dL 3.2-5.2 Albumin [facility] ([facility]) albumin/globulin ratio 1.2-2.2 Below low normal Albumin /globulin Ratio [facility] ([facility]) total protein 7.0 gm/dL 6.4-8.2 Total Protein [facility] ( [facility]) ID Date Data Source [id number] 02/23/2020 08:15:00 AM EDT [place] ([facility]) Name Value Range Interpretation Code Description Data Mora rce(s) Supporting Document(s) white blood count 10.6 10 4.0-10.0 Above high normal White Blood Count [facility] ([facility]) hemoglobin 14.9 g/dL 12.0-15.5 Hemoglobin [facility] ([facility]) red blood count 4.79 10 4.00-5.40 Red Blood Count [facility] ([facility]) mean corpuscular volume 96.0 fL 80.0-96.0 Mean Corpusc ular Volume [facility] ([facility]) mean corpuscular HGB conc 32.4 g/dL 32.0-36.5 Mean Corpu scular HGB Conc [facility] ([facility]) mean corpuscular hemoglobin 31.1 pg 27.0-33.0 Mean Cor puscular Hemoglobin [facility] ([facility]) hematocrit 46.0 % 36.0-47.0 Hematocrit [facility] ([facility]) neutrophils % 62.1 % 36.0-66.0 Neutrophils % [facility] ( [facility]) red cell distribution width 13.7 % 11.5-14.5 Red Cell Distribution Width [facility] ([facility]) platelet count, automated 390 10 150-450 Platelet C ount, Automated [facility] ([facility]) lymph % 27.1 % 24.0-44.0 Lymph % [facility] ([facility]) mono % 7.5 % 0.0-5.0 Above high normal [place] % [facility] ([facility]) eos % 2.1 % 0.0-3.0 Eos % [facility] ([facility]) immature granulocyte % 0.6 % 0-3.0 Immature Gran ulocyte % [facility] ([facility]) baso % 0.6 % 0.0-1.0 Baso % [facility] ([facility]) nucleated red blood cell % 0.0 % 0-0 Nucleated Red Blood Cell % [facility] ([facility]) neutrophils # 6.6 10 1.5-8.5 Neutrophils # [facility] ( [facility]) mono # 0.8 10 0.0-0.8 [place] # [facility] ([facility]) lymph # 2.9 10 1.5-5.0 Lymph # [facility] ([facility]) eos # 0.2 10 0.0-0.5 Eos # [facility] ([facility]) baso # 0.1 10 0.0-0.2 Baso # [facility] ([facility]) ID Date Data Source [id number] 02/23/2020 08:15:00 AM EDT [place] ([facility]) Name Value Range Interpretation Code Description Data Mora rce(s) Supporting Document(s) Hemoglobin A1c/Hemoglobin.total in Blood 6.0 % Hemoglobin a1C [facility] ([facility]) estimated average glucose 126 mg/dL 60-110 Above high norm al Estimated Average Glucose [place] ([facility]) ID Date Data Source [id number] 02/23/2020 08:15:00 AM EDT [place] ([facility]) Name Value Range Interpretation Code Description Data Mora rce(s) Supporting Document(s) total 25(oh) vitamin D 27.8 NG/mL 30.0-100.0 Below low normal T otal 25(Oh) Vitamin D [facility] ([facility]) ID Date Data Source [id number] 02/23/2020 08:15:00 AM EDT [place] ([facility]) Name Value Range Interpretation Code Description Data Mora rce(s) Supporting Document(s) HDL cholesterol 34 mg/dL >40 Below low normal HDL Cholestero l [facility] ([facility]) cholesterol level 150 mg/dL <200 Cholesterol Level [facility] ([facility]) triglycerides level 197 mg/dL <150 Above high normal Triglycer ides Level [facility] ([facility]) Cholesterol in LDL [Mass/volume] in Serum or Plasma 77 mg/dL <1 00 LDL Cholesterol [facility] ([facility]) non-HDL-C 116 mg/dL Non-hdl-c [facility] ([facility]) cholesterol risk ratio <5 Cholesterol R isk Ratio [facility] ([facility]) ID Date Data Source [id number] 02/23/2020 08:15:00 AM EDT [facility] ([facility]) Name Value Range Interpretation Code Description Data Mora rce(s) Supporting Document(s) blood urea nitrogen 11 mg/dL 7-18 Blood Urea Nitro gen [facility] ([facility]) creatinine for GFR 0.74 mg/dL 0.55-1.30 Creatinine for GF R [facility] ([facility]) glucose, fasting 96 mg/dL 70-100 Glucose, Fasting AT [facility] ([facility]) sodium level 140 mEq/L 136-145 Sodium Level [facility] ([facility]) chloride level 108 mEq/L 98-107 Above high normal Chloride Level [facility] ([facility]) glomerular filtration rate > 60.0 >58 Glomerula r Filtration Rate [facility] ([facility]) potassium serum 4.5 mEq/L 3.5-5.1 Potassium Serum AT[facility] NA ([facility]) AST/SGOT 9 U/L 7-37 AST/SGOT [facility] ([facility]) calcium level 9.0 mg/dL 8.5-10.1 Calcium Level [facility] ( [facility]) anion gap 8 mEq/L 8-16 Anion Gap [facility] ([facility]) carbon dioxide level 24 mEq/L 21-32 Carbon Dioxide Level [facility] ([facility]) ALT/SGPT 20 U/L 12-78 ALT/SGPT [facility] ([facility]) albumin 3.5 gm/dL 3.2-5.2 Albumin [facility] ([facility]) alkaline phosphatase 128 U/L 45-117 Above high normal Alkaline Phosphatase [facility] ([facility]) bilirubin,total 0.4 mg/dL 0.2-1.0 Bilirubin,total ATHE NA ([facility]) total protein 7.0 gm/dL 6.4-8.2 Total Protein [facility] ( [facility]) albumin/globulin ratio 1.2-2.2 Below low normal Albumin /globulin Ratio [facility] ([facility]) ID Date Data Source [id number] 02/23/2020 08:15:00 AM EDT [facility] ([facility]) Name Value Range Interpretation Code Description Data Mora rce(s) Supporting Document(s) white blood count 10.6 10 4.0-10.0 Above high normal White Blood Count [facility] ([facility]) red blood count 4.79 10 4.00-5.40 Red Blood Count [facility] ([facility]) hemoglobin 14.9 g/dL 12.0-15.5 Hemoglobin [facility] ([facility]) hematocrit 46.0 % 36.0-47.0 Hematocrit [facility] ([facility]) mean corpuscular volume 96.0 fL 80.0-96.0 Mean Corpusc ular Volume [facility] ([facility]) mean corpuscular HGB conc 32.4 g/dL 32.0-36.5 Mean Corpu scular HGB Conc [facility] ([facility]) mean corpuscular hemoglobin 31.1 pg 27.0-33.0 Mean Cor puscular Hemoglobin [facility] ([facility]) lymph % 27.1 % 24.0-44.0 Lymph % [facility] ([facility]) platelet count, automated 390 10 150-450 Platelet C ount, Automated [facility] ([facility]) red cell distribution width 13.7 % 11.5-14.5 Red Cell Distribution Width [facility] ([facility]) neutrophils % 62.1 % 36.0-66.0 Neutrophils % [facility] ( [facility]) immature granulocyte % 0.6 % 0-3.0 Immature Gran ulocyte % [facility] ([facility]) mono % 7.5 % 0.0-5.0 Above high normal [place] % [facility] ([facility]) baso % 0.6 % 0.0-1.0 Baso % [facility] ([facility]) eos % 2.1 % 0.0-3.0 Eos % [facility] ([facility]) lymph # 2.9 10 1.5-5.0 Lymph # [facility] ([facility]) nucleated red blood cell % 0.0 % 0-0 Nucleated Red Blood Cell % [facility] ([facility]) mono # 0.8 10 0.0-0.8 [place] # [facility] ([facility]) neutrophils # 6.6 10 1.5-8.5 Neutrophils # [facility] ( [facility]) eos # 0.2 10 0.0-0.5 Eos # [facility] ([facility]) baso # 0.1 10 0.0-0.2 Baso # [facility] ([facility]) ID Date Data Source [id number] 02/23/2020 08:15:00 AM EDT [place] ([facility]) Name Value Range Interpretation Code Description Data Mora rce(s) Supporting Document(s) estimated average glucose 126 mg/dL 60-110 Above high norm al Estimated Average Glucose [place] ([facility]) Hemoglobin A1c/Hemoglobin.total in Blood 6.0 % Hemoglobin a1C [place] ([facility]) ID Date Data Source [id number] 02/23/2020 08:15:00 AM EDT [place] ([facility]) Name Value Range Interpretation Code Description Data Mora rce(s) Supporting Document(s) total 25(oh) vitamin D 27.8 NG/mL 30.0-100.0 Below low normal T otal 25(Oh) Vitamin D [facility] ([facility]) ID Date Data Source [id number] 02/23/2020 08:15:00 AM EDT [place] ([facility]) Name Value Range Interpretation Code Description Data Mora rce(s) Supporting Document(s) Cholesterol in LDL [Mass/volume] in Serum or Plasma 77 mg/dL <1 00 LDL Cholesterol [facility] ([facility]) HDL cholesterol 34 mg/dL >40 Below low normal HDL Cholestero l [facility] ([facility]) triglycerides level 197 mg/dL <150 Above high normal Triglycer ides Level [facility] ([facility]) cholesterol level 150 mg/dL <200 Cholesterol Level [facility] ([facility]) cholesterol risk ratio <5 Cholesterol R isk Ratio [facility] ([facility]) non-HDL-C 116 mg/dL Non-hdl-c [facility] ([facility]) ID Date Data Source [id number] 02/23/2020 08:15:00 AM EDT [facility]) Name Value Range Interpretation Code Description Data Mora rce(s) Supporting Document(s) creatinine for GFR 0.74 mg/dL 0.55-1.30 Creatinine for GF R [facility] ([facility]) blood urea nitrogen 11 mg/dL 7-18 Blood Urea Nitro gen [facility] ([facility]) glucose, fasting 96 mg/dL 70-100 Glucose, Fasting AT [facility] ([facility]) potassium serum 4.5 mEq/L 3.5-5.1 Potassium Serum ATHE NA ([facility]) glomerular filtration rate > 60.0 >58 Glomerula r Filtration Rate [facility] ([facility]) sodium level 140 mEq/L 136-145 Sodium Level [facility] ([facility]) chloride level 108 mEq/L 98-107 Above high normal Chloride Level [facility] ([facility]) AST/SGOT 9 U/L 7-37 AST/SGOT [facility] ([facility]) calcium level 9.0 mg/dL 8.5-10.1 Calcium Level [facility] ( [facility]) carbon dioxide level 24 mEq/L 21-32 Carbon Dioxide Level RAD[facility] ([facility]) ALT/SGPT 20 U/L 12-78 ALT/SGPT [facility] ([facility]) anion gap 8 mEq/L 8-16 Anion Gap [facility] ([facility]) alkaline phosphatase 128 U/L 45-117 Above high normal Alkaline Phosphatase [facility] ([facility]) albumin 3.5 gm/dL 3.2-5.2 Albumin [facility] ([facility]) albumin/globulin ratio 1.2-2.2 Below low normal Albumin /globulin Ratio [facility] ([facility]) total protein 7.0 gm/dL 6.4-8.2 Total Protein [facility] ( [facility]) bilirubin,total 0.4 mg/dL 0.2-1.0 Bilirubin,total ATHE ([facility]) ID Date Data Source [id number] 02/23/2020 08:15:00 AM EDT RAD[facility] ([facility]) Name Value Range Interpretation Code Description Data Mora rce(s) Supporting Document(s) white blood count 10.6 10 4.0-10.0 Above high normal White Blood Count [facility] ([facility]) red blood count 4.79 10 4.00-5.40 Red Blood Count ATHE NA ([facility]) hemoglobin 14.9 g/dL 12.0-15.5 Hemoglobin [facility] ([facility]) hematocrit 46.0 % 36.0-47.0 Hematocrit [facility] ([facility]) mean corpuscular volume 96.0 fL 80.0-96.0 Mean Corpusc ular Volume [facility] ([facility]) mean corpuscular hemoglobin 31.1 pg 27.0-33.0 Mean Cor puscular Hemoglobin [facility] ([facility]) red cell distribution width 13.7 % 11.5-14.5 Red Cell Distribution Width [facility] ([facility]) mean corpuscular HGB conc 32.4 g/dL 32.0-36.5 Mean Corpu scular HGB Conc [facility] ([facility]) platelet count, automated 390 10 150-450 Platelet C ount, Automated [facility] ([facility]) lymph % 27.1 % 24.0-44.0 Lymph % [facility] ([facility]) mono % 7.5 % 0.0-5.0 Above high normal [place] % [facility] ([facility]) neutrophils % 62.1 % 36.0-66.0 Neutrophils % [facility] ( [facility]) baso % 0.6 % 0.0-1.0 Baso % [facility] ([facility]) eos % 2.1 % 0.0-3.0 Eos % [place] ([facility]) nucleated red blood cell % 0.0 % 0-0 Nucleated Red Blood Cell % [place] ([facility]) immature granulocyte % 0.6 % 0-3.0 Immature Gran ulocyte % [facility] ([facility]) eos # 0.2 10 0.0-0.5 Eos # [facility] ([facility]) lymph # 2.9 10 1.5-5.0 Lymph # [facility] ([facility]) mono # 0.8 10 0.0-0.8 [place] # [facility] ([facility]) neutrophils # 6.6 10 1.5-8.5 Neutrophils # [facility] ( [facility]) baso # 0.1 10 0.0-0.2 Baso # [facility] ([facility]) ID Date Data Source [id number] 02/23/2020 08:15:00 AM EDT [place] ([facility]) Name Value Range Interpretation Code Description Data Mora rce(s) Supporting Document(s) Hemoglobin A1c/Hemoglobin.total in Blood 6.0 % Hemoglobin a1C [facility] ([facility]) estimated average glucose 126 mg/dL 60-110 Above high norm al Estimated Average Glucose [facility] ([facility]) ID Date Data Source [id number] 02/23/2020 08:15:00 AM EDT [place] ([facility]) Name Value Range Interpretation Code Description Data Mora rce(s) Supporting Document(s) total 25(oh) vitamin D 27.8 NG/mL 30.0-100.0 Below low normal T otal 25(Oh) Vitamin D [facility] ([facility]) ID Date Data Source [id number] 02/23/2020 08:15:00 [facility] Name Value Range Interpretation Code Description Data Mora rce(s) Supporting Document(s) cholesterol level 150 mg/dL <200 Cholesterol Level RAD[facility] ([facility]) triglycerides level 197 mg/dL <150 Above high normal Triglycer ides Level [facility] ([facility]) non-HDL-C 116 mg/dL Non-hdl-c [facility] ([facility]) HDL cholesterol 34 mg/dL >40 Below low normal HDL Cholestero l [facility] ([facility]) Cholesterol in LDL [Mass/volume] in Serum or Plasma 77 mg/dL <1 00 LDL Cholesterol [facility] ([facility]) cholesterol risk ratio <5 Cholesterol R isk Ratio [place] ([facility]) ID Date Data Source [id number] 02/23/2020 08:15:00 AM EDT [facility]) Name Value Range Interpretation Code Description Data Mora rce(s) Supporting Document(s) glomerular filtration rate > 60.0 >58 Glomerula r Filtration Rate RAD[facility] ([facility]) glucose, fasting 96 mg/dL 70-100 Glucose, Fasting AT [facility] ([facility]) creatinine for GFR 0.74 mg/dL 0.55-1.30 Creatinine for GF R [facility] ([facility]) blood urea nitrogen 11 mg/dL 7-18 Blood Urea Nitro gen [facility] ([facility]) sodium level 140 mEq/L 136-145 Sodium Level RAD[facility] (No [facility], [facility]) carbon dioxide level 24 mEq/L 21-32 Carbon Dioxide Level [place] ([facility]) potassium serum 4.5 mEq/L 3.5-5.1 Potassium Serum ATHE NA ([facility]) anion gap 8 mEq/L 8-16 Anion Gap [facility] ([facility]) chloride level 108 mEq/L 98-107 Above high normal Chloride Level [facility] ([facility]) calcium level 9.0 mg/dL 8.5-10.1 Calcium Level [facility] ( [facility]) AST/SGOT 9 U/L 7-37 AST/SGOT [facility] ([facility]) alkaline phosphatase 128 U/L 45-117 Above high normal Alkaline Phosphatase [facility] ([facility]) ALT/SGPT 20 U/L 12-78 ALT/SGPT [facility] ([facility]) total protein 7.0 gm/dL 6.4-8.2 Total Protein [facility] ( [facility]) albumin/globulin ratio 1.2-2.2 Below low normal Albumin /globulin Ratio [facility] ([facility]) bilirubin,total 0.4 mg/dL 0.2-1.0 Bilirubin,total AT[facility] ([facility]) albumin 3.5 gm/dL 3.2-5.2 Albumin [facility] ([facility]) ID Date Data Source [id number] 02/23/2020 08:15:00 AM EDT RAD[facility] ([facility]) Name Value Range Interpretation Code Description Data Mora rce(s) Supporting Document(s) red blood count 4.79 10 4.00-5.40 Red Blood Count AT[facility] ([facility]) white blood count 10.6 10 4.0-10.0 Above high normal White Blood Count [facility] ([facility]) hemoglobin 14.9 g/dL 12.0-15.5 Hemoglobin [facility] ([facility]) mean corpuscular volume 96.0 fL 80.0-96.0 Mean Corpusc ular Volume [facility] ([facility]) hematocrit 46.0 % 36.0-47.0 Hematocrit [facility] ([facility]) red cell distribution width 13.7 % 11.5-14.5 Red Cell Distribution Width [facility] ([facility]) mean corpuscular hemoglobin 31.1 pg 27.0-33.0 Mean Cor puscular Hemoglobin [facility] ([facility]) mean corpuscular HGB conc 32.4 g/dL 32.0-36.5 Mean Corpu scular HGB Conc [facility] ([facility]) platelet count, automated 390 10 150-450 Platelet C ount, Automated [facility] ([facility]) lymph % 27.1 % 24.0-44.0 Lymph % [facility] ([facility]) mono % 7.5 % 0.0-5.0 Above high normal [place] % [place] ([facility]) neutrophils % 62.1 % 36.0-66.0 Neutrophils % [place] ( [facility]) eos % 2.1 % 0.0-3.0 Eos % [place] ([facility]) neutrophils # 6.6 10 1.5-8.5 Neutrophils # [place] ( [facility]) immature granulocyte % 0.6 % 0-3.0 Immature Gran ulocyte % [place] ([facility]) baso % 0.6 % 0.0-1.0 Baso % [place] ([facility]) nucleated red blood cell % 0.0 % 0-0 Nucleated Red Blood Cell % [place] ([facility]) eos # 0.2 10 0.0-0.5 Eos # [facility] ([facility]) baso # 0.1 10 0.0-0.2 Baso # [facility] ([facility]) mono # 0.8 10 0.0-0.8 [place] # [facility] ([facility]) lymph # 2.9 10 1.5-5.0 Lymph # [place] ([facility]) ID Date Data Source [id number] 02/23/2020 08:15:00 AM EDT [place] ([facility]) Name Value Range Interpretation Code Description Data Mora rce(s) Supporting Document(s) Hemoglobin A1c/Hemoglobin.total in Blood 6.0 % Hemoglobin a1C [place] ([facility]) estimated average glucose 126 mg/dL 60-110 Above high norm al Estimated Average Glucose [facility] ([facility]) ID Date Data Source [id number] 02/23/2020 08:15:00 AM EDT [facility] ([facility]) Name Value Range Interpretation Code Description Data Mora rce(s) Supporting Document(s) total 25(oh) vitamin D 27.8 NG/mL 30.0-100.0 Below low normal T otal 25(Oh) Vitamin D [facility] ([facility]) ID Date Data Source [id number] 02/23/2020 08:15:00 AM EDT RAD[facility] ([facility]) Name Value Range Interpretation Code Description Data Mora rce(s) Supporting Document(s) HDL cholesterol 34 mg/dL >40 Below low normal HDL Cholestero l [facility] ([facility]) triglycerides level 197 mg/dL <150 Above high normal Triglycer ides Level [facility] ([facility]) cholesterol level 150 mg/dL <200 Cholesterol Level [facility] ([facility]) non-HDL-C 116 mg/dL Non-hdl-c [facility] ([facility]) Cholesterol in LDL [Mass/volume] in Serum or Plasma 77 mg/dL <1 00 LDL Cholesterol [facility] ([facility]) cholesterol risk ratio <5 Cholesterol R isk Ratio [facility] ([facility]) ID Date Data Source [id number] 02/23/2020 08:15:00 AM EDT [place] ([facility]) Name Value Range Interpretation Code Description Data Mora rce(s) Supporting Document(s) glucose, fasting 96 mg/dL 70-100 Glucose, Fasting AT [facility] ([facility]) creatinine for GFR 0.74 mg/dL 0.55-1.30 Creatinine for GF R RAD[facility] ([facility]) glomerular filtration rate > 60.0 >58 Glomerula r Filtration Rate [facility] ([facility]) sodium level 140 mEq/L 136-145 Sodium Level [facility] (No [facility]) blood urea nitrogen 11 mg/dL 7-18 Blood Urea Nitro gen [facility] ([facility]) potassium serum 4.5 mEq/L 3.5-5.1 Potassium Serum AT[facility] ([facility]) chloride level 108 mEq/L 98-107 Above high normal Chloride Level [facility] ([facility]) anion gap 8 mEq/L 8-16 Anion Gap [facility] ([facility]) carbon dioxide level 24 mEq/L 21-32 Carbon Dioxide Level [facility] ([facility]) calcium level 9.0 mg/dL 8.5-10.1 Calcium Level [facility] ( [facility]) ALT/SGPT 20 U/L 12-78 ALT/SGPT [facility] ([facility]) AST/SGOT 9 U/L 7-37 AST/SGOT [facility] ([facility]) alkaline phosphatase 128 U/L 45-117 Above high normal Alkaline Phosphatase [facility] ([facility]) total protein 7.0 gm/dL 6.4-8.2 Total Protein [facility] ( [facility]) bilirubin,total 0.4 mg/dL 0.2-1.0 Bilirubin,total AT[facility] ([facility]) albumin/globulin ratio 1.2-2.2 Below low normal Albumin /globulin Ratio [facility] ([facility]) albumin 3.5 gm/dL 3.2-5.2 Albumin [facility] ([facility]) ID Date Data Source [id number] 02/23/2020 08:15:00 AM EDT RAD[facility] ([facility]) Name Value Range Interpretation Code Description Data Mora rce(s) Supporting Document(s) red blood count 4.79 10 4.00-5.40 Red Blood Count AT[facility] ([facility]) white blood count 10.6 10 4.0-10.0 Above high normal White Blood Count [facility] ([facility]) hemoglobin 14.9 g/dL 12.0-15.5 Hemoglobin [facility] ([facility]) mean corpuscular volume 96.0 fL 80.0-96.0 Mean Corpusc ular Volume [facility] ([facility]) hematocrit 46.0 % 36.0-47.0 Hematocrit [facility] ([facility]) mean corpuscular hemoglobin 31.1 pg 27.0-33.0 Mean Cor puscular Hemoglobin [facility] ([facility]) red cell distribution width 13.7 % 11.5-14.5 Red Cell Distribution Width [facility] ([facility]) mean corpuscular HGB conc 32.4 g/dL 32.0-36.5 Mean Corpu scular HGB Conc [facility] ([facility]) platelet count, automated 390 10 150-450 Platelet C ount, Automated [facility] ([facility]) neutrophils % 62.1 % 36.0-66.0 Neutrophils % [facility] ( [facility]) mono % 7.5 % 0.0-5.0 Above high normal [place] % [place] ([facility]) lymph % 27.1 % 24.0-44.0 Lymph % [place] ([facility]) eos % 2.1 % 0.0-3.0 Eos % [place] ([facility]) baso % 0.6 % 0.0-1.0 Baso % [place] ([facility]) immature granulocyte % 0.6 % 0-3.0 Immature Gran ulocyte % [place] ([facility]) nucleated red blood cell % 0.0 % 0-0 Nucleated Red Blood Cell % [place] ([facility]) neutrophils # 6.6 10 1.5-8.5 Neutrophils # [facility] ( [facility]) mono # 0.8 10 0.0-0.8 [place] # [facility] ([facility]) lymph # 2.9 10 1.5-5.0 Lymph # [facility] ([facility]) eos # 0.2 10 0.0-0.5 Eos # [facility] ([facility]) baso # 0.1 10 0.0-0.2 Baso # [facility] ([facility]) ID Date Data Source [id number] 02/23/2020 08:15:00 AM EDT [place] ([facility]) Name Value Range Interpretation Code Description Data Mora rce(s) Supporting Document(s) Hemoglobin A1c/Hemoglobin.total in Blood 6.0 % Hemoglobin a1C [facility] ([facility]) estimated average glucose 126 mg/dL 60-110 Above high norm al Estimated Average Glucose [place] ([facility]) ID Date Data Source [id number] 02/23/2020 08:15:00 AM EDT [place] ([facility]) Name Value Range Interpretation Code Description Data Mora rce(s) Supporting Document(s) total 25(oh) vitamin D 27.8 NG/mL 30.0-100.0 Below low normal T otal 25(Oh) Vitamin D [place] ([facility]) ID Date Data Source [id number] 02/23/2020 08:15:00 AM EDT [place] ([facility]) Name Value Range Interpretation Code Description Data Mora rce(s) Supporting Document(s) triglycerides level 197 mg/dL <150 Above high normal Triglycer ides Level [facility] ([facility]) HDL cholesterol 34 mg/dL >40 Below low normal HDL Cholestero l [place] ([facility]) Cholesterol in LDL [Mass/volume] in Serum or Plasma 77 mg/dL <1 00 LDL Cholesterol [facility] ([facility]) cholesterol level 150 mg/dL <200 Cholesterol Level [place] ([facility]) cholesterol risk ratio <5 Cholesterol R isk Ratio [place] ([facility]) non-HDL-C 116 mg/dL Non-hdl-c [facility] ([facility]) ID Date Data Source [id number] 02/23/2020 08:15:00 AM EDT [facility]) Name Value Range Interpretation Code Description Data Mora rce(s) Supporting Document(s) creatinine for GFR 0.74 mg/dL 0.55-1.30 Creatinine for GF R [place] ([facility]) glomerular filtration rate > 60.0 >58 Glomerula r Filtration Rate [facility] ([facility]) glucose, fasting 96 mg/dL 70-100 Glucose, Fasting AT [facility] ([facility]) blood urea nitrogen 11 mg/dL 7-18 Blood Urea Nitro gen [facility] ([facility]) chloride level 108 mEq/L 98-107 Above high normal Chloride Level [facility] ([facility]) sodium level 140 mEq/L 136-145 Sodium Level [facility] ([facility]) potassium serum 4.5 mEq/L 3.5-5.1 Potassium Serum ATHE NA ([facility]) carbon dioxide level 24 mEq/L 21-32 Carbon Dioxide Level [facility] ([facility]) alkaline phosphatase 128 U/L 45-117 Above high normal Alkaline Phosphatase [facility] ([facility]) anion gap 8 mEq/L 8-16 Anion Gap [facility] ([facility]) calcium level 9.0 mg/dL 8.5-10.1 Calcium Level [facility] ( [facility]) ALT/SGPT 20 U/L 12-78 ALT/SGPT [facility] ([facility]) AST/SGOT 9 U/L 7-37 AST/SGOT [facility] ([facility]) albumin/globulin ratio 1.2-2.2 Below low normal Albumin /globulin Ratio [facility] ([facility]) albumin 3.5 gm/dL 3.2-5.2 Albumin [facility] ([facility]) bilirubin,total 0.4 mg/dL 0.2-1.0 Bilirubin,total ATHE ([facility]) total protein 7.0 gm/dL 6.4-8.2 Total Protein [facility] ( [facility]) ID Date Data Source [id number] 02/23/2020 08:15:00 AM EDT [facility] ([facility]) Name Value Range Interpretation Code Description Data Mora rce(s) Supporting Document(s) red blood count 4.79 10 4.00-5.40 Red Blood Count [facility] ([facility]) white blood count 10.6 10 4.0-10.0 Above high normal White Blood Count [facility] ([facility]) mean corpuscular hemoglobin 31.1 pg 27.0-33.0 Mean Cor puscular Hemoglobin [facility] ([facility]) hematocrit 46.0 % 36.0-47.0 Hematocrit [facility] ([facility]) mean corpuscular volume 96.0 fL 80.0-96.0 Mean Corpusc ular Volume [facility] ([facility]) hemoglobin 14.9 g/dL 12.0-15.5 Hemoglobin [facility] ([facility]) red cell distribution width 13.7 % 11.5-14.5 Red Cell Distribution Width [facility] ([facility]) mean corpuscular HGB conc 32.4 g/dL 32.0-36.5 Mean Corpu scular HGB Conc [facility] ([facility]) platelet count, automated 390 10 150-450 Platelet C ount, Automated [facility] ([facility]) lymph % 27.1 % 24.0-44.0 Lymph % [facility] ([facility]) neutrophils % 62.1 % 36.0-66.0 Neutrophils % [place] ( [facility]) mono % 7.5 % 0.0-5.0 Above high normal [place] % [facility] ([facility]) immature granulocyte % 0.6 % 0-3.0 Immature Gran ulocyte % [facility] ([facility]) baso % 0.6 % 0.0-1.0 Baso % [facility] ([facility]) nucleated red blood cell % 0.0 % 0-0 Nucleated Red Blood Cell % [facility] ([facility]) eos % 2.1 % 0.0-3.0 Eos % [facility] ([facility]) neutrophils # 6.6 10 1.5-8.5 Neutrophils # [facility] ( [facility]) eos # 0.2 10 0.0-0.5 Eos # [facility] ([facility]) mono # 0.8 10 0.0-0.8 [place] # [facility] ([facility]) lymph # 2.9 10 1.5-5.0 Lymph # [facility] ([facility]) baso # 0.1 10 0.0-0.2 Baso # [facility] ([facility]) ID Date Data Source [id number] 02/23/2020 08:15:00 AM EDT [place] ([facility]) Name Value Range Interpretation Code Description Data Mora rce(s) Supporting Document(s) estimated average glucose 126 mg/dL 60-110 Above high norm al Estimated Average Glucose [place] ([facility]) Hemoglobin A1c/Hemoglobin.total in Blood 6.0 % Hemoglobin a1C [place] ([facility]) ID Date Data Source [id number] 02/23/2020 08:15:00 AM EDT [facility] ([facility]) Name Value Range Interpretation Code Description Data Mora rce(s) Supporting Document(s) total 25(oh) vitamin D 27.8 NG/mL 30.0-100.0 Below low normal T otal 25(Oh) Vitamin D [place] ([facility]) ID Date Data Source [id number] 02/23/2020 08:15:00 AM EDT [place] ([facility]) Name Value Range Interpretation Code Description Data Mora rce(s) Supporting Document(s) triglycerides level 197 mg/dL <150 Above high normal Triglycer ides Level [facility] ([facility]) cholesterol level 150 mg/dL <200 Cholesterol Level [place] ([facility]) Cholesterol in LDL [Mass/volume] in Serum or Plasma 77 mg/dL <1 00 LDL Cholesterol [facility] ([facility]) HDL cholesterol 34 mg/dL >40 Below low normal HDL Cholestero l [facility] ([facility]) cholesterol risk ratio <5 Cholesterol R isk Ratio [facility] ([facility]) non-HDL-C 116 mg/dL Non-hdl-c [facility] ([facility]) ID Date Data Source [id number] 02/23/2020 08:15:00 AM EDT [facility]) Name Value Range Interpretation Code Description Data Mora rce(s) Supporting Document(s) glucose, fasting 96 mg/dL 70-100 Glucose, Fasting AT [facility]) blood urea nitrogen 11 mg/dL 7-18 Blood Urea Nitro gen [facility] ([facility]) creatinine for GFR 0.74 mg/dL 0.55-1.30 Creatinine for GF R [facility] ([facility]) potassium serum 4.5 mEq/L 3.5-5.1 Potassium Serum ATHE NA ([facility]) glomerular filtration rate > 60.0 >58 [place]omer[place] r Filtration Rate [facility] ([facility]) sodium level 140 mEq/L 136-145 Sodium Level [facility] ([facility]) chloride level 108 mEq/L 98-107 Above high normal Chloride Level [facility] ([facility]) carbon dioxide level 24 mEq/L 21-32 Carbon Dioxide Level [facility] ([facility]) anion gap 8 mEq/L 8-16 Anion Gap [facility] ([facility]) ALT/SGPT 20 U/L 12-78 ALT/SGPT [facility] ([facility]) AST/SGOT 9 U/L 7-37 AST/SGOT [facility] ([facility]) calcium level 9.0 mg/dL 8.5-10.1 Calcium Level [facility] ( [facility]) bilirubin,total 0.4 mg/dL 0.2-1.0 Bilirubin,total AT[facility] ([facility]) alkaline phosphatase 128 U/L 45-117 Above high normal Alkaline Phosphatase [facility] ([facility]) albumin/globulin ratio 1.2-2.2 Below low normal Albumin /globulin Ratio [facility] ([facility]) total protein 7.0 gm/dL 6.4-8.2 Total Protein [facility] ( [facility]) albumin 3.5 gm/dL 3.2-5.2 Albumin [facility] ([facility]) ID Date Data Source [id number] 02/23/2020 08:15:00 AM EDT [facility] ([facility]) Name Value Range Interpretation Code Description Data Mora rce(s) Supporting Document(s) white blood count 10.6 10 4.0-10.0 Above high normal White Blood Count [facility] ([facility]) red blood count 4.79 10 4.00-5.40 Red Blood Count ATHE NA ([facility]) hemoglobin 14.9 g/dL 12.0-15.5 Hemoglobin [facility] ([facility]) hematocrit 46.0 % 36.0-47.0 Hematocrit [facility] ([facility]) mean corpuscular hemoglobin 31.1 pg 27.0-33.0 Mean Cor puscular Hemoglobin [facility] ([facility]) mean corpuscular volume 96.0 fL 80.0-96.0 Mean Corpusc ular Volume [facility] ([facility]) mean corpuscular HGB conc 32.4 g/dL 32.0-36.5 Mean Corpu scular HGB Conc [facility] ([facility]) neutrophils % 62.1 % 36.0-66.0 Neutrophils % [facility] ( [facility]) platelet count, automated 390 10 150-450 Platelet C ount, Automated [facility] ([facility]) red cell distribution width 13.7 % 11.5-14.5 Red Cell Distribution Width [facility] ([facility]) mono % 7.5 % 0.0-5.0 Above high normal [place] % [facility] ([facility]) lymph % 27.1 % 24.0-44.0 Lymph % [facility] ([facility]) eos % 2.1 % 0.0-3.0 Eos % [facility] ([facility]) baso % 0.6 % 0.0-1.0 Baso % [facility] ([facility]) immature granulocyte % 0.6 % 0-3.0 Immature Gran ulocyte % [facility] ([facility]) lymph # 2.9 10 1.5-5.0 Lymph # [facility] ([facility]) neutrophils # 6.6 10 1.5-8.5 Neutrophils # [facility] ( [facility]) nucleated red blood cell % 0.0 % 0-0 Nucleated Red Blood Cell % [facility] ([facility]) eos # 0.2 10 0.0-0.5 Eos # [facility] ([facility]) baso # 0.1 10 0.0-0.2 Baso # [facility] ([facility]) mono # 0.8 10 0.0-0.8 [place] # [facility] ([facility]) ID Date Data Source [id number] 02/23/2020 08:15:00 AM EDT [facility] ([facility]) Name Value Range Interpretation Code Description Data Mora rce(s) Supporting Document(s) Hemoglobin A1c/Hemoglobin.total in Blood 6.0 % Hemoglobin a1C [facility] ([facility]) estimated average glucose 126 mg/dL 60-110 Above high norm al Estimated Average Glucose [place] ([facility]) ID Date Data Source [id number] 02/23/2020 08:15:00 AM [facility]T [facility] Name Value Range Interpretation Code Description Data Mora rce(s) Supporting Document(s) total 25(oh) vitamin D 27.8 NG/mL 30.0-100.0 Below low normal T otal 25(Oh) Vitamin D [facility]) ID Date Data Source [id number] 02/23/2020 08:15:00 AM EDT [facility]) Name Value Range Interpretation Code Description Data Mora rce(s) Supporting Document(s) HDL cholesterol 34 mg/dL >40 Below low normal HDL Cholestero l RAD[facility] ([facility]) Cholesterol in LDL [Mass/volume] in Serum or Plasma 77 mg/dL <1 00 LDL Cholesterol [facility] ([facility]) cholesterol level 150 mg/dL <200 Cholesterol Level [facility] ([facility]) triglycerides level 197 mg/dL <150 Above high normal Triglycer ides Level [facility] ([facility]) non-HDL-C 116 mg/dL Non-hdl-c [facility] ([facility]) cholesterol risk ratio <5 Cholesterol R isk Ratio [place] ([facility]) ID Date Data Source [id number] 02/23/2020 08:15:00 AM EDT [facility]) Name Value Range Interpretation Code Description Data Mora rce(s) Supporting Document(s) glucose, fasting 96 mg/dL 70-100 Glucose, Fasting AT AIME ([facility]) blood urea nitrogen 11 mg/dL 7-18 Blood Urea Nitro gen RAD[facility] ([facility]) glomerular filtration rate > 60.0 >58 Glomerula r Filtration Rate [facility] ([facility]) creatinine for GFR 0.74 mg/dL 0.55-1.30 Creatinine for GF R [facility] ([facility]) chloride level 108 mEq/L 98-107 Above high normal Chloride Level [facility] ([facility]) carbon dioxide level 24 mEq/L 21-32 Carbon Dioxide Level [facility] ([facility]) potassium serum 4.5 mEq/L 3.5-5.1 Potassium Serum AT[facility] ([facility]) sodium level 140 mEq/L 136-145 Sodium Level [facility] ([facility]) ALT/SGPT 20 U/L 12-78 ALT/SGPT [facility] ([facility]) anion gap 8 mEq/L 8-16 Anion Gap [facility] ([facility]) calcium level 9.0 mg/dL 8.5-10.1 Calcium Level [facility] ( [facility]) AST/SGOT 9 U/L 7-37 AST/SGOT [facility] ([facility]) alkaline phosphatase 128 U/L 45-117 Above high normal Alkaline Phosphatase [facility] ([facility]) bilirubin,total 0.4 mg/dL 0.2-1.0 Bilirubin,total ATHE ([facility]) albumin 3.5 gm/dL 3.2-5.2 Albumin [facility] ([facility]) total protein 7.0 gm/dL 6.4-8.2 Total Protein [facility] ( [facility]) albumin/globulin ratio 1.2-2.2 Below low normal Albumin /globulin Ratio [facility] ([facility]) ID Date Data Source [id number] 02/23/2020 08:15:00 AM EDT [facility] ([facility]) Name Value Range Interpretation Code Description Data Mora rce(s) Supporting Document(s) white blood count 10.6 10 4.0-10.0 Above high normal White Blood Count [facility] ([facility]) red blood count 4.79 10 4.00-5.40 Red Blood Count ATHE NA ([facility]) hemoglobin 14.9 g/dL 12.0-15.5 Hemoglobin [facility] ([facility]) hematocrit 46.0 % 36.0-47.0 Hematocrit [facility] ([facility]) mean corpuscular hemoglobin 31.1 pg 27.0-33.0 Mean Cor puscular Hemoglobin [facility] ([facility]) mean corpuscular volume 96.0 fL 80.0-96.0 Mean Corpusc ular Volume [facility] ([facility]) mean corpuscular HGB conc 32.4 g/dL 32.0-36.5 Mean Corpu scular HGB Conc [facility] ([facility]) lymph % 27.1 % 24.0-44.0 Lymph % [facility] ([facility]) neutrophils % 62.1 % 36.0-66.0 Neutrophils % [facility] ( [facility]) platelet count, automated 390 10 150-450 Platelet C ount, Automated [facility] ([facility]) red cell distribution width 13.7 % 11.5-14.5 Red Cell Distribution Width [facility] ([facility]) eos % 2.1 % 0.0-3.0 Eos % [facility] ([facility]) baso % 0.6 % 0.0-1.0 Baso % [facility] ([facility]) mono % 7.5 % 0.0-5.0 Above high normal [place] % [facility] ([facility]) lymph # 2.9 10 1.5-5.0 Lymph # [facility] ([facility]) nucleated red blood cell % 0.0 % 0-0 Nucleated Red Blood Cell % [facility] ([facility]) immature granulocyte % 0.6 % 0-3.0 Immature Gran ulocyte % [facility] ([facility]) neutrophils # 6.6 10 1.5-8.5 Neutrophils # [facility] ( [facility]) baso # 0.1 10 0.0-0.2 Baso # [facility] ([facility]) eos # 0.2 10 0.0-0.5 Eos # [facility] ([facility]) mono # 0.8 10 0.0-0.8 Parker # [facility] ([facility]) ID Date Data Source [id number] 02/23/2020 08:15:00 AM EDT RAD[facility] ([facility]) Name Value Range Interpretation Code Description Data Mora rce(s) Supporting Document(s) Hemoglobin A1c/Hemoglobin.total in Blood 6.0 % Hemoglobin a1C [facility] ([facility]) estimated average glucose 126 mg/dL 60-110 Above high norm al Estimated Average Glucose [place] ([facility]) ID Date Data Source [id number] 02/23/2020 08:15:00 AM EDT [facility] ([facility]) Name Value Range Interpretation Code Description Data Mora rce(s) Supporting Document(s) total 25(oh) vitamin D 27.8 NG/mL 30.0-100.0 Below low normal T otal 25(Oh) Vitamin D [place] ([facility]) ID Date Data Source [id number] 02/23/2020 08:15:00 AM EDT RAD[facility] ([facility]) Name Value Range Interpretation Code Description Data Mora rce(s) Supporting Document(s) cholesterol level 150 mg/dL <200 Cholesterol Level [facility] ([facility]) triglycerides level 197 mg/dL <150 Above high normal Triglycer ides Level [facility] ([facility]) Cholesterol in LDL [Mass/volume] in Serum or Plasma 77 mg/dL <1 00 LDL Cholesterol [facility] ([facility]) non-HDL-C 116 mg/dL Non-hdl-c [facility] ([facility]) HDL cholesterol 34 mg/dL >40 Below low normal HDL Cholestero l [facility] ([facility]) cholesterol risk ratio <5 Cholesterol R isk Ratio [facility] ([facility]) ID Date Data Source [id number] 02/23/2020 08:15:00 AM EDT [facility] ([facility]) Name Value Range Interpretation Code Description Data Mora rce(s) Supporting Document(s) glucose, fasting 96 mg/dL 70-100 Glucose, Fasting AT [facility] ([facility]) blood urea nitrogen 11 mg/dL 7-18 Blood Urea Nitro gen [facility] ([facility]) creatinine for GFR 0.74 mg/dL 0.55-1.30 Creatinine for GF R RAD[facility] ([facility]) sodium level 140 mEq/L 136-145 Sodium Level [facility] ([facility]) glomerular filtration rate > 60.0 >58 Glomerula r Filtration Rate [facility] ([facility]) chloride level 108 mEq/L 98-107 Above high normal Chloride Level [facility] ([facility]) potassium serum 4.5 mEq/L 3.5-5.1 Potassium Serum ATHE ([facility]) anion gap 8 mEq/L 8-16 Anion Gap [facility] ([facility]) carbon dioxide level 24 mEq/L 21-32 Carbon Dioxide Level [facility] ([facility]) AST/SGOT 9 U/L 7-37 AST/SGOT [facility] ([facility]) ALT/SGPT 20 U/L 12-78 ALT/SGPT [facility] ([facility]) calcium level 9.0 mg/dL 8.5-10.1 Calcium Level [facility] ( [facility]) alkaline phosphatase 128 U/L 45-117 Above high normal Alkaline Phosphatase [facility] ([facility]) albumin 3.5 gm/dL 3.2-5.2 Albumin [facility] ([facility]) bilirubin,total 0.4 mg/dL 0.2-1.0 Bilirubin,total ATHE NA ([facility]) total protein 7.0 gm/dL 6.4-8.2 Total Protein [facility] ( [facility]) albumin/globulin ratio 1.2-2.2 Below low normal Albumin /globulin Ratio [facility] ([facility]) ID Date Data Source [id number] 02/23/2020 08:15:00 AM EDT [place] ([facility]) Name Value Range Interpretation Code Description Data Mora rce(s) Supporting Document(s) red blood count 4.79 10 4.00-5.40 Red Blood Count ATHE NA ([facility]) white blood count 10.6 10 4.0-10.0 Above high normal White Blood Count [facility] ([facility]) mean corpuscular volume 96.0 fL 80.0-96.0 Mean Corpusc ular Volume [facility] ([facility]) hemoglobin 14.9 g/dL 12.0-15.5 Hemoglobin [facility] ([facility]) hematocrit 46.0 % 36.0-47.0 Hematocrit [facility] ([facility]) mean corpuscular HGB conc 32.4 g/dL 32.0-36.5 Mean Corpu scular HGB Conc [facility] ([facility]) mean corpuscular hemoglobin 31.1 pg 27.0-33.0 Mean Cor puscular Hemoglobin [facility] ([facility]) neutrophils % 62.1 % 36.0-66.0 Neutrophils % [place] ( [facility]) platelet count, automated 390 10 150-450 Platelet C ount, Automated [place] ([facility]) red cell distribution width 13.7 % 11.5-14.5 Red Cell Distribution Width [facility] ([facility]) lymph % 27.1 % 24.0-44.0 Lymph % [facility] ([facility]) mono % 7.5 % 0.0-5.0 Above high normal [place] % [facility] ([facility]) eos % 2.1 % 0.0-3.0 Eos % [facility] ([facility]) immature granulocyte % 0.6 % 0-3.0 Immature Gran ulocyte % [facility] ([facility]) baso % 0.6 % 0.0-1.0 Baso % [facility] ([facility]) neutrophils # 6.6 10 1.5-8.5 Neutrophils # [facility] ( [facility]) nucleated red blood cell % 0.0 % 0-0 Nucleated Red Blood Cell % [facility] ([facility]) lymph # 2.9 10 1.5-5.0 Lymph # [facility] ([facility]) mono # 0.8 10 0.0-0.8 [place] # [facility] ([facility]) eos # 0.2 10 0.0-0.5 Eos # [facility] ([facility]) baso # 0.1 10 0.0-0.2 Baso # [facility] ([facility]) ID Date Data Source [id number] 02/23/2020 08:15:00 AM EDT [facility] ([facility]) Name Value Range Interpretation Code Description Data Mora rce(s) Supporting Document(s) estimated average glucose 126 mg/dL 60-110 Above high norm al Estimated Average Glucose [facility] ([facility]) Hemoglobin A1c/Hemoglobin.total in Blood 6.0 % Hemoglobin a1C [facility] ([facility]) ID Date Data Source [id number] 02/23/2020 08:15:00 AM EDT [facility] ([facility]) Name Value Range Interpretation Code Description Data Mora rce(s) Supporting Document(s) total 25(oh) vitamin D 27.8 NG/mL 30.0-100.0 Below low normal T otal 25(Oh) Vitamin D [place] ([facility]) ID Date Data Source [id number] 02/23/2020 08:15:00 AM EDT [facility] ([facility]) Name Value Range Interpretation Code Description Data Mora rce(s) Supporting Document(s) triglycerides level 197 mg/dL <150 Above high normal Triglycer ides Level [facility] ([facility]) cholesterol level 150 mg/dL <200 Cholesterol Level [facility] ([facility]) HDL cholesterol 34 mg/dL >40 Below low normal HDL Cholestero l [facility] ([facility]) non-HDL-C 116 mg/dL Non-hdl-c [facility] ([facility]) Cholesterol in LDL [Mass/volume] in Serum or Plasma 77 mg/dL <1 00 LDL Cholesterol [facility] ([facility]) cholesterol risk ratio <5 Cholesterol R isk Ratio [facility] ([facility]) ID Date Data Source [id number] 02/23/2020 08:15:00 AM EDT [facility] ([facility]) Name Value Range Interpretation Code Description Data Mora rce(s) Supporting Document(s) blood urea nitrogen 11 mg/dL 7-18 Blood Urea Nitro gen [facility] ([facility]) creatinine for GFR 0.74 mg/dL 0.55-1.30 Creatinine for GF R [facility] ([facility]) glomerular filtration rate > 60.0 >58 Glomerula r Filtration Rate [facility] ([facility]) glucose, fasting 96 mg/dL 70-100 Glucose, Fasting AT [facility] ([facility]) sodium level 140 mEq/L 136-145 Sodium Level [facility] (No [facility]) chloride level 108 mEq/L 98-107 Above high normal Chloride Level [facility] ([facility]) potassium serum 4.5 mEq/L 3.5-5.1 Potassium Serum ATHE NA ([facility]) carbon dioxide level 24 mEq/L 21-32 Carbon Dioxide Level [facility] ([facility]) calcium level 9.0 mg/dL 8.5-10.1 Calcium Level [facility] ( [facility]) ALT/SGPT 20 U/L 12-78 ALT/SGPT [facility] ([facility]) AST/SGOT 9 U/L 7-37 AST/SGOT [facility] ([facility]) anion gap 8 mEq/L 8-16 Anion Gap [facility] ([facility]) bilirubin,total 0.4 mg/dL 0.2-1.0 Bilirubin,total ATHE ([facility]) alkaline phosphatase 128 U/L 45-117 Above high normal Alkaline Phosphatase [facility] ([facility]) total protein 7.0 gm/dL 6.4-8.2 Total Protein [facility] ( [facility]) albumin 3.5 gm/dL 3.2-5.2 Albumin [facility] ([facility]) albumin/globulin ratio 1.2-2.2 Below low normal Albumin /globulin Ratio [facility] ([facility]) ID Date Data Source [id number] 02/23/2020 08:15:00 AM EDT [facility] ([facility]) Name Value Range Interpretation Code Description Data Mora rce(s) Supporting Document(s) red blood count 4.79 10 4.00-5.40 Red Blood Count ATHE NA ([facility]) white blood count 10.6 10 4.0-10.0 Above high normal White Blood Count [facility] ([facility]) mean corpuscular volume 96.0 fL 80.0-96.0 Mean Corpusc ular Volume [facility] ([facility]) hemoglobin 14.9 g/dL 12.0-15.5 Hemoglobin [facility] ([facility]) hematocrit 46.0 % 36.0-47.0 Hematocrit [facility] ([facility]) platelet count, automated 390 10 150-450 Platelet C ount, Automated [facility] ([facility]) mean corpuscular hemoglobin 31.1 pg 27.0-33.0 Mean Cor puscular Hemoglobin [facility] ([facility]) mean corpuscular HGB conc 32.4 g/dL 32.0-36.5 Mean Corpu scular HGB Conc [facility] ([facility]) red cell distribution width 13.7 % 11.5-14.5 Red Cell Distribution Width [facility] ([facility]) neutrophils % 62.1 % 36.0-66.0 Neutrophils % [facility] ( [facility]) mono % 7.5 % 0.0-5.0 Above high normal [place] % [facility] ([facility]) lymph % 27.1 % 24.0-44.0 Lymph % [facility] ([facility]) baso % 0.6 % 0.0-1.0 Baso % [facility] ([facility]) eos % 2.1 % 0.0-3.0 Eos % [facility] ([facility]) immature granulocyte % 0.6 % 0-3.0 Immature Gran ulocyte % [facility] ([facility]) mono # 0.8 10 0.0-0.8 [place] # [facility] ([facility]) neutrophils # 6.6 10 1.5-8.5 Neutrophils # [facility] ( [facility]) lymph # 2.9 10 1.5-5.0 Lymph # [facility] ([facility]) nucleated red blood cell % 0.0 % 0-0 Nucleated Red Blood Cell % [facility] ([facility]) eos # 0.2 10 0.0-0.5 Eos # [facility] ([facility]) baso # 0.1 10 0.0-0.2 Baso # [facility] ([facility]) Procedure Social History No Information Vital Signs ID Date Data Source [id number] Name Value Range Interpretation Code Description Data Source(s) Body weight 261.00 [lb_av] 261.00 [lb_av] NAVIN T ([facility]) Body height 65.50 [in_i] 65.50 [in_i] [facility] ([facility] 5'5.50" Body mass index (BMI) [Ratio] 42.8 kg/m2 42.8 k g/m2 MEDENT ([facility]) Diastolic blood pressure 64 mm[Hg] 64 mm[Hg] MEDENT ([facility]) sitting Heart rate 100 /min 100 /min [facility] ([facility]) Regular Respiratory rate 16 /min 16 /min MED[facility] ( [facility]) Systolic blood pressure 118 mm[Hg] 118 mm[Hg] M EDENT ([facility]) sitting, large cuff Diastolic blood pressure 68 mm[Hg] 68 mm[Hg] MED[facility] ([facility]) sitting, large cuff Systolic blood pressure 112 mm[Hg] 112 mm[Hg] M EDENT ([facility]) sitting Diastolic blood pressure 80 mm[Hg] 80 mm[Hg] MEDENT ([facility] ) Respiratory rate 20 /min 20 /min MED[facility] ( [facility] ) Systolic blood pressure 118 mm[Hg] 118 mm[Hg] M EDENT ([facility] ) Heart rate 116 /min 116 /min MED[facility] ([facility] ) Body weight 265.38 [lb_av] 265.38 [lb_av] MEDEN T ([facility]) Body height 66 [in_i] 66 [in_i] MEDENT ([facility]) 5'6" Body mass index (BMI) [Ratio] 42.8 kg/m2 42.8 k g/m2 MED[facility] ([facility]) Body temperature 96.9 [degF] 96.9 [degF] MEDENT ([facility]) Diastolic blood pressure 83 mm[Hg] 83 mm[Hg] RAD[facility] ([facility]) Diastolic blood pressure 93 mm[Hg] 93 mm[Hg] [facility] ([facility]) Body height 66 [in_i] 66 [in_i] [facility] ([facility]) Body mass index (BMI) [Ratio] 43.6 kg/m2 43.6 k g/m2 [facility] ([facility]) Systolic blood pressure 126 mm[Hg] 126 mm[Hg] [facility] Systolic blood pressure 141 mm[Hg] 141 mm[Hg] [facility] ([facility]) Body weight 4320 [oz_av] 4320 [oz_av] RAD[facility] ([facility]) Diastolic blood pressure 83 mm[Hg] 83 mm[Hg] [facility] ([facility]) Diastolic blood pressure 93 mm[Hg] 93 mm[Hg] [facility] ([facility]) Body height 66 [in_i] 66 [in_i] [facility] ([facility]) Body mass index (BMI) [Ratio] 43.6 kg/m2 43.6 k g/m2 [facility] ([facility]) Systolic blood pressure 126 mm[Hg] 126 mm[Hg] A [facility] ([facility]) Systolic blood pressure 141 mm[Hg] 141 mm[Hg] A [facility] ([facility]) Body weight 4320 [oz_av] 4320 [oz_av] RAD[facility] ([facility]) Diastolic blood pressure 87 mm[Hg] 87 mm[Hg] [facility] ([facility]) Body height 66 [in_i] 66 [in_i] [facility] ([facility]) Body mass index (BMI) [Ratio] 42.9 kg/m2 42.9 k g/m2 [facility] ([facility]) Systolic blood pressure 129 mm[Hg] 129 mm[Hg] A [facility] ([facility]) Body weight 4256 [oz_av] 4256 [oz_av] [facility] ([facility]) Diastolic blood pressure 87 mm[Hg] 87 mm[Hg] [facility] ([facility]) Body height 66 [in_i] 66 [in_i] [facility] ([facility]) Body mass index (BMI) [Ratio] 42.9 kg/m2 42.9 k g/m2 [facility] ([facility]) Systolic blood pressure 129 mm[Hg] 129 mm[Hg] [facility] Body weight 4256 [oz_av] 4256 [oz_av] [facility] ([facility]) Body weight 4256 [oz_av] 4256 [oz_av] [facility] ([facility]) Diastolic blood pressure 87 mm[Hg] 87 mm[Hg] [facility] ([facility]) Body height 66 [in_i] 66 [in_i] [facility] ([facility]) Body mass index (BMI) [Ratio] 42.9 kg/m2 42.9 k g/m2 [facility] ([facility]) Systolic blood pressure 129 mm[Hg] 129 mm[Hg] [facility] Diastolic blood pressure 87 mm[Hg] 87 mm[Hg] [facility] ([facility]) Body height 66 [in_i] 66 [in_i] [facility] ([facility]) Body mass index (BMI) [Ratio] 42.9 kg/m2 42.9 k g/m2 [facility] ([facility]) Systolic blood pressure 129 mm[Hg] 129 mm[Hg] A THENA ([facility]) Body weight 4256 [oz_av] 4256 [oz_av] RAD[facility] ([facility]) Body weight 268 [lb_av] 268 [lb_av] RAD[facility] ([facility]) Diastolic blood pressure 91 mm[Hg] 91 mm[Hg] RADHA ([facility]) Body height 66 [in_i] 66 [in_i] RAD[facility] ([facility]) Body mass index (BMI) [Ratio] 43.3 kg/m2 43.3 k g/m2 RAD[facility] ([facility]) Systolic blood pressure 141 mm[Hg] 141 mm[Hg] A THENA ([facility]) Diastolic blood pressure 80 mm[Hg] 80 mm[Hg] RAD[facility] ([facility]) Diastolic blood pressure 82 mm[Hg] 82 mm[Hg] RAD[facility] ([facility]) Body height 66 [in_i] 66 [in_i] RAD[facility] ([facility]) Body mass index (BMI) [Ratio] 42.2 kg/m2 42.2 k g/m2 [facility] ([facility]) Systolic blood pressure 130 mm[Hg] 130 mm[Hg] A [facility] ([facility]) Systolic blood pressure 136 mm[Hg] 136 mm[Hg] A [facility] ([facility]) Body weight 4185.6 [oz_av] 4185.6 [oz_av] ATHEN A ([facility]) Diastolic blood pressure 80 mm[Hg] 80 mm[Hg] RAD[facility] ([facility]) Diastolic blood pressure 82 mm[Hg] 82 mm[Hg] RAD[facility] ([facility]) Body height 66 [in_i] 66 [in_i] RAD[facility] ([facility]) Body mass index (BMI) [Ratio] 42.2 kg/m2 42.2 k g/m2 [facility] ([facility]) Systolic blood pressure 130 mm[Hg] 130 mm[Hg] A THENA ([facility]) Systolic blood pressure 136 mm[Hg] 136 mm[Hg] A [facility] ([facility]) Body weight 4185.6 [oz_av] 4185.6 [oz_av] ATHEN A ([facility]) Diastolic blood pressure 80 mm[Hg] 80 mm[Hg] RAD[facility] ([facility]) Diastolic blood pressure 82 mm[Hg] 82 mm[Hg] RAD[facility] ([facility]) Body height 66 [in_i] 66 [in_i] [facility] ([facility]) Body mass index (BMI) [Ratio] 42.2 kg/m2 42.2 k g/m2 [facility] ([facility]) Systolic blood pressure 130 mm[Hg] 130 mm[Hg] [facility] Systolic blood pressure 136 mm[Hg] 136 mm[Hg] [facility] Body weight 4185.6 [oz_av] 4185.6 [oz_av] ATHEN A ([facility]) Diastolic blood pressure 82 mm[Hg] 82 mm[Hg] RAD[facility] ([facility]) Body height 66 [in_i] 66 [in_i] [facility] ([facility]) Body mass index (BMI) [Ratio] 42.2 kg/m2 42.2 k g/m2 [facility] ([facility]) Systolic blood pressure 130 mm[Hg] 130 mm[Hg] [facility] Systolic blood pressure 136 mm[Hg] 136 mm[Hg] A [facility] ([facility]) Body weight 4185.6 [oz_av] 4185.6 [oz_av] ATHEN A ([facility]) Diastolic blood pressure 80 mm[Hg] 80 mm[Hg] RAD[facility] ([facility]) Body height 66 [in_i] 66 [in_i] [facility] ([facility]) Body height 66 [in_i] 66 [in_i] [facility] ([facility]) Body height 66 [in_i] 66 [in_i] [facility] ([facility]) Body height 66 [in_i] 66 [in_i] [facility] ([facility]) Body height 66 [in_i] 66 [in_i] [facility] ([facility]) Diastolic blood pressure 80 mm[Hg] 80 mm[Hg] [facility] ([facility]) Body height 66 [in_i] 66 [in_i] [facility] ([facility]) Body mass index (BMI) [Ratio] 43.8 kg/m2 43.8 k g/m2 [facility] ([facility]) Systolic blood pressure 121 mm[Hg] 121 mm[Hg] A [facility] ([facility]) Body weight 4340 [oz_av] 4340 [oz_av] [facility] ([facility]) Diastolic blood pressure 80 mm[Hg] 80 mm[Hg] [facility] ([facility]) Body height 66 [in_i] 66 [in_i] [facility] ([facility]) Body mass index (BMI) [Ratio] 43.8 kg/m2 43.8 k g/m2 [facility] ([facility]) Systolic blood pressure 121 mm[Hg] 121 mm[Hg] [facility] Body weight 4340 [oz_av] 4340 [oz_av] [facility] ([facility]) Diastolic blood pressure 80 mm[Hg] 80 mm[Hg] [facility] ([facility]) Body height 66 [in_i] 66 [in_i] [facility] ([facility]) Body mass index (BMI) [Ratio] 43.8 kg/m2 43.8 k g/m2 RADHA ([facility]) Systolic blood pressure 121 mm[Hg] 121 mm[Hg] A THENA ([facility]) Body weight 4340 [oz_av] 4340 [oz_av] RADHA ([facility]) Diastolic blood pressure 80 mm[Hg] 80 mm[Hg] RADHA ([facility]) Body height 66 [in_i] 66 [in_i] RADHA ([facility]) Body mass index (BMI) [Ratio] 43.8 kg/m2 43.8 k g/m2 RADHA ([facility]) Systolic blood pressure 121 mm[Hg] 121 mm[Hg] A THENA ([facility]) Body weight 4340 [oz_av] 4340 [oz_av] RADHA ([facility]) Diastolic blood pressure 80 mm[Hg] 80 mm[Hg] RADHA ([facility]) Body height 66 [in_i] 66 [in_i] RADHA ([facility]) Body mass index (BMI) [Ratio] 43.8 kg/m2 43.8 k g/m2 RADHA ([facility]) Systolic blood pressure 121 mm[Hg] 121 mm[Hg] A THENA ([facility]) Body weight 4340 [oz_av] 4340 [oz_av] RADHA ([facility]) Diastolic blood pressure 80 mm[Hg] 80 mm[Hg] RADHA ([facility]) Body height 66 [in_i] 66 [in_i] RADHA ([facility]) Body mass index (BMI) [Ratio] 43.8 kg/m2 43.8 k g/m2 RADHA ([facility]) Systolic blood pressure 121 mm[Hg] 121 mm[Hg] A THENA ([facility]) Body weight 4340 [oz_av] 4340 [oz_av] RADHA ([facility]) Body height 66 [in_i] 66 [in_i] RADHA ([facility]) Body height 66 [in_i] 66 [in_i] RADHA ([facility]) Body height 66 [in_i] 66 [in_i] RADHA ([facility]) Body height 66 [in_i] 66 [in_i] RADHA ([facility]) Body height 66 [in_i] 66 [in_i] RADHA ([facility]) Body height 66 [in_i] 66 [in_i] RADHA ([facility]) Body height 66 [in_i] 66 [in_i] RADHA ([facility]) Body weight 265.00 [lb_av] 265.00 [lb_av] NAVIN T ([facility]) Body height 65.50 [in_i] 65.50 [in_i] CALVIN ([facility]) 5'5.50" Body mass index (BMI) [Ratio] 43.4 kg/m2 43.4 k g/m2 MEDENT ([facility]) Heart rate 96 /min 96 /min MEDENT ([facility]) Regular Respiratory rate 16 /min 16 /min MEDENT ( [facility]) Systolic blood pressure 114 mm[Hg] 114 mm[Hg] M EDBISI ([facility]) sitting, large cuff Diastolic blood pressure 64 mm[Hg] 64 mm[Hg] MEDENT ([facility]) sitting, large cuff Systolic blood pressure 112 mm[Hg] 112 mm[Hg] M EDBISI ([facility]) sitting Diastolic blood pressure 60 mm[Hg] 60 mm[Hg] CALVIN ([facility]) sitting Body height 66 [in_i] 66 [in_i] RADHA ([facility]) Diastolic blood pressure 80 mm[Hg] 80 mm[Hg] RADHA ([facility]) Body height 66 [in_i] 66 [in_i] RADHA ([facility]) Body mass index (BMI) [Ratio] 43.3 kg/m2 43.3 k g/m2 RADHA ([facility]) Systolic blood pressure 128 mm[Hg] 128 mm[Hg] A THENA ([facility]) Body weight 268.3 [lb_av] 268.3 [lb_av] RADHA ([facility]) Diastolic blood pressure 80 mm[Hg] 80 mm[Hg] RADHA ([facility]) Body height 66 [in_i] 66 [in_i] RADHA ([facility]) Body mass index (BMI) [Ratio] 43.3 kg/m2 43.3 k g/m2 RADHA ([facility]) Systolic blood pressure 128 mm[Hg] 128 mm[Hg] A THENA ([facility]) Body weight 268.3 [lb_av] 268.3 [lb_av] RADHA ([facility]) Body height 66 [in_i] 66 [in_i] RADHA ([facility]) Diastolic blood pressure 80 mm[Hg] 80 mm[Hg] RADHA ([facility]) Body height 66 [in_i] 66 [in_i] RADHA ([facility]) Body mass index (BMI) [Ratio] 43.3 kg/m2 43.3 k g/m2 RADHA ([facility]) Systolic blood pressure 128 mm[Hg] 128 mm[Hg] A THENA ([facility]) Body weight 268.3 [lb_av] 268.3 [lb_av] RADHA ([facility]) Body height 66 [in_i] 66 [in_i] RADHA ([facility]) Diastolic blood pressure 80 mm[Hg] 80 mm[Hg] RADHA ([facility]) Diastolic blood pressure 80 mm[Hg] 80 mm[Hg] RADHA ([facility]) Body height 66 [in_i] 66 [in_i] RADHA ([facility]) Diastolic blood pressure 80 mm[Hg] 80 mm[Hg] RADHA ([facility]) Body mass index (BMI) [Ratio] 43.3 kg/m2 43.3 k g/m2 RADHA ([facility]) Systolic blood pressure 128 mm[Hg] 128 mm[Hg] A THENA ([facility]) Body weight 268.3 [lb_av] 268.3 [lb_av] RADHA ([facility]) Body height 66 [in_i] 66 [in_i] RADHA ([facility]) Body mass index (BMI) [Ratio] 43.3 kg/m2 43.3 k g/m2 RADHA ([facility]) Systolic blood pressure 128 mm[Hg] 128 mm[Hg] A THENA ([facility]) Body weight 268.3 [lb_av] 268.3 [lb_av] RADHA ([facility]) Body height 66 [in_i] 66 [in_i] RADHA ([facility]) Body mass index (BMI) [Ratio] 43.3 kg/m2 43.3 k g/m2 RADHA ([facility]) Systolic blood pressure 128 mm[Hg] 128 mm[Hg] A THENA ([facility]) Body weight 268.3 [lb_av] 268.3 [lb_av] RADHA ([facility]) Diastolic blood pressure 80 mm[Hg] 80 mm[Hg] RADHA ([facility]) Body height 66 [in_i] 66 [in_i] RADHA ([facility]) Body mass index (BMI) [Ratio] 43.3 kg/m2 43.3 k g/m2 RADHA ([facility]) Systolic blood pressure 128 mm[Hg] 128 mm[Hg] A THENA ([facility]) Body weight 268.3 [lb_av] 268.3 [lb_av] RADHA ([facility]) Body height 66 [in_i] 66 [in_i] RADHA ([facility]) Diastolic blood pressure 80 mm[Hg] 80 mm[Hg] RADHA ([facility]) Body mass index (BMI) [Ratio] 43.3 kg/m2 43.3 k g/m2 RADHA ([facility]) Body height 66 [in_i] 66 [in_i] RADHA ([facility]) Systolic blood pressure 128 mm[Hg] 128 mm[Hg] A THENA ([facility]) Body weight 268.3 [lb_av] 268.3 [lb_av] RADHA ([facility]) Body height 66 [in_i] 66 [in_i] RADHA ([facility]) Body height 66 [in_i] 66 [in_i] RADHA ([facility]) Body height 66 [in_i] 66 [in_i] RADHA ([facility]) Diastolic blood pressure 80 mm[Hg] 80 mm[Hg] MEDENT ([facility]) Heart rate 76 /min 76 /min MEDENT ([facility]) Respiratory rate 16 /min 16 /min MEDENT ( [facility]) Systolic blood pressure 120 mm[Hg] 120 mm[Hg] M EDENT ([facility] ) Systolic blood pressure 132 mm[Hg] 132 mm[Hg] A THENA ([facility]) Body mass index (BMI) [Ratio] 41.8 kg/m2 41.8 k g/m2 RADHA ([facility]) Body weight 4144 [oz_av] 4144 [oz_av] RADHA ([facility]) Diastolic blood pressure 87 mm[Hg] 87 mm[Hg] RADHA ([facility]) Body height 66 [in_i] 66 [in_i] RADHA ([facility]) Body weight 4144 [oz_av] 4144 [oz_av] RADHA ([facility]) Diastolic blood pressure 87 mm[Hg] 87 mm[Hg] RADHA ([facility]) Body height 66 [in_i] 66 [in_i] RADHA ([facility]) Body mass index (BMI) [Ratio] 41.8 kg/m2 41.8 k g/m2 RADHA ([facility]) Systolic blood pressure 132 mm[Hg] 132 [facility][Hg] [facility] Diastolic blood pressure 87 mm[Hg] 87 mm[Hg] RADHA ([facility]) Body height 66 [in_i] 66 [in_i] RADHA ([facility]) Body mass index (BMI) [Ratio] 41.8 kg/m2 41.8 k g/m2 RADHA ([facility]) Systolic blood pressure 132 mm[Hg] 132 mm[Hg] A THENA ([facility]) Body weight 4144 [oz_av] 4144 [oz_av] RADHA ([facility]) Body mass index (BMI) [Ratio] 41.8 kg/m2 41.8 k g/m2 RADHA ([facility]) Systolic blood pressure 132 mm[Hg] 132 mm[Hg] [facility] Body weight 4144 [oz_av] 4144 [oz_av] RADHA ([facility]) Diastolic blood pressure 87 mm[Hg] 87 mm[Hg] RADHA ([facility]) Body height 66 [in_i] 66 [in_i] RADHA ([facility]) Diastolic blood pressure 87 mm[Hg] 87 mm[Hg] RADHA ([facility]) Body height 66 [in_i] 66 [in_i] RADHA ([facility]) Body mass index (BMI) [Ratio] 41.8 kg/m2 41.8 k g/m2 RADHA ([facility]) Systolic blood pressure 132 mm[Hg] 132 mm[Hg] A THENA ([facility]) Body weight 4144 [oz_av] 4144 [oz_av] RADHA ([facility]) Diastolic blood pressure 87 mm[Hg] 87 mm[Hg] RADHA ([facility]) Body height 66 [in_i] 66 [in_i] RADHA ([facility]) Body mass index (BMI) [Ratio] 41.8 kg/m2 41.8 k g/m2 RADHA ([facility]) Systolic blood pressure 132 mm[Hg] 132 mm[Hg] A THENA ([facility]) Body weight 4144 [oz_av] 4144 [oz_av] RADHA ([facility]) Body height 66 [in_i] 66 [in_i] RADHA ([facility]) Body mass index (BMI) [Ratio] 41.8 kg/m2 41.8 k g/m2 RADHA ([facility]) Systolic blood pressure 132 mm[Hg] 132 mm[Hg] [facility] Body weight 4144 [oz_av] 4144 [oz_av] RADHA ([facility]) Diastolic blood pressure 87 mm[Hg] 87 mm[Hg] RADHA ([facility]) Diastolic blood pressure 87 mm[Hg] 87 mm[Hg] RADHA ([facility]) Body height 66 [in_i] 66 [in_i] RADHA ([facility]) Body mass index (BMI) [Ratio] 41.8 kg/m2 41.8 k g/m2 RADHA ([facility]) Systolic blood pressure 132 mm[Hg] 132 mm[Hg] A THENA ([facility]) Body weight 4144 [oz_av] 4144 [oz_av] RADHA ([facility]) Diastolic blood pressure 87 mm[Hg] 87 mm[Hg] RADHA ([facility]) Body height 66 [in_i] 66 [in_i] RADHA ([facility]) Body mass index (BMI) [Ratio] 41.8 kg/m2 41.8 k g/m2 RADHA ([facility]) Systolic blood pressure 132 mm[Hg] 132 mm[Hg] A THENA ([facility]) Body weight 4144 [oz_av] 4144 [oz_av] RADHA ([facility]) Body temperature 96.4 [degF] 96.4 [degF] MEDENT ([facility]) Body temperature 97.5 [degF] 97.5 [degF] MEDENT ([facility]) Heart rate 76 /min 76 /min MEDENT ([facility]) Regular Respiratory rate 16 /min 16 /min MEDENT ( [facility]) Systolic blood pressure 122 mm[Hg] 122 mm[Hg] M EDENT ([facility]) sitting, large cuff Diastolic blood pressure 66 mm[Hg] 66 mm[Hg] MEDENT ([facility]) sitting, large cuff Systolic blood pressure 124 mm[Hg] 124 mm[Hg] M MADDI ([facility]) sitting Diastolic blood pressure 66 mm[Hg] 66 mm[Hg] MEDBISI ([facility]) sitting Body weight 253.00 [lb_av] 253.00 [lb_av] NAVIN T ([facility]) Body height 65.50 [in_i] 65.50 [in_i] CALVIN ([facility]) 5'5.50" Body mass index (BMI) [Ratio] 41.5 kg/m2 41.5 k g/m2 MEDBISI ([facility]) Diastolic blood pressure 72 mm[Hg] 72 mm[Hg] RADHA ([facility]) Body height 66 [in_i] 66 [in_i] RADHA ([facility]) Body mass index (BMI) [Ratio] 39.4 kg/m2 39.4 k g/m2 RADHA ([facility]) Systolic blood pressure 107 mm[Hg] 107 mm[Hg] [facility] ([facility]) Body weight 3910 [oz_av] 3910 [oz_av] RADHA ([facility]) Diastolic blood pressure 72 mm[Hg] 72 mm[Hg] RADHA ([facility]) Body height 66 [in_i] 66 [in_i] RADHA ([facility]) Body mass index (BMI) [Ratio] 39.4 kg/m2 39.4 k g/m2 RADHA ([facility]) Systolic blood pressure 107 mm[Hg] 107 mm[Hg] [facility] Body weight 3910 [oz_av] 3910 [oz_av] RADHA ([facility]) Diastolic blood pressure 72 mm[Hg] 72 mm[Hg] RADHA ([facility]) Body mass index (BMI) [Ratio] 39.4 kg/m2 39.4 k g/m2 RADHA ([facility]) Systolic blood pressure 107 mm[Hg] 107 mm[Hg] A [facility] ([facility]) Body weight 3910 [oz_av] 3910 [oz_av] RADHA ([facility]) Body height 66 [in_i] 66 [in_i] RADHA ([facility]) Diastolic blood pressure 72 mm[Hg] 72 mm[Hg] RADHA ([facility]) Body height 66 [in_i] 66 [in_i] RADHA ([facility]) Body mass index (BMI) [Ratio] 39.4 kg/m2 39.4 k g/m2 RADHA ([facility]) Systolic blood pressure 107 mm[Hg] 107 mm[Hg] A THENA ([facility]) Body weight 3910 [oz_av] 3910 [oz_av] RADHA ([facility]) Diastolic blood pressure 72 mm[Hg] 72 mm[Hg] RADHA ([facility]) Body height 66 [in_i] 66 [in_i] RADHA ([facility]) Body mass index (BMI) [Ratio] 39.4 kg/m2 39.4 k g/m2 RADHA ([facility]) Systolic blood pressure 107 mm[Hg] 107 mm[Hg] A THENA ([facility]) Body weight 3910 [oz_av] 3910 [oz_av] RADHA ([facility]) Diastolic blood pressure 72 mm[Hg] 72 mm[Hg] RADHA ([facility]) Body height 66 [in_i] 66 [in_i] RADHA ([facility]) Body mass index (BMI) [Ratio] 39.4 kg/m2 39.4 k g/m2 RADHA ([facility]) Systolic blood pressure 107 mm[Hg] 107 mm[Hg] A THENA ([facility]) Body weight 3910 [oz_av] 3910 [oz_av] RADHA ([facility]) Diastolic blood pressure 72 mm[Hg] 72 mm[Hg] RADHA ([facility]) Body height 66 [in_i] 66 [in_i] RADHA ([facility]) Body mass index (BMI) [Ratio] 39.4 kg/m2 39.4 k g/m2 RADHA ([facility]) Systolic blood pressure 107 mm[Hg] 107 mm[Hg] A THENA ([facility]) Body weight 3910 [oz_av] 3910 [oz_av] RADHA ([facility]) Diastolic blood pressure 72 mm[Hg] 72 mm[Hg] RADHA ([facility]) Body height 66 [in_i] 66 [in_i] RADHA ([facility]) Body mass index (BMI) [Ratio] 39.4 kg/m2 39.4 k g/m2 RADHA ([facility]) Systolic blood pressure 107 mm[Hg] 107 mm[Hg] A THENA ([facility]) Body weight 3910 [oz_av] 3910 [oz_av] RADHA ([facility]) Diastolic blood pressure 72 mm[Hg] 72 mm[Hg] RADHA ([facility]) Body height 66 [in_i] 66 [in_i] RADHA ([facility]) Body mass index (BMI) [Ratio] 39.4 kg/m2 39.4 k g/m2 RADHA ([facility]) Systolic blood pressure 107 mm[Hg] 107 mm[Hg] A THENA ([facility]) Body weight 3910 [oz_av] 3910 [oz_av] RADHA ([facility]) Diastolic blood pressure 72 mm[Hg] 72 mm[Hg] RADHA ([facility]) Body height 66 [in_i] 66 [in_i] RADHA ([facility]) Body mass index (BMI) [Ratio] 39.4 kg/m2 39.4 k g/m2 RADHA ([facility]) Systolic blood pressure 107 mm[Hg] 107 mm[Hg] A THENA ([facility]) Body weight 3910 [oz_av] 3910 [oz_av] RADHA ([facility]) Diastolic blood pressure 72 mm[Hg] 72 mm[Hg] RADHA ([facility]) Body height 66 [in_i] 66 [in_i] RADHA ([facility]) Body mass index (BMI) [Ratio] 39.4 kg/m2 39.4 k g/m2 RADHA ([facility]) Systolic blood pressure 107 mm[Hg] 107 mm[Hg] A THENA ([facility]) Body weight 3910 [oz_av] 3910 [oz_av] RADHA ([facility]) Diastolic blood pressure 72 mm[Hg] 72 mm[Hg] RADHA ([facility]) Body height 66 [in_i] 66 [in_i] RADHA ([facility]) Body mass index (BMI) [Ratio] 39.4 kg/m2 39.4 k g/m2 RADHA ([facility]) Systolic blood pressure 107 mm[Hg] 107 mm[Hg] A THENA ([facility]) Body weight 3910 [oz_av] 3910 [oz_av] RADHA ([facility]) Body height 65 [in_i] 65 [in_i] MEDENT ([facility] 5'5" Body weight 230.00 [lb_av] 230.00 [lb_av] MEDEN T ([facility] ) Body mass index (BMI) [Ratio] 38.3 kg/m2 38.3 k g/m2 MEDENT ([facility] ) Systolic blood pressure 110 mm[Hg] 110 mm[Hg] M EDENT ([facility] Diastolic blood pressure 80 mm[Hg] 80 mm[Hg] MEDENT ([facility] Heart rate 88 /min 88 /min MEDENT ([facility]) Respiratory rate 20 /min 20 /min MEDENT ( [facility] ) Patient Treatment Plan of Care Planned Activity Planned Date Details Description Data Source (s) pregabalin 75 MG Oral Capsule 12/11/2020 12:00:00 AM EDT RADHA ([facility]) pregabalin 50 MG Oral Capsule RADHA ([facility]) Metformin hydrochloride 500 MG Oral Tablet RADHA ([facility]) Ibuprofen 800 MG Oral Tablet RADHA ([facility]) gabapentin 800 MG Oral Tablet RADHA ([facility]) gabapentin 400 MG Oral Capsule RADHA ([facility]) duloxetine 20 MG Delayed Release Oral Capsule RADHA ([facility]) Cyclobenzaprine hydrochloride 5 MG Oral Tablet RADHA ([facility]) pregabalin 50 MG Oral Capsule RADHA ([facility]) Metformin hydrochloride 500 MG Oral Tablet RADHA ([facility]) Ibuprofen 800 MG Oral Tablet RADHA ([facility]) gabapentin 800 MG Oral Tablet RADHA ([facility]) gabapentin 400 MG Oral Capsule RADHA ([facility]) duloxetine 20 MG Delayed Release Oral Capsule RADHA ([facility]) Cyclobenzaprine hydrochloride 5 MG Oral Tablet RADHA ([facility]) Metformin hydrochloride 500 MG Oral Tablet RADHA ([facility]) Ibuprofen 800 MG Oral Tablet RADHA ([facility]) gabapentin 800 MG Oral Tablet RADHA ([facility]) gabapentin 400 MG Oral Capsule RADHA ([facility]) duloxetine 20 MG Delayed Release Oral Capsule RADHA ([facility]) Cyclobenzaprine hydrochloride 5 MG Oral Tablet RADHA ([facility]) pregabalin 50 MG Oral Capsule RADHA ([facility]) Metformin hydrochloride 500 MG Oral Tablet RADHA ([facility]) Ibuprofen 800 MG Oral Tablet RADHA ([facility]) gabapentin 800 MG Oral Tablet RADHA ([facility]) gabapentin 400 MG Oral Capsule RADHA ([facility]) duloxetine 20 MG Delayed Release Oral Capsule RADHA ([facility]) Cyclobenzaprine hydrochloride 5 MG Oral Tablet RADHA ([facility]) pregabalin 50 MG Oral Capsule RADHA ([facility]) 24 HR Nicotine 0.875 MG/HR Transdermal Patch RADHA ([facility]) Metformin hydrochloride 500 MG Oral Tablet RADHA ([facility]) gabapentin 800 MG Oral Tablet RADHA ([facility]) gabapentin 400 MG Oral Capsule RADHA ([facility]) duloxetine 20 MG Delayed Release Oral Capsule RADHA ([facility]) Cyclobenzaprine hydrochloride 5 MG Oral Tablet RADHA ([facility]) pregabalin 50 MG Oral Capsule RADHA ([facility]) Metformin hydrochloride 500 MG Oral Tablet RADHA ([facility]) Ibuprofen 800 MG Oral Tablet RADHA ([facility]) gabapentin 800 MG Oral Tablet RADHA ([facility]) gabapentin 400 MG Oral Capsule RADHA ([facility]) duloxetine 20 MG Delayed Release Oral Capsule RADHA ([facility]) Cyclobenzaprine hydrochloride 5 MG Oral Tablet RADHA ([facility]) pregabalin 50 MG Oral Capsule RADHA ([facility]) Metformin hydrochloride 500 MG Oral Tablet RADHA ([facility]) Ibuprofen 800 MG Oral Tablet RADHA ([facility]) gabapentin 800 MG Oral Tablet RADHA ([facility]) gabapentin 400 MG Oral Capsule RADHA ([facility]) duloxetine 20 MG Delayed Release Oral Capsule RADHA ([facility]) Cyclobenzaprine hydrochloride 5 MG Oral Tablet RADHA ([facility]) pregabalin 50 MG Oral Capsule RADHA ([facility]) Metformin hydrochloride 500 MG Oral Tablet RADHA ([facility]) gabapentin 800 MG Oral Tablet RADHA ([facility]) gabapentin 400 MG Oral Capsule RADHA ([facility]) duloxetine 20 MG Delayed Release Oral Capsule RADHA ([facility]) Cyclobenzaprine hydrochloride 5 MG Oral Tablet RADHA ([facility]) pregabalin 50 MG Oral Capsule RADHA ([facility]) Metformin hydrochloride 500 MG Oral Tablet RADHA ([facility]) gabapentin 800 MG Oral Tablet RADHA ([facility]) gabapentin 400 MG Oral Capsule RADHA ([facility]) duloxetine 20 MG Delayed Release Oral Capsule RADHA ([facility]) Cyclobenzaprine hydrochloride 5 MG Oral Tablet RADHA ([facility]) pregabalin 50 MG Oral Capsule RADHA ([facility]) Metformin hydrochloride 500 MG Oral Tablet RADHA ([facility]) gabapentin 800 MG Oral Tablet RADHA ([facility]) gabapentin 400 MG Oral Capsule RADHA ([facility]) duloxetine 20 MG Delayed Release Oral Capsule RADHA ([facility]) Cyclobenzaprine hydrochloride 5 MG Oral Tablet RADHA ([facility]) pregabalin 50 MG Oral Capsule RADHA ([facility]) Metformin hydrochloride 500 MG Oral Tablet RADAH ([facility]) gabapentin 800 MG Oral Tablet RADHA ([facility]) gabapentin 400 MG Oral Capsule RADHA ([facility]) duloxetine 20 MG Delayed Release Oral Capsule RADHA ([facility]) Cyclobenzaprine hydrochloride 5 MG Oral Tablet RADHA ([facility]) pregabalin 50 MG Oral Capsule [facility] ([facility]) Metformin hydrochloride 500 MG Oral Tablet [facility] ([facility]) gabapentin 800 MG Oral Tablet [facility] ([facility]) gabapentin 400 MG Oral Capsule [facility] ([facility]) duloxetine 20 MG Delayed Release Oral Capsule [facility] ([facility]) Cyclobenzaprine hydrochloride 5 MG Oral Tablet [facility] ([facility]) pregabalin 50 MG Oral Capsule [facility] ([facility]) Metformin hydrochloride 500 MG Oral Tablet [facility] ([facility]) gabapentin 800 MG Oral Tablet [facility] ([facility]) gabapentin 400 MG Oral Capsule [facility] ([facility]) duloxetine 20 MG Delayed Release Oral Capsule [facility] ([facility] Cyclobenzaprine hydrochloride 5 MG Oral Tablet [facility] ([facility]) pregabalin 50 MG Oral Capsule [facility] ([facility]) Ibuprofen 800 MG Oral Tablet [facility] ([facility]) gabapentin 800 MG Oral Tablet [facility] ([facility]) gabapentin 400 MG Oral Capsule [facility] ([facility]) duloxetine 20 MG Delayed Release Oral Capsule [facility] ([facility]) Cyclobenzaprine hydrochloride 5 MG Oral Tablet [facility] ([facility]) pregabalin 50 MG Oral Capsule [facility] ([facility]) Metformin hydrochloride 500 MG Oral Tablet [facility] ([facility]) gabapentin 800 MG Oral Tablet [facility] ([facility]) gabapentin 400 MG Oral Capsule [facility] ([facility]) duloxetine 20 MG Delayed Release Oral Capsule [facility] ([facility]) Cyclobenzaprine hydrochloride 5 MG Oral Tablet [facility] ([facility]) pregabalin 50 MG Oral Capsule [facility] ([facility]) Ibuprofen 800 MG Oral Tablet [facility] ([facility]) gabapentin 800 MG Oral Tablet [facility] ([facility]) gabapentin 400 MG Oral Capsule [facility] ([facility]) pregabalin 50 MG Oral Capsule [facility] ([facility]) Ibuprofen 800 MG Oral Tablet [facility] ([facility]) gabapentin 800 MG Oral Tablet [facility] ([facility]) gabapentin 400 MG Oral Capsule [facility] ([facility]) duloxetine 20 MG Delayed Release Oral Capsule [facility] ([facility]) Cyclobenzaprine hydrochloride 5 MG Oral Tablet [facility] ([facility]) pregabalin 50 MG Oral Capsule [facility] ([facility]) Ibuprofen 800 MG Oral Tablet [facility] ([facility]) gabapentin 800 MG Oral Tablet [facility] ([facility]) gabapentin 400 MG Oral Capsule [facility] ([facility]) Cyclobenzaprine hydrochloride 5 MG Oral Tablet [facility] ([facility]) pregabalin 50 MG Oral Capsule [facility] ([facility]) Ibuprofen 800 MG Oral Tablet [facility] ([facility]) gabapentin 800 MG Oral Tablet [facility] ([facility]) gabapentin 400 MG Oral Capsule [facility] ([facility]) Cyclobenzaprine hydrochloride 5 MG Oral Tablet [facility] ([facility]) pregabalin 50 MG Oral Capsule [facility] ([facility]) Ibuprofen 800 MG Oral Tablet [facility] ([facility]) gabapentin 800 MG Oral Tablet [facility] ([facility]) gabapentin 400 MG Oral Capsule [facility] ([facility]) Cyclobenzaprine hydrochloride 5 MG Oral Tablet [facility] ([facility]) pregabalin 50 MG Oral Capsule [facility] ([facility])
[2021-03-01] MEDS ORDERED: LIDOCAINE 5% (LIDODERM) PATCH TD ONE (20:45)
[2021-03-01] MEDS ORDERED: diazePAM 10 MG TAB PO ONE (20:45)
[2021-03-01] MEDS ORDERED: KETOROLAC 60MG 2ML VIAL IM ONE (20:45)
[2021-03-01] MEDS ORDERED: ASPE4PAD TOP (20:51)
[2021-03-01] MEDS ORDERED: METH-1165 PO (20:51)
[2021-03-01] MEDS ORDERED: **NOTE PATIENT COMMENT** MISC XX SCH (21:00)
[2021-03-01 21:25] VITALS: BP 129/64
== END 2021-03-01 21:25 | disposition home or self-care (01) ==
LOC: M ED 17:47
DX: G89.29 Other chronic pain (principal); M54.50 Low back pain, unspecified; M62.830 Muscle spasm of back; I25.2 Old myocardial infarction; E78.5 Hyperlipidemia, unspecified; Z79.899 Other long term (current) drug therapy; Z79.82 Long term (current) use of aspirin; Z88.0 Allergy status to penicillin; Z91.040 Latex allergy status; F17.210 Nicotine dependence, cigarettes, uncomplicated
CPT/HCPCS: 96372; 99283; J1885

== ENCOUNTER → 2021-03-01 | Outpatient (CLI) | payer OTHER ==
[~2021-03-01] MED LIST changes: +ASPE4PAD TOP; -CLIN150C15 PO; +CLIN150C17 PO; +ISOVUE-300 61% 50ML VIAL As Ordered ONE; +LIDOCAINE 1% MDV 20ML VIAL As Ordered ONE; +METH-1165 PO; +methylPREDNISolone SUSP 40MG/ML 1ML VIAL (DEPO MEDROL) As Ordered ONE
--- NOTE | 2021-03-01 16:57 | REP ---
INDICATION: TROCHANTERIC BURSITIS, RIGHT HIP. COMPARISON: None TECHNIQUE: The procedure was performed by ZAHRA Bowers, under the direct supervision of Dr. Branch. The benefits and risks of the procedure were explained to the patient, and an informed consent was obtained. Directly prior to the start of the procedure, a formal time-out was completed in the procedure room. The right hip joint space was localized using fluoroscopic guidance. The skin was prepped and draped in a sterile fashion. Approximately 5 mL of 1% Lidocaine 10 mg/ml was used as a local anesthetic. Using fluoroscopic guidance, a #22 gauge spinal needle was inserted and advanced into the right hip joint space. Approximately 2 mL of Isovue 300 was injected to verify placement. Seven mL of a solution containing 5 mL 1% lidocaine 10 mg/ml and 2 mL Depo-Medrol 40 mg/mL was injected into the joint space. The needle was removed and hemostasis was achieved. FINDINGS: The patient tolerated the procedure well and there were no immediate complications. IMPRESSION: 1. Technically successful right hip arthrogram. 0.1 minutes of fluoroscopy time was utilized for this procedure. Some fluoroscopic images are performed with last image hold technology. These images require no additional radiation. <Electronically signed by Margie Brandon > 03/01/21 1501 <Electronically signed by Derrick Branch > 03/01/21 3023
== END ==
LOC: M RADPRO 10:33
PROVIDERS: ATTEND Physician Assistant
DX: M70.61 Trochanteric bursitis, right hip (principal)
CPT/HCPCS: 20610; 77002; J1030; Q9967

== ENCOUNTER → 2021-05-08 | Outpatient (CLI) | payer OTHER ==
[~2021-05-08] MED LIST changes: +ASPE4PAD TOP; +METH-1165 PO
--- NOTE | 2021-05-09 08:51 | REP ---
INDICATION: RT HIP TROCHANTERIC BURSITIS ? NECROSIS. COMPARISON: None. TECHNIQUE: Axial T1 and T2. Sagittal T2. Coronal T1, fat suppressed proton density, fat suppressed T2 and STIR. FINDINGS: The femoral heads are spherical in shape and symmetric in appearance. No abnormal focal chondral or subchondral signal seen arising from the femoral or acetabular component of either hip. The hip joint spaces are symmetric and relatively well maintained. There is no hip joint effusion. No abnormal signal is seen in the trochanteric tendono bursal region. The signal and morphology throughout the imaged musculature is within normal limits. There is no evidence of a mass or mass effect. The cortical marrow signal seen throughout the imaged osseous pelvis is within normal limits. There is irregularity and T2 hyper signal change seen in the anterior superior labrum. IMPRESSION: 1. There is no evidence of tendono bursitis. 2. There are some labral signal changes suspect for a tear. This could be better evaluated with hip MRI arthrography if clinically relevant. <Electronically signed by Alonso Denton > 05/09/21 [id number]
== END ==
LOC: M RAD 15:49
PROVIDERS: ATTEND Physician Assistant
DX: M70.61 Trochanteric bursitis, right hip (principal)

== ENCOUNTER 2021-06-02 12:37 | Emergency (ER) | payer OTHER ==
[~2021-06-02] VITALS: Ht 167.6 cm; Wt 120.0 kg
[2021-06-02] MEDS ORDERED: BUPR150T12 (12:48)
[2021-06-02] MEDS ORDERED: NS 1,000 ML IV SCH (13:05)
[2021-06-02] MEDS ORDERED: PANTOPRAZOLE 40MG VIAL (C9113 PER 1) IV ONE (13:20)
[2021-06-02 13:30] LABS: BASO # 0.1 10^3/uL (0.0-0.2); BASO % 0.4 % (0.0-1.0); EOS # 0.2 10^3/uL (0.0-0.5); EOS % 1.4 % (0.0-3.0); HEMATOCRIT 43.4 % (36.0-47.0); HEMOGLOBIN 14.5 g/dl (12.0-15.5); LYMPH # 2.9 10^3/uL (1.5-5.0); LYMPH % 25.1 % (24.0-44.0); MEAN CORPUSCULAR HEMOGLOBIN 31.6 pg (27.0-33.0); MEAN CORPUSCULAR HGB CONC 33.4 g/dl (32.0-36.5); MEAN CORPUSCULAR VOLUME 94.6 fl (80.0-96.0); MONO # 0.6 10^3/uL (0.0-0.8); MONO % 5.2 % (2.0-8.0); NEUTROPHILS # 7.7 10^3/uL (1.5-8.5); NEUTROPHILS % 67.5 % (36.0-66.0); PLATELET COUNT, AUTOMATED 390 10^3/uL (150-450); RED BLOOD COUNT 4.59 10^6/uL (4.00-5.40); WHITE BLOOD COUNT 11.4 10^3/uL (4.0-10.0)
[2021-06-02 13:48] LABS: INR 0.95; PROTHROMBIN TIME 13.1 SECONDS (12.7-14.5)
[2021-06-02 13:49] LABS: PARTIAL THROMBOPLASTIN TIME 25.2 SECONDS (25.9-37.0)
[2021-06-02 13:50] LABS: ALBUMIN 3.3 GM/DL (3.2-5.2); ALT/SGPT 28 U/L (12-78); BILIRUBIN,DIRECT < 0.1 MG/DL (0.0-0.2); BILIRUBIN,TOTAL 0.3 MG/DL (0.2-1.0); BLOOD UREA NITROGEN 9 MG/DL (7-18); CALCIUM LEVEL 8.6 MG/DL (8.5-10.1); CARBON DIOXIDE LEVEL 24 MEQ/L (21-32); CHLORIDE LEVEL 106 MEQ/L (98-107); CREATININE FOR GFR 0.87 MG/DL (0.55-1.30); GLOMERULAR FILTRATION RATE > 60.0 (>58); GLUCOSE, FASTING 141 MG/DL (70-100); LIPASE 60 U/L (73-393); POTASSIUM SERUM 3.7 MEQ/L (3.5-5.1); SODIUM LEVEL 137 MEQ/L (136-145); TOTAL PROTEIN 7.1 GM/DL (6.4-8.2)
[2021-06-02 14:01] VITALS: BP 112/65
== END 2021-06-02 14:34 | disposition home or self-care (01) ==
LOC: M ED 12:37
DX: K62.5 Hemorrhage of anus and rectum (principal); I25.2 Old myocardial infarction; I10 Essential (primary) hypertension; F17.200 Nicotine dependence, unspecified, uncomplicated; Z88.0 Allergy status to penicillin; Z91.040 Latex allergy status; Z79.82 Long term (current) use of aspirin; Z79.899 Other long term (current) drug therapy
CPT/HCPCS: 80048; 80076; 83690; 85025; 85610; 85730; 86850; 86900; 86901; 93041; 96361; 96374; 99284; C9113

== ENCOUNTER → 2021-07-19 | Outpatient (CLI) | payer OTHER ==
[~2021-07-19] MED LIST changes: +BUPR150T12 PO
== END ==
LOC: M LABSMTC 09:14
PROVIDERS: ATTEND Anesthesiology
DX: Z01.812 Encounter for preprocedural laboratory examination (principal); Z20.822 Contact with and (suspected) exposure to COVID-19

== ENCOUNTER → 2021-07-31 | Outpatient (REF) | LOC: M PLAIMG 12:53 | PROVIDERS: ATTEND Internal Medicine | DX: Z00.00 Encounter for general adult medical examination without abnormal findings (principal) ==

== ENCOUNTER → 2021-09-05 | Outpatient (CLI) | payer OTHER | LOC: M WHC 12:20 | PROVIDERS: ATTEND Family Medicine Addiction Medicine | DX: R92.8 Other abnormal and inconclusive findings on diagnostic imaging of breast (principal) | CPT/HCPCS: 77066; G0279 ==

== ENCOUNTER → 2021-10-04 | Outpatient (CLI) | payer OTHER ==
[~2021-10-04] MED LIST changes: +ISOVUE-300 61% 50ML VIAL As Ordered ONE; +LIDOCAINE 1% MDV 20ML VIAL As Ordered ONE; +methylPREDNISolone SUSP 40MG/ML 1ML VIAL (DEPO MEDROL) As Ordered ONE
== END ==
LOC: M RADPRO 13:13
PROVIDERS: ATTEND Physician Assistant
DX: M16.11 Unilateral primary osteoarthritis, right hip (principal)
CPT/HCPCS: 20610; 77002; J1030; Q9967

== ENCOUNTER 2021-11-24 16:56 | Emergency (ER) | payer OTHER ==
[~2021-11-24 16:56] MED LIST changes: -ISOVUE-300 61% 50ML VIAL As Ordered ONE; -LIDOCAINE 1% MDV 20ML VIAL As Ordered ONE; -methylPREDNISolone SUSP 40MG/ML 1ML VIAL (DEPO MEDROL) As Ordered ONE
[2021-11-24 17:55] LABS: BASO # 0.1 10^3/uL (0.0-0.2); BASO % 0.5 % (0.0-1.0); EOS # 0.2 10^3/uL (0.0-0.5); EOS % 1.4 % (0.0-3.0); HEMATOCRIT 42.6 % (36.0-47.0); HEMOGLOBIN 14.4 g/dl (12.0-15.5); LYMPH # 3.6 10^3/uL (1.5-5.0); LYMPH % 27.4 % (24.0-44.0); MEAN CORPUSCULAR HEMOGLOBIN 32.2 pg (27.0-33.0); MEAN CORPUSCULAR HGB CONC 33.8 g/dl (32.0-36.5); MEAN CORPUSCULAR VOLUME 95.3 fl (80.0-96.0); MONO % 7.3 % (2.0-8.0); NEUTROPHILS # 8.3 10^3/uL (1.5-8.5); NEUTROPHILS % 62.9 % (36.0-66.0); PLATELET COUNT, AUTOMATED 394 10^3/uL (150-450); RED BLOOD COUNT 4.47 10^6/uL (4.00-5.40); WHITE BLOOD COUNT 13.2 10^3/uL (4.0-10.0)
[2021-11-24 18:13] LABS: CK-MB VALUE MASS < 1.0 NG/ML (<3.6); CPK CREATINE PHOSPHOKINASE 135 U/L (26-192); MB/CK RELATIVE INDEX 0.74 (< OR =4)
[2021-11-24 18:16] LABS: INR 0.94; PARTIAL THROMBOPLASTIN TIME 27.6 SECONDS (25.9-37.0)
[2021-11-24 18:26] LABS: ALBUMIN 3.2 GM/DL (3.2-5.2); ALT/SGPT 22 U/L (12-78); BILIRUBIN,DIRECT < 0.1 MG/DL (0.0-0.2); BILIRUBIN,TOTAL 0.3 MG/DL (0.2-1.0); BLOOD UREA NITROGEN 11 MG/DL (7-18); CALCIUM LEVEL 8.5 MG/DL (8.5-10.1); CARBON DIOXIDE LEVEL 24 MEQ/L (21-32); CHLORIDE LEVEL 110 MEQ/L (98-107); CREATININE FOR GFR 0.78 MG/DL (0.55-1.30); GLOMERULAR FILTRATION RATE > 60.0 (>58); GLUCOSE, FASTING 105 MG/DL (70-100); LIPASE 87 U/L (73-393); NT-PRO BNP 45 PG/ML (<125); POTASSIUM SERUM 3.9 MEQ/L (3.5-5.1); SODIUM LEVEL 142 MEQ/L (136-145); TOTAL PROTEIN 6.8 GM/DL (6.4-8.2)
[2021-11-24] MEDS ORDERED: SUCR1TA PO (18:53)
[2021-11-24] MEDS ORDERED: OMEP40CA4 PO (18:54)
[2021-11-24 19:19] LABS: CK-MB VALUE MASS < 1.0 NG/ML (<3.6); CPK CREATINE PHOSPHOKINASE 163 U/L (26-192); MB/CK RELATIVE INDEX 0.61 (< OR =4)
[2021-11-24 20:15] VITALS: BP 130/25
== END 2021-11-24 20:44 | disposition home or self-care (01) ==
LOC: M ED 16:56
DX: R07.89 Other chest pain (principal); I25.10 Atherosclerotic heart disease of native coronary artery without angina pectoris; I10 Essential (primary) hypertension; M79.7 Fibromyalgia; Z90.49 Acquired absence of other specified parts of digestive tract; Z90.710 Acquired absence of both cervix and uterus; F17.200 Nicotine dependence, unspecified, uncomplicated; Z88.0 Allergy status to penicillin; Z91.040 Latex allergy status; Z79.82 Long term (current) use of aspirin; Z79.899 Other long term (current) drug therapy

== ENCOUNTER → 2022-02-21 | Outpatient (CLI) | payer OTHER ==
[~2022-02-21] MED LIST changes: +ALBU6.7H6 INH; +OMEP40CA4 PO; -PROV108A INH; +SUCR1TA PO
== END ==
LOC: M PLARAD 12:10
PROVIDERS: ATTEND Physician Assistant
DX: M47.896 Other spondylosis, lumbar region (principal); M51.16 Intervertebral disc disorders with radiculopathy, lumbar region

== ENCOUNTER → 2022-03-14 | Outpatient (CLI) | payer OTHER | LOC: M PLAIMG 12:32 | PROVIDERS: ATTEND Physician Assistant | DX: M16.11 Unilateral primary osteoarthritis, right hip (principal) ==

== ENCOUNTER 2022-05-20 04:17 | Emergency (ER) | payer OTHER ==
[~2022-05-20] VITALS: Ht 167.6 cm; Wt 123.4 kg
[2022-05-20 04:20] VITALS: BP 153/94
== END 2022-05-20 04:42 | disposition left against medical advice (07) ==
LOC: M ED 04:17
DX: Z53.21 Procedure and treatment not carried out due to patient leaving prior to being seen by health care provider (principal)

== ENCOUNTER → 2022-06-04 | Outpatient (REF) | payer OTHER ==
[2022-06-04 14:12] LABS: ALBUMIN 3.3 G/DL (3.2-5.2); ALKALINE PHOSPHATASE 125 U/L (46-116); ALT/SGPT 24 U/L (7.0-40); AST/SGOT 19 U/L (<34); BILIRUBIN,TOTAL 0.3 MG/DL (0.3-1.2); BLOOD UREA NITROGEN 10 MG/DL (9-23); CALCIUM LEVEL 8.7 MG/DL (8.5-10.1); CARBON DIOXIDE LEVEL 25 MMOL/L (20-31); CHLORIDE LEVEL 105 MMOL/L (98-107); CHOLESTEROL LEVEL 165 MG/DL (<200); CHOLESTEROL RISK RATIO 3.65 (<5); CREATININE FOR GFR 0.66 MG/DL (0.55-1.30); GLOMERULAR FILTRATION RATE > 60.0 (>58); GLUCOSE, FASTING 119 MG/DL (60-100); HDL CHOLESTEROL 45.1 MG/DL (>40); LDL CHOLESTEROL 76.9 MG/DL (<100); NON-HDL-C 120 MG/DL; POTASSIUM SERUM 4.2 MMOL/L (3.5-5.1); SODIUM LEVEL 138 MMOL/L (136-145); TOTAL PROTEIN 7.1 G/DL (5.7-8.2); TRIGLYCERIDES LEVEL 215 MG/DL (<150)
[2022-06-04 14:16] LABS: THYROID STIMULATING HORMONE 1.423 uIU/ML (0.55-4.78)
== END ==
LOC: M LAB REF 13:11
PROVIDERS: ATTEND Family Medicine Addiction Medicine
DX: I10 Essential (primary) hypertension (principal); G89.4 Chronic pain syndrome; R73.03 Prediabetes

== ENCOUNTER 2022-06-11 07:49 | Emergency (ER) | payer OTHER ==
[~2022-06-11] VITALS: Ht 167.6 cm; Wt 117.3 kg
[2022-06-11] MEDS ORDERED: MIRT-11 (08:06)
[2022-06-11] MEDS ORDERED: PREG75CA2 (08:06)
[2022-06-11] MEDS ORDERED: DULO1CAP6 (08:06)
[2022-06-11] MEDS ORDERED: BUPR300T92 (08:06)
[2022-06-11] MEDS ORDERED: diazePAM 10 MG TAB PO ONE (10:50)
[2022-06-11] MEDS ORDERED: LIDOCAINE 5% (LIDODERM) PATCH TD ONE (10:50)
[2022-06-11] MEDS ORDERED: KETOROLAC 60MG 2ML VIAL IM ONE (10:50)
[2022-06-11 11:34] VITALS: BP 159/79
[2022-06-11] MEDS ORDERED: ASPE4PAD TOP (12:11)
[2022-06-11] MEDS ORDERED: METH-1165 PO (12:11)
== END 2022-06-11 12:29 | disposition home or self-care (01) ==
LOC: EDBD 07:49 → M ED 07:49
DX: M54.17 Radiculopathy, lumbosacral region (principal); M54.41 Lumbago with sciatica, right side; X50.0XXA Overexertion from strenuous movement or load, initial encounter; M51.36 Other intervertebral disc degeneration, lumbar region; Z90.49 Acquired absence of other specified parts of digestive tract; Z90.710 Acquired absence of both cervix and uterus; Z88.0 Allergy status to penicillin; Z91.040 Latex allergy status; Z79.82 Long term (current) use of aspirin; Z79.899 Other long term (current) drug therapy
CPT/HCPCS: 72110; 96372; 99284; J1885

== ENCOUNTER → 2022-09-17 | Outpatient (REF) | payer OTHER ==
[~2022-09-17] MED LIST changes: +BUPR300T92; +DULO1CAP6; +MIRT-11; +PREG75CA2
[2022-09-17 14:11] LABS: ALBUMIN 3.6 G/DL (3.2-5.2); ALKALINE PHOSPHATASE 135 U/L (46-116); ALT/SGPT 33 U/L (7.0-40); AST/SGOT 38 U/L (<34); BILIRUBIN,TOTAL 0.3 MG/DL (0.3-1.2); BLOOD UREA NITROGEN 10 MG/DL (9-23); CALCIUM LEVEL 8.9 MG/DL (8.5-10.1); CARBON DIOXIDE LEVEL 21 MMOL/L (20-31); CHLORIDE LEVEL 107 MMOL/L (98-107); CHOLESTEROL LEVEL 156 MG/DL (<200); CHOLESTEROL RISK RATIO 4.98 (<5); CREATININE FOR GFR 0.58 MG/DL (0.55-1.30); GLOMERULAR FILTRATION RATE > 60.0 (>58); GLUCOSE, FASTING 150 MG/DL (60-100); HDL CHOLESTEROL 31.3 MG/DL (>40); LDL CHOLESTEROL 47.1 MG/DL (<100); NON-HDL-C 124.7 MG/DL; POTASSIUM SERUM 5.2 MMOL/L (3.5-5.1); SODIUM LEVEL 137 MMOL/L (136-145); THYROID STIMULATING HORMONE 1.756 uIU/ML (0.55-4.78); TRIGLYCERIDES LEVEL 388 MG/DL (<150)
== END ==
LOC: M LAB REF 12:13
PROVIDERS: ATTEND Family Medicine Addiction Medicine
DX: R73.03 Prediabetes (principal); I10 Essential (primary) hypertension; G89.4 Chronic pain syndrome

== ENCOUNTER → 2022-09-24 | Outpatient (REF) | payer OTHER ==
[2022-09-24 18:47] LABS: HEMOGLOBIN A1c 5.8 % (4.0-6.0)
[2022-09-24 18:50] LABS: BLOOD UREA NITROGEN 6 MG/DL (9-23); CARBON DIOXIDE LEVEL 24 MMOL/L (20-31); CHLORIDE LEVEL 108 MMOL/L (98-107); CREATININE FOR GFR 0.56 MG/DL (0.55-1.30); GLOMERULAR FILTRATION RATE > 60.0 (>58); GLUCOSE, FASTING 95 MG/DL (60-100); POTASSIUM SERUM 4.7 MMOL/L (3.5-5.1); SODIUM LEVEL 137 MMOL/L (136-145)
== END ==
LOC: M LAB REF 17:54
PROVIDERS: ATTEND Family Medicine Addiction Medicine
DX: E78.5 Hyperlipidemia, unspecified (principal); R73.03 Prediabetes

== ENCOUNTER → 2022-11-12 | Outpatient (CLI) | payer OTHER | LOC: M WHC 13:06 | PROVIDERS: ATTEND Family Medicine Addiction Medicine | DX: N64.52 Nipple discharge (principal) ==

== ENCOUNTER → 2023-02-10 | Outpatient (CLI) | payer OTHER ==
[~2023-02-10] MED LIST changes: -GABA-283; +GABA-284; +ISOVUE-300 61% 100ML VIAL As Ordered ONE; +LIDOCAINE 1% MDV 20ML VIAL As Ordered ONE; -PREG75CA2; +PREG75CA3; +methylPREDNISolone SUSP 40MG/ML 1ML VIAL (DEPO MEDROL) As Ordered ONE
== END ==
LOC: M RAD 13:31
PROVIDERS: ATTEND Physician Assistant
DX: M16.11 Unilateral primary osteoarthritis, right hip (principal)
CPT/HCPCS: 20610; 77002; J1030; Q9967

== ENCOUNTER → 2023-04-03 | Outpatient (REF) | payer OTHER ==
[~2023-04-03] MED LIST changes: -ISOVUE-300 61% 100ML VIAL As Ordered ONE; -LIDOCAINE 1% MDV 20ML VIAL As Ordered ONE; -methylPREDNISolone SUSP 40MG/ML 1ML VIAL (DEPO MEDROL) As Ordered ONE
[2023-04-03 14:39] LABS: HEMOGLOBIN A1c 5.9 % (4.0-6.0)
== END ==
LOC: M LAB REF 11:43
PROVIDERS: ATTEND Family Medicine Addiction Medicine
DX: R73.03 Prediabetes (principal)

== ENCOUNTER → 2023-06-04 | Outpatient (CLI) | payer OTHER | LOC: M PLARAD 09:01 | PROVIDERS: ATTEND Physician Assistant | DX: M17.12 Unilateral primary osteoarthritis, left knee (principal); M65.862 Other synovitis and tenosynovitis, left lower leg ==

== ENCOUNTER → 2023-06-09 | Outpatient (CLI) | payer OTHER | LOC: M PLAIMG 13:21 | PROVIDERS: ATTEND Family Medicine Addiction Medicine | DX: M25.512 Pain in left shoulder (principal) ==

== ENCOUNTER → 2023-07-17 | Outpatient (CLI) | payer OTHER | LOC: M PLARAD 13:06 | PROVIDERS: ATTEND Family Medicine Addiction Medicine | DX: M75.42 Impingement syndrome of left shoulder (principal); S43.432A Superior glenoid labrum lesion of left shoulder, initial encounter; Y93.9 Activity, unspecified; Y92.9 Unspecified place or not applicable ==

== ENCOUNTER → 2023-08-27 | Outpatient (CLI) | payer OTHER ==
[2023-08-27 13:40] LABS: ALBUMIN 3.6 G/DL (3.2-5.2); ALKALINE PHOSPHATASE 139 U/L (46-116); ALT/SGPT 19 U/L (7.0-40); AST/SGOT 11 U/L (<34); BILIRUBIN,TOTAL 0.4 MG/DL (0.3-1.2); BLOOD UREA NITROGEN 10 MG/DL (9-23); CALCIUM LEVEL 9.3 MG/DL (8.5-10.1); CARBON DIOXIDE LEVEL 27 MMOL/L (20-31); CHLORIDE LEVEL 105 MMOL/L (98-107); CHOLESTEROL LEVEL 151 MG/DL (<200); CHOLESTEROL RISK RATIO 4.64 (<5); CREATININE FOR GFR 0.59 MG/DL (0.55-1.30); GLOMERULAR FILTRATION RATE > 60.0 (>58); GLUCOSE, FASTING 102 MG/DL (60-100); HDL CHOLESTEROL 32.5 MG/DL (>40); LDL CHOLESTEROL 66.1 MG/DL (<100); NON-HDL-C 118.5 MG/DL; SODIUM LEVEL 139 MMOL/L (136-145); TOTAL PROTEIN 7.1 G/DL (5.7-8.2); TRIGLYCERIDES LEVEL 262 MG/DL (<150)
[2023-08-27 13:43] LABS: THYROID STIMULATING HORMONE 1.449 uIU/ML (0.55-4.78)
[2023-08-27 13:49] LABS: HEMOGLOBIN A1c 5.7 % (4.0-6.0)
== END ==
LOC: M PLALAB 09:56
PROVIDERS: ATTEND Family Medicine Addiction Medicine
DX: R73.9 Hyperglycemia, unspecified (principal)

== ENCOUNTER → 2023-10-21 | Outpatient (REF) ==
[~2023-10-21] MED LIST changes: +BUPR-597; -BUPR300T92
== END ==
LOC: M PLAIMG 14:40
PROVIDERS: ATTEND Internal Medicine
DX: R52 Pain, unspecified (principal)

== ENCOUNTER 2023-10-26 10:05 | Emergency (ER) | payer OTHER ==
[~2023-10-26] VITALS: Ht 167.6 cm; Wt 125.6 kg
[2023-10-26] MEDS ORDERED: NAPR-837 PO (13:47)
[2023-10-26] MEDS ORDERED: SOMA350T PO (13:47)
[2023-10-26 13:56] VITALS: BP 139/87; TEMP 96.1; O2SAT 92
== END 2023-10-26 13:55 | disposition home or self-care (01) ==
LOC: M ED 10:05
DX: M79.622 Pain in left upper arm (principal); I10 Essential (primary) hypertension; F17.210 Nicotine dependence, cigarettes, uncomplicated; Z88.0 Allergy status to penicillin; Z91.040 Latex allergy status; Z79.1 Long term (current) use of non-steroidal anti-inflammatories (NSAID); Z79.899 Other long term (current) drug therapy

== ENCOUNTER → 2024-02-25 | Outpatient (CLI) | payer OTHER ==
[~2024-02-25] MED LIST changes: +GABA-1172 PO; +GABA-1635; -GABA-282 PO; -GABA800T4; +NAPR-837 PO; +SOMA350T PO
[2024-02-25 13:49] LABS: ALBUMIN 3.1 G/DL (3.2-5.2); ALKALINE PHOSPHATASE 148 U/L (46-116); ALT/SGPT 11 U/L (7.0-40); AST/SGOT 12 U/L (<34); BILIRUBIN,TOTAL 0.4 MG/DL (0.3-1.2); BLOOD UREA NITROGEN 9 MG/DL (9-23); CALCIUM LEVEL 9.3 MG/DL (8.5-10.1); CARBON DIOXIDE LEVEL 28 MMOL/L (20-31); CHLORIDE LEVEL 106 MMOL/L (98-107); CHOLESTEROL LEVEL 152 MG/DL (<200); CREATININE FOR GFR 0.61 MG/DL (0.55-1.30); GLOMERULAR FILTRATION RATE > 60.0 (>58); GLUCOSE, FASTING 100 MG/DL (60-100); HDL CHOLESTEROL 29.2 MG/DL (>40); LDL CHOLESTEROL 76.4 MG/DL (<100); NON-HDL-C 122.8 MG/DL; POTASSIUM SERUM 4.4 MMOL/L (3.5-5.1); SODIUM LEVEL 141 MMOL/L (136-145); TOTAL PROTEIN 6.7 G/DL (5.7-8.2); TRIGLYCERIDES LEVEL 232 MG/DL (<150)
[2024-02-25 13:50] LABS: THYROID STIMULATING HORMONE 1.319 uIU/ML (0.55-4.78)
== END ==
LOC: M PLALAB 09:54
PROVIDERS: ATTEND Family Medicine Addiction Medicine
DX: I10 Essential (primary) hypertension (principal); G89.4 Chronic pain syndrome

== ENCOUNTER → 2024-04-15 | Outpatient (CLI) | payer OTHER | LOC: M PLAIMG 08:39 | PROVIDERS: ATTEND Physician Assistant | DX: M75.42 Impingement syndrome of left shoulder (principal) ==

== ENCOUNTER 2024-05-06 20:10 | Emergency (ER) | payer OTHER ==
[~2024-05-06] VITALS: Ht 167.6 cm; Wt 130.9 kg
[~2024-05-06 20:10] MED LIST changes: -DULO1CAP6; +DULO1CAP6 PO; -MIRT-11; +MIRT-11 PO; -PREG75CA3; +PREG75CA3 PO
[2024-05-06] MEDS: ACETAMINOPHEN 500 MG TAB PO ONE (20:52)
[2024-05-06 21:21] LABS: BASO # 0.1 10^3/uL (0.0-0.2); BASO % 0.3 % (0.0-1.0); EOS # 0.2 10^3/uL (0.0-0.5); EOS % 1.2 % (0.0-3.0); HEMATOCRIT 42.2 % (36.0-47.0); HEMOGLOBIN 14.1 g/dl (12.0-15.5); LYMPH # 2.4 10^3/uL (1.5-5.0); LYMPH % 13.2 % (24.0-44.0); MEAN CORPUSCULAR HEMOGLOBIN 32.7 pg (27.0-33.0); MEAN CORPUSCULAR HGB CONC 33.4 g/dl (32.0-36.5); MEAN CORPUSCULAR VOLUME 97.9 fl (80.0-96.0); MONO # 1.2 10^3/uL (0.0-0.8); MONO % 6.7 % (2.0-8.0); NEUTROPHILS # 13.9 10^3/uL (1.5-8.5); NEUTROPHILS % 77.9 % (36.0-66.0); PLATELET COUNT, AUTOMATED 379 10^3/uL (150-450); RED BLOOD COUNT 4.31 10^6/uL (4.00-5.40); WHITE BLOOD COUNT 17.9 10^3/uL (4.0-10.0)
[2024-05-06 21:46] LABS: BLOOD UREA NITROGEN 9 MG/DL (9-23); CALCIUM LEVEL 8.5 MG/DL (8.5-10.1); CARBON DIOXIDE LEVEL 27 MMOL/L (20-31); CHLORIDE LEVEL 104 MMOL/L (98-107); CREATININE FOR GFR 0.58 MG/DL (0.55-1.30); GLOMERULAR FILTRATION RATE > 60.0 (>51); GLUCOSE, FASTING 115 MG/DL (60-100); POTASSIUM SERUM 3.7 MMOL/L (3.5-5.1); SODIUM LEVEL 138 MMOL/L (136-145)
[2024-05-07 00:30] VITALS: BP 133/74
[2024-05-07] MEDS ORDERED: BUPR-332 PO (01:46)
[2024-05-07] MEDS ORDERED: ASPI81CH33 PO (01:46)
[2024-05-07] MEDS ORDERED: DULO30CA9 PO (01:46)
[2024-05-07] MEDS: DOXYCYCLINE HYCLATE 100 MG in DEXTROSE 5% (D5W) MINI-BAG PLU 100 ML IV ONE (01:50)
[2024-05-07] MEDS ORDERED: HOME MED LIST COMPLETE! XX SCH (01:50)
[2024-05-07] MEDS ORDERED: BACT800T5 PO (02:42)
[2024-05-07 03:00] VITALS: TEMP 97.1; O2SAT 95
== END 2024-05-07 03:20 | disposition home or self-care (01) ==
LOC: M ED 20:10
DX: N61.1 Abscess of the breast and nipple (principal); L03.313 Cellulitis of chest wall; I25.119 Atherosclerotic heart disease of native coronary artery with unspecified angina pectoris; K21.9 Gastro-esophageal reflux disease without esophagitis; E78.5 Hyperlipidemia, unspecified; F41.9 Anxiety disorder, unspecified; F32.A Depression, unspecified; Z88.0 Allergy status to penicillin; Z91.040 Latex allergy status; Z79.1 Long term (current) use of non-steroidal anti-inflammatories (NSAID); Z79.899 Other long term (current) drug therapy

== ENCOUNTER → 2024-06-03 | Outpatient (CLI) | payer OTHER ==
[~2024-06-03] MED LIST changes: +ASPI81CH33 PO; +BACT800T5 PO; +BUPR-332 PO; +DULO30CA9 PO; +ISOVUE-300 61% 100ML VIAL As Ordered ONE; +LIDOCAINE 1% MDV 20ML VIAL As Ordered ONE; +methylPREDNISolone SUSP 40MG/ML 1ML VIAL (DEPO MEDROL) As Ordered ONE
== END ==
LOC: M RAD 14:48
PROVIDERS: ATTEND Physician Assistant
DX: S43.432A Superior glenoid labrum lesion of left shoulder, initial encounter (principal); X58.XXXA Exposure to other specified factors, initial encounter; Y92.9 Unspecified place or not applicable
CPT/HCPCS: 20610; 77002; J1010; Q9967

== ENCOUNTER 2024-06-17 13:00 | Emergency (ER) | payer OTHER ==
[~2024-06-17] VITALS: Ht 167.6 cm; Wt 126.9 kg
[~2024-06-17 13:00] MED LIST changes: -ISOVUE-300 61% 100ML VIAL As Ordered ONE; -LIDOCAINE 1% MDV 20ML VIAL As Ordered ONE; -methylPREDNISolone SUSP 40MG/ML 1ML VIAL (DEPO MEDROL) As Ordered ONE
[2024-06-17 15:18] LABS: BASO # 0.1 10^3/uL (0.0-0.2); BASO % 0.3 % (0.0-1.0); EOS # 0.2 10^3/uL (0.0-0.5); HEMATOCRIT 49.7 % (36.0-47.0); HEMOGLOBIN 16.2 g/dl (12.0-15.5); LYMPH # 1.6 10^3/uL (1.5-5.0); LYMPH % 8.9 % (24.0-44.0); MEAN CORPUSCULAR HEMOGLOBIN 32.3 pg (27.0-33.0); MEAN CORPUSCULAR HGB CONC 32.6 g/dl (32.0-36.5); MEAN CORPUSCULAR VOLUME 99.2 fl (80.0-96.0); MONO # 1.3 10^3/uL (0.0-0.8); MONO % 6.9 % (2.0-8.0); NEUTROPHILS # 15.1 10^3/uL (1.5-8.5); NEUTROPHILS % 82.3 % (36.0-66.0); PLATELET COUNT, AUTOMATED 408 10^3/uL (150-450); RED BLOOD COUNT 5.01 10^6/uL (4.00-5.40); WHITE BLOOD COUNT 18.4 10^3/uL (4.0-10.0)
[2024-06-17 15:29] LABS: KETONE, URINE AUTO RFX NEGATIVE (NEGATIVE); LEUKOCYTE ESTERASE UR AUTO RFX NEGATIVE (NEGATIVE); MUCUS, URINE RFX SMALL (NEGATIVE); NITRITE, URINE AUTO RFX NEGATIVE (NEGATIVE); RBC, URINE AUTO RFX 1 /HPF (0-3); SQUAM EPITHELIAL CELL UR AURFX 6 /HPF (0-6); WBC, URINE AUTO RFX 2 /HPF (0-3)
[2024-06-17 15:33] LABS: INR 0.85; PARTIAL THROMBOPLASTIN TIME 25.7 SECONDS (24.8-34.2); PROTHROMBIN TIME 11.9 SECONDS (12.5-14.5)
[2024-06-17 15:34] LABS: LIPASE 26 U/L (12-53)
[2024-06-17 15:35] VITALS: BP 133/67; TEMP 97.7; O2SAT 95
[2024-06-17 15:36] LABS: AMYLASE 37 U/L (30-118)
[2024-06-17 15:37] LABS: ALBUMIN 3.4 G/DL (3.2-5.2); ALKALINE PHOSPHATASE 148 U/L (35-104); ALT/SGPT 17 U/L (7.0-40); AST/SGOT 21 U/L (<34); BILIRUBIN,DIRECT < 0.1 MG/DL (<0.4); BILIRUBIN,TOTAL 0.3 MG/DL (0.3-1.2); BLOOD UREA NITROGEN 11 MG/DL (9-23); CALCIUM LEVEL 8.9 MG/DL (8.5-10.1); CARBON DIOXIDE LEVEL 26 MMOL/L (20-31); CHLORIDE LEVEL 107 MMOL/L (98-107); CREATININE FOR GFR 0.62 MG/DL (0.55-1.30); GLOMERULAR FILTRATION RATE > 60.0 (>51); GLUCOSE, FASTING 119 MG/DL (60-100); POTASSIUM SERUM 4.8 MMOL/L (3.5-5.1); SODIUM LEVEL 142 MMOL/L (136-145); TOTAL PROTEIN 7.4 G/DL (5.7-8.2)
== END 2024-06-17 15:49 | disposition left against medical advice (07) ==
LOC: M ED 13:00 → EDBD 13:00 → M ED 15:49
DX: Z53.21 Procedure and treatment not carried out due to patient leaving prior to being seen by health care provider (principal)

== ENCOUNTER → 2024-06-23 | Outpatient (CLI) | payer OTHER ==
[2024-06-23 18:08] LABS: BASO # 0.1 10^3/uL (0.0-0.2); BASO % 0.5 % (0.0-1.0); EOS # 0.3 10^3/uL (0.0-0.5); HEMATOCRIT 43.4 % (36.0-47.0); HEMOGLOBIN 14.4 g/dl (12.0-15.5); LYMPH # 3.1 10^3/uL (1.5-5.0); LYMPH % 25.1 % (24.0-44.0); MEAN CORPUSCULAR HEMOGLOBIN 32.6 pg (27.0-33.0); MEAN CORPUSCULAR HGB CONC 33.2 g/dl (32.0-36.5); MEAN CORPUSCULAR VOLUME 98.2 fl (80.0-96.0); MONO # 0.8 10^3/uL (0.0-0.8); MONO % 6.7 % (2.0-8.0); NEUTROPHILS # 8.2 10^3/uL (1.5-8.5); NEUTROPHILS % 65.2 % (36.0-66.0); PLATELET COUNT, AUTOMATED 403 10^3/uL (150-450); RED BLOOD COUNT 4.42 10^6/uL (4.00-5.40); WHITE BLOOD COUNT 12.5 10^3/uL (4.0-10.0)
[2024-06-23 18:21] LABS: ALBUMIN 3.2 G/DL (3.2-5.2); ALKALINE PHOSPHATASE 136 U/L (35-104); ALT/SGPT 13 U/L (7.0-40); AST/SGOT 8 U/L (<34); BILIRUBIN,TOTAL 0.3 MG/DL (0.3-1.2); BLOOD UREA NITROGEN 9 MG/DL (9-23); CALCIUM LEVEL 8.5 MG/DL (8.5-10.1); CARBON DIOXIDE LEVEL 30 MMOL/L (20-31); CHLORIDE LEVEL 102 MMOL/L (98-107); CREATININE FOR GFR 0.79 MG/DL (0.55-1.30); GLOMERULAR FILTRATION RATE > 60.0 (>51); GLUCOSE, FASTING 101 MG/DL (60-100); POTASSIUM SERUM 3.9 MMOL/L (3.5-5.1); SODIUM LEVEL 141 MMOL/L (136-145); TOTAL PROTEIN 6.7 G/DL (5.7-8.2)
== END ==
LOC: M PLALAB 15:31
PROVIDERS: ATTEND Family Medicine Addiction Medicine
DX: R74.8 Abnormal levels of other serum enzymes (principal)

== ENCOUNTER 2024-08-23 15:18 | Inpatient (IN) | payer OTHER ==
[~2024-08-23] VITALS: Ht 167.6 cm; Wt 133.2 kg
[2024-08-23 17:28] LABS: BASO # 0.1 10^3/uL (0.0-0.2); BASO % 0.4 % (0.0-1.0); EOS # 0.2 10^3/uL (0.0-0.5); EOS % 1.5 % (0.0-3.0); HEMATOCRIT 40.7 % (36.0-47.0); HEMOGLOBIN 13.4 g/dl (12.0-15.5); LYMPH # 2.5 10^3/uL (1.5-5.0); LYMPH % 18.5 % (24.0-44.0); MEAN CORPUSCULAR HEMOGLOBIN 32.7 pg (27.0-33.0); MEAN CORPUSCULAR HGB CONC 32.9 g/dl (32.0-36.5); MEAN CORPUSCULAR VOLUME 99.3 fl (80.0-96.0); MONO # 0.9 10^3/uL (0.0-0.8); MONO % 6.5 % (2.0-8.0); NEUTROPHILS # 9.9 10^3/uL (1.5-8.5); NEUTROPHILS % 72.7 % (36.0-66.0); PLATELET COUNT, AUTOMATED 389 10^3/uL (150-450); WHITE BLOOD COUNT 13.7 10^3/uL (4.0-10.0)
[2024-08-23 17:43] LABS: INR 0.95
[2024-08-23 17:52] LABS: CPK CREATINE PHOSPHOKINASE 75 U/L (34-145)
[2024-08-23 17:53] LABS: ALKALINE PHOSPHATASE 128 U/L (35-104); ALT/SGPT 16 U/L (7.0-40); AST/SGOT 9 U/L (<34); BILIRUBIN,DIRECT 0.1 MG/DL (<0.4); BILIRUBIN,TOTAL 0.3 MG/DL (0.3-1.2); BLOOD UREA NITROGEN 9 MG/DL (9-23); CALCIUM LEVEL 8.2 MG/DL (8.5-10.1); CARBON DIOXIDE LEVEL 31 MMOL/L (20-31); CHLORIDE LEVEL 103 MMOL/L (98-107); CK-MB VALUE MASS < 1.0 NG/ML (<3.6); GLOMERULAR FILTRATION RATE > 90.0 (>51); GLUCOSE, FASTING 112 MG/DL (60-100); MB/CK RELATIVE INDEX 1.33 (< OR =4); POTASSIUM SERUM 3.9 MMOL/L (3.5-5.1); SODIUM LEVEL 139 MMOL/L (136-145); TOTAL PROTEIN 6.4 G/DL (5.7-8.2)
[2024-08-23 17:56] LABS: THYROID STIMULATING HORMONE 1.391 uIU/ML (0.55-4.78)
[2024-08-23 19:19] LABS: CK-MB VALUE MASS < 1.0 NG/ML (<3.6)
[2024-08-23 19:21] LABS: CPK CREATINE PHOSPHOKINASE 85 U/L (34-145); MB/CK RELATIVE INDEX 1.17 (< OR =4)
[2024-08-23] MEDS: FUROSEMIDE 40MG/4ML VIAL IV ONE (19:22)
[2024-08-23 19:54] VITALS: O2SAT 87
[2024-08-23] MEDS ORDERED: ISOVUE-370 76% 100ML VIAL As Ordered ONE (20:13)
[2024-08-23] MEDS ORDERED: MOM 30ML SUSPENSION UDC PO PRN (21:25)
[2024-08-23] MEDS ORDERED: HOME MED LIST COMPLETE! XX SCH (21:25)
[2024-08-23] MEDS: ATORVASTATIN 20 MG TAB PO SCH (23:20)
[2024-08-23] MEDS: MIRTAZAPINE 15 MG TAB PO SCH (23:20)
[2024-08-23] MEDS: PREGABALIN 75 MG CAP(LYRICA) PO SCH (23:20)
[2024-08-23 23:40] VITALS: BP 140/58; TEMP 97.3; O2SAT 93
[2024-08-24 05:43] LABS: HEMATOCRIT 43.2 % (36.0-47.0); MEAN CORPUSCULAR HEMOGLOBIN 32.6 pg (27.0-33.0); MEAN CORPUSCULAR HGB CONC 32.4 g/dl (32.0-36.5); MEAN CORPUSCULAR VOLUME 100.5 fl (80.0-96.0); PLATELET COUNT, AUTOMATED 378 10^3/uL (150-450); WHITE BLOOD COUNT 13.1 10^3/uL (4.0-10.0)
[2024-08-24 06:07] LABS: ALBUMIN 3.2 G/DL (3.2-5.2); ALKALINE PHOSPHATASE 139 U/L (35-104); ALT/SGPT 13 U/L (7.0-40); AST/SGOT 16 U/L (<34); BILIRUBIN,TOTAL 0.4 MG/DL (0.3-1.2); BLOOD UREA NITROGEN 8 MG/DL (9-23); CALCIUM LEVEL 8.3 MG/DL (8.5-10.1); CARBON DIOXIDE LEVEL 28 MMOL/L (20-31); CHLORIDE LEVEL 106 MMOL/L (98-107); CREATININE FOR GFR 0.62 MG/DL (0.55-1.30); GLOMERULAR FILTRATION RATE > 90.0 (>51); GLUCOSE, FASTING 121 MG/DL (60-100); POTASSIUM SERUM 4.3 MMOL/L (3.5-5.1); SODIUM LEVEL 142 MMOL/L (136-145); TOTAL PROTEIN 6.7 G/DL (5.7-8.2)
[2024-08-24 07:16] LABS: VENOUS BASE EXCESS 2.5 (-2.0-2.0); VENOUS HCO3 30.1 MMOL/L (23.0-27.0); VENOUS O2 SATURATION 98.8 % (60.0-80.0); VENOUS PARTIAL PRESSURE O2 173.4 mmHg (30.0-50.0); VENOUS PH 7.326 UNITS (7.330-7.430); VENOUS STANDARD HCO3 26.7 MMOL/L; VENOUS TOTAL CO2 31.9 MMOL/L (24.0-28.0)
[2024-08-24 07:59] VITALS: BP 139/97; TEMP 98.1; O2SAT 92
[2024-08-24 07:59] LABS: MAGNESIUM LEVEL 2.2 MG/DL (1.8-2.4)
[2024-08-24] MEDS: FUROSEMIDE 20MG/2ML VIAL IV SCH (08:46)
[2024-08-24] MEDS: ENOXAPARIN 40MG/0.4ML SYRINGE (J1650 PER 10MG) SC SCH (08:47)
[2024-08-24] MEDS: buPROPion **XL** TABLET 150MG (WELLBUTRIN XL) PO SCH (08:47)
[2024-08-24] MEDS: ASPIRIN 81MG CHEW TABLET PO SCH (08:47)
[2024-08-24] MEDS: DULoxetine 30MG CAPSULE (CYMBALTA) PO SCH (08:47)
[2024-08-24] MEDS ORDERED: FURO20TA2 PO (10:26)
[2024-08-24 12:04] VITALS: BP 142/82; TEMP 98.2; O2SAT 93
== END 2024-08-24 15:01 | disposition home or self-care (01) | DRG 194 ==
LOC: M ED 15:18 → M ED INP 21:23 → M PCU 22:42
PROVIDERS: ADMIT Family Medicine; ATTEND Family Medicine
DX: I11.0 Hypertensive heart disease with heart failure (principal); Z68.42 Body mass index [BMI] 45.0-49.9, adult; I25.10 Atherosclerotic heart disease of native coronary artery without angina pectoris; E78.5 Hyperlipidemia, unspecified; E66.9 Obesity, unspecified; M54.9 Dorsalgia, unspecified; M25.551 Pain in right hip; M25.552 Pain in left hip; G89.29 Other chronic pain; F17.210 Nicotine dependence, cigarettes, uncomplicated; F32.A Depression, unspecified; F41.9 Anxiety disorder, unspecified; Z90.49 Acquired absence of other specified parts of digestive tract; Z90.79 Acquired absence of other genital organ(s); Z79.82 Long term (current) use of aspirin; Z79.899 Other long term (current) drug therapy; Z88.0 Allergy status to penicillin; Z91.040 Latex allergy status; I50.9 Heart failure, unspecified

== ENCOUNTER → 2024-11-02 | Outpatient (REF) | payer OTHER ==
[~2024-11-02] MED LIST changes: -BUPR-597; +BUPR-766; +FURO20TA2 PO; -PREG50CA PO; +PREG50CA87 PO
== END ==
LOC: M LAB REF 11:45
PROVIDERS: ATTEND Physician Assistant
DX: N61.1 Abscess of the breast and nipple (principal)

== ENCOUNTER → 2025-03-02 | Outpatient (CLI) | payer OTHER ==
[2025-03-02 16:16] LABS: ALT/SGPT 16 U/L (7.0-40); AST/SGOT 14 U/L (<34); CALCIUM LEVEL 8.8 MG/DL (8.5-10.1); CARBON DIOXIDE LEVEL 29 MMOL/L (20-31); CHLORIDE LEVEL 102 MMOL/L (98-107); CHOLESTEROL LEVEL 157 MG/DL (<200); CHOLESTEROL RISK RATIO 5.18 (<5); CREATININE FOR GFR 0.73 MG/DL (0.55-1.30); ESTIMATED AVERAGE GLUCOSE 137.0 MG/DL (60-110); GLOMERULAR FILTRATION RATE > 90.0 (>51); LDL CHOLESTEROL 75.3 MG/DL (<100); NON-HDL-C 126.7 MG/DL; POTASSIUM SERUM 4.4 MMOL/L (3.5-5.1); SODIUM LEVEL 141 MMOL/L (136-145); TRIGLYCERIDES LEVEL 257 MG/DL (<150)
== END ==
LOC: M PLALAB 13:41
PROVIDERS: ATTEND Family Medicine Addiction Medicine
DX: R73.9 Hyperglycemia, unspecified (principal)